=== PATIENT | male | born 1950 | race Caucasian/White ===

== ENCOUNTER 2017-09-15 13:48 | Inpatient (IN) | payer OTHER ==
[~2017-09-15] VITALS: Ht 172.7 cm; Wt 81.3 kg
[~2017-09-15 13:48] MED LIST: BENZ-89 PO; LORA-741 PO; RISP3TAB11 PO; TEMA30CA4 PO
[2017-09-15] MEDS ORDERED: SODIUM CHLORIDE 0.9% 1000ML 1,000 ML IV ONE (13:54)
[2017-09-15] MEDS ORDERED: ALBUT/IPRATROP 3MG/0.5MG NEB 3 ML VIAL INH STA (13:59)
[2017-09-15] MEDS ORDERED: ACETAMINOPHEN 325 MG TAB PO ONE (14:00)
--- NOTE | 2017-09-15 14:06 | EMERGENCY ROOM VISIT NOTE ---
History Report prepared by Reji: Tyler Gaytan Under the Supervision of: Dr. Librado Reeder D.O. First contact with patient: 13:50 Stated Complaint: SOB/ILLNESS/FEVER History of Present Illness The patient is a 67 year old male who presents to the Emergency Room with complaints of a persistent illness for the past 20 weeks. The patient states that he has a fever, weakness, productive cough, dizziness, and he is losing his balance. He states that he has not taken any Motrin or Tylenol, though he states that he is taking all of his medications. He notes that he is not hearing any voices, and he does not have any thoughts of hurting himself. Per the EMS, the patient had his pneumonia vaccination this year. The patient currently is a smoker, and he does not use any inhalers. History is limited to altered mental status. Source of History: patient History Limited By: AMS Onset: 20 weeks ago Position: other (global) Quality: other (illness) Timing: other (persistent) Associated Symptoms: + fevers, + cough, + weakness Note: Associated symptoms: Dizziness Review of Systems History was limited secondary to altered mental status Past Medical & Surgical Medical Problems: (1) Chronic paranoid schizophrenia Family History No significant family history Social History Smoking Status: Current Every Day Smoker Alcohol Use: none Drug Use: none Marital Status: other Housing Status: other Occupation Status: other Current/Historical Medications Scheduled Risperidone (Risperdal), 4 MG PO BID Temazepam (Restoril), 30 MG PO HS Scheduled PRN Lorazepam (Lorazepam), 1 MG PO BID PRN for Anxiety Allergies Coded Allergies: [place] (Unverified Allergy, Unknown, UNKNOWN, 09/15/17) Physical Exam Vital Signs Date Time Temp Pulse Resp B/P (MAP) Pulse Ox O2 Delivery O2 Flow Rate FiO2 09/15/17 17:31 99 22 133/88 96 Nasal Cannula 4.0 09/15/17 16:17 37.1 108 18 134/76 93 Nasal Cannula 4.0 09/15/17 15:08 38.6 109 24 164/98 99 Nasal Cannula 4.0 09/15/17 14:17 95 Nasal Cannula 4.0 09/15/17 14:09 90 Room Air 09/15/17 14:09 38.1 131 24 137/70 90 Room Air 1/19/18 14:09 90 Room Air 09/15/17 14:06 123 Physical Exam GENERAL: Patient is awake, altered, slow to answer questions, intermittently follows commands. EYES: The conjunctivae are clear. The pupils are round and reactive. EARS, NOSE, MOUTH AND THROAT: The nose is without any evidence of any deformity. Mucous membranes are moist tongue is midline NECK: The neck is nontender and supple. RESPIRATORY: Breath sounds diminished at the right base. Wheezing noted at the right base. CARDIOVASCULAR: Tachycardic but regular. No definite murmur noted to auscultation. GASTROINTESTINAL: The abdomen is soft. Bowel sounds are present in all quadrants. Abdomen is nontender MUSCULOSKELETAL/EXTREMITIES: There is no evidence of gross deformity full range of motion is noted in the hips and shoulders SKIN: There is no obvious evidence of any rash. There are no petechiae, pallor or cyanosis noted. NEUROLOGIC: Patient is oriented to person, place, and situation. Strength was symmetric. Medical Decision & Procedures ER Provider Diagnostic Interpretation: Radiology results as stated below per my review and radiologist interpretation: CHEST ONE VIEW PORTABLE CLINICAL HISTORY: Sepsis dyspnea COMPARISON STUDY: 08/11/2016 FINDINGS: Lungs are grossly clear. Slight chronic interstitial prominence. No evidence for cardiac enlargement. Diaphragms are smooth. IMPRESSION: Chronic change. No acute process. The above report was generated using voice recognition software. It may contain grammatical, syntax or spelling errors. Electronically signed by: Jimmy Eagle M.D. 09/15/2017 2:18 PM Dictated Date/Time: 09/15/2017 2:[address] ANGIOGRAM OF THE CHEST CLINICAL HISTORY: Dyspnea. COMPARISON STUDY: Chest CT dated 09/17/2015. Chest x-ray dated 09/15/2017. TECHNIQUE: Following the IV administration of 89 cc of Optiray 320, CT angiogram of the chest was performed from the upper abdomen to the thoracic inlet utilizing the pulmonary embolus protocol. Images are reviewed in the axial, sagittal, and coronal planes. 3-D MIPS images are created and assessed. IV contrast was administered without complication. The examination is significantly degraded by motion artifact. CT DOSE: 680.97 mGy.cm FINDINGS: Thyroid: Imaged portions of the thyroid gland are normal in size and attenuation. Thoracic aorta: There is mild atherosclerotic calcification of the thoracic aorta, which is normal in caliber and demonstrates standard 3-vessel arch anatomy. No dissection is seen. Pulmonary vasculature: The pulmonary trunk is normal in caliber. There are no filling defects identified in main, lobar, or proximal segmental pulmonary branches to suggest pulmonary embolus. Evaluation of the peripheral branches is degraded by motion artifact. Heart: The heart is enlarged and without pericardial effusion. There are coronary artery calcifications. Lungs and pleural spaces: Evaluation of the lung parenchyma is degraded by motion artifact. There are advanced emphysematous changes. Trace pleural effusions are identified. There is no airspace consolidation typical for pneumonia. Mild peribronchial thickening is likely related to reactive airway disease. The trachea and central airways are clear. Mediastinum: There is no mediastinal lymphadenopathy. Nataly: Clear. Axillae: There is no axillary lymphadenopathy. Upper abdomen: There is a moderate hiatal hernia. There is atherosclerotic calcification of the visualized abdominal aorta. A calcified granuloma is seen in the spleen. There is a punctate nonobstructing left renal calculus. Diverticula are noted in the partially imaged left colon. Skeletal structures: The skeletal structures are osteopenic. No lytic or blastic bony lesions are seen. There is nonunion of a chronic distracted left posterior ninth rib fracture. IMPRESSION: 1. Motion compromised examination. 2. There is no evidence of pulmonary embolus in the main, lobar, or proximal segmental pulmonary arteries. 3. Advanced emphysema. 4. Trace pleural effusions are identified. No airspace consolidation is seen typical for pneumonia. Mild diffuse peribronchial thickening suggests reactive airway disease. Clinical correlation will be required. 5. Additional findings as above. Electronically signed by: Buck Guadarrama M.D. 09/15/2017 4:09 PM Dictated Date/Time: 09/15/2017 4:03 PM Laboratory Results Test 09/15/17 14:28 09/15/17 15:15 09/15/17 17:35 Erythrocyte Sedimentation Rate 3 mm/hr (0-14) Prothrombin Time 11.0 SECONDS (9.0-12.0) Prothromb Time International Ratio 1.0 (0.9-1.1) Activated Partial Thromboplast Time 33.5 SECONDS (21.0-31.0) Partial Thromboplastin Ratio 1.3 Venous Blood pH 7.37 (7.36-7.41) Venous Blood Partial Pressure CO2 46 mmHg (38.0-50.0) Venous Blood Partial Pressure O2 42 mmHg Venous Blood HCO3 26 mmol/L Venous Blood Oxygen Saturation 74.1 % Venous Blood Base Excess 0.2 mEq/L Phosphorus Level 2.9 mg/dl (2.5-4.9) Total Bilirubin 0.5 mg/dl (0.2-1) Aspartate Amino Transf (AST/SGOT) 29 U/L (15-37) Alanine Aminotransferase (ALT/SGPT) 25 U/L (12-78) Alkaline Phosphatase 33 U/L (45-117) Total Creatine Kinase 520 U/L (39-308) Creatine Kinase MB 1.6 ng/ml (0.5-3.6) Creatine Kinase MB Ratio 0.3 (0-3.0) C-Reactive Protein 5.30 mg/dl (0-0.29) Pro-B-Type Natriuretic Peptide 312 pg/ml (0-900) Total Protein 6.8 gm/dl (6.4-8.2) Albumin 3.7 gm/dl (3.4-5.0) Globulin 3.1 gm/dl (2.5-4.0) Albumin/Globulin Ratio 1.2 (0.9-2) Lipase 176 U/L (73-393) Influenza Type A Antigen POS for Influ A (NEG) Influenza Type B Antigen Neg for Influ B (NEG) Urine Color YELLOW Urine Appearance CLEAR (CLEAR) Urine pH 5.5 (4.5-7.5) Urine Specific [place] 1.041 (1.000-1.030) Urine Protein TRACE (NEG) Urine Glucose (UA) NEG (NEG) Urine Ketones TRACE (NEG) Urine Occult Blood NEG (NEG) Urine Nitrite NEG (NEG) Urine Bilirubin NEG (NEG) Urine Urobilinogen NEG (NEG) Urine Leukocyte Esterase NEG (NEG) Urine WBC (Auto) 1-5 /hpf (0-5) Urine RBC (Auto) 5-10 /hpf (0-4) Urine Hyaline Casts (Auto) 1-5 /lpf (0-5) Urine Epithelial Cells (Auto) 5-10 /lpf (0-5) Urine Bacteria (Auto) NEG (NEG) Date/Time Source Procedure Growth Status 09/15/17 00:00 Nasal MRSA DNA Surveillance Screen - Final Specimen Negative for MRSA by DNA Probe Complete Laboratory results per my review. Medications Administered Medications (Trade) Dose Ordered Sig/[place] Route Start Time Stop Time Status Last Admin Dose Admin Sodium Chloride 1,000 ml @ 999 mls/hr Q1H1M ONCE IV 09/15/17 13:54 09/15/17 14:54 DC 09/15/17 15:07 999 MLS/HR Acetaminophen (Tylenol Tab) 650 mg ONE ONCE PO 09/15/17 14:00 09/15/17 14:01 DC 09/15/17 15:07 650 MG Albuterol/ Ipratropium (Duoneb) 3 ml NOW STAT INH 09/15/17 13:59 09/15/17 14:00 DC 09/15/17 15:07 3 ML Magnesium Sulfate (Magnesium Sulfate) 1 gm NOW STAT IV 09/15/17 15:17 09/15/17 15:18 DC 09/15/17 16:16 1 GM Oseltamivir Phosphate (Tamiflu Cap) 75 mg NOW STAT PO 09/15/17 16:09 09/15/17 16:10 DC 09/15/17 16:16 75 MG ECG Indication: other (illness and hypoxia) Rate (beats per minute): 130 Rhythm: other (Multifocal atrial tachycardia) Findings: PAC, other (Low voltage noted throughout. No significant ST segment abnormalities) Comparison ECG Date: 08/11/16 Change: Changes are new. EKG has been interpreted by me. ED Course 1350: The patient was evaluated in room A3. A complete history and physical examination were performed. 1354: NSS 1,000 ml @ 999 mls/hr IV 1359: DuoNeb 3ml INH 1400: Tylenol 650mg PO 1517: Magnesium Sulfate 1gm IV 1609: Tamiflu Cap 75mg PO 1610: Upon reevaluation, the patient is resting. I discussed results and treatment plan with him. The patient will be evaluated for further management and care. 1614: I discussed the patient's case with Saundra Billy PA-C. The patient will be evaluated for further management. Medical Decision Differential diagnosis: Etiologies such as infections, reactive airway disease, pneumonia, pneumothorax , COPD, CHF, cardiac ischemia, pulmonary embolism, musculoskeletal, gastrointestinal, as well as others were entertained. Nursing notes reviewed. Additional history was obtained from the prehospital personnel. The patient is a 67-year-old male who presented to the emergency department for an acute febrile illness. The patient had respiratory symptoms such as cough. His CBC did not reveal significant elevation in his white blood cell count with the patient had tachycardia and fever. His EKG showed some abnormalities consistent with multifocal atrial tachycardia. His troponin was mildly elevated. His flu swab was positive. The patient was treated with IV fluids as well as Tamiflu. I discussed the patient's laboratory and radiographic studies with him. I also discussed his case with the on-call [facility] hospitalist group. They've agreed to evaluate the patient in the emergency department for further management and disposition. He was treated with bronchodilator therapy as well as a DuoNeb. On subsequent reevaluation he was significantly improved. Medication Reconcilliation Current Medication List: was personally reviewed by me Blood Pressure Screening Patient's blood pressure: Elevated blood pressure Monitored by the hospitalist. Consults Time Called: 1610 Consulting Physician: Saundra Billy PA-C Returned Call: 1614 I discussed the patient's case with Saundra Billy PA-C. The patient will be evaluated for further management. Impression Primary Impression: Influenza Additional Impressions: Fever Hypoxia Elevated troponin Scribe Attestation The scribe's documentation has been prepared under my direction and personally reviewed by me in its entirety. I confirm that the note above accurately reflects all work, treatment, procedures, and medical decision making performed by me. Departure Information Dispostion Being Evaluated By Hospitalist Referrals No Doctor, Assigned (PCP) Problem Qualifiers Additional Impressions: Fever Fever type: unspecified Qualified Codes: R50.9 - Fever, unspecified
--- NOTE | 2017-09-15 14:19 | DIAGNOSTIC IMAGING REPORT ---
CHEST ONE VIEW PORTABLE CLINICAL HISTORY: Sepsis dyspnea COMPARISON STUDY: 08/11/2016 FINDINGS: Lungs are grossly clear. Slight chronic interstitial prominence. No evidence for cardiac enlargement. Diaphragms are smooth. IMPRESSION: Chronic change. No acute process. The above report was generated using voice recognition software. It may contain grammatical, syntax or spelling errors. Electronically signed by: Jimmy Eagle M.D. 09/15/2017 2:18 PM Dictated Date/Time: 09/15/2017 2:17 PM
[2017-09-15 14:57] LABS: BASO % 0.7 %; BASO ABS # 0.05 K/uL (0-0.2); HEMATOCRIT 44.5 % (42-52); HEMOGLOBIN 15.2 g/dL (14.0-18.0); IG# 0.02 K/uL (0.00-0.02); LYMPH % 6.9 %; LYMPH ABS # 0.48 K/uL (1.2-3.4); MEAN CELL VOLUME 90.4 fL (80-100); MEAN CORPUSCULAR HEMOGLOBIN 30.9 pg (25-34); MEAN CORPUSCULAR HGB CONC 34.2 g/dl (32-36); MEAN PLATELET VOLUME 10.1 fL (7.4-10.4); MONO ABS # 1.11 K/uL (0.11-0.59); NEUT % 76.1 %; NEUT ABS # 5.26 K/uL (1.4-6.5); PLATELET COUNT 186 K/uL (130-400); RED CELL DISTRIBUTION WIDTH CV 14.3 % (11.5-14.5); RED CELL DISTRIBUTION WIDTH SD 47.9 fL (36.4-46.3); WHITE BLOOD COUNT 6.92 K/uL (4.8-10.8)
[2017-09-15] MEDS ORDERED: RST/30 PO (14:57)
[2017-09-15] MEDS ORDERED: ATV1 PO (14:57)
[2017-09-15] MEDS ORDERED: RISP4TAB2 PO (14:57)
[2017-09-15] MEDS ORDERED: RSP3 PO (14:57)
[2017-09-15 15:04] LABS: PTT PATIENT 33.5 SECONDS (21.0-31.0)
[2017-09-15 15:16] LABS: ALBUMIN 3.7 gm/dl (3.4-5.0); CALCIUM 8.7 mg/dl (8.5-10.1); CREATININE 1.4 mg/dl (0.60-1.40); POTASSIUM 4.2 mmol/L (3.5-5.1)
[2017-09-15] MEDS ORDERED: MAGNESIUM SULFATE 1GM / D5W 1 GM BAG IV STA (15:17)
[2017-09-15 15:21] LABS: CKMB 1.6 ng/ml (0.5-3.6); PHOSPHORUS 2.9 mg/dl (2.5-4.9); TOTAL PROTEIN 6.8 gm/dl (6.4-8.2)
[2017-09-15] MEDS ORDERED: OPTIRAY 320 IV PRN (15:30)
[2017-09-15 15:58] LABS: INFLUENZA B ANTIGEN Neg for Influ B (NEG)
[2017-09-15] MEDS ORDERED: OSELTAMIVIR PHOSPHATE 75 MG CAP PO STA (16:09)
--- NOTE | 2017-09-15 16:10 | DIAGNOSTIC IMAGING REPORT ---
CT ANGIOGRAM OF THE CHEST CLINICAL HISTORY: Dyspnea. COMPARISON STUDY: Chest CT dated 09/17/2015. Chest x-ray dated 09/15/2017. TECHNIQUE: Following the IV administration of 89 cc of Optiray 320, CT angiogram of the chest was performed from the upper abdomen to the thoracic inlet utilizing the pulmonary embolus protocol. Images are reviewed in the axial, sagittal, and coronal planes. 3-D MIPS images are created and assessed. IV contrast was administered without complication. The examination is significantly degraded by motion artifact. CT DOSE: 680.97 mGy.cm FINDINGS: Thyroid: Imaged portions of the thyroid gland are normal in size and attenuation. Thoracic aorta: There is mild atherosclerotic calcification of the thoracic aorta, which is normal in caliber and demonstrates standard 3-vessel arch anatomy. No dissection is seen. Pulmonary vasculature: The pulmonary trunk is normal in caliber. There are no filling defects identified in main, lobar, or proximal segmental pulmonary branches to suggest pulmonary embolus. Evaluation of the peripheral branches is degraded by motion artifact. Heart: The heart is enlarged and without pericardial effusion. There are coronary artery calcifications. Lungs and pleural spaces: Evaluation of the lung parenchyma is degraded by motion artifact. There are advanced emphysematous changes. Trace pleural effusions are identified. There is no airspace consolidation typical for pneumonia. Mild peribronchial thickening is likely related to reactive airway disease. The trachea and central airways are clear. Mediastinum: There is no mediastinal lymphadenopathy. Nataly: Clear. Axillae: There is no axillary lymphadenopathy. Upper abdomen: There is a moderate hiatal hernia. There is atherosclerotic calcification of the visualized abdominal aorta. A calcified granuloma is seen in the spleen. There is a punctate nonobstructing left renal calculus. Diverticula are noted in the partially imaged left colon. Skeletal structures: The skeletal structures are osteopenic. No lytic or blastic bony lesions are seen. There is nonunion of a chronic distracted left posterior ninth rib fracture. IMPRESSION: 1. Motion compromised examination. 2. There is no evidence of pulmonary embolus in the main, lobar, or proximal segmental pulmonary arteries. 3. Advanced emphysema. 4. Trace pleural effusions are identified. No airspace consolidation is seen typical for pneumonia. Mild diffuse peribronchial thickening suggests reactive airway disease. Clinical correlation will be required. 5. Additional findings as above. Electronically signed by: Buck Guadarrama M.D. 09/15/2017 4:09 PM Dictated Date/Time: 09/15/2017 4:03 PM
--- NOTE | 2017-09-15 16:36 | History and Physical ---
History & Physical Date & Time of Service: Sep 15, 2017 at 16:35 Chief Complaint: Sob/Illness/Fever Primary Care Physician: No Doctor, Assigned History of Present Illness Source: patient Patient is a 67 yr male with Paranoid Schizophrenia, Dementia, Leukemia per records, Current Tobacco use presents with history of fever, weakness, non productive cough, dizziness and has been having balance issues since last 2-3 weeks. Patient is a poor historian and history id limited secondary to Schizophrenia, dementia and most of the history is obtained on reviewing the records. Patient is reports he is having balance issues since this morning and doesn't feel well. He admits to smoking on a daily basis. He is positive for Influenza and CT chest is suggestive of advanced emphysema, No PE, trace pleural effusion and reactive airway disease. Patient denies any chest pain, SOB , palpitations, fall, head trauma, change in vision, nausea, vomiting, abdominal pain, diarrhea, dysuria. He also denies any suicidal/Homicidal thoughts. Past Medical/Surgical History Medical Problems: (1) Chronic paranoid schizophrenia Status: Chronic Family History No significant family history Could not be obtained. Social History Smoking Status: Current Every Day Smoker Alcohol Use: none Drug Use: none Marital Status: other Housing status: other Occupational Status: other Immunizations History of Influenza Vaccine: Yes Influenza Vaccine Date: Jun 01, 2012 History of Tetanus Vaccine?: unknown History of Pneumococcal: No History of Hepatitis B Vaccine: Unknown Multi-Drug Resistant Organisms History of MDRO: No Allergies Coded Allergies: [place] (Unverified Allergy, Unknown, UNKNOWN, 09/15/17) Home Medications Scheduled Lorazepam (Lorazepam), 1 MG PO TID Risperidone (Risperdal), 4 MG PO BID Risperidone (Risperidone), 3 MG PO QAM Temazepam (Restoril), 30 MG PO HS Review of Systems Complete ROS could not be obtained secondary to patient status Physical Exam Vital Signs Date Time Temp Pulse Resp B/P (MAP) Pulse Ox O2 Delivery O2 Flow Rate FiO2 09/15/17 16:17 37.1 108 18 134/76 93 Nasal Cannula 4.0 09/15/17 15:08 38.6 109 24 164/98 99 Nasal Cannula 4.0 09/15/17 14:17 95 Nasal Cannula 4.0 09/15/17 14:09 90 Room Air 09/15/17 14:09 38.1 131 24 137/70 90 Room Air 09/15/17 14:09 90 Room Air 09/15/17 14:06 123 General Appearance: WD/WN, no apparent distress Head: normocephalic, atraumatic Eyes: normal inspection, PERRL, EOMI ENT: normal ENT inspection, hearing grossly normal Neck: supple, trachea midline Respiratory/Chest: chest non-tender, no respiratory distress, no accessory muscle use, + decreased breath sounds, + wheezing (Scattered) Cardiovascular: regular rate, rhythm, no edema, no murmur, + tachycardia Abdomen/GI: normal bowel sounds, non tender, soft Back: normal inspection Extremities/Musculoskelatal: normal inspection, no pedal edema Neurologic/Psych: 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 II-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 nml as tested, no motor/sensory deficits, alert, normal mood/affect, oriented x 3 Skin: normal color, warm/dry Diagnostics Laboratory Results Results Past 24 Hours Test 09/15/17 14:28 09/15/17 15:15 Range/Units White Blood Count 6.92 4.8-10.8 K/uL Red Blood Count 4.92 4.7-6.1 M/uL Hemoglobin 15.2 14.0-18.0 g/dL Hematocrit 44.5 42-52 % Mean Corpuscular Volume 90.4 80-100 fL Mean Corpuscular Hemoglobin 30.9 25-34 pg Mean Corpuscular Hemoglobin Concent 34.2 32-36 g/dl Platelet Count 186 130-400 K/uL Mean Platelet Volume 10.1 7.4-10.4 fL Neutrophils (%) (Auto) 76.1 % Lymphocytes (%) (Auto) 6.9 % Monocytes (%) (Auto) 16.0 % Eosinophils (%) (Auto) 0.0 % Basophils (%) (Auto) 0.7 % Neutrophils # (Auto) 5.26 1.4-6.5 K/uL Lymphocytes # (Auto) 0.48 1.2-3.4 K/uL Monocytes # (Auto) 1.11 0.11-0.59 K/uL Eosinophils # (Auto) 0.00 0-0.5 K/uL Basophils # (Auto) 0.05 0-0.2 K/uL RDW Standard Deviation 47.9 36.4-46.3 fL RDW Coefficient of Variation 14.3 11.5-14.5 % Immature Granulocyte % (Auto) 0.3 % Immature Granulocyte # (Auto) 0.02 0.00-0.02 K/uL Erythrocyte Sedimentation Rate 3 0-14 mm/hr Prothrombin Time 11.0 9.0-12.0 SECONDS Prothromb Time International Ratio 1.0 0.9-1.1 Activated Partial Thromboplast Time 33.5 21.0-31.0 SECONDS Partial Thromboplastin Ratio 1.3 Venous Blood pH 7.37 7.36-7.41 Venous Blood Partial Pressure CO2 46 38.0-50.0 mmHg Venous Blood Partial Pressure O2 42 mmHg Venous Blood HCO3 26 mmol/L Venous Blood Oxygen Saturation 74.1 % Venous Blood Base Excess 0.2 mEq/L Sodium Level 131 136-145 mmol/L Potassium Level 4.2 3.5-5.1 mmol/L Chloride Level 98 98-107 mmol/L Carbon Dioxide Level 27 21-32 mmol/L Anion Gap 6.0 3-11 mmol/L Blood Urea Nitrogen 21 7-18 mg/dl Creatinine 1.40 0.60-1.40 mg/dl Est Creatinine Clear Calc Drug Dose 55.3 ml/min Estimated GFR () 60.3 Estimated GFR (Non- 52.0 BUN/Creatinine Ratio 15.3 10-20 Random Glucose 85 70-99 mg/dl Calcium Level 8.7 8.5-10.1 mg/dl Phosphorus Level 2.9 2.5-4.9 mg/dl Magnesium Level 1.7 1.8-2.4 mg/dl Total Bilirubin 0.5 0.2-1 mg/dl Aspartate Amino Transf (AST/SGOT) 29 15-37 U/L Alanine Aminotransferase (ALT/SGPT) 25 12-78 U/L Alkaline Phosphatase 33 45-117 U/L Total Creatine Kinase 520 39-308 U/L Creatine Kinase MB 1.6 0.5-3.6 ng/ml Creatine Kinase MB Ratio 0.3 0-3.0 Troponin I 0.064 0-0.045 ng/ml C-Reactive Protein 5.30 0-0.29 mg/dl Pro-B-Type Natriuretic Peptide 312 0-900 pg/ml Total Protein 6.8 6.4-8.2 gm/dl Albumin 3.7 3.4-5.0 gm/dl Globulin 3.1 2.5-4.0 gm/dl Albumin/Globulin Ratio 1.2 0.9-2 Lipase 176 73-393 U/L Influenza Type A Antigen POS for Influ A NEG Influenza Type B Antigen Neg for Influ B NEG Microbiology Results 09/15/17 Blood Culture, Received Pending 09/15/17 Blood Culture, Received Pending Diagnostic Radiology CTA: 1. Motion compromised examination. 2. There is no evidence of pulmonary embolus in the main, lobar, or proximal segmental pulmonary arteries. 3. Advanced emphysema. 4. Trace pleural effusions are identified. No airspace consolidation is seen typical for pneumonia. Mild diffuse peribronchial thickening suggests reactive airway disease. Clinical correlation will be required. 5. Additional findings as above. EKG EKG: Sinus tachycardia with Premature atrial complexes Impression Assessment and Plan Influenza Meets SIRS Criteria Started on Tamiflu Oxygen PRN Empirically start on IV Abx CTA:suggestive of advanced emphysema, No PE, trace pleural effusion and reactive airway disease Check Lactate, Procalcitonin Gentle IV fluids Blood Cultures Obtained UA: pending Nebs Hyponatremia/Hypomagnesemia: Likely secondary to dehydration Replace electrolytes IV fluids Monitor Mild Troponin Elevation: Likely secondary to Tachycardia Denies chest Pain EKG: Sinus Tachycardia with PACs Trend Troponin ECHO to check for wall motion abnormality Advanced COPD: Ongoing Tobacco Use: Refuses Nicotine patch Nebs Paranoid Schizophrenia: Dementia: Continue home meds Psychiatry consulted Leukemia per records: Patient unaware of status. Currently not on meds per records DVT Px: SQ Lovenox Code Status: Full Code Disposition: creative services director consulted
[2017-09-15] MEDS ORDERED: ACETAMINOPHEN 325 MG TAB PO PRN (18:00)
[2017-09-15] MEDS ORDERED: ONDANSETRON INJ 2 MG/ML 2 ML VIAL IV PRN (18:00)
[2017-09-15] MEDS ORDERED: AZITHROMYCIN 250 MG TAB PO ONE (18:15)
[2017-09-15 19:43] VITALS: BP 115/76; PULSE 94; TEMP 37.1; O2SAT 95
[2017-09-15 19:45] VITALS: BP 115/76; PULSE 94; TEMP 37.1; O2SAT 95; Ht 172.7 cm; Wt 81.3 kg
[2017-09-15] MEDS ORDERED: TEMAZEPAM 15 MG CAP PO SCH (21:00)
[2017-09-15] MEDS ORDERED: LORAZEPAM 1 MG TAB PO SCH (21:00)
[2017-09-15] MEDS: SODIUM CHLORIDE 0.9% 1000ML 1,000 ML IV SCH (21:04)
[2017-09-15] MEDS: CEFTRIAXONE SOD INJ 1 GM in DEXTROSE 5% ADD-VANTAGE 50ML 50 ML IV SCH (21:06)
[2017-09-15] MEDS: ENOXAPARIN 40 MG/0.4 ML SYR SC SCH (21:07)
[2017-09-15] MEDS: OSELTAMIVIR PHOSPHATE 75 MG CAP PO SCH (21:47)
[2017-09-15] MEDS: ALBUT/IPRATROP 3MG/0.5MG NEB 3 ML VIAL INH SCH (22:13)
[2017-09-15 22:16] VITALS: PULSE 103; O2SAT 92
[2017-09-16] VITALS (11 sets, daily range): BP systolic 106–142; BP diastolic 69–89; PULSE 81–99; TEMP 36.5–37.4; O2SAT 90–97
[2017-09-16 02:38] LABS: HEMATOCRIT 41.9 % (42-52); HEMOGLOBIN 14.3 g/dL (14.0-18.0); IG# 0.01 K/uL (0.00-0.02); LYMPH % 6.5 %; LYMPH ABS # 0.42 K/uL (1.2-3.4); MEAN CELL VOLUME 91.5 fL (80-100); MEAN CORPUSCULAR HEMOGLOBIN 31.2 pg (25-34); MEAN CORPUSCULAR HGB CONC 34.1 g/dl (32-36); MEAN PLATELET VOLUME 9.8 fL (7.4-10.4); MONO % 11.1 %; MONO ABS # 0.71 K/uL (0.11-0.59); NEUT % 82.2 %; NEUT ABS # 5.28 K/uL (1.4-6.5); PLATELET COUNT 174 K/uL (130-400); RED CELL DISTRIBUTION WIDTH CV 14.4 % (11.5-14.5); RED CELL DISTRIBUTION WIDTH SD 48.8 fL (36.4-46.3); WHITE BLOOD COUNT 6.42 K/uL (4.8-10.8)
[2017-09-16 02:55] LABS: CALCIUM 7.7 mg/dl (8.5-10.1); CREATININE 1.2 mg/dl (0.60-1.40); POTASSIUM 4.6 mmol/L (3.5-5.1)
[2017-09-16] MEDS: ALBUT/IPRATROP 3MG/0.5MG NEB 3 ML VIAL INH SCH ×4 (07:21→19:17)
[2017-09-16] MEDS: AZITHROMYCIN 250 MG TAB PO SCH (08:14)
[2017-09-16] MEDS: OSELTAMIVIR PHOSPHATE 75 MG CAP PO SCH ×2 (08:14→19:57)
[2017-09-16] MEDS: LORAZEPAM 0.5 MG TAB PO SCH ×2 (08:14→13:45)
[2017-09-16] MEDS: RISPERIDONE 2 MG TAB PO SCH ×2 (08:15→13:45)
[2017-09-16] MEDS ORDERED: RISPERIDONE 3 MG TAB PO SCH (09:00)
--- NOTE | 2017-09-16 09:19 | Progress Note ---
Internal Med Progress Note Date of Service: Sep 16, 2017. Provider Documentation: SUBJECTIVE: Seen and examined at bedside Feels tired Reports cough Less SOB Denies chest pain Denies nausea, dizziness, abd pain No suicidal thoughts or hallucinations Saturating 96% on room air OBJECTIVE: Vital Signs-as noted below General Appearance: WD/WN, no apparent distress Head: normocephalic, atraumatic Eyes: normal inspection, PERRL, EOMI ENT: normal ENT inspection, hearing grossly normal Neck: supple, trachea midline Respiratory/Chest: Decreased breath sounds, scattered wheezing Cardiovascular: S1, S2, No murmur Abdomen/GI: normal bowel sounds, non tender, soft Back: normal inspection Extremities/Musculoskelatal: normal inspection, no pedal edema Neurologic/Psych: AAOX3, grossly no focal deficits Skin: normal color, warm/dry Lab data as noted below. ASSESSMENT & PLAN: Influenza Meets SIRS Criteria Continue Tamiflu day # 2 Oxygen PRN Continue empiric Abx for now CTA:suggestive of advanced emphysema, No PE, trace pleural effusion and reactive airway disease Lactate, Procalcitonin levels normal Continue IV fluids Blood Cultures: pending Continue Nebs NSVT: Check ECHO Monitor electrolytes Stress test as outpatient consider metoprolol if recurrent Hyponatremia/Hypomagnesemia: Likely secondary to dehydration Replace electrolytes PRN Continue IV fluids Monitor Mild Troponin Elevation: Likely secondary to Tachycardia Denies chest Pain EKG: Sinus Tachycardia with PACs Troponin trending down ECHO pending Advanced COPD: Ongoing Tobacco Use: Refuses Nicotine patch Continue Nebs Continue Prednisone 20mg daily Paranoid Schizophrenia: Dementia: Continue home meds Psychiatry consulted Leukemia per records: Patient unaware of status. Currently not on meds per records DVT Px: SQ Lovenox Code Status: Full Code Disposition: business services coordinator consulted Vital Signs: Date Time Temp Pulse Resp B/P (MAP) Pulse Ox O2 Delivery O2 Flow Rate FiO2 09/16/17 11:09 86 18 95 Room Air 09/16/17 08:00 Room Air 09/16/17 07:15 81 18 96 Room Air 09/16/17 06:57 36.8 87 20 122/80 (94) 91 Room Air 09/16/17 04:00 Nasal Cannula 4.0 09/16/17 03:22 37.4 85 18 106/69 (81) 97 09/16/17 00:29 Nasal Cannula 4.0 09/16/17 00:16 37.0 90 16 113/72 (86) 92 09/15/17 22:16 103 20 92 Nasal Cannula 3.0 09/15/17 19:45 37.1 94 22 115/76 95 Nasal Cannula 2.0 09/15/17 19:43 37.1 94 22 115/76 (89) 95 Nasal Cannula 2.0 09/15/17 19:21 98 20 152/92 95 Nasal Cannula 4.0 09/15/17 18:30 95 20 113/65 97 Nasal Cannula 4.0 09/15/17 18:20 97 09/15/17 17:31 99 22 133/88 96 Nasal Cannula 4.0 09/15/17 16:17 37.1 108 18 134/76 93 Nasal Cannula 4.0 09/15/17 15:08 38.6 109 24 164/98 99 Nasal Cannula 4.0 09/15/17 14:17 95 Nasal Cannula 4.0 09/15/17 14:09 90 Room Air 09/15/17 14:09 38.1 131 24 137/70 90 Room Air 09/15/17 14:09 90 Room Air 09/15/17 14:06 123 Lab Results: Results Past 24 Hours Test 09/15/17 14:28 09/15/17 15:15 09/15/17 17:35 09/15/17 20:30 Range/Units White Blood Count 6.92 4.8-10.8 K/uL Red Blood Count 4.92 4.7-6.1 M/uL Hemoglobin 15.2 14.0-18.0 g/dL Hematocrit 44.5 42-52 % Mean Corpuscular Volume 90.4 80-100 fL Mean Corpuscular Hemoglobin 30.9 25-34 pg Mean Corpuscular Hemoglobin Concent 34.2 32-36 g/dl Platelet Count 186 130-400 K/uL Mean Platelet Volume 10.1 7.4-10.4 fL Neutrophils (%) (Auto) 76.1 % Lymphocytes (%) (Auto) 6.9 % Monocytes (%) (Auto) 16.0 % Eosinophils (%) (Auto) 0.0 % Basophils (%) (Auto) 0.7 % Neutrophils # (Auto) 5.26 1.4-6.5 K/uL Lymphocytes # (Auto) 0.48 1.2-3.4 K/uL Monocytes # (Auto) 1.11 0.11-0.59 K/uL Eosinophils # (Auto) 0.00 0-0.5 K/uL Basophils # (Auto) 0.05 0-0.2 K/uL RDW Standard Deviation 47.9 36.4-46.3 fL RDW Coefficient of Variation 14.3 11.5-14.5 % Immature Granulocyte % (Auto) 0.3 % Immature Granulocyte # (Auto) 0.02 0.00-0.02 K/uL Erythrocyte Sedimentation Rate 3 0-14 mm/hr Prothrombin Time 11.0 9.0-12.0 SECONDS Prothromb Time International Ratio 1.0 0.9-1.1 Activated Partial Thromboplast Time 33.5 21.0-31.0 SECONDS Partial Thromboplastin Ratio 1.3 Venous Blood pH 7.37 7.36-7.41 Venous Blood Partial Pressure CO2 46 38.0-50.0 mmHg Venous Blood Partial Pressure O2 42 mmHg Venous Blood HCO3 26 mmol/L Venous Blood Oxygen Saturation 74.1 % Venous Blood Base Excess 0.2 mEq/L Sodium Level 131 136-145 mmol/L Potassium Level 4.2 3.5-5.1 mmol/L Chloride Level 98 98-107 mmol/L Carbon Dioxide Level 27 21-32 mmol/L Anion Gap 6.0 3-11 mmol/L Blood Urea Nitrogen 21 7-18 mg/dl Creatinine 1.40 0.60-1.40 mg/dl Est Creatinine Clear Calc Drug Dose 55.3 ml/min Estimated GFR () 60.3 Estimated GFR (Non- 52.0 BUN/Creatinine Ratio 15.3 10-20 Random Glucose 85 70-99 mg/dl Calcium Level 8.7 8.5-10.1 mg/dl Phosphorus Level 2.9 2.5-4.9 mg/dl Magnesium Level 1.7 1.8-2.4 mg/dl Total Bilirubin 0.5 0.2-1 mg/dl Aspartate Amino Transf (AST/SGOT) 29 15-37 U/L Alanine Aminotransferase (ALT/SGPT) 25 12-78 U/L Alkaline Phosphatase 33 45-117 U/L Total Creatine Kinase 520 39-308 U/L Creatine Kinase MB 1.6 0.5-3.6 ng/ml Creatine Kinase MB Ratio 0.3 0-3.0 Troponin I 0.064 0.067 0-0.045 ng/ml C-Reactive Protein 5.30 0-0.29 mg/dl Pro-B-Type Natriuretic Peptide 312 0-900 pg/ml Total Protein 6.8 6.4-8.2 gm/dl Albumin 3.7 3.4-5.0 gm/dl Globulin 3.1 2.5-4.0 gm/dl Albumin/Globulin Ratio 1.2 0.9-2 Lipase 176 73-393 U/L Influenza Type A Antigen POS for Influ A NEG Influenza Type B Antigen Neg for Influ B NEG Urine Color YELLOW Urine Appearance CLEAR CLEAR Urine pH 5.5 4.5-7.5 Urine Specific [place] 1.041 1.000-1.030 Urine Protein TRACE NEG Urine Glucose (UA) NEG NEG Urine Ketones TRACE NEG Urine Occult Blood NEG NEG Urine Nitrite NEG NEG Urine Bilirubin NEG NEG Urine Urobilinogen NEG NEG Urine Leukocyte Esterase NEG NEG Urine WBC (Auto) 1-5 0-5 /hpf Urine RBC (Auto) 5-10 0-4 /hpf Urine Hyaline Casts (Auto) 1-5 0-5 /lpf Urine Epithelial Cells (Auto) 5-10 0-5 /lpf Urine Bacteria (Auto) NEG NEG Lactic Acid Level 0.8 0.4-2.0 mmol/L Procalcitonin 0.05 0-0.5 ng/ml Hepatitis C Antibody Screen NEG NEG Test 09/16/17 02:28 Range/Units White Blood Count 6.42 4.8-10.8 K/uL Red Blood Count 4.58 4.7-6.1 M/uL Hemoglobin 14.3 14.0-18.0 g/dL Hematocrit 41.9 42-52 % Mean Corpuscular Volume 91.5 80-100 fL Mean Corpuscular Hemoglobin 31.2 25-34 pg Mean Corpuscular Hemoglobin Concent 34.1 32-36 g/dl Platelet Count 174 130-400 K/uL Mean Platelet Volume 9.8 7.4-10.4 fL Neutrophils (%) (Auto) 82.2 % Lymphocytes (%) (Auto) 6.5 % Monocytes (%) (Auto) 11.1 % Eosinophils (%) (Auto) 0.0 % Basophils (%) (Auto) 0.0 % Neutrophils # (Auto) 5.28 1.4-6.5 K/uL Lymphocytes # (Auto) 0.42 1.2-3.4 K/uL Monocytes # (Auto) 0.71 0.11-0.59 K/uL Eosinophils # (Auto) 0.00 0-0.5 K/uL Basophils # (Auto) 0.00 0-0.2 K/uL RDW Standard Deviation 48.8 36.4-46.3 fL RDW Coefficient of Variation 14.4 11.5-14.5 % Immature Granulocyte % (Auto) 0.2 % Immature Granulocyte # (Auto) 0.01 0.00-0.02 K/uL Sodium Level 132 136-145 mmol/L Potassium Level 4.6 3.5-5.1 mmol/L Chloride Level 101 98-107 mmol/L Carbon Dioxide Level 28 21-32 mmol/L Anion Gap 3.0 3-11 mmol/L Blood Urea Nitrogen 22 7-18 mg/dl Creatinine 1.20 0.60-1.40 mg/dl Est Creatinine Clear Calc Drug Dose 64.5 ml/min Estimated GFR () 72.6 Estimated GFR (Non- 62.6 BUN/Creatinine Ratio 18.2 10-20 Random Glucose 97 70-99 mg/dl Calcium Level 7.7 8.5-10.1 mg/dl Magnesium Level 2.0 1.8-2.4 mg/dl Troponin I 0.057 0-0.045 ng/ml Microbiology Results 09/15/17 Blood Culture, Received Pending 09/15/17 Blood Culture, Received Pending
[2017-09-16] MEDS: FAMOTIDINE 20 MG TAB PO SCH ×2 (09:52→19:57)
[2017-09-16] MEDS: SODIUM CHLORIDE 0.9% 1000ML 1,000 ML IV SCH ×2 (11:22→19:55)
--- NOTE | 2017-09-16 12:55 | Psychiatric Consultation ---
Consultation Date of Consultation Sep 16, 2017. Identifying Data Patient is a 67yo male admitted to the medical service with consultation placed to verify psychotropic medications and dosing is appropriate for this patient while medically hospitalized. Chief Complaint "I feel okay". History of Present Illness [facility] liaison nurse contacted [facility] and reviewed outpatient medication refills, and doses and completed medication reconciliation, then reviewed by this provider. Per pharmacist patient is not always consistent with his refills. Met with patient at the bedside. He denied acute concerns stating he feels "okay" noting at baseline the last several months he can feel tired at times and "a little down" but denies feeling overtly depressed. He denies overt hallucinations and does not admit to any current delusions. He states when exposed to loud places or noises he can feel overwhelmed "sometimes I misperceive what I am hearing." He denies safety concerns or thoughts to harm others. He also verifies his medication doses. He states he has been on injection of risperdal before "I did not like it" He denies EPS, dystonia, tremor or problems with medication other than that it may contribute to his tiredness. He looks forward to getting an apartment Monday as he was helped by Joaquina at [facility]. He notes he has a card at home that identifies his next visit with Dr Campbell. Meds: Risperdal 4mg po qAM and 4mag a 1300, ativan 1mg po bid prn anxiety, and temazepam 30mg/hs prn insomnia. Past Psychiatric History Current OP Treatment: psychiatrist (Dr Campbell) Access to a Gun: No Suicide Attempts: No Allergies Allergies: Coded Allergies: Wilsey (Unverified Allergy, Unknown, UNKNOWN, 09/15/17) Home Medications Scheduled Risperidone (Risperdal), 4 MG PO BID Temazepam (Restoril), 30 MG PO HS Scheduled PRN Lorazepam (Lorazepam), 1 MG PO BID PRN for Anxiety Family History No significant family history Smoking Use Smoking Status: Current Every Day Smoker Review of Systems Denies concerns other than stated in HPI Examination Vital Signs Vital Signs Past 12 Hours Date Time Temp Pulse Resp B/P (MAP) Pulse Ox O2 Delivery O2 Flow Rate FiO2 09/16/17 12:14 36.8 86 18 128/69 (88) 95 09/16/17 12:00 Room Air 09/16/17 11:09 86 18 95 Room Air 09/16/17 08:00 Room Air 09/16/17 07:15 81 18 96 Room Air 09/16/17 06:57 36.8 87 20 122/80 (94) 91 Room Air 09/16/17 04:00 Nasal Cannula 4.0 09/16/17 03:22 37.4 85 18 106/69 (81) 97 Laboratory Results Last 24 Hours Test 09/15/17 14:28 09/15/17 15:15 09/15/17 17:35 09/15/17 20:30 White Blood Count 6.92 K/uL Red Blood Count 4.92 M/uL Hemoglobin 15.2 g/dL Hematocrit 44.5 % Mean Corpuscular Volume 90.4 fL Mean Corpuscular Hemoglobin 30.9 pg Mean Corpuscular Hemoglobin Concent 34.2 g/dl Platelet Count 186 K/uL Mean Platelet Volume 10.1 fL Neutrophils (%) (Auto) 76.1 % Lymphocytes (%) (Auto) 6.9 % Monocytes (%) (Auto) 16.0 % Eosinophils (%) (Auto) 0.0 % Basophils (%) (Auto) 0.7 % Neutrophils # (Auto) 5.26 K/uL Lymphocytes # (Auto) 0.48 K/uL Monocytes # (Auto) 1.11 K/uL Eosinophils # (Auto) 0.00 K/uL Basophils # (Auto) 0.05 K/uL RDW Standard Deviation 47.9 fL RDW Coefficient of Variation 14.3 % Immature Granulocyte % (Auto) 0.3 % Immature Granulocyte # (Auto) 0.02 K/uL Erythrocyte Sedimentation Rate 3 mm/hr Prothrombin Time 11.0 SECONDS Prothromb Time International Ratio 1.0 Activated Partial Thromboplast Time 33.5 SECONDS Partial Thromboplastin Ratio 1.3 Venous Blood pH 7.37 Venous Blood Partial Pressure CO2 46 mmHg Venous Blood Partial Pressure O2 42 mmHg Venous Blood HCO3 26 mmol/L Venous Blood Oxygen Saturation 74.1 % Venous Blood Base Excess 0.2 mEq/L Sodium Level 131 mmol/L Potassium Level 4.2 mmol/L Chloride Level 98 mmol/L Carbon Dioxide Level 27 mmol/L Anion Gap 6.0 mmol/L Blood Urea Nitrogen 21 mg/dl Creatinine 1.40 mg/dl Est Creatinine Clear Calc Drug Dose 55.3 ml/min Estimated GFR () 60.3 Estimated GFR (Non- 52.0 BUN/Creatinine Ratio 15.3 Random Glucose 85 mg/dl Calcium Level 8.7 mg/dl Phosphorus Level 2.9 mg/dl Magnesium Level 1.7 mg/dl Total Bilirubin 0.5 mg/dl Aspartate Amino Transf (AST/SGOT) 29 U/L Alanine Aminotransferase (ALT/SGPT) 25 U/L Alkaline Phosphatase 33 U/L Total Creatine Kinase 520 U/L Creatine Kinase MB 1.6 ng/ml Creatine Kinase MB Ratio 0.3 Troponin I 0.064 ng/ml 0.067 ng/ml C-Reactive Protein 5.30 mg/dl Pro-B-Type Natriuretic Peptide 312 pg/ml Total Protein 6.8 gm/dl Albumin 3.7 gm/dl Globulin 3.1 gm/dl Albumin/Globulin Ratio 1.2 Lipase 176 U/L Influenza Type A Antigen POS for Influ A Influenza Type B Antigen Neg for Influ B Urine Color YELLOW Urine Appearance CLEAR Urine pH 5.5 Urine Specific [place] 1.041 Urine Protein TRACE Urine Glucose (UA) NEG Urine Ketones TRACE Urine Occult Blood NEG Urine Nitrite NEG Urine Bilirubin NEG Urine Urobilinogen NEG Urine Leukocyte Esterase NEG Urine WBC (Auto) 1-5 /hpf Urine RBC (Auto) 5-10 /hpf Urine Hyaline Casts (Auto) 1-5 /lpf Urine Epithelial Cells (Auto) 5-10 /lpf Urine Bacteria (Auto) NEG Lactic Acid Level 0.8 mmol/L Procalcitonin 0.05 ng/ml Hepatitis C Antibody Screen NEG Test 09/16/17 02:28 White Blood Count 6.42 K/uL Red Blood Count 4.58 M/uL Hemoglobin 14.3 g/dL Hematocrit 41.9 % Mean Corpuscular Volume 91.5 fL Mean Corpuscular Hemoglobin 31.2 pg Mean Corpuscular Hemoglobin Concent 34.1 g/dl Platelet Count 174 K/uL Mean Platelet Volume 9.8 fL Neutrophils (%) (Auto) 82.2 % Lymphocytes (%) (Auto) 6.5 % Monocytes (%) (Auto) 11.1 % Eosinophils (%) (Auto) 0.0 % Basophils (%) (Auto) 0.0 % Neutrophils # (Auto) 5.28 K/uL Lymphocytes # (Auto) 0.42 K/uL Monocytes # (Auto) 0.71 K/uL Eosinophils # (Auto) 0.00 K/uL Basophils # (Auto) 0.00 K/uL RDW Standard Deviation 48.8 fL RDW Coefficient of Variation 14.4 % Immature Granulocyte % (Auto) 0.2 % Immature Granulocyte # (Auto) 0.01 K/uL Sodium Level 132 mmol/L Potassium Level 4.6 mmol/L Chloride Level 101 mmol/L Carbon Dioxide Level 28 mmol/L Anion Gap 3.0 mmol/L Blood Urea Nitrogen 22 mg/dl Creatinine 1.20 mg/dl Est Creatinine Clear Calc Drug Dose 64.5 ml/min Estimated GFR () 72.6 Estimated GFR (Non- 62.6 BUN/Creatinine Ratio 18.2 Random Glucose 97 mg/dl Calcium Level 7.7 mg/dl Magnesium Level 2.0 mg/dl Troponin I 0.057 ng/ml Mental Examination During interview pt is: alert and oriented Appearance: disheveled Eye contact is: good Motor behavior is: no abnormal motor movements (gait not appreciated as he remained in hospital bed) Speech: normal in rate, rhythm & volume Affect: mood congruent, blunted Mood is: other ("okay") Thought process: goal directed, linear, logical, clear, coherent Thought content: reality based without delusions Suicidal thought are: denied Homicidal thoughts are: denied Hallucinations: denies auditory, denies visual Cognition: memory grossly intact Intelligence estimated to be: average Insight: good Judgement: good Impression / Recommendations Impression Dx: Schizophrenia, chronic Plan: Continue outpatient medications as noted above. At this time outpatient care is most appropriate setting for psychiatric care once medically discharged. Risk Factors Assessment Male: Yes : Yes /single/: Yes Higher / Fall in social status: No Access to guns: No Health problems: Yes Mental Health Diagnoses: Yes Substance use disorders: No Previous attempt: No Previous psychiatric stay: Yes Hopelessness: No Smoker: Yes Recommendations (1) Chronic paranoid schizophrenia Continue outpatinet medications Outpatient psychiatric care is most appropriate setting for care at this time once medical stable. Code 86141 (spent >30min reviewing record, interviewing patient, and documentation.)
--- NOTE | 2017-09-16 13:25 | ECHOCARDIOGRAM REPORT ---
*NOTICE TO RECEIVING [employer]Y This information is strictly Confidential and protected under [place] law. [place] law prohibits you from making any further disclosure of this information unless further disclosure is expressly permitted by the written consent of the person to whom it pertains or is authorized by law. A general authorization for the release of medical or other information is not sufficient for this purpose. Hospital accepts no responsibility if the information is made available to any other person, INCLUDING THE PATIENT. Interpretation Summary * Name: ZAK EDMONDSON Study Date: 09/16/2017 10:40 AM BP: 106/69 mmHg * Patient Location: C.2T\S\E215\S\1 HR: 85 * : 1950 (M/d/yyyy) Gender: Male Height: 68 in * Age: 67 yrs Ethnicity: [place] Weight: 189 lb * Ordering Physician: Manish Quiros * Referring Physician: Self, Referred * Performed By: Roro Wilson RDCS * * Reason For Study: Elevated troponin * BSA: 2.0 m2 * -- Conclusions -- * Normal LV chamber size and wall thickness. * Normal LV systolic function, EF 55-60%. * No segmental left ventricular wall motion abnormalities are noted. * Grade I diastolic dysfunction. * Aortic valve sclerosis mild, without significant aortic valvular stenosis. * No significant valvular pathology. Procedure Details * A complete two-dimensional transthoracic echocardiogram was performed (2D, M-mode, Doppler and color flow Doppler). Left Ventricle * The left ventricle is normal in size. * There is normal left ventricular wall thickness. * Ejection Fraction = 55-60%. * Left ventricular systolic function is normal. * No segmental left ventricular wall motion abnormalities are noted. * The left ventricular wall motion is normal. Right Ventricle * The right ventricular cavity size is normal (basal dimension <4.2 cm in right ventricular apical 4-chamber view). * A moderator band is seen in the right ventricle. * The right ventricular systolic function is normal as assessed by tricuspid annular plane systolic excursion (TAPSE) (normal >1.5 cm). Atria * The left atrial size is normal. * Right atrial size is normal. * No ASD detected; PFO is not assessed. Mitral Valve * The mitral valve is normal in structure and function. Tricuspid Valve * The tricuspid valve is normal in structure and function. Aortic Valve * The aortic valve is trileaflet. * Aortic valve sclerosis mild, without significant aortic valvular stenosis. * There is no significant aortic regurgitation. Pulmonic Valve * The pulmonary valve is not well seen, but the Doppler examination is normal without significant regurgitation or stenosis. Great Vessels * The aortic root and proximal ascending aorta are normal sized. Pericardium/Pleural * There is no pericardial effusion. Left Ventricular Diastolic Function * Grade I diastolic dysfunction, (abnormal relaxation pattern). MMode 2D Measurements and Calculations IVSd 0.95 cm LVIDd 4.8 cm LVIDs 3.7 cm LVPWd 1.1 cm IVS/LVPW 0.86 FS 23.5 % EDV(Teich) 106.4 ml ESV(Teich) 56.5 ml EF(Teich) 46.9 % EDV(cubed) 109.1 ml ESV(cubed) 48.9 ml EF(cubed) 55.2 % LV mass(C)d 175.4 grams LV mass(C)dI 87.9 grams/m\S\2 SV(Teich) 49.9 ml SI(Teich) 25.0 ml/m\S\2 SV(cubed) 60.2 ml SI(cubed) 30.2 ml/m\S\2 Ao root diam 2.8 cm Ao root area 6.3 cm\S\2 ACS 1.7 cm LA dimension 3.5 cm asc Aorta Diam 2.3 cm LA/Ao 1.2 LVOT diam 2.0 cm LVOT area 3.1 cm\S\2 LVAd ap4 26.5 cm\S\2 LVLd ap4 7.4 cm EDV(MOD-sp4) 79.6 ml EDV(sp4-el) 80.1 ml LVAs ap4 17.6 cm\S\2 LVLs ap4 6.3 cm ESV(MOD-sp4) 42.2 ml ESV(sp4-el) 41.4 ml EF(MOD-sp4) 46.9 % EF(sp4-el) 48.4 % LVAd ap2 23.2 cm\S\2 LVLd ap2 6.2 cm EDV(MOD-sp2) 72.8 ml EDV(sp2-el) 74.3 ml LVAs ap2 16.3 cm\S\2 LVLs ap2 5.5 cm ESV(MOD-sp2) 41.0 ml ESV(sp2-el) 40.8 ml EF(MOD-sp2) 43.7 % EF(sp2-el) 45.1 % LVLd %diff -20.47 % EDV(MOD-bp) 84.9 ml LVLs %diff -14.70 % ESV(MOD-bp) 44.8 ml EF(MOD-bp) 47.2 % SV(MOD-sp4) 37.3 ml SI(MOD-sp4) 18.7 ml/m\S\2 SV(MOD-sp2) 31.8 ml SI(MOD-sp2) 16.0 ml/m\S\2 SV(MOD-bp) 40.1 ml SI(MOD-bp) 20.1 ml/m\S\2 SV(sp4-el) 38.8 ml SI(sp4-el) 19.4 ml/m\S\2 SV(sp2-el) 33.5 ml SI(sp2-el) 16.8 ml/m\S\2 Doppler Measurements and Calculations MV E max sarah 69.4 cm/sec MV A max sarah 67.9 cm/sec MV E/A 1.0 MV dec time 0.16 sec Ao V2 max 119.4 cm/sec Ao max PG 5.7 mmHg Ao max PG (full) 3.5 mmHg ANDREA(V,A) 1.9 cm\S\2 ANDREA(V,D) 1.9 cm\S\2 LV V1 max PG 2.2 mmHg LV V1 max 74.7 cm/sec PA V2 max 99.1 cm/sec PA max PG 3.9 mmHg PA acc slope 393.1 cm/sec\S\2 PA acc time 0.14 sec TR max sarah 226.7 cm/sec PA pr(Accel) 14.0 mmHg
[2017-09-16] MEDS: CEFTRIAXONE SOD INJ 1 GM in DEXTROSE 5% ADD-VANTAGE 50ML 50 ML IV SCH (19:56)
[2017-09-16] MEDS: ENOXAPARIN 40 MG/0.4 ML SYR SC SCH (19:58)
[2017-09-16] MEDS: TEMAZEPAM 15 MG CAP PO PRN (23:37)
[2017-09-17] VITALS (7 sets, daily range): BP systolic 141–157; BP diastolic 87–95; PULSE 71–96; TEMP 36.2–37.5; O2SAT 93–97
[2017-09-17] MEDS: SODIUM CHLORIDE 0.9% 1000ML 1,000 ML IV SCH (04:34)
[2017-09-17 06:59] LABS: BASO % 0.2 %; BASO ABS # 0.01 K/uL (0-0.2); EOS % 0.6 %; EOS ABS # 0.03 K/uL (0-0.5); HEMATOCRIT 40.6 % (42-52); HEMOGLOBIN 13.9 g/dL (14.0-18.0); LYMPH % 27.3 %; LYMPH ABS # 1.45 K/uL (1.2-3.4); MEAN CELL VOLUME 91.4 fL (80-100); MEAN CORPUSCULAR HEMOGLOBIN 31.3 pg (25-34); MEAN CORPUSCULAR HGB CONC 34.2 g/dl (32-36); MEAN PLATELET VOLUME 10.3 fL (7.4-10.4); MONO % 12.8 %; MONO ABS # 0.68 K/uL (0.11-0.59); NEUT % 59.1 %; NEUT ABS # 3.15 K/uL (1.4-6.5); PLATELET COUNT 163 K/uL (130-400); RED CELL DISTRIBUTION WIDTH CV 14.3 % (11.5-14.5); RED CELL DISTRIBUTION WIDTH SD 48.6 fL (36.4-46.3); WHITE BLOOD COUNT 5.32 K/uL (4.8-10.8)
[2017-09-17 07:30] LABS: CALCIUM 7.6 mg/dl (8.5-10.1); CREATININE 1.04 mg/dl (0.60-1.40); POTASSIUM 3.9 mmol/L (3.5-5.1)
[2017-09-17] MEDS: ALBUT/IPRATROP 3MG/0.5MG NEB 3 ML VIAL INH SCH ×4 (07:32→19:03)
[2017-09-17] MEDS: RISPERIDONE 2 MG TAB PO SCH ×2 (08:05→13:31)
[2017-09-17] MEDS: FAMOTIDINE 20 MG TAB PO SCH ×2 (08:05→19:34)
[2017-09-17] MEDS: OSELTAMIVIR PHOSPHATE 75 MG CAP PO SCH ×2 (08:05→20:50)
[2017-09-17] MEDS: AZITHROMYCIN 250 MG TAB PO SCH (08:06)
[2017-09-17] MEDS: LORAZEPAM 0.5 MG TAB PO PRN ×2 (09:16→13:31)
--- NOTE | 2017-09-17 10:42 | Progress Note ---
Internal Med Progress Note Date of Service: Sep 17, 2017. Provider Documentation: SUBJECTIVE: Seen and examined at bedside Doing well this morning Less cough and SOB Denies chest pain, nausea, dizziness, abd pain No suicidal thoughts or hallucinations Saturating well on room air Eager to get discharged OBJECTIVE: Vital Signs-as noted below General Appearance: WD/WN, no apparent distress Head: normocephalic, atraumatic Eyes: normal inspection, PERRL, EOMI ENT: normal ENT inspection, hearing grossly normal Neck: supple, trachea midline Respiratory/Chest: Decreased breath sounds, scattered wheezing Cardiovascular: S1, S2, No murmur Abdomen/GI: normal bowel sounds, non tender, soft Back: normal inspection Extremities/Musculoskelatal: normal inspection, no pedal edema Neurologic/Psych: AAOX3, grossly no focal deficits Skin: normal color, warm/dry Lab data as noted below. ASSESSMENT & PLAN: Influenza Meets SIRS Criteria Continue Tamiflu day # 3 Oxygen PRN Continue empiric Abx for possible bronchitis CTA:suggestive of advanced emphysema, No PE, trace pleural effusion and reactive airway disease Lactate, Procalcitonin levels normal DC IV fluids Blood Cultures: No growth to date Continue Nebs NSVT: ECHO:No segmental left ventricular wall motion abnormalities Monitor electrolytes Patient refuses to have Stress test or any other cardiac work up Also refuses to be started on any cardiac medications Hyponatremia/Hypomagnesemia: Likely secondary to dehydration Resolved Replace electrolytes PRN DC IV fluids Monitor Mild Troponin Elevation: Likely secondary to Tachycardia Denies chest Pain EKG: Sinus Tachycardia with PACs Troponin trending down ECHO:No segmental left ventricular wall motion abnormalities Advanced COPD: Ongoing Tobacco Use: Refuses Nicotine patch Continue Nebs Continue Prednisone 20mg daily States was on inhalers at home before which did not help Would like to follow up with PCP for further management Paranoid Schizophrenia: Dementia: Continue home meds Appreciate Psychiatry Input Leukemia per records: Patient unaware of status. Currently not on meds per records DVT Px: SQ Lovenox Code Status: Full Code Disposition: real estate services coordinator consulted PROCEDURES: ECHO: Normal LV chamber size and wall thickness. * Normal LV systolic function, EF 55-60%. * No segmental left ventricular wall motion abnormalities are noted. * Grade I diastolic dysfunction. * Aortic valve sclerosis mild, without significant aortic valvular stenosis. * No significant valvular pathology. Vital Signs: Date Time Temp Pulse Resp B/P (MAP) Pulse Ox O2 Delivery O2 Flow Rate FiO2 09/17/17 08:00 Room Air 09/17/17 07:51 37.0 96 20 141/87 (105) 94 Room Air 09/17/17 07:32 73 18 97 Room Air 09/17/17 04:00 Room Air 09/17/17 03:31 37.0 87 18 143/87 (105) 93 09/17/17 00:00 Room Air 09/16/17 23:46 36.9 83 16 142/89 (106) 95 09/16/17 20:21 36.7 98 18 131/74 (93) 92 Room Air 09/16/17 20:00 Room Air 09/16/17 19:17 99 18 95 Room Air 09/16/17 16:27 36.5 98 18 117/69 (85) 90 Room Air 09/16/17 16:00 Room Air 09/16/17 15:33 81 18 93 Room Air 09/16/17 12:14 36.8 86 18 128/69 (88) 95 09/16/17 12:00 Room Air 09/16/17 11:09 86 18 95 Room Air Lab Results: Results Past 24 Hours Test 09/17/17 06:47 Range/Units White Blood Count 5.32 4.8-10.8 K/uL Red Blood Count 4.44 4.7-6.1 M/uL Hemoglobin 13.9 14.0-18.0 g/dL Hematocrit 40.6 42-52 % Mean Corpuscular Volume 91.4 80-100 fL Mean Corpuscular Hemoglobin 31.3 25-34 pg Mean Corpuscular Hemoglobin Concent 34.2 32-36 g/dl Platelet Count 163 130-400 K/uL Mean Platelet Volume 10.3 7.4-10.4 fL Neutrophils (%) (Auto) 59.1 % Lymphocytes (%) (Auto) 27.3 % Monocytes (%) (Auto) 12.8 % Eosinophils (%) (Auto) 0.6 % Basophils (%) (Auto) 0.2 % Neutrophils # (Auto) 3.15 1.4-6.5 K/uL Lymphocytes # (Auto) 1.45 1.2-3.4 K/uL Monocytes # (Auto) 0.68 0.11-0.59 K/uL Eosinophils # (Auto) 0.03 0-0.5 K/uL Basophils # (Auto) 0.01 0-0.2 K/uL RDW Standard Deviation 48.6 36.4-46.3 fL RDW Coefficient of Variation 14.3 11.5-14.5 % Immature Granulocyte % (Auto) 0.0 % Immature Granulocyte # (Auto) 0.00 0.00-0.02 K/uL Sodium Level 138 136-145 mmol/L Potassium Level 3.9 3.5-5.1 mmol/L Chloride Level 105 98-107 mmol/L Carbon Dioxide Level 25 21-32 mmol/L Anion Gap 8.0 3-11 mmol/L Blood Urea Nitrogen 17 7-18 mg/dl Creatinine 1.04 0.60-1.40 mg/dl Est Creatinine Clear Calc Drug Dose 73.3 ml/min Estimated GFR () 86.3 Estimated GFR (Non- 74.5 BUN/Creatinine Ratio 16.2 10-20 Random Glucose 136 70-99 mg/dl Calcium Level 7.6 8.5-10.1 mg/dl Magnesium Level 2.0 1.8-2.4 mg/dl
[2017-09-17] MEDS: CEFTRIAXONE SOD INJ 1 GM in DEXTROSE 5% ADD-VANTAGE 50ML 50 ML IV SCH (20:00)
[2017-09-17] MEDS: ENOXAPARIN 40 MG/0.4 ML SYR SC SCH (20:30)
[2017-09-17] MEDS: TEMAZEPAM 15 MG CAP PO PRN (20:55)
[2017-09-18] VITALS (10 sets, daily range): BP systolic 128–159; BP diastolic 76–95; PULSE 54–89; TEMP 36.5–37.1; O2SAT 91–96
[2017-09-18] MEDS: ALBUT/IPRATROP 3MG/0.5MG NEB 3 ML VIAL INH SCH ×3 (07:01→16:00)
[2017-09-18 07:38] LABS: CREATININE 0.93 mg/dl (0.60-1.40); POTASSIUM 4.2 mmol/L (3.5-5.1)
[2017-09-18] MEDS: FAMOTIDINE 20 MG TAB PO SCH ×2 (08:02→20:42)
[2017-09-18] MEDS: OSELTAMIVIR PHOSPHATE 75 MG CAP PO SCH ×2 (08:02→20:42)
[2017-09-18] MEDS: AZITHROMYCIN 250 MG TAB PO SCH (08:03)
[2017-09-18] MEDS: RISPERIDONE 2 MG TAB PO SCH ×2 (08:03→13:16)
--- NOTE | 2017-09-18 08:39 | Clinical Documentation Query ---
CLINICAL DOCUMENTATION QUERY 67 year old male who presents to the Emergency Room with complaints of SOB and fever. In your clinical opinion is this patient being managed for: ( ) COPD exacerbation with acute bronchitis with influenza ( ) Not Agree ( X ) Other explanation of clinical findings (Please Explain): Acute Influenza, Chronic COPD, Possible bronchitis ( ) Unable to determine (Please Define) ( ) Need to Discuss The medical record reflects the following clinical findings, treatment, and risk factors. Clinical Indicators: Fever 38.6, tachycardia 131, SOB 24, + decreased breath sounds, + wheezing Treatment: Azithromycin, Prednisone, Tamiflu, Duonebs, and O2 Risk Factors: Age, COPD, bronchitis, and influenza Please clarify and document your clinical opinion in the progress notes and discharge summary. Terms such as "probable", "suspected", "likely", "questionable", "possible", or "still to be ruled out" are acceptable. IF IN AGREEMENT, YOU MUST DOCUMENT ABOVE DIAGNOSTIC STATEMENT IN DAILY PROGRESS NOTES AND DISCHARGE SUMMARY. This document is not part of the patient's record. Thank You, Karlo Ceballos, RN [phone]
--- NOTE | 2017-09-18 09:35 | Progress Note ---
Internal Med Progress Note Date of Service: Sep 18, 2017. Provider Documentation: SUBJECTIVE: Seen and examined at bedside Feels well, eager to get discharged Minimal cough Denies chest pain, SOB, nausea, dizziness, abd pain No suicidal thoughts or hallucinations Saturating well on room air OBJECTIVE: Vital Signs-as noted below General Appearance: WD/WN, no apparent distress Head: normocephalic, atraumatic Eyes: normal inspection, PERRL, EOMI ENT: normal ENT inspection, hearing grossly normal Neck: supple, trachea midline Respiratory/Chest: Decreased breath sounds, CTA Cardiovascular: S1, S2, No murmur Abdomen/GI: normal bowel sounds, non tender, soft Back: normal inspection Extremities/Musculoskelatal: normal inspection, no pedal edema Neurologic/Psych: AAOX3, grossly no focal deficits Skin: normal color, warm/dry Lab data as noted below. ASSESSMENT & PLAN: Influenza Meets SIRS Criteria Continue Tamiflu day # 4 Oxygen PRN Continue empiric Abx for possible bronchitis CTA:suggestive of advanced emphysema, No PE, trace pleural effusion and reactive airway disease Lactate, Procalcitonin levels normal DC IV fluids Blood Cultures: No growth to date Continue Nebs NSVT: ECHO:No segmental left ventricular wall motion abnormalities, No significant valvular pathology Monitor electrolytes Patient refuses to have Stress test or any other cardiac work up Also refuses to be started on any cardiac medications Hyponatremia/Hypomagnesemia: Likely secondary to dehydration Resolved Replace electrolytes PRN DC IV fluids Monitor Mild Troponin Elevation: Likely secondary to Tachycardia Denies chest Pain EKG: Sinus Tachycardia with PACs Troponin trending down ECHO:No segmental left ventricular wall motion abnormalities Advanced COPD: Ongoing Tobacco Use: Refuses Nicotine patch Continue Nebs Continue Prednisone 20mg daily States was on inhalers at home before which did not help Would like to follow up with PCP for further management Paranoid Schizophrenia: Dementia: Continue home meds Appreciate Psychiatry Input Leukemia per records: Patient unaware of status. Currently not on meds per records DVT Px: SQ Lovenox Code Status: Full Code Disposition: nursing surgical services director consulted Plan to discharge home today but could not be discharged as patient is homeless and placement could not be arranged till tomorrow Follow up with on 09/20/17 at 12:45pm Complete the anabiotic course as prescribed Consider to get stress test as outpatient as recommended Seek immediate medical attention if your symptoms reoccur or worsen PROCEDURES: ECHO: Normal LV chamber size and wall thickness. * Normal LV systolic function, EF 55-60%. * No segmental left ventricular wall motion abnormalities are noted. * Grade I diastolic dysfunction. * Aortic valve sclerosis mild, without significant aortic valvular stenosis. * No significant valvular pathology. Vital Signs: Date Time Temp Pulse Resp B/P (MAP) Pulse Ox O2 Delivery O2 Flow Rate FiO2 09/18/17 09:53 36.5 69 20 95 Room Air Nasal Cannula 09/18/17 08:00 Room Air 09/18/17 07:05 36.5 69 20 147/95 (112) 95 Room Air 09/18/17 07:02 64 16 96 Room Air 09/18/17 04:00 Room Air 09/18/17 03:41 37.1 72 16 128/81 (97) 95 09/18/17 00:13 36.7 72 18 136/77 (96) 95 09/18/17 00:00 Room Air 09/17/17 20:16 36.2 71 18 157/94 (115) 96 Room Air 09/17/17 20:00 Room Air 09/17/17 16:16 36.3 87 18 151/90 (110) 93 Room Air 09/17/17 16:00 Room Air 09/17/17 14:45 95 18 96 Room Air 09/17/17 12:00 Room Air 09/17/17 11:28 37.5 94 20 153/95 (114) 95 Room Air Lab Results: Results Past 24 Hours Test 09/18/17 06:31 Range/Units Sodium Level 135 136-145 mmol/L Potassium Level 4.2 3.5-5.1 mmol/L Chloride Level 104 98-107 mmol/L Carbon Dioxide Level 25 21-32 mmol/L Anion Gap 6.0 3-11 mmol/L Blood Urea Nitrogen 14 7-18 mg/dl Creatinine 0.93 0.60-1.40 mg/dl Est Creatinine Clear Calc Drug Dose 75.6 ml/min Estimated GFR () 98.8 Estimated GFR (Non- 85.2 BUN/Creatinine Ratio 15.6 10-20 Random Glucose 81 70-99 mg/dl Calcium Level 8.0 8.5-10.1 mg/dl Magnesium Level 1.8 1.8-2.4 mg/dl
[2017-09-18] MEDS ORDERED: VNTHFA/IN INH (09:47)
[2017-09-18] MEDS ORDERED: TMF75 PO (09:47)
[2017-09-18] MEDS ORDERED: ADVIN25050 INH (09:47)
[2017-09-18] MEDS ORDERED: AZIT-57 PO (09:47)
[2017-09-18] MEDS ORDERED: FAMO1TAB47 PO (09:47)
--- NOTE | 2017-09-18 09:48 | Discharge Instructions ---
Discharge Instructions Date of Service Sep 18, 2017. Admission Reason for Admission: Influenza Discharge Discharge Diagnosis / Problem: Influenza Discharge Goals Goal(s): Decrease discomfort, Improve function Activity Recommendations Activity Limitations: resume your previous activity Exercise/Sports Limitations: as tolerated . Instructions / Follow-Up Instructions / Follow-Up Follow up with on 09/20/17 at 12:45pm Complete the antibiotic course as prescribed Consider to get stress test as outpatient as recommended Seek immediate medical attention if your symptoms reoccur or worsen Current Hospital Diet Patient's current hospital diet: AHA Diet (Heart Healthy) Discharge Diet Recommended Diet: AHA Diet (Heart Healthy) Pending Studies Studies pending at discharge: no Medical Emergencies . Who to Call and When: Medical Emergencies: If at any time you feel your situation is an emergency, please call 911 immediately. . Non-Emergent Contact Non-Emergency issues call your: Primary Care Provider Call Non-Emergent contact if: you have a fever, your pain is not controlled, your pain is worsening, your pain is unusual for you, your pain is concerning you, you have any medication questions Seek immediate medical attention if your symptoms reoccur or worsen . . "Provider Documentation" section prepared by Manish Quiros. . VTE Core Measure Inpt VTE Proph given/why not?: Enoxaparin (Lovenox)SQ
--- NOTE | 2017-09-18 09:49 | Discharge Summary ---
Discharge Summary Date of Service Sep 18, 2017. Discharge Summary Admission Date: Sep 15, 2017 at 18:00 Discharge Date: Sep 18, 2017 Discharge Disposition: Home Admission Information Physical Exam (per Admitting): General Appearance: WD/WN, no apparent distress Head: normocephalic, atraumatic Eyes: normal inspection, PERRL, EOMI ENT: normal ENT inspection, hearing grossly normal Neck: supple, trachea midline Respiratory/Chest: chest non-tender, no respiratory distress, no accessory muscle use, + decreased breath sounds, + wheezing (Scattered) Cardiovascular: regular rate, rhythm, no edema, no murmur, + tachycardia Abdomen/GI: normal bowel sounds, non tender, soft Back: normal inspection Extremities/Musculoskelatal: normal inspection, no pedal edema Neurologic/Psych: artificial glass eye maker II-XII nml as tested, no motor/sensory deficits, alert , normal mood/affect, oriented x 3 Skin: normal color, warm/dry Hospital Course
[2017-09-18] MEDS ORDERED: ALUMINUM/MAGNESIUM/SIMETH (MAALOX MAX) 30 ML UDC PO ONE (10:00)
[2017-09-18] MEDS ORDERED: ALUMINUM/MAGNESIUM/SIMETH (MAALOX MAX) 30 ML UDC ONE (13:09)
[2017-09-18] MEDS: FLUTICASONE/SALMETEROL 250/50 (ADVAIR) 14 PUFF/1 INHALER INH SCH (20:00)
[2017-09-18] MEDS ORDERED: ALBUT/IPRATROP 3MG/0.5MG NEB 3 ML VIAL INH PRN (20:00)
[2017-09-18] MEDS: CEFTRIAXONE SOD INJ 1 GM in DEXTROSE 5% ADD-VANTAGE 50ML 50 ML IV SCH (20:00)
[2017-09-18] MEDS: ENOXAPARIN 40 MG/0.4 ML SYR SC SCH (20:41)
[2017-09-18] MEDS: TEMAZEPAM 15 MG CAP PO PRN (21:20)
[2017-09-19 07:34] VITALS: BP 151/93; PULSE 71; TEMP 36.7; O2SAT 91
[2017-09-19] MEDS: FAMOTIDINE 20 MG TAB PO SCH (08:42)
[2017-09-19] MEDS: AZITHROMYCIN 250 MG TAB PO SCH (08:42)
[2017-09-19] MEDS: FLUTICASONE/SALMETEROL 250/50 (ADVAIR) 14 PUFF/1 INHALER INH SCH (08:47)
[2017-09-19] MEDS ORDERED: TMF75 PO (09:36)
--- NOTE | 2017-09-19 09:36 | Progress Note ---
Internal Med Progress Note Date of Service: Sep 19, 2017. Provider Documentation: SUBJECTIVE: Seen and examined at bedside Doing well this morning Denies chest pain, cough, SOB, nausea, dizziness, abd pain No suicidal thoughts or hallucinations Saturating well on room air Eager to get discharged OBJECTIVE: Vital Signs-as noted below General Appearance: WD/WN, no apparent distress Head: normocephalic, atraumatic Eyes: normal inspection, PERRL, EOMI ENT: normal ENT inspection, hearing grossly normal Neck: supple, trachea midline Respiratory/Chest: Decreased breath sounds, CTA Cardiovascular: S1, S2, No murmur Abdomen/GI: normal bowel sounds, non tender, soft Back: normal inspection Extremities/Musculoskelatal: normal inspection, no pedal edema Neurologic/Psych: AAOX3, grossly no focal deficits Skin: normal color, warm/dry Lab data as noted below. ASSESSMENT & PLAN: Influenza Meets SIRS Criteria Continue Tamiflu day # 5 Oxygen PRN Continue empiric Abx for possible bronchitis CTA:suggestive of advanced emphysema, No PE, trace pleural effusion and reactive airway disease Lactate, Procalcitonin levels normal IV fluids discontinued Blood Cultures: No growth to date Continue Nebs NSVT: ECHO:No segmental left ventricular wall motion abnormalities, No significant valvular pathology Monitor electrolytes Patient refuses to have Stress test or any other cardiac work up Also refuses to be started on any cardiac medications Hyponatremia/Hypomagnesemia: Likely secondary to dehydration Resolved Replace electrolytes PRN DC IV fluids Monitor Mild Troponin Elevation: Likely secondary to Tachycardia Denies chest Pain EKG: Sinus Tachycardia with PACs Troponin trending down ECHO:No segmental left ventricular wall motion abnormalities Advanced COPD: Ongoing Tobacco Use: Refuses Nicotine patch Continue Nebs Continue Prednisone 20mg daily States was on inhalers at home before which did not help Would like to follow up with PCP for further management Paranoid Schizophrenia: Dementia: Continue home meds Appreciate Psychiatry Input Leukemia per records: Patient unaware of status. Currently not on meds per records DVT Px: SQ Lovenox Code Status: Full Code Disposition: equipment services associate consulted Plan to discharge home today Follow up with on 09/20/17 at 12:45pm Complete the anabiotic course as prescribed Consider to get stress test as outpatient as recommended Seek immediate medical attention if your symptoms reoccur or worsen PROCEDURES: ECHO: Normal LV chamber size and wall thickness. * Normal LV systolic function, EF 55-60%. * No segmental left ventricular wall motion abnormalities are noted. * Grade I diastolic dysfunction. * Aortic valve sclerosis mild, without significant aortic valvular stenosis. * No significant valvular pathology. Vital Signs: Date Time Temp Pulse Resp B/P (MAP) Pulse Ox O2 Delivery O2 Flow Rate FiO2 09/19/17 07:34 36.7 71 16 151/93 (112) 91 Room Air 09/19/17 00:00 Room Air 09/18/17 23:36 36.8 54 18 132/79 (96) 94 Room Air 09/18/17 16:00 36.5 89 18 155/84 (107) 95 Room Air 09/18/17 16:00 Room Air 09/18/17 13:32 36.6 82 16 155/89 (111) 96 Room Air 09/18/17 11:48 37.1 72 18 95 09/18/17 11:35 Room Air 09/18/17 11:02 36.8 66 18 159/76 (103) 93 09/18/17 09:53 36.5 69 20 95 Room Air Nasal Cannula
[2017-09-19] MEDS: OSELTAMIVIR PHOSPHATE 75 MG CAP PO SCH (09:38)
[2017-09-19] MEDS: RISPERIDONE 2 MG TAB PO SCH (09:39)
--- NOTE | 2017-09-19 09:39 | Discharge Summary ---
Discharge Summary Date of Service Sep 19, 2017. Discharge Summary Admission Date: Sep 15, 2017 at 18:00 Discharge Date: Sep 19, 2017 Discharge Disposition: Home Principal Diagnosis: Influenza, NSVT Secondary Diagnoses/Problems: COPD, Paranoid Schizophrenia Procedures: CTA: 1. Motion compromised examination. 2. There is no evidence of pulmonary embolus in the main, lobar, or proximal segmental pulmonary arteries. 3. Advanced emphysema. 4. Trace pleural effusions are identified. No airspace consolidation is seen typical for pneumonia. Mild diffuse peribronchial thickening suggests reactive airway disease. Clinical correlation will be required. 5. Additional findings as above. CXR: Chronic change. No acute process. Consultations: None Pending Studies/Follow-Up: Follow up with on 09/20/17 at 12:45pm Complete the antibiotic course as prescribed Consider to get stress test as outpatient as recommended Seek immediate medical attention if your symptoms reoccur or worsen Medication Reconciliation New Medications: Albuterol Hfa (Ventolin Hfa) 200 Puffs/43205 Mcg Aers 2 PUFFS INH Q6H PRN for shortness of breath/wheezing, #1 INHALER 2 Refills Azithromycin (Azithromycin) 250 Mg Tab 250 MG PO QAM for 4 Days, #4 TAB Famotidine (Famotidine) 20 Mg Tab 20 MG PO BID for 15 Days, #30 TAB Fluticasone Prop/Salmeterol (Advair Diskus 250-50 Mcg/Dose) 14 Puff/1 Inhaler Aerp 1 PUFF INH BID for 30 Days, #1 INHALER 1 Refill Oseltamivir Phosphate (Tamiflu) 75 Mg Cap 75 MG PO BID for 1 Day, #2 CAP Continued Medications: Lorazepam (Lorazepam) 1 Mg Tab 1 MG PO BID PRN for Anxiety Risperidone (Risperdal) 4 Mg Tab 4 MG PO BID AM AND 1 PM Temazepam (Restoril) 30 Mg Cap 30 MG PO HS Admission Information HPI (per Admitting provider): Patient is a 67 yr male with Paranoid Schizophrenia, Dementia, Leukemia per records, Current Tobacco use presents with history of fever, weakness, non productive cough, dizziness and has been having balance issues since last 2-3 weeks. Patient is a poor historian and history id limited secondary to Schizophrenia, dementia and most of the history is obtained on reviewing the records. Patient is reports he is having balance issues since this morning and doesn't feel well. He admits to smoking on a daily basis. He is positive for Influenza and CT chest is suggestive of advanced emphysema, No PE, trace pleural effusion and reactive airway disease. Patient denies any chest pain, SOB , palpitations, fall, head trauma, change in vision, nausea, vomiting, abdominal pain, diarrhea, dysuria. He also denies any suicidal/Homicidal thoughts. Physical Exam (per Admitting): General Appearance: WD/WN, no apparent distress Head: normocephalic, atraumatic Eyes: normal inspection, PERRL, EOMI ENT: normal ENT inspection, hearing grossly normal Neck: supple, trachea midline Respiratory/Chest: chest non-tender, no respiratory distress, no accessory muscle use, + decreased breath sounds, + wheezing (Scattered) Cardiovascular: regular rate, rhythm, no edema, no murmur, + tachycardia Abdomen/GI: normal bowel sounds, non tender, soft Back: normal inspection Extremities/Musculoskelatal: normal inspection, no pedal edema Neurologic/Psych: mat man II-XII nml as tested, no motor/sensory deficits, alert , normal mood/affect, oriented x 3 Skin: normal color, warm/dry Hospital Course Influenza Meets SIRS Criteria Continue Tamiflu day # 5 Oxygen PRN Continue empiric Abx for possible bronchitis CTA:suggestive of advanced emphysema, No PE, trace pleural effusion and reactive airway disease Lactate, Procalcitonin levels normal IV fluids discontinued Blood Cultures: No growth to date Continue Nebs NSVT: ECHO:No segmental left ventricular wall motion abnormalities, No significant valvular pathology Monitor electrolytes Patient refuses to have Stress test or any other cardiac work up Also refuses to be started on any cardiac medications Hyponatremia/Hypomagnesemia: Likely secondary to dehydration Resolved Replace electrolytes PRN DC IV fluids Monitor Mild Troponin Elevation: Likely secondary to Tachycardia Denies chest Pain EKG: Sinus Tachycardia with PACs Troponin trending down ECHO:No segmental left ventricular wall motion abnormalities Advanced COPD: Ongoing Tobacco Use: Refuses Nicotine patch Continue Nebs Continue Prednisone 20mg daily States was on inhalers at home before which did not help Would like to follow up with PCP for further management Paranoid Schizophrenia: Dementia: Continue home meds Appreciate Psychiatry Input Leukemia per records: Patient unaware of status. Currently not on meds per records DVT Px: SQ Lovenox Code Status: Full Code Disposition: security services manager consulted Plan to discharge home today Follow up with on 09/20/17 at 12:45pm Complete the anabiotic course as prescribed Consider to get stress test as outpatient as recommended Seek immediate medical attention if your symptoms reoccur or worsen PROCEDURES: ECHO: Normal LV chamber size and wall thickness. * Normal LV systolic function, EF 55-60%. * No segmental left ventricular wall motion abnormalities are noted. * Grade I diastolic dysfunction. * Aortic valve sclerosis mild, without significant aortic valvular stenosis. * No significant valvular pathology. Total time spent on discharge = 32 minutes This includes examination of the patient, discharge planning, medication reconciliation, and communication with other providers. Discharge Instructions Discharge Instructions Date of Service Sep 18, 2017. Admission Reason for Admission: Influenza Discharge Discharge Diagnosis / Problem: Influenza Discharge Goals Goal(s): Decrease discomfort, Improve function Activity Recommendations Activity Limitations: resume your previous activity Exercise/Sports Limitations: as tolerated . Instructions / Follow-Up Instructions / Follow-Up Follow up with on 09/20/17 at 12:45pm Complete the antibiotic course as prescribed Consider to get stress test as outpatient as recommended Seek immediate medical attention if your symptoms reoccur or worsen Current Hospital Diet Patient's current hospital diet: AHA Diet (Heart Healthy) Discharge Diet Recommended Diet: AHA Diet (Heart Healthy) Pending Studies Studies pending at discharge: no Medical Emergencies . Who to Call and When: Medical Emergencies: If at any time you feel your situation is an emergency, please call 911 immediately. . Non-Emergent Contact Non-Emergency issues call your: Primary Care Provider Call Non-Emergent contact if: you have a fever, your pain is not controlled, your pain is worsening, your pain is unusual for you, your pain is concerning you, you have any medication questions Seek immediate medical attention if your symptoms reoccur or worsen . . "Provider Documentation" section prepared by Manish Quiros. . VTE Core Measure Inpt VTE Proph given/why not?: Enoxaparin (Lovenox)SQ <Electronically signed by Manish Quiros MD> Signed: 09/18/17 0948 Signed: The status of this report is Signed * If report status is Draft, the document has not been finalized by the responsible provider.
== END 2017-09-19 10:43 | disposition home or self-care (01) | DRG 153 ==
LOC: EDBD 13:48 → C.EDA 13:49 → C.2T 18:00 → ENRESERV 19:07 → C.4E 09-18 13:38
PROVIDERS: ADMIT Internal Medicine; ATTEND Internal Medicine
DX: J11.1 Influenza due to unidentified influenza virus with other respiratory manifestations (principal); J44.0 Chronic obstructive pulmonary disease with (acute) lower respiratory infection; I47.1 Supraventricular tachycardia; E87.1 Hypo-osmolality and hyponatremia; F20.0 Paranoid schizophrenia; E83.42 Hypomagnesemia; E86.0 Dehydration; R74.8 Abnormal levels of other serum enzymes; F03.90 Unspecified dementia, unspecified severity, without behavioral disturbance, psychotic disturbance, mood disturbance, and anxiety; F17.200 Nicotine dependence, unspecified, uncomplicated; Z53.29 Procedure and treatment not carried out because of patient's decision for other reasons; Z79.899 Other long term (current) drug therapy

== ENCOUNTER 2019-09-25 10:37 | Inpatient (IN) ==
[2019-09-25 11:38] LABS: Basophils # (auto) 0.04 K/uL (0-0.2); Basophils % (auto) 0.4 %; Eosinophils # (auto) 0.08 K/uL (0-0.5); Eosinophils % (auto) 0.7 %; Hematocrit (blood only) 46.1 % (42-52); Hemoglobin 15.5 g/dL (14.0-18.0); Immature Granulocytes # (auto) 0.05 K/uL (0.00-0.02); Immature Granulocytes % (auto) 0.5 %; Lymphocytes % (auto) 14.8 %; Mean Corpuscular Hemoglobin 30.3 pg (25-34); Mean Corpuscular Hgb Conc 33.6 g/dL (32-36); Mean Corpuscular Volume 90.2 fL (80-100); Mean Platelet Volume 10.4 fL (7.4-10.4); Monocytes # (auto) 0.76 K/uL (0.11-0.59); Neutrophils # (auto) 8.31 K/uL (1.4-6.5); Neutrophils % (auto) 76.6 %; Platelet Count 280 K/uL (130-400); RDW Coefficient of Variation 14.8 % (11.5-14.5); RDW Standard Deviation 48.9 fL (36.4-46.3); Red Blood Count 5.11 M/uL (4.7-6.1); White Blood Count 10.84 K/uL (4.8-10.8)
[2019-09-25 11:57] LABS: Albumin Level 4.1 gm/dl (3.4-5.0); BUN Creatinine Ratio 25.5 (10-20); Calcium 9.5 mg/dl (8.5-10.1); Creatinine Clr Calc Pharmacy 62.6 ml/min; Est GFR (Non-African American) 66.4
[2019-09-25 11:59] LABS: Acetaminophen < 2 ug/ml (10-30); Salicylate 1.7 mg/dl (2.8-20)
[2019-09-25 12:07] LABS: Albumin Globulin Ratio 1.3 (0.9-2); Bilirubin,Total 0.4 mg/dl (0.2-1); Globulin 3.1 gm/dl (2.5-4.0); Thyroid Stimulating Hormone 1.89 uIu/ml (0.300-4.500); Total Protein 7.2 gm/dl (6.4-8.2)
--- NOTE | 2019-09-25 15:37 | Emergency Department Note ---
Entered by Melinda Finch acting as a scribe for History of Present Illness General Chief complaint: Mental Health Evaluation Stated complaint: 302 Time Seen by Provider: 09/25/19 10:44 Source: patient and other (psych case checker) History of Present Illness Onset (ago): day(s) (today) Location: head Pain Consistency: + other (episode) Quality: + other (mental health) Associated symptoms: + other (urinating self, delirium); no cough and no loss of appetite The patient is a 69 year old male who presents to the Emergency Room for a mental health evaluation. Per psych case management, the patients psychiatrist called his case checker at [facility] to check on him as they didnt believe he was taking his medications, but they are unsure for how long. She states that when officer arrived to check on the patient, the patient was telling officers that the government was after him since none of his cards are w orking, but it was observed in his home that they are all broken. She states that he appeared to be urinating himself and was agitated. She reports that he kept telling officers do not dare do it to me again and he was referring to being 302 as was recently. The patient states that he stopped taking his medications as he thinks that they are dangerous chemicals that are making him sick and they make him pass out. He states that he feels like he is in some sort of delirium. He states that he feels like he is walking through a town in a [employer] movie and all the operations are going on, but he stands out in society with the way he moves. He states that the town is paranoid by him and he is paranoid how they will react. The patient denies a cough and loss of appetite. Home Medications Home Medications Medication Instructions Recorded Confirmed Type lorazepam 1 mg PO BID 09/17/18 07/04/19 History risperidone [Risperdal] 4 mg PO DAILY 09/17/18 07/04/19 History sertraline [Zoloft] 100 mg PO DAILY 09/18/18 07/04/19 History trazodone 1 tab PO HS 10/11/18 07/04/19 History Risperdal 2 mg PO DAILY 07/04/19 07/04/19 History Allergies Allergy/AdvReac Type Severity Reaction Status Date / Time No Known Allergies Allergy Unverified 07/04/19 13:45 Past Med/Surg History Social History Preferred Language: Irish Communication Ability: Effective Trimmer Helper Required: No Beliefs That Will Affect Care: None Current Living Situation: Alone Feels Safe at Home: Yes Smoking Status: Current every day smoker Tobacco Type: cigarettes ; Cigarettes Per Day: 2ppd ; Second Hand Exposure: No ; Hx Alcohol Use: No Hx Substance Use: No Review of Systems See HPI for pertinent positives & negatives. and A total of 10 systems reviewed and were otherwise negative Physical Exam Vital Signs Vital Signs - 24 hr 09/25/19 10:38 09/25/19 10:44 Temperature 37.0 C Temperature Source Oral Pulse Rate 48 L Pulse Rate [Finger] 76 Respiratory Rate 20 18 Respiratory Effort / Characteristics Non-Labored Spontaneous Non-Labored Respiratory Depth Normal Normal Blood Pressure 177/101 H Blood Pressure [Right Arm] 143/82 H Blood Pressure Mean 126 Blood Pressure Mean [Right Arm] 102 Pulse Oximetry 100 96 Oxygen Delivery Method Room Air Room Air Sepsis Recent Fever Within 48 Hours No Sepsis New/Unexplained Change in Mental Status No Sepsis Action Taken by Nursing No Action Required GENERAL: Awake, alert, with crossed arms on bed HENT: Normocephalic, atraumatic. EYES: Normal conjunctiva. Sclera non-icteric. RESPIRATORY: Normal respiratory effort. CARDIAC: Normal rate. Extremities warm and well perfused. MUSCULOSKELETAL: Atraumatic. Chest examination reveals no tenderness. NEURO: No slurred speech, ambulatory, no gross motor deficit noted. SKIN: Warm and dry. No jaundice noted. PSYCH: Tangential. Heightened affect. Denies SI. Making paranoid statements. Course Course 1109: The patient was evaluated in room A7. A complete history and physical exam was performed. 1800: The patient was signed out to Dr. Reeder at change of shift. Medical Decision Making Differential Diagnosis Differential diagnoses considered include mood disorder, infection, hypoglycemia, electrolyte abnormalities, cardiac sources, intracerebral event, toxicologic, neurologic, as well as others. Medical Records Attestation: I reviewed the patient's medical records. Home Medications Current Medication List: was personally reviewed by me Laboratory Data Attestation: I reviewed the patient's lab results. Result diagrams: 09/25/19 11:24 09/25/19 11:23 Lab Results 09/25/19 09/25/1920 Range/Units 11:23 11:23 11:24 WBC 10.84 H (4.8-10.8) K/uL RBC 5.11 (4.7-6.1) M/uL Hgb 15.5 (14.0-18.0) g/dL Hct 46.1 (42-52) % MCV 90.2 (80-100) fL MCH 30.3 (25-34) pg MCHC 33.6 (32-36) g/dL RDW Std Deviation 48.9 H (36.4-46.3) fL RDW Coeff of Demond 14.8 H (11.5-14.5) % Plt Count 280 (130-400) K/uL MPV 10.4 (7.4-10.4) fL Immature Gran % (Auto) 0.5 % Neut % (Auto) 76.6 % Lymph % (Auto) 14.8 % [place] % (Auto) 7.0 % Eos % (Auto) 0.7 % Baso % (Auto) 0.4 % Immature Gran # (Auto) 0.05 H (0.00-0.02) K/uL Neut # (Auto) 8.31 H (1.4-6.5) K/uL Lymph # (Auto) 1.60 (1.2-3.4) K/uL [place] # (Auto) 0.76 H (0.11-0.59) K/uL Eos # (Auto) 0.08 (0-0.5) K/uL Baso # (Auto) 0.04 (0-0.2) K/uL Sodium 141 (136-145) mmol/L Potassium 5.0 (3.5-5.1) mmol/L Chloride 110 H (98-107) mmol/L Carbon Dioxide 26 (21-32) mmol/L Anion Gap 5.0 (3-11) BUN 29 H (7-18) mg/dl Creatinine 1.13 (0.6-1.4) mg/dl Est Cr Clr Drug Dosing 62.6 ml/min Est GFR ( Amer) 77.0 Est GFR (Non-Af Amer) 66.4 BUN/Creatinine Ratio 25.5 H (10-20) Glucose 93 (70-99) mg/dl Calcium 9.5 (8.5-10.1) mg/dl Total Bilirubin 0.4 (0.2-1) mg/dl AST 15 (15-37) U/L ALT 18 (12-78) U/L Alkaline Phosphatase 42 L (45-117) U/L Total Protein 7.2 (6.4-8.2) gm/dl Albumin 4.1 (3.4-5.0) gm/dl Globulin 3.1 (2.5-4.0) gm/dl Albumin/Globulin Ratio 1.3 (0.9-2) TSH 1.890 (0.300-4.500) uIu/ml Urine Color Urine Appearance (Clear) Urine pH (4.5-7.5) Ur Specific Kirby (1.000-1.030) Urine Protein (Negative) Urine Glucose (UA) (Negative) Urine Ketones (Negative) Urine Blood (Negative) Urine Nitrite (Negative) Urine Bilirubin (Negative) Urine Urobilinogen (Negative) Ur Leukocyte Esterase (Negative) Salicylates 1.7 L (2.8-20) mg/dl Urine Opiates Screen (Neg) Ur Methadone, Qual (Neg) Acetaminophen < 2 L (10-30) ug/ml Urine Barbiturates (Neg) Ur Phencyclidine (PCP) (Neg) U Amphetamin/Meth Scrn (Neg) MDMA (Ecstasy) Screen (Neg) U Benzodiazepines Scrn (Neg) Ur Cocaine Metabolite (Neg) U Marijuana (THC) Screen (Neg) Ethyl Alcohol mg/dL (0-3) mg/dl 09/25/19 09/25/19 09/25/19 Range/Units 11:24 16:50 16:50 WBC (4.8-10.8) K/uL RBC (4.7-6.1) M/uL Hgb (14.0-18.0) g/dL Hct (42-52) % MCV (80-100) fL MCH (25-34) pg MCHC (32-36) g/dL RDW Std Deviation (36.4-46.3) fL RDW Coeff of Demond (11.5-14.5) % Plt Count (130-400) K/uL MPV (7.4-10.4) fL Immature Gran % (Auto) % Neut % (Auto) % Lymph % (Auto) % [place] % (Auto) % Eos % (Auto) % Baso % (Auto) % Immature Gran # (Auto) (0.00-0.02) K/uL Neut # (Auto) (1.4-6.5) K/uL Lymph # (Auto) (1.2-3.4) K/uL [place] # (Auto) (0.11-0.59) K/uL Eos # (Auto) (0-0.5) K/uL Baso # (Auto) (0-0.2) K/uL Sodium (136-145) mmol/L Potassium (3.5-5.1) mmol/L Chloride (98-107) mmol/L Carbon Dioxide (21-32) mmol/L Anion Gap (3-11) BUN (7-18) mg/dl Creatinine (0.6-1.4) mg/dl Est Cr Clr Drug Dosing ml/min Est GFR ( Amer) Est GFR (Non-Af Amer) BUN/Creatinine Ratio (10-20) Glucose (70-99) mg/dl Calcium (8.5-10.1) mg/dl Total Bilirubin (0.2-1) mg/dl AST (15-37) U/L ALT (12-78) U/L Alkaline Phosphatase (45-117) U/L Total Protein (6.4-8.2) gm/dl Albumin (3.4-5.0) gm/dl Globulin (2.5-4.0) gm/dl Albumin/Globulin Ratio (0.9-2) TSH (0.300-4.500) uIu/ml Urine Color Yellow Urine Appearance Clear (Clear) Urine pH 7.0 (4.5-7.5) Ur Specific Kirby 1.025 (1.000-1.030) Urine Protein Negative (Negative) Urine Glucose (UA) Negative (Negative) Urine Ketones Trace H (Negative) Urine Blood Negative (Negative) Urine Nitrite Negative (Negative) Urine Bilirubin Negative (Negative) Urine Urobilinogen Negative (Negative) Ur Leukocyte Esterase Negative (Negative) Salicylates (2.8-20) mg/dl Urine Opiates Screen Neg (Neg) Ur Methadone, Qual Neg (Neg) Acetaminophen (10-30) ug/ml Urine Barbiturates Neg (Neg) Ur Phencyclidine (PCP) Neg (Neg) U Amphetamin/Meth Scrn Neg (Neg) MDMA (Ecstasy) Screen Neg (Neg) U Benzodiazepines Scrn Neg (Neg) Ur Cocaine Metabolite Neg (Neg) U Marijuana (THC) Screen Neg (Neg) Ethyl Alcohol mg/dL < 3.0 (0-3) mg/dl Blood Pressure Blood Pressure Findings: Elevated blood pressure Blood Pressure Disposition: Referred to patients primary care provider [facility] Narrative Patient is a 69-year-old gentleman with a past medical history of hypertension, COPD, and schizophrenia presenting with police today on a 302. Patient himself states he does not know why he is here. Per the 302 report patient was found to be in a deplorable state at his apartment with paranoid thoughts. Patient continues to voice paranoid thoughts to me here. States he is not taking his medications I think they are trying to harm him. Medical clearance was completed. The patient is not in a position to care for himself given his [place] psychosis. Believe inpatient treatment is required. Discussed with case checker. Patient initially agreeable for 201 voluntary, but has 302 grounds if changes mind. Seen in conjunction with the psychiatric case checker. Signed to my colleague pending bed placement disopsition and completion of 201 vs 302. Impression & Plan Psychosis, Paranoia, Noncompliance with medications Discharge Plan Visit Data Chief Complaint: Mental Health Evaluation Stated Complaint: 302 ED Provider: Librado Reeder Discharge Problem: Psychosis, Paranoia, Noncompliance with medications Patient Disposition: Still a Patient Forms Stand Alone Forms: [facility], Suicide Prevention Resources Prescriptions Prescriptions: No Action risperidone [Risperdal] 4 mg Tablet 4 mg PO DAILY RF: 0 lorazepam 1 mg Tablet 1 mg PO BID RF: 0 trazodone 1 tab PO HS RF: 0 sertraline [Zoloft] 100 mg tablet 100 mg PO DAILY RF: 0 Risperdal 2 mg PO DAILY RF: 0 Referrals Referrals: Trip Segundo MD [Primary Care Provider] - Discharge Problem: Psychosis Qualifiers: Psychosis type: unspecified psychosis type Qualified Code(s): F29 - Unspecified psychosis not due to a substance or known physiological condition The ramu's documentation has been prepared under my direction and personally reviewed by me in its entirety. I confirm that the note above accurately reflects all work, treatment, procedures, and medical decision making performed by me.
[2019-09-25 17:07] LABS: Appearance Urine Clear (Clear); Bilirubin Urine Negative (Negative); Blood Urine Negative (Negative); Color Urine Yellow; Glucose Urine UA Negative (Negative); Ketones Urine Trace (Negative); Leukocyte Esterase Urine Negative (Negative); Nitrite Urine Negative (Negative); Protein Urine Negative (Negative); Specific Gravity Urine 1.025 (1.000-1.030); Urobilinogen Urine Negative (Negative)
[2019-09-25 17:27] LABS: Amphetamines+Metham, Urine Neg (Neg); Barbiturates, Urine Neg (Neg); Benzodiazepine, Urine Neg (Neg); Cocaine, Urine Neg (Neg); MDMA (Ecstacy), Urine Neg (Neg); Methadone, Urine Neg (Neg); Opiate, Urine Neg (Neg); Phencyclidine, Urine Neg (Neg)
[2019-09-25] MEDS ORDERED: haloperidoL 1 MG TAB PO ONE (19:58)
[2019-09-25] MEDS ORDERED: LORazepam 1 MG TAB PO STA (19:58)
--- NOTE | 2019-09-25 20:02 | Emergency Department Note ---
ED Visit Note I received this patient at change of shift signout from Dr. Ugalde. Please see his note for initial history and physical exam. The patient was medically cleared prior to me assuming his care however the patient was still debating if he would be a voluntary or involuntary admission. I did review the patient's 302 petition. The patient's medical clearance was also reviewed. Apparently the patient does have a long history of medication noncompliance as well as psychosis and paranoia. He presented to the emergency department today with po lice. The patient has very severe symptoms at this time. He is very paranoid. He has not been taking his medications because he feels somebody is trying to poison him. When I asked the patient if he would be compliant with his medications he still is refusing to take the medications the way they are prescribed. I do not feel the patient has very good insight into his overall mental health at this time. He does not wish to be a 201 admission. For this reason I do feel the patient would be a better candidate for 302 admission for involuntary treatment. The 302 petition was filled out by myself. The patient is being evaluated by the delegate from [facility] [address] for possible inpatient management at our facility. . : Psychosis Qualifiers: Psychosis type: unspecified psychosis type Qualified Code(s): F29 - Unspecified psychosis not due to a substance or known physiological condition
[2019-09-25] MEDS ORDERED: LORazepam 1 MG TAB PO PRN (21:22)
[2019-09-25] MEDS ORDERED: MAGNESIUM HYDROXIDE SUSP 30 ML UDC PO PRN (21:22)
[2019-09-25] MEDS ORDERED: ACETAMINOPHEN 325 MG TAB PO PRN (21:22)
[2019-09-25] MEDS ORDERED: BISMUTH SUBSALICYLATE PER ML OMNICELL CHARGE PO PRN (21:22)
[2019-09-25] MEDS ORDERED: ALUMINUM/MAGNESIUM SUSP 30 ML UDC PO PRN (21:22)
[2019-09-25] MEDS ORDERED: SODIUM CHLORIDE 0.65% NA SOLN 45 ML (OCEAN) PRN (21:22)
[2019-09-25] MEDS ORDERED: haloperidoL 5 MG TAB PO SCH (21:30)
[2019-09-25] MEDS ORDERED: haloperidoL 5 MG TAB PO PRN (22:02)
[2019-09-26] MEDS: lamoTRIgine 25 MG TAB PO SCH (09:44)
[2019-09-26] MEDS: NICOTINE 14 MG/24 HR PATCH TD SCH (09:45)
--- NOTE | 2019-09-26 09:59 | History & Physical ---
Date of Service September 26, 2019 Impression / Recommendations (1) Chronic paranoid schizophrenia: 09/26 -longstanding schizophrenia with limited medication adherence. -Was apparently hospitalized at [facility] 2 months ago and was discharged on haloperidol and lamotrigine. He was noncompliant with the haloperidol, but is willing to continue lamotrigine so we will continue 50 mg daily. -He is also willing to continue temazepam 15 mg at bedtime, so will continue that as well. -He is refusing quetiapine (had been prescribed last week by his outpatient psychiatrist after he agreed to take it, but now states he never took it). He had previously been on risperidone, so will order 1 mg twice daily in the hopes that he will consider retrying it. He is unwilling to engage in a discussion of different antipsychotic medications, stating that he does not have schizophrenia and does not need an antipsychotic. Ideally, he would be on a long-acting injectable antipsychotic, given his history of chronic nonadherence, but he is unwilling for that as well. If he is willing to take the risperidone, we will need to check fasting lipid profile and glucose. -Patient is on a 302 involuntary commitment. We will continue to gather information toward the need for ongoing commitment. Based on what we currently know, I do not believe he meets criteria for 303 involuntary commitment. Although he is clearly psychotic and irritable, has poor self-care/hygiene, and his apartment is dirty and unkempt, I do not see evidence that his decompensated mental illness places him at imminent risk of , disability, or serious injury within 30 days. He states he has an apartment which he plans to return, and access card with which he buys food, and is willing to take some medications and follow-up with his outpatient psychiatrist. We will need to get information from his housing transitions manager rn case, who may have additional pertinent information regarding his housing. -Care coordinated with outpatient psychiatrist, Dr. Campbell, today. (2) Noncompliance with medications: 09/26 -continue to encourage him to consider long-acting injectable antipsychotic, which would be beneficial given his chronic nonadherence with antipsychotic medication. (3) Hypertension: 09/26 -history of hypertension, not currently prescribed medication. Blood pressure borderline elevated 153/80. Refer to PCP, Dr. Segundo, for outpatient follow-up. Risk Factors Assessment Male: Yes : Yes Do You Have Access To A Gun?: No Health Problems: No Mental Health Diagnoses: Yes Substance Use Disorders: No Previous Attempt: No Family History of Suicide: No Previous Psychiatric Hospitalization: Yes Hopelessness: No Smoker: Yes Protective Factors Assessment Spiritism Beliefs: No : No Responsible for Young Children: No Employed: No Stable Relationships: No Supportive Family: No Psychiatric History Identifying Data ZAK EDMONDSON is a 69-year-old M who currently lives in [place] alone, has a history of schizophrenia and noncompliance with medication, and was admitted o n 09/25/19 21:22 on a 302 involuntary commitment for psychosis and medication nonadherence. Chief Complaint " I feel good, all I need is my medicine". History of Present Illness The patient is well-known to me from previous hospitalizations; he was last on our unit for 37 days , was on a 304 involuntary commitment, and was discharged on Risperdal Consta. He was homeless at the time, but was working with [employer] to find permanent housing. He was seen on the psychiatric consult service in 08/2017 when he was hospitalized medically for influenza we were asked to give recommendations regarding his psychotropic medications. He was taking risperidone and temazepam, and recommendations were to continue these and resume outpatient treatment with his psychiatrist, Dr. Campbell at the [facility]. He presented to the ER yesterday, 09/25/2019, on a 302 warrant. Petition completed by his Housing Transitions manager rn case and states she "walked into Diego's apartment on 09/24/2019 to visit. Diego's apartment was in disarray, there was trash all over the floor, liquid on his tile in his kitchen. Diego's special education resource teacher was there and him was arguing with the special education resource teacher and I about his apartment. Diego began to argue about having cleaning supplies, which he showed me bottles and the bottles were empty. To him argued they weren't empty. Diego began to become aggressive. Diego advised me he was fine then advised me his bank card from [employer] was not working and that the government "stole his money." I observed that Diego had a wet antonio on the back of his jeans, the antonio was pretty big and appeared to be pee. Diego's doctor also called me on 09/23/2019 to notify me that Diego was not taking his meds. Diego becomes aggressive when he isn't taking his meds so it appeared he hadn't taken them. Due to Diego's aggression the special education resource teacher and I had to leave Diego's apartment. Diego has a history of mental health and is diagnosed with schizophrenia." In the ER, the patient reported he was not taking his medication because someone is poisoning them. He said the government was stealing his money and watching him, and people in the hospital are trying to get him because they think he is a spy. He refused to provide a urine sample, and refused to consider voluntary treatment, stating he did not need to be in the hospital. He later said that he needed to get things in his life together, including medical benefits and finances, and was willing to sign in voluntarily. When the liaison nurse met with him, he was uncooperative, would not answer questions, and declined voluntary treatment, so was ultimately admitted on a 302 involuntary commitment. He refused to take Haldol and Ativan in the ER when they were offered. He did except Lorazepam when he arrived on the unit, and was up several times overnight, coming out for snacks and drinks. This morning, he was seen in his room, where he is seated on his bed awake. He says he is here because "I was gatito loud, the way I talked was gatito, showed I was feeling unusual, she thought maybe indicated I needed help. She knew I wasn't taking my medicine." He says that he ran out of his medications and that is why he was not taking them, but when reviewed his external med history and advised that he just filled all of his psychotropic prescriptions 10 days ago, he says he "gave some of them away to a girl who was dying from some strange disease." He says he is only willing to take temazepam and lamotrigine, which he calls "Lamotrine," and becomes irritated when attempting to clarify what medication he is talking about, stating "when the O in trone is fully broken, it says I." He repeatedly states he does not want to take an antipsychotic medication, as he does not need it, and does not believe schizophrenia is a real thing. He is adamantly opposed to the idea of a long-acting injectable antipsychotic. He says "I'm not paranoid, I'm tensed up, my thinking is too fast, I can't keep on a situation for too long a time without it dropping off." He has difficulty yoli ntifying which medications he has been prescribed recently, stating "it keeps changing, can't get me the right ones." He says he was told to "take the Haldol for a few days, then drop it," and does not want to continue taking it. He says he never took Seroquel (although filled the prescription 09/17/2019), stating "why would I take that? It knocks you out too hard." He says he would be interested in some Ritalin if I would give him that, but otherwise does not want any new medications. He denies hallucinations, suicidal thoughts, and homicidal thoughts. He denies concerns for his safety and any concerns about his apartment, stating he will return there at discharge. He states that he is able to get food with his access card, but that another one of his credit cards has not been working, so he has not been able to buy cleaning supplies, which is why his apartment is dirty. He says he does not have a therapist or a mental health manager rn case, and does not feel he needs these services. Spoke with Dr. Campbell who had not seen the patient from 2018 - 09/16/2019. He missed multiple appointments, and had been admitted to [facility]. In the past, he has only been willing to take moderate doses of risperidone, as well as lorazepam and temazepam, but when he was discharged from [facility] he was on haloperidol and lamotrigine. When she saw him on 09/16/2019, he had not been on an antipsychotic for at least a month, and was irritable, psychotic, paranoid, was concerned that the person who comes in to clean his apartment was bugging his apartment and didn't trust him, reported conspiracy theories involving mandaen, ideas of reference stating the way the light reflected off objects had special reference. He was very loose in his associations. He denies SI and HI, and was unwilling for voluntary hospitalization, but did not meet criteria for involuntary treatment. Past Psychiatric History Previous Psych History: Long history of schizophrenia. He has been homeless at times in the past, previously lived at the [facility], and also at [facility] personal [facility] in [place]. Current Psychiatric Diagnosis: Paranoid Schizophrenia Outpatient Services: Psychiatrist: Dr. Campbell at the [facility] No therapist or mental health manager rn case. Case management through housing transitions: Tae Hooks Previous Psych Admissions: Per Dr. Campbell, he was hospitalized at [facility] in 06/2019. Also had past hospitalizations there, dates unknown. [facility], 06/2012, 07/2000, 04/2000, 04/1999, 02/1998 [facility] -8 months in 1999 Do You Have Access To A Gun?: No History of Previous Suicide Attempt: No (Patient denies) Past Medication Trials: Risperidal Consta 25mm - when here in [id number] Risperidone Olanzapine Clozapine -seizures per old records [place] -stat as an allergy and old records with unknown reaction Chlorpromazine -listed as an allergy in old records with unknown reaction Haldol -started at [facility] 06/2019 Lamotrigine -started at [facility] 06/2019 Lorazepam Temazepam Allergies Allergy/AdvReac Type Severity Reaction Status Date / Time No Known Allergies Allergy Unverified 07/04/19 13:45 Home Medications Home Medications Medication Instructions Recorded Confirmed Type haloperidol 5 mg PO BID 09/25/19 09/25/19 History lamotrigine 50 mg PO DAILY 09/25/19 09/25/19 History quetiapine 200 mg PO HS 09/25/19 09/25/19 History temazepam 15 mg PO 09/25/19 09/25/19 History Family History Family History of: None Alcohol History Hx of Alcohol Use Over the Past 12 Months: No AUDIT Total Score: 0 Smoking Use Have You Smoked or Used Tobacco Products in the Last 30 Days: Yes tobacco type: cigarettes Smoking Status: Current every day smoker Smoking packs per day: 0.75 Substance History Hx of Prescription Med Misuse Over the Past 12 Months: No Hx of Over the Counter Med Misuse Over the Past 12 Months: No Hx of Inhalent Misuse Over the Past 12 Months: No Hx of Organic Substance Use Over the Past 12 Months: No Hx of Illegal Substances/Street Drug Use Over Past 12 Months: No Problems as a Result of Past Substance Use: None Identified Remote history of alcohol abuse. Use of LSD and marijuana in high school per records. Personal History Living Arrangements: Apartment Living Arrangements Comments: Apartment in [place] through housing transitions. Lives alone. Has in-home assistance from housing transitions Childhood: Per previous records, the patient grew up locally. He was raised by both parents. 5 siblings with whom he has no contact. Highest Grade Completed: High School Graduate Employment Status: Disabled Marital Status: Single Number Of Children: 0 Beliefs That Will Affect Care: None Current Legal Problems: No (Patient denies) Hx Traumatic Life Events: No Patient History Social History Preferred Language: Turkmen Communication Ability: Effective Lamination Spinner Required: No Beliefs That Will Affect Care: None Current Living Situation: Alone Feels Safe at Home: Yes Smoking Status: Current every day smoker Tobacco Type: cigarettes ; Cigarettes Per Day: 2ppd ; Second Hand Exposure: No ; Hx Alcohol Use: No Hx Substance Use: No Review of Systems Review of Systems: All systems reviewed & are unremarkable except as noted in HPI & below Physical Exam Psychiatric: Orientation: alert and cooperative (Partially, at times gets irritated and does not want to answer questions, but redirectable) Appears stated age. Unkempt and disheveled, close visibly soiled, missing teeth, limited hygiene and grooming. Seated on his bed in no acute distress. Eye Contact: + fair eye contact Makes intermittent eye contact. Motor Behavior: steady gait and station Repeatedly flexes and extends fingers bilaterally Speech: normal rate/rhythm/volume of speech (Irritated tone at times) Affect: + irritable affect "I'm okay." Thought Process: + tangential thought process and + looseness of associations Able to answer questions appropriately, but requires redirection at times due to loose associations. At times difficult to understand his train of thought Thought Content: + paranoid, + delusions and + ideas of reference Suicidal Thoughts: denies suicidal thoughts Homicidal Thoughts: denies homicidal thoughts Hallucinations: no auditory hallucinations and no visual hallucinations Cognition: recent memory grossly intact and language grossly intact; + attention not intact Insight: + poor insight Judgement: + poor judgement Vital Signs (Past 24 Hours): Last Vital Signs Temp 36.5 C 09/26/19 06:00 Pulse 103 H 09/26/19 06:00 Resp 18 09/26/19 06:00 BP 153/80 H 09/26/19 06:00 Pulse Ox 97 09/25/19 22:08 Results & Data Laboratory Results Laboratory Results - last 24 hr 09/25/19 09/25/19 09/25/19 11:23 11:23 11:24 WBC 10.84 H RBC 5.11 Hgb 15.5 Hct 46.1 MCV 90.2 MCH 30.3 MCHC 33.6 RDW Std Deviation 48.9 H RDW Coeff of Demond 14.8 H Plt Count 280 MPV 10.4 Immature Gran % (Auto) 0.5 Neut % (Auto) 76.6 Lymph % (Auto) 14.8 [place] % (Auto) 7.0 Eos % (Auto) 0.7 Baso % (Auto) 0.4 Immature Gran # (Auto) 0.05 H Neut # (Auto) 8.31 H Lymph # (Auto) 1.60 [place] # (Auto) 0.76 H Eos # (Auto) 0.08 Baso # (Auto) 0.04 Sodium 141 Potassium 5.0 Chloride 110 H Carbon Dioxide 26 Anion Gap 5.0 BUN 29 H Creatinine 1.13 Est Cr Clr Drug Dosing 62.6 Est GFR ( Amer) 77.0 Est GFR (Non-Af Amer) 66.4 BUN/Creatinine Ratio 25.5 H Glucose 93 Calcium 9.5 Total Bilirubin 0.4 AST 15 ALT 18 Alkaline Phosphatase 42 L Total Protein 7.2 Albumin 4.1 Globulin 3.1 Albumin/Globulin Ratio 1.3 TSH 1.890 Urine Color Urine Appearance Urine pH Ur Specific [place] Urine Protein Urine Glucose (UA) Urine Ketones Urine Blood Urine Nitrite Urine Bilirubin Urine Urobilinogen Ur Leukocyte Esterase Salicylates 1.7 L Urine Opiates Screen Ur Methadone, Qual Acetaminophen < 2 L Urine Barbiturates Ur Phencyclidine (PCP) U Amphetamin/Meth Scrn MDMA (Ecstasy) Screen U Benzodiazepines Scrn Ur Cocaine Metabolite U Marijuana (THC) Screen Ethyl Alcohol mg/dL 09/25/19 09/25/19 09/25/19 11:24 16:50 16:50 WBC RBC Hgb Hct MCV MCH MCHC RDW Std Deviation RDW Coeff of Demond Plt Count MPV Immature Gran % (Auto) Neut % (Auto) Lymph % (Auto) [place] % (Auto) Eos % (Auto) Baso % (Auto) Immature Gran # (Auto) Neut # (Auto) Lymph # (Auto) [place] # (Auto) Eos # (Auto) Baso # (Auto) Sodium Potassium Chloride Carbon Dioxide Anion Gap BUN Creatinine Est Cr Clr Drug Dosing Est GFR ( Amer) Est GFR (Non-Af Amer) BUN/Creatinine Ratio Glucose Calcium Total Bilirubin AST ALT Alkaline Phosphatase Total Protein Albumin Globulin Albumin/Globulin Ratio TSH Urine Color Yellow Urine Appearance Clear Urine pH 7.0 Ur Specific [place] 1.025 Urine Protein Negative Urine Glucose (UA) Negative Urine Ketones Trace H Urine Blood Negative Urine Nitrite Negative Urine Bilirubin Negative Urine Urobilinogen Negative Ur Leukocyte Esterase Negative Salicylates Urine Opiates Screen Neg Ur Methadone, Qual Neg Acetaminophen Urine Barbiturates Neg Ur Phencyclidine (PCP) Neg U Amphetamin/Meth Scrn Neg MDMA (Ecstasy) Screen Neg U Benzodiazepines Scrn Neg Ur Cocaine Metabolite Neg U Marijuana (THC) Screen Neg Ethyl Alcohol mg/dL < 3.0 Current Inpatient Medications Current Inpatient Medications: Current Inpatient Medications Acetaminophen (Tylenol) 650 mg PO Q4H PRN PRN Reason: Headache or Minor Fever Stop: 10/25/19 21:21 Al Hydrox/Mg Hydrox/Simethicone (Maalox) 30 ml PO Q4H PRN PRN Reason: GI Upset Stop: 10/25/19 21:21 Bismuth Subsalicylate (Kaopectate) 15 ml PO PRN PRN PRN Reason: Loose Stool Stop: 10/25/19 21:21 Haloperidol (Haldol) 10 mg PO Q4H PRN PRN Reason: psychosis Stop: 10/25/19 22:01 Haloperidol (Haldol) 5 mg PO BID NARAYAN Stop: 10/25/19 21:29 Hydroxyzine HCl (Vistaril) 50 mg PO HSZ PRN PRN Reason: Insomnia Stop: 10/25/19 21:21 Hydroxyzine HCl (Vistaril) 25 mg PO Q4H PRN PRN Reason: Anxiety Stop: 10/25/19 21:21 Lamotrigine (Lamictal) 50 mg PO DAILY NARAYAN Stop: 10/26/19 08:59 Lorazepam (Ativan) 1 mg PO Q4H PRN PRN Reason: psychosis Stop: 10/25/19 21:21 Last Admin: 09/26/19 01:18 Dose: 1 mg Documented by: Magnesium Hydroxide (Milk Of Magnesia) 30 ml PO DAILY PRN PRN Reason: Constipation Stop: 10/25/19 21:21 Miscellaneous (Remove Nicoderm Patch) 1 ea N/A DAILY@[id number] [facility] Stop: 10/27/19 08:58 Nicotine (Nicoderm Cq) 14 mg TD QAM [facility] Stop: 10/26/19 08:59 Quetiapine Fumarate (Seroquel) 200 mg PO HS [facility] Stop: 10/26/19 20:59 Sodium Chloride (Echo Nasal) 1 - 2 sprays NA PRN PRN PRN Reason: Nasal Dryness/Congestion Stop: 10/25/19 21:21 Temazepam (Restoril) 15 mg PO HS [facility] Stop: 10/26/19 20:59
[2019-09-26] MEDS: risperiDONE 1 MG TABLET PO SCH ×2 (12:35→20:57)
[2019-09-26] MEDS ORDERED: QUETIAPINE FUMARATE 200 MG TAB PO SCH (21:00)
[2019-09-26] MEDS ORDERED: TEMAZEPAM 15 MG CAPSULE PO SCH (21:00)
[2019-09-27] MEDS: lamoTRIgine 25 MG TAB PO SCH (07:50)
[2019-09-27] MEDS: NICOTINE 14 MG/24 HR PATCH TD SCH (07:53)
[2019-09-27] MEDS: risperiDONE 1 MG TABLET PO SCH ×2 (07:53→22:11)
--- NOTE | 2019-09-27 10:28 | Psychiatric Progress Note ---
Date of Service September 27, 2019 Impression / Recommendations Impression This patient carries a diagnosis of chronic schizophrenia. He voices a poorly systematized paranoid delusions, appears to be experiencing auditory hallucinations (although he denies this), and has very limited insight into his illness, although he does acknowledge that he does need psychiatric treatment. The record indicates that, in the past, when the patient has been off psychiatric medications he can become physically aggressive, and the patient does acknowledge that, in fact, prior to admission he had stopped taking his medications. However, thus far we have seen no evidence of dyscontroled behavior by the patient. He is taking his prescribed medications, with exception of risperidone. He explains his refusal of risperidone by saying, "That's for crazy people. I am not crazy. All I need is [lamotrigine, and various benzodiazepines]." Attempts today to convince the patient of his need for an antipsychotic medication, "as a good nerve medication" were consistently met with refusals by the patient. He seems to have recognized the names of every antipsychotic medication mentioned, including first and second generation antipsychotic medications, and he explained the refusal both by saying that he does not like this "side effects" (although he has trouble identifying the side effects) and because he says that he knows these are medications used for "crazy people," and that he is not crazy. We do not feel that we can safely discharge the patient at this point given his past history of explosive behavior when off medications. However, he is at least taking a mood stabilizer and cooperating with taking a hypnotic medication for insomnia. The patient reports that he slept poorly, even after dose of temazepam 15 mg, and the nursing record for the night of 09/26-09/27 indicates that he had sleep onset delays, as well as frequent intermittent insomnia with an estimated number of hours of sleep as being only 2 hours. He does say that he thought that temazepam helped "a little," and he said that he would like to try it again "tonight." (1) Chronic paranoid schizophrenia: 09/26 -longstanding schizophrenia with limited medication adherence. -Was apparently hospitalized at [facility] [place] 2 months ago and was discharged on haloperidol and lamotrigine. He was noncompliant with the haloperidol, but is willing to continue lamotrigine so we will continue 50 mg daily. -He is also willing to continue temazepam 15 mg at bedtime, so will continue that as well. -He is refusing quetiapine (had been prescribed last week by his outpatient psychiatrist after he agreed to take it, but now states he never took it). He had previously been on risperidone, so will order 1 mg twice daily in the hopes that he will consider retrying it. He is unwilling to engage in a discussion of different antipsychotic medications, stating that he does not have schizophrenia and does not need an antipsychotic. Ideally, he would be on a long-acting injectable antipsychotic, given his history of chronic nonadherence, but he is unwilling for that as well. If he is willing to take the risperidone, we will need to check fasting lipid profile and glucose. -Patient is on a 302 involuntary commitment. We will continue to gather information toward the need for ongoing commitment. Based on what we currently know, I do not believe he meets criteria for 303 involuntary commitment. Although he is clearly psychotic and irritable, has poor self-care/hygiene, and his apartment is dirty and unkempt, I do not see evidence that his decompensated mental illness places him at imminent risk of , disability, or serious injury within 30 days. He states he has an apartment which he plans to return, and access card with which he buys food, and is willing to take some medications and follow-up with his outpatient psychiatrist. We will need to get information from his housing transitions onsite case manager, who may have additional pertinent information regarding his housing. -Care coordinated with outpatient psychiatrist, Dr. Campbell, today. 09/27 -The patient continues to demonstrate psychotic symptoms, of a paranoid nature. However, at least one instance he was able to "rethink" a paranoid delusional belief when it was questioned by the examiner, and he changed his stated belief to a non-paranoid explanation for a related event. -He steadfastly refuses to consider any antipsychotic medication, and appears to be confabulating vague side effects every time any such medication (first or second generation antipsychotic) is mentioned to him. He explains this refusal in terms of saying that he knows that the medications are for "crazy people" and he asserts that he has no need for such medications because he is "not crazy." -The patient's associations loosen with the lack of external structure, but he can be reorganized with external structure. At times, his speech becomes somewhat rapid, and there may be an affective component to the patient's presentation. He also tells us that he feels that lamotrigine is "the only [psychiatric] medication that he is ever taken" (apart from various benzodiazepines) that has worked." He admits that he also has stopped taking lamotrigine prior to admission, but says that he does not have a good explanation for that other than he "sometimes" just stops medications. -A concern reported at the time of the patient's admission to the hospital was that the patient was neglecting self-care, and the patient acknowledges that he had allowed his apartment, and himself, to become "kind of messy." He ex ternalizes responsibility for this circumstance in terms of an inability to purchase cleaning supplies due to financial limitations, and a similar inability to regularly wash or purchase clothes. When asked why a lack of cleaning supplies would prevent him from picking up clutter in his apartment, or for wiping up spills with a cloth, he shrugged and said, "I guess it would not." However, in the unit, the patient has been generally attending to his own physical needs. He is also been eating well. -The patient also has a reported history of explosive or aggressive behaviors when not taking psychiatric medications. However, the patient has not demonstrated any such behaviors on the unit since admission, is generally pleasant and cooperative, and, in fact, is agreeing to take selective m edications, namely temazepam and risperidone. -We do not find that medications over objection would be clinically appropriate at this time, given the patient's insistence that he will refuse all antipsychotic medications in the community, even if they are given to him here in the hospital. He has had multiple trials of antipsychotic medications in the past, and has a long history of nonadherence. (2) Noncompliance with medications: 09/26 -continue to encourage him to consider long-acting injectable antipsychotic, which would be beneficial given his chronic nonadherence with antipsychotic medication. 09/27 -The patient confirms that he has a long history of nonadherence with psychiatric medications. He refuses oral antipsychotic medications at this time, and we are continuing to convince the patient that these medications are are necessary to "treat [his] nerves," and to "keep [him] out of the hospital." So far, these efforts have been unsuccessful. We do not feel that medication over objection would be appropriate at this time. The patient is also refusing Depo injectable forms of the medications in question. (3) Hypertension: 09/26 -history of hypertension, not currently prescribed medication. Blood pressure borderline elevated 153/80. Refer to PCP, Dr. Segundo, for outpatient follow-up. Risk Factors Assessment Male: Yes : Yes Do You Have Access To A Gun?: No Health Problems: No Mental Health Diagnoses: Yes Substance Use Disorders: No Previous Attempt: No Family History of Suicide: No Previous Psychiatric Hospitalization: Yes Hopelessness: No Smoker: Yes Protective Factors Assessment Moravian Beliefs: No : No Responsible for Young Children: No Employed: No Stable Relationships: No Supportive Family: No Interval History Chief Complaint " I am doing okay. My case checker said my place was a mess, and she was right." Review of Systems Sleep Information Total Hours of Sleep: 2 Meal Information Percent Meal Consumed - Breakfast: 100 Percent Meal Consumed - Lunch: 100 Percent Meal Consumed - Dinner: 100 Subjective Subjective Patient was seen & assessed and interval progress reviewed with treatment team. I met individually with the patient in order to assess his current mental status, evaluate his response to treatment, coordinate any recommended changes in the patient's treatment regimen with the patient, and address issues, concerns and questions that may arise. The patient began by telling me that, from his perspective, the admission was precipitated by the fact that he has residential sales associate, a woman who checks on him regularly, came to his apartment and found that, in the patient's were, "the place was a mess." He acknowledges that this was true, but says that he has been unable to afford cleaning supplies, including laundry detergent, and he does not have sufficient resources to buy new clothes or to regularly wash them. The patient also acknow ledges that he had stopped taking his medications, and explains this by saying, simply "I do that sometimes. I do not like to take medicine. I do not want to take risperidone, but lamotrigine really helps." Much of today's encounter was focused on efforts to explain to the patient why he would need to take an antipsychotic medication such as risperidone. The patient says that he does not like risperidone because it makes him too sleepy, and then later said that he was having some difficulty sleeping. However, when I suggested that we change the dose schedule of risperidone so that it is taken at bedtime, rather than during the day, the patient said that he would declined to take risperidone. We went through different antipsychotic medications, and the patient responded only by saying, "I think all I really need is lamotrigine, Valium, or lorazepam." Without the provision of external structure, the patient's associations loosened. He briefly entertained the idea that various retail establishments in his area may be conspiring to "fix it" so his government entitlement debit card keeps getting rejected. However, when I ask him if it made sense to him that "every machine at every store is doing it," he stopped, appear to be thinking, and said, "I guess you are right. May be there is just a glitch in the edo's computer or something." Staff report that the patient behavior has been generally appropriate here. He has been eating, tending to his personal needs, and has not made any threatening statements. He has cooperated to the extent that he has signed releases of information, and has been taking prescribed medications, with the exception of risperidone. The patient's main complaint today is persistent poor sleep. Physical Exam Psychiatric Orientation: alert and oriented x 3 Apperance: appropriately dressed and + disheveled Eye Contact: + fair eye contact Motor Behavior: steady gait and station Speech: normal rate/rhythm/volume of speech Affect: + blunted affect "My mood is good. That lamotrigine is good medicine. Is the first that ever helped." Thought Process: + looseness of associations Thought Content: + delusions Suicidal Thoughts: denies suicidal thoughts Homicidal Thoughts: denies homicidal thoughts The patient denies auditory hallucinations, but appears to be responding to internal stimuli. When confronted with this, the patient said, "sometimes I talk to myself. That does not make me crazy." Assessment of the patient's cognitive abilities is somewhat difficult because the patient tends to minimize symptoms and may confabulate reasons to not take certain medications he identifies as being "for people who are crazy, and I am not crazy." Estimated Intelligence: average estimated intelligence Insight: + poor insight Judgement: + limited judgement Vital Signs (Past 24 Hours) Last Vital Signs Temp 36.6 C 09/27/19 06:00 Pulse 69 09/27/19 06:00 Resp 18 09/27/19 06:00 BP 147/90 H 09/27/19 06:00 Pulse Ox 97 09/25/19 22:08 Results & Data Current Inpatient Medications Current Inpatient Medications: Current Inpatient Medications Acetaminophen (Tylenol) 650 mg PO Q4H PRN PRN Reason: Headache or Minor Fever Stop: 10/25/19 21:21 Al Hydrox/Mg Hydrox/Simethicone (Maalox) 30 ml PO Q4H PRN PRN Reason: GI Upset Stop: 10/25/19 21:21 Last Admin: 09/26/19 21:47 Dose: 30 ml Documented by: Bismuth Subsalicylate (Kaopectate) 15 ml PO PRN PRN PRN Reason: Loose Stool Stop: 10/25/19 21:21 Haloperidol (Haldol) 10 mg PO Q4H PRN PRN Reason: psychosis Stop: 10/25/19 22:01 Hydroxyzine HCl (Vistaril) 50 mg PO HSZ PRN PRN Reason: Insomnia Stop: 10/25/19 21:21 Last Admin: 09/26/19 22:18 Dose: 50 mg Documented by: Hydroxyzine HCl (Vistaril) 25 mg PO Q4H PRN PRN Reason: Anxiety Stop: 10/25/19 21:21 Lamotrigine (Lamictal) 50 mg PO DAILY [facility] Stop: 10/26/19 08:59 Last Admin: 09/27/19 07:50 Dose: 50 mg Documented by: Lorazepam (Ativan) 1 mg PO Q4H PRN PRN Reason: psychosis Stop: 10/25/19 21:21 Last Admin: 09/26/19 01:18 Dose: 1 mg Documented by: Magnesium Hydroxide (Milk Of Magnesia) 30 ml PO DAILY PRN PRN Reason: Constipation Stop: 10/25/19 21:21 Miscellaneous (Remove Nicoderm Patch) 1 ea N/A DAILY@[id number] [facility] Stop: 10/27/19 08:58 Last Admin: 09/27/19 07:53 Dose: Not Given Documented by: Nicotine (Nicoderm Cq) 14 mg TD QAM [facility] Stop: 10/26/19 08:59 Last Admin: 09/27/19 07:53 Dose: Not Given Documented by: Risperidone (Risperdal) 1 mg PO BID [facility] Stop: 10/26/19 10:59 Last Admin: 09/27/19 07:53 Dose: Not Given Documented by: Sodium Chloride ([place] Nasal) 1 - 2 sprays NA PRN PRN PRN Reason: Nasal Dryness/Congestion Stop: 10/25/19 21:21 Temazepam (Restoril) 15 mg PO HS [facility] Stop: 10/26/19 20:59 Last Admin: 09/26/19 20:56 Dose: 15 mg Documented by: Mental Health & Subst Abuse Tx Therapist Name of Therapist: None, not willing Car Coupler Name of Car Coupler: Housing Transitions, [facility] Post Discharge Appointments Primary Care Physician Name Of Family Doctor: Saundra Justin
[2019-09-27] MEDS: TEMAZEPAM 7.5 MG CAPSULE PO PRN (22:12)
[2019-09-28] MEDS: lamoTRIgine 25 MG TAB PO SCH (08:24)
[2019-09-28] MEDS: risperiDONE 1 MG TABLET PO SCH ×2 (08:26→21:02)
[2019-09-28] MEDS: NICOTINE 14 MG/24 HR PATCH TD SCH (08:26)
--- NOTE | 2019-09-28 10:50 | Psychiatric Progress Note ---
Date of Service September 28, 2019 Impression / Recommendations Impression This patient carries a diagnosis of chronic schizophrenia. He voices a poorly systematized paranoid delusions, appears to be experiencing auditory hallucinations (although he denies this), and has very limited insight into his illness, although he does acknowledge that he does need psychiatric treatment. The record indicates that, in the past, when the patient has been off psychiatric medications he can become physically aggressive, and the patient does acknowledge that, in fact, prior to admission he had stopped taking his medications. However, thus far he's maintained behavioral control and taking prescribed medications, with exception of risperidone. (1) Chronic paranoid schizophrenia: 09/26 -longstanding schizophrenia with limited medication adherence. -Was apparently hospitalized at [facility] 2 months ago and was discharged on haloperidol and lamotrigine. He was noncompliant with the haloperidol, but is willing to continue lamotrigine so we will continue 50 mg daily. -He is also willing to continue temazepam 15 mg at bedtime, so will continue that as well. -He is refusing quetiapine (had been prescribed last week by his outpatient psychiatrist after he agreed to take it, but now states he never took it). He had previously been on risperidone, so will order 1 mg twice daily in the hopes that he will consider retrying it. He is unwilling to engage in a discussion of different antipsychotic medications, stating that he does not have schizophrenia and does not need an antipsychotic. Ideally, he would be on a long-acting injectable antipsychotic, given his history of chronic nonadherence, but he is unwilling for that as well. If he is willing to take the risperidone, we will need to check fasting lipid profile and glucose. -Patient is on a 302 involuntary commitment. We will continue to gather information toward the need for ongoing commitment. Based on what we currently know, I do not believe he meets criteria for 303 involuntary commitment. Although he is clearly psychotic and irritable, has poor self-care/hygiene, and his apartment is dirty and unkempt, I do not see evidence that his decompensated mental illness places him at imminent risk of , disability, or serious injury within 30 days. He states he has an apartment which he plans to return, and access card with which he buys food, and is willing to take some medications and follow-up with his outpatient psychiatrist. We will need to get information from his housing transitions case investigator, who may have additional pertinent information regarding his housing. -Care coordinated with outpatient psychiatrist, Dr. Campbell, today. 09/27 -The patient continues to demonstrate psychotic symptoms, of a paranoid nature. However, at least one instance he was able to "rethink" a paranoid delusional belief when it was questioned by the examiner, and he changed his stated belief to a non-paranoid explanation for a related event. -He steadfastly refuses to consider any antipsychotic medication, and appears to be confabulating vague side effects every time any such medication (first or second generation antipsychotic) is mentioned to him. He explains this refusal in terms of saying that he knows that the medications are for "crazy people" and he asserts that he has no need for such medications because he is "not crazy." -The patient's associations loosen with the lack of external structure, but he can be reorganized with external structure. At times, his speech becomes somewhat rapid, and there may be an affective component to the patient's p resentation. He also tells us that he feels that lamotrigine is "the only [psychiatric] medication that he is ever taken" (apart from various benzodiazepines) that has worked." He admits that he also has stopped taking lamotrigine prior to admission, but says that he does not have a good explanation for that other than he "sometimes" just stops medications. -A concern reported at the time of the patient's admission to the hospital was that the patient was neglecting self-care, and the patient acknowledges that he had allowed his apartment, and himself, to become "kind of messy." He externalizes responsibility for this circumstance in terms of an inability to purchase cleaning supplies due to financial limitations, and a similar inability to regularly wash or purchase clothes. When asked why a lack of cleaning supplies would prevent him from picking up clutter in his apartment, or for wiping up spills with a cloth, he shrugged and said, "I guess it would not." However, in the unit, the patient has been generally attending to his own physical needs. He is also been eating well. -The patient also has a reported history of explosive or aggressive behaviors when not taking psychiatric medications. However, the patient has not demonstrated any such behaviors on the unit since admission, is generally pleasant and cooperative, and, in fact, is agreeing to take selective medica tions, namely temazepam and risperidone. -We do not find that medications over objection would be clinically appropriate at this time, given the patient's insistence that he will refuse all antipsychotic medications in the community, even if they are given to him here in the hospital. He has had multiple trials of antipsychotic medications in the past, and has a long history of nonadherence. (2) Noncompliance with medications: 09/26 -continue to encourage him to consider long-acting injectable antipsychotic, which would be beneficial given his chronic nonadherence with antipsychotic medication. 09/27 -The patient confirms that he has a long history of nonadherence with psychiatric medications. He refuses oral antipsychotic medications at this t liudmila, and we are continuing to convince the patient that these medications are are necessary to "treat [his] nerves," and to "keep [him] out of the hospital." So far, these efforts have been unsuccessful. We do not feel that medication over objection would be appropriate at this time. The patient is also refusing Depo injectable forms of the medications in question. (3) Hypertension: 09/26 -history of hypertension, not currently prescribed medication. Blood pressure borderline elevated 153/80. Refer to PCP, Dr. Segundo, for outpatient follow-up. Risk Factors Assessment Male: Yes : Yes Do You Have Access To A Gun?: No Health Problems: No Mental Health Diagnoses: Yes Substance Use Disorders: No Previous Attempt: No Family History of Suicide: No Previous Psychiatric Hospitalization: Yes Hopelessness: No Smoker: Yes Protective Factors Assessment Sikhism Beliefs: No : No Responsible for Young Children: No Employed: No Stable Relationships: No Supportive Family: No Interval History Chief Complaint "I'm not able to talk with you right now, I have the montague". Review of Systems Sleep Information Total Hours of Sleep: 4.75 Meal Information Percent Meal Consumed - Breakfast: 100 Percent Meal Consumed - Lunch: 100 Percent Meal Consumed - Dinner: 100 Subjective Subjective Patient was seen & assessed and interval progress reviewed with nursing. continues to refuse antipsychotic, slept double what he did the night before. Laughs to himself inappropriately as if responding to internal stimuli but not agitated. 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 Cognition: language grossly intact; + attention not intact Insight: + poor insight Judgement: + poor judgement Vital Signs (Past 24 Hours) Last Vital Signs Temp 36.8 C 09/28/19 06:00 Pulse 67 09/28/19 06:00 Resp 18 09/28/19 06:00 BP 142/84 H 09/28/19 06:48 Pulse Ox 97 09/25/19 22:08 Results & Data Current Inpatient Medications Current Inpatient Medications: Current Inpatient Medications Acetaminophen (Tylenol) 650 mg PO Q4H PRN PRN Reason: Headache or Minor Fever Stop: 10/25/19 21:21 Al Hydrox/Mg Hydrox/Simethicone (Maalox) 30 ml PO Q4H PRN PRN Reason: GI Upset Stop: 10/25/19 21:21 Last Admin: 09/26/19 21:47 Dose: 30 ml Documented by: Bismuth Subsalicylate (Kaopectate) 15 ml PO PRN PRN PRN Reason: Loose Stool Stop: 10/25/19 21:21 Haloperidol (Haldol) 10 mg PO Q4H PRN PRN Reason: psychosis Stop: 10/25/19 22:01 Hydroxyzine HCl (Vistaril) 50 mg PO HSZ PRN PRN Reason: Insomnia Stop: 10/25/19 21:21 Last Admin: 09/26/19 22:18 Dose: 50 mg Documented by: Hydroxyzine HCl (Vistaril) 25 mg PO Q4H PRN PRN Reason: Anxiety Stop: 10/25/19 21:21 Lamotrigine (Lamictal) 50 mg PO DAILY NARAYAN Stop: 10/26/19 08:59 Last Admin: 09/28/19 08:24 Dose: 50 mg Documented by: Lorazepam (Ativan) 1 mg PO Q4H PRN PRN Reason: psychosis Stop: 10/25/19 21:21 Last Admin: 09/26/19 01:18 Dose: 1 mg Documented by: Magnesium Hydroxide (Milk Of Magnesia) 30 ml PO DAILY PRN PRN Reason: Constipation Stop: 10/25/19 21:21 Miscellaneous (Remove Nicoderm Patch) 1 ea N/A DAILY@0859 [facility] Stop: 10/27/19 08:58 Last Admin: 09/28/19 08:26 Dose: Not Given Documented by: Nicotine (Nicoderm Cq) 14 mg TD QAM [facility] Stop: 10/26/19 08:59 Last Admin: 09/28/19 08:26 Dose: Not Given Documented by: Risperidone (Risperdal) 1 mg PO BID [facility] Stop: 10/26/19 10:59 Last Admin: 09/28/19 08:26 Dose: Not Given Documented by: Sodium Chloride ([place] Nasal) 1 - 2 sprays NA PRN PRN PRN Reason: Nasal Dryness/Congestion Stop: 10/25/19 21:21 Temazepam (Restoril) 22.5 mg PO HSZ PRN PRN Reason: Insomnia Stop: 10/27/19 17:03 Last Admin: 09/27/19 22:12 Dose: 22.5 mg Documented by: Mental Health & Subst Abuse Tx Therapist Name of Therapist: None, not willing Loan Processing Supervisor Name of Loan Processing Supervisor: Housing Transitions, Briella Walk Post Discharge Appointments Primary Care Physician Name Of Family Doctor: Saundra Justin
[2019-09-29] MEDS: TEMAZEPAM 7.5 MG CAPSULE PO PRN ×2 (00:55→21:51)
[2019-09-29] MEDS: lamoTRIgine 25 MG TAB PO SCH (08:57)
[2019-09-29] MEDS: risperiDONE 1 MG TABLET PO SCH ×2 (08:58→21:53)
[2019-09-29] MEDS: NICOTINE 14 MG/24 HR PATCH TD SCH (08:58)
--- NOTE | 2019-09-29 10:42 | Psychiatric Progress Note ---
Date of Service September 29, 2019 Impression / Recommendations Impression This patient carries a diagnosis of chronic schizophrenia. He voices a poorly systematized paranoid delusions, appears to be experiencing auditory hallucinations (although he denies this), and has very limited insight into his illness, although he does acknowledge that he does need psychiatric treatment. The record indicates that, in the past, when the patient has been off psychiatric medications he can become physically aggressive, and the patient does acknowledge that, in fact, prior to admission he had stopped taking his medications. However, thus far he's maintained behavioral control and taking prescribed medications, with exception of risperidone. (1) Chronic paranoid schizophrenia: 09/26 -longstanding schizophrenia with limited medication adherence. -Was apparently hospitalized at [place] 2 months ago and was discharged on haloperidol and lamotrigine. He was noncompliant with the haloperidol, but is willing to continue lamotrigine so we will continue 50 mg daily. -He is also willing to continue temazepam 15 mg at bedtime, so will continue that as well. -He is refusing quetiapine (had been prescribed last week by his outpatient psychiatrist after he agreed to take it, but now states he never took it). He had previously been on risperidone, so will order 1 mg twice daily in the hopes that he will consider retrying it. He is unwilling to engage in a discussion of different antipsychotic medications, stating that he does not have schizophrenia and does not need an antipsychotic. Ideally, he would be on a long-acting injectable antipsychotic, given his history of chronic nonadherence, but he is unwilling for that as well. If he is willing to take the risperidone, we will need to check fasting lipid profile and glucose. -Patient is on a 302 involuntary commitment. We will continue to gather information toward the need for ongoing commitment. Based on what we currently know, I do not believe he meets criteria for 303 involuntary commitment. Although he is clearly psychotic and irritable, has poor self-care/hygiene, and his apartment is dirty and unkempt, I do not see evidence that his decompensated mental illness places him at imminent risk of , disability, or serious injury within 30 days. He states he has an apartment which he plans to return, and access card with which he buys food, and is willing to take some medications and follow-up with his outpatient psychiatrist. We will need to get information from his housing transitions senior case manager, who may have additional pertinent information regarding his housing. -Care coordinated with outpatient psychiatrist, Dr. Campbell, today. 09/27 -The patient continues to demonstrate psychotic symptoms, of a paranoid nature. However, at least one instance he was able to "rethink" a paranoid delusional belief when it was questioned by the examiner, and he changed his stated belief to a non-paranoid explanation for a related event. -He steadfastly refuses to consider any antipsychotic medication, and appears to be confabulating vague side effects every time any such medication (first or second generation antipsychotic) is mentioned to him. He explains this refusal in terms of saying that he knows that the medications are for "crazy people" and he asserts that he has no need for such medications because he is "not crazy." -The patient's associations loosen with the lack of external structure, but he can be reorganized with external structure. At times, his speech becomes somewhat rapid, and there may be an affective component to the patient's p resentation. He also tells us that he feels that lamotrigine is "the only [psychiatric] medication that he is ever taken" (apart from various benzodiazepines) that has worked." He admits that he also has stopped taking lamotrigine prior to admission, but says that he does not have a good explanation for that other than he "sometimes" just stops medications. -A concern reported at the time of the patient's admission to the hospital was that the patient was neglecting self-care, and the patient acknowledges that he had allowed his apartment, and himself, to become "kind of messy." He externalizes responsibility for this circumstance in terms of an inability to purchase cleaning supplies due to financial limitations, and a similar inability to regularly wash or purchase clothes. When asked why a lack of cleaning supplies would prevent him from picking up clutter in his apartment, or for wiping up spills with a cloth, he shrugged and said, "I guess it would not." However, in the unit, the patient has been generally attending to his own physical needs. He is also been eating well. -The patient also has a reported history of explosive or aggressive behaviors when not taking psychiatric medications. However, the patient has not demonstrated any such behaviors on the unit since admission, is generally pleasant and cooperative, and, in fact, is agreeing to take selective medica tions, namely temazepam and risperidone. -We do not find that medications over objection would be clinically appropriate at this time, given the patient's insistence that he will refuse all antipsychotic medications in the community, even if they are given to him here in the hospital. He has had multiple trials of antipsychotic medications in the past, and has a long history of nonadherence. (2) Noncompliance with medications: 09/26 -continue to encourage him to consider long-acting injectable antipsychotic, which would be beneficial given his chronic nonadherence with antipsychotic medication. 09/27 -The patient confirms that he has a long history of nonadherence with psychiatric medications. He refuses oral antipsychotic medications at this t liudmila, and we are continuing to convince the patient that these medications are are necessary to "treat [his] nerves," and to "keep [him] out of the hospital." So far, these efforts have been unsuccessful. We do not feel that medication over objection would be appropriate at this time. The patient is also refusing Depo injectable forms of the medications in question. (3) Hypertension: 09/26 -history of hypertension, not currently prescribed medication. Blood pressure borderline elevated 153/80. Refer to PCP, Dr. Segundo, for outpatient follow-up. Risk Factors Assessment Male: Yes : Yes Do You Have Access To A Gun?: No Health Problems: No Mental Health Diagnoses: Yes Substance Use Disorders: No Previous Attempt: No Family History of Suicide: No Previous Psychiatric Hospitalization: Yes Hopelessness: No Smoker: Yes Protective Factors Assessment Orthodoxy Beliefs: No : No Responsible for Young Children: No Employed: No Stable Relationships: No Supportive Family: No Interval History Chief Complaint "you are not my doctor, we're done". Review of Systems Sleep Information Total Hours of Sleep: 3 Meal Information Percent Meal Consumed - Breakfast: 100 Percent Meal Consumed - Lunch: 100 Percent Meal Consumed - Dinner: 100 Subjective Subjective Patient was seen & assessed and interval progress reviewed with nursing. Staff continue to report that he is cooperative and without anger outbursts/aggression. He is taking lamictal and took scheduled hs meds (including Risperdal) last night though he remains clear that he doesn't want this medication this am. 302 to tomorrow. Physical Exam Psychiatric uncooperative with assessment, appears to be responding to internal stimuli as talking to self while eating breakfast. Gait steady. Perseverates on what he determines is task at hand. Denies "everything". Vital Signs (Past 24 Hours) Last Vital Signs Temp 36.3 C L 09/29/19 06:46 Pulse 69 09/29/19 06:46 Resp 20 09/29/19 06:46 BP 138/86 09/29/19 06:46 Pulse Ox 97 09/25/19 22:08 Results & Data Current Inpatient Medications Current Inpatient Medications: Current Inpatient Medications Acetaminophen (Tylenol) 650 mg PO Q4H PRN PRN Reason: Headache or Minor Fever Stop: 10/25/19 21:21 Al Hydrox/Mg Hydrox/Simethicone (Maalox) 30 ml PO Q4H PRN PRN Reason: GI Upset Stop: 10/25/19 21:21 Last Admin: 09/26/19 21:47 Dose: 30 ml Documented by: Bismuth Subsalicylate (Kaopectate) 15 ml PO PRN PRN PRN Reason: Loose Stool Stop: 10/25/19 21:21 Haloperidol (Haldol) 10 mg PO Q4H PRN PRN Reason: psychosis Stop: 10/25/19 22:01 Hydroxyzine HCl (Vistaril) 50 mg PO HSZ PRN PRN Reason: Insomnia Stop: 10/25/19 21:21 Last Admin: 09/26/19 22:18 Dose: 50 mg Documented by: Hydroxyzine HCl (Vistaril) 25 mg PO Q4H PRN PRN Reason: Anxiety Stop: 10/25/19 21:21 Lamotrigine (Lamictal) 50 mg PO DAILY NARAYAN Stop: 10/26/19 08:59 Last Admin: 09/29/19 08:57 Dose: 50 mg Documented by: Lorazepam (Ativan) 1 mg PO Q4H PRN PRN Reason: psychosis Stop: 10/25/19 21:21 Last Admin: 09/26/19 01:18 Dose: 1 mg Documented by: Magnesium Hydroxide (Milk Of Magnesia) 30 ml PO DAILY PRN PRN Reason: Constipation Stop: 10/25/19 21:21 Miscellaneous (Remove Nicoderm Patch) 1 ea N/A DAILY@0859 [facility] Stop: 10/27/19 08:58 Last Admin: 09/29/19 08:58 Dose: Not Given Documented by: Nicotine (Nicoderm Cq) 14 mg TD QAM [facility] Stop: 10/26/19 08:59 Last Admin: 09/29/19 08:58 Dose: Not Given Documented by: Risperidone (Risperdal) 1 mg PO BID [facility] Stop: 10/26/19 10:59 Last Admin: 09/29/19 08:58 Dose: Not Given Documented by: Sodium Chloride ([place] Nasal) 1 - 2 sprays NA PRN PRN PRN Reason: Nasal Dryness/Congestion Stop: 10/25/19 21:21 Temazepam (Restoril) 22.5 mg PO HSZ PRN PRN Reason: Insomnia Stop: 10/27/19 17:03 Last Admin: 09/29/19 00:55 Dose: 22.5 mg Documented by: Mental Health & Subst Abuse Tx Therapist Name of Therapist: None, not willing Animal Keeper Name of Animal Keeper: Housing Transitions, Briella Walk Post Discharge Appointments Primary Care Physician Name Of Family Doctor: Saundra Justin
[2019-09-30] MEDS: NICOTINE 14 MG/24 HR PATCH TD SCH (07:41)
[2019-09-30] MEDS: lamoTRIgine 25 MG TAB PO SCH (07:41)
[2019-09-30] MEDS: risperiDONE 1 MG TABLET PO SCH (07:42)
--- NOTE | 2019-09-30 09:31 | Discharge Summary ---
Date of Service September 30, 2019 History of Present Illness The patient is well-known to me (Dr. Perez) from previous hospitalizations; he was last on our unit for 37 days , was on a 304 involuntary commitment, and was discharged on Risperdal Consta. He was homeless at the time, but was working with [facility] to find permanent housing. He was seen on the psychiatric consult service in 08/2017 when he was hospitalized medically for influenza we were asked to give recommendations regarding his psychotropic medications. He was taking risperidone and temazepam, and recommendations were to continue these and resume outpatient treatment with his psychiatrist, Dr. Campbell at the [facility]. He presented to the ER yesterday, 09/25/2019, on a 302 warrant. Petition completed by his Housing Transitions lining caser and states she "walked into Diego's apartment on 09/24/2019 to visit. Diego's apartment was in disarray, there was trash all over the floor, liquid on his tile in his kitchen. Diego's bowling alley attendant was there and him was arguing with the bowling alley attendant and I about his apartment. Diego began to argue about having cleaning supplies, which he showed me bottles and the bottles were empty. To him argued they weren't empty. Diego began to become aggressive. Diego advised me he was fine then advised me his bank card from [employer] was not working and that the government "stole his money." I observed that Diego had a wet antonio on the back of his jeans, the antonio was pretty big and appeared to be pee. Diego's doctor also called me on 09/23/2019 to notify me that Diego was not taking his meds. Diego becomes aggressive when he isn't taking his meds so it appeared he hadn't taken them. Due to Diego's aggression the bowling alley attendant and I had to leave Diego's apartment. Diego has a history of mental health and is diagnosed with schizophrenia." In the ER, the patient reported he was not taking his medication because someone is poisoning them. He said the government was stealing his money and watching him, and people in the hospital are trying to get him because they think he is a spy. He refused to provide a urine sample, and refused to consider voluntary treatment, stating he did not need to be in the hospital. He later said that he needed to get things in his life together, including medical benefits and finances, and was willing to sign in voluntarily. When the liaison nurse met with him, he was uncooperative, would not answer questions, and declined voluntary treatment, so was ultimately admitted on a 302 involuntary commitment. He refused to take Haldol and Ativan in the ER when they were offered. He did except Lorazepam when he arrived on the unit, and was up several times overnight, coming out for snacks and drinks. This morning, he was seen in his room, where he is seated on his bed awake. He says he is here because "I was gatito loud, the way I talked was gatito, showed I was feeling unusual, she thought maybe indicated I needed help. She knew I wasn't taking my medicine." He says that he ran out of his medications and that is why he was not taking them, but when reviewed his external med history and advised that he just filled all of his psychotropic prescriptions 10 days ago, he says he "gave some of them away to a girl who was dying from some strange disease." He says he is only willing to take temazepam and lamotrigine, which he calls "Lamotrine," and becomes irritated when attempting to clarify what medi cation he is talking about, stating "when the O in trone is fully broken, it says I." He repeatedly states he does not want to take an antipsychotic medication, as he does not need it, and does not believe schizophrenia is a real thing. He is adamantly opposed to the idea of a long-acting injectable antipsychotic. He says "I'm not paranoid, I'm tensed up, my thinking is too fast, I can't keep on a situation for too long a time without it dropping off." He has difficulty identifying which medications he has been prescribed recently, stating "it keeps changing, can't get me the right ones." He says he was told to "take the Haldol for a few days, then drop it," and does not want to continue taking it. He says he never took Seroquel (although filled the prescription 09/17/2019), stating "why would I take that? It knocks you out too hard." He says he would be interested in some Ritalin if I would give him that, but otherwise does not want any new medications. He denies hallucinations, suicidal thoughts, and homicidal thoughts. He denies concerns for his safety and any concerns about his apartment, stating he will return there at discharge. He states that he is able to get food with his access card, but that another one of his credit cards has not been working, so he has not been able to buy cleaning supplies, which is why his apartment is dirty. He says he does not have a therapist or a mental health lining caser, and does not feel he needs these services. Spoke with Dr. Campbell who had not seen the patient from 2018 - 09/16/2019. He missed multiple appointments, and had been admitted to [facility]. In the past, he has only been willing to take moderate doses of risperidone, as well as lorazepam and temazepam, but when he was discharged from [facility] he was on haloperidol and lamotrigine. When she saw him on 09/16/2019, he had not been on an antipsychotic for at least a month, and was irritable, psychotic, paranoid, was concerned that the person who comes in to clean his apartment was bugging his apartment and didn't trust him, reported conspiracy theories involving protestant, ideas of reference stating the way the light reflected off objects had special reference. He was very loose in his associations. He denies SI and HI, and was unwilling for voluntary hospitalization, but did not meet criteria for involuntary treatment. Physical Exam Mental Examination see H&P and DOD assessment. Vital Signs (Past 24 Hours) Last Vital Signs Temp 36.6 C 09/30/19 06:46 Pulse 83 09/30/19 06:47 Resp 18 09/30/19 06:46 BP 138/95 09/30/19 06:47 Pulse Ox 97 09/25/19 22:08 Principal Diagnosis schizophrenia Psychiatric Data see daily care summary. Patient's safety was maintained on locked inpatient unit. He was independent with ADLS and continued to refuse antipsychotic medication. Drs. Perez and Alexandrea evaluated patient early in his stay and discussed options with his outpatient care provider Dr. Campbell with group decision making that he did not meet criteria for extended involuntary commitment nor for meds over objection. He was monitored through the weekend and continued his temazepam and lamictal. He was not particularly cooperative with meeting 1 on 1 with sap functional analyst psychiatrist but was without agitation or aggression. Case was re- reviewed with Dr. ePrez this am and in agreement that he no longer meets criteria for involuntary commitment. His med regimen and concern for hygiene outside of the hospital are less than ideal but he is not an immediate danger to himself or others in community and in that sense is stable for return to outpatient level of care. Day of Discharge Assessment alert, talks to himself during meal but in no distress, excited for discharge. Thoughts are concrete but able to express his needs. Affect remains blunted but he denies depression, SI/HI/bennett. No delusions are expressed. Insight and judgement are seemingly his baseline. Transition of Care Transition Of Care Record: was reviewed with the patient (though limited interest in contents of the records) Advance Directives Advance Directives Information Provided: Yes Advance Directives: No Mental Health Advance Directive: No Advance Directives on File: No Living Will: No Power of Beverage Specialist: No Advance Directives Reason:: Declines as Mental Health Visit. Risk Factors Assessment Male: Yes : Yes Do You Have Access To A Gun?: No Health Problems: No Mental Health Diagnoses: Yes Substance Use Disorders: No Previous Attempt: No Family History of Suicide: No Previous Psychiatric Hospitalization: Yes Hopelessness: No Smoker: Yes Protective Factors Assessment Latter Day Beliefs: No : No Responsible for Young Children: No Employed: No Stable Relationships: No Supportive Family: No Tobacco Cessation at Discharge Tobacco Cessation Medication Prescribed at Discharge: Not Applicable/Non-Smoker Total Time Total Time Spent: Greater Than 30 Minutes Total Time Includes: Examination of the patient, Discharge Planning, Medication Reconciliation and As well as (consultation with Dr. Perez.) Discharge Data Lab Results 09/25/19 09/25/19 09/25/19 11:23 11:23 11:24 WBC 10.84 H RBC 5.11 Hgb 15.5 Hct 46.1 MCV 90.2 MCH 30.3 MCHC 33.6 RDW Std Deviation 48.9 H RDW Coeff of Demond 14.8 H Plt Count 280 MPV 10.4 Immature Gran % (Auto) 0.5 Neut % (Auto) 76.6 Lymph % (Auto) 14.8 Power % (Auto) 7.0 Eos % (Auto) 0.7 Baso % (Auto) 0.4 Immature Gran # (Auto) 0.05 H Neut # (Auto) 8.31 H Lymph # (Auto) 1.60 Power # (Auto) 0.76 H Eos # (Auto) 0.08 Baso # (Auto) 0.04 Sodium 141 Potassium 5.0 Chloride 110 H Carbon Dioxide 26 Anion Gap 5.0 BUN 29 H Creatinine 1.13 Est Cr Clr Drug Dosing 62.6 Est GFR ( Amer) 77.0 Est GFR (Non-Af Amer) 66.4 BUN/Creatinine Ratio 25.5 H Glucose 93 Calcium 9.5 Total Bilirubin 0.4 AST 15 ALT 18 Alkaline Phosphatase 42 L Total Protein 7.2 Albumin 4.1 Globulin 3.1 Albumin/Globulin Ratio 1.3 TSH 1.890 Urine Color Urine Appearance Urine pH Ur Specific Dana Urine Protein Urine Glucose (UA) Urine Ketones Urine Blood Urine Nitrite Urine Bilirubin Urine Urobilinogen Ur Leukocyte Esterase Salicylates 1.7 L Urine Opiates Screen Ur Methadone, Qual Acetaminophen < 2 L Urine Barbiturates Ur Phencyclidine (PCP) U Amphetamin/Meth Scrn MDMA (Ecstasy) Screen U Benzodiazepines Scrn Ur Cocaine Metabolite U Marijuana (THC) Screen Ethyl Alcohol mg/dL 09/25/19 09/25/19 09/25/19 11:24 16:50 16:50 WBC RBC Hgb Hct MCV MCH MCHC RDW Std Deviation RDW Coeff of Demond Plt Count MPV Immature Gran % (Auto) Neut % (Auto) Lymph % (Auto) Power % (Auto) Eos % (Auto) Baso % (Auto) Immature Gran # (Auto) Neut # (Auto) Lymph # (Auto) Power # (Auto) Eos # (Auto) Baso # (Auto) Sodium Potassium Chloride Carbon Dioxide Anion Gap BUN Creatinine Est Cr Clr Drug Dosing Est GFR ( Amer) Est GFR (Non-Af Amer) BUN/Creatinine Ratio Glucose Calcium Total Bilirubin AST ALT Alkaline Phosphatase Total Protein Albumin Globulin Albumin/Globulin Ratio TSH Urine Color Yellow Urine Appearance Clear Urine pH 7.0 Ur Specific Dana 1.025 Urine Protein Negative Urine Glucose (UA) Negative Urine Ketones Trace H Urine Blood Negative Urine Nitrite Negative Urine Bilirubin Negative Urine Urobilinogen Negative Ur Leukocyte Esterase Negative Salicylates Urine Opiates Screen Neg Ur Methadone, Qual Neg Acetaminophen Urine Barbiturates Neg Ur Phencyclidine (PCP) Neg U Amphetamin/Meth Scrn Neg MDMA (Ecstasy) Screen Neg U Benzodiazepines Scrn Neg Ur Cocaine Metabolite Neg U Marijuana (THC) Screen Neg Ethyl Alcohol mg/dL < 3.0 Hospital Course (1) Chronic paranoid schizophrenia: 09/26 -longstanding schizophrenia with limited medication adherence. -Was apparently hospitalized at [facility] 2 months ago and was discharged on haloperidol and lamotrigine. He was noncompliant with the haloperidol, but is willing to continue lamotrigine so we will continue 50 mg daily. -He is also willing to continue temazepam 15 mg at bedtime, so will continue that as well. -He is refusing quetiapine (had been prescribed last week by his outpatient psychiatrist after he agreed to take it, but now states he never took it). He had previously been on risperidone, so will order 1 mg twice daily in the hopes that he will consider retrying it. He is unwilling to engage in a discussion of different antipsychotic medications, stating that he does not have schizophrenia and does not need an antipsychotic. Ideally, he would be on a long-acting injectable antipsychotic, given his history of chronic nonadherence, but he is unwilling for that as well. If he is willing to take the risperidone, we will need to check fasting lipid profile and glucose. -Patient is on a 302 involuntary commitment. We will continue to gather information toward the need for ongoing commitment. Based on what we currently know, I do not believe he meets criteria for 303 involuntary commitment. Although he is clearly psychotic and irritable, has poor self-care/hygiene, and his apartment is dirty and unkempt, I do not see evidence that his decompensated mental illness places him at imminent risk of , disability, or serious injury within 30 days. He states he has an apartment which he plans to return, and access card with which he buys food, and is willing to take some medications and follow-up with his outpatient psychiatrist. We will need to get information from his housing transitions lining caser, who may have additional pertinent inf ormation regarding his housing. -Care coordinated with outpatient psychiatrist, Dr. Campbell, today. 09/27 -The patient continues to demonstrate psychotic symptoms, of a paranoid nature. However, at least one instance he was able to "rethink" a paranoid delusional belief when it was questioned by the examiner, and he changed his stated belief to a non-paranoid explanation for a related event. -He steadfastly refuses to consider any antipsychotic medication, and appears to be confabulating vague side effects every time any such medication (first or second generation antipsychotic) is mentioned to him. He explains this refusal in terms of saying that he knows that the medications are for "crazy people" and he asserts that he has no need for such medications because he is "not crazy." -The patient's associations loosen with the lack of external structure, but he can be reorganized with external structure. At times, his speech becomes somewhat rapid, and there may be an affective component to the patient's presentation. He also tells us that he feels that lamotrigine is "the only [psychiatric] medication that he is ever taken" (apart from various benzodiazepines) that has worked." He admits that he also has stopped taking lamotrigine prior to admission, but says that he does not have a good explanation for that other than he "sometimes" just stops medications. -A concern reported at the time of the patient's admission to the hospital was that the patient was neglecting self-care, and the patient acknowledges that he had allowed his apartment, and himself, to become "kind of messy." He externalizes responsibility for this circumstance in terms of an inability to purchase cleaning supplies due to financial limitations, and a similar inability to regularly wash or purchase clothes. When asked why a lack of cleaning supplies would prevent him from picking up clutter in his apartment, or for wiping up spills with a cloth, he shrugged and said, "I guess it would not." However, in the unit, the patient has been generally attending to his own physical needs. He is also been eating well. -The patient also has a reported history of explosive or aggressive behaviors when not taking psychiatric medications. However, the patient has not demonstrated any such behaviors on the unit since admission, is generally pleasant and cooperative, and, in fact, is agreeing to take selective medications, namely temazepam and risperidone. -We do not find that medications over objection would be clinically appropriate at this time, given the patient's insistence that he will refuse all antipsychotic medications in the community, even if they are given to him here in the hospital. He has had multiple trials of antipsychotic medications in the past, and has a long history of nonadherence. (2) Noncompliance with medications: 09/26 -continue to encourage him to consider long-acting injectable antipsychotic, which would be beneficial given his chronic nonadherence with antipsychotic medication. 09/27 -The patient confirms that he has a long history of nonadherence with psychiatric medications. He refuses oral antipsychotic medications at this time, and we are continuing to convince the patient that these medications are are necessary to "treat [his] nerves," and to "keep [him] out of the hospital." So far, these efforts have been unsuccessful. We do not feel that medication over objection would be appropriate at this time. The patient is also refusing Depo injectable forms of the medications in question. (3) Hypertension: 09/26 -history of hypertension, not currently prescribed medication. Blood pressure borderline elevated 153/80. Refer to PCP, Dr. Segundo, for outpatient follow-up. Mental Health & Subst Abuse Tx Psychiatrist Name of Psychiatrist: Dr. Campbell, [facility] Psychiatrist's Date of Appointment with Psychiatrist: 10/21/19 Time of Appointment with Psychiatrist: 9:30 Psychiatric Appointment Comment: They will call you if an earlier appt becomes available Therapist Name of Therapist: None, not willing Rubber Goods Finisher Name of Rubber Goods Finisher: Housing Transitions, Briella Walk Post Discharge Appointments Primary Care Physician Name Of Family Doctor: Dr. Segundo [facility] Smoking Cessation Counseling Tobacco Cessation Medication Prescribed at Discharge: Not Applicable/Non-Smoker Contact Information Discharge Phone Number: none Discharge Address[address] [address] [place], [place] [address]b[place], [facility], [place] [address] Discharge Plan Discharge Items Patient Disposition: Home - Self-Care Reason For Visit: PSYCHOSIS Discharge Diagnosis: schizophrenia Activity: Resume your previous activity Non-emergency contact: Primary Care Provider and Psychiatrist Call non-emergency contact if: you have any medication questions Follow-up/Referrals: Trip Segundo MD [Primary Care Provider] - Diet: Regular Addtl Attending Provider Instructions: SPECIAL CARE INSTRUCTIONS: 1. Follow through with your scheduled aftercare appointments. If unable to keep an appointment, please call to reschedule. 2. Take your medication only as prescribed. Medication should not be changed or stopped without the approval of your doctor. In the event of worsening symptoms or concerns about side effects, contact your doctor immediately. 3. Utilize new healthy coping skills, anger management skills, and stress management skills learned during your hospitalization. Journal feelings and process them with a support person. Identify stressors or situations that may result in relapse, deterioration or inappropriate behaviors and develop a plan to deal with those issues. 4. If your coping skills are ineffective and you are in crisis, contact your outpatient providers for direction. If unable to reach your providers, please call the CAN HELP LINE AT or go to the closest Emergency Room. 5. Avoid alcohol and un-prescribed drugs. 6. You have been provided with the Mental Health Advance Directives Pamphlet for your review. AFTERCARE APPOINTMENTS: * Please call your insurance company prior to your scheduled appointment to confirm your aftercare providers are covered. Take your insurance information to your appointments. WHO TO CALL AND WHEN: Medical Emergencies: For questions or emergencies related to your hospital stay, please contact the Inpatient Behavioral Health Unit at [phone]. A door worker is on-call 20/03 for the Behavioral Health Unit for emergencies At any time you feel your situation is an emergency, you may also call 911 immediately. Your Doctors Instructions noted above were prepared by provider Milana Altamirano MD. Pending Studies at Discharge: No Stand-Alone Forms: My [facility], Smoking Cessation, Suicide Prevention Resources Medications and DC Order Prescriptions: Continued lamotrigine 25 mg tablet 50 mg PO DAILY RF: 0 temazepam 15 mg capsule 15 mg PO HS RF: 0 Discontinued haloperidol 5 mg tablet 5 mg PO BID RF: 0 quetiapine 200 mg tablet 200 mg PO HS RF: 0 Discharge Orders: Discharge Order (Routine); Ordered 09/30/19 Ordered By: Milana Altamirano Admission Data Admit Date/Time: 09/25/19 21:22 Attending Provider: Aliyah Perez Admit Provider: Aliyah Perez Primary Care Provider: Trip Segundo Coding Level of Care Code 62688 D/C day mgmt > 30 min Diagnoses Chronic paranoid schizophrenia F20.0 Noncompliance with medications Z91.14 Hypertension I10
== END 2019-09-30 11:27 | disposition home or self-care (01) | DRG 885 ==
LOC: ED 10:37 → 3S 21:22

== ENCOUNTER 2019-10-15 14:43 | Inpatient (IN) ==
[2019-10-15] MEDS ORDERED: HALOPERIDOL LACTATE 5 MG/ML 1 ML VIAL IM STA (15:24)
[2019-10-15] MEDS ORDERED: HALOPERIDOL LACTATE 5 MG/ML 1 ML VIAL ONE (15:24)
[2019-10-15] MEDS ORDERED: LORazepam 2 MG/ML VIAL (IM USE) IM STA (15:24)
[2019-10-15] MEDS ORDERED: DiphenhydrAMINE HCL 50 MG/ML VIAL IM STA (15:24)
[2019-10-15] MEDS ORDERED: DiphenhydrAMINE HCL 50 MG/ML VIAL ONE (15:25)
[2019-10-15] MEDS ORDERED: LORazepam 2 MG/ML VIAL (IM USE) ONE (15:25)
[2019-10-15 15:37] LABS: Basophils # (auto) 0.04 K/uL (0-0.2); Basophils % (auto) 0.4 %; Eosinophils # (auto) 0.14 K/uL (0-0.5); Eosinophils % (auto) 1.2 %; Hematocrit (blood only) 44.9 % (42-52); Hemoglobin 15.1 g/dL (14.0-18.0); Immature Granulocytes # (auto) 0.03 K/uL (0.00-0.02); Immature Granulocytes % (auto) 0.3 %; Lymphocytes # (auto) 2.42 K/uL (1.2-3.4); Lymphocytes % (auto) 21.6 %; Mean Corpuscular Hemoglobin 30.4 pg (25-34); Mean Corpuscular Hgb Conc 33.6 g/dL (32-36); Mean Corpuscular Volume 90.5 fL (80-100); Mean Platelet Volume 10.1 fL (7.4-10.4); Monocytes # (auto) 1.14 K/uL (0.11-0.59); Monocytes % (auto) 10.2 %; Neutrophils # (auto) 7.44 K/uL (1.4-6.5); Neutrophils % (auto) 66.3 %; Platelet Count 316 K/uL (130-400); RDW Coefficient of Variation 14.5 % (11.5-14.5); Red Blood Count 4.96 M/uL (4.7-6.1); White Blood Count 11.21 K/uL (4.8-10.8)
[2019-10-15 15:56] LABS: Albumin Level 3.9 gm/dl (3.4-5.0); BUN Creatinine Ratio 15.3 (10-20); Creatinine Clr Calc Pharmacy 48.4 ml/min; Est GFR (African American) 56.5; Est GFR (Non-African American) 48.7; Potassium 4.1 mmol/L (3.5-5.1)
[2019-10-15 16:06] LABS: Albumin Globulin Ratio 1.1 (0.9-2); Bilirubin,Total 0.6 mg/dl (0.2-1); Globulin 3.4 gm/dl (2.5-4.0); Thyroid Stimulating Hormone 2.57 uIu/ml (0.300-4.500); Total Protein 7.3 gm/dl (6.4-8.2)
[2019-10-15 16:11] LABS: Acetaminophen < 2 ug/ml (10-30); Salicylate < 1.7 mg/dl (2.8-20)
--- NOTE | 2019-10-15 18:38 | Emergency Department Note ---
Entered by Cassidy Wei acting as a scribe for History of Present Illness General Chief complaint: Mental Health Evaluation Time Seen by Provider: 10/15/19 15:00 Source: patient Limitations: altered mental status History of Present Illness Provider complaint: Medication Noncompliance Onset (ago): day(s) 1 Location: head Associated symptoms: + denies other symptoms (AVH) The patient is a 69 year old male who presents to the Emergency Room with complaints of medication noncompliance starting yesterday. The patient was sent over by his housing facility because he has not been taking care of himself and has become increasingly aggressive. According to the patient's housing facility the patient accused the staff of having his access card and he became aggressive. It was later discovered that the patient returned to his apartment and destroyed it. There is broken glass scattered on the apartment, food thrown around the floor, and the patient left his sink overflowing. The patient's neighbors note that he has been talking to himself more frequently at odd hours of the night. When discussing with the patient he states that he was brought to the ED for no reason and claims to be taking his medication and that he does not trust the medication at our ED. When asked what year it was the patient respond ed 1970 and denies that he is hearing voices. Home Medications Home Medications Medication Instructions Recorded Confirmed Type benztropine 0.5 mg PO DAILY 10/15/19 10/15/19 History haloperidol 5 mg PO DAILY 10/15/19 10/15/19 History lamotrigine 25 mg PO DAILY 10/15/19 10/15/19 History quetiapine 200 mg PO DAILY 10/15/19 10/15/19 History temazepam 15 mg PO DAILY 10/15/19 10/15/19 History Allergies Allergy/AdvReac Type Severity Reaction Status Date / Time No Known Allergies Allergy Verified 10/15/19 15:03 Past Med/Surg History Medical History Bronchitis (Acute) Chronic obstructive pulmonary disease Chronic paranoid schizophrenia (Chronic Unknown) Dementia BOSCH (dyspnea on exertion) History of leukemia Hypertension Non-compliant patient NSVT (nonsustained ventricular tachycardia) IN SETTING OF INFLUENZA AUG 2017 - 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 and A total of 10 systems reviewed and were otherwise negative Physical Exam Vital Signs Vital Signs - 24 hr 10/15/19 15:00 10/15/19 16:50 10/15/19 18:50 Temperature 37 C Temperature Source Oral Pulse Rate 114 H Pulse Rate [Finger] 102 H 109 H Respiratory Rate 18 18 18 Respiratory Effort / Characteristics Non-Labored Respiratory Depth Normal Blood Pressure 158/102 H Blood Pressure [Right Arm] 176/112 H 185/108 H Blood Pressure Mean 120 Blood Pressure Mean [Right Arm] 133 133 Pulse Oximetry 94 94 96 Oxygen Delivery Method Room Air Room Air Room Air Sepsis Recent Fever Within 48 Hours No Sepsis Action Taken by Nursing No Action Required HENT: Exam performed. - Head: Normocephalic and atraumatic. - Right Ear: External ear normal. No mastoid tenderness. - Left Ear: External ear normal. No mastoid tenderness. - Mouth/Throat: The oropharynx is clear and moist. No trismus in the jaw. No dental abscesses or uvula swelling. No oropharyngeal exudate or tonsillar abscesses. EYES: Conjunctivae and EOM are normal. Pupils are equal, round, and reactive to light. Right eye exhibits no discharge. Left eye exhibits no discharge. No scleral icterus. NECK: Normal range of motion. Neck supple. No JVD present. No spinous process tenderness present. No carotid bruit present. No rigidity. No tracheal deviation and normal range of motion present. No Brudzinski's sign and no Kernig's sign noted. CV: Normal rate, regular rhythm, normal heart sounds and intact distal pulses. There is no peripheral edema. Palpable radial pulses bue. PULM/CHEST: Effort normal and breath sounds normal. No respiratory distress. No stridor. He has no wheezes. He has no rales. - Chest Wall: He exhibits no tenderness. ABD: The abdomen is soft. Bowel sounds are normal. He has no distension. No mass is present. There is no tenderness. There is no rebound, no guarding, no Vivar's sign and no tenderness at McBurney's point. Rovsig negative. MUSC/SKEL: Normal range of motion. There is no peripheral edema, tenderness or deformity. LYMPH: No cervical adenopathy. NEURO: Motor and sensation grossly intact. SKIN: Skin is warm and dry. He is not diaphoretic. PSYCH: Bizarre affect. Tangential thoughts. Auditory hallucinations. Course Course 150: Past medical records reviewed. The patient was evaluated in room A05. A complete history and physical exam was performed. 2022: Patient was medically cleared and 302 signed. Patient repeatedly became agitated while he was in the emergency department and had to be placed in restraints twice however the patient was able to be verbally de-escalated after being placed in restraints. Patient will be signed out to Dr. Garcia. Medical Decision Making Medical Records Attestation: I reviewed the patient's medical records. Home Medications Current Medication List: was personally reviewed by me Laboratory Data Attestation: I reviewed the patient's lab results. Result diagrams: 10/15/19 15:28 10/15/19 15:27 Lab Results 10/15/19 10/15/19 10/15/19 Range/Units 15:27 15:27 15:27 WBC (4.8-10.8) K/uL RBC (4.7-6.1) M/uL Hgb (14.0-18.0) g/dL Hct (42-52) % MCV (80-100) fL MCH (25-34) pg MCHC (32-36) g/dL RDW Std Deviation (36.4-46.3) fL RDW Coeff of Demond (11.5-14.5) % Plt Count (130-400) K/uL MPV (7.4-10.4) fL Immature Gran % (Auto) % Neut % (Auto) % Lymph % (Auto) % Boyd % (Auto) % Eos % (Auto) % Baso % (Auto) % Immature Gran # (Auto) (0.00-0.02) K/uL Neut # (Auto) (1.4-6.5) K/uL Lymph # (Auto) (1.2-3.4) K/uL Boyd # (Auto) (0.11-0.59) K/uL Eos # (Auto) (0-0.5) K/uL Baso # (Auto) (0-0.2) K/uL Sodium 140 (136-145) mmol/L Potassium 4.1 (3.5-5.1) mmol/L Chloride 108 H (98-107) mmol/L Carbon Dioxide 23 (21-32) mmol/L Anion Gap 9.0 (3-11) BUN 22 H (7-18) mg/dl Creatinine 1.46 H (0.6-1.4) mg/dl Est Cr Clr Drug Dosing 48.4 ml/min Est GFR ( Amer) 56.5 Est GFR (Non-Af Amer) 48.7 BUN/Creatinine Ratio 15.3 (10-20) Glucose 104 H (70-99) mg/dl Calcium 9.0 (8.5-10.1) mg/dl Total Bilirubin 0.6 (0.2-1) mg/dl AST 19 (15-37) U/L ALT 29 (12-78) U/L Alkaline Phosphatase 50 (45-117) U/L Total Protein 7.3 (6.4-8.2) gm/dl Albumin 3.9 (3.4-5.0) gm/dl Globulin 3.4 (2.5-4.0) gm/dl Albumin/Globulin Ratio 1.1 (0.9-2) TSH 2.570 (0.300-4.500) uIu/ml Urine Color Urine Appearance (Clear) Urine pH (4.5-7.5) Ur Specific [place] (1.000-1.030) Urine Protein (Negative) Urine Glucose (UA) (Negative) Urine Ketones (Negative) Urine Blood (Negative) Urine Nitrite (Negative) Urine Bilirubin (Negative) Urine Urobilinogen (Negative) Ur Leukocyte Esterase (Negative) Salicylates < 1.7 L (2.8-20) mg/dl Urine Opiates Screen (Neg) Ur Methadone, Qual (Neg) Acetaminophen < 2 L (10-30) ug/ml Urine Barbiturates (Neg) Ur Phencyclidine (PCP) (Neg) U Amphetamin/Meth Scrn (Neg) MDMA (Ecstasy) Screen (Neg) U Benzodiazepines Scrn (Neg) Ur Cocaine Metabolite (Neg) U Marijuana (THC) Screen (Neg) Ethyl Alcohol mg/dL < 3.0 (0-3) mg/dl 10/15/19 10/15/19 10/15/19 Range/Units 15:28 18:45 18:45 WBC 11.21 H (4.8-10.8) K/uL RBC 4.96 (4.7-6.1) M/uL Hgb 15.1 (14.0-18.0) g/dL Hct 44.9 (42-52) % MCV 90.5 (80-100) fL MCH 30.4 (25-34) pg MCHC 33.6 (32-36) g/dL RDW Std Deviation 48.0 H (36.4-46.3) fL RDW Coeff of Demond 14.5 (11.5-14.5) % Plt Count 316 (130-400) K/uL MPV 10.1 (7.4-10.4) fL Immature Gran % (Auto) 0.3 % Neut % (Auto) 66.3 % Lymph % (Auto) 21.6 % Boyd % (Auto) 10.2 % Eos % (Auto) 1.2 % Baso % (Auto) 0.4 % Immature Gran # (Auto) 0.03 H (0.00-0.02) K/uL Neut # (Auto) 7.44 H (1.4-6.5) K/uL Lymph # (Auto) 2.42 (1.2-3.4) K/uL Boyd # (Auto) 1.14 H (0.11-0.59) K/uL Eos # (Auto) 0.14 (0-0.5) K/uL Baso # (Auto) 0.04 (0-0.2) K/uL Sodium (136-145) mmol/L Potassium (3.5-5.1) mmol/L Chloride (98-107) mmol/L Carbon Dioxide (21-32) mmol/L Anion Gap (3-11) BUN (7-18) mg/dl Creatinine (0.6-1.4) mg/dl Est Cr Clr Drug Dosing ml/min Est GFR ( Amer) Est GFR (Non-Af Amer) BUN/Creatinine Ratio (10-20) Glucose (70-99) mg/dl Calcium (8.5-10.1) mg/dl Total Bilirubin (0.2-1) mg/dl AST (15-37) U/L ALT (12-78) U/L Alkaline Phosphatase (45-117) U/L Total Protein (6.4-8.2) gm/dl Albumin (3.4-5.0) gm/dl Globulin (2.5-4.0) gm/dl Albumin/Globulin Ratio (0.9-2) TSH (0.300-4.500) uIu/ml Urine Color Yellow Urine Appearance Clear (Clear) Urine pH 7.0 (4.5-7.5) Ur Specific [place] 1.018 (1.000-1.030) Urine Protein Negative (Negative) Urine Glucose (UA) Negative (Negative) Urine Ketones Negative (Negative) Urine Blood Negative (Negative) Urine Nitrite Negative (Negative) Urine Bilirubin Negative (Negative) Urine Urobilinogen Negative (Negative) Ur Leukocyte Esterase Negative (Negative) Salicylates (2.8-20) mg/dl Urine Opiates Screen Neg (Neg) Ur Methadone, Qual Neg (Neg) Acetaminophen (10-30) ug/ml Urine Barbiturates Neg (Neg) Ur Phencyclidine (PCP) Neg (Neg) U Amphetamin/Meth Scrn Neg (Neg) MDMA (Ecstasy) Screen Neg (Neg) U Benzodiazepines Scrn Neg (Neg) Ur Cocaine Metabolite Neg (Neg) U Marijuana (THC) Screen Neg (Neg) Ethyl Alcohol mg/dL (0-3) mg/dl Blood Pressure Blood Pressure Findings: Elevated blood pressure Blood Pressure Disposition: further management by hospitalist YULISSA Narrative 1506: Past medical records reviewed. The patient was evaluated in room A05. A complete history and physical exam was performed. 2022: Patient was medically cleared and 302 signed. Patient repeatedly became agitated while he was in the emergency department and had to be placed in restraints twice however the patient was able to be verbally de-escalated after being placed in restraints. Patient will be signed out to Dr. Garcia. Impression & Plan Paranoid schizophrenia Discharge Plan Visit Data Chief Complaint: Mental Health Evaluation ED Provider: Shaun Perez Discharge Problem: Paranoid schizophrenia Forms Stand Alone Forms: My [facility], Suicide Prevention Resources Prescriptions Prescriptions: No Action benztropine 0.5 mg tablet 0.5 mg PO DAILY RF: 0 haloperidol 5 mg tablet 5 mg PO DAILY RF: 0 lamotrigine 25 mg tablet 25 mg PO DAILY RF: 0 quetiapine 200 mg tablet 200 mg PO DAILY RF: 0 temazepam 15 mg capsule 15 mg PO DAILY RF: 0 The scribe's documentation has been prepared under my direction and personally reviewed by me in its entirety. I confirm that the note above accurately reflects all work, treatment, procedures, and medical decision making performed by me.
[2019-10-15 19:27] LABS: Appearance Urine Clear (Clear); Bilirubin Urine Negative (Negative); Blood Urine Negative (Negative); Color Urine Yellow; Glucose Urine UA Negative (Negative); Ketones Urine Negative (Negative); Leukocyte Esterase Urine Negative (Negative); Nitrite Urine Negative (Negative); Protein Urine Negative (Negative); Specific Gravity Urine 1.018 (1.000-1.030); Urobilinogen Urine Negative (Negative)
[2019-10-15 20:06] LABS: Amphetamines+Metham, Urine Neg (Neg); Barbiturates, Urine Neg (Neg); Benzodiazepine, Urine Neg (Neg); Cocaine, Urine Neg (Neg); MDMA (Ecstacy), Urine Neg (Neg); Methadone, Urine Neg (Neg); Opiate, Urine Neg (Neg); Phencyclidine, Urine Neg (Neg)
[2019-10-15] MEDS ORDERED: LORazepam 1 MG TAB SL STA (22:43)
--- NOTE | 2019-10-15 22:43 | Emergency Department Note ---
ED Visit Note Pt signed out to me at change of shift. Pt awaiting final psych disposition. 0115: Patient has remained stable and plan is for admission upstairs to 3 [address]. Psychiatrist on-call was initially concerned about patient's blood pressure, however this improved with additional Ativan. They did request patient be given his usual doses of Haldol and Cogentin prior to transport upstairs. .
[2019-10-16] MEDS ORDERED: haloperidoL 5 MG TAB PO STA (01:51)
[2019-10-16] MEDS ORDERED: BENZTROPINE MESYLATE 1 MG TAB PO STA (01:51)
[2019-10-16] MEDS ORDERED: MAGNESIUM HYDROXIDE SUSP 30 ML UDC PO PRN (03:01)
[2019-10-16] MEDS ORDERED: SODIUM CHLORIDE 0.65% NA SOLN 45 ML (OCEAN) PRN (03:01)
[2019-10-16] MEDS ORDERED: BISMUTH SUBSALICYLATE PER ML OMNICELL CHARGE PO PRN (03:01)
[2019-10-16] MEDS ORDERED: ACETAMINOPHEN 325 MG TAB PO PRN (03:01)
[2019-10-16] MEDS ORDERED: haloperidoL 5 MG TAB PO PRN (03:06)
[2019-10-16] MEDS ORDERED: LORazepam 2 MG/ML VIAL (IM USE) IM PRN (08:27)
[2019-10-16] MEDS ORDERED: HALOPERIDOL LACTATE 5 MG/ML 1 ML VIAL IM PRN (08:35)
--- NOTE | 2019-10-16 08:38 | History & Physical ---
Date of Service October 16, 2019 Impression / Recommendations (1) Schizophrenia: 10/16 -longstanding primary thought disorder and noncompliance with antipsychotic medication and outpatient treatment, who was just discharged from our unit 09/30/2019, and has been noncompliant with medication. He is admitted with worsening psychosis, disorganized behavior, not caring for himself, trashing his apartment, and agitated and aggressive behavior. He refuses to see a therapist or blended casework supervisor, has very limited supports/services, and is in danger of losing his housing due to the severity of his psychotic symptoms, noncompliance with treatment, inability to maintain personal hygiene/health and destruction of his apartment, and aggressive behavior. -File for 303 involuntary commitment hearing to be held tomorrow. We will recommend medications over objection, as his symptoms are extremely unlikely to remit without antipsychotic medication, and as he has been refusing it for the past several months, his symptoms have intensified and his condition has deteriorated, with poor self-care, laboratory evidence of dehydration, and per the 302 petition, he has destroyed his apartment and has been behaving in an aggressive manner in multiple settings in the community. -Continue private room due to severity of psychosis and aggression/agitation. -Order haloperidol 5 mg twice daily (as symptoms improved on this medication when hospitalized at the [facility] several months ago), and 10 mg IM as needed for psychosis and agitation, as well as lorazepam p.o./IM and benztropine. -FLP and FG ordered for tomorrow for monitoring on an antipsychotic. -He reports medication noncompliance, so I will not resume lamotrigine at this time due to the increased risk of SJS with noncompliance. -Coordinate care with his outpatient psychiatrist, Dr. Campbell, and housing transitions casework supervisor. He would benefit from an involuntary outpatient commitment and blended case management services. -Patient is excused from groups due to safety concerns. (2) Noncompliance with treatment: 10/16 -proceed with involuntary commitment, will recommend medications over objection and long-acting injectable antipsychotic, with an involuntary outpatient commitment at the time of discharge. (3) Dehydration: 10/16 -BUN 22 and creatinine 1.46 on presentation yesterday; encourage fluids, recheck BMP tomorrow. (4) Nicotine addiction: Offer patch and gum as needed for cravings. Risk Factors Assessment Male: Yes : Yes Do You Have Access To A Gun?: No Mental Health Diagnoses: Yes Previous Attempt: No Previous Psychiatric Hospitalization: Yes Smoker: Yes Protective Factors Assessment Pentecostal Beliefs: No : No Responsible for Young Children: No Employed: No Stable Relationships: No Supportive Family: No Good Rapport with Provider: No Psychiatric History Identifying Data ZAK EDMONDSNO is a 69-year-old M who currently lives in [place] alone, has a history of schizophrenia and treatment nonadherence, and was admitted on 10/16/19 02:26 on a 302 involuntary commitment for psychosis, medication nonco mpliance, and aggressive behavior. Chief Complaint " Can you write down this number? That is my mother, call it now!" History of Present Illness The patient is known to me from multiple previous hospitalizations, most recently hospitalized from 09/25/2019 - 09/30/2019 on a 302 involuntary commitment for psychosis and treatment noncompliance. He is also been hospitalized at [facility] sometime in the past several months, was discharged on haloperidol and lamotrigine, but was noncompliant with antipsychotic. When his outpatient psychiatrist saw him 09/16/2019, he had not been on an antipsychotic for at least a month, and was irritable, psychotic, paranoid, disorganized, with delusions of persecution. During his hospitalization here, he adamantly refused to take antipsychotic medication, but stated willingness to continue lamotrigine as he felt it had been helpful. He does not meet criteria for a 303 involuntary commitment for medications over objection, so was discharged at the end of his 302 commitment on lamotrigine and temazepam at his home doses. He had outpatient appointment scheduled with his psychiatrist, Dr. Campbell, but refused referral for case management and therapy. He does have a casework supervisor, Keshawn Felder, through [employer] who supplies his apartment. She positioned a 302 for this hospitalization, which states "Diego is diagnosed with schizophrenia and is prescribed medicine for it. Diego has not been taking his medicine. Diego becomes aggressive and delusional when he is off his medicine. Diego came to [facility] looking for his Access card, claiming it was here. Diego's card has been in his possession. Diego became very aggressive and was asked to leave. Diego then went to his apartment and destroyed his apartment. Diego broke glass, threw food all over his floors, and overflowed his bathroom sink. Diego then left his apartment and left the door wide open. Diego has been talking to himself more frequently and Diego's neighbors and for me that he yells at himself at 4 AM almost every morning. He went to [facility] downtown today (10/15/2019) and caused a scene (being loud) and had to leave [facility]. Diego's appearance is decreased and appears to not be bathing or caring for himself." He was brought into the ER yesterday (10/15/2019) by police on a warrant.he stated the year was 1970, and that he did not trust medication. He repeatedly became agitated and aggressive, threatened hospital staff, and had to be placed in restraints on 2 separate occasions. He was initially tachycardic and hypertensive, with blood pressure as high as 185/108, but vital signs have since normalized. He was uncooperative with labs, refused to provide a urine sample and instead submitted a sample of toilet water, which resulted in a prolonged ER stay as he was unable to be medically cleared. He ultimately did cooperate, and admission labs were notable for WBCs 11.21, chloride 108, BUN 22, creatinine 1.46. TSH, UDS, and UA were normal. He received lorazepam 1 mg, haloperidol 5 mg, and benztropine 0.5 mg in the ER, and was admitted on an involuntary commitment. Since admission to the unit overnight, he has been agitated and uncooperative, demanding, redirected due to aggressive behavior with staff. He was placed in a medically necessary private room due to psychosis and aggressive behavior. He has refused to participate in admission assessments or to sign any releases, and has refused as needed medications. Past Psychiatric History Previous Psych History: Long history of schizophrenia and noncompliance with treatment. He has been homeless in the past, at one point lived at the [facility], and also at [facility]'s personal snf in [place]. Current Psychiatric Diagnosis: schizophrenia Outpatient Services: Psychiatrist Dr. Campbell at the [facility] psychological clinic. No therapist or blended casework supervisor. physician relations manager, Tae Hooks, through [employer]. Previous Psych Admissions: [facility] 09/25/2019 -09/30/2019, for 37 days 07/2014 - 08/2014, 06/2012, 07/2000, 04/2000, 04/1999, 02/1998 [facility] in 06/2019, as well as additional hospitalizations there, dates unknown. 07/2016 -[facility] -8 months in 1999 Do You Have Access To A Gun?: No History of Previous Suicide Attempt: No (Per past records) Past Medication Trials: Risperidal Consta 25mg - when here in [id number] Risperidone Olanzapine Clozapine -seizures per old records [place] -listed as an allergy in old records with unknown reaction Chlorpromazine -listed as an allergy in old records with unknown reaction Haldol -started at [facility] 06/2019 Lamotrigine -started at [facility] 06/2019 Lorazepam Temazepam Allergies Allergy/AdvReac Type Severity Reaction Status Date / Time No Known Allergies Allergy Verified 10/15/19 15:03 Home Medications Home Medications Medication Instructions Recorded Confirmed Type lamotrigine 25 mg PO DAILY 10/15/19 10/15/19 History temazepam 15 mg PO DAILY 10/15/19 10/15/19 History Family History Family History of: Doesn't Know Alcohol History Hx of Alcohol Use Over the Past 12 Months: No Smoking Use Have You Smoked or Used Tobacco Products in the Last 30 Days: Yes tobacco type: cigarettes Smoking Status: Current every day smoker Smoking packs per day: 1 Substance History Hx of Prescription Med Misuse Over the Past 12 Months: No Hx of Over the Counter Med Misuse Over the Past 12 Months: No Hx of Inhalent Misuse Over the Past 12 Months: No Hx of Organic Substance Use Over the Past 12 Months: No Hx of Illegal Substances/Street Drug Use Over Past 12 Months: No Problems as a Result of Past Substance Use: None Identified Problems as a Result of Past Substance Use Comments: patient unable to answer questions appropriately. UDS negative Remote history of substance abuse (alcohol, LSD and marijuana) Personal History Living Arrangements: Apartment Living Arrangements Comments: Lives alone in [place]; apartment is through [employer], who also provides in-home assistance. Childhood: Per previous records, the patient grew up locally. He was raised by both parents. 5 siblings with whom he has no contact. Highest Grade Completed: High School Graduate Employment Status: Disabled Marital Status: Single Number Of Children: 0 Beliefs That Will Affect Care: None Current Legal Problems: No (None known) Hx Traumatic Life Events: No Patient History Medical History Bronchitis (Acute) Chronic obstructive pulmonary disease Dehydration Dementia BOSCH (dyspnea on exertion) History of leukemia Hypertension Nicotine addiction Non-compliant patient Noncompliance with treatment NSVT (nonsustained ventricular tachycardia) IN SETTING OF INFLUENZA AUG 2017 - DECLINED TO SEE MANAGER SOCIAL WORK PER MEDICAL RECORD Schizophrenia Schizophrenia Smoker Surgical History History of tooth extraction Hx of right cataract extraction Family History Other Family history non-contributory Social History Preferred Language: Romanian Communication Ability: Effective Spearer Required: No Beliefs That Will Affect Care: None Current Living Situation: Alone Feels Safe at Home: Yes Smoking Status: Current every day smoker Tobacco Type: cigarettes ; Cigarettes Per Day: 2ppd ; Second Hand Exposure: No ; Hx Alcohol Use: No Hx Substance Use: No Review of Systems Review of Systems: Unobtainable due to mental health condition (Agitated and psychotic) Physical Exam Psychiatric: Orientation: alert; + uncooperative Behavior is poorly cooperative, demanding, asks questions and then interrupts before they can be answered. Male appearing his stated age, poor hygiene and grooming. Seated crosslegged on his bed eating breakfast. Initially does not respond to attempts to engage him, then jerks his head up and yells "what?!" Eye Contact: + poor eye contact Brief, darting eye contact Motor Behavior: + psychomotor agitation (Fidgeting and shifting frequently on the bed, at times jumps up suddenly, invades personal space) Loud, angry tone, frequently interrupts. Affect: + angry affect and + constricted affect Affect is restricted to agitated and angry. Mood: + angry mood Thought Process: + tangential thought process, + looseness of associations and + incoherent thought process Thought Content: + preoccupation (Demanding to leave), + paranoid, + delusions and + persecution Threats to harm others, demands to be released Homicidal Thoughts: + reports homicidal thoughts Threatens to harm police and hospital staff if he is not discharged, and if his grandmother is not contacted immediately as he is demanding Refuses to answer Cognition: + recent memory not intact, + remote memory not intact and + attention not intact Insight: + severely impaired insight Judgement: + severely impaired judgement Vital Signs (Past 24 Hours): Last Vital Signs Temp 37 C 10/16/19 03:10 Pulse 85 10/16/19 03:10 Resp 20 10/16/19 03:10 BP 140/85 10/16/19 03:10 Pulse Ox 95 10/16/19 02:18 Exam Statement: A physical exam was performed in the ER prior to admission to the unit by Dr. Shaun Perez. I accept that physical as correct/medical clearance for the inpatient physical exam. Results & Data ([facility]) Laboratory Results Laboratory Results - last 24 hr 10/15/19 10/15/19 10/15/19 15:27 15:27 15:27 WBC RBC Hgb Hct MCV MCH MCHC RDW Std Deviation RDW Coeff of Demond Plt Count MPV Immature Gran % (Auto) Neut % (Auto) Lymph % (Auto) Lamar % (Auto) Eos % (Auto) Baso % (Auto) Immature Gran # (Auto) Neut # (Auto) Lymph # (Auto) Lamar # (Auto) Eos # (Auto) Baso # (Auto) Sodium 140 Potassium 4.1 Chloride 108 H Carbon Dioxide 23 Anion Gap 9.0 BUN 22 H Creatinine 1.46 H Est Cr Clr Drug Dosing 48.4 Est GFR ( Amer) 56.5 Est GFR (Non-Af Amer) 48.7 BUN/Creatinine Ratio 15.3 Glucose 104 H Calcium 9.0 Total Bilirubin 0.6 AST 19 ALT 29 Alkaline Phosphatase 50 Total Protein 7.3 Albumin 3.9 Globulin 3.4 Albumin/Globulin Ratio 1.1 TSH 2.570 Urine Color Urine Appearance Urine pH Ur Specific Oneco Urine Protein Urine Glucose (UA) Urine Ketones Urine Blood Urine Nitrite Urine Bilirubin Urine Urobilinogen Ur Leukocyte Esterase Salicylates < 1.7 L Urine Opiates Screen Ur Methadone, Qual Acetaminophen < 2 L Urine Barbiturates Ur Phencyclidine (PCP) U Amphetamin/Meth Scrn MDMA (Ecstasy) Screen U Benzodiazepines Scrn Ur Cocaine Metabolite U Marijuana (THC) Screen Ethyl Alcohol mg/dL < 3.0 10/15/19 10/15/19 10/15/19 15:28 18:45 18:45 WBC 11.21 H RBC 4.96 Hgb 15.1 Hct 44.9 MCV 90.5 MCH 30.4 MCHC 33.6 RDW Std Deviation 48.0 H RDW Coeff of Demond 14.5 Plt Count 316 MPV 10.1 Immature Gran % (Auto) 0.3 Neut % (Auto) 66.3 Lymph % (Auto) 21.6 Lamar % (Auto) 10.2 Eos % (Auto) 1.2 Baso % (Auto) 0.4 Immature Gran # (Auto) 0.03 H Neut # (Auto) 7.44 H Lymph # (Auto) 2.42 Lamar # (Auto) 1.14 H Eos # (Auto) 0.14 Baso # (Auto) 0.04 Sodium Potassium Chloride Carbon Dioxide Anion Gap BUN Creatinine Est Cr Clr Drug Dosing Est GFR ( Amer) Est GFR (Non-Af Amer) BUN/Creatinine Ratio Glucose Calcium Total Bilirubin AST ALT Alkaline Phosphatase Total Protein Albumin Globulin Albumin/Globulin Ratio TSH Urine Color Yellow Urine Appearance Clear Urine pH 7.0 Ur Specific Oneco 1.018 Urine Protein Negative Urine Glucose (UA) Negative Urine Ketones Negative Urine Blood Negative Urine Nitrite Negative Urine Bilirubin Negative Urine Urobilinogen Negative Ur Leukocyte Esterase Negative Salicylates Urine Opiates Screen Neg Ur Methadone, Qual Neg Acetaminophen Urine Barbiturates Neg Ur Phencyclidine (PCP) Neg U Amphetamin/Meth Scrn Neg MDMA (Ecstasy) Screen Neg U Benzodiazepines Scrn Neg Ur Cocaine Metabolite Neg U Marijuana (THC) Screen Neg Ethyl Alcohol mg/dL Current Inpatient Medications Current Inpatient Medications: Current Inpatient Medications Acetaminophen (Tylenol) 650 mg PO Q4H PRN PRN Reason: Headache or Minor Fever Stop: 11/15/19 03:00 Al Hydrox/Mg Hydrox/Simethicone (Maalox) 30 ml PO Q4H PRN PRN Reason: GI Upset Stop: 11/15/19 03:00 Benztropine Mesylate (Cogentin) 1 mg PO Q6 PRN PRN Reason: EPS Stop: 11/15/19 03:07 Bismuth Subsalicylate (Kaopectate) 15 ml PO PRN PRN PRN Reason: Loose Stool Stop: 11/15/19 03:00 Haloperidol (Haldol) 10 mg PO Q4H PRN PRN Reason: psychosis Stop: 11/15/19 03:05 Haloperidol Lactate (Haldol) 10 mg IM Q4H PRN PRN Reason: psychosis Stop: 11/15/19 08:34 Hydroxyzine HCl (Vistaril) 50 mg PO HSZ PRN PRN Reason: Insomnia Stop: 11/15/19 03:00 Hydroxyzine HCl (Vistaril) 25 mg PO Q4H PRN PRN Reason: Anxiety Stop: 11/15/19 03:00 Lorazepam (Ativan) 2 mg PO Q6 PRN PRN Reason: psychosis/ agitation Stop: 11/15/19 03:01 Lorazepam (Ativan) 1 mg IM Q4H PRN PRN Reason: psychosis Stop: 11/15/19 08:26 Magnesium Hydroxide (Milk Of Magnesia) 30 ml PO DAILY PRN PRN Reason: Constipation Stop: 11/15/19 03:00 Sodium Chloride ([place] Nasal) 1 - 2 sprays NA PRN PRN PRN Reason: Nasal Dryness/Congestion Stop: 11/15/19 03:00
[2019-10-16] MEDS ORDERED: BENZTROPINE MESYLATE 1 MG/ML 2 ML AMP IM PRN (09:00)
[2019-10-16] MEDS: LORazepam 1 MG TAB PO PRN (19:33)
[2019-10-16] MEDS: BENZTROPINE MESYLATE 1 MG TAB PO PRN (19:34)
[2019-10-16] MEDS: HALOPERIDOL 10 MG TABLET PO PRN (19:35)
[2019-10-16] MEDS: haloperidoL 5 MG TAB PO SCH (22:23)
[2019-10-17] MEDS: LORazepam 1 MG TAB PO PRN ×3 (04:14→19:41)
[2019-10-17] MEDS: BENZTROPINE MESYLATE 1 MG TAB PO PRN ×3 (04:14→20:54)
[2019-10-17] MEDS: HALOPERIDOL 10 MG TABLET PO PRN ×2 (04:14→14:23)
[2019-10-17 08:41] LABS: BUN Creatinine Ratio 24.7 (10-20); Calcium 8.9 mg/dl (8.5-10.1); Creatinine Clr Calc Pharmacy 64.9 ml/min; Est GFR (African American) 80.4; Est GFR (Non-African American) 69.4; Potassium 4.4 mmol/L (3.5-5.1)
--- NOTE | 2019-10-17 09:16 | Psychiatric Progress Note ---
Date of Service October 17, 2019 Impression / Recommendations (1) Schizophrenia: 10/16 -longstanding primary thought disorder and noncompliance with antipsychotic medication and outpatient treatment, who was just discharged from our unit 09/30/2019, and has been noncompliant with medication. He is admitted with worsening psychosis, disorganized behavior, not caring for himself, trashing his apartment, and agitated and aggressive behavior. He refuses to see a therapist or blended case managers, has very limited supports/services, and is in danger of losing his housing due to the severity of his psychotic symptoms, noncompliance with treatment, inability to maintain personal hygiene/health and destruction of his apartment, and aggressive behavior. -File for 303 involuntary commitment hearing to be held tomorrow. We will recommend medications over objection, as his symptoms are extremely unlikely to remit without antipsychotic medication, and as he has been refusing it for the past several months, his symptoms have intensified and his condition has deteriorated, with poor self-care, laboratory evidence of dehydration, and per the 302 petition, he has destroyed his apartment and has been behaving in an aggressive manner in multiple settings in the community. -Continue private room due to severity of psychosis and aggression/agitation. -Order haloperidol 5 mg twice daily (as symptoms improved on this medication when hospitalized at the [facility] several months ago), and 10 mg IM as needed for psychosis and agitation, as well as lorazepam p.o./IM and benztropine. -FLP and FG ordered for tomorrow for monitoring on an antipsychotic. -He reports medication noncompliance, so I will not resume lamotrigine at this time due to the increased risk of SJS with noncompliance. -Coordinate care with his outpatient psychiatrist, Dr. Campbell, and housing transitions case managers. He would benefit from an involuntary outpatient commitment and blended case management services. -Patient is excused from groups due to safety concerns. 10/17 -303 hearing held and granted. Will file for a 304 so that he can be on an IOC at discharge. -Patient has been taking haloperidol and Lorazepam, so will continue oral medications. As above, I recommend medications over objection if needed, and he can be seen by a second psychiatrist tomorrow. The plan is to transition him to a long-acting injectable, either Haldol decanoate if he remains on haloperidol, or possibly risperidone constant or Invega Sustenna. -FLP all values within normal limits, fasting glucose 98. -Encourage attention to hygiene, clean clothes, bathing. -Continue medically necessary private room. -Care coordinated with Dr. Campbell who agrees with an HULL. (2) Noncompliance with treatment: 10/16 -proceed with involuntary commitment, will recommend medications over objection and long-acting injectable antipsychotic, with an involuntary outpatient commitment at the time of discharge. (3) Dehydration: 10/16 -BUN 22 and creatinine 1.46 on presentation yesterday; encourage fluids, recheck BMP tomorrow. 10/17 -appears to be drinking while here, and creatinine today has normalized at 1.09. BUN 27. (4) Nicotine addiction: Offer patch and gum as needed for cravings. Risk Factors Assessment Male: Yes : Yes Do You Have Access To A Gun?: No Mental Health Diagnoses: Yes Previous Attempt: No Previous Psychiatric Hospitalization: Yes Smoker: Yes Protective Factors Assessment Protestant Beliefs: No : No Responsible for Young Children: No Employed: No Stable Relationships: No Supportive Family: No Good Rapport with Provider: No Interval History Identifying Information ZAK EDMONDSON is a 69-year-old M who currently lives in [place] alone, has a history of schizophrenia and treatment nonadherence, and was admitted on 10/16/19 02:26 on a 302 involuntary commitment for psychosis, medication noncompliance, and aggressive behavior. He is on a 303 involuntary commitment as of 10/17/2019. Chief Complaint " I was a little confused". Review of Systems Notes Patient denies GI symptoms, rash/skin problems, pain, dental problems, vision problems, cardiovascular symptoms, respiratory symptoms, neurological symptoms, and psychiatric symptoms negative except as stated above Sleep Information Total Hours of Sleep: 6.5 Sleep Comments: pt NPO during the night. pt needed redirection to not eat and go to sleep. pt appeared to sleep 4 hrs during evening shift. pt on q-15 minute checks Meal Information Percent Meal Consumed - Breakfast: 100 Percent Meal Consumed - Lunch: 100 Percent Meal Consumed - Dinner: 100 Subjective Subjective Patient was seen & assessed and interval progress reviewed with nursing and social work. Staff report he continues to display restlessness, responding to internal stimuli, and agitation. He was banging his hand in the hallway door at 1 point and needed to be redirected, and was repeatedly pressing his call lorenzana. He was up multiple times overnight, slamming his door. In the past 24 hours, he received haloperidol 10 mg x 2 doses, lorazepam total of 5 mg in divided doses, and benztropine 1 mg x 3 doses. He did not attend his 303 hearing this morning, and it was granted. His room was noted to be in very poor shape, with feces on the floor, and staff intervened to clean his room. He was cooperative with blood draw this morning. On my assessment, he reports confusion, does not recall how he came to be in the hospital, and cannot remember if he took his medication this morning, asking multiple times if he already got it. He reports poor sleep overnight, was up multiple times, and felt restless and agitated. He told staff earlier that he did not want to take Haldol anymore, but is now asking for it. He remains focused on wanting to call his mother, but states he has not been able to make the phone call himself and needs help. He says "it has to be from wire to wire, not sure if they can handle that." He was assisted to use the unit phone, but even with ongoing instruction, was unable to operate it his first several attempts. Physical Exam Psychiatric Orientation: alert and cooperative; + not oriented x 3 Patient is dressed in visibly soiled clothes, wearing 2 different socks, ext remely malodorous. Unkempt, hair appears unwashed, poor hygiene. Eye Contact: + fair eye contact Motor Behavior: steady gait and station and + psychomotor retardation (Restless) Normal volume and tone, somewhat choppy speech Affect: + anxious affect and + blunted affect "Pretty good." Thought Process: + looseness of associations But more organized than yesterday, able to answer questions appropriately at times Thought Content: + paranoid, + delusions and + persecution Suicidal Thoughts: denies suicidal thoughts Homicidal Thoughts: denies homicidal thoughts Hallucinations: no auditory hallucinations Although patient denies hallucinations, he appears to be responding to internal stimuli Cognition: language grossly intact; + recent memory not intact and + attention not intact Insight: + impaired insight Judgement: + impaired judgement Vital Signs (Past 24 Hours) Last Vital Signs Temp 36.2 C L 10/17/19 06:44 Pulse 82 10/17/19 06:45 Resp 18 10/17/19 06:44 BP 128/81 10/17/19 06:45 Pulse Ox 95 10/16/19 02:18 Results & Data ([facility]) Laboratory Results Laboratory Results - last 24 hr 10/17/19 07:37 Sodium 138 Potassium 4.4 Chloride 108 H Carbon Dioxide 24 Anion Gap 6.0 BUN 27 H Creatinine 1.09 Est Cr Clr Drug Dosing 64.9 Est GFR ( Amer) 80.4 Est GFR (Non-Af Amer) 69.4 BUN/Creatinine Ratio 24.7 H Glucose 98 Calcium 8.9 Triglycerides 108 Cholesterol 147 LDL Cholesterol, Calc 96 VLDL Cholesterol, Calc 22 HDL Cholesterol 29 Cholesterol/HDL Ratio 5 Current Inpatient Medications Current Inpatient Medications: Current Inpatient Medications Acetaminophen (Tylenol) 650 mg PO Q4H PRN PRN Reason: Headache or Minor Fever Stop: 11/15/19 03:00 Last Admin: 10/16/19 11:38 Dose: 650 mg Documented by: Al Hydrox/Mg Hydrox/Simethicone (Maalox) 30 ml PO Q4H PRN PRN Reason: GI Upset Stop: 11/15/19 03:00 Benztropine Mesylate (Cogentin) 1 mg PO Q6 PRN PRN Reason: EPS Stop: 11/15/19 03:07 Last Admin: 10/17/19 04:14 Dose: 1 mg Documented by: Benztropine Mesylate (Cogentin) 1 mg IM Q4H PRN PRN Reason: with haldol for EPS Stop: 11/15/19 08:59 Last Admin: 10/16/19 13:26 Dose: 1 mg Documented by: Bismuth Subsalicylate (Kaopectate) 15 ml PO PRN PRN PRN Reason: Loose Stool Stop: 11/15/19 03:00 Haloperidol (Haldol) 10 mg PO Q4H PRN PRN Reason: psychosis Stop: 11/15/19 03:05 Last Admin: 10/17/19 04:14 Dose: 10 mg Documented by: Haloperidol (Haldol) 5 mg PO BID NARAYAN Stop: 11/15/19 20:59 Last Admin: 10/16/19 22:23 Dose: Not Given Documented by: Haloperidol Lactate (Haldol) 10 mg IM Q4H PRN PRN Reason: psychosis Stop: 11/15/19 08:34 Last Admin: 10/16/19 13:24 Dose: 10 mg Documented by: Hydroxyzine HCl (Vistaril) 50 mg PO HSZ PRN PRN Reason: Insomnia Stop: 11/15/19 03:00 Hydroxyzine HCl (Vistaril) 25 mg PO Q4H PRN PRN Reason: Anxiety Stop: 11/15/19 03:00 Lorazepam (Ativan) 2 mg PO Q6 PRN PRN Reason: psychosis/ agitation Stop: 11/15/19 03:01 Last Admin: 10/17/19 04:14 Dose: 2 mg Documented by: Lorazepam (Ativan) 1 mg IM Q4H PRN PRN Reason: psychosis Stop: 11/15/19 08:26 Last Admin: 10/16/19 13:25 Dose: 1 mg Documented by: Magnesium Hydroxide (Milk Of Magnesia) 30 ml PO DAILY PRN PRN Reason: Constipation Stop: 11/15/19 03:00 Sodium Chloride ([place] Nasal) 1 - 2 sprays NA PRN PRN PRN Reason: Nasal Dryness/Congestion Stop: 11/15/19 03:00 Mental Health & Subst Abuse Tx Derrick Worker Name of Derrick Worker: Aisha Hooks, Housing Transitions, has not agreed to [facility] services Post Discharge Appointments Primary Care Physician Name Of Family Doctor: Dr. Segundo
[2019-10-17] MEDS: haloperidoL 5 MG TAB PO SCH ×2 (10:00→19:41)
[2019-10-17] MEDS ORDERED: NICOTINE POLACRILEX 2 MG GUM MT PRN (15:30)
[2019-10-18] MEDS: haloperidoL 5 MG TAB PO SCH ×2 (10:42→21:20)
--- NOTE | 2019-10-18 13:00 | Psychiatric Progress Note ---
Date of Service October 18, 2019 Impression / Recommendations (1) Schizophrenia: 10/16 -longstanding primary thought disorder and noncompliance with antipsychotic medication and outpatient treatment, who was just discharged from our unit 09/30/2019, and has been noncompliant with medication. He is admitted with worsening psychosis, disorganized behavior, not caring for himself, trashing his apartment, and agitated and aggressive behavior. He refuses to see a therapist or blended director case, has very limited supports/services, and is in danger of losing his housing due to the severity of his psychotic symptoms, noncompliance with treatment, inability to maintain personal hygiene/health and destruction of his apartment, and aggressive behavior. -File for 303 involuntary commitment hearing to be held tomorrow. We will recommend medications over objection, as his symptoms are extremely unlikely to remit without antipsychotic medication, and as he has been refusing it for the past several months, his symptoms have intensified and his condition has deteriorated, with poor self-care, laboratory evidence of dehydration, and per the 302 petition, he has destroyed his apartment and has been behaving in an aggressive manner in multiple settings in the community. -Continue private room due to severity of psychosis and aggression/agitation. -Order haloperidol 5 mg twice daily (as symptoms improved on this medication when hospitalized at the [facility] several months ago), and 10 mg IM as needed for psychosis and agitation, as well as lorazepam p.o./IM and benztropine. -FLP and FG ordered for tomorrow for monitoring on an antipsychotic. -He reports medication noncompliance, so I will not resume lamotrigine at this time due to the increased risk of SJS with noncompliance. -Coordinate care with his outpatient psychiatrist, Dr. Campbell, and housing transitions director case. He would benefit from an involuntary outpatient commitment and blended case management services. -Patient is excused from groups due to safety concerns. 10/17 -303 hearing held and granted. Will file for a 304 so that he can be on an IOC at discharge. -Patient has been taking haloperidol and Lorazepam, so will continue oral medications. As above, I recommend medications over objection if needed, and he can be seen by a second psychiatrist tomorrow. The plan is to transition him to a long-acting injectable, either Haldol decanoate if he remains on haloperidol, or possibly risperidone constant or Invega Sustenna. -FLP all values within normal limits, fasting glucose 98. -Encourage attention to hygiene, clean clothes, bathing. -Continue medically necessary private room. -Care coordinated with Dr. Campbell who agrees with an HULL. 10/18/19 -The patient remains floridly psychotic, demonstrates delusional denial, and has references to unspecified "dangerous" in his environment. He is grossly neglecting self-care, and, for example, recently left his room and entered the milieu while he was dressed only in his undershorts. Examination of the undershorts revealed that he had defecated in them and they were badly stained. He also has been inadvertently smearing feces on the unit. He is regularly observed responding to internal stimuli, and carries on conversations with unseen persons on a regular basis. At the same time, he has a favorable history of responding to antipsychotic medications, but has not been consistently agreeing to take them. Prior to admission, he reportedly had stopped all of his psychiatric medications. The patient's psychiatric condition is unlikely to improve without the addition of antipsychotic medications, and I agree with Dr. Perez's finding the medication over objections in this case is medically necessary and appropriate. -I will order haloperidol 5 mg p.o. now, and will also enter an order for Haldol 5 mg IM, over the patient's objection if required, for refusal of p.o. medications. -I have also talked to the patient about the option of Haldol decanoate, and the patient says that he will consider this. The plan will be to offer him the opportunity to take this, but it will not be given to him against his will. (2) Noncompliance with treatment: 10/16 -proceed with involuntary commitment, will recommend medications over objection and long-acting injectable antipsychotic, with an involuntary outpatient commitment at the time of discharge. 10/18 -Medications over objection authorize (see above). We will begin haloperidol 5 mg IM for refusal of p.o. Haldol. -The patient is not sleeping. He responded favorably to a brief trial of temazepam during his last visit and this will be reinstituted. -The goal is eventually to convince the patient of the necessity of taking a Depo form of his medications, such as Haldol decanoate. (3) Dehydration: 10/16 -BUN 22 and creatinine 1.46 on presentation yesterday; encourage fluids, recheck BMP tomorrow. 10/17 -appears to be drinking while here, and creatinine today has normalized at 1.09. BUN 27. (4) Nicotine addiction: Offer patch and gum as needed for cravings. Risk Factors Assessment Male: Yes : Yes Do You Have Access To A Gun?: No Mental Health Diagnoses: Yes Previous Attempt: No Previous Psychiatric Hospitalization: Yes Smoker: Yes Protective Factors Assessment Restoration Beliefs: No : No Responsible for Young Children: No Employed: No Stable Relationships: No Supportive Family: No Good Rapport with Provider: No Interval History Identifying Information ZAK EDMONDSON is a 69-year-old M who currently lives in [place] alone, has a history of schizophrenia and treatment nonadherence, and was admitted on 10/16/19 02:26 on a 302 involuntary commitment for psychosis, medication noncompliance, and aggressive behavior. He is on a 303 involuntary commitment as of 10/17/2019. Chief Complaint " I just need to go home.". Review of Systems Sleep Information Total Hours of Sleep: 1.5 Sleep Comments: Patient restless, often back and forth between dayroom and bedroom. Patient requested food once, recieved crackers and peanut butter. Also requested and recieved coffee @ ~ 0500. Patient often making nonsensical statement throughout night. Asking for "his guthrie to his rooom" and awaiting a visit from an individual from the [facility] regarding a card. Meal Information Percent Meal Consumed - Breakfast: 100 Percent Meal Consumed - Lunch: 100 Percent Meal Consumed - Dinner: 100 Subjective Subjective Patient was seen & assessed and interval progress reviewed with treatment team. I met with the patient individually in order to assess his current mental status, evaluate his response to treatment, coordinate any necessary changes in his treatment regimen with the patient, and address issues questions and concerns that may arise. I approached the patient this morning and there was a strong odor of feces. When it was suggested that he take a shower, the patient declined. Recent behaviors have included him coming out of his room and just his feces soiled underwear, and he has (inadvertently) smeared feces in several locations on the unit. The patient also be observed actively responding to internal stimuli, as evidenced by his talking as if to unseen persons and responding in an animated fashion as if he has heard a reply. At the same time, the patient keeps saying "all I need is "la-mental" (referencing a medication) and he becomes somewhat annoyed when he is reminded that the medication that he had been taking is called "Lamictal." He had taken his haloperidol yesterday, but today refused his dose and said "I do not need it." The patient insists that there is nothing wrong with him, although he does recognize that he is being treated for a mental illness. His assertion is that he is fully adherent with his medications and that his apartment may be "a little messy" but that "it is not [his] fault." In fact, the patient had done significant amounts of damage to the interior of his apartment prior to admission, and had not been adherent with his medications. Physical Exam Psychiatric Orientation: oriented to person, oriented to place and cooperative; + not oriented to time Apperance: + disheveled The patient appears to have defecated in his pants and has a strong odor of feces. (He finally agreed to shower and was interviewed subsequent to that.) Eye Contact: + poor eye contact Motor Behavior: steady gait and station Patient speech tends to at times approach muttering, but he is able to speak more clearly when asked to enunciate. Affect: + irritable affect "My mood is okay." Thought Process: + looseness of associations Thought Content: + delusions Suicidal Thoughts: + reports suicidal thoughts Homicidal Thoughts: + reports homicidal thoughts Hallucinations: + auditory hallucinations Patient denies that he is hearing voices, but is clearly responding to internal stimuli. (See above) Memory testing is not possible. He does not indicate that he is oriented to year and is not truly oriented to situation although he does know that he is at [facility]. Estimated Intelligence: average estimated intelligence Insight: + severely impaired insight Judgement: + severely impaired judgement Vital Signs (Past 24 Hours) Last Vital Signs Temp 36.3 C L 10/18/19 06:00 Pulse 87 10/18/19 06:09 Resp 18 10/18/19 06:00 BP 134/83 10/18/19 06:09 Pulse Ox 95 10/16/19 02:18 Results & Data ([facility]) Current Inpatient Medications Current Inpatient Medications: Current Inpatient Medications Acetaminophen (Tylenol) 650 mg PO Q4H PRN PRN Reason: Headache or Minor Fever Stop: 11/15/19 03:00 Last Admin: 10/16/19 11:38 Dose: 650 mg Documented by: Al Hydrox/Mg Hydrox/Simethicone (Maalox) 30 ml PO Q4H PRN PRN Reason: GI Upset Stop: 11/15/19 03:00 Benztropine Mesylate (Cogentin) 1 mg PO Q6 PRN PRN Reason: EPS Stop: 11/15/19 03:07 Last Admin: 10/17/19 20:54 Dose: 1 mg Documented by: Benztropine Mesylate (Cogentin) 1 mg IM Q4H PRN PRN Reason: with haldol for EPS Stop: 11/15/19 08:59 Last Admin: 10/16/19 13:26 Dose: 1 mg Documented by: Bismuth Subsalicylate (Kaopectate) 15 ml PO PRN PRN PRN Reason: Loose Stool Stop: 11/15/19 03:00 Haloperidol (Haldol) 10 mg PO Q4H PRN PRN Reason: psychosis Stop: 11/15/19 03:05 Last Admin: 10/17/19 14:23 Dose: 10 mg Documented by: Haloperidol (Haldol) 5 mg PO BID NARAYAN Stop: 11/15/19 20:59 Last Admin: 10/18/19 10:42 Dose: Not Given Documented by: Haloperidol Lactate (Haldol) 10 mg IM Q4H PRN PRN Reason: psychosis Stop: 11/15/19 08:34 Last Admin: 10/16/19 13:24 Dose: 10 mg Documented by: Hydroxyzine HCl (Vistaril) 50 mg PO HSZ PRN PRN Reason: Insomnia Stop: 11/15/19 03:00 Hydroxyzine HCl (Vistaril) 25 mg PO Q4H PRN PRN Reason: Anxiety Stop: 11/15/19 03:00 Lorazepam (Ativan) 2 mg PO Q6 PRN PRN Reason: psychosis/ agitation Stop: 11/15/19 03:01 Last Admin: 10/17/19 19:41 Dose: 2 mg Documented by: Lorazepam (Ativan) 1 mg IM Q4H PRN PRN Reason: psychosis Stop: 11/15/19 08:26 Last Admin: 10/16/19 13:25 Dose: 1 mg Documented by: Magnesium Hydroxide (Milk Of Magnesia) 30 ml PO DAILY PRN PRN Reason: Constipation Stop: 11/15/19 03:00 Nicotine Polacrilex (Nicorette 2mg) 1 piece MT PRN PRN PRN Reason: nicotine craving Stop: 11/16/19 15:29 Last Admin: 10/17/19 15:44 Dose: 1 piece Documented by: Sodium Chloride ([place] Nasal) 1 - 2 sprays NA PRN PRN PRN Reason: Nasal Dryness/Congestion Stop: 11/15/19 03:00 Mental Health & Subst Abuse Tx Psychiatrist Name of Psychiatrist: [facility] - Dr. Campbell Psychiatrist's Psychiatric Appointment Comment: [address], [address], [place] [address] Pcas Name of Pcas: Antony Zavaleta Phone Number for Pcas: Case Management Appointment Comment: [address], [place] [address] Post Discharge Appointments Primary Care Physician Name Of Family Doctor: Saundra Segundo Primary Care Contact Information Discharge Discharge Address: [address] [place] [address], [facility], [place] [address]
[2019-10-18] MEDS ORDERED: HALOPERIDOL DECANOATE INJ 50 MG/ML VIAL IM ONE (13:16)
[2019-10-18] MEDS ORDERED: haloperidoL 5 MG TAB PO STA (13:22)
[2019-10-18] MEDS ORDERED: lamoTRIgine 25 MG TAB PO SCH (13:45)
--- NOTE | 2019-10-18 14:05 | Communication Note ---
Date of Service: October 18, 2019 Patient provided with informed consent and after some consideration he agreed to Haldol Dec 50 mg IM with a plan to repeat on 10/21/19. Haldol Dec 50 mg given IM in patient's right deltoid (patient's inistance, rather than gluteal injection) this afternoon.
[2019-10-18] MEDS ORDERED: HALOPERIDOL LACTATE 5 MG/ML 1 ML VIAL IM PRN (21:00)
[2019-10-18] MEDS: TEMAZEPAM 15 MG CAPSULE PO PRN (21:19)
[2019-10-18] MEDS: LORazepam 1 MG TAB PO PRN (21:20)
[2019-10-19] MEDS: haloperidoL 5 MG TAB PO SCH ×2 (08:19→21:07)
--- NOTE | 2019-10-19 08:26 | Psychiatric Progress Note ---
Date of Service October 19, 2019 Impression / Recommendations (1) Schizophrenia: 10/16 -longstanding primary thought disorder and noncompliance with antipsychotic medication and outpatient treatment, who was just discharged from our unit 09/30/2019, and has been noncompliant with medication. He is admitted with worsening psychosis, disorganized behavior, not caring for himself, trashing his apartment, and agitated and aggressive behavior. He refuses to see a therapist or blended case specialist, has very limited supports/services, and is in danger of losing his housing due to the severity of his psychotic symptoms, noncompliance with treatment, inability to maintain personal hygiene/health and destruction of his apartment, and aggressive behavior. -File for 303 involuntary commitment hearing to be held tomorrow. We will recommend medications over objection, as his symptoms are extremely unlikely to remit without antipsychotic medication, and as he has been refusing it for the past several months, his symptoms have intensified and his condition has deteriorated, with poor self-care, laboratory evidence of dehydration, and per the 302 petition, he has destroyed his apartment and has been behaving in an aggressive manner in multiple settings in the community. -Continue private room due to severity of psychosis and aggression/agitation. -Order haloperidol 5 mg twice daily (as symptoms improved on this medication when hospitalized at the [facility] several months ago), and 10 mg IM as needed for psychosis and agitation, as well as lorazepam p.o./IM and benztropine. -FLP and FG ordered for tomorrow for monitoring on an antipsychotic. -He reports medication noncompliance, so I will not resume lamotrigine at this time due to the increased risk of SJS with noncompliance. -Coordinate care with his outpatient psychiatrist, Dr. Campbell, and housing transitions case specialist. He would benefit from an involuntary outpatient commitment and blended case management services. -Patient is excused from groups due to safety concerns. 10/17 -303 hearing held and granted. Will file for a 304 so that he can be on an IOC at discharge. -Patient has been taking haloperidol and Lorazepam, so will continue oral medications. As above, I recommend medications over objection if needed, and he can be seen by a second psychiatrist tomorrow. The plan is to transition him to a long-acting injectable, either Haldol decanoate if he remains on haloperidol, or possibly risperidone constant or Invega Sustenna. -FLP all values within normal limits, fasting glucose 98. -Encourage attention to hygiene, clean clothes, bathing. -Continue medically necessary private room. -Care coordinated with Dr. Campbell who agrees with an HULL. 10/18/19 -The patient remains floridly psychotic, demonstrates delusional denial, and has references to unspecified "dangerous" in his environment. He is grossly neglecting self-care, and, for example, recently left his room and entered the milieu while he was dressed only in his undershorts. Examination of the undershorts revealed that he had defecated in them and they were badly stained. He also has been inadvertently smearing feces on the unit. He is regularly observed responding to internal stimuli, and carries on conversations with unseen persons on a regular basis. At the same time, he has a favorable history of responding to antipsychotic medications, but has not been consistently agreeing to take them. Prior to admission, he reportedly had stopped all of his psychiatric medications. The patient's psychiatric condition is unlikely to improve without the addition of antipsychotic medications, and I agree with Dr. Perez's finding the medication over objections in this case is medically necessary and appropriate. -I will order haloperidol 5 mg p.o. now, and will also enter an order for Haldol 5 mg IM, over the patient's objection if required, for refusal of p.o. medications. -I have also talked to the patient about the option of Haldol decanoate, and the patient says that he will consider this. The plan will be to offer him the opportunity to take this, but it will not be given to him against his will. 10/19 -Patient received haloperidol decanoate 50 mg IM yesterday, and has a second 50 mg injection scheduled for 10/21/2019. -Continue private room and excuse from groups until better control of symptoms and behaviors. (2) Noncompliance with treatment: 10/16 -proceed with involuntary commitment, will recommend medications over objection and long-acting injectable antipsychotic, with an involuntary outpatient commitment at the time of discharge. 10/18 -Medications over objection authorize (see above). We will begin haloperidol 5 mg IM for refusal of p.o. Haldol. -The patient is not sleeping. He responded favorably to a brief trial of temazepam during his last visit and this will be reinstituted. -The goal is eventually to convince the patient of the necessity of taking a Depo form of his medications, such as Haldol decanoate. (3) Dehydration: 10/16 -BUN 22 and creatinine 1.46 on presentation yesterday; encourage fluids, recheck BMP tomorrow. 10/17 -appears to be drinking while here, and creatinine today has normalized at 1.09. BUN 27. (4) Nicotine addiction: Offer patch and gum as needed for cravings. Risk Factors Assessment Male: Yes : Yes Do You Have Access To A Gun?: No Mental Health Diagnoses: Yes Previous Attempt: No Previous Psychiatric Hospitalization: Yes Smoker: Yes Protective Factors Assessment Worship Beliefs: No : No Responsible for Young Children: No Employed: No Stable Relationships: No Supportive Family: No Good Rapport with Provider: No Interval History Identifying Information ZAK EDMONDSON is a 69-year-old M who currently lives in [place] alone, has a history of schizophrenia and treatment nonadherence, and was admitted on 10/16/19 02:26 on a 302 involuntary commitment for psychosis, medication noncompliance, and aggressive behavior. He is on a 303 involuntary commitment as of 10/17/2019. Chief Complaint " Very good, thank you". Review of Systems Sleep Information Total Hours of Sleep: 6.5 Sleep Comments: Patient restless, often back and forth between dayroom and bedroom. Patient requested food once, recieved crackers and peanut butter. Also requested and recieved coffee @ ~ 0500. Patient often making nonsensical statement throughout night. Asking for "his guthrie to his rooom" and awaiting a visit from an individual from the HUB @ [facility] regarding a card. Meal Information Percent Meal Consumed - Breakfast: 100 Percent Meal Consumed - Lunch: 100 Percent Meal Consumed - Dinner: 100 Subjective Subjective Patient was seen & assessed and interval progress reviewed with nursing and social work. Staff report he remains psychotic but has been in better behavioral control, less agitated, and has had more appropriate interactions with staff. He has had some hygiene issues with fecal incontinence but showered with staff encouragement. He is tolerating limit setting, and agreed to a received his first Haldol decanoate injection yesterday. On my assessment, he was seen in his room, where he is seated on the bed looking out the window. He states that he is "just trying to relax and get myself together. Can't get out of here." He talks about being prescribed "lamatrine" (lamotrigine?) By a doctor at the [facility], and becomes increasingly disorganized, stating "they canceled Haldol altogether, 2 tabs once in the morning, 1 tablet for, and waiting for that to come through, the 2 tabs on the table." He then dismissed m e, and was heard muttering as I "thanks a lot, that's sickening." Physical Exam Psychiatric Orientation: alert and cooperative (Partially, but easily agitated) Unkempt and disheveled, closer to big and pants are falling off Eye Contact: + poor eye contact Motor Behavior: no abnormal motor movements Clipped, irritated tone Affect: + irritable affect and + angry affect Increasingly irritable as the interview progressed Mood: + irritable mood Thought Process: + looseness of associations Difficult to follow thought process, some perseveration on medications Thought Content: + preoccupation, + paranoid, + neologisms and + persecution Suicidal Thoughts: denies suicidal thoughts Homicidal Thoughts: denies homicidal thoughts Hallucinations: + auditory hallucinations Cognition: language grossly intact; + recent memory not intact, + remote memory not intact and + attention not intact Insight: + poor insight Judgement: + poor judgement Vital Signs (Past 24 Hours) Last Vital Signs Temp 36.4 C L 10/19/19 06:00 Pulse 86 10/19/19 06:35 Resp 17 10/19/19 06:00 BP 136/81 10/19/19 06:35 Pulse Ox 95 10/16/19 02:18 Results & Data ([facility]) Current Inpatient Medications Current Inpatient Medications: Current Inpatient Medications Acetaminophen (Tylenol) 650 mg PO Q4H PRN PRN Reason: Headache or Minor Fever Stop: 11/15/19 03:00 Last Admin: 10/16/19 11:38 Dose: 650 mg Documented by: Al Hydrox/Mg Hydrox/Simethicone (Maalox) 30 ml PO Q4H PRN PRN Reason: GI Upset Stop: 11/15/19 03:00 Benztropine Mesylate (Cogentin) 1 mg PO Q6 PRN PRN Reason: EPS Stop: 11/15/19 03:07 Last Admin: 10/17/19 20:54 Dose: 1 mg Documented by: Benztropine Mesylate (Cogentin) 1 mg IM Q4H PRN PRN Reason: with haldol for EPS Stop: 11/15/19 08:59 Last Admin: 10/16/19 13:26 Dose: 1 mg Documented by: Bismuth Subsalicylate (Kaopectate) 15 ml PO PRN PRN PRN Reason: Loose Stool Stop: 11/15/19 03:00 Haloperidol (Haldol) 10 mg PO Q4H PRN PRN Reason: psychosis Stop: 11/15/19 03:05 Last Admin: 10/17/19 14:23 Dose: 10 mg Documented by: Haloperidol (Haldol) 5 mg PO BID NARAYAN Stop: 11/17/19 20:59 Last Admin: 10/19/19 08:19 Dose: 5 mg Documented by: Haloperidol Decanoate (Haldol Decanoate) 50 mg IM ONE ONE Stop: 10/21/19 10:58 Haloperidol Lactate (Haldol) 10 mg IM Q4H PRN PRN Reason: psychosis Stop: 11/15/19 08:34 Last Admin: 10/16/19 13:24 Dose: 10 mg Documented by: Haloperidol Lactate (Haldol) 5 mg IM BID PRN PRN Reason: Give for refusal of PO Haloper Stop: 11/17/19 20:59 Hydroxyzine HCl (Vistaril) 50 mg PO HSZ PRN PRN Reason: Insomnia Stop: 11/15/19 03:00 Hydroxyzine HCl (Vistaril) 25 mg PO Q4H PRN PRN Reason: Anxiety Stop: 11/15/19 03:00 Lorazepam (Ativan) 2 mg PO Q6 PRN PRN Reason: psychosis/ agitation Stop: 11/15/19 03:01 Last Admin: 10/18/19 21:20 Dose: 2 mg Documented by: Lorazepam (Ativan) 1 mg IM Q4H PRN PRN Reason: psychosis Stop: 11/15/19 08:26 Last Admin: 10/16/19 13:25 Dose: 1 mg Documented by: Magnesium Hydroxide (Milk Of Magnesia) 30 ml PO DAILY PRN PRN Reason: Constipation Stop: 11/15/19 03:00 Nicotine Polacrilex (Nicorette 2mg) 1 piece MT PRN PRN PRN Reason: nicotine craving Stop: 11/16/19 15:29 Last Admin: 10/17/19 15:44 Dose: 1 piece Documented by: Sodium Chloride ([place] Nasal) 1 - 2 sprays NA PRN PRN PRN Reason: Nasal Dryness/Congestion Stop: 11/15/19 03:00 Temazepam (Restoril) 15 mg PO HSZ PRN PRN Reason: Insomnia Stop: 11/17/19 13:21 Last Admin: 10/18/19 21:19 Dose: 15 mg Documented by: Mental Health & Subst Abuse Tx Psychiatrist Name of Psychiatrist: [facility] - Dr. Campbell Psychiatrist's Psychiatric Appointment Comment: [address], [place] [address] Cafe Worker Name of Cafe Worker: Antony Zavaleta Phone Number for Cafe Worker: Case Management Appointment Comment: [address], [place] [address] Post Discharge Appointments Primary Care Physician Name Of Family Doctor: Saundra Segundo Primary Care Contact Information Discharge Discharge Address: [address] [place] [address], [facility], [place] [address]
[2019-10-19] MEDS: TEMAZEPAM 15 MG CAPSULE PO PRN (23:26)
[2019-10-20] MEDS: haloperidoL 5 MG TAB PO SCH ×2 (08:09→19:48)
--- NOTE | 2019-10-20 08:39 | Psychiatric Progress Note ---
Date of Service October 20, 2019 Impression / Recommendations (1) Schizophrenia: 10/16 -longstanding primary thought disorder and noncompliance with antipsychotic medication and outpatient treatment, who was just discharged from our unit 09/30/2019, and has been noncompliant with medication. He is admitted with worsening psychosis, disorganized behavior, not caring for himself, trashing his apartment, and agitated and aggressive behavior. He refuses to see a therapist or blended porter sample case, has very limited supports/services, and is in danger of losing his housing due to the severity of his psychotic symptoms, noncompliance with treatment, inability to maintain personal hygiene/health and destruction of his apartment, and aggressive behavior. -File for 303 involuntary commitment hearing to be held tomorrow. We will recommend medications over objection, as his symptoms are extremely unlikely to remit without antipsychotic medication, and as he has been refusing it for the past several months, his symptoms have intensified and his condition has deteriorated, with poor self-care, laboratory evidence of dehydration, and per the 302 petition, he has destroyed his apartment and has been behaving in an aggressive manner in multiple settings in the community. -Continue private room due to severity of psychosis and aggression/agitation. -Order haloperidol 5 mg twice daily (as symptoms improved on this medication when hospitalized at the [facility] several months ago), and 10 mg IM as needed for psychosis and agitation, as well as lorazepam p.o./IM and benztropine. -FLP and FG ordered for tomorrow for monitoring on an antipsychotic. -He reports medication noncompliance, so I will not resume lamotrigine at this time due to the increased risk of SJS with noncompliance. -Coordinate care with his outpatient psychiatrist, Dr. Campbell, and housing transitions porter sample case. He would benefit from an involuntary outpatient commitment and blended case management services. -Patient is excused from groups due to safety concerns. 10/17 -303 hearing held and granted. Will file for a 304 so that he can be on an IOC at discharge. -Patient has been taking haloperidol and Lorazepam, so will continue oral medications. As above, I recommend medications over objection if needed, and he can be seen by a second psychiatrist tomorrow. The plan is to transition him to a long-acting injectable, either Haldol decanoate if he remains on haloperidol, or possibly risperidone constant or Invega Sustenna. -FLP all values within normal limits, fasting glucose 98. -Encourage attention to hygiene, clean clothes, bathing. -Continue medically necessary private room. -Care coordinated with Dr. Campbell who agrees with an HULL. 10/18/19 -The patient remains floridly psychotic, demonstrates delusional denial, and has references to unspecified "dangerous" in his environment. He is grossly neglecting self-care, and, for example, recently left his room and entered the milieu while he was dressed only in his undershorts. Examination of the undershorts revealed that he had defecated in them and they were badly stained. He also has been inadvertently smearing feces on the unit. He is regularly observed responding to internal stimuli, and carries on conversations with unseen persons on a regular basis. At the same time, he has a favorable history of responding to antipsychotic medications, but has not been consistently agreeing to take them. Prior to admission, he reportedly had stopped all of his psychiatric medications. The patient's psychiatric condition is unlikely to improve without the addition of antipsychotic medications, and I agree with Dr. Perez's finding the medication over objections in this case is medically necessary and appropriate. -I will order haloperidol 5 mg p.o. now, and will also enter an order for Haldol 5 mg IM, over the patient's objection if required, for refusal of p.o. medications. -I have also talked to the patient about the option of Haldol decanoate, and the patient says that he will consider this. The plan will be to offer him the opportunity to take this, but it will not be given to him against his will. 10/19 -Patient received haloperidol decanoate 50 mg IM yesterday, and has a second 50 mg injection scheduled for 10/21/2019. -Continue private room and excuse from groups until better control of symptoms and behaviors. 10/20 -continue current treatment plan. (2) Noncompliance with treatment: 10/16 -proceed with involuntary commitment, will recommend medications over objection and long-acting injectable antipsychotic, with an involuntary outpatient commitment at the time of discharge. 10/18 -Medications over objection authorize (see above). We will begin haloperidol 5 mg IM for refusal of p.o. Haldol. -The patient is not sleeping. He responded favorably to a brief trial of temaze teresa during his last visit and this will be reinstituted. -The goal is eventually to convince the patient of the necessity of taking a Depo form of his medications, such as Haldol decanoate. 10/20 -received first Haldol Decanoate 50 mg IM injection 10/18/2019, and second injection scheduled for tomorrow. Will schedule a 304 tomorrow so that he will be discharged on a 304 IOC. (3) Dehydration: 10/16 -BUN 22 and creatinine 1.46 on presentation yesterday; encourage fluids, recheck BMP tomorrow. 10/17 -appears to be drinking while here, and creatinine today has normalized at 1.09. BUN 27. (4) Nicotine addiction: Offer patch and gum as needed for cravings. Risk Factors Assessment Male: Yes : Yes Do You Have Access To A Gun?: No Mental Health Diagnoses: Yes Previous Attempt: No Previous Psychiatric Hospitalization: Yes Smoker: Yes Protective Factors Assessment Voodoo Beliefs: No : No Responsible for Young Children: No Employed: No Stable Relationships: No Supportive Family: No Good Rapport with Provider: No Interval History Identifying Information ZAK EDMONDSON is a 69-year-old M who currently lives in [place] alone, has a history of schizophrenia and treatment nonadherence, and was admitted on 10/16/19 02:26 on a 302 involuntary commitment for psychosis, medication noncompliance, and aggressive behavior. He is on a 303 involuntary commitment as of 10/17/2019. Chief Complaint " Last night was 1 night I got good sleep, write that down, that medication". Review of Systems Sleep Information Total Hours of Sleep: 5.5 Sleep Comments: Patient restless, often back and forth between dayroom and bedroom. Patient requested food once, recieved crackers and peanut butter. Also requested and recieved coffee @ ~ 0500. Patient often making nonsensical statement throughout night. Asking for "his guthrie to his rooom" and awaiting a visit from an individual from the HUB @ [facility] regarding a card. Meal Information Percent Meal Consumed - Breakfast: 100 Percent Meal Consumed - Lunch: 100 Percent Meal Consumed - Dinner: 100 Subjective Subjective Patient was seen & assessed and interval progress reviewed with nursing and social work. Staff report he continues to talk to himself, is incoherent at times, and reported difficulty following his own thought process. He asked for his medications this morning, and although he continues to spill things frequently, he did clean up after himself. He is showering daily, and yesterday left the shower on when he left the bathroom. On my assessment, he was seen in his room, where he is lying on his bed resting. He states that he slept well last night, but usually struggles with sleep, and wants me to write down the name of the medication he got last night (has received temazepam 15 mg the last 2 nights). He states that he "always feels tired, can't handle too much of a workload, always exhausted, can't get a job, wouldn't be able to do it." He is unable to describe his typical day at home, or what he spends his time doing. He dismissed me abruptly, stating he is supposed to see his housing transitions porter sample case tomorrow, and then go home. Physical Exam Psychiatric Orientation: alert and cooperative (Partially, answer some questions, but abrupt ly terminated the interview and asked me to leave.) Apperance: appropriately dressed and appeared stated age Fair grooming and hygiene, appears unkempt, mildly malodorous, but improved from earlier in hospitalization. Eye Contact: + poor eye contact Makes brief eye contact, but keeps eyes closed through much of the interview. Motor Behavior: no abnormal motor movements Irritated tone, brief answers. Affect: + irritable affect "Exhausted." Thought Process: + tangential thought process; + thought process not clear or coherent Thought Content: + paranoid Suicidal Thoughts: denies suicidal thoughts Homicidal Thoughts: denies homicidal thoughts Patient would not answer regarding hallucinations, responding with unrelated information. Cognition: + recent memory not intact and + attention not intact Insight: + limited insight Judgement: + limited judgement Vital Signs (Past 24 Hours) Last Vital Signs Temp 36.6 C 10/20/19 06:00 Pulse 72 10/20/19 06:00 Resp 18 10/20/19 06:00 BP 122/77 10/20/19 06:00 Pulse Ox 95 10/16/19 02:18 Results & Data ([facility]) Current Inpatient Medications Current Inpatient Medications: Current Inpatient Medications Acetaminophen (Tylenol) 650 mg PO Q4H PRN PRN Reason: Headache or Minor Fever Stop: 11/15/19 03:00 Last Admin: 10/16/19 11:38 Dose: 650 mg Documented by: Al Hydrox/Mg Hydrox/Simethicone (Maalox) 30 ml PO Q4H PRN PRN Reason: GI Upset Stop: 11/15/19 03:00 Benztropine Mesylate (Cogentin) 1 mg PO Q6 PRN PRN Reason: EPS Stop: 11/15/19 03:07 Last Admin: 10/17/19 20:54 Dose: 1 mg Documented by: Benztropine Mesylate (Cogentin) 1 mg IM Q4H PRN PRN Reason: with haldol for EPS Stop: 11/15/19 08:59 Last Admin: 10/16/19 13:26 Dose: 1 mg Documented by: Bismuth Subsalicylate (Kaopectate) 15 ml PO PRN PRN PRN Reason: Loose Stool Stop: 11/15/19 03:00 Haloperidol (Haldol) 10 mg PO Q4H PRN PRN Reason: psychosis Stop: 11/15/19 03:05 Last Admin: 10/17/19 14:23 Dose: 10 mg Documented by: Haloperidol (Haldol) 5 mg PO BID NARAYAN Stop: 11/17/19 20:59 Last Admin: 10/20/19 08:09 Dose: 5 mg Documented by: Haloperidol Decanoate (Haldol Decanoate) 50 mg IM ONE ONE Stop: 10/21/19 10:58 Haloperidol Lactate (Haldol) 10 mg IM Q4H PRN PRN Reason: psychosis Stop: 11/15/19 08:34 Last Admin: 10/16/19 13:24 Dose: 10 mg Documented by: Haloperidol Lactate (Haldol) 5 mg IM BID PRN PRN Reason: Give for refusal of PO Haloper Stop: 11/17/19 20:59 Hydroxyzine HCl (Vistaril) 50 mg PO HSZ PRN PRN Reason: Insomnia Stop: 11/15/19 03:00 Hydroxyzine HCl (Vistaril) 25 mg PO Q4H PRN PRN Reason: Anxiety Stop: 11/15/19 03:00 Lorazepam (Ativan) 2 mg PO Q6 PRN PRN Reason: psychosis/ agitation Stop: 11/15/19 03:01 Last Admin: 10/18/19 21:20 Dose: 2 mg Documented by: Lorazepam (Ativan) 1 mg IM Q4H PRN PRN Reason: psychosis Stop: 11/15/19 08:26 Last Admin: 10/16/19 13:25 Dose: 1 mg Documented by: Magnesium Hydroxide (Milk Of Magnesia) 30 ml PO DAILY PRN PRN Reason: Constipation Stop: 11/15/19 03:00 Nicotine Polacrilex (Nicorette 2mg) 1 piece MT PRN PRN PRN Reason: nicotine craving Stop: 11/16/19 15:29 Last Admin: 10/17/19 15:44 Dose: 1 piece Documented by: Sodium Chloride ([place] Nasal) 1 - 2 sprays NA PRN PRN PRN Reason: Nasal Dryness/Congestion Stop: 11/15/19 03:00 Temazepam (Restoril) 15 mg PO HSZ PRN PRN Reason: Insomnia Stop: 11/17/19 13:21 Last Admin: 10/19/19 23:26 Dose: 15 mg Documented by: Mental Health & Subst Abuse Tx Psychiatrist Name of Psychiatrist: [facility] - Dr. Campbell Psychiatrist's Psychiatric Appointment Comment: [address], [address], [place] [address] Student Services Representative Name of Student Services Representative: Antony Zavaleta Phone Number for Student Services Representative: Case Management Appointment Comment: [address], [place] [address] Post Discharge Appointments Primary Care Physician Name Of Family Doctor: Saundra Segundo Primary Care Contact Information Discharge Discharge Address: [address] [place] [address], [place] [address]
[2019-10-20] MEDS: LORazepam 1 MG TAB PO PRN (19:48)
[2019-10-20] MEDS: ALUMINUM/MAGNESIUM SUSP 30 ML UDC PO PRN (21:12)
[2019-10-20] MEDS: TEMAZEPAM 15 MG CAPSULE PO PRN (21:12)
[2019-10-21] MEDS: haloperidoL 5 MG TAB PO SCH (07:27)
[2019-10-21] MEDS: LORazepam 1 MG TAB PO PRN ×2 (07:32→17:24)
[2019-10-21] MEDS: ALUMINUM/MAGNESIUM SUSP 30 ML UDC PO PRN (07:52)
--- NOTE | 2019-10-21 10:15 | Psychiatric Progress Note ---
Date of Service October 21, 2019 Impression / Recommendations (1) Schizophrenia: 10/16 -longstanding primary thought disorder and noncompliance with antipsychotic medication and outpatient treatment, who was just discharged from our unit 09/30/2019, and has been noncompliant with medication. He is admitted with worsening psychosis, disorganized behavior, not caring for himself, trashing his apartment, and agitated and aggressive behavior. He refuses to see a therapist or blended leather case finisher, has very limited supports/services, and is in danger of losing his housing due to the severity of his psychotic symptoms, noncompliance with treatment, inability to maintain personal hygiene/health and destruction of his apartment, and aggressive behavior. -File for 303 involuntary commitment hearing to be held tomorrow. We will recommend medications over objection, as his symptoms are extremely unlikely to remit without antipsychotic medication, and as he has been refusing it for the past several months, his symptoms have intensified and his condition has deteriorated, with poor self-care, laboratory evidence of dehydration, and per the 302 petition, he has destroyed his apartment and has been behaving in an aggressive manner in multiple settings in the community. -Continue private room due to severity of psychosis and aggression/agitation. -Order haloperidol 5 mg twice daily (as symptoms improved on this medication when hospitalized at the [facility] several months ago), and 10 mg IM as needed for psychosis and agitation, as well as lorazepam p.o./IM and benztropine. -FLP and FG ordered for tomorrow for monitoring on an antipsychotic. -He reports medication noncompliance, so I will not resume lamotrigine at this time due to the increased risk of SJS with noncompliance. -Coordinate care with his outpatient psychiatrist, Dr. Campbell, and housing transitions leather case finisher. He would benefit from an involuntary outpatient commitment and blended case management services. -Patient is excused from groups due to safety concerns. 10/17 -303 hearing held and granted. Will file for a 304 so that he can be on an IOC at discharge. -Patient has been taking haloperidol and Lorazepam, so will continue oral medications. As above, I recommend medications over objection if needed, and he can be seen by a second psychiatrist tomorrow. The plan is to transition him to a long-acting injectable, either Haldol decanoate if he remains on haloperidol, or possibly risperidone constant or Invega Sustenna. -FLP all values within normal limits, fasting glucose 98. -Encourage attention to hygiene, clean clothes, bathing. -Continue medically necessary private room. -Care coordinated with Dr. Campbell who agrees with an HULL. 10/18/19 -The patient remains floridly psychotic, demonstrates delusional denial, and has references to unspecified "dangerous" in his environment. He is grossly neglecting self-care, and, for example, recently left his room and entered the milieu while he was dressed only in his undershorts. Examination of the undershorts revealed that he had defecated in them and they were badly stained. He also has been inadvertently smearing feces on the unit. He is regularly observed responding to internal stimuli, and carries on conversations with unseen persons on a regular basis. At the same time, he has a favorable history of responding to antipsychotic medications, but has not been consistently agreeing to take them. Prior to admission, he reportedly had stopped all of his psychiatric medications. The patient's psychiatric condition is unlikely to improve without the addition of antipsychotic medications, and I agree with Dr. Perez's finding the medication over objections in this case is medically necessary and appropriate. -I will order haloperidol 5 mg p.o. now, and will also enter an order for Haldol 5 mg IM, over the patient's objection if required, for refusal of p.o. medications. -I have also talked to the patient about the option of Haldol decanoate, and the patient says that he will consider this. The plan will be to offer him the opportunity to take this, but it will not be given to him against his will. 10/19 -Patient received haloperidol decanoate 50 mg IM yesterday, and has a second 50 mg injection scheduled for 10/21/2019. -Continue private room and excuse from groups until better control of symptoms and behaviors. 10/20 -continue current treatment plan. 10/21 -received second haloperidol decanoate injection of 50 mg IM today, and discontinue p.o. haloperidol. He will be due for his maintenance injection of haloperidol decanoate 100 mg in 4 weeks, on 11/18/2019. -File for 304 involuntary outpatient commitment with hearing to be scheduled at the end of the week. -Refer to the [facility] for blended case management. Case discussed with [facility] last week, we have requested that his leather case finisher meet with him here in the hospital to start developing rapport and engage him in treatment. (2) Noncompliance with treatment: 10/16 -proceed with involuntary commitment, will recommend medications over objection and long-acting injectable antipsychotic, with an involuntary outpatient commitment at the time of discharge. 10/18 -Medications over objection authorize (see above). We will begin haloperidol 5 mg IM for refusal of p.o. Haldol. -The patient is not sleeping. He responded favorably to a brief trial of temazepam during his last visit and this will be reinstituted. -The goal is eventually to convince the patient of the necessity of taking a Depo form of his medications, such as Haldol decanoate. 10/20 -received first Haldol Decanoate 50 mg IM injection 10/18/2019, and second injection scheduled for tomorrow. Will schedule a 304 tomorrow so that he will be discharged on a 304 IOC. (3) Dehydration: 10/16 -BUN 22 and creatinine 1.46 on presentation yesterday; encourage fluids, recheck BMP tomorrow. 10/17 -appears to be drinking while here, and creatinine today has normalized at 1.09. BUN 27. (4) Nicotine addiction: Offer patch and gum as needed for cravings. Risk Factors Assessment Male: Yes : Yes Do You Have Access To A Gun?: No Mental Health Diagnoses: Yes Previous Attempt: No Previous Psychiatric Hospitalization: Yes Smoker: Yes Protective Factors Assessment Amish Beliefs: No : No Responsible for Young Children: No Employed: No Stable Relationships: No Supportive Family: No Good Rapport with Provider: No Interval History Identifying Information ZAK EDMONDSON is a 69-year-old M who currently lives in [place] alone, has a history of schizophrenia and treatment nonadherence, and was admitted on 10/16/19 02:26 on a 302 involuntary commitment for psychosis, medication noncompliance, and aggressive behavior. He is on a 303 involuntary commitment as of 10/17/2019. Chief Complaint "I'm fine, just trying to rest up". Review of Systems Sleep Information Total Hours of Sleep: 6.75 Sleep Comments: Patient restless, often back and forth between dayroom and bedroom. Patient requested food once, recieved crackers and peanut butter. Also requested and recieved coffee @ ~ 0500. Patient often making nonsensical statement throughout night. Asking for "his guthrie to his rooom" and awaiting a visit from an individual from the [facility] regarding a card. Meal Information Percent Meal Consumed - Breakfast: 100 Percent Meal Consumed - Lunch: 100 Percent Meal Consumed - Dinner: 75 Subjective Subjective Patient was seen & assessed and interval progress reviewed with treatment team. Staff report he remains excused from groups due to his inability to tolerate interpersonal interaction and ongoing irritability and agitation. He became angry and swore at staff when told he could not have a 3rd cup of coffee, per unit rules regarding limiting caffeine. He took down and threw away his laminated room and name signage, and when asked why he did this, said he did not want anyone to know his room number. He has been requesting and receiving temazepam at bedtime for sleep. This morning, he was resistant to taking his scheduled haloperidol, but did so with encouragement, and also requested and received Ativan as needed. He showered independently, but has shown resistance to performing ADLs, and often require staff assistance to clean his room and encouragement to address his personal hygiene. He continues to be observed responding to hallucinations, talking and laughing at unseen others, and is disorganized in his speech, jumping from topic to topic and at times incoherent. On my assessment, he was seen in his room, where he was lying on the bed awake. He states that he is "fine, tired, but pretty good." He says he needs to "rest up before I go out, day and night in that town, tired, your muscles get weak." He denies hallucinations, and denies thoughts of harming himself or others. Discussed the plan to get his second Haldol Decanoate injection today, and can then stop taking oral Haldol. He asked about resuming "lamotrine," and discuss ed that he was not restarted on lamotrigine on admission due to his persistent nonadherence with oral medications and the risks associated with taking this particular medication erratically, including Vora-Govind syndrome and seizures. He continues to state that this medication was helpful for him and that he felt calmer on it and would like to resume it. Agreed to resume it if he is committed to taking it daily as prescribed, and discussed the need to start over with the standard titration schedule, initially taking 25 mg daily for 2 weeks. He expressed understanding. He wanted to know if he took the oral lamotrigine if this meant he would not need to get the Haldol injection, and was advised that he would still need the injection, as they are 2 different types of medications and target different symptoms. Also discussed the plan for 304 involuntary outpatient commitment, hopefully to be scheduled at the end of this week, with discharge after the hearing to return to outpatient services. Specifically discussed recommendations for outpatient treatment including medication, psychiatry, therapy, and case management. Physical Exam Psychiatric Orientation: alert and cooperative (Partially) Although patient does showered, he is disheveled and unkempt. Hygiene is fair, not malodorous, but hair is disheveled with limited grooming. Dressed in multiple layers of baggy, ill fitting clothes. Eye Contact: + poor eye contact Motor Behavior: steady gait and station and no abnormal motor movements Nonspontaneous, rambling quality Affect: + blunted affect and + irritable affect "Tired, but pretty good." Thought Process: + tangential thought process and + incoherent thought process Able to be briefly goal-directed at times. Thought Content: + paranoid (Threw away the sign with his room number and name, stating he did not want anyone to know his room number.) Suicidal Thoughts: denies suicidal thoughts Homicidal Thoughts: denies homicidal thoughts Hallucinations: no auditory hallucinations (Patient denies auditory hallucinations, but at times appears to be responding to unseen others) Cognition: attention grossly intact and language grossly intact Insight: + poor insight Judgement: + poor judgement Vital Signs (Past 24 Hours) Last Vital Signs Temp 36.6 C 10/20/19 06:00 Pulse 72 10/20/19 06:00 Resp 18 10/20/19 06:00 BP 122/77 10/20/19 06:00 Pulse Ox 95 10/16/19 02:18 Results & Data ([facility]) Current Inpatient Medications Current Inpatient Medications: Current Inpatient Medications Acetaminophen (Tylenol) 650 mg PO Q4H PRN PRN Reason: Headache or Minor Fever Stop: 11/15/19 03:00 Last Admin: 10/16/19 11:38 Dose: 650 mg Documented by: Al Hydrox/Mg Hydrox/Simethicone (Maalox) 30 ml PO Q4H PRN PRN Reason: GI Upset Stop: 11/15/19 03:00 Last Admin: 10/21/19 07:52 Dose: 30 ml Documented by: Benztropine Mesylate (Cogentin) 1 mg PO Q6 PRN PRN Reason: EPS Stop: 11/15/19 03:07 Last Admin: 10/17/19 20:54 Dose: 1 mg Documented by: Benztropine Mesylate (Cogentin) 1 mg IM Q4H PRN PRN Reason: with haldol for EPS Stop: 11/15/19 08:59 Last Admin: 10/16/19 13:26 Dose: 1 mg Documented by: Bismuth Subsalicylate (Kaopectate) 15 ml PO PRN PRN PRN Reason: Loose Stool Stop: 11/15/19 03:00 Haloperidol (Haldol) 10 mg PO Q4H PRN PRN Reason: psychosis Stop: 11/15/19 03:05 Last Admin: 10/17/19 14:23 Dose: 10 mg Documented by: Haloperidol (Haldol) 5 mg PO BID NARAYAN Stop: 11/17/19 20:59 Last Admin: 10/21/19 07:27 Dose: 5 mg Documented by: Haloperidol Decanoate (Haldol Decanoate) 50 mg IM ONE ONE Stop: 10/21/19 10:58 Last Admin: 10/21/19 09:56 Dose: 50 mg Documented by: Haloperidol Lactate (Haldol) 10 mg IM Q4H PRN PRN Reason: psychosis Stop: 11/15/19 08:34 Last Admin: 10/16/19 13:24 Dose: 10 mg Documented by: Haloperidol Lactate (Haldol) 5 mg IM BID PRN PRN Reason: Give for refusal of PO Haloper Stop: 11/17/19 20:59 Hydroxyzine HCl (Vistaril) 50 mg PO HSZ PRN PRN Reason: Insomnia Stop: 11/15/19 03:00 Hydroxyzine HCl (Vistaril) 25 mg PO Q4H PRN PRN Reason: Anxiety Stop: 11/15/19 03:00 Lorazepam (Ativan) 2 mg PO Q6 PRN PRN Reason: psychosis/ agitation Stop: 11/15/19 03:01 Last Admin: 10/21/19 07:32 Dose: 2 mg Documented by: Lorazepam (Ativan) 1 mg IM Q4H PRN PRN Reason: psychosis Stop: 11/15/19 08:26 Last Admin: 10/16/19 13:25 Dose: 1 mg Documented by: Magnesium Hydroxide (Milk Of Magnesia) 30 ml PO DAILY PRN PRN Reason: Constipation Stop: 11/15/19 03:00 Nicotine Polacrilex (Nicorette 2mg) 1 piece MT PRN PRN PRN Reason: nicotine craving Stop: 11/16/19 15:29 Last Admin: 10/17/19 15:44 Dose: 1 piece Documented by: Sodium Chloride (Motley Nasal) 1 - 2 sprays NA PRN PRN PRN Reason: Nasal Dryness/Congestion Stop: 11/15/19 03:00 Temazepam (Restoril) 15 mg PO HSZ PRN PRN Reason: Insomnia Stop: 11/17/19 13:21 Last Admin: 10/20/19 21:12 Dose: 15 mg Documented by: Mental Health & Subst Abuse Tx Psychiatrist Name of Psychiatrist: [facility] - Dr. Campbell Psychiatrist's Psychiatric Appointment Comment: [address], [place] [address] Clamp Forklift Operator Name of Clamp Forklift Operator: Antony Zavaleta Phone Number for Clamp Forklift Operator: Case Management Appointment Comment: [address], [place] [address] Post Discharge Appointments Primary Care Physician Name Of Family Doctor: Saundra Segundo Primary Care Contact Information Discharge Discharge Address: [address] [place] [address], [facility], [place] [address]
[2019-10-21] MEDS ORDERED: HALOPERIDOL DECANOATE INJ 50 MG/ML VIAL IM ONE (10:57)
[2019-10-21] MEDS: lamoTRIgine 25 MG TAB PO SCH (11:23)
[2019-10-21] MEDS: TEMAZEPAM 15 MG CAPSULE PO PRN (21:35)
[2019-10-22] MEDS: ALUMINUM/MAGNESIUM SUSP 30 ML UDC PO PRN ×2 (00:04→11:50)
[2019-10-22] MEDS: lamoTRIgine 25 MG TAB PO SCH (07:25)
--- NOTE | 2019-10-22 10:50 | Psychiatric Progress Note ---
Date of Service October 22, 2019 Impression / Recommendations (1) Schizophrenia: 10/16 -longstanding primary thought disorder and noncompliance with antipsychotic medication and outpatient treatment, who was just discharged from our unit 09/30/2019, and has been noncompliant with medication. He is admitted with worsening psychosis, disorganized behavior, not caring for himself, trashing his apartment, and agitated and aggressive behavior. He refuses to see a therapist or blended assistant case manager, has very limited supports/services, and is in danger of losing his housing due to the severity of his psychotic symptoms, noncompliance with treatment, inability to maintain personal hygiene/health and destruction of his apartment, and aggressive behavior. -File for 303 involuntary commitment hearing to be held tomorrow. We will recommend medications over objection, as his symptoms are extremely unlikely to remit without antipsychotic medication, and as he has been refusing it for the past several months, his symptoms have intensified and his condition has deteriorated, with poor self-care, laboratory evidence of dehydration, and per the 302 petition, he has destroyed his apartment and has been behaving in an aggressive manner in multiple settings in the community. -Continue private room due to severity of psychosis and aggression/agitation. -Order haloperidol 5 mg twice daily (as symptoms improved on this medication when hospitalized at the [facility] several months ago), and 10 mg IM as needed for psychosis and agitation, as well as lorazepam p.o./IM and benztropine. -FLP and FG ordered for tomorrow for monitoring on an antipsychotic. -He reports medication noncompliance, so I will not resume lamotrigine at this time due to the increased risk of SJS with noncompliance. -Coordinate care with his outpatient psychiatrist, Dr. Campbell, and housing transitions assistant case manager. He would benefit from an involuntary outpatient commitment and blended case management services. -Patient is excused from groups due to safety concerns. 10/17 -303 hearing held and granted. Will file for a 304 so that he can be on an IOC at discharge. -Patient has been taking haloperidol and Lorazepam, so will continue oral medications. As above, I recommend medications over objection if needed, and he can be seen by a second psychiatrist tomorrow. The plan is to transition him to a long-acting injectable, either Haldol decanoate if he remains on haloperidol, or possibly risperidone constant or Invega Sustenna. -FLP all values within normal limits, fasting glucose 98. -Encourage attention to hygiene, clean clothes, bathing. -Continue medically necessary private room. -Care coordinated with Dr. Campbell who agrees with an HULL. 10/18/19 -The patient remains floridly psychotic, demonstrates delusional denial, and has references to unspecified "dangerous" in his environment. He is grossly neglecting self-care, and, for example, recently left his room and entered the milieu while he was dressed only in his undershorts. Examination of the undershorts revealed that he had defecated in them and they were badly stained. He also has been inadvertently smearing feces on the unit. He is regularly observed responding to internal stimuli, and carries on conversations with unseen persons on a regular basis. At the same time, he has a favorable history of responding to antipsychotic medications, but has not been consistently agreeing to take them. Prior to admission, he reportedly had stopped all of his psychiatric medications. The patient's psychiatric condition is unlikely to improve without the addition of antipsychotic medications, and I agree with Dr. Perez's finding the medication over objections in this case is medically necessary and appropriate. -I will order haloperidol 5 mg p.o. now, and will also enter an order for Haldol 5 mg IM, over the patient's objection if required, for refusal of p.o. medications. -I have also talked to the patient about the option of Haldol decanoate, and the patient says that he will consider this. The plan will be to offer him the opportunity to take this, but it will not be given to him against his will. 10/19 -Patient received haloperidol decanoate 50 mg IM yesterday, and has a second 50 mg injection scheduled for 10/21/2019. -Continue private room and excuse from groups until better control of symptoms and behaviors. 10/20 -continue current treatment plan. 10/21 -received second haloperidol decanoate injection of 50 mg IM today, and discontinue p.o. haloperidol. He will be due for his maintenance injection of haloperidol decanoate 100 mg in 4 weeks, on 11/18/2019. -File for 304 involuntary outpatient commitment with hearing to be scheduled at the end of the week. -Refer to the [facility] for blended case management. Case discussed with [facility] last week, we have requested that his assistant case manager meet with him here in the hospital to start developing rapport and engage him in treatment. 10/22 - Continue treatment plan as outlined above - 304 IOC hearing scheduled for 10/25 at 09:30 - Pt to meet with freight representative from [employer] this afternoon - Pt has been referred for case management through the [facility], reportedly to begin intake paperwork with patient tomorrow morning (2) Noncompliance with treatment: 10/16 -proceed with involuntary commitment, will recommend medications over objection and long-acting injectable antipsychotic, with an involuntary outpatient commitment at the time of discharge. 10/18 -Medications over objection authorize (see above). We will begin haloperidol 5 mg IM for refusal of p.o. Haldol. -The patient is not sleeping. He responded favorably to a brief trial of temazepam during his last visit and this will be reinstituted. -The goal is eventually to convince the patient of the necessity of taking a Depo form of his medications, such as Haldol decanoate. 10/20 -received first Haldol Decanoate 50 mg IM injection 10/18/2019, and second injection scheduled for tomorrow. Will schedule a 304 tomorrow so that he will be discharged on a 304 IOC. 10/22 - Received second Haldol Decanoate injection of 50mg IM on 10/21/2019 - recommending maintenance dose of haloperidol decanoate 100 mg in 4 weeks, on 11/18/2019. (3) Dehydration: 10/16 -BUN 22 and creatinine 1.46 on presentation yesterday; encourage fluids, recheck BMP tomorrow. 10/17 -appears to be drinking while here, and creatinine today has normalized at 1.09. BUN 27. (4) Nicotine addiction: Offer patch and gum as needed for cravings. Risk Factors Assessment Male: Yes : Yes Do You Have Access To A Gun?: No Mental Health Diagnoses: Yes Previous Attempt: No Previous Psychiatric Hospitalization: Yes Smoker: Yes Protective Factors Assessment Alevism Beliefs: No : No Responsible for Young Children: No Employed: No Stable Relationships: No Supportive Family: No Good Rapport with Provider: No Interval History Identifying Information ZAK EDMONDSON is a 69-year-old M who currently lives in [place] alone, has a history of schizophrenia and treatment nonadherence, and was admitted on 10/16/19 02:26 on a 302 involuntary commitment for psychosis, medication noncompliance, and aggressive behavior. He is on a 303 involuntary commitment as of 10/17/2019. Chief Complaint "See, I'm all packed up here. I have my clothes in this bag, and the hospital's clothes I put over here." Review of Systems Notes Constitutional: denied Cardiovascular: denied Respiratory: denied Gastrointestinal: complains of symptoms associated with acid reflux Neurological: denied Psychiatric: denies symptoms other than stated above Total of at least 10 systems reviewed, pertinent positives as above and in HPI. Sleep Information Total Hours of Sleep: 5.5 Sleep Comments: Patient restless, often back and forth between dayroom and bedroom. Patient requested food once, recieved crackers and peanut butter. Also requested and recieved coffee @ ~ 0500. Patient often making nonsensical statement throughout night. Asking for "his guthrie to his rooom" and awaiting a visit from an individual from the [facility] @ [facility] regarding a card. Meal Information Percent Meal Consumed - Breakfast: 100 Percent Meal Consumed - Lunch: 100 Percent Meal Consumed - Dinner: 100 Subjective Subjective Patient was seen & assessed and interval progress reviewed with nursing and social work. Staff report the patient has been attending intermittent group programming. He reportedly tolerated his second injection of haloperidol decanoate yesterday. A meeting with a freight representative from [employer] is anticipated for this afternoon. Patient has a hearing for his 304 involuntary outpatient commitment scheduled for 10/25/2019, with discharge following hearing. Patient was seen today to assess progress since admission. He appears distracted during our interview, showing this provider that he has begun to pack up his room. Patient states that his photo stylist was present on the unit this morning and that after he meets with his [employer] freight representative today, he can go home. Patient was reminded of the outpatient commitment process, and informed that his discharge is anticipated to not be for a few more days. He was reminded that a hearing is scheduled for 10/25/2019 and that he would be discharged after. Patient begins to argue with this provider, stating he has already had a hearing and that he can go home once he meets with the freight representative from [employer]. Patient does not tolerate attempts from this provider to provide him with accurate information, and patient becomes visibly more irritable. Patient continues to tell this provider that he has already had a hearing and that he is able to leave today. This provider remin ded him 1 last time his hearing is scheduled for Monday, patient responded by stating "I have been through the mental health system, why is everything so much more complicated now?" Patient abruptly ended conversation, stating he no longer desired to talk with this provider. Patient did later come up to this provider, requesting medication for heartburn. Requests were communicated to medication nurse. Physical Exam Psychiatric Orientation: alert and + guarded (uncooperative) Apperance: + disheveled (appearing unkempt); + inappropriately dressed (wearing colored jeans over top of scrub pants, sweater excessively stained) Eye Contact: + fair eye contact (limited moments of direct eye contact) Motor Behavior: steady gait and station and + psychomotor agitation (pacing, appearing mildly restless and distracted) Speech: normal rate/rhythm/volume of speech Affect: + blunted affect and + angry affect (reporting frustration that his hearing is not scheduled until Monday) Mood: + angry mood Thought Process: + tangential thought process and + incoherent thought process Thought Content: + preoccupation (with reported discharge plans, he believes he could return home today) Suicidal Thoughts: denies suicidal thoughts Cognition: attention grossly intact and language grossly intact Insight: + poor insight Judgement: + poor judgement Vital Signs (Past 24 Hours) Last Vital Signs Temp 36.6 C 10/20/19 06:00 Pulse 89 10/22/19 06:54 Resp 16 10/22/19 06:53 BP 113/77 10/22/19 06:54 Pulse Ox 95 10/16/19 02:18 Results & Data ([facility]) Current Inpatient Medications Current Inpatient Medications: Current Inpatient Medications Acetaminophen (Tylenol) 650 mg PO Q4H PRN PRN Reason: Headache or Minor Fever Stop: 11/15/19 03:00 Last Admin: 10/16/19 11:38 Dose: 650 mg Documented by: Al Hydrox/Mg Hydrox/Simethicone (Maalox) 30 ml PO Q4H PRN PRN Reason: GI Upset Stop: 11/15/19 03:00 Last Admin: 10/22/19 00:04 Dose: 30 ml Documented by: Benztropine Mesylate (Cogentin) 1 mg PO Q6 PRN PRN Reason: EPS Stop: 11/15/19 03:07 Last Admin: 10/17/19 20:54 Dose: 1 mg Documented by: Benztropine Mesylate (Cogentin) 1 mg IM Q4H PRN PRN Reason: with haldol for EPS Stop: 11/15/19 08:59 Last Admin: 10/16/19 13:26 Dose: 1 mg Documented by: Bismuth Subsalicylate (Kaopectate) 15 ml PO PRN PRN PRN Reason: Loose Stool Stop: 11/15/19 03:00 Haloperidol (Haldol) 10 mg PO Q4H PRN PRN Reason: psychosis Stop: 11/15/19 03:05 Last Admin: 10/17/19 14:23 Dose: 10 mg Documented by: Haloperidol Lactate (Haldol) 10 mg IM Q4H PRN PRN Reason: psychosis Stop: 11/15/19 08:34 Last Admin: 10/16/19 13:24 Dose: 10 mg Documented by: Hydroxyzine HCl (Vistaril) 50 mg PO HSZ PRN PRN Reason: Insomnia Stop: 11/15/19 03:00 Hydroxyzine HCl (Vistaril) 25 mg PO Q4H PRN PRN Reason: Anxiety Stop: 11/15/19 03:00 Lamotrigine (Lamictal) 25 mg PO QAM NARAYAN Stop: 11/20/19 10:14 Last Admin: 10/22/19 07:25 Dose: 25 mg Documented by: Lorazepam (Ativan) 2 mg PO Q6 PRN PRN Reason: psychosis/ agitation Stop: 11/15/19 03:01 Last Admin: 10/21/19 17:24 Dose: 2 mg Documented by: Lorazepam (Ativan) 1 mg IM Q4H PRN PRN Reason: psychosis Stop: 11/15/19 08:26 Last Admin: 10/16/19 13:25 Dose: 1 mg Documented by: Magnesium Hydroxide (Milk Of Magnesia) 30 ml PO DAILY PRN PRN Reason: Constipation Stop: 11/15/19 03:00 Nicotine Polacrilex (Nicorette 2mg) 1 piece MT PRN PRN PRN Reason: nicotine craving Stop: 11/16/19 15:29 Last Admin: 10/17/19 15:44 Dose: 1 piece Documented by: Sodium Chloride ([place] Nasal) 1 - 2 sprays NA PRN PRN PRN Reason: Nasal Dryness/Congestion Stop: 11/15/19 03:00 Temazepam (Restoril) 15 mg PO HSZ PRN PRN Reason: Insomnia Stop: 11/17/19 13:21 Last Admin: 10/21/19 21:35 Dose: 15 mg Documented by: Mental Health & Subst Abuse Tx Psychiatrist Name of Psychiatrist: [facility] - Dr. Campbell Psychiatrist's Date of Appointment with Psychiatrist: 11/11/19 Time of Appointment with Psychiatrist: 11:00 a.m. Psychiatric Appointment Comment: [address], [place] [address] Pole Incisor Operator Name of Pole Incisor Operator: Antony Zavaleta Phone Number for Pole Incisor Operator: Case Management Appointment Comment: [address], [place] [address] Post Discharge Appointments Primary Care Physician Name Of Family Doctor: Saundra Segundo Primary Care Provider Appointment Comment: Gregorio Goode Other #1: Name of Aftercare Appointment: DOLORES Diop Phone Number of Aftercare Appointment: [phone] Aftercare Appointment Comment: Call if needed #2: Name of Aftercare Appointment: [facility] Phone Number of Aftercare Appointment: [phone] Aftercare Appointment Comment: [address], [address], [place] Contact Information Discharge Discharge Address: [address], [address], [place] [address]
[2019-10-22] MEDS: LORazepam 1 MG TAB PO PRN ×2 (12:59→18:05)
[2019-10-22] MEDS: TEMAZEPAM 15 MG CAPSULE PO PRN (22:26)
[2019-10-23] MEDS: lamoTRIgine 25 MG TAB PO SCH (07:32)
--- NOTE | 2019-10-23 12:13 | Psychiatric Progress Note ---
Date of Service October 23, 2019 Impression / Recommendations (1) Schizophrenia: 10/16 -longstanding primary thought disorder and noncompliance with antipsychotic medication and outpatient treatment, who was just discharged from our unit 09/30/2019, and has been noncompliant with medication. He is admitted with worsening psychosis, disorganized behavior, not caring for himself, trashing his apartment, and agitated and aggressive behavior. He refuses to see a therapist or blended case therapist, has very limited supports/services, and is in danger of losing his housing due to the severity of his psychotic symptoms, noncompliance with treatment, inability to maintain personal hygiene/health and destruction of his apartment, and aggressive behavior. -File for 303 involuntary commitment hearing to be held tomorrow. We will recommend medications over objection, as his symptoms are extremely unlikely to remit without antipsychotic medication, and as he has been refusing it for the past several months, his symptoms have intensified and his condition has deteriorated, with poor self-care, laboratory evidence of dehydration, and per the 302 petition, he has destroyed his apartment and has been behaving in an aggressive manner in multiple settings in the community. -Continue private room due to severity of psychosis and aggression/agitation. -Order haloperidol 5 mg twice daily (as symptoms improved on this medication when hospitalized at [facility] several months ago), and 10 mg IM as needed for psychosis and agitation, as well as lorazepam p.o./IM and benztropine. -FLP and FG ordered for tomorrow for monitoring on an antipsychotic. -He reports medication noncompliance, so I will not resume lamotrigine at this time due to the increased risk of SJS with noncompliance. -Coordinate care with his outpatient psychiatrist, Dr. Campbell, and housing transitions case therapist. He would benefit from an involuntary outpatient commitment and blended case management services. -Patient is excused from groups due to safety concerns. 10/17 -303 hearing held and granted. Will file for a 304 so that he can be on an IOC at discharge. -Patient has been taking haloperidol and Lorazepam, so will continue oral medications. As above, I recommend medications over objection if needed, and he can be seen by a second psychiatrist tomorrow. The plan is to transition him to a long-acting injectable, either Haldol decanoate if he remains on haloperidol, or possibly risperidone constant or Invega Sustenna. -FLP all values within normal limits, fasting glucose 98. -Encourage attention to hygiene, clean clothes, bathing. -Continue medically necessary private room. -Care coordinated with Dr. Campbell who agrees with an HULL. 10/18/19 -The patient remains floridly psychotic, demonstrates delusional denial, and has references to unspecified "dangerous" in his environment. He is grossly neglecting self-care, and, for example, recently left his room and entered the milieu while he was dressed only in his undershorts. Examination of the undershorts revealed that he had defecated in them and they were badly stained. He also has been inadvertently smearing feces on the unit. He is regularly observed responding to internal stimuli, and carries on conversations with unseen persons on a regular basis. At the same time, he has a favorable history of responding to antipsychotic medications, but has not been consistently agreeing to take them. Prior to admission, he reportedly had stopped all of his psychiatric medications. The patient's psychiatric condition is unlikely to improve without the addition of antipsychotic medications, and I agree with Dr. Perez's finding the medication over objections in this case is medically necessary and appropriate. -I will order haloperidol 5 mg p.o. now, and will also enter an order for Haldol 5 mg IM, over the patient's objection if required, for refusal of p.o. medications. -I have also talked to the patient about the option of Haldol decanoate, and the patient says that he will consider this. The plan will be to offer him the opportunity to take this, but it will not be given to him against his will. 10/19 -Patient received haloperidol decanoate 50 mg IM yesterday, and has a second 50 mg injection scheduled for 10/21/2019. -Continue private room and excuse from groups until better control of symptoms and behaviors. 10/20 -continue current treatment plan. 10/21 -received second haloperidol decanoate injection of 50 mg IM today, and discontinue p.o. haloperidol. He will be due for his maintenance injection of haloperidol decanoate 100 mg in 4 weeks, on 11/18/2019. -File for 304 involuntary outpatient commitment with hearing to be scheduled at the end of the week. -Refer to the [facility] for blended case management. Case discussed with [facility] last week, we have requested that his case therapist meet with him here in the hospital to start developing rapport and engage him in treatment. 10/22 - Continue treatment plan as outlined above - 304 IOC hearing scheduled for 10/25 at 09:30 - Pt to meet with claims service representative from [employer] this afternoon - Pt has been referred for case management through the [facility], reportedly to begin intake paperwork with patient tomorrow morning 10/23 -continue to encourage patient to engage in treatment, he is typically able to tolerate only a few minutes of interaction. [facility] intake was started today, but he was unable to complete it. Continue lamotrigine which may be helpful for irritability. -Care coordinated with his outpatient psychiatrist, Dr. Campbell (follow-up with her 11/11/2019). We are attempting to contact [facility] to schedule his injections there; next Haldol Decanoate due 11/18/2019. (2) Noncompliance with treatment: 10/16 -proceed with involuntary commitment, will recommend medications over objection and long-acting injectable antipsychotic, with an involuntary outpatient commitment at the time of discharge. 10/18 -Medications over objection authorize (see above). We will begin haloperidol 5 mg IM for refusal of p.o. Haldol. -The patient is not sleeping. He responded favorably to a brief trial of temazepam during his last visit and this will be reinstituted. -The goal is eventually to convince the patient of the necessity of taking a Depo form of his medications, such as Haldol decanoate. 10/20 -received first Haldol Decanoate 50 mg IM injection 10/18/2019, and second injection scheduled for tomorrow. Will schedule a 304 tomorrow so that he will be discharged on a 304 IOC. 10/22 - Received second Haldol Decanoate injection of 50mg IM on 10/21/2019 - recommending maintenance dose of haloperidol decanoate 100 mg in 4 weeks, on 11/18/2019. (3) Dehydration: 10/16 -BUN 22 and creatinine 1.46 on presentation yesterday; encourage fluids, recheck BMP tomorrow. 10/17 -appears to be drinking while here, and creatinine today has normalized at 1.09. BUN 27. (4) Nicotine addiction: Offer patch and gum as needed for cravings. Risk Factors Assessment Male: Yes : Yes Do You Have Access To A Gun?: No Mental Health Diagnoses: Yes Previous Attempt: No Previous Psychiatric Hospitalization: Yes Smoker: Yes Protective Factors Assessment Amish Beliefs: No : No Responsible for Young Children: No Employed: No Stable Relationships: No Supportive Family: No Good Rapport with Provider: No Interval History Identifying Information ZAK EDMONDSON is a 69-year-old M who currently lives in [place] alone, has a history of schizophrenia and treatment nonadherence, and was admitted on 10/16/19 02:26 on a 302 involuntary commitment for psychosis, medication noncompliance, and aggressive behavior. He is on a 303 involuntary commitment as of 10/17/2019. Chief Complaint "Uh my doctor said I can go on Monday, he's going to send my prescriptions over". Review of Systems Sleep Information Total Hours of Sleep: 6 Sleep Comments: Patient restless, often back and forth between dayroom and bedroom. Patient requested food once, recieved crackers and peanut butter. Also requested and recieved coffee @ ~ 0500. Patient often making nonsensical statement throughout night. Asking for "his guthrie to his rooom" and awaiting a visit from an individual from the [facility] regarding a card. Meal Information Percent Meal Consumed - Breakfast: 100 Percent Meal Consumed - Lunch: 100 Percent Meal Consumed - Dinner: 100 Nutrition Comment: per meal record Subjective Subjective Patient was seen & assessed and interval progress reviewed with treatment team. Staff report he met with his [facility] resistor tester yesterday, and it went well; after talking with her he was agreeable to a referral for case management. He was able to attend to participate in some groups, and although he has periods of irritability, overall has been in good behavioral control. He is easily irritated by limitations, such as the maximum number of coffees he is able to have per shift. He often walks away abruptly when others are talking to him, and is not receptive to suggestions. He has been requesting and receiving multiple as needed medications for "nerves," and has received 1-2 doses of lorazepam 2 mg daily over the past 3 days, and temazepam nightly. The [facility] supervisor screen printing came to do his intake for case management today, and he was only able to tolerate part of the assessment before he became irritated and left. He then returned 20 minutes later and said he would complete the assessment, but again only tolerated completing 1 more form before he again left. On my assessment today, he was seen several different times, as he would often walk away after 1- 2 questions or even mid question. He was observed loudly barging into the nurses station at one point, asking for another cup of coffee, and when told he was at his limit for this shift, accepted that and walked away. He states he is pleased with the discharge plan, stating he knows the individual has been assigned as his blended case therapist, has worked with her before and feels comfortable with her. He denies side effects to the lamotrigine. He remains quite irritable, getting up and walking away in the middle of the assessment, and when attempted to walk with him, turned abruptly and walked in a different direction saying "goodbye, thank you." Spoke with his outpatient psychiatrist Dr. Campbell, and reviewed treatment course thus far and plans for [address] [place] [address]. Discussed psychotherapy, given his long standing refusal and possibility of utilizing the involuntary commitment to make it a requirement. She wondered about him seeing someone at [facility], if he is going to be going there or injections. They could also consider making the intake process shorter at [facility], as it is likely he wouldn't be able to tolerate it, but they currently have a many month wait. Physical Exam Psychiatric Orientation: alert and cooperative (Partially) Patient is able to tolerate a couple of questions before he becomes irritated and walks away Wearing baggy, visibly soiled clothes. Has to hold pants up when he is walking. Eye Contact: + poor eye contact Motor Behavior: steady gait and station and no abnormal motor movements Clipped speech, tone increasingly irritated as interview progresses. Stable but irritable "Good, my doctor is going to discharge me on Monday." Thought Process: goal directed thought process Thought Content: reality based without delusions Cognition: recent memory grossly intact and attention grossly intact Does not appear to recall that I am his doctor, and have seen him numerous times this hospitalization; continuously refers to his doctor as "him." Insight: + impaired insight Judgement: + impaired judgement Vital Signs (Past 24 Hours) Last Vital Signs Temp 36.4 C L 10/23/19 06:49 Pulse 84 10/23/19 06:50 Resp 18 10/23/19 06:49 BP 127/86 10/23/19 06:50 Pulse Ox 95 10/16/19 02:18 Results & Data ([facility]) Current Inpatient Medications Current Inpatient Medications: Current Inpatient Medications Acetaminophen (Tylenol) 650 mg PO Q4H PRN PRN Reason: Headache or Minor Fever Stop: 11/15/19 03:00 Last Admin: 10/16/19 11:38 Dose: 650 mg Documented by: Al Hydrox/Mg Hydrox/Simethicone (Maalox) 30 ml PO Q4H PRN PRN Reason: GI Upset Stop: 11/15/19 03:00 Last Admin: 10/22/19 11:50 Dose: 30 ml Documented by: Benztropine Mesylate (Cogentin) 1 mg PO Q6 PRN PRN Reason: EPS Stop: 11/15/19 03:07 Last Admin: 10/17/19 20:54 Dose: 1 mg Documented by: Benztropine Mesylate (Cogentin) 1 mg IM Q4H PRN PRN Reason: with haldol for EPS Stop: 11/15/19 08:59 Last Admin: 10/16/19 13:26 Dose: 1 mg Documented by: Bismuth Subsalicylate (Kaopectate) 15 ml PO PRN PRN PRN Reason: Loose Stool Stop: 11/15/19 03:00 Haloperidol (Haldol) 10 mg PO Q4H PRN PRN Reason: psychosis Stop: 11/15/19 03:05 Last Admin: 10/17/19 14:23 Dose: 10 mg Documented by: Haloperidol Lactate (Haldol) 10 mg IM Q4H PRN PRN Reason: psychosis Stop: 11/15/19 08:34 Last Admin: 10/16/19 13:24 Dose: 10 mg Documented by: Hydroxyzine HCl (Vistaril) 50 mg PO HSZ PRN PRN Reason: Insomnia Stop: 11/15/19 03:00 Hydroxyzine HCl (Vistaril) 25 mg PO Q4H PRN PRN Reason: Anxiety Stop: 11/15/19 03:00 Lamotrigine (Lamictal) 25 mg PO QAM ON LICENSE OF [facility] Stop: 11/20/19 10:14 Last Admin: 10/23/19 07:32 Dose: 25 mg Documented by: Lorazepam (Ativan) 1 mg IM Q4H PRN PRN Reason: psychosis Stop: 11/15/19 08:26 Last Admin: 10/16/19 13:25 Dose: 1 mg Documented by: Lorazepam (Ativan) 1 mg PO Q8H PRN PRN Reason: psychosis/ agitation Stop: 11/15/19 03:01 Magnesium Hydroxide (Milk Of Magnesia) 30 ml PO DAILY PRN PRN Reason: Constipation Stop: 11/15/19 03:00 Nicotine Polacrilex (Nicorette 2mg) 1 piece MT PRN PRN PRN Reason: nicotine craving Stop: 11/16/19 15:29 Last Admin: 10/17/19 15:44 Dose: 1 piece Documented by: Sodium Chloride ([place] Nasal) 1 - 2 sprays NA PRN PRN PRN Reason: Nasal Dryness/Congestion Stop: 11/15/19 03:00 Temazepam (Restoril) 15 mg PO HSZ PRN PRN Reason: Insomnia Stop: 11/17/19 13:21 Last Admin: 10/22/19 22:26 Dose: 15 mg Documented by: Mental Health & Subst Abuse Tx Psychiatrist Name of Psychiatrist: [facility] - Dr. Campbell Psychiatrist's Date of Appointment with Psychiatrist: 11/11/19 Time of Appointment with Psychiatrist: 11:00 a.m. Psychiatric Appointment Comment: [address], [address], [place] [address] Decatizer Name of Decatizer: Antony Zavaleta Phone Number for Decatizer: Time of Appointment with Decatizer: Utilize as needed Case Management Appointment Comment: [address], [place] [address] Post Discharge Appointments Primary Care Physician Name Of Family Doctor: Saundra Segundo Primary Care Provider Appointment Comment: Gregorio Goode Contact Information Discharge Discharge Address: [address] [place] [address], [facility], [place] [address]
[2019-10-23] MEDS: LORazepam 1 MG TAB PO PRN (14:41)
[2019-10-23] MEDS: TEMAZEPAM 15 MG CAPSULE PO PRN (21:26)
[2019-10-24] MEDS: LORazepam 1 MG TAB PO PRN (01:39)
[2019-10-24] MEDS: lamoTRIgine 25 MG TAB PO SCH (08:21)
--- NOTE | 2019-10-24 11:01 | Psychiatric Progress Note ---
Date of Service October 24, 2019 Impression / Recommendations (1) Schizophrenia: 10/16 -longstanding primary thought disorder and noncompliance with antipsychotic medication and outpatient treatment, who was just discharged from our unit 09/30/2019, and has been noncompliant with medication. He is admitted with worsening psychosis, disorganized behavior, not caring for himself, trashing his apartment, and agitated and aggressive behavior. He refuses to see a therapist or blended case management coordinator, has very limited supports/services, and is in danger of losing his housing due to the severity of his psychotic symptoms, noncompliance with treatment, inability to maintain personal hygiene/health and destruction of his apartment, and aggressive behavior. -File for 303 involuntary commitment hearing to be held tomorrow. We will recommend medications over objection, as his symptoms are extremely unlikely to remit without antipsychotic medication, and as he has been refusing it for the past several months, his symptoms have intensified and his condition has deteriorated, with poor self-care, laboratory evidence of dehydration, and per the 302 petition, he has destroyed his apartment and has been behaving in an aggressive manner in multiple settings in the community. -Continue private room due to severity of psychosis and aggression/agitation. -Order haloperidol 5 mg twice daily (as symptoms improved on this medication when hospitalized at the [facility] several months ago), and 10 mg IM as needed for psychosis and agitation, as well as lorazepam p.o./IM and benztropine. -FLP and FG ordered for tomorrow for monitoring on an antipsychotic. -He reports medication noncompliance, so I will not resume lamotrigine at this time due to the increased risk of SJS with noncompliance. -Coordinate care with his outpatient psychiatrist, Dr. Campbell, and housing transitions case management coordinator. He would benefit from an involuntary outpatient commitment and blended case management services. -Patient is excused from groups due to safety concerns. 10/17 -303 hearing held and granted. Will file for a 304 so that he can be on an IOC at discharge. -Patient has been taking haloperidol and Lorazepam, so will continue oral medications. As above, I recommend medications over objection if needed, and he can be seen by a second psychiatrist tomorrow. The plan is to transition him to a long-acting injectable, either Haldol decanoate if he remains on haloperidol, or possibly risperidone constant or Invega Sustenna. -FLP all values within normal limits, fasting glucose 98. -Encourage attention to hygiene, clean clothes, bathing. -Continue medically necessary private room. -Care coordinated with Dr. Campbell who agrees with an HULL. 10/18/19 -The patient remains floridly psychotic, demonstrates delusional denial, and has references to unspecified "dangerous" in his environment. He is grossly neglecting self-care, and, for example, recently left his room and entered the milieu while he was dressed only in his undershorts. Examination of the undershorts revealed that he had defecated in them and they were badly stained. He also has been inadvertently smearing feces on the unit. He is regularly observed responding to internal stimuli, and carries on conversations with unseen persons on a regular basis. At the same time, he has a favorable history of responding to antipsychotic medications, but has not been consistently agreeing to take them. Prior to admission, he reportedly had stopped all of his psychiatric medications. The patient's psychiatric condition is unlikely to improve without the addition of antipsychotic medications, and I agree with Dr. Perez's finding the medication over objections in this case is medically necessary and appropriate. -I will order haloperidol 5 mg p.o. now, and will also enter an order for Haldol 5 mg IM, over the patient's objection if required, for refusal of p.o. medications. -I have also talked to the patient about the option of Haldol decanoate, and the patient says that he will consider this. The plan will be to offer him the opportunity to take this, but it will not be given to him against his will. 10/19 -Patient received haloperidol decanoate 50 mg IM yesterday, and has a second 50 mg injection scheduled for 10/21/2019. -Continue private room and excuse from groups until better control of symptoms and behaviors. 10/20 -continue current treatment plan. 10/21 -received second haloperidol decanoate injection of 50 mg IM today, and discontinue p.o. haloperidol. He will be due for his maintenance injection of haloperidol decanoate 100 mg in 4 weeks, on 11/18/2019. -File for 304 involuntary outpatient commitment with hearing to be scheduled at the end of the week. -Refer to the [facility] for blended case management. Case discussed with [facility] last week, we have requested that his case management coordinator meet with him here in the hospital to start developing rapport and engage him in treatment. 10/22 - Continue treatment plan as outlined above - 304 IOC hearing scheduled for 10/25 at 09:30 - Pt to meet with provider service representative from [facility] this afternoon - Pt has been referred for case management through the [facility], reportedly to begin intake paperwork with patient tomorrow morning 10/23 -continue to encourage patient to engage in treatment, he is typically able to tolerate only a few minutes of interaction. [facility] intake was started today, but he was unable to complete it. Continue lamotrigine which may be helpful for irritability. -Care coordinated with his outpatient psychiatrist, Dr. Campbell (follow-up with her 11/11/2019). We are attempting to contact [facility] to schedule his injections there; next Haldol Decanoate due 11/18/2019. 10/24 - Discussed some intermittent decompensation in psychotic symptoms since switching to Haldol decanoate, consideration at this time is to continue oral supplementation until his next maintenance injection (suggesting at least 150mg IM), or to provide an additional 50mg IM injection of Haldol decanoate to target these behaviors. - While patient may be experiencing a brief regression of his condition, he does have increased outpatient support and will be discharged on a 304 involuntary outpatient commitment to assist with safety and compliance. - Today's concern is that patient is unwilling to entertain conversations about resuming oral haloperidol and is, at least at this time, stating he is not planning to continue antipsychotics in HULL form - will continue to offer educa tion and encourage compliance to reduce risk of decompensation and quite possibly loss of housing. Despite these reports, his behavior is reportedly improved from yesterday - At this point, it is felt the risks of committing patient for further ongoing involuntary inpatient commitment (with patient's limited responsiveness to treatment) are felt to outweigh any perceived benefit patient may receive from the short-duration hospitalization. He is not, at this time, demonstrating behavior that would suggest acute safety risk. - Pt will of course be reassessed tomorrow morning prior to his 304 IOC hearing to determine if discharge home is appropriate at that time (2) Noncompliance with treatment: 10/16 -proceed with involuntary commitment, will recommend medications over objection and long-acting injectable antipsychotic, with an involuntary outpatient commitment at the time of discharge. 10/18 -Medications over objection authorize (see above). We will begin haloperidol 5 mg IM for refusal of p.o. Haldol. -The patient is not sleeping. He responded favorably to a brief trial of temazepam during his last visit and this will be reinstituted. -The goal is eventually to convince the patient of the necessity of taking a Depo form of his medications, such as Haldol decanoate. 10/20 -received first Haldol Decanoate 50 mg IM injection 10/18/2019, and second injection scheduled for tomorrow. Will schedule a 304 tomorrow so that he will be discharged on a 304 IOC. 10/22 - Received second Haldol Decanoate injection of 50mg IM on 10/21/2019 - recommending maintenance dose of haloperidol decanoate 100 mg in 4 weeks, on 11/18/2019. 10/24 - Development in willingness to comply with outpatient medication recommendations as listed above - Continue with plan that patient be discharged on a 304 IOC to promote outpatient support and compliance - Pt has ongoing support from [facility] provider service representative, has agreed to a case management coordinator who has already met with the patient during this hospitalization - patient is verbalizing that he is agreeable with continuing to work with these individuals (3) Dehydration: 10/16 -BUN 22 and creatinine 1.46 on presentation yesterday; encourage fluids, recheck BMP tomorrow. 10/17 -appears to be drinking while here, and creatinine today has normalized at 1.09. BUN 27. (4) Nicotine addiction: Offer patch and gum as needed for cravings. Risk Factors Assessment Male: Yes : Yes Do You Have Access To A Gun?: No Mental Health Diagnoses: Yes Previous Attempt: No Previous Psychiatric Hospitalization: Yes Smoker: Yes Protective Factors Assessment Baptism Beliefs: No : No Responsible for Young Children: No Employed: No Stable Relationships: No Supportive Family: No Good Rapport with Provider: No Interval History Identifying Information ZAK EDMONDSON is a 69-year-old M who currently lives in [place] alone, has a history of schizophrenia and treatment nonadherence, and was admitted on 10/16/19 02:26 on a 302 involuntary commitment for psychosis, medication noncompliance, and aggressive behavior. He is on a 303 involuntary commitment as of 10/17/2019. Chief Complaint "I'm very good. Splendid, in fact." Review of Systems Notes Pt unable to participate in a conversation of ideal duration - unable to c omplete full ROS. Pt did not verbalize any physical complaints. Sleep Information Total Hours of Sleep: 4.25 Sleep Comments: patient requested and received two cups of coffeee this shift, and a prn jefferson anxiet. Meal Information Percent Meal Consumed - Breakfast: 100 Percent Meal Consumed - Lunch: 100 Percent Meal Consumed - Dinner: 100 Nutrition Comment: per meal record Subjective Subjective Patient was seen & assessed and interval progress reviewed with nursing and social work. Staff report concern regarding intermittent decompensation of patient's condition. While he is able to tolerate brief conversations with staff, his cooperation with discharge planning is intermittent. It is reported he was observed last evening to be having conversations with trash cans. He behavior has been appropriate with peers per report. Conversation was had during morning report that patient may require a higher dose of haloperidol decanoate to adequately target his symptoms. Pt was seen today to assess progress since admission. Pt states he is feeling "very good. Splendid, in fact." He states he has only been attending select groups - reporting a preference for community meeting as "I don't need the other things, how to cope with my stress. I'm not really stressed about anything, I manage it just fine." Pt was able to participate in conversation regarding his coping strategies. He indicates that he utilizes structure and routine to reduce anxiety and that conversing with friends, watching television, and "going up to the office and requesting my prn medications" is often helpful for him. He denies other concerns. Attempt was made to suggest higher dosage of haloperidol decanoate, which patient was unwilling to tolerate. He maintains that he is only to be taking lamotrigine each morning and "Restoril at night, and maybe an Ativan here and there. But that's it." Pt is unwilling to resume oral haloperidol, but is also now suggesting that he may not continue haloperidol decanoate injections after discharge. This provider began to discuss concern that decompensation in his mental health may have significant consequences. Pt responds by saying "if this is all you wanted to talk about, I'm leaving. My medications are fine." He then abruptly leaves the office. Physical Exam Psychiatric Orientation: alert and + guarded (initially pleasant, but uncooperative with discussion about medications) Apperance: + disheveled; + inappropriately dressed (multiple layers of clothing, heavily stained) Pt showers routinely, however, continues to present as unkempt and disheveled. Eye Contact: good eye contact Motor Behavior: steady gait and station and no abnormal motor movements Speech: normal rate/rhythm/volume of speech (irritable tone) Affect: + flat affect and + irritable affect (when discussing medications) Mood: no depressed mood ("I'm fine. Splendid, in fact") and no anxious mood Thought Process: goal directed thought process and + concrete thought process Thought Content: reality based without delusions (thought remains unable to reflect on the severity of his condition) Suicidal Thoughts: denies suicidal thoughts Homicidal Thoughts: denies homicidal thoughts Hallucinations: no auditory hallucinations and no visual hallucinations Reporting "I'm not paranoid, I'm not having hallucinations. I'm fine." Cognition: language grossly intact; + attention not intact Insight: + impaired insight (chronically poor) Judgement: + impaired judgement (chronically poor) Vital Signs (Past 24 Hours) Last Vital Signs Temp 36.4 C L 10/24/19 06:58 Pulse 89 10/24/19 06:59 Resp 18 10/24/19 06:58 BP 121/78 10/24/19 06:59 Pulse Ox 95 10/16/19 02:18 Results & Data ([facility]) Current Inpatient Medications Current Inpatient Medications: Current Inpatient Medications Acetaminophen (Tylenol) 650 mg PO Q4H PRN PRN Reason: Headache or Minor Fever Stop: 11/15/19 03:00 Last Admin: 10/16/19 11:38 Dose: 650 mg Documented by: Al Hydrox/Mg Hydrox/Simethicone (Maalox) 30 ml PO Q4H PRN PRN Reason: GI Upset Stop: 11/15/19 03:00 Last Admin: 10/22/19 11:50 Dose: 30 ml Documented by: Benztropine Mesylate (Cogentin) 1 mg PO Q6 PRN PRN Reason: EPS Stop: 11/15/19 03:07 Last Admin: 10/17/19 20:54 Dose: 1 mg Documented by: Benztropine Mesylate (Cogentin) 1 mg IM Q4H PRN PRN Reason: with haldol for EPS Stop: 11/15/19 08:59 Last Admin: 10/16/19 13:26 Dose: 1 mg Documented by: Bismuth Subsalicylate (Kaopectate) 15 ml PO PRN PRN PRN Reason: Loose Stool Stop: 11/15/19 03:00 Haloperidol (Haldol) 10 mg PO Q4H PRN PRN Reason: psychosis Stop: 11/15/19 03:05 Last Admin: 10/17/19 14:23 Dose: 10 mg Documented by: Haloperidol Lactate (Haldol) 10 mg IM Q4H PRN PRN Reason: psychosis Stop: 11/15/19 08:34 Last Admin: 10/16/19 13:24 Dose: 10 mg Documented by: Hydroxyzine HCl (Vistaril) 50 mg PO HSZ PRN PRN Reason: Insomnia Stop: 11/15/19 03:00 Hydroxyzine HCl (Vistaril) 25 mg PO Q4H PRN PRN Reason: Anxiety Stop: 11/15/19 03:00 Lamotrigine (Lamictal) 25 mg PO QAM NARAYAN Stop: 11/20/19 10:14 Last Admin: 10/24/19 08:21 Dose: 25 mg Documented by: Lorazepam (Ativan) 1 mg IM Q4H PRN PRN Reason: psychosis Stop: 11/15/19 08:26 Last Admin: 10/16/19 13:25 Dose: 1 mg Documented by: Lorazepam (Ativan) 1 mg PO Q8H PRN PRN Reason: psychosis/ agitation Stop: 11/15/19 03:01 Last Admin: 10/24/19 01:39 Dose: 1 mg Documented by: Magnesium Hydroxide (Milk Of Magnesia) 30 ml PO DAILY PRN PRN Reason: Constipation Stop: 11/15/19 03:00 Nicotine Polacrilex (Nicorette 2mg) 1 piece MT PRN PRN PRN Reason: nicotine craving Stop: 11/16/19 15:29 Last Admin: 10/17/19 15:44 Dose: 1 piece Documented by: Sodium Chloride (Colbert Nasal) 1 - 2 sprays NA PRN PRN PRN Reason: Nasal Dryness/Congestion Stop: 11/15/19 03:00 Temazepam (Restoril) 15 mg PO HSZ PRN PRN Reason: Insomnia Stop: 11/17/19 13:21 Last Admin: 10/23/19 21:26 Dose: 15 mg Documented by: Mental Health & Subst Abuse Tx Psychiatrist Name of Psychiatrist: [facility] - Dr. Campbell Psychiatrist's Date of Appointment with Psychiatrist: 11/11/19 Time of Appointment with Psychiatrist: 11:00 a.m. Psychiatric Appointment Comment: [address], [place] [address] Medical Coding Technician Name of Medical Coding Technician: Antony Zavaleta Phone Number for Medical Coding Technician: Time of Appointment with Medical Coding Technician: Utilize as needed Case Management Appointment Comment: [address], [place] [address] Post Discharge Appointments Primary Care Physician Name Of Family Doctor: Saundra Segundo Primary Care Provider Appointment Comment: Gregorio Goode Other #1: Name of Aftercare Appointment: [facility] Phone Number of Aftercare Appointment: [phone] Aftercare Appointment Comment: Call if needed #2: Name of Aftercare Appointment: [facility] - Radha Phone Number of Aftercare Appointment: [phone] Time of Aftercare Appointment: Will follow up with you. Aftercare Appointment Comment: [address], [address], [place] Contact Information Discharge Discharge Address: [address], [address], [place] [address]
[2019-10-24] MEDS: TEMAZEPAM 15 MG CAPSULE PO PRN (21:00)
[2019-10-24] MEDS: ALUMINUM/MAGNESIUM SUSP 30 ML UDC PO PRN (21:18)
[2019-10-25] MEDS: ALUMINUM/MAGNESIUM SUSP 30 ML UDC PO PRN ×2 (03:37→09:59)
[2019-10-25] MEDS: lamoTRIgine 25 MG TAB PO SCH (07:39)
--- NOTE | 2019-10-25 13:05 | Discharge Summary ---
Date of Service October 25, 2019 History of Present Illness The patient is known to me from multiple previous hospitalizations, most recently hospitalized from 09/25/2019 - 09/30/2019 on a 302 involuntary commitment for psychosis and treatment noncompliance. He is also been hospitalized at [facility] sometime in the past several months, was discharged on haloperidol and lamotrigine, but was noncompliant with antipsychotic. When his outpatient psychiatrist saw him 09/16/2019, he had not been on an antipsychotic for at least a month, and was irritable, psychotic, paranoid, disorganized, with delusions of persecution. During his hospitalization here, he adamantly refused to take antipsychotic medication, but stated willingness to continue lamotrigine as he felt it had been helpful. He does not meet criteria for a 303 involuntary commitment for medications over objection, so was discharged at the end of his 302 commitment on lamotrigine and temazepam at his home doses. He had outpatient appointment scheduled with his psychiatrist, Dr. Campbell, but refused referral for case management and therapy. He does have a case finishing machine adjuster, Keshawn Felder, through [employer] who supplies his apartment. She positioned a 302 for this hospitalization, which states "Diego is diagnosed with schizophrenia and is prescribed medicine for it. Diego has not been taking his medicine. Diego becomes aggressive and delusional when he is off his medicine. Diego came to [facility] ([facility]) looking for his Access card, claiming it was here. Diego's card has been in his possession. Diego became very aggressive and was asked to leave. Diego then went to his apartment and destroyed his apartment. Diego broke glass, threw food all over his floors, and overflowed his bathroom sink. Dieog then left his apartment and left the door wide open. Diego has been talking to himself more frequently and Diego's neighbors and for me that he yells at himself at 4 AM almost every morning. He went to [employer] [place] today (10/15/2019) and caused a scene (being loud) and had to leave [employer]. Diego's appearance is decreased and appears to not be bathing or caring for himself." He was brought into the ER yesterday (10/15/2019) by police on a warrant.he stated the year was 1970, and that he did not trust medication. He repeatedly became agitated and aggressive, threatened hospital staff, and had to be placed in restraints on 2 separate occasions. He was initially tachycardic and hypertensive, with blood pressure as high as 185/108, but vital signs have since normalized. He was uncooperative with labs, refused to provide a urine sample and instead submitted a sample of toilet water, which resulted in a prolonged ER stay as he was unable to be medically cleared. He ultimately did cooperate, and admission labs were notable for WBCs 11.21, chloride 108, BUN 22, creatinine 1.46. TSH, UDS, and UA were normal. He received lorazepam 1 mg, haloperidol 5 mg, and benztropine 0.5 mg in the ER, and was admitted on an involuntary commitment. Since admission to the unit overnight, he has been agitated and un cooperative, demanding, redirected due to aggressive behavior with staff. He was placed in a medically necessary private room due to psychosis and aggressive behavior. He has refused to participate in admission assessments or to sign any releases, and has refused as needed medications. Physical Exam Psychiatric Orientation: alert, oriented x 3 and cooperative Apperance: appropriately dressed and appropriately groomed Eye Contact: + fair eye contact Motor Behavior: steady gait and station Speech: normal rate/rhythm/volume of speech Affect: + constricted affect "My mood is fine." Thought Process: goal directed thought process and + concrete thought process Thought Content: reality based without delusions Suicidal Thoughts: denies suicidal thoughts Homicidal Thoughts: denies homicidal thoughts Hallucinations: no auditory hallucinations Cognition: recent memory grossly intact, remote memory grossly intact and language grossly intact Estimated Intelligence: average estimated intelligence Insight: + fair insight Judgement: + fair judgement Vital Signs (Past 24 Hours) Last Vital Signs Temp 36.5 C 10/25/19 10:30 Pulse 85 10/25/19 10:30 Resp 18 10/25/19 10:30 BP 108/78 10/25/19 10:30 Pulse Ox 95 10/25/19 10:30 Principal Diagnosis Schizophrenia Psychiatric Data During the course of hospitalization the patient was offered various modalities of psychiatric treatment and education. These included individual, group, activity, and psychiatric chemotherapy. Initially, the patient was quite disorganized, as well as uncooperative with treatment. There were several instances in which the patient left his private room and entered the public areas either undressed or covered in feces. In one instance, the patient had obviously soiled his undershorts, and entered the day room where he sat on the furniture and expressed feces onto the furniture. He was often reluctant to bathe or changes close. He also refused to take psychiatric medications. To evaluation for medications over objection were achieved, and medication over objection was ordered. The patient did receive haloperidol as well as lorazepam and diphenhydramine because of psychiatric agitation and florid psychosis. Eventually he agreed to take oral haloperidol 5 mg twice a day, but his adherence was only intermittent. Nevertheless, on those instances in which the patient did take haloperidol (either orally or intramuscularly) staff noticed improvement in his behavior and his ability to successfully test reality. On 10/18/2019 the patient agreed to an intramuscular injection of Haldol decanoate 50 mg, and he subsequently agreed to a second dose of haloperidol decanoate 50 mg intramuscularly on 10/21/2019. Subsequent to that, the patient became markedly more cooperative and organized. He attended to his activities of daily living, and apart from periodic assertions by the patient that he would refuse to cooperate with further treatment, he was easily redirected and by the day of discharge his thought content was devoid of psychotic features, and he did not appear to be experiencing any perceptual disturbances. A 304 hearing was held on 10/25/2019 and the petition was granted by the business practices officer. The treatment team was in agreement that the patient's condition has improved to the degree that he can now safely continue treatment on an outpatient basis, [facility]. We are recommending that his next dose of Haldol Decanoate, which should be due on 11/18/2019 should be increased to a dose of 100 mg intramuscularly, or a dose of 150 mg intramuscularly, can depending upon the patient's continued progress. At the patient's request, he was also started back on lamotrigine 25 mg twice a day. He reports that in the past this medication is better very helpful to him. He was advised that the medication will need to be titrated slowly. He was made aware of the material risks including, but not limited to, risk of Vora-Govind syndrome and he indicated understanding. He also responded favorably to the temazepam 15 mg at bedtime. In the past, he had required 22.5 mg of temazepam to sleep, but during the current stay he slept quite well with the 15 mg dose. Day of Discharge Assessment On the day of discharge, the patient was cooperative with the discharge assessment. He also cooperated with his 304 hearing and in the hearing confirmed that he intended to take his psychiatric medications as prescribed following release from the hospital. The patient's appearance was much better, and he had appropriately bathed and groomed himself. His speech was delivered at a normal rate and rhythm, and he spoke spontaneously. His thought processes were somewhat concrete, but were generally goal oriented. His thought content was devoid of any psychotic features. He reports that he is not experiencing any perceptual disturbances, and he does not appear to be responding to internal stimuli at this point. The patient does not have good insight into his illness, but is aware of his need for mental health treatment and agrees to adhere with his recommended outpatient treatments, including working with a psychiatrist and a case finishing machine adjuster, as well as taking his psychiatric medications. The patient's judgment is at least fair. He reports that he is having no thoughts of harming himself, and he also confirms that he is having no thoughts of causing physical harm to the person or property of others. Transition of Care Transition Of Care Record: was reviewed with the patient Advance Directives Advance Directives Information Provided: Yes Advance Directives: No Mental Health Advance Directive: No Advance Directives on File: No Living Will: No Power of Sample Preparation Supervisor: No Advance Directives Reason:: Declines as Mental Health Visit. Risk Factors Assessment Male: Yes : Yes Do You Have Access To A Gun?: No Mental Health Diagnoses: Yes Previous Attempt: No Previous Psychiatric Hospitalization: Yes Smoker: Yes Protective Factors Assessment Baptism Beliefs: No : No Responsible for Young Children: No Employed: No Stable Relationships: No Supportive Family: No Good Rapport with Provider: No Tobacco Cessation at Discharge Tobacco Cessation Medication Prescribed at Discharge: Not Applicable/Non-Smoker Antipsychotic Medications The patient stopped using nicotine replacement medications during the stay and at discharge indicated that he did not have any further tobacco cravings and intends not to smoke. Was recommended that he talk to his outpatient treatment providers should he find that maintaining nicotine abstinence is more difficult than he had anticipated. Total Time Total Time Spent: Greater Than 30 Minutes Total Time Includes: Examination of the patient, Discharge Planning, Medication Reconciliation and Communication with other providers Discharge Data Lab Results 10/15/19 10/15/19 10/15/19 15:27 15:27 15:27 WBC RBC Hgb Hct MCV MCH MCHC RDW Std Deviation RDW Coeff of Demond Plt Count MPV Immature Gran % (Auto) Neut % (Auto) Lymph % (Auto) Dewitt % (Auto) Eos % (Auto) Baso % (Auto) Immature Gran # (Auto) Neut # (Auto) Lymph # (Auto) Dewitt # (Auto) Eos # (Auto) Baso # (Auto) Sodium 140 Potassium 4.1 Chloride 108 H Carbon Dioxide 23 Anion Gap 9.0 BUN 22 H Creatinine 1.46 H Est Cr Clr Drug Dosing 48.4 Est GFR ( Amer) 56.5 Est GFR (Non-Af Amer) 48.7 BUN/Creatinine Ratio 15.3 Glucose 104 H Calcium 9.0 Total Bilirubin 0.6 AST 19 ALT 29 Alkaline Phosphatase 50 Total Protein 7.3 Albumin 3.9 Globulin 3.4 Albumin/Globulin Ratio 1.1 Triglycerides Cholesterol LDL Cholesterol, Calc VLDL Cholesterol, Calc HDL Cholesterol Cholesterol/HDL Ratio TSH 2.570 Urine Color Urine Appearance Urine pH Ur Specific Shannon Urine Protein Urine Glucose (UA) Urine Ketones Urine Blood Urine Nitrite Urine Bilirubin Urine Urobilinogen Ur Leukocyte Esterase Salicylates < 1.7 L Urine Opiates Screen Ur Methadone, Qual Acetaminophen < 2 L Urine Barbiturates Ur Phencyclidine (PCP) U Amphetamin/Meth Scrn MDMA (Ecstasy) Screen U Benzodiazepines Scrn Ur Cocaine Metabolite U Marijuana (THC) Screen Ethyl Alcohol mg/dL < 3.0 10/15/19 10/15/19 10/15/19 15:28 18:45 18:45 WBC 11.21 H RBC 4.96 Hgb 15.1 Hct 44.9 MCV 90.5 MCH 30.4 MCHC 33.6 RDW Std Deviation 48.0 H RDW Coeff of Demond 14.5 Plt Count 316 MPV 10.1 Immature Gran % (Auto) 0.3 Neut % (Auto) 66.3 Lymph % (Auto) 21.6 Dewitt % (Auto) 10.2 Eos % (Auto) 1.2 Baso % (Auto) 0.4 Immature Gran # (Auto) 0.03 H Neut # (Auto) 7.44 H Lymph # (Auto) 2.42 Dewitt # (Auto) 1.14 H Eos # (Auto) 0.14 Baso # (Auto) 0.04 Sodium Potassium Chloride Carbon Dioxide Anion Gap BUN Creatinine Est Cr Clr Drug Dosing Est GFR ( Amer) Est GFR (Non-Af Amer) BUN/Creatinine Ratio Glucose Calcium Total Bilirubin AST ALT Alkaline Phosphatase Total Protein Albumin Globulin Albumin/Globulin Ratio Triglycerides Cholesterol LDL Cholesterol, Calc VLDL Cholesterol, Calc HDL Cholesterol Cholesterol/HDL Ratio TSH Urine Color Yellow Urine Appearance Clear Urine pH 7.0 Ur Specific Shannon 1.018 Urine Protein Negative Urine Glucose (UA) Negative Urine Ketones Negative Urine Blood Negative Urine Nitrite Negative Urine Bilirubin Negative Urine Urobilinogen Negative Ur Leukocyte Esterase Negative Salicylates Urine Opiates Screen Neg Ur Methadone, Qual Neg Acetaminophen Urine Barbiturates Neg Ur Phencyclidine (PCP) Neg U Amphetamin/Meth Scrn Neg MDMA (Ecstasy) Screen Neg U Benzodiazepines Scrn Neg Ur Cocaine Metabolite Neg U Marijuana (THC) Screen Neg Ethyl Alcohol mg/dL 10/17/19 07:37 WBC RBC Hgb Hct MCV MCH MCHC RDW Std Deviation RDW Coeff of Demond Plt Count MPV Immature Gran % (Auto) Neut % (Auto) Lymph % (Auto) Dewitt % (Auto) Eos % (Auto) Baso % (Auto) Immature Gran # (Auto) Neut # (Auto) Lymph # (Auto) Dewitt # (Auto) Eos # (Auto) Baso # (Auto) Sodium 138 Potassium 4.4 Chloride 108 H Carbon Dioxide 24 Anion Gap 6.0 BUN 27 H Creatinine 1.09 Est Cr Clr Drug Dosing 64.9 Est GFR ( Amer) 80.4 Est GFR (Non-Af Amer) 69.4 BUN/Creatinine Ratio 24.7 H Glucose 98 Calcium 8.9 Total Bilirubin AST ALT Alkaline Phosphatase Total Protein Albumin Globulin Albumin/Globulin Ratio Triglycerides 108 Cholesterol 147 LDL Cholesterol, Calc 96 VLDL Cholesterol, Calc 22 HDL Cholesterol 29 Cholesterol/HDL Ratio 5 TSH Urine Color Urine Appearance Urine pH Ur Specific Shannon Urine Protein Urine Glucose (UA) Urine Ketones Urine Blood Urine Nitrite Urine Bilirubin Urine Urobilinogen Ur Leukocyte Esterase Salicylates Urine Opiates Screen Ur Methadone, Qual Acetaminophen Urine Barbiturates Ur Phencyclidine (PCP) U Amphetamin/Meth Scrn MDMA (Ecstasy) Screen U Benzodiazepines Scrn Ur Cocaine Metabolite U Marijuana (THC) Screen Ethyl Alcohol mg/dL Hospital Course (1) Schizophrenia: 10/16 -longstanding primary thought disorder and noncompliance with antipsychotic medication and outpatient treatment, who was just discharged from our unit 09/30/2019, and has been noncompliant with medication. He is admitted with worsening psychosis, disorganized behavior, not caring for himself, trashing his apartment, and agitated and aggressive behavior. He refuses to see a therapist or blended case finishing machine adjuster, has very limited supports/services, and is in danger of losing his housing due to the severity of his psychotic symptoms, noncompliance with treatment, inability to maintain personal hygiene/health and destruction of his apartment, and aggressive behavior. -File for 303 involuntary commitment hearing to be held tomorrow. We will recommend medications over objection, as his symptoms are extremely unlikely to remit without antipsychotic medication, and as he has been refusing it for the past several months, his symptoms have intensified and his condition has deteriorated, with poor self-care, laboratory evidence of dehydration, and per the 302 petition, he has destroyed his apartment and has been behaving in an aggressive manner in multiple settings in the community. -Continue private room due to severity of psychosis and aggression/agitation. -Order haloperidol 5 mg twice daily (as symptoms improved on this medication when hospitalized at the [facility] several months ago), and 10 mg IM as needed for psychosis and agitation, as well as lorazepam p.o./IM and benztropine. -FLP and FG ordered for tomorrow for monitoring on an antipsychotic. -He reports medication noncompliance, so I will not resume lamotrigine at this time due to the increased risk of SJS with noncompliance. -Coordinate care with his outpatient psychiatrist, Dr. Campbell, and housing transitions case finishing machine adjuster. He would benefit from an involuntary outpatient commitment and blended case management services. -Patient is excused from groups due to safety concerns. 10/17 -303 hearing held and granted. Will file for a 304 so that he can be on an IOC at discharge. -Patient has been taking haloperidol and Lorazepam, so will continue oral medications. As above, I recommend medications over objection if needed, and he can be seen by a second psychiatrist tomorrow. The plan is to transition him to a long-acting injectable, either Haldol decanoate if he remains on haloperidol, or possibly risperidone constant or Invega Sustenna. -FLP all values within normal limits, fasting glucose 98. -Encourage attention to hygiene, clean clothes, bathing. -Continue medically necessary private room. -Care coordinated with Dr. Campbell who agrees with an HULL. 10/18/19 -The patient remains floridly psychotic, demonstrates delusional denial, and has references to unspecified "dangerous" in his environment. He is grossly neglecting self-care, and, for example, recently left his room and entered the milieu while he was dressed only in his undershorts. Examination of the undershorts revealed that he had defecated in them and they were badly stained. He also has been inadvertently smearing feces on the unit. He is regularly observed responding to internal stimuli, and carries on conversations with unseen persons on a regular basis. At the same time, he has a favorable history of responding to antipsychotic medications, but has not been consistently agreeing to take them. Prior to admission, he reportedly had stopped all of his psychiatric medications. The patient's psychiatric condition is unlikely to improve without the addition of antipsychotic medications, and I agree with Dr. Perez's finding the medication over objections in this case is medically necessary and appropriate. -I will order haloperidol 5 mg p.o. now, and will also enter an order for Haldol 5 mg IM, over the patient's objection if required, for refusal of p.o. medicat ions. -I have also talked to the patient about the option of Haldol decanoate, and the patient says that he will consider this. The plan will be to offer him the opportunity to take this, but it will not be given to him against his will. 10/19 -Patient received haloperidol decanoate 50 mg IM yesterday, and has a second 50 mg injection scheduled for 10/21/2019. -Continue private room and excuse from groups until better control of symptoms and behaviors. 10/20 -continue current treatment plan. 10/21 -received second haloperidol decanoate injection of 50 mg IM today, and discontinue p.o. haloperidol. He will be due for his maintenance injection of haloperidol decanoate 100 mg in 4 weeks, on 11/18/2019. -File for 304 involuntary outpatient commitment with hearing to be scheduled at the end of the week. -Refer to the [facility] for blended case management. Case discussed with [facility] last week, we have requested that his case finishing machine adjuster meet with him here in the hospital to start developing rapport and engage him in treatment. 10/22 - Continue treatment plan as outlined above - 304 IOC hearing scheduled for 10/25 at 09:30 - Pt to meet with outbound telemarketing representative from [employer] this afternoon - Pt has been referred for case management through the [facility], reportedly to begin intake paperwork with patient tomorrow morning 10/23 -continue to encourage patient to engage in treatment, he is typically able to tolerate only a few minutes of interaction. [facility] intake was started today, but he was unable to complete it. Continue lamotrigine which may be helpful for irritability. -Care coordinated with his outpatient psychiatrist, Dr. Campbell (follow-up with her 11/11/2019). We are attempting to contact [facility] to schedule his injections there; next Haldol Decanoate due 11/18/2019. 10/24 - Discussed some intermittent decompensation in psychotic symptoms since switching to Haldol decanoate, consideration at this time is to continue oral supplementation until his next maintenance injection (suggesting at least 150mg IM), or to provide an additional 50mg IM injection of Haldol decanoate to target these behaviors. - While patient may be experiencing a brief regression of his condition, he does have increased outpatient support and will be discharged on a 304 involuntary outpatient commitment to assist with safety and compliance. - Today's concern is that patient is unwilling to entertain conversations about resuming oral haloperidol and is, at least at this time, stating he is not planning to continue antipsychotics in HULL form - will continue to offer education and encourage compliance to reduce risk of decompensation and quite possibly loss of housing. Despite these reports, his behavior is reportedly improved from yesterday - At this point, it is felt the risks of committing patient for further ongoing involuntary inpatient commitment (with patient's limited responsiveness to treatment) are felt to outweigh any perceived benefit patient may receive from the short-duration hospitalization. He is not, at this time, demonstrating behavior that would suggest acute safety risk. - Pt will of course be reassessed tomorrow morning prior to his 304 IOC hearing to determine if discharge home is appropriate at that time 10/25 -After experiencing what appeared to be a brief regression in his condition yesterday, today the patient's thought content is devoid of any psychotic f eatures, and he does not appear to be experiencing any perceptual disturbances. -The patient was able to be convinced that it will be necessary for him to continue to receive Haldol Decanoate injections every 4 weeks on an outpatient basis, as recommended by his outpatient psychiatrist and treatment team. He does allow that he recognizes that his condition has improved since receiving the Haldol decanoate dose, and as that he had been "hoping" that he was not going to need to get more "shots," but does agree that he will be adherent. -He has been restarted on lamotrigine 25 mg daily at the beginning of this week, and he will be eligible to have his dose of lamotrigine increased, as indicated, to 50 mg on or about 11/02/2019. The patient has been advised that he will probably need to have his lamotrigine further titrated. -The patient is sleeping well with temazepam 15 mg at bedtime. Multiple different psychiatric medications antibiotics have not been effective, and despite the risks of temazepam which have been clearly explained to the patient, the treatment team agrees that in his case the risk of temazepam is outweighed by the demonstrated benefit; namely that he is able to experience restorative sleep. (2) Noncompliance with treatment: 10/16 -proceed with involuntary commitment, will recommend medications over objection and long-acting injectable antipsychotic, with an involuntary outpatient commitment at the time of discharge. 10/18 -Medications over objection authorize (see above). We will begin haloperidol 5 mg IM for refusal of p.o. Haldol. -The patient is not sleeping. He responded favorably to a brief trial of temazepam during his last visit and this will be reinstituted. -The goal is eventually to convince the patient of the necessity of taking a Depo form of his medications, such as Haldol decanoate. 10/20 -received first Haldol Decanoate 50 mg IM injection 10/18/2019, and second injection scheduled for tomorrow. Will schedule a 304 tomorrow so that he will be discharged on a 304 IOC. 10/22 - Received second Haldol Decanoate injection of 50mg IM on 10/21/2019 - recommending maintenance dose of haloperidol decanoate 100 mg in 4 weeks, on 11/18/2019. 10/24 - Development in willingness to comply with outpatient medication recommendations as listed above - Continue with plan that patient be discharged on a 304 IOC to promote outpatient support and compliance - Pt has ongoing support from [employer] outbound telemarketing representative, has agreed to a case finishing machine adjuster who has already met with the patient during this hospitalization - patient is verbalizing that he is agreeable with continuing to work with these individuals 10/25 -Today, the patient admitted that he is "not sure" that he will need further psychiatric medications because he thought that perhaps the 2 injections of haloperidol decanoate that he received would be sufficient. However, when it was explained to him that he will continue to need "booster injections" about every 4 weeks, he indicated understanding and said that he would agree to adhere with this recommendation. (3) Dehydration: 10/16 -BUN 22 and creatinine 1.46 on presentation yesterday; encourage fluids, recheck BMP tomorrow. 10/17 -appears to be drinking while here, and creatinine today has normalized at 1.09. BUN 27. (4) Nicotine addiction: Offer patch and gum as needed for cravings. 10/25 -Patient stopped requiring nicotine replacement fairly early in the hospital stay, and at discharge he says that he is not experiencing any nicotine cravings, and adds "I cannot afford to smoke anyway," and says that he would prefer not to use further nicotine replacement. The treatment team is in agreement with the patient's request, given that he has been nicotine free for some time now. Mental Health & Subst Abuse Tx Psychiatrist Name of Psychiatrist: [facility] - Dr. Campbell Psychiatrist's Date of Appointment with Psychiatrist: 11/11/19 Time of Appointment with Psychiatrist: 11:00 a.m. Psychiatric Appointment Comment: [address], [address], [place] [address] Psychiatrist Release of Information: Obtained, Reviewed and Signed Farm Operator Name of Farm Operator: Antony Zavaleta Phone Number for Farm Operator: Time of Appointment with Farm Operator: Utilize as needed Case Management Appointment Comment: [address], [place] [address] Farm Operator Release of Information: Obtained, Reviewed and Signed Post Discharge Appointments Primary Care Physician Name Of Family Doctor: Saundra Segundo Primary [facility] Time of Appointment with PCP: Please follow up as needed Provider Appointment Comment: [address] [facility] Release of Information: Obtained, Reviewed and Signed Smoking Cessation Counseling Tobacco Cessation Medication Prescribed at Discharge: Not Applicable/Non-Smoker Contact Information Discharge Discharge Address: [address] [place] [address], [place] [address] Discharge Plan Discharge Items Patient Disposition: Home - Home Health Services Reason For Visit: PARANOID SCHIZOPHRENIA Discharge Diagnosis: Schizophrenia Activity: Resume your previous activity Non-emergency contact: Primary Care Provider and Psychiatrist Call non-emergency contact if: you have any medication questions and your symptoms worsen Follow-up/Referrals: Trip Segundo MD [Primary Care Provider] - Diet: Regular Addtl Attending Provider Instructions: SPECIAL CARE INSTRUCTIONS: 1. Follow through with your scheduled aftercare appointments. If unable to keep an appointment, please call to reschedule. 2. Take your medication only as prescribed. Medication should not be changed or stopped without the approval of your doctor. In the event of worsening symptoms or concerns about side effects, contact your doctor immediately. 3. Utilize new healthy coping skills, anger management skills, and stress management skills learned during your hospitalization. Journal feelings and process them with a support person. Identify stressors or situations that may result in relapse, deterioration or inappropriate behaviors and develop a plan to deal with those issues. 4. If your coping skills are ineffective and you are in crisis, contact your outpatient providers for direction. If unable to reach your providers, please call the CAN HELP LINE AT or go to the closest Emergency Room. 5. Avoid alcohol and un-prescribed drugs. 6. You have been provided with the Mental Health Advance Directives Pamphlet for your review. AFTERCARE APPOINTMENTS: * Please call your insurance company prior to your scheduled appointment to confirm your aftercare providers are covered. Take your insurance information to your appointments. WHO TO CALL AND WHEN: Medical Emergencies: For questions or emergencies related to your hospital stay, please contact the Inpatient Behavioral Health Unit at [phone]. A advanced practice psychiatric nurse is on-call 20/03 for the Behavioral Health Unit for emergencies At any time you feel your situation is an emergency, you may also call 911 immediately. Your Doctors Instructions noted above were prepared by provider Kyle Lechuga MD. Addtl Resolution Rep Provider Instructions: Your next dose of Haldol Decanoate injection 100 - 150 mg is due on 11/18/19. (Most recent previous dose was on 10/21/19.) Pending Studies at Discharge: No Stand-Alone Forms: [facility], Smoking Cessation, Suicide Prevention Resources Medications and DC Order Prescriptions: New haloperidol decanoate [Haldol Decanoate] 100 mg/mL solution See Rx Instructions .ROUTE .COMPLEX Qty: 5 RF: 0 lamotrigine [Lamictal] 25 mg Tablet 25 mg PO QAM Qty: 30 RF: 0 temazepam 15 mg Capsule 15 mg PO HSZ PRN (Reason: Sleep) Qty: 30 RF: 0 lorazepam 1 mg Tablet 1 mg PO Q8H Qty: 20 RF: 2 Discontinued lamotrigine 25 mg tablet 25 mg PO DAILY RF: 0 temazepam 15 mg capsule 15 mg PO DAILY RF: 0 Discharge Orders: Discharge Order (Routine); Ordered 10/25/19 Ordered By: Kyle Lechuga Admission Data Admit Date/Time: 10/16/19 02:26 Attending Provider: Aliyah Perez Admit Provider: Babar Bernardo Primary Care Provider: Trip Segundo Other Interventions: Discharge Summary Assessment (RN) Last Done: 10/25/19 10:30 PSY Interdisciplinary Discharge Planning Last Done: 10/25/19 10:32 DC Date/Time DO NOT enter until pt leaves facility: 10/25/19 10:45 C[place] [address] D/C day mgmt > 30 min Patient Type Established History Expanded Problem Focused Exam Expanded Problem Focused Medical Decision Making Moderate Complexity Diagnoses Schizophrenia F20.9 Noncompliance with treatment Z91.19 Dehydration E86.0 Nicotine addiction F17.200 Time Spent (min) 60
== END 2019-10-25 10:45 | disposition home health service (06) | DRG 885 ==
LOC: ED 14:43 → 3S 10-16 02:26

== ENCOUNTER 2021-08-31 06:13 | Inpatient (IN) ==
--- NOTE | 2021-08-31 06:33 | Emergency Department Note ---
Impression & Plan Nonadherence to medication, Hx of schizophrenia, Mood disorder ED Provider Note NAME: TRIP EDMONDSON AGE: 71 SEX: M : 1950 ARRIVES VIA: [employer] INFORMANT: patient, ED PROVIDER(S): Sebastian Craig MD Chief Complaint: Possible mental wellness issue HPI: Patient reportedly had been at a [employer] earlier this morning where he had pulled down his pants to expose himself to the woman at the [employer] per police report. They did bring him here as they were concerned as he was mumbling and does have a known history of mental wellness issues and schizophrenia. The patient denies any current pains. Patient denies any SI, HI but difficult to express whether not he has AVH. Patient states that he lives in a home in [place] and lives by himself. Patient states that he has been taking temazepam as well as Ritalin. Patient does admit to alcohol tobacco use and states that he is vaccinated for COVID-19. The patient denies any drug use. Patient states he feels safe at home. ROS: See HPI for pertinent positives and negatives. A total of 10 systems were reviewed and otherwise negative. Past medical history: See below Surgical history: See below Social history: See below Physical Exam: GENERAL: NAD, non-toxic. EYE EXAM: Normal conjunctiva. PERRL, no anisocoria and EOM's grossly intact w/o pain. OROPHARYNX: Moist mucus membranes. Poor dentition. NECK: Supple, no nuchal rigidity, no adenopathy, non-tender. No signs of meningismus. LUNGS: Clear to auscultation. Normal chest wall mechanics. HEART: NSR, no MRG. ABDOMEN: Abdomen soft, non-tender, normo-active bowel sounds, no masses, no rebound or guarding. BACK: No CVA TTP. SKIN: No rashes and no bruising. UPPER EXTREMITIES: Upper extremities are grossly normal. LOWER EXTREMITIES: Grossly normal, no edema. NEURO EXAM: A&O x3, cranial nerves II-XII grossly intact, normal speech, moves all 4 extremities on command w/o issue. Differential diagnoses: Mood disorder, infection, hypoglycemia, electrolyte abnormalities, cardiac sources, intracerebral event, toxicologic, trauma, neurologic, as well as other pathologies. Course: Patient was seen and evaluated the bedside. Full history physical exam was performed. Imaging: See below MDM: Patient was seen due to concern for mental wellness. Patient stated that he was taking medications but telephonic case manager was able to note that the patient may have not filled some of his medications. Patient did have blood work completed and was deemed medically cleared. CT head is negative. Nursing did report the patient had a wet sounding cough so two-view chest x-ray was ordered. Patient is a smoker. CT head negative. Chest x-ray shows no new changes. Patient did have higher blood pressure and thus clonidine Ativan were ordered. Patient was signed out to the evening physician Dr. Sullivan pending evaluation and disposition. Past Med/Surg History Medical History Bronchitis Chronic obstructive pulmonary disease Dehydration Dementia BOSCH (dyspnea on exertion) History of leukemia Hypertension Nicotine addiction Non-compliant patient Noncompliance with treatment NSVT (nonsustained ventricular tachycardia) IN SETTING OF INFLUENZA AUG 2017 - DECLINED TO SEE MANAGER FLIGHT PER MEDICAL RECORD Schizophrenia Schizophrenia Smoker Surgical History History of tooth extraction Hx of right cataract extraction Family History Other Family history non-contributory Social History Smoking Status: Current every day smoker Tobacco Type: Cigarettes Cigarettes Per Day: 2ppd; Second Hand Exposure: No; Hx Alcohol Use: No Hx Substance Use: No Preferred Language: Yi Communication Ability: Effective Files Supervisor Required: No Beliefs That Will Affect Care: None Current Living Situation: Alone Feels Safe at Home: Declines to Answer Assistive Devices: None Immunizations: Reportedly vaccinated for COVID-19 Allergies Allergies Allergy/AdvReac Type Severity Reaction Status Date / Time No Known Allergies Allergy Verified 10/15/19 15:03 Home Meds Previous Rx's Medication Instructions Recorded haloperidol decanoate 100 mg/mL See Rx Instructions .ROUTE 10/25/19 intramuscular solution (Haldol .COMPLEX #5 ml Decanoate) temazepam 15 mg capsule 15 mg PO HSZ PRN #30 cap 10/25/19 Results & Data (ED) Vital Signs Vital Signs - 24 hr 08/31/21 06:22 08/31/21 06:29 08/31/21 08:25 Temperature 36.2 C L 36.2 C L Temperature Source Oral Oral Pulse Rate 107 H Pulse Rate [Finger] 107 H 89 Pulse Rhythm [Finger] Regular Pulse Strength [Finger] Normal Respiratory Rate 20 20 20 Respiratory Effort / Characteristics Non-Labored Spontaneous Respiratory Depth Normal Respiratory Pattern Regular Blood Pressure 204/155 H Blood Pressure [Left Arm] Blood Pressure [Right Arm] 204/155 H 173/98 H Blood Pressure Mean 171 Blood Pressure Mean [Left Arm] Blood Pressure Mean [Right Arm] 171 123 Blood Pressure Position [Right Arm] Lying Pulse Oximetry 97 97 94 Oxygen Delivery Method Room Air Room Air Room Air Sepsis Recent Fever Within 48 Hours No Sepsis New/Unexplained Change in Mental Status N/A Sepsis Action Taken by Nursing No Action Required 08/31/21 11:35 08/31/21 13:00 08/31/21 14:37 Temperature 36.9 C 36.8 C Temperature Source Oral Oral Pulse Rate Pulse Rate [Finger] 95 H 99 H Pulse Rhythm [Finger] Pulse Strength [Finger] Respiratory Rate 20 18 Respiratory Effort / Characteristics Non-Labored Respiratory Depth Normal Respiratory Pattern Blood Pressure Blood Pressure [Left Arm] 185/115 H 177/128 H 177/108 H Blood Pressure [Right Arm] 180/124 H Blood Pressure Mean Blood Pressure Mean [Left Arm] 138 144 131 Blood Pressure Mean [Right Arm] 142 Blood Pressure Position [Right Arm] Pulse Oximetry 97 97 Oxygen Delivery Method Room Air Room Air Sepsis Recent Fever Within 48 Hours Sepsis New/Unexplained Change in Mental Status Sepsis Action Taken by Care Home Medications Current Medication List: was personally reviewed by me Laboratory Data Attestation: I reviewed the patient's lab results. Result diagrams: 08/31/21 06:53 08/31/21 06:53 Lab Results 08/31/21 08/31/21 08/31/21 Range/Units 06:53 06:53 06:53 WBC 8.46 (4.8-10.8) K/uL RBC 4.81 (4.7-6.1) M/uL Hgb 14.3 (14.0-18.0) g/dL Hct 43.4 (42-52) % MCV 90.2 (80-100) fL MCH 29.7 (25-34) pg MCHC 32.9 (32-36) g/dL RDW Std Deviation 49.4 H (36.4-46.3) fL RDW Coeff of Demond 14.9 H (11.5-14.5) % Plt Count 301 (130-400) K/uL MPV 9.8 (7.4-10.4) fL Immature Gran % (Auto) 0.1 % Neut % (Auto) 77.5 % Lymph % (Auto) 11.8 % [place] % (Auto) 8.9 % Eos % (Auto) 1.1 % Baso % (Auto) 0.6 % Neut # (Auto) 6.56 H (1.4-6.5) K/uL Lymph # (Auto) 1.00 L (1.2-3.4) K/uL [place] # (Auto) 0.75 H (0.11-0.59) K/uL Eos # (Auto) 0.09 (0-0.5) K/uL Baso # (Auto) 0.05 (0-0.2) K/uL Immature Gran # (Auto) 0.01 (0.00-0.02) K/uL Sodium 138 (136-145) mmol/L Potassium 3.4 L (3.5-5.1) mmol/L Chloride 105 (98-107) mmol/L Carbon Dioxide 28 (21-32) mmol/L Anion Gap 5.0 (3-11) BUN 9 (7-18) mg/dl Creatinine 0.96 (0.6-1.4) mg/dl Est Cr Clr Drug Dosing Not Reportable Est GFR ( Amer) 92.4 ml/min Est GFR (Non-Af Amer) 79.8 ml/min BUN/Creatinine Ratio 9.6 L (10-20) Glucose 114 H (70-99) mg/dl Calcium 9.0 (8.5-10.1) mg/dl Total Bilirubin 0.7 (0.2-1) mg/dl AST 15 (15-37) U/L ALT 16 (12-78) Alkaline Phosphatase 43 L (45-117) U/L Total Protein 7.1 (6.4-8.2) gm/dl Albumin 3.6 (3.4-5.0) gm/dl Globulin 3.5 (2.5-4.0) gm/dl Albumin/Globulin Ratio 1.0 (0.9-2) TSH 2.330 (0.300-4.500) uIu/ml Urine Color Urine Appearance (Clear) Urine pH (4.5-7.5) Ur Specific [place] (1.000-1.030) Urine Protein (Negative) Urine Glucose (UA) (Negative) Urine Ketones (Negative) Urine Blood (Negative) Urine Nitrite (Negative) Urine Bilirubin (Negative) Urine Urobilinogen (Negative) Ur Leukocyte Esterase (Negative) Salicylates < 1.7 L (2.8-20) mg/dl Urine Opiates Screen (Neg) Ur Methadone, Qual (Neg) Acetaminophen < 2 L (10-30) ug/ml Urine Barbiturates (Neg) Ur Phencyclidine (PCP) (Neg) U Amphetamin/Meth Scrn (Neg) MDMA (Ecstasy) Screen (Neg) U Benzodiazepines Scrn (Neg) Ur Cocaine Metabolite (Neg) U Marijuana (THC) Screen (Neg) Ethyl Alcohol mg/dL (0-3) mg/dl SARS-CoV-2, RNA, NAAT (NEGATIVE) 08/31/21 08/31/21 08/31/21 Range/Units 06:53 06:53 07:10 WBC (4.8-10.8) K/uL RBC (4.7-6.1) M/uL Hgb (14.0-18.0) g/dL Hct (42-52) % MCV (80-100) fL MCH (25-34) pg MCHC (32-36) g/dL RDW Std Deviation (36.4-46.3) fL RDW Coeff of Demond (11.5-14.5) % Plt Count (130-400) K/uL MPV (7.4-10.4) fL Immature Gran % (Auto) % Neut % (Auto) % Lymph % (Auto) % [place] % (Auto) % Eos % (Auto) % Baso % (Auto) % Neut # (Auto) (1.4-6.5) K/uL Lymph # (Auto) (1.2-3.4) K/uL [place] # (Auto) (0.11-0.59) K/uL Eos # (Auto) (0-0.5) K/uL Baso # (Auto) (0-0.2) K/uL Immature Gran # (Auto) (0.00-0.02) K/uL Sodium (136-145) mmol/L Potassium (3.5-5.1) mmol/L Chloride (98-107) mmol/L Carbon Dioxide (21-32) mmol/L Anion Gap (3-11) BUN (7-18) mg/dl Creatinine (0.6-1.4) mg/dl Est Cr Clr Drug Dosing Est GFR ( Amer) ml/min Est GFR (Non-Af Amer) ml/min BUN/Creatinine Ratio (10-20) Glucose (70-99) mg/dl Calcium (8.5-10.1) mg/dl Total Bilirubin (0.2-1) mg/dl AST (15-37) U/L ALT (12-78) Alkaline Phosphatase (45-117) U/L Total Protein (6.4-8.2) gm/dl Albumin (3.4-5.0) gm/dl Globulin (2.5-4.0) gm/dl Albumin/Globulin Ratio (0.9-2) TSH (0.300-4.500) uIu/ml Urine Color Yellow Urine Appearance Clear (Clear) Urine pH >= 9.0 H (4.5-7.5) Ur Specific [place] 1.013 (1.000-1.030) Urine Protein Negative (Negative) Urine Glucose (UA) Negative (Negative) Urine Ketones Trace H (Negative) Urine Blood Negative (Negative) Urine Nitrite Negative (Negative) Urine Bilirubin Negative (Negative) Urine Urobilinogen Negative (Negative) Ur Leukocyte Esterase Negative (Negative) Salicylates (2.8-20) mg/dl Urine Opiates Screen (Neg) Ur Methadone, Qual (Neg) Acetaminophen (10-30) ug/ml Urine Barbiturates (Neg) Ur Phencyclidine (PCP) (Neg) U Amphetamin/Meth Scrn (Neg) MDMA (Ecstasy) Screen (Neg) U Benzodiazepines Scrn (Neg) Ur Cocaine Metabolite (Neg) U Marijuana (THC) Screen (Neg) Ethyl Alcohol mg/dL < 3.0 (0-3) mg/dl SARS-CoV-2, RNA, NAAT NEGATIVE (NEGATIVE) 08/31/21 Range/Units 07:10 WBC (4.8-10.8) K/uL RBC (4.7-6.1) M/uL Hgb (14.0-18.0) g/dL Hct (42-52) % MCV (80-100) fL MCH (25-34) pg MCHC (32-36) g/dL RDW Std Deviation (36.4-46.3) fL RDW Coeff of Demond (11.5-14.5) % Plt Count (130-400) K/uL MPV (7.4-10.4) fL Immature Gran % (Auto) % Neut % (Auto) % Lymph % (Auto) % [place] % (Auto) % Eos % (Auto) % Baso % (Auto) % Neut # (Auto) (1.4-6.5) K/uL Lymph # (Auto) (1.2-3.4) K/uL [place] # (Auto) (0.11-0.59) K/uL Eos # (Auto) (0-0.5) K/uL Baso # (Auto) (0-0.2) K/uL Immature Gran # (Auto) (0.00-0.02) K/uL Sodium (136-145) mmol/L Potassium (3.5-5.1) mmol/L Chloride (98-107) mmol/L Carbon Dioxide (21-32) mmol/L Anion Gap (3-11) BUN (7-18) mg/dl Creatinine (0.6-1.4) mg/dl Est Cr Clr Drug Dosing Est GFR ( Amer) ml/min Est GFR (Non-Af Amer) ml/min BUN/Creatinine Ratio (10-20) Glucose (70-99) mg/dl Calcium (8.5-10.1) mg/dl Total Bilirubin (0.2-1) mg/dl AST (15-37) U/L ALT (12-78) Alkaline Phosphatase (45-117) U/L Total Protein (6.4-8.2) gm/dl Albumin (3.4-5.0) gm/dl Globulin (2.5-4.0) gm/dl Albumin/Globulin Ratio (0.9-2) TSH (0.300-4.500) uIu/ml Urine Color Urine Appearance (Clear) Urine pH (4.5-7.5) Ur Specific [place] (1.000-1.030) Urine Protein (Negative) Urine Glucose (UA) (Negative) Urine Ketones (Negative) Urine Blood (Negative) Urine Nitrite (Negative) Urine Bilirubin (Negative) Urine Urobilinogen (Negative) Ur Leukocyte Esterase (Negative) Salicylates (2.8-20) mg/dl Urine Opiates Screen Neg (Neg) Ur Methadone, Qual Neg (Neg) Acetaminophen (10-30) ug/ml Urine Barbiturates Neg (Neg) Ur Phencyclidine (PCP) Neg (Neg) U Amphetamin/Meth Scrn Neg (Neg) MDMA (Ecstasy) Screen Neg (Neg) U Benzodiazepines Scrn Neg (Neg) Ur Cocaine Metabolite Neg (Neg) U Marijuana (THC) Screen Neg (Neg) Ethyl Alcohol mg/dL (0-3) mg/dl SARS-CoV-2, RNA, NAAT (NEGATIVE) Administered Medications Discontinued Medications Clonidine HCl (Clonidine Hcl 0.1 Mg Tab) 0.1 mg PO NOW ONE Stop: 08/31/21 13:16 Last Admin: 08/31/21 13:41 Dose: 0.1 mg Documented by: [id number] Haloperidol (Haloperidol 5 Mg Tab) 5 mg PO NOW STA Stop: 08/31/21 13:50 Last Admin: 08/31/21 14:30 Dose: 5 mg Documented by: [id number] Lorazepam (Lorazepam 1 Mg Tab) 1 mg PO NOW STA Stop: 08/31/21 13:16 Last Admin: 08/31/21 13:41 Dose: 1 mg Documented by: [id number] Imaging Data Radiologist's Impression: Head CT 08/31/21 06:46 CT SCAN OF THE BRAIN WITHOUT IV CONTRAST CLINICAL HISTORY: Change in mental status. Psychiatric clearance. COMPARISON STUDY: CT of the brain dated 05/18/2020. TECHNIQUE: Unenhanced axial CT scan of the brain is performed from the vertex to the skull base. A dose lowering technique was utilized adhering to the principles of ALARA. CT DOSE: 1228.53 mGy.cm FINDINGS: Brain parenchyma: There are age-related involutional changes noting mild subcortical and periventricular microangiopathic change. There is no hemorrhage, mass effect, or evidence of acute territorial ischemia by CT criteria. A chronic lacunar infarct is noted in the left internal capsule. Isabel-white matter differentiation is preserved. No extra-axial fluid collection is seen. Ventricles, sulci, cisterns: Prominent secondary to involutional change. Intracranial vasculature: There is atherosclerotic calcification of the cavernous carotid arteries. Calvarium: Unremarkable. Sinuses and mastoids: The visualized paranasal sinuses are clear. There are small mastoid effusions. Orbits: The bony orbits are grossly intact. There are bilateral ocular lens implants. IMPRESSION: There is no hemorrhage, mass effect, or evidence of acute territorial ischemia by CT criteria. ACT 112: Negative or not required by law. Electronically signed by: Buck Guadarrama M.D. 08/31/2021 7:11 AM Chest X-Ray 08/31/21 08:20 XR chest 2V PA/lateral HISTORY: cough COMPARISON: Chest 09/15/2017. FINDINGS: The heart remains normal in size. No pleural effusions. No pneumothorax. Mild diffuse chronic interstitial thickening most process of the lung bases. This is similar to the prior study. Otherwise, no new focal lung consolidations to suggest pneumonia. No evidence for pulmonary edema. Degenerative changes noted within the thoracic spine. IMPRESSION: No change in the chronic interstitial thickening. No new focal lung consolidations to suggest pneumonia. ACT 112: Negative or not required by law. Electronically signed by: Sean Adame M.D. 08/31/2021 8:53 AM Discharge Plan Visit Data Chief Complaint: Mental Health Evaluation Stated Complaint: mental health eval ED Provider: Sebastian Craig Discharge Problem: Nonadherence to medication, Hx of schizophrenia, Mood disorder Forms Stand Alone Forms: [facility], Suicide Prevention Resources Prescriptions Prescriptions: No Action haloperidol decanoate [Haldol Decanoate] 100 mg/mL solution See Rx Instructions .ROUTE .COMPLEX Qty: 5 RF: 0 temazepam 15 mg Capsule 15 mg PO HSZ PRN (Reason: Sleep) Qty: 30 RF: 0 Referrals Referrals: Trip Segundo MD [Primary Care Provider] -
[2021-08-31 07:12] LABS: Basophils # (auto) 0.05 K/uL (0-0.2); Basophils % (auto) 0.6 %; Eosinophils # (auto) 0.09 K/uL (0-0.5); Eosinophils % (auto) 1.1 %; Hematocrit (blood only) 43.4 % (42-52); Hemoglobin 14.3 g/dL (14.0-18.0); Immature Granulocytes # (auto) 0.01 K/uL (0.00-0.02); Immature Granulocytes % (auto) 0.1 %; Lymphocytes % (auto) 11.8 %; Mean Corpuscular Hemoglobin 29.7 pg (25-34); Mean Corpuscular Hgb Conc 32.9 g/dL (32-36); Mean Corpuscular Volume 90.2 fL (80-100); Mean Platelet Volume 9.8 fL (7.4-10.4); Monocytes # (auto) 0.75 K/uL (0.11-0.59); Monocytes % (auto) 8.9 %; Neutrophils # (auto) 6.56 K/uL (1.4-6.5); Neutrophils % (auto) 77.5 %; Platelet Count 301 K/uL (130-400); RDW Coefficient of Variation 14.9 % (11.5-14.5); RDW Standard Deviation 49.4 fL (36.4-46.3); Red Blood Count 4.81 M/uL (4.7-6.1); White Blood Count 8.46 K/uL (4.8-10.8)
--- NOTE | 2021-08-31 07:12 | CT Scan Report ---
CT SCAN OF THE BRAIN WITHOUT IV CONTRAST CLINICAL HISTORY: Change in mental status. Psychiatric clearance. COMPARISON STUDY: CT of the brain dated 05/18/2020. TECHNIQUE: Unenhanced axial CT scan of the brain is performed from the vertex to the skull base. A do se lowering technique was utilized adhering to the principles of ALARA. CT DOSE: 1228.53 mGy.cm FINDINGS: Brain parenchyma: There are age-related involutional changes noting mild subcortical and periventric ular microangiopathic change. There is no hemorrhage, mass effect, or evidence of acute territorial i schemia by CT criteria. A chronic lacunar infarct is noted in the left internal capsule. Isabel-white m atter differentiation is preserved. No extra-axial fluid collection is seen. Ventricles, sulci, cisterns: Prominent secondary to involutional change. Intracranial vasculature: There is atherosclerotic calcification of the cavernous carotid arteries. Calvarium: Unremarkable. Sinuses and mastoids: The visualized paranasal sinuses are clear. There are small mastoid effusions. Orbits: The bony orbits are grossly intact. There are bilateral ocular lens implants. IMPRESSION: There is no hemorrhage, mass effect, or evidence of acute territorial ischemia by CT crit sarah. ACT 112: Negative or not required by law. Electronically signed by: Buck Guadarrama M.D. 08/31/2021 7:11 AM
[2021-08-31 07:31] LABS: Appearance Urine Clear (Clear); Bilirubin Urine Negative (Negative); Blood Urine Negative (Negative); Color Urine Yellow; Glucose Urine UA Negative (Negative); Ketones Urine Trace (Negative); Leukocyte Esterase Urine Negative (Negative); Nitrite Urine Negative (Negative); Protein Urine Negative (Negative); Specific Gravity Urine 1.013 (1.000-1.030); Urobilinogen Urine Negative (Negative); pH Urine >= 9.0 (4.5-7.5)
[2021-08-31 07:34] LABS: Alanine Aminotransferase 16 (12-78); Albumin Level 3.6 gm/dl (3.4-5.0); Aspartate Aminotransferase 15 U/L (15-37); BUN Creatinine Ratio 9.6 (10-20); Blood Urea Nitrogen 9 mg/dl (7-18); Carbon Dioxide 28 mmol/L (21-32); Chloride 105 mmol/L (98-107); Est GFR (African American) 92.4 ml/min; Est GFR (Non-African American) 79.8 ml/min; Glucose 114 mg/dl (70-99); Potassium 3.4 mmol/L (3.5-5.1); Sodium 138 mmol/L (136-145)
[2021-08-31 07:43] LABS: Alkaline Phosphatase 43 U/L (45-117); Bilirubin,Total 0.7 mg/dl (0.2-1); Globulin 3.5 gm/dl (2.5-4.0); Total Protein 7.1 gm/dl (6.4-8.2)
[2021-08-31 07:44] LABS: Acetaminophen < 2 ug/ml (10-30); Salicylate < 1.7 mg/dl (2.8-20)
[2021-08-31 08:01] LABS: Amphetamines+Metham, Urine Neg (Neg); Barbiturates, Urine Neg (Neg); Benzodiazepine, Urine Neg (Neg); Cocaine, Urine Neg (Neg); MDMA (Ecstacy), Urine Neg (Neg); Methadone, Urine Neg (Neg); Opiate, Urine Neg (Neg); Phencyclidine, Urine Neg (Neg)
--- NOTE | 2021-08-31 08:54 | XRay Report ---
XR chest 2V PA/lateral HISTORY: cough COMPARISON: Chest 09/15/2017. FINDINGS: The heart remains normal in size. No pleural effusions. No pneumothorax. Mild diffuse chron ic interstitial thickening most process of the lung bases. This is similar to the prior study. Otherw ise, no new focal lung consolidations to suggest pneumonia. No evidence for pulmonary edema. Degenera tive changes noted within the thoracic spine. IMPRESSION: No change in the chronic interstitial thickening. No new focal lung consolidations to suggest pneumon ia. ACT 112: Negative or not required by law. Electronically signed by: Sean Adame M.D. 08/31/2021 8:53 AM
[2021-08-31] MEDS ORDERED: cloNIDine HCL 0.1 MG TAB PO ONE (13:15)
[2021-08-31] MEDS ORDERED: LORazepam 1 MG TAB PO STA (13:15)
[2021-08-31] MEDS ORDERED: haloperidoL 5 MG TAB PO STA (13:49)
[2021-08-31 16:03] VITALS: O2SAT 96
[2021-08-31] MEDS ORDERED: NICOTINE POLACRILEX 2 MG GUM MT PRN (17:42)
[2021-08-31] MEDS ORDERED: ACETAMINOPHEN 325 MG TAB PO PRN (17:42)
[2021-08-31] MEDS ORDERED: BISMUTH SUBSALICYLATE LIQD 236 ML PO PRN (17:42)
[2021-08-31] MEDS ORDERED: hydrOXYzine HCl 25 MG TAB PO PRN ×2 (17:42)
[2021-08-31] MEDS ORDERED: SODIUM CHLORIDE 0.65% NA SOLN 45 ML (OCEAN) PRN (17:42)
[2021-08-31] MEDS ORDERED: MAGNESIUM HYDROXIDE SUSP 30 ML UDC PO PRN (17:42)
[2021-08-31] MEDS ORDERED: BENZTROPINE MESYLATE 0.5 MG TAB PO PRN (17:45)
--- NOTE | 2021-08-31 18:12 | Emergency Department Note ---
ED Visit Note The patient was accepted at [address] .
[2021-08-31] MEDS ORDERED: cloNIDine HCL 0.1 MG TAB PO PRN (18:38)
[2021-09-01] MEDS ORDERED: PNEUMOCOCCAL Polysaccharide Vaccine 25mcg/0.5mL vial/Syr IM ONE (01:30)
[2021-09-01] MEDS: LORazepam 1 MG TAB PO PRN ×2 (07:27→17:09)
[2021-09-01] MEDS: haloperidoL 5 MG TAB PO PRN ×2 (07:27→17:09)
[2021-09-01 08:23] LABS: Glucose Fasting 105 mg/dl (70-99)
[2021-09-01 08:29] LABS: Chol HDL Ratio 5; Cholesterol 159 mg/dl (0-200); HDL Cholesterol 34 mg/dl; LDL Cholesterol Calculated 101 mg/dl; Triglycerides 118 mg/dl (0-150); VLDL Cholesterol 24 mg/dl
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
[2021-09-01] MEDS: haloperidoL 5 MG TAB PO SCH ×3 (13:10→20:53)
[2021-09-02] MEDS: haloperidoL 5 MG TAB PO SCH ×2 (08:21→20:59)
[2021-09-02] MEDS: LORazepam 1 MG TAB PO PRN (08:22)
[2021-09-02] MEDS ORDERED: HALOPERIDOL DECANOATE INJ 50 MG/ML VIAL IM ONE (10:58)
--- NOTE | 2021-09-02 12:58 | Psychiatric Progress Note ---
Date of Service September 02, 2021 Impression / Recommendations Impression Mr. Parrish is a 71 yo male with a long hx of psychotic illness, has been maintained in community with supports for past 2 years (unless admitted elsewhere) on haldol decanoate, appears to have decompensated following missed shots but are confirming last dose. 09/02/20: improved, tolerating Haldol. (1) Schizophrenia: 09/02/21: Haldol 100 mg dec today as patient is agreeable (longstanding dose 100-150 mg), continue Haldol PO but decrease to BID. Likely to continue until discharge. 09/01/21: The patient was admitted to the [facility] ([facility]) on q15 min checks (behavioral with suicide precautions) for safety. The patient will participate in group, recreational, and milieu therapies and will be offered additional individual and family sessions as clinically appropriate. He has already received doses of prn Haldol and Ativan with benefit. Will order 10 mg Haldol standing BID starting this afternoon with anticipated haldol dec when confirm last dose. He is agreeable to the Haldol and would like to be discharged as soon as possible. Fasting labs reviewed. (2) Noncompliance with treatment: Inventory Assets Strengths: community supports, voluntary this stay Needs: transitional housing, haldol dec Risk Factors Assessment Male: Yes : Yes Do You Have Access To A Gun?: No Mental Health Diagnoses: Yes Substance Use Disorders: No Previous Attempt: Yes Previous Psychiatric Hospitalization: Yes Protective Factors Assessment Employed: No Interval History Identifying Information ZAK PARRISH is a 71-year-old M who currently lives in transitional housing, has a history of noncompliance with meds for schizophrenia, and was admitted on 08/31/21 17:43 on a 201 voluntary commitment for disorganized behavior. Chief Complaint "I'm not dealing with you". Review of Systems Sleep Information Total Hours of Sleep: 5.5 Sleep Comments: pt given vistaril per rn. pt on q-15 minute checks Meal Information Percent Meal Consumed - Breakfast: 100 Percent Meal Consumed - Lunch: 100 Percent Meal Consumed - Dinner: 100 Subjective Subjective Patient was seen & assessed and interval progress reviewed with nursing and social work. Remains paranoid and not believing I am a doctor. Compliant with meds with prompts. Otherwise talks to self clearly but organized when asks for items from staff like coffee. No sexualized behaviors. Physical Exam Psychiatric Orientation: alert; + not oriented x 3 Apperance: + disheveled Eye Contact: + poor eye contact Motor Behavior: no abnormal motor movements Speech: + abnormal rate/rhythm/volume of speech Affect: + blunted affect Mood: + irritable mood Thought Process: + tangential thought process and + concrete thought process Thought Content: + delusions Suicidal Thoughts: denies suicidal thoughts Homicidal Thoughts: denies homicidal thoughts Hallucinations: + auditory hallucinations (and talks to self); no visual hallucinations Cognition: language grossly intact; + attention not intact Estimated Intelligence: consistent with education level Insight: + poor insight Judgement: + poor judgement Vital Signs (Past 24 Hours) Last Vital Signs Temp 36.6 C 09/01/21 06:44 Pulse 108 H 09/01/21 06:44 Resp 18 09/01/21 06:44 BP 126/96 09/01/21 06:44 Pulse Ox 96 08/31/21 16:00 Results & Data ([facility]) Current Inpatient Medications Current Inpatient Medications: Current Inpatient Medications Acetaminophen (Acetaminophen 325 Mg Tab) 650 mg PO Q4H PRN PRN Reason: Headache or Minor Fever Stop: 09/30/21 17:41 Al Hydrox/Mg Hydrox/Simethicone (Aluminum/Magnesium Susp 30 Ml Udc) 30 ml PO Q4H PRN PRN Reason: GI Upset Stop: 09/30/21 17:41 Benztropine Mesylate (Benztropine Mesylate 0.5 Mg Tab) 0.5 mg PO Q4 PRN PRN Reason: dystonia/thick tongue Stop: 09/30/21 17:44 Bismuth Subsalicylate (Bismuth Subsalicylate Liqd 236 Ml) 15 ml PO PRN PRN PRN Reason: Loose Stool Stop: 09/30/21 17:41 Clonidine HCl (Clonidine Hcl 0.1 Mg Tab) 0.1 mg PO Q8 PRN PRN Reason: Hypertension Stop: 09/30/21 18:37 Haloperidol (Haloperidol 5 Mg Tab) 5 mg PO Q4 PRN PRN Reason: anxiety/agitation Stop: 09/30/21 17:44 Last Admin: 09/01/21 17:09 Dose: 5 mg Documented by: Haloperidol (Haloperidol 5 Mg Tab) 5 mg PO BID NARAYAN Stop: 10/02/21 20:59 Hydroxyzine HCl (Hydroxyzine Hcl 25 Mg Tab) 50 mg PO HSZ PRN PRN Reason: Insomnia Stop: 09/30/21 17:41 Last Admin: 09/01/21 21:19 Dose: 50 mg Documented by: Hydroxyzine HCl (Hydroxyzine Hcl 25 Mg Tab) 25 mg PO Q4H PRN PRN Reason: Anxiety Stop: 09/30/21 17:41 Lorazepam (Lorazepam 1 Mg Tab) 1 mg PO Q6 PRN PRN Reason: Anxiety/Agitation Stop: 09/30/21 17:44 Last Admin: 09/02/21 08:22 Dose: 1 mg Documented by: Magnesium Hydroxide (Magnesium Hydroxide Susp 30 Ml Udc) 30 ml PO DAILY PRN PRN Reason: Constipation Stop: 09/30/21 17:41 Nicotine Polacrilex (Nicotine Polacrilex 2 Mg Gum) 2 piece MT PRN PRN PRN Reason: Nicotine Withdrawal Stop: 09/30/21 17:41 Sodium Chloride (Sodium Chloride 0.65% Na Soln 45 Ml ([place])) 1 - 2 sprays NA PRN PRN PRN Reason: Nasal Dryness/Congestion Stop: 09/30/21 17:41 Temazepam (Temazepam 15 Mg Capsule) 15 mg PO HSZ PRN PRN Reason: Sleep Stop: 09/30/21 17:44 Mental Health & Subst Abuse Tx Psychiatrist Name of Psychiatrist: [facility]- Dr. Cooney Psychiatrist's Psychiatric Appointment Comment: [address] [place] [address], [place] Therapist Name of Therapist: None Director Shopper Marketing Name of Director Shopper Marketing: [employer] Phone Number for Director Shopper Marketing: [phone] Post Discharge Appointments Primary Care Physician Name Of Family Doctor: Dr. Segundo Primary Care Provider Appointment Comment: [address], [place] [address]
[2021-09-02] MEDS ORDERED: COUGH DROP (SUGAR FREE) LOZ 24 LOZ/1 BOX BUCCAL PRN (17:33)
[2021-09-02] MEDS: TEMAZEPAM 15 MG CAPSULE PO PRN (20:59)
[2021-09-02] MEDS: ALUMINUM/MAGNESIUM SUSP 30 ML UDC PO PRN (21:01)
[2021-09-03] MEDS: ALUMINUM/MAGNESIUM SUSP 30 ML UDC PO PRN ×3 (05:46→21:04)
[2021-09-03] MEDS: haloperidoL 5 MG TAB PO SCH ×2 (08:53→20:01)
--- NOTE | 2021-09-03 10:16 | Psychiatric Progress Note ---
Date of Service September 03, 2021 Impression / Recommendations Impression Mr. Parrish is a 71 yo male with a long hx of psychotic illness, has been maintained in community with supports for past 2 years (unless admitted elsewhere) on haldol decanoate, appears to have decompensated following missed shots but are confirming last dose. 09/03/20: improving, signed 72 hour notice (1) Schizophrenia: 09/03/21: patient is requesting discharge and although we anticipated another week, he appears to be pretty close to baseline from previous interactions. His bennett are chronic and do not appear to be interfering with his ADLs on the unit and he does have CM with [employer] and will have an additional visit from the Office of Aging as they were unhappy with the cleanliness of his housing unit. They do not have availability of hotel for p atient until tomorrow. We did confirm that his case with closed with [facility] and psych clinic but he is agreeable to follow up with [facility] which will occur prior to his next decanoate injection being due. Certainly he has a history of noncompliance with outpatient treatment, but we do not plan to pursue a 304 outpatient commitment as he was admitted on a voluntary, has responded quickly to medications, and doesn't meet necessary commitment criteria which include or serious disability without the care provided. 09/02/21: Haldol 100 mg dec today as patient is agreeable (longstanding dose 100-150 mg), continue Haldol PO but decrease to BID. Likely to continue until discharge. 09/01/21: The patient was admitted to the [facility] ([facility]) on q15 min checks (behavioral with suicide precautions) for safety. The patient will participate in group, recreational, and milieu therapies and will be offered additional individual and family sessions as clinically appropriate. He has already received doses of prn Haldol and Ativan with benefit. Will order 10 mg Haldol standing BID starting this afternoon with anticipated haldol dec when confirm last dose. He is agreeable to the Haldol and would like to be discharged as soon as possible. Fasting labs reviewed. (2) Noncompliance with treatment: Inventory Assets Strengths: community supports, voluntary this stay Needs: transitional housing, haldol dec Risk Factors Assessment Male: Yes : Yes Do You Have Access To A Gun?: No Mental Health Diagnoses: Yes Substance Use Disorders: No Previous Attempt: Yes Previous Psychiatric Hospitalization: Yes Protective Factors Assessment Employed: No Interval History Identifying Information ZAK PARRISH is a 71-year-old M who currently lives in transitional housing, has a history of noncompliance with meds for schizophrenia, and was admitted on 08/31/21 17:43 on a 201 voluntary commitment for disorganized behavior. Chief Complaint "When can I leave here? I've done what you asked. I can drink coffee at home". Review of Systems Sleep Information Total Hours of Sleep: 9.25 Sleep Comments: Patient maintained on 15 minute checks. Meal Information Percent Meal Consumed - Breakfast: 100 Percent Meal Consumed - Lunch: 100 Percent Meal Consumed - Dinner: 100 Subjective Subjective Patient was seen & assessed and interval progress reviewed with treatment team. Diego is eating, drinking, toileting and showering appropriately. He does have difficulty keeping his pants up as scrubs are ill fitting but there are no sexually inappropriate behaviors. He clearly talks to himself and can be irritable as is focussed on being here voluntarily and doesn't understand why he can't leave immediately. Physical Exam Psychiatric Orientation: alert; + not oriented x 3 Eye Contact: + poor eye contact Speech: + abnormal rate/rhythm/volume of speech Affect: + blunted affect Mood: + irritable mood Thought Process: + concrete thought process Thought Content: + delusions Suicidal Thoughts: denies suicidal thoughts Homicidal Thoughts: denies homicidal thoughts Hallucinations: + auditory hallucinations (and talks to self); no visual hallucinations Cognition: language grossly intact Estimated Intelligence: consistent with education level Insight: + poor insight Judgement: + poor judgement Vital Signs (Past 24 Hours) Last Vital Signs Temp 36.3 C L 09/03/21 06:38 Pulse 110 H 09/03/21 06:38 Resp 18 09/03/21 06:38 BP 121/86 09/03/21 06:38 Pulse Ox 96 08/31/21 16:00 Results & Data ([facility]) Current Inpatient Medications Current Inpatient Medications: Current Inpatient Medications Acetaminophen (Acetaminophen 325 Mg Tab) 650 mg PO Q4H PRN PRN Reason: Headache or Minor Fever Stop: 09/30/21 17:41 Al Hydrox/Mg Hydrox/Simethicone (Aluminum/Magnesium Susp 30 Ml Udc) 30 ml PO Q4H PRN PRN Reason: GI Upset Stop: 09/30/21 17:41 Last Admin: 09/03/21 05:46 Dose: 30 ml Documented by: Benztropine Mesylate (Benztropine Mesylate 0.5 Mg Tab) 0.5 mg PO Q4 PRN PRN Reason: dystonia/thick tongue Stop: 09/30/21 17:44 Bismuth Subsalicylate (Bismuth Subsalicylate Liqd 236 Ml) 15 ml PO PRN PRN PRN Reason: Loose Stool Stop: 09/30/21 17:41 Clonidine HCl (Clonidine Hcl 0.1 Mg Tab) 0.1 mg PO Q8 PRN PRN Reason: Hypertension Stop: 09/30/21 18:37 Haloperidol (Haloperidol 5 Mg Tab) 5 mg PO Q4 PRN PRN Reason: anxiety/agitation Stop: 09/30/21 17:44 Last Admin: 09/01/21 17:09 Dose: 5 mg Documented by: Haloperidol (Haloperidol 5 Mg Tab) 5 mg PO BID NARAYAN Stop: 10/02/21 20:59 Last Admin: 09/03/21 08:53 Dose: 5 mg Documented by: Hydroxyzine HCl (Hydroxyzine Hcl 25 Mg Tab) 50 mg PO HSZ PRN PRN Reason: Insomnia Stop: 09/30/21 17:41 Last Admin: 09/01/21 21:19 Dose: 50 mg Documented by: Hydroxyzine HCl (Hydroxyzine Hcl 25 Mg Tab) 25 mg PO Q4H PRN PRN Reason: Anxiety Stop: 09/30/21 17:41 Lorazepam (Lorazepam 1 Mg Tab) 1 mg PO Q6 PRN PRN Reason: Anxiety/Agitation Stop: 09/30/21 17:44 Last Admin: 09/02/21 08:22 Dose: 1 mg Documented by: Magnesium Hydroxide (Magnesium Hydroxide Susp 30 Ml Udc) 30 ml PO DAILY PRN PRN Reason: Constipation Stop: 09/30/21 17:41 Menthol (Cough Drop (Sugar Free) Mark 24 Mark/1 Box) 1 mark BUCCAL Q2H PRN PRN Reason: Sore Throat Stop: 10/02/21 17:32 Nicotine Polacrilex (Nicotine Polacrilex 2 Mg Gum) 2 piece MT PRN PRN PRN Reason: Nicotine Withdrawal Stop: 09/30/21 17:41 Sodium Chloride (Sodium Chloride 0.65% Na Soln 45 Ml ([place])) 1 - 2 sprays NA PRN PRN PRN Reason: Nasal Dryness/Congestion Stop: 09/30/21 17:41 Temazepam (Temazepam 15 Mg Capsule) 15 mg PO HSZ PRN PRN Reason: Sleep Stop: 09/30/21 17:44 Last Admin: 09/02/21 20:59 Dose: 15 mg Documented by: Mental Health & Subst Abuse Tx Psychiatrist Name of Psychiatrist: Wellington Escobedo PA-C Psychiatrist's Date of Appointment with Psychiatrist: 09/29/21 Time of Appointment with Psychiatrist: 1:15 p.m. Psychiatric Appointment Comment: [address] [facility] Therapist Name of Therapist: . Machine Castings Plasterer Name of Machine Castings Plasterer: Antony Liao Phone Number for Machine Castings Plasterer: [phone] Case Management Appointment Comment: Follow up to obtain a timeline for when you can move back to your apt Post Discharge Appointments Primary Care Physician Name Of Family Doctor: Dr. Segundo Primary Care Provider Appointment Comment: [address], [place] [address] Contact Information Discharge Discharge Address: [facility] [address] [facility], [facility], [place], [place]
[2021-09-03] MEDS: TEMAZEPAM 15 MG CAPSULE PO PRN (21:03)
[2021-09-04] MEDS: ALUMINUM/MAGNESIUM SUSP 30 ML UDC PO PRN ×2 (03:56→08:28)
[2021-09-04 06:50] VITALS: BP 128/90; TEMP 97.3
[2021-09-04] MEDS: haloperidoL 5 MG TAB PO SCH (08:10)
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
[2021-09-04 10:10] VITALS: PULSE 88
== END 2021-09-04 12:00 | disposition home or self-care (01) | DRG 885 ==
LOC: ED 06:13 → SUATTDRO 17:43 → 3S 17:43

== ENCOUNTER 2022-10-22 20:18 | Inpatient (IN) ==
--- NOTE | 2022-10-22 20:25 | Emergency Department Note ---
Impression & Plan Hyponatremia, COPD (chronic obstructive pulmonary disease), Schizophrenia ED Provider Note NAME: ZAK EDMONDSON AGE: 72 SEX: M : 1950 ARRIVES VIA: Ambulance INFORMANT: Patient, ED PROVIDER(S): Sebastian Craig MD CHIEF COMPLAINT: Closed head injury, alcohol use, medication noncompliance, 302 MEDICAL DECISION MAKING: Patient presented due to concern for alcohol use medication noncompliance with a known history of schizophrenia 302 petition has been filed. Patient cannot be medically cleared immediately as the patient is clinically intoxicated and does admit to drinking. Patient did have blood work completed and IV was established patient was ordered IV fluids and IV Zofran. CT of the head and cervical spine do not show acute fracture or ICH. No dislocation. Patient's blood work showed mild leukocytosis normal H&H and platelet count. Kidney function was unremarkable but does have hyponatremia which is new compared to prior. TSH 3.8. Salicylate Tylenol negative. Alcohol 183. As the patient was unable to be medically cleared at this time the patient was admitted to the medicine service. I did speak the on-call hospitalist Dr. Gabriel and the patient was admitted. Prior /Outside records reviewed: I did review the patient's most recent psychiatric discharge summary from Dr. Serna completed in August 2021. Patient does have a history of schizophrenia patient does have a known history of noncompliance with treatment. Patient has followed with Mary Escobedo at [facility] in the past. Patient does have a case manager specialist Yariel. Differential diagnosis: ICH, fracture, mood disorder, infection, hypoglycemia, electrolyte abnormalities, cardiac sources, intracerebral event, toxicologic, trauma, neurologic, as well as other pathologies. Diagnostics, as interpreted by me: ECG: Normal sinus rhythm, rate of 65 normal intervals normal axis no ST elevations, nonspecific T wave abnormality in lateral leads. Cardiac monitoring: An order was placed for continuous cardiac monitoring. The monitor shows a rate of 95 with sinus rhythm. Patient was placed on pulse oximetry Medical decision rules: None Imaging studies: See below HPI: Patient presents via police as [place] and reportedly had a witnessed a fall where he did strike the b ack of his head. Patient does admit to drinking alcohol and does smoke cigars but denies any drug use. The patient reportedly has been noncompliant with his medications and has a known history of schizophrenia and was at [facility] but did leave to become homeless. When asked about this he states that he was trying to obtain the appropriate approval patient denies any SI HI or AVH. Patient does complain of some upset stomach and nausea. The patient did have vomiting prior to being seen here in the department. PAST MEDICAL HISTORY: See Below PAST SURGICAL HISTORY: See Below SOCIAL HISTORY: See Below HOME MEDICATIONS: See Below ALLERGIES: See Below VITALS: See Below PHYSICAL EXAMINATION: GENERAL: Clinically intoxicated. No apparent distress. Disheveled. EYE EXAM: Normal conjunctiva. PERRL, no anisocoria and EOM's grossly intact w/o pain. NECK: Supple, no nuchal rigidity, no adenopathy, non-tender. No signs of meningismus. FROM of the neck with good chin to chest and neck extension. No stridor. LUNGS: Clear to auscultation. Normal chest wall mechanics. HEART: NSR, no MRG. ABDOMEN: Abdomen soft, non-tender, normo-active bowel sounds, no masses, no rebound or guarding. BACK: No CVA TTP. SKIN: No rashes and no bruising. UPPER EXTREMITIES: Upper extremities are grossly normal. LOWER EXTREMITIES: Grossly normal, no edema. NEURO EXAM: A&O x3, cranial nerves II-XII grossly intact, normal speech, moves all 4 extremities. Past Med/Surg History Medical History Bronchitis Chronic obstructive pulmonary disease Dehydration Dementia BOSCH (dyspnea on exertion) History of leukemia Hypertension Nicotine addiction Non-compliant patient Nonadherence to medication NSVT (nonsustained ventricular tachycardia) IN SETTING OF INFLUENZA AUG 2017 - DECLINED TO SEE PROCESS DEVELOPMENT CHEMIST PER MEDICAL RECORD Schizophrenia Schizophrenia Smoker Surgical History History of tooth extraction Hx of right cataract extraction Family History Other Family history non-contributory Social History Smoking Status: Current every day smoker Tobacco Type: Cigarettes Cigarettes Per Day: 2ppd; Second Hand Exposure: No; Do You Dip or Chew Tobacco: No; Hx Alcohol Use: Yes Alcohol type: beer Hx Substance Use: No Preferred Language: Martiniquais Communication Ability: Impaired Cmo & President Required: No Beliefs That Will Affect Care: None Current Living Situation: Alone Current Living Situation Comment: was at [facility], signed self out Other Information That Helps Us Care for You: No Feels Safe at Home: Declines to Answer Safety Concerns: Feels Safe At This Time Assistive Devices: None Allergies Allergies Allergy/AdvReac Type Severity Reaction Status Date / Time lithium Allergy Unknown Verified 10/23/22 00:01 Home Meds Home Medications Medication Instructions Recorded Confirmed acetaminophen 500 mg tablet 1,000 mg PO Q6H PRN Pain 10/23/22 10/23/22 (Tylenol Extra Strength) amlodipine 10 mg tablet 10 mg PO DAILY 10/23/22 10/23/22 benztropine 0.5 mg tablet 0.5 mg PO DIRECTED 10/23/22 10/23/22 cholecalciferol (vitamin D3) 125 125 mcg PO DAILY 10/23/22 10/23/22 mcg (5,000 unit) tablet (Vitamin D3) diphenhydramine HCl 25 mg tablet 25 mg PO BID PRN Insomnia 10/23/22 10/23/22 (Benadryl Allergy) fluoxetine 10 mg capsule 10 mg PO DAILY 10/23/22 10/23/22 fluoxetine 20 mg capsule 20 mg PO DAILY 10/23/22 10/23/22 haloperidol 5 mg tablet 5 mg PO BID 10/23/22 10/23/22 haloperidol decanoate 100 mg/mL 100 mg IM .[id number] 10/23/22 10/23/22 intramuscular solution hydroxyzine HCl 10 mg tablet 10 mg PO TID agitation 10/23/22 10/23/22 propranolol 20 mg tablet 20 mg PO BID 10/23/22 10/23/22 Results & Data (ED) Vital Signs Vital Signs - 24 hr 10/22/22 20:25 10/22/22 21:31 10/22/22 22:00 Temperature 36.7 C Temperature Source Oral Pulse Rate 99 H 75 72 Respiratory Rate 22 22 20 Respiratory Effort / Characteristics Non-Labored Spontaneous Respiratory Depth Normal Blood Pressure 235/151 H 191/108 H 169/103 H Blood Pressure Mean 179 135 125 Pulse Oximetry 93 97 96 Oxygen Delivery Method Room Air Sepsis Recent Fever Within 48 Hours No Sepsis New/Unexplained Change in Mental Status N/A Sepsis Action Taken by Nursing No Action Required 10/22/22 21:10 10/22/22 22:34 10/22/22 23:01 Temperature Temperature Source Pulse Rate 72 72 67 Respiratory Rate 20 20 Respiratory Effort / Characteristics Respiratory Depth Blood Pressure 211/107 H 145/91 H Blood Pressure Mean 141 109 Pulse Oximetry 95 96 Oxygen Delivery Method Sepsis Recent Fever Within 48 Hours Sepsis New/Unexplained Change in Mental Status Sepsis Action Taken by Group Home Medications Current Medication List: was personally reviewed by me Laboratory Data Attestation: I reviewed the patient's lab results. 10/23/22 05:13 10/23/22 05:13 Lab Results 10/22/22 10/22/22 10/22/22 Range/Units 20:42 20:42 20:42 WBC 13.26 H (4.8-10.8) K/ul RBC 5.27 (4.70-6.10) M/uL Hgb 15.7 (14.0-18.0) g/dl Hct 44.4 (42.0-52.0) % MCV 84.3 (80.0-100.0) fL MCH 29.8 (25.0-34.0) pg MCHC 35.4 (32.0-36.0) g/dL RDW Std Deviation 42.6 (36.4-46.3) fL RDW Coeff of Demond 13.7 (11.5-14.5) % Plt Count 298 (130-400) K/uL MPV 9.6 (9.4-12.4) fL Immature Gran % (Auto) 0.6 % Neut % (Auto) 82.2 % Lymph % (Auto) 9.2 % [place] % (Auto) 6.7 % Eos % (Auto) 0.5 % Baso % (Auto) 0.8 % Neut # (Auto) 10.91 H (1.40-6.50) K/uL Lymph # (Auto) 1.22 (1.2-3.4) K/uL [place] # (Auto) 0.89 H (0.11-0.59) K/uL Eos # (Auto) 0.06 (0-0.50) K/uL Baso # (Auto) 0.10 (0-0.2) K/uL Immature Gran # (Auto) 0.08 (0.01-0.20) K/uL Sodium 124 L (136-145) mmol/L Potassium 3.9 (3.5-5.1) mmol/L Chloride 92 L (98-107) mmol/L Carbon Dioxide 22 (21-32) mmol/L Anion Gap 10 (3-11) BUN 16 (6-23) mg/dl Creatinine 1.02 (0.6-1.4) mg/dl Est Cr Clr Drug Dosing 66.4 ml/min Est GFR ( Amer) 85.3 ml/min Est GFR (Non-Af Amer) 73.6 ml/min BUN/Creatinine Ratio 15.7 (10-20) Glucose 89 (70-99(Fasting)) mg/dl Osmolality (280-300) mOsm/kg Calcium 8.7 (8.5-10.1) mg/dl Magnesium 1.7 (1.7-2.4) mg/dl Total Bilirubin 0.6 (0.2-1.0) mg/dl AST 21 (13-39) U/L ALT 10 (7-52) U/L Alkaline Phosphatase 38 (34-104) U/L Total Protein 7.2 (6.0-8.3) gm/dl Albumin 4.9 (3.4-5.0) gm/dl Globulin 2.3 L (2.5-4.0) gm/dl Albumin/Globulin Ratio 2.1 H (0.9-2) Lipase 36 (11-82) U/L TSH 3.858 (0.300-4.500) uIu/ml Urine Color Urine Appearance (Clear) Urine pH (4.5-7.5) Ur Specific [place] (1.000-1.030) Urine Protein (Negative) Urine Glucose (UA) (Negative) Urine Ketones (Negative) Urine Blood (Negative) Urine Nitrite (Negative) Urine Bilirubin (Negative) Urine Urobilinogen (Negative) Ur Leukocyte Esterase (Negative) Urine WBC (Auto) (0-5) /hpf Urine RBC (Auto) (0-4) /hpf U Hyaline Cast (Auto) (0-5) /lpf U Epithel Cells (Auto) (0-5) /lpf Urine Bacteria (Auto) (Negative) Salicylates (3.0-30) mg/dl Urine Opiates Screen (Neg) Ur Methadone, Qual (Neg) Acetaminophen (10-30) ug/ml Urine Barbiturates (Neg) Ur Phencyclidine (PCP) (Neg) U Amphetamin/Meth Scrn (Neg) MDMA (Ecstasy) Screen (Neg) U Benzodiazepines Scrn (Neg) Ur Cocaine Metabolite (Neg) U Marijuana (THC) Screen (Neg) Ethyl Alcohol mg/dL (<10.0) mg/dl SARS-CoV-2, RNA, NAAT (NEGATIVE) 10/22/22 10/22/22 10/22/22 Range/Units 20:42 20:42 20:42 WBC (4.8-10.8) K/ul RBC (4.70-6.10) M/uL Hgb (14.0-18.0) g/dl Hct (42.0-52.0) % MCV (80.0-100.0) fL MCH (25.0-34.0) pg MCHC (32.0-36.0) g/dL RDW Std Deviation (36.4-46.3) fL RDW Coeff of Demond (11.5-14.5) % Plt Count (130-400) K/uL MPV (9.4-12.4) fL Immature Gran % (Auto) % Neut % (Auto) % Lymph % (Auto) % [place] % (Auto) % Eos % (Auto) % Baso % (Auto) % Neut # (Auto) (1.40-6.50) K/uL Lymph # (Auto) (1.2-3.4) K/uL [place] # (Auto) (0.11-0.59) K/uL Eos # (Auto) (0-0.50) K/uL Baso # (Auto) (0-0.2) K/uL Immature Gran # (Auto) (0.01-0.20) K/uL Sodium (136-145) mmol/L Potassium (3.5-5.1) mmol/L Chloride (98-107) mmol/L Carbon Dioxide (21-32) mmol/L Anion Gap (3-11) BUN (6-23) mg/dl Creatinine (0.6-1.4) mg/dl Est Cr Clr Drug Dosing ml/min Est GFR ( Amer) ml/min Est GFR (Non-Af Amer) ml/min BUN/Creatinine Ratio (10-20) Glucose (70-99(Fasting)) mg/dl Osmolality 305 H (280-300) mOsm/kg Calcium (8.5-10.1) mg/dl Magnesium (1.7-2.4) mg/dl Total Bilirubin (0.2-1.0) mg/dl AST (13-39) U/L ALT (7-52) U/L Alkaline Phosphatase (34-104) U/L Total Protein (6.0-8.3) gm/dl Albumin (3.4-5.0) gm/dl Globulin (2.5-4.0) gm/dl Albumin/Globulin Ratio (0.9-2) Lipase (11-82) U/L TSH (0.300-4.500) uIu/ml Urine Color Urine Appearance (Clear) Urine pH (4.5-7.5) Ur Specific [place] (1.000-1.030) Urine Protein (Negative) Urine Glucose (UA) (Negative) Urine Ketones (Negative) Urine Blood (Negative) Urine Nitrite (Negative) Urine Bilirubin (Negative) Urine Urobilinogen (Negative) Ur Leukocyte Esterase (Negative) Urine WBC (Auto) (0-5) /hpf Urine RBC (Auto) (0-4) /hpf U Hyaline Cast (Auto) (0-5) /lpf U Epithel Cells (Auto) (0-5) /lpf Urine Bacteria (Auto) (Negative) Salicylates < 3.0 L (3.0-30) mg/dl Urine Opiates Screen (Neg) Ur Methadone, Qual (Neg) Acetaminophen < 3 L (10-30) ug/ml Urine Barbiturates (Neg) Ur Phencyclidine (PCP) (Neg) U Amphetamin/Meth Scrn (Neg) MDMA (Ecstasy) Screen (Neg) U Benzodiazepines Scrn (Neg) Ur Cocaine Metabolite (Neg) U Marijuana (THC) Screen (Neg) Ethyl Alcohol mg/dL 183.5 H (<10.0) mg/dl SARS-CoV-2, RNA, NAAT (NEGATIVE) 10/22/22 10/22/22 10/22/22 Range/Units 20:48 21:20 21:20 WBC (4.8-10.8) K/ul RBC (4.70-6.10) M/uL Hgb (14.0-18.0) g/dl Hct (42.0-52.0) % MCV (80.0-100.0) fL MCH (25.0-34.0) pg MCHC (32.0-36.0) g/dL RDW Std Deviation (36.4-46.3) fL RDW Coeff of Demond (11.5-14.5) % Plt Count (130-400) K/uL MPV (9.4-12.4) fL Immature Gran % (Auto) % Neut % (Auto) % Lymph % (Auto) % [place] % (Auto) % Eos % (Auto) % Baso % (Auto) % Neut # (Auto) (1.40-6.50) K/uL Lymph # (Auto) (1.2-3.4) K/uL [place] # (Auto) (0.11-0.59) K/uL Eos # (Auto) (0-0.50) K/uL Baso # (Auto) (0-0.2) K/uL Immature Gran # (Auto) (0.01-0.20) K/uL Sodium (136-145) mmol/L Potassium (3.5-5.1) mmol/L Chloride (98-107) mmol/L Carbon Dioxide (21-32) mmol/L Anion Gap (3-11) BUN (6-23) mg/dl Creatinine (0.6-1.4) mg/dl Est Cr Clr Drug Dosing ml/min Est GFR ( Amer) ml/min Est GFR (Non-Af Amer) ml/min BUN/Creatinine Ratio (10-20) Glucose (70-99(Fasting)) mg/dl Osmolality (280-300) mOsm/kg Calcium (8.5-10.1) mg/dl Magnesium (1.7-2.4) mg/dl Total Bilirubin (0.2-1.0) mg/dl AST (13-39) U/L ALT (7-52) U/L Alkaline Phosphatase (34-104) U/L Total Protein (6.0-8.3) gm/dl Albumin (3.4-5.0) gm/dl Globulin (2.5-4.0) gm/dl Albumin/Globulin Ratio (0.9-2) Lipase (11-82) U/L TSH (0.300-4.500) uIu/ml Urine Color Yellow Urine Appearance Clear (Clear) Urine pH 6.5 (4.5-7.5) Ur Specific [place] 1.008 (1.000-1.030) Urine Protein Negative (Negative) Urine Glucose (UA) Negative (Negative) Urine Ketones Negative (Negative) Urine Blood 1+ H (Negative) Urine Nitrite Negative (Negative) Urine Bilirubin Negative (Negative) Urine Urobilinogen Negative (Negative) Ur Leukocyte Esterase Negative (Negative) Urine WBC (Auto) 1-5 (0-5) /hpf Urine RBC (Auto) 0-4 (0-4) /hpf U Hyaline Cast (Auto) 0 (0-5) /lpf U Epithel Cells (Auto) 0-5 (0-5) /lpf Urine Bacteria (Auto) Negative (Negative) Salicylates (3.0-30) mg/dl Urine Opiates Screen Neg (Neg) Ur Methadone, Qual Neg (Neg) Acetaminophen (10-30) ug/ml Urine Barbiturates Neg (Neg) Ur Phencyclidine (PCP) Neg (Neg) U Amphetamin/Meth Scrn Neg (Neg) MDMA (Ecstasy) Screen Neg (Neg) U Benzodiazepines Scrn Neg (Neg) Ur Cocaine Metabolite Neg (Neg) U Marijuana (THC) Screen Neg (Neg) Ethyl Alcohol mg/dL (<10.0) mg/dl SARS-CoV-2, RNA, NAAT NEGATIVE (NEGATIVE) Administered Medications Calcium Carbonate (Calcium Carbonate 500 Mg Chewable Tab) 500 mg PO Q6H PRN PRN Reason: Heartburn Stop: 11/22/22 01:10 Last Admin: 10/23/22 01:27 Dose: 500 mg Documented By: BRANDON Enoxaparin Sodium (Enoxaparin Inj 40 Mg/0.4 Ml Syr) 40 mg SQ QAM NARAYAN Stop: 11/22/22 08:59 Last Admin: 10/23/22 09:43 Dose: Not Given Documented By: ZORAN Promethazine HCl 6.25 mg/ (Sodium Chloride) 50.25 mls @ 201 mls/hr IV Q6H PRN PRN Reason: Nausea And Vomiting Stop: 11/22/22 01:04 Last Infusion: 10/23/22 01:38 Dose: 0 mls/hr Documented By: Admin: 10/23/22 01:23 Dose: 201 mls/hr Documented By: BRANDON Propranolol HCl (Propranolol Hcl 20 Mg Tab) 20 mg PO BID NARAYAN Stop: 11/22/22 08:59 Last Admin: 10/23/22 10:16 Dose: Not Given Documented By: ZORAN Discontinued Medications Clonidine HCl (Clonidine Hcl 0.1 Mg Tab) 0.1 mg PO NOW ONE Stop: 10/22/22 22:33 Last Admin: 10/22/22 22:46 Dose: 0.1 mg Documented By: VISHAL Sodium Chloride (Nss 1000ml) 1,000 mls @ 999 mls/hr IV .[id number] NARAYAN Stop: 10/22/22 21:45 Last Infusion: 10/22/22 21:51 Dose: 0 mls/hr Documented By: Admin: 10/22/22 20:47 Dose: 999 mls/hr Documented By: VISHAL Thiamine HCl 100 mg/ Syringe 10 mls @ 2 mls/min IV NOW ONE Stop: 10/22/22 22:49 Last Admin: 10/22/22 23:22 Dose: 2 mls/min Documented By: REY Famotidine 20 mg/ Syringe 5 mls @ 2.5 mls/min IV NOW ONE Stop: 10/23/22 04:16 Last Admin: 10/23/22 04:16 Dose: 2.5 mls/min Documented By: BRANDON Sodium Chloride (Nss 1000ml) 1,000 mls @ 60 mls/hr IV .[id number] ONE Stop: 10/23/22 22:36 Last Infusion: 10/23/22 09:40 Dose: 0 mls/hr Documented By: Admin: 10/23/22 06:17 Dose: 60 mls/hr Documented By: BRANDON Ioversol (Optiray 350 100ml) 90 ml IV ONCE ONE Stop: 10/23/22 15:50 Last Admin: 10/23/22 15:50 Dose: 90 ml Documented By: SALEEM Ondansetron HCl (Ondansetron Inj 2 Mg/Ml 2 Ml Vial) 4 mg IV NOW STA Stop: 10/22/22 20:39 Last Admin: 10/22/22 20:46 Dose: 4 mg Documented By: VISHAL Oxycodone HCl (Oxycodone Hcl Ir 5 Mg Tab (Immediate Release)) 5 mg PO NOW STA Stop: 10/23/22 04:30 Last Admin: 10/23/22 04:55 Dose: 5 mg Documented By: CR Imaging Data Radiologist's Impression: Head CT 10/22/22 20:[address] DOSE: HISTORY: fall, ?CHI, ETOH TECHNIQUE: Multiaxial CT images of the head were performed without the use of intravenous contrast. Automated exposure control was utilized for this study. A dose lowering technique was utilized adhering to the principles of ALARA. Comparison: Head CT 08/31/2021. Findings: The paranasal sinuses and mastoid air cells are clear. The calvarium and skull base are intact. The ventricles and sulci are within normal limits. There is no mass, hematoma, midline shift, or acute infarct. Mild left posterior scalp swelling. 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 Impression: 1. No acute infarct or intracranial hemorrhage. 2. Left posterior scalp swelling. ACT 112: Negative or not required by law. Electronically signed by: Sean Adame M.D. 10/23/2022 7:[address] 10/22/22 20:[address] DOSE: 1355.52 mGy.cm HISTORY: fall TECHNIQUE: Multiaxial CT images of the cervical spine were performed and reformatted in the sagittal and coronal plane without the use of contrast. A dose lowering technique was utilized adhering to the principles of ALARA. COMPARISON: None. FINDINGS: No fractures. No subluxation. Prevertebral soft tissues and the C1-C2 interval are intact. No pneumothorax. [id number] degenerative changes within the cervical spine most pronounced at the C6-C7 level. Emphysema. IMPRESSION: No fractures within the cervical spine. ACT 112: Negative or not required by law. Electronically signed by: Sean Adame M.D. 10/23/2022 9:13 AM Chest X-Ray 10/22/22 22:41 XR chest 1V portable CLINICAL HISTORY: hyponatremia COMPARISON STUDY: Chest CT September 15, 2017. Chest radiograph August 31, 2021. FINDINGS: Emphysema is present. There is mild blunting of the left costophrenic angle. No definite pleural effusion is present. There is no pneumothorax. Pulmonary vascularity is within normal limits. IMPRESSION: 1. Slight blunting of the left costophrenic angle. This could be due to atelectasis or a trace left pleural effusion. Mild airspace opacity could appear similar. Radiographic follow up is recommended. 2. Emphysema. ACT 112: Negative or not required by law. Electronically signed by: Haja Bundy M.D. 10/23/2022 8:44 AM Discharge Plan Visit Data Chief Complaint: Mental Health Evaluation Stated Complaint: ALCOHOL/302/FALL ED Provider: Sebastian Craig Discharge Problem: Hyponatremia, COPD (chronic obstructive pulmonary disease), Schizophrenia Patient Disposition: Admitted As Inpatient Discharge Instructions Interventions: ED Discharge Assessment Last Done: 10/23/22 00:38
[2022-10-22] MEDS ORDERED: ONDANSETRON INJ 2 MG/ML 2 ML VIAL IV STA (20:38)
[2022-10-22] MEDS ORDERED: SODIUM CHLORIDE 0.9% 1000ML 1,000 ML IV SCH (20:45)
[2022-10-22 21:19] LABS: Albumin Globulin Ratio 2.1 (0.9-2); Albumin Level 4.9 gm/dl (3.4-5.0); BUN Creatinine Ratio 15.7 (10-20); Bilirubin,Total 0.6 mg/dl (0.2-1.0); Calcium 8.7 mg/dl (8.5-10.1); Creatinine Clr Calc Pharmacy 66.4 ml/min; Est GFR (African American) 85.3 ml/min; Est GFR (Non-African American) 73.6 ml/min; Globulin 2.3 gm/dl (2.5-4.0); Potassium 3.9 mmol/L (3.5-5.1); Total Protein 7.2 gm/dl (6.0-8.3)
[2022-10-22 21:25] LABS: Acetaminophen < 3 ug/ml (10-30); Salicylate < 3.0 mg/dl (3.0-30)
[2022-10-22 21:54] LABS: Basophils % (auto) 0.8 %; Eosinophils # (auto) 0.06 K/uL (0-0.50); Eosinophils % (auto) 0.5 %; Hematocrit (blood only) 44.4 % (42.0-52.0); Hemoglobin 15.7 g/dl (14.0-18.0); Immature Granulocytes # (auto) 0.08 K/uL (0.01-0.20); Immature Granulocytes % (auto) 0.6 %; Lymphocytes # (auto) 1.22 K/uL (1.2-3.4); Lymphocytes % (auto) 9.2 %; Mean Corpuscular Hemoglobin 29.8 pg (25.0-34.0); Mean Corpuscular Hgb Conc 35.4 g/dL (32.0-36.0); Mean Corpuscular Volume 84.3 fL (80.0-100.0); Mean Platelet Volume 9.6 fL (9.4-12.4); Monocytes # (auto) 0.89 K/uL (0.11-0.59); Monocytes % (auto) 6.7 %; Neutrophils # (auto) 10.91 K/uL (1.40-6.50); Neutrophils % (auto) 82.2 %; Platelet Count 298 K/uL (130-400); RDW Coefficient of Variation 13.7 % (11.5-14.5); RDW Standard Deviation 42.6 fL (36.4-46.3); Red Blood Count 5.27 M/uL (4.70-6.10); White Blood Count 13.26 K/ul (4.8-10.8)
[2022-10-22 22:04] LABS: Appearance Urine Clear (Clear); Bacteria Urine Automated Negative (Negative); Bilirubin Urine Negative (Negative); Blood Urine 1+ (Negative); Cast Urine Automated 0 /lpf (0-5); Color Urine Yellow; Epithelial Cell Urine Auto 0-5 /lpf (0-5); Glucose Urine UA Negative (Negative); Ketones Urine Negative (Negative); Leukocyte Esterase Urine Negative (Negative); Nitrite Urine Negative (Negative); Protein Urine Negative (Negative); RBC Urine Automated 0-4 /hpf (0-4); Specific Gravity Urine 1.008 (1.000-1.030); Urobilinogen Urine Negative (Negative); pH Urine 6.5 (4.5-7.5)
[2022-10-22] MEDS ORDERED: cloNIDine HCL 0.1 MG TAB PO ONE (22:32)
[2022-10-22] MEDS ORDERED: THIAMINE HCL 100 MG in SYRINGE 9 ML IV ONE (22:45)
--- NOTE | 2022-10-22 22:51 | History & Physical Report ---
Date of Service October 22, 2022 Assessment & Plan (1) Hyponatremia: Plan: Likely from decreased p.o. intake Schizophrenia/mood disorder, medication noncompliance Fall possible syncopal event Rule out orthostasis, cardiac dysfunction hypertension, elevated secondary to home blood pressure medication noncompliance hx NSVT COPD, pulmonary status at baseline prediabetes, hemoglobin A1c of 5.8 from 2021 ongoing tobacco abuse Medical telemetry Careful correction of sodium Recheck serum sodium after fluid bolus administered at the ER. Hyponatremia work-up Orthostatic vitals, baseline EKG, TTE for possible syncope work-up Patient agreeable to resuming home BP meds starting with home beta-darvin. Patient adamantly refuses to take his usual psychiatric meds for now. Psych consult re: schizophrenia Nicotine patch as needed DVT prophylaxis. Lovenox subcu Full code Text document was generated using MyClean recognition software. It may contain grammatical or spelling errors. Kindly contact undersigned for clarification of any documentation item in question. History of Present Illness Chief Complaint: Fall Primary Care Provider: Trip Segundo MD History obtained from patient and records. Medical history significant for hypertension, NSVT, COPD, prediabetes, childhood leukemia status post treatment, schizophrenia, mood disorder, ongoing tobacco abuse. Recent confinement last month under Psychiatry service for psychosis. Patient discharged back to [facility] residence where patient had been staying since last year. 2 weeks ago, patient noted to be restless, delusional, and disruptive at [facility]. Patient hearing voices again. Patient refused to take home BP and psych medications. This afternoon he left [facility] for good on a taxi to go downtown. Patient does not want to return to [facility] due to feeling 'constricted'. Patient denies suicidality. Patient fell outside [facility] parking garage this afternoon. Had trouble walking after he got drunk as per patient. No prior history of alcohol abuse as per records. Patient not sure if he passed out. Denies headache, chest pain, SOB. No seizures, tongue biting, incontinence symptoms. Admits to some heartburn symptoms. Patient brought to the ER for evaluation. Medical History as above Surgical History : Dental surgery Family History : Hypertension Personal/Social history : 2 packs daily, occasional EtOH intake, disabled Allergies Allergy/AdvReac Type Severity Reaction Status Date / Time lithium Allergy Unknown Verified 10/23/22 00:01 Home Medications Medication Instructions Recorded Confirmed Type acetaminophen 500 mg tablet 1,000 mg PO Q6H PRN Pain 10/23/22 10/23/22 History (Tylenol Extra Strength) amlodipine 10 mg tablet 10 mg PO DAILY 10/23/22 10/23/22 History benztropine 0.5 mg tablet 0.5 mg PO DIRECTED 10/23/22 10/23/22 History cholecalciferol (vitamin D3) 125 125 mcg PO DAILY 10/23/22 10/23/22 History mcg (5,000 unit) tablet (Vitamin D3) diphenhydramine HCl 25 mg tablet 25 mg PO BID PRN Itching 10/23/22 10/23/22 History (Benadryl Allergy) fluoxetine 10 mg capsule 10 mg PO DAILY 10/23/22 10/23/22 History fluoxetine 20 mg capsule 20 mg PO DAILY 10/23/22 10/23/22 History haloperidol 5 mg tablet 5 mg PO DIRECTED 10/23/22 10/23/22 History haloperidol decanoate 100 mg/mL 0 mg IM .[id number] 10/23/22 10/23/22 History intramuscular solution hydroxyzine HCl 10 mg tablet 10 mg PO DIRECTED 10/23/22 10/23/22 History propranolol 20 mg tablet 20 mg PO BID 10/23/22 10/23/22 History Past Med/Surg History Medical History Bronchitis Chronic obstructive pulmonary disease Dehydration Dementia BOSCH (dyspnea on exertion) History of leukemia Hypertension Nicotine addiction Non-compliant patient Nonadherence to medication NSVT (nonsustained ventricular tachycardia) IN SETTING OF INFLUENZA AUG 2017 - DECLINED TO SEE RECORDS CUSTODIAN PER MEDICAL RECORD Schizophrenia Schizophrenia Smoker Surgical History History of tooth extraction Hx of right cataract extraction Family History Other Family history non-contributory Social History Smoking Status: Current every day smoker Tobacco Type: Cigarettes Cigarettes Per Day: 2ppd; Second Hand Exposure: No; Do You Dip or Chew Tobacco: No; Hx Alcohol Use: Yes Alcohol type: beer Hx Substance Use: No Preferred Language: Occitan Communication Ability: Effective 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 Beliefs That Will Affect Care: None Current Living Situation: Alone Current Living Situation Comment: was at [facility], signed self out Other Information That Helps Us Care for You: No Feels Safe at Home: Declines to Answer Safety Concerns: Feels Safe At This Time Assistive Devices: None Review of Systems Review of Systems: As per HPI, all other systems reviewed and negative Physical Exam Physical Exam: GENERAL: Comfortable, no respiratory distress SKIN: Normal color, warm HEENT: Partial alopecia, [place]wood palpebral conjunctivae, no ptosis, dry buccal mucosa NECK : Supple, no tenderness CHEST : CTA, no tenderness HEART : RRR, no obvious murmurs ABDOMEN: Some distention, nontender EXTREMITIES : No LE swelling/tenderness, no other conspicuous deformities noted NEUROLOGIC : Coherent, no facial asymmetry, gait and stance not assessed Results & Data Results & Data ([facility]) Vital Signs (Past 12 Hours) Vital Signs Temp Pulse Resp BP Pulse Ox O2 Del Method 10/22/22 22:00 72 20 169/103 H 96 10/22/22 21:31 75 22 191/108 H 97 10/22/22 20:25 36.7 C 99 H 22 235/151 H 93 Room Air Laboratory Results Laboratory Results WBC 13.26 K/ul (4.8-10.8) H 10/22/22 20:42 RBC 5.27 M/uL (4.70-6.10) 10/22/22 20:42 Hgb 15.7 g/dl (14.0-18.0) 10/22/22 20:42 Hct 44.4 % (42.0-52.0) 10/22/22 20:42 MCV 84.3 fL (80.0-100.0) 10/22/22 20:42 MCH 29.8 pg (25.0-34.0) 10/22/22 20:42 MCHC 35.4 g/dL (32.0-36.0) 10/22/22 20:42 RDW Std Deviation 42.6 fL (36.4-46.3) 10/22/22 20:42 RDW Coeff of Demond 13.7 % (11.5-14.5) 10/22/22 20:42 Plt Count 298 K/uL (130-400) 10/22/22 20:42 MPV 9.6 fL (9.4-12.4) 10/22/22 20:42 Immature Gran % (Auto) 0.6 % 10/22/22 20:42 Neut % (Auto) 82.2 % 10/22/22 20:42 Lymph % (Auto) 9.2 % 10/22/22 20:42 Meade % (Auto) 6.7 % 10/22/22 20:42 Eos % (Auto) 0.5 % 10/22/22 20:42 Baso % (Auto) 0.8 % 10/22/22 20:42 Neut # (Auto) 10.91 K/uL (1.40-6.50) H 10/22/22 20:42 Lymph # (Auto) 1.22 K/uL (1.2-3.4) 10/22/22 20:42 Meade # (Auto) 0.89 K/uL (0.11-0.59) H 10/22/22 20:42 Eos # (Auto) 0.06 K/uL (0-0.50) 10/22/22 20:42 Baso # (Auto) 0.10 K/uL (0-0.2) 10/22/22 20:42 Immature Gran # (Auto) 0.08 K/uL (0.01-0.20) 10/22/22 20:42 Sodium 124 mmol/L (136-145) L 10/22/22 20:42 Potassium 3.9 mmol/L (3.5-5.1) 10/22/22 20:42 Chloride 92 mmol/L (98-107) L 10/22/22 20:42 Carbon Dioxide 22 mmol/L (21-32) 10/22/22 20:42 Anion Gap 10 (3-11) 10/22/22 20:42 BUN 16 mg/dl (6-23) 10/22/22 20:42 Creatinine 1.02 mg/dl (0.6-1.4) 10/22/22 20:42 Est Cr Clr Drug Dosing 66.4 ml/min 10/22/22 20:42 Est GFR ( Amer) 85.3 ml/min 10/22/22 20:42 Est GFR (Non-Af Amer) 73.6 ml/min 10/22/22 20:42 BUN/Creatinine Ratio 15.7 (10-20) 10/22/22 20:42 Glucose 89 mg/dl (70-99(Fasting)) 10/22/22 20:42 Calcium 8.7 mg/dl (8.5-10.1) 10/22/22 20:42 Total Bilirubin 0.6 mg/dl (0.2-1.0) 10/22/22 20:42 AST 21 U/L (13-39) 10/22/22 20:42 ALT 10 U/L (7-52) 10/22/22 20:42 Alkaline Phosphatase 38 U/L (34-104) 10/22/22 20:42 Total Protein 7.2 gm/dl (6.0-8.3) 10/22/22 20:42 Albumin 4.9 gm/dl (3.4-5.0) 10/22/22 20:42 Globulin 2.3 gm/dl (2.5-4.0) L 10/22/22 20:42 Albumin/Globulin Ratio 2.1 (0.9-2) H 10/22/22 20:42 TSH 3.858 uIu/ml (0.300-4.500) 10/22/22 20:42 Urine Color Yellow 10/22/22 21:20 Urine Appearance Clear (Clear) 10/22/22 21:20 Urine pH 6.5 (4.5-7.5) 10/22/22 21:20 Ur Specific Beverly 1.008 (1.000-1.030) 10/22/22 21:20 Urine Protein Negative (Negative) 10/22/22 21:20 Urine Glucose (UA) Negative (Negative) 10/22/22 21:20 Urine Ketones Negative (Negative) 10/22/22 21:20 Urine Blood 1+ (Negative) H 10/22/22 21:20 Urine Nitrite Negative (Negative) 10/22/22 21:20 Urine Bilirubin Negative (Negative) 10/22/22 21:20 Urine Urobilinogen Negative (Negative) 10/22/22 21:20 Ur Leukocyte Esterase Negative (Negative) 10/22/22 21:20 Urine WBC (Auto) 1-5 /hpf (0-5) 10/22/22 21:20 Urine RBC (Auto) 0-4 /hpf (0-4) 10/22/22 21:20 U Hyaline Cast (Auto) 0 /lpf (0-5) 10/22/22 21:20 U Epithel Cells (Auto) 0-5 /lpf (0-5) 10/22/22 21:20 Urine Bacteria (Auto) Negative (Negative) 10/22/22 21:20 Salicylates < 3.0 mg/dl (3.0-30) L 10/22/22 20:42 Acetaminophen < 3 ug/ml (10-30) L 10/22/22 20:42 Ethyl Alcohol mg/dL 183.5 mg/dl (<10.0) H 10/22/22 20:42 SARS-CoV-2, RNA, NAAT NEGATIVE (NEGATIVE) 10/22/22 20:[address] head initial read: No acute intracranial hemorrhage. No midline shift or mass effect. The territorial brewer-white matter differentiation is maintained throughout. Age-related cerebral volume loss. Periventricular and subcortical white matter hypoattenuation, consistent with chronic microangiopathy. CT cervical spine initial read: No acute fracture or subluxation of the cervical spine. Chest x-ray as per my interpretation cardiomegaly, chronic interstitial thickening
[2022-10-22 23:05] LABS: Amphetamines+Metham, Urine Neg (Neg); Barbiturates, Urine Neg (Neg); Benzodiazepine, Urine Neg (Neg); Cocaine, Urine Neg (Neg); MDMA (Ecstacy), Urine Neg (Neg); Methadone, Urine Neg (Neg); Opiate, Urine Neg (Neg); Phencyclidine, Urine Neg (Neg)
[2022-10-22 23:20] LABS: Magnesium 1.7 mg/dl (1.7-2.4)
[2022-10-23] MEDS ORDERED: PROMETHAZINE HCL 6.25 MG in SODIUM CHLORIDE 0.9% 50 ML IV PRN (01:05)
[2022-10-23] MEDS ORDERED: oxyCODONE HCL IR 5 MG TAB (IMMEDIATE RELEASE) PO PRN (01:05)
[2022-10-23] MEDS ORDERED: ACETAMINOPHEN 325 MG TAB PO PRN (01:05)
[2022-10-23] MEDS ORDERED: CALCIUM CARBONATE 500 MG CHEWABLE TAB PO PRN (01:11)
[2022-10-23] MEDS ORDERED: FAMOTIDINE 20 MG in SYRINGE 3 ML IV ONE (04:15)
[2022-10-23] MEDS ORDERED: oxyCODONE HCL IR 5 MG TAB (IMMEDIATE RELEASE) PO STA (04:29)
[2022-10-23 05:40] LABS: Basophils # (auto) 0.04 K/uL (0-0.2); Basophils % (auto) 0.3 %; Eosinophils # (auto) 0.04 K/uL (0-0.50); Eosinophils % (auto) 0.3 %; Hematocrit (blood only) 43.2 % (42.0-52.0); Hemoglobin 15.2 g/dl (14.0-18.0); Immature Granulocytes # (auto) 0.06 K/uL (0.01-0.20); Immature Granulocytes % (auto) 0.5 %; Lymphocytes # (auto) 0.94 K/uL (1.2-3.4); Mean Corpuscular Hemoglobin 29.6 pg (25.0-34.0); Mean Corpuscular Hgb Conc 35.2 g/dL (32.0-36.0); Mean Platelet Volume 9.5 fL (9.4-12.4); Monocytes # (auto) 0.62 K/uL (0.11-0.59); Monocytes % (auto) 5.3 %; Neutrophils # (auto) 9.99 K/uL (1.40-6.50); Neutrophils % (auto) 85.6 %; Platelet Count 292 K/uL (130-400); RDW Coefficient of Variation 13.4 % (11.5-14.5); Red Blood Count 5.14 M/uL (4.70-6.10); White Blood Count 11.69 K/ul (4.8-10.8)
[2022-10-23 05:55] LABS: Calcium 8.5 mg/dl (8.5-10.1); Potassium 4.1 mmol/L (3.5-5.1)
[2022-10-23] MEDS ORDERED: SODIUM CHLORIDE 0.9% 1000ML 1,000 ML IV ONE (05:57)
[2022-10-23 06:00] LABS: BUN Creatinine Ratio 14.1 (10-20); Creatinine Clr Calc Pharmacy 68.4 ml/min; Est GFR (African American) 88.4 ml/min; Est GFR (Non-African American) 76.3 ml/min
--- NOTE | 2022-10-23 07:50 | CT Scan Report ---
HEAD CT NONCONTRAST CT DOSE: HISTORY: fall, ?CHI, ETOH TECHNIQUE: Multiaxial CT images of the head were performed without the use of intravenous contrast. A utomated exposure control was utilized for this study. A dose lowering technique was utilized adheri ng to the principles of ALARA. Comparison: Head CT 08/31/2021. Findings: The paranasal sinuses and mastoid air cells are clear. The calvarium and skull base are int act. The ventricles and sulci are within normal limits. There is no mass, hematoma, midline shift, or acute infarct. Mild left posterior scalp swelling. 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 Impression: 1. No acute infarct or intracranial hemorrhage. 2. Left posterior scalp swelling. ACT 112: Negative or not required by law. Electronically signed by: Sean Adame M.D. 10/23/2022 7:47 AM
--- NOTE | 2022-10-23 08:46 | XRay Report ---
XR chest 1V portable CLINICAL HISTORY: hyponatremia COMPARISON STUDY: Chest CT September 15, 2017. Chest radiograph August 31, 2021. FINDINGS: Emphysema is present. There is mild blunting of the left costophrenic angle. No definite pl eural effusion is present. There is no pneumothorax. Pulmonary vascularity is within normal limits. IMPRESSION: 1. Slight blunting of the left costophrenic angle. This could be due to atelectasis or a trace left p leural effusion. Mild airspace opacity could appear similar. Radiographic follow up is recommended. 2. Emphysema. ACT 112: Negative or not required by law. Electronically signed by: Haja Bundy M.D. 10/23/2022 8:44 AM
--- NOTE | 2022-10-23 09:15 | CT Scan Report ---
CERVICAL SPINE CT CT DOSE: 1355.52 mGy.cm HISTORY: fall TECHNIQUE: Multiaxial CT images of the cervical spine were performed and reformatted in the sagittal and coronal plane without the use of contrast. A dose lowering technique was utilized adhering to th e principles of ALARA. COMPARISON: None. FINDINGS: No fractures. No subluxation. Prevertebral soft tissues and the C1-C2 interval are intact. No pneumothorax. [id number] degenerative changes within the cervical spine most pronounced at t he C6-C7 level. Emphysema. IMPRESSION: No fractures within the cervical spine. ACT 112: Negative or not required by law. Electronically signed by: Sean Adame M.D. 10/23/2022 9:13 AM
--- NOTE | 2022-10-23 09:36 | Nephrology Consultation ---
Date of Consultation October 23, 2022 Assessment & Plan (1) Hyponatremia: Patient admitted with a 4 in setting of alcohol use. He was found to have sodium of 124 and this morning up to 126. His measured serum osmolality was 305 mOsm. Calculated osmolality of 380. Patient also had Ethyl alcohol level of 183.5 mg/dL on admission. Patient low sodium level is due to the high level of Ethyl alcohol in the serum. His osmolality is normal. Sodium expected to improve with clearance of the alcohol. No need for IV fluids unless patient is hypotensive. Okay to monitor sodium daily. History of Present Illness Reason for Consultation: Hyponatremia Requesting Physician: Olman Head MD Attending Physician: Olman Head MD History of Present Illness This is 72-year-old male with history of hypertension, COPD, schizophrenia, tobacco abuse and normal renal function at baseline who was admitted with altered mental status and fall. He is being seen for hyponatremia. Patient was recently hospitalized at psychiatric facility and discharged to [facility]. Patient reported left [facility] and went downtown to drink. He tells me he drank about 8 beers. He does not drink regularly. On admission patient was found to have a sodium of 124 and this morning is up to 126. He is Ethyl alcohol level was 183.5 mg/dL. Serum osmolality was measured at 305 mOsm. He feels better this morning. Denies any vomiting or diarrhea. He had 1 episode of vomiting last night. No shortness of breath. Patient is eating and drinking well. He is receiving IV normal saline infusion at 60 ml per hour Allergies Allergy/AdvReac Type Severity Reaction Status Date / Time lithium Allergy Unknown Verified 10/23/22 00:01 Home Medications Medication Instructions Recorded Confirmed Type acetaminophen 500 mg tablet 1,000 mg PO Q6H PRN Pain 10/23/22 10/23/22 History (Tylenol Extra Strength) amlodipine 10 mg tablet 10 mg PO DAILY 10/23/22 10/23/22 History benztropine 0.5 mg tablet 0.5 mg PO DIRECTED 10/23/22 10/23/22 History cholecalciferol (vitamin D3) 125 125 mcg PO DAILY 10/23/22 10/23/22 History mcg (5,000 unit) tablet (Vitamin D3) diphenhydramine HCl 25 mg tablet 25 mg PO BID PRN Itching 10/23/22 10/23/22 History (Benadryl Allergy) fluoxetine 10 mg capsule 10 mg PO DAILY 10/23/22 10/23/22 History fluoxetine 20 mg capsule 20 mg PO DAILY 10/23/22 10/23/22 History haloperidol 5 mg tablet 5 mg PO DIRECTED 10/23/22 10/23/22 History haloperidol decanoate 100 mg/mL 0 mg IM .[id number] 10/23/22 10/23/22 History intramuscular solution hydroxyzine HCl 10 mg tablet 10 mg PO DIRECTED 10/23/22 10/23/22 History propranolol 20 mg tablet 20 mg PO BID 10/23/22 10/23/22 History Patient History Medical History Bronchitis Chronic obstructive pulmonary disease Dehydration Dementia BOSCH (dyspnea on exertion) History of leukemia Hypertension Nicotine addiction Non-compliant patient Nonadherence to medication NSVT (nonsustained ventricular tachycardia) IN SETTING OF INFLUENZA AUG 2017 - DECLINED TO SEE WILDLIFE CONSERVATIONIST PER MEDICAL RECORD Schizophrenia Schizophrenia Smoker Surgical History History of tooth extraction Hx of right cataract extraction Family History Other Family history non-contributory Social History Smoking Status: Current every day smoker Tobacco Type: Cigarettes Cigarettes Per Day: 2ppd; Second Hand Exposure: No; Do You Dip or Chew Tobacco: No; Hx Alcohol Use: Yes Alcohol type: beer Hx Substance Use: No Preferred Language: Bulgarian Communication Ability: Effective 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 Beliefs That Will Affect Care: None Current Living Situation: Alone Current Living Situation Comment: was at [facility], signed self out Other Information That Helps Us Care for You: No Feels Safe at Home: Declines to Answer Safety Concerns: Feels Safe At This Time Assistive Devices: None Review of Systems Review of Systems: All other systems were reviewed and negative except as noted in HPI Physical Exam Physical Exam: General exam: Appears comfortable, no acute distress HEENT: Pupils are equal and reactive to light Neck: No JVD, neck is supple trachea is midline Respiratory system: Clear breath sounds bilaterally. Gastrointestinal: Abdomen is soft, non distended, non tender, bowel sounds are present CVS: Regular rate and rhythm. No murmurs, rubs or gallops Musculoskeletal: No joint or muscle tenderness Extremities: Non tender, no edema, peripheral pulses are present Neuro: Oriented, no tremors, no focal neurological deficits Skin: No rashes Results & Data ([facility]) Vital Signs (Past 12 Hours) Vital Signs Temp Pulse Pulse Resp BP BP Pulse Ox 10/23/22 07:08 36.6 C 63 18 151/90 H 94 10/23/22 04:12 36.5 C 63 18 139/77 92 10/23/22 02:50 36.5 C 74 18 157/97 H 97 10/23/22 01:00 10/23/22 01:00 66 10/23/22 01:05 10/23/22 01:05 36.5 C 74 20 157/97 H 97 10/23/22 00:30 64 20 158/94 H 95 10/23/22 00:00 74 22 135/97 95 10/23/22 00:00 135/97 10/22/22 23:30 71 22 155/81 H 95 10/22/22 23:01 67 20 145/91 H 96 10/22/22 22:34 72 20 211/107 H 95 10/22/22 22:00 72 20 169/103 H 96 10/22/22 21:31 75 22 191/108 H 97 Pulse Ox O2 Del Method O2 Del Method 10/23/22 07:08 Room Air 10/23/22 04:12 Room Air 10/23/22 02:50 Room Air 10/23/22 01:00 Room Air 10/23/22 01:00 10/23/22 01:05 97 Room Air 10/23/22 01:05 Room Air 10/23/22 00:30 10/23/22 00:00 10/23/22 00:00 10/22/22 23:30 10/22/22 23:01 10/22/22 22:34 10/22/22 22:00 10/22/22 21:31 Laboratory Results 10/23/22 05:13 10/22/22 10/22/22 10/23/22 20:42 20:42 05:13 WBC 13.26 H 11.69 H RBC 5.27 5.14 MCV 84.3 84.0 MCH 29.8 29.6 MCHC 35.4 35.2 RDW Std Deviation 42.6 41.0 RDW Coeff of Demond 13.7 13.4 Plt Count 298 292 MPV 9.6 9.5 Albumin 4.9
[2022-10-23] MEDS: ENOXAPARIN INJ 40 MG/0.4 ML SYR SQ SCH (09:43)
[2022-10-23] MEDS: PROPRANOLOL HCL 20 MG TAB PO SCH ×3 (10:16→19:59)
--- NOTE | 2022-10-23 10:54 | Electrocardiogram Report ---
Test Reason : Blood Pressure : / mmHG Vent. Rate : 065 BPM Atrial Rate : 065 BPM P-R Int : 136 ms QRS Dur : 086 ms QT Int : 406 ms P-R-T Axes : 059 -05 091 degrees QTc Int : 422 ms Normal sinus rhythm Nonspecific ST and T wave abnormality Abnormal ECG When compared with ECG of 19-MAY-2020 01:10, Nonspecific T wave abnormality now evident in Lateral leads Confirmed by Monster Samspon ([id number]) on 10/23/2022 10:54:27 AM Referred By: REFERRED SELF Confirmed By:Monster Sampson
[2022-10-23] MEDS ORDERED: OLANZapine 10 MG/2.1 ML SDV IM PRN (11:18)
--- NOTE | 2022-10-23 14:04 | Psychiatric Consultation ---
Date of Consultation October 23, 2022 Impression / Recommendations Impression 72 y/o man with a clearly-documented history of schizophrenia who has been refusing medication and making other choices demonstrative of extremely poor judgment, such as wishing to be homeless. He has a history of stroke and "demenia" appears as a problem in his chart. He had very disruptive, disorganized and risky behavior at his supported living home, but here has been fairly pleasant, appropriate, and cooperative with things other than medication. He is being held under a Part 302 petition for emergency involuntary psychiatric admission. While this allows us to prevent him from leaving, it does not permit us to medicate him involuntarily. We could certainly use medication involuntarily if he were to exhibit acutely dangerous behavior, but not in order to address the consequences of his poor decisions. I'm unable to determine if he has a significant degree of dementia. I'm not able to elicit any clear psychosis - while his dogged insistence he has no medical problems and needs no medication could be delusional, it could also reflect impaired memory or oppositionality. (1) Schizophrenia: Schizophrenia type: unspecified Qualified Code(s): F20.9 - Schizophrenia, unspecified Plan We need to determine if he has a DPOAH (with which his case folder can likely help). I'd like to arrange for a MOCA. It's possible he may need a guardian. We will keep working to try to engage pt in treatment. Psych History Identifying Data Trip Parrish is a 72-year-old M with a history of schizophrenia, admit on 10/22/2022 for hyponatremia. Consult is by the hospitalist service for "schizo phrenia, med non compliance". Chief Complaint "I'm perfectly fine". History of Present Illness ED Psychiatric Cse Waredresser note: "Trip arrived today via EMS on a 302 warrant after being found in the bathroom of a parking garage in [facility]. Accompanied Dr. Craig for initial meeting with patient in room B5 in the emergency department. Trip appears intoxicated, he admits to drinking alcohol today. He denies SI and HI. Medical clearance is pending, case management to continue to follow. 302 warrant was completed by staff at [facility] and reads as follows: "Diego is a resident of a mental health program, [facility]. Since October 11 he has refused to take all his medications and does have a history of being non-med compliant. Some of his diagnosis include; Bipolar Disorder with psychotic features, schizophrenia, paranoid schizophrenia, depression, COPD and hypertension. He was on 2 medications for HTN with a history of strokes. When he initially stopped taking his medications, we discussed the risk of heart attack and stroke with Diego. He laughed and said he wasnt worried about it. He has refused all day programming and doctors appointments for physical and mental health management. Over the past couple of weeks Diego has been restless, pacing around the house and very delusional at all hours. He is talking, laughing, cursing and yelling at his delusions. The other residents in his home have been woken up at all hours of the night due to his yelling, laughing and kicking objects around the house. He will repeatedly slam his bedroom door and the outside sliding glass door. The outside sliding glass door has been left hanging wide open on multiple occasions throughout the night within the past two weeks. He will repeatedly kick material objects inside and outside the home; siding, trash cans, chairs, lamps, dressers etc. Monica, [facility] staff, and case management have all tried to speak to Diego about his actions and his plan but he continues to listen to his voices and decompensate. He thinks th at he can get a place to rent [facility] for $200.00 a week or that he will go to [facility] as they have worked with him in the past. He was reminded within the past week, while speaking with [facility] that he would not be eligible to return to [facility] because he burned too many bridges. He stops taking his medications, becomes mentally unstable, poor decision making, and becomes destructive to the property and wont take care of himself. He has been refusing showers, to change or wash clothes. He doesnt think its necessary. He will urinate on himself and on the floor and without staff intervention will continue to wear those clothes, walking through the urine instead of cleaning it up. He has a difficult time taking care of himself on a good day when taking medications. He cannot take care of himself without them. Today he told staff that he was going to [place] to be homeless and then left via [employer] around 2:00pm."" On my exam, pt is very pleasant and superficially cooperative. He lies in bed in hospital-supplied scrubs moving constantly. His legs in particular move in patterns typical of tardive dyskinesia. Pt tells me his full name, says we're in [facility] in [facility], and gives the correct day, date, month, and year. He can't, though, say in what part of the hospital he is or tell me why he's hospitalized. When I ask if he has any medical issues he says "paranoid schizophrenia" but denies any other problems at all, specifically including hypertension and COPD. He is actually correct in telling me his BP "has been running, like, 150-something over 90-something" but thinks "that's an OK blood pressure". He denies he's had a stroke. He denies that there are any medications he's prescribed for any reason. He can repeat 3 objects on the first trial and recalls all 3 after intervening distracting questions. Chart review discloses that at some point "dementia" was added to his problem list, but I've been unable to determine when or on what basis. He receives monthly depot IM haloperidol decanoate injections of 100 mg, most recently on 06 October 2022. Past Psychiatric History Previous Psych Admissions: multiple Allergies Allergy/AdvReac Type Severity Reaction Status Date / Time lithium Allergy Unknown Verified 10/23/22 00:01 Home Medications Medication Instructions Recorded Confirmed Type acetaminophen 500 mg tablet 1,000 mg PO Q6H PRN Pain 10/23/22 10/23/22 History (Tylenol Extra Strength) amlodipine 10 mg tablet 10 mg PO DAILY 10/23/22 10/23/22 History benztropine 0.5 mg tablet 0.5 mg PO DIRECTED 10/23/22 10/23/22 History cholecalciferol (vitamin D3) 125 125 mcg PO DAILY 10/23/22 10/23/22 History mcg (5,000 unit) tablet (Vitamin D3) diphenhydramine HCl 25 mg tablet 25 mg PO BID PRN Insomnia 10/23/22 10/23/22 History (Benadryl Allergy) fluoxetine 10 mg capsule 10 mg PO DAILY 10/23/22 10/23/22 History fluoxetine 20 mg capsule 20 mg PO DAILY 10/23/22 10/23/22 History haloperidol 5 mg tablet 5 mg PO BID 10/23/22 10/23/22 History haloperidol decanoate 100 mg/mL 100 mg IM [id number] 10/23/22 10/23/22 History intramuscular solution hydroxyzine HCl 10 mg tablet 10 mg PO TID agitation 10/23/22 10/23/22 History propranolol 20 mg tablet 20 mg PO BID 10/23/22 10/23/22 History Patient History Medical History Bronchitis Chronic obstructive pulmonary disease Dehydration Dementia BOSCH (dyspnea on exertion) History of leukemia Hypertension Nicotine addiction Non-compliant patient Nonadherence to medication NSVT (nonsustained ventricular tachycardia) IN SETTING OF INFLUENZA AUG 2017 - DECLINED TO SEE HYDROGENATION OPERATOR PER MEDICAL RECORD Schizophrenia Schizophrenia Smoker Surgical History History of tooth extraction Hx of right cataract extraction Family History Other Family history non-contributory Social History Smoking Status: Current every day smoker Tobacco Type: Cigarettes Cigarettes Per Day: 2ppd; Second Hand Exposure: No; Do You Dip or Chew Tobacco: No; Hx Alcohol Use: Yes Alcohol type: beer Hx Substance Use: No Preferred Language: Amharic Communication Ability: Impaired Record Retrieval Specialist Required: No Beliefs That Will Affect Care: None Current Living Situation: Alone Current Living Situation Comment: was at [facility], signed self out Other Information That Helps Us Care for You: No Feels Safe at Home: Declines to Answer Safety Concerns: Feels Safe At This Time Assistive Devices: None Physical Exam Psychiatric: Orientation: alert, oriented to person, oriented to place and oriented to time Apperance: + disheveled Eye Contact: + fair eye contact Motor Behavior: + EPS normal latency, rate, duration, but very quiet Affect: + flat affect Mood: + dysphoric mood Thought Process: + concrete thought process Thought Content: + cognitive distortions Suicidal Thoughts: denies suicidal thoughts Homicidal Thoughts: denies homicidal thoughts denies hallucinations and I see no evidence of his responding to internal stimuli Cognition: recent memory grossly intact, attention grossly intact and language grossly intact; + remote memory not intact Estimated Intelligence: average estimated intelligence Insight: + severely impaired insight Judgment: + severely impaired judgement Vital Signs (Past 24 Hours): Last Vital Signs Temp 37.0 C 10/23/22 11:03 Pulse 73 10/23/22 11:03 Resp 18 10/23/22 11:03 BP 140/73 10/23/22 11:03 Pulse Ox 90 10/23/22 11:03 O2 Del Method Room Air 10/23/22 11:03 Exam Statement: A physical exam was performed by the hospitalist service at admission. I accept that physical as correct and adequate for the purposes of the inpatient physical exam. Results & Data (PSY) Medications Administered Calcium Carbonate (Calcium Carbonate 500 Mg Chewable Tab) 500 mg PO Q6H PRN PRN Reason: Heartburn Stop: 11/22/22 01:10 Last Admin: 10/23/22 01:27 Dose: 500 mg Documented By: BRANDON Enoxaparin Sodium (Enoxaparin Inj 40 Mg/0.4 Ml Syr) 40 mg SQ QAM [facility] Stop: 11/22/22 08:59 Last Admin: 10/23/22 09:43 Dose: Not Given Documented By: ZORAN Promethazine HCl 6.25 mg/ (Sodium Chloride) 50.25 mls @ 201 mls/hr IV Q6H PRN PRN Reason: Nausea And Vomiting Stop: 11/22/22 01:04 Last Infusion: 10/23/22 01:38 Dose: 0 mls/hr Documented By: Admin: 10/23/22 01:23 Dose: 201 mls/hr Documented By: BRANDON Propranolol HCl (Propranolol Hcl 20 Mg Tab) 20 mg PO BID [facility] Stop: 11/22/22 08:59 Last Admin: 10/23/22 10:16 Dose: Not Given Documented By: ZORAN Coding Level of Care Code INP/OBS CONSULT LVL 4, 60 MIN Diagnoses Schizophrenia F20.9 Schizophrenia type: unspecified Time Spent (min) 75
--- NOTE | 2022-10-23 14:07 | Hospitalist Progress Note ---
Date of Service October 23, 2022 Assessment & Plan (1) Hyponatremia: Plan: Status post fall, alcohol intoxication History of psychosis, schizophrenia CT head: OIld small infarct within the left basal ganglia and left parietal periventricular white matter. 1. No acute infarct or intracranial hemorrhage. 2. Left posterior scalp swelling. Cervical spine CT:IMPRESSION: No fractures within the cervical spine. Chest x-ray: 1. Slight blunting of the left costophrenic angle. This could be due to atelectasis or a trace left pleural effusion. Mild airspace opacity could appear similar. Radiographic follow up is recommended. 2. Emphysema. --Currently oriented x3, calm and cooperative --Monitor orthostatic vital signs Echocardiogram: Showing grade 1 diastolic dysfunction, no valvular defects noted -- Psychiatry service consulted Case management consulted PT and OT evaluation -- Continue to monitor closely Hyponatremia --Likely secondary to alcohol use, poor oral intake --Serum osmolarity 305 --Nephrology service consulted hypertension, elevated secondary to home blood pressure medication noncompliance --Continue propranolol hx NSVT History of CVA CT head: OIld small infarct within the left basal ganglia and left parietal periventricular white matter. -- will need aspirin, Lipitor CT angiogram of head and neck, or neck arterial Doppler study COPD, pulmonary status at baseline --Repeat chest x-ray tomorrow prediabetes, hemoglobin A1c of 5.8 from 2021 ongoing tobacco abuse Nicotine patch as needed DVT prophylaxis. Lovenox subcu Full code Disposition Pending Admission and Anticipated Discharge Date Admission Date: October 22, 2022 Subjective Follow-up for status post fall, alcohol intoxication, hyponatremia, history of psychosis/schizophrenia, etc. Seen with one-to-one observation INVENTORY CONTROLLER at the bedside Patient sleeping but easily awakened Calm, cooperative, oriented x3 Remembers being at a bathroom in a carport at [facility] and picked up by the police States he left [facility] yesterday, and went to [employer] [place] with a taxi to look for an apartment where he could stay States he does not want to take his psychiatric medications as this is just " setting me off" No headache, dizziness, blurring of vision, nausea vomiting, chest pain, cough, shortness of breath, abdominal pain, problems with urination or bowel movement Denies hallucinations, depression, anxiety, suicidal ideations No other symptoms Review of Systems Review of Systems: all noted and negative except for above Physical Exam Physical Exam: General- oriented x 3, not in distress, speaks in sentences with no effort or accessory muscle use Patient unkempt Head-positive hematoma on the left parietal area Eyes- anicteric Neck- no JVD Lungs- clear breath sounds bilaterally, no rales/wheezes Heart- normal rate, regular rhythm; no murmurs Abdomen- normal bowel sounds, nondistended, soft, nontender Extremities- no pretibial edema, no calf tenderness Neuro- alert, oriented x 3; no gross focal neurologic deficits Skin- warm & dry Results & Data Results & Data ([facility]) Vital Signs (Past 12 Hours) Vital Signs Temp Pulse Pulse Resp BP Pulse Ox O2 Del Method 10/23/22 08:00 63 10/23/22 08:00 Room Air 10/23/22 11:03 37.0 C 73 18 140/73 90 Room Air 10/23/22 07:08 36.6 C 63 18 151/90 H 94 Room Air 10/23/22 04:12 36.5 C 63 18 139/77 92 Room Air 10/23/22 02:50 36.5 C 74 18 157/97 H 97 Room Air all noted and reviewed including below
[2022-10-23] MEDS ORDERED: OPTIRAY 350 100ml IV ONE (15:49)
--- NOTE | 2022-10-23 16:41 | CT Scan Report ---
ABDOMEN AND PELVIS CT WITH IV CONTRAST CT DOSE: 389.40 mGy.cm HISTORY: Generalized abdominal pain. TECHNIQUE: Multiaxial CT images of the abdomen and pelvis were performed following the use of intrave nous contrast. A dose lowering technique was utilized adhering to the principles of ALARA. COMPARISON STUDY: None. FINDINGS: Emphysema is noted at the lung bases. No pneumoperitoneum. No pneumatosis. Bilateral L5 spo ndylolysis. Old, healed left-sided rib fractures are noted. No suspicious lytic or blastic osseous le sions. There is moderate circumferential thickening of the distal esophagus with mild adjacent edema/ fat stranding. This is consistent with a nonspecific esophagitis. The liver, gallbladder, adrenal gla nds, and pancreas are unremarkable. There are few punctate calcified granulomas within the spleen. Th e kidneys enhance normally. There is mild bilateral perinephric edema. The main portal vein is patent . Mild calcified plaque within the normal caliber abdominal aorta. No retroperitoneal lymphadenopathy . No pelvic free fluid or pelvic lymphadenopathy. Normal bladder. There is a hyperdense/enhancing nod ule within the right side of the prostate gland measuring 3 cm. This is best seen on image 376. Exten sive colonic diverticulosis. No evidence for acute diverticulitis. No bowel wall thickening or obstru ction. Normal appendix. IMPRESSION: 1. No bowel wall thickening or obstruction. 2. Normal appendix. 3. Extensive colonic diverticulosis. No evidence for acute diverticulitis. 4. A 3 cm hyperdense/enhancing nodule within the right side of the prostate gland. This could represe nt a BPH nodule or a malignancy. Follow-up nonemergent urology consultation recommended. 5. Moderate circumferential thickening of the distal esophagus with adjacent fat stranding/edema. Thi s favors an esophagitis. Consider follow-up endoscopy for further evaluation. 6. Mild bilateral perinephric edema. This may be chronic. Follow-up urinalysis recommended to exclude an infectious process. ACT 112: Negative or not required by law. Electronically signed by: Sean Adame M.D. 10/23/2022 4:39 PM
--- NOTE | 2022-10-23 19:11 | Communication Note ---
Date of Service: October 23, 2022 Overnight, patient with heartburn complaints not fully responsive to IV Pepcid. Made aware of CT abdomen pelvis results from a.m. 1. No bowel wall thickening or obstruction. 2. Normal appendix. 3. Extensive colonic diverticulosis. No evidence for acute diverticulitis. 4. A 3 cm hyperdense/enhancing nodule within the right side of the prostate gland. This could represent a BPH nodule or a malignancy. Follow-up nonemergent urology consultation recommended. 5. Moderate circumferential thickening of the distal esophagus with adjacent fat stranding/edema. This favors an esophagitis. Consider follow-up endoscopy for further evaluation. 6. Mild bilateral perinephric edema. This may be chronic. Follow-up urinalysis recommended to exclude an infectious process. AP Esophagitis, GERD BPH nodule PPI GI consult if without improvement Outpatient urology consult Re: Enhancing BPH nodule
[2022-10-23] MEDS: PANTOprazole 40 MG TAB PO SCH (19:54)
[2022-10-23] MEDS: MELATONIN 3 MG TAB PO PRN (21:03)
[2022-10-24 06:30] LABS: Calcium 8.5 mg/dl (8.5-10.1); Potassium 4.9 mmol/L (3.5-5.1)
[2022-10-24 06:36] LABS: BUN Creatinine Ratio 16.5 (10-20); Creatinine Clr Calc Pharmacy 62.2 ml/min; Est GFR (African American) 78.7 ml/min; Est GFR (Non-African American) 67.9 ml/min
[2022-10-24] MEDS: ENOXAPARIN INJ 40 MG/0.4 ML SYR SQ SCH ×2 (08:45→08:50)
[2022-10-24] MEDS: PROPRANOLOL HCL 20 MG TAB PO SCH ×2 (08:45→19:54)
[2022-10-24] MEDS ORDERED: SODIUM CHLORIDE 0.9% 1000ML 1,000 ML IV SCH (09:00)
[2022-10-24] MEDS: amLODIPine BESYLATE 5 MG TAB PO SCH (09:34)
--- NOTE | 2022-10-24 11:21 | Psychiatric Consultation ---
Date of Consultation October 24, 2022 Impression / Recommendations Impression 10/24/2022: 72 y/o man with schizophrenia and treatment refusal who has now accepted non- psychiatric oral medications and agreed to receive haloperidol decanoate. He's making poor decisions, but I find no clear psychotic basis for that as opposed to plain obstinacy. It's recommended not to administer doses of haloperidol decanoate greater than 100 mg at once, and if higher doses are needed to administer the balance 3-7 days later. He received 100 mg on 10/06/2022 so can be given 100 mg now. Using the typical conversion rate of 10-20 times the oral daily dose (in his case ordered as 5 mg BID), he would ideally recieve a 2nd 100 mg injection 3 days from now. At this time I do not believe he requires emergency involuntary psychiatric admisssion and would not likely benefit from forced admission. Once he's medically able to transition to outpatient treatment, please let us know right away because we have a brief 2-hour window in which to act on his part 302 warrant. 10/23/2022: 72 y/o man with a clearly-documented history of schizophrenia who has been refusing medication and making other choices demonstrative of extremely poor judgment, such as wishing to be homeless. He has a history of stroke and "dementia" appears as a problem in his chart. He had very disruptive, disorganized and risky behavior at his supported living home, but here has been fairly pleasant, appropriate, and cooperative with things other than medication. He is being held under a Part 302 petition for emergency involuntary psychiatric admission. While this allows us to prevent him from leaving, it does not permit us to medicate him involuntarily. We could certainly use medication involuntarily if he were to exhibit acutely dangerous behavior, but not in order to address the consequences of his poor decisions. I'm unable to determine if he has a significant degree of dementia. I'm not able to elicit any clear psychosis - while his dogged insistence he has no medical problems and needs no medication could be delusional, it could also reflect impaired memory or oppositionality. (1) Schizophrenia: Schizophrenia type: unspecified Qualified Code(s): F20.9 - Schizophrenia, unspecified Plan haloperidol 100 mg IM (via Z-track injection) now and again in 3 days. Psych History Identifying Data Trip Parrish is a 72-year-old M with a history of schizophrenia, admit on 10/22/2022 for hyponatremia. Consult is by the hospitalist service for "schizophrenia, med non compliance". Chief Complaint "I'm really fine". History of Present Illness Pt seen for psychiatric consultation follow-up (previous note excerpted below). He has now accepted propranolol and amlodipine, but not fluoxetine or halop eridol. He continues to say that he should be allowed to leave to pursue his own plans and course even though that involves what says will mean "being voluntarily homeless for a while". He is now willing to receive a haloperidol decanoate injection before he leaves, though he emphasizes that he won't take any oral psychiatric medication. I'm still unable to elicit any delusions - while I think he's clearly quite wrong about such things as how easily he'll find housing, that's not really delusional. I'm also not able to elicit any hallucinations. (From 10/23/2022 consultation note) ED Psychiatric Cse Food Broker note: "Trip arrived today via EMS on a 302 warrant after being found in the bathroom of a parking garage in [facility]. Accompanied Dr. Craig for initial meeting with patient in room B5 in the emergency department. Trip appears intoxicated, he admits to drinking alcohol today. He denies SI and HI. Medical clearance is pending, case management to continue to olga chang. 302 warrant was completed by staff at [facility] and reads as follows: "Diego is a resident of a mental health program, [facility]. Since October 11 he has refused to take all his medications and does have a history of being non-med compliant. Some of his diagnosis include; Bipolar Disorder with psychotic features, schizophrenia, paranoid schizophrenia, depression, COPD and hypertension. He was on 2 medications for HTN with a history of strokes. When he initially stopped taking his medications, we discussed the risk of heart attack and stroke with Diego. He laughed and said he wasnt worried about it. He has refused all day programming and doctors appointments for physical and mental health management. Over the past couple of weeks Diego has been restless, pacing around the house and very delusional at all hours. He is talking, laughing, cursing and yelling at his delusions. The other residents in his home have been woken up at all hours of the night due to his yelling, laughing and kicking objects around the house. He will repeatedly slam his bedroom door and the outside sliding glass door. The outside sliding glass door has been left hanging wide open on multiple occasions throughout the night within the past two weeks. He will repeatedly kick material objects inside and outside the home; siding, trash cans, chairs, lamps, dressers etc. Monica, [facility] staff, and case management have all tried to speak to Diego about his actions and his plan but he continues to listen to his voices and decompensate. He thinks jenny t he can get a place to rent [facility] for $200.00 a week or that he will go to [facility] as they have worked with him in the past. He was reminded within the past week, while speaking with [facility] CMs that he would not be eligible to return to [facility] because he burned too many bridges. He stops taking his medications, becomes mentally unstable, poor decision making, and becomes destructive to the property and wont take care of himself. He has been refusing showers, to change or wash clothes. He doesnt think its necessary. He will urinate on himself and on the floor and without staff intervention will continue to wear those clothes, walking through the urine instead of cleaning it up. He has a difficult time taking care of himself on a good day when taking medications. He cannot take care of himself without them. Today he told staff that he was going to [place] to be homeless and then left via [employer] around 2:00pm."" On my exam, pt is very pleasant and superficially cooperative. He lies in bed in hospital-supplied scrubs moving constantly. His legs in particular move in patterns typical of tardive dyskinesia. Pt tells me his full name, says we're in [facility] in [facility], and gives the correct day, date, month, and year. He can't, though, say in what part of the hospital he is or tell me why he's hospitalized. When I ask if he has any medical issues he says "paranoid schizophrenia" but denies any other problems at all, specifically including hypertension and COPD. He is actually correct in telling me his BP "has been running, like, 150-something over 90-something" but thinks "that's an OK blood pressure". He denies he's had a stroke. He denies that there are any medications he's prescribed for any reason. He can repeat 3 objects on the first trial and recalls all 3 after intervening distracting questions. Chart review discloses that at some point "dementia" was added to his problem l ist, but I've been unable to determine when or on what basis. He receives monthly depot IM haloperidol decanoate injections of 100 mg, most recently on 06 October 2022. Allergies Allergy/AdvReac Type Severity Reaction Status Date / Time lithium Allergy Unknown Verified 10/23/22 00:01 Home Medications Medication Instructions Recorded Confirmed Type acetaminophen 500 mg tablet 1,000 mg PO Q6H PRN Pain 10/23/22 10/23/22 History (Tylenol Extra Strength) amlodipine 10 mg tablet 10 mg PO DAILY 10/23/22 10/23/22 History benztropine 0.5 mg tablet 0.5 mg PO DIRECTED 10/23/22 10/23/22 History cholecalciferol (vitamin D3) 125 125 mcg PO DAILY 10/23/22 10/23/22 History mcg (5,000 unit) tablet (Vitamin D3) diphenhydramine HCl 25 mg tablet 25 mg PO BID PRN Insomnia 10/23/22 10/23/22 History (Benadryl Allergy) fluoxetine 10 mg capsule 10 mg PO DAILY 10/23/22 10/23/22 History fluoxetine 20 mg capsule 20 mg PO DAILY 10/23/22 10/23/22 History haloperidol 5 mg tablet 5 mg PO BID 10/23/22 10/23/22 History haloperidol decanoate 100 mg/mL 100 mg IM .[id number] 10/23/22 10/23/22 History intramuscular solution hydroxyzine HCl 10 mg tablet 10 mg PO TID agitation 10/23/22 10/23/22 History propranolol 20 mg tablet 20 mg PO BID 10/23/22 10/23/22 History Patient History Medical History Bronchitis Chronic obstructive pulmonary disease Dehydration Dementia BOSCH (dyspnea on exertion) History of leukemia Hypertension Nicotine addiction Non-compliant patient Nonadherence to medication NSVT (nonsustained ventricular tachycardia) IN SETTING OF INFLUENZA AUG 2017 - DECLINED TO SEE PRINTER APPRENTICE PER MEDICAL RECORD Schizophrenia Schizophrenia Smoker Surgical History History of tooth extraction Hx of right cataract extraction Family History Other Family history non-contributory Social History Smoking Status: Current every day smoker Tobacco Type: Cigarettes Cigarettes Per Day: 2ppd; Second Hand Exposure: No; Do You Dip or Chew Tobacco: No; Hx Alcohol Use: Yes Alcohol type: beer Hx Substance Use: No Preferred Language: Cameroonian Communication Ability: Impaired Survey Research Analyst Required: No Beliefs That Will Affect Care: None Current Living Situation: Alone Current Living Situation Comment: was at [facility], signed self out Other Information That Helps Us Care for You: No Feels Safe at Home: Declines to Answer Safety Concerns: Feels Safe At This Time Assistive Devices: None Physical Exam Psychiatric: Orientation: alert, oriented to person, oriented to place and oriented to time Apperance: + disheveled Eye Contact: + fair eye contact Motor Behavior: + EPS Affect: + flat affect Mood: + dysphoric mood Thought Process: + concrete thought process Thought Content: + cognitive distortions Suicidal Thoughts: denies suicidal thoughts Homicidal Thoughts: denies homicidal thoughts Cognition: recent memory grossly intact, attention grossly intact and language grossly intact; + remote memory not intact Estimated Intelligence: average estimated intelligence Insight: + severely impaired insight Judgment: + severely impaired judgement Vital Signs (Past 24 Hours): Last Vital Signs Temp 36.5 C 10/24/22 11:05 Pulse 60 10/24/22 11:05 Resp 22 10/24/22 11:05 BP 170/103 H 10/24/22 11:05 Pulse Ox 95 10/24/22 11:05 O2 Del Method Room Air 10/24/22 11:05 Results & Data (PSY) Medications Administered Amlodipine Besylate (Amlodipine Besylate 5 Mg Tab) 10 mg PO QAM NARAYAN Stop: 11/23/22 09:29 Last Admin: 10/24/22 09:34 Dose: 10 mg Documented By: MG Calcium Carbonate (Calcium Carbonate 500 Mg Chewable Tab) 500 mg PO Q6H PRN PRN Reason: Heartburn Stop: 11/22/22 01:10 Last Admin: 10/23/22 01:27 Dose: 500 mg Documented By: BRANDON Enoxaparin Sodium (Enoxaparin Inj 40 Mg/0.4 Ml Syr) 40 mg SQ QAM NARAYAN Stop: 11/22/22 08:59 Last Admin: 10/24/22 08:50 Dose: Not Given Documented By: Admin: 10/23/22 09:43 Dose: Not Given Documented By: ZORAN Promethazine HCl 6.25 mg/ (Sodium Chloride) 50.25 mls @ 201 mls/hr IV Q6H PRN PRN Reason: Nausea And Vomiting Stop: 11/22/22 01:04 Last Infusion: 10/23/22 01:38 Dose: 0 mls/hr Documented By: Admin: 10/23/22 01:23 Dose: 201 mls/hr Documented By: BRANDON Melatonin (Melatonin 3 Mg Tab) 3 mg PO HS PRN PRN Reason: Sleep Stop: 11/22/22 20:39 Last Admin: 10/23/22 21:03 Dose: 3 mg Documented By: FELICIA Pantoprazole Sodium (Pantoprazole 40 Mg Tab) 40 mg PO HS NARAYAN Stop: 11/22/22 19:14 Last Admin: 10/23/22 19:54 Dose: 40 mg Documented By: FELICIA Propranolol HCl (Propranolol Hcl 20 Mg Tab) 20 mg PO BID NARAYAN Stop: 11/22/22 08:59 Last Admin: 10/24/22 08:45 Dose: 20 mg Documented By: Admin: 10/23/22 19:59 Dose: 20 mg Documented By: Admin: 10/23/22 10:16 Dose: Not Given Documented By: ZORAN Coding Level of Care Code 06427 [facility] Intl Hosp Care Lvl 2 Diagnoses Schizophrenia F20.9 Schizophrenia type: unspecified Time Spent (min) 56
--- NOTE | 2022-10-24 11:25 | Nephrology Progress Note ---
Date of Service October 24, 2022 Assessment & Plan (1) Hyponatremia: Plan: Patient admitted with serum sodium 124 in setting of alcohol use on October 22 midday. His measured serum osmolality was 305 mOsm. Calculated osmolality of 380. Patient also had Ethyl alcohol level of 183.5 mg/dL on admission. Admission impression was that the patient's low sodium level due to the high level of Ethyl alcohol in the serum> however hyponatremia has persisted now for 48 hours. His osmolality is normal. Sodium expected to improve with clearance of the alcohol but has not. No need for IV fluids unless patient is hypotensive. -recheck bmp, serum osms, EtOH level, urine osms, rd urine sodium midday ordered Note he is not currently on a fluid restriction and will reevaluate for need based on above data Admission and Anticipated Discharge Date Admission Date: October 22, 2022 Subjective No acute interval clinical events. Remains with a sitter patient denies shortness of breath orthopnea nausea vomiting. Sitter reports he had dry heaves this morning but he states this is related to drinking his coffee too fast Review of Systems Review of Systems: All systems reviewed & are unremarkable except as noted in Subjective Physical Exam Constitutional: well developed, well nourished and cooperative; no acute distress Eyes: EOM intact bilaterally ENMT: Ears: no external ear abnormality Nose: no external nose abnormality Mouth: + dry oral mucous membranes Neck: no nuchal rigidity Respiratory: normal respiratory effort Auscultation: + diminished lung sounds and + crackles (Bibasilar) Cardiovascular: RRR, no murmur, no edema Gastrointestinal (Abdomen): Inspection/Auscultation: normal bowel sounds Percussion/Palpation: abdomen soft; abdomen nontender Musculoskeletal: Extremities: strength 5/5 throughout Skin: no rashes, warm and dry Neurologic: brandon, fluent speech, no tremor Results & Data ([facility]) Vital Signs (Past 12 Hours) Vital Signs Temp Pulse Pulse Resp BP BP Pulse Ox 10/24/22 11:05 36.5 C 60 22 170/103 H 95 10/24/22 09:54 10/24/22 07:55 36.5 C 64 22 191/92 H 97 10/24/22 06:01 63 10/24/22 06:23 36.5 C 58 L 20 165/94 H 93 10/24/22 01:05 Pulse Ox O2 Del Method O2 Del Method 10/24/22 11:05 Room Air 10/24/22 09:54 Room Air 10/24/22 07:55 Room Air 10/24/22 06:01 10/24/22 06:23 Room Air 10/24/22 01:05 95 Room Air Laboratory Results 10/23/22 05:13 10/24/22 05:34
[2022-10-24] MEDS ORDERED: HALOPERIDOL DECANOATE INJ 50 MG/ML VIAL IM ONE (12:00)
[2022-10-24 12:40] LABS: Calcium 9.4 mg/dl (8.5-10.1); Est GFR (African American) 69.4 ml/min; Est GFR (Non-African American) 59.9 ml/min; Potassium 4.3 mmol/L (3.5-5.1)
--- NOTE | 2022-10-24 16:36 | Hospitalist Progress Note ---
Date of Service October 24, 2022 Assessment & Plan (1) Hyponatremia: Plan: Status post fall, alcohol intoxication History of psychosis, schizophrenia CT head: OIld small infarct within the left basal ganglia and left parietal periventricular white matter. 1. No acute infarct or intracranial hemorrhage. 2. Left posterior scalp swelling. Cervical spine CT:IMPRESSION: No fractures within the cervical spine. Chest x-ray: 1. Slight blunting of the left costophrenic angle. This could be due to atelectasis or a trace left pleural effusion. Mild airspace opacity could appear similar. Radiographic follow up is recommended. 2. Emphysema. --Currently oriented x3, calm and cooperative --Monitor orthostatic vital signs Echocardiogram: Showing grade 1 diastolic dysfunction, no valvular defects noted -- Psychiatry service consulted Case management consulted PT and OT evaluation -- Continue to monitor closely 10/24 Patient calm and cooperative today Oriented No headache, neck pain, or any pain Psychiatry service on board Haldol IM 1 dose given today, then repeat after 72 hours PT and OT evaluation Hyponatremia --Likely secondary to alcohol use, poor oral intake --Serum osmolarity 305 --Nephrology service consulted 10/24 Sodium this morning 124, now 128 Continue to monitor hypertension, elevated secondary to home blood pressure medication noncompliance --Continue propranolol Usual amlodipine 10 mg p.o. daily started As needed hydralazine ordered May need lisinopril or HCTZ hx NSVT History of CVA CT head: Old small infarct within the left basal ganglia and left parietal periventricular white matter. -- will need aspirin, Lipitor CT angiogram of head and neck, or neck arterial Doppler study COPD, pulmonary status at baseline --Repeat chest x-ray today prediabetes, hemoglobin A1c of 5.8 from 2021 ongoing tobacco abuse Nicotine patch as needed DVT prophylaxis. Lovenox subcu Full code Disposition Pending Admission and Anticipated Discharge Date Admission Date: October 22, 2022 Subjective ff up for fall, hyponatremia, etc seen resting in bed, comfortable 1:1 observation in process Resting in bed, sleeping but easily awakened States he feels fine overall Was having abdominal pain overnight, denies abdominal pain today No nausea, tolerating food well Denies headache, dizziness, blurring of vision, chest pain, shortness of breath States mood is okay today Denies depression, anxiety, suicidal ideation No other symptoms Review of Systems Review of Systems: all noted and negative except for above Physical Exam Physical Exam: General- oriented x 2, not in distress, speaks in sentences with no effort or accessory muscle use Eyes- anicteric Neck- no JVD Lungs- clear breath sounds bilaterally, no rales/wheezes Heart- normal rate, regular rhythm; no murmurs Abdomen- normal bowel sounds, nondistended, soft, nontender Extremities- no pretibial edema, no calf tenderness Neuro- alert, oriented x 2; no gross focal neurologic deficits Skin- warm & dry Psych- appropriate affect, denies suicidal ideation Results & Data Results & Data ([facility]) Vital Signs (Past 12 Hours) Vital Signs Temp Pulse Pulse Pulse Resp BP BP 10/24/22 14:14 66 10/24/22 15:07 37 C 66 18 160/85 H 10/24/22 11:05 36.5 C 60 22 170/103 H 10/24/22 09:54 10/24/22 07:55 36.5 C 64 22 191/92 H 10/24/22 06:01 63 10/24/22 06:23 36.5 C 58 L 20 165/94 H Pulse Ox O2 Del Method 10/24/22 14:14 10/24/22 15:07 97 Room Air 10/24/22 11:05 95 Room Air 10/24/22 09:54 Room Air 10/24/22 07:55 97 Room Air 10/24/22 06:01 10/24/22 06:23 93 Room Air all noted and reviewed including below
[2022-10-24] MEDS ORDERED: hydrALAZINE HCL 20 MG/ML VIAL IV PRN (16:40)
--- NOTE | 2022-10-24 19:05 | XRay Report ---
XR chest 1V portable HISTORY: 72 years-old Male ff up, r/o pneumonia acute shortness of breath COMPARISON: 10/22/2022 TECHNIQUE: AP view the chest FINDINGS: Cardiomediastinal and hilar silhouettes are within normal limits. Emphysema with chronic interstitial coarsening. No pneumothorax, pleural effusion, airspace consolidation or overt pulmonary edema. Bone s appear grossly intact. IMPRESSION: Emphysema without acute process. ACT 112: Negative or not required by law. The above report was generated using voice recognition software. It may contain grammatical, syntax o r spelling errors. Electronically signed by: Victorino Urban M.D. 10/24/2022 7:04 PM
[2022-10-24] MEDS: MELATONIN 3 MG TAB PO PRN (19:54)
[2022-10-24] MEDS: PANTOprazole 40 MG TAB PO SCH (19:55)
[2022-10-25 07:15] LABS: BUN Creatinine Ratio 18.9 (10-20); Calcium 8.9 mg/dl (8.5-10.1); Creatinine Clr Calc Pharmacy 63.9 ml/min; Est GFR (African American) 81.4 ml/min; Est GFR (Non-African American) 70.3 ml/min; Potassium 3.8 mmol/L (3.5-5.1)
[2022-10-25] MEDS: PROPRANOLOL HCL 20 MG TAB PO SCH ×2 (08:20→19:31)
[2022-10-25] MEDS: amLODIPine BESYLATE 5 MG TAB PO SCH (08:21)
[2022-10-25] MEDS: ENOXAPARIN INJ 40 MG/0.4 ML SYR SQ SCH (08:22)
--- NOTE | 2022-10-25 09:07 | Nephrology Progress Note ---
Date of Service October 25, 2022 Assessment & Plan (1) Hyponatremia: Plan: Patient admitted with serum sodium 124 in setting of alcohol use on October 22 midday. His measured serum osmolality was 305 mOsm. Calculated osmolality of 380. Patient also had Ethyl alcohol level of 183.5 mg/dL on admission. Admission impression was that the patient's low sodium level due to the high level of Ethyl alcohol in the serum> however hyponatremia has persisted now for > 48 hours. sodium did not improve as expected with clearance of the alcohol but has not. No need for IV fluids unless patient is hypotensive. sNa 126 today >> goal is 132 tomorrow -started lasix 40 mg IVbid17 and K 20 mEq daily -started 1.5L FR -started Mccarty as well 15 gm bid -protein shakes do NOT count toward FR and should be encouraged -recheck bmp 1500 ordered Admission and Anticipated Discharge Date Admission Date: October 22, 2022 Subjective remains w/ sitter; denies sob or thirst/poor po; tells me repeatedly he wants to be d/c today Review of Systems Review of Systems: All systems reviewed & are unremarkable except as noted in Subjective Physical Exam Constitutional: well developed, well nourished and cooperative; no acute distress Eyes: EOM intact bilaterally ENMT: Ears: no external ear abnormality Nose: no external nose abnormality Mouth: + dry oral mucous membranes Neck: no nuchal rigidity Respiratory: normal respiratory effort Auscultation: + diminished lung soun ds and + crackles (Bibasilar) Cardiovascular: RRR, no murmur, no edema Gastrointestinal (Abdomen): Inspection/Auscultation: normal bowel sounds Percussion/Palpation: abdomen soft; abdomen nontender Musculoskeletal: Extremities: strength 5/5 throughout Skin: no rashes, warm and dry Neurologic: brandon, fluent speech once he overcomes slight psychomotor delay, no tremor Psychiatric: Orientation: oriented x 3 Affect: + flat affect and + irritable affect Results & Data ([facility]) Vital Signs (Past 12 Hours) Vital Signs Temp Pulse Pulse Resp BP BP Pulse Ox 10/25/22 07:31 36.4 C L 63 150/85 H 96 10/25/22 07:22 55 L 10/25/22 00:58 10/24/22 22:02 56 L 10/24/22 21:56 36.6 C 57 L 18 146/85 H 94 Pulse Ox O2 Del Method O2 Del Method 10/25/22 07:31 Room Air 10/25/22 07:22 10/25/22 00:58 96 Room Air 10/24/22 22:02 10/24/22 21:56 Room Air Laboratory Results 10/23/22 05:13 10/25/22 06:06
[2022-10-25] MEDS ORDERED: LORazepam 2 MG/1 ML VIAL IV STA (09:41)
[2022-10-25] MEDS: FUROSEMIDE 40 MG/4 ML VIAL IV SCH ×2 (11:58→17:52)
[2022-10-25] MEDS ORDERED: LORazepam 2 MG/1 ML VIAL IV PRN (13:16)
[2022-10-25] MEDS: UREA (UREA-NA) 15 GM PACK PO SCH ×2 (13:53→19:32)
--- NOTE | 2022-10-25 15:47 | Communication Note ---
Date of Service: October 25, 2022 Interim History: Although pt has steadfastly refused to take any oral psychiatric medication, yesterday he offered to accept a haloperidol decanoate injection if it would help convince me to let him leave. He did in fact accept the injection. Around 1030 this morning pt tried to get dressed to leave, pulled off cardiac monitoring leads, and became somewhat loud and agitated. He was given PRN lorazepam and by the time I arrived was no longer agitated but merely somewhat cranky. He continues to assert that he doesn't need to take any medication but has eventually accepted amlodipine and propranolol fairly consistently. It is perhaps noteworthy that the weather right now is unpleasant with freezing drizzle but pt insists that's not a problem. He recalls me and previous discussions with me accurately and is oriented to all spheres. Impression: I remain unable to elicit any outright delusions or evidence of hallucinations. Staff who know pt from previous contacts report that he often mutters to himself, which he is not doing currently. He has referred to himself in the third person, which is certainly odd but not necessarily indicative of a psychotic process. I continue to believe that he is using very poor judgment by refusing many of his medications and rejecting available housing, but I can't really attribute that to his mental illness. Recommendation: I continue to hope that we may be able to administer a second 100 mg haloperidol decanoate injection 72 hours after the one yesterday, which should roughly make up for the 5 mg BID oral haloperidol he will surely not take. Once the hospitalist service determines that he's medically stable, will will rapidly need to assess whether to uphold the 302 petition or not. Until then, there is a 302 petitioning statement on the chart. The patient should remain on safety precautions with 1-on-1 pending medical clearance. The patient is not psychiatrically cleared to leave the hospital without additional safety or aftercare planning; this patient should not be allowed to leave AMA without notification to our service as a 302 warrant may be appropriate.
--- NOTE | 2022-10-25 16:24 | Hospitalist Progress Note ---
Date of Service October 25, 2022 Assessment & Plan (1) Hyponatremia: Plan: Status post fall, alcohol intoxication History of psychosis, schizophrenia --Patient not adherent to medications and left [facility] AGAINST MEDICAL ADVICE [place], status post fall Brought in by the police CT head: Old small infarct within the left basal ganglia and left parietal periventricular white matter. 1. No acute infarct or intracranial hemorrhage. 2. Left posterior scalp swelling Cervical spine CT:IMPRESSION: No fractures within the cervical spine. Chest x-ray: 1. Slight blunting of the left costophrenic angle. This could be due to atelectasis or a trace left pleural effusion. Mild airspace opacity could appear similar. Radiographic follow up is recommended. 2. Emphysema. Echocardiogram: Showing grade 1 diastolic dysfunction, no valvular defects noted -- Psychiatry service consulted: still declining to take his usual Fluoxetine Haldol IM 1 dose 10/24, then repeat after 72 hours maintain 302 Case management consulted PT and OT evaluation 10/25 Patient calm and cooperative but wanting to leave AMA oriented x 3 explained he still has hyponatremia and elevated BP Discussed with psychiatrist Dr. Vora, recommend to maintain the O2 petition as patient still not medically cleared PRN Ativan ordered Hyponatremia --Likely secondary to alcohol use, poor oral intake --Serum osmolarity 305 --Nephrology service consulted 10/25 Sodium still low at 126 Maintenance Mechanic Supervisor on board Recommend Lasix 20 mg IV twice daily Urea twice daily Continue to monitor closely Hypertension -- Not adherent to medications --Continued on usual propranolol and amlodipine Patient taking above medications while admitted BP still not at goal Add lisinopril 5 mg daily As needed hydralazine ordered History of NSVT -- Continue propranolol History of CVA CT head: Old small infarct within the left basal ganglia and left parietal periventricular white matter. -- not on aspirin, Lipitor --> will start will also need CT angiogram of head and neck, or neck arterial Doppler study COPD -- Not in exacerbation -- CXR: Emphysema without acute process. Prediabetes -- hemoglobin A1c of 5.8 from 2021 Ongoing tobacco abuse DVT prophylaxis. Lovenox subcu Full code Disposition Pending Will need psych reevaluation on the day of discharge to determine whether 302 petition can be lifted Patient will need to be discharged in a supervised setting Admission and Anticipated Discharge Date Admission Date: October 22, 2022 Subjective ff up for s/p fall, alcohol intoxication, hyponatremia, history of schizophrenia, etc notified by RN that patient wants to leave today seen resting in bed, not in distress states he wants to leave today when inquired why - states he does not like being examined frequently and would not further elucidate no other symptoms denies headache, dizziness, blurred vision, chest pain, abdominal pain or any other symptoms oriented x 3 can state his current medical problems, consequences of leaving Review of Systems Review of Systems: all noted and negative except for above Physical Exam Physical Exam: General- oriented x 3, not in distress, speaks in sentences with no effort or accessory muscle use Eyes- anicteric Neck- no JVD Lungs- clear breath sounds bilaterally, no crackles Heart- normal rate, regular rhythm; no murmurs Abdomen- normal bowel sounds, nondistended, soft, no tenderness Extremities- no pretibial edema, no calf tenderness Neuro- alert, oriented x 3; no gross focal neurologic deficits Skin- warm & dry Results & Data Results & Data ([facility]) Vital Signs (Past 12 Hours) Vital Signs Temp Pulse Pulse BP Pulse Ox O2 Del Method 10/25/22 11:27 36.4 C L 60 158/84 H 96 Room Air 10/25/22 07:31 36.4 C L 63 150/85 H 96 Room Air 10/25/22 07:22 55 L all noted and reviewed including below
[2022-10-25 16:28] LABS: BUN Creatinine Ratio 34.4 (10-20); Calcium 9.5 mg/dl (8.5-10.1); Creatinine Clr Calc Pharmacy 51.7 ml/min; Est GFR (Non-African American) 54.4 ml/min; Potassium 4.2 mmol/L (3.5-5.1)
[2022-10-25] MEDS ORDERED: lisinopril 5 MG TAB PO SCH (17:00)
[2022-10-25] MEDS: LORazepam 0.5 MG TAB PO PRN ×2 (17:48→19:31)
[2022-10-25] MEDS: MELATONIN 3 MG TAB PO PRN (19:31)
[2022-10-25] MEDS: PANTOprazole 40 MG TAB PO SCH (19:32)
[2022-10-25] MEDS: POTASSIUM CHLORIDE CRTAB 20 MEQ TABCR PO SCH (19:32)
[2022-10-25] MEDS ORDERED: ALBUT/IPRATROP 3MG/0.5MG NEB 3 ML VIAL NEB STA (19:52)
--- NOTE | 2022-10-25 20:14 | XRay Report ---
XR chest 1V portable CLINICAL HISTORY: coarse breath sounds COMPARISON STUDY: Chest CT September 15, 2017. Chest radiograph October 24, 2022. FINDINGS: There is emphysema. No pneumothorax or pleural effusion is noted. Cardiomediastinal silhoue tte is normal. No consolidation is identified. There is no evidence for pulmonary edema. IMPRESSION: No acute cardiopulmonary findings. Emphysema. ACT 112: Negative or not required by law. Electronically signed by: Haja Bundy M.D. 10/25/2022 8:13 PM
[2022-10-26 06:57] LABS: BUN Creatinine Ratio 38.6 (10-20); Calcium 9.6 mg/dl (8.5-10.1); Chol HDL Ratio 4.5 (0-5); Creatinine Clr Calc Pharmacy 53.3 ml/min; Est GFR (African American) 65.4 ml/min; Est GFR (Non-African American) 56.5 ml/min; Potassium 4.2 mmol/L (3.5-5.1)
--- NOTE | 2022-10-26 08:01 | Nephrology Progress Note ---
Date of Service October 26, 2022 Assessment & Plan (1) Hyponatremia: Plan: Patient admitted with serum sodium 124 in setting of alcohol use on October 22 midday. His measured serum osmolality was 305 mOsm. Calculated osmolality of 380. Patient also had Ethyl alcohol level of 183.5 mg/dL on admission. Admission impression was that the patient's low sodium level due to the high level of Ethyl alcohol in the serum> however hyponatremia has persisted now for > 48 hours after EtOH cleared. sodium did not improve as expected with clearance of the alcohol. euvolemic hyponatremia > suspect med/nutrition/structural lung disease driven. sNa 126 again today >> goal is 132 tomorrow -continue lasix but changed to po for greater likelihood of his taking it and K 20 mEq daily -continue 1.5L FR -increased Mccarty to 30 gm bid -protein shakes do NOT count toward FR and should be encouraged -stopped lisinopril Admission and Anticipated Discharge Date Admission Date: October 22, 2022 Subjective pt agitated yesterday and attempted to leave, refusing many meds; currently psych recommends he not be allowed to leave pending medical stabili zation/formulation of after care plan; refused lasix PM yesterday; I/O incomplete; refused IV and po lasix this am though more motivated to take when I tell him fixing low Na is what gets him medical clearance to go; thirsty; not understanding that coffee counts toward FR; does tell me he's noted more balance challenges past few weeks Review of Systems Review of Systems: All systems reviewed & are unremarkable except as noted in Subjective Physical Exam Constitutional: well developed, well nourished and cooperative; no acute distress Eyes: EOM intact bilaterally ENMT: Ears: no external ear abnormality Nose: no external nose abnormality Mouth: + dry oral mucous membranes Neck: no nuchal rigidity Respiratory: normal respiratory effort Auscultation: + diminished lung sounds Cardiovascular: RRR, no murmur, no edema Gastrointestinal (Abdomen): Inspection/Auscultation: normal bowel sounds Percussion/Palpation: abdomen soft; abdomen nontender Musculoskeletal: Extremities: strength 5/5 throughout Skin: no rashes, warm and dry Neurologic: restless/can't stay still for long christine limbs Psychiatric: Orientation: oriented x 3 Affect: + flat affect and + irritable affect Results & Data ([facility]) Vital Signs (Past 12 Hours) Vital Signs Temp Pulse Resp BP Pulse Ox Pulse Ox O2 Del Method 10/26/22 07:07 36.4 C L 55 L 16 125/73 90 Room Air 10/26/22 04:15 36.6 C 60 18 148/73 H 95 Room Air 10/26/22 00:59 95 10/25/22 23:13 Room Air 10/25/22 22:21 36.5 C 62 18 142/78 H 93 Room Air 10/25/22 20:12 93 H 18 96 Room Air O2 Del Method 10/26/22 07:07 10/26/22 04:15 10/26/22 00:59 Room Air 10/25/22 23:13 10/25/22 22:21 10/25/22 20:12 Laboratory Results 10/23/22 05:13 10/26/22 05:59 Diagnostic Findings cxr emphysema
[2022-10-26] MEDS: ATORVASTATIN 20 MG TAB PO SCH (08:42)
[2022-10-26] MEDS: amLODIPine BESYLATE 5 MG TAB PO SCH (08:42)
[2022-10-26] MEDS: PROPRANOLOL HCL 20 MG TAB PO SCH ×2 (08:42→20:25)
[2022-10-26] MEDS: POTASSIUM CHLORIDE CRTAB 20 MEQ TABCR PO SCH ×2 (08:42→20:25)
[2022-10-26] MEDS: FUROSEMIDE 40 MG/4 ML VIAL IV SCH (08:45)
[2022-10-26] MEDS: ASPIRIN 81 MG ECTAB PO SCH (08:45)
[2022-10-26] MEDS: ENOXAPARIN INJ 40 MG/0.4 ML SYR SQ SCH (08:45)
[2022-10-26] MEDS: UREA (UREA-NA) 15 GM PACK PO SCH ×2 (10:37→20:25)
[2022-10-26] MEDS: FUROSEMIDE 80 MG TAB PO SCH ×2 (10:41→17:38)
--- NOTE | 2022-10-26 17:09 | Hospitalist Progress Note ---
Date of Service October 26, 2022 Assessment & Plan (1) Hyponatremia: Plan: Status post fall, alcohol intoxication History of psychosis, schizophrenia --Patient not adherent to medications and left [facility] facility AGAINST MEDICAL ADVICE [place], status post fall Brought in by the police CT head: Old small infarct within the left basal ganglia and left parietal periventricular white matter. 1. No acute infarct or intracranial hemorrhage. 2. Left posterior scalp swelling Cervical spine CT:IMPRESSION: No fractures within the cervical spine. Chest x-ray: 1. Slight blunting of the left costophrenic angle. This could be due to atelectasis or a trace left pleural effusion. Mild airspace opacity could appear similar. Radiographic follow up is recommended. 2. Emphysema. Echocardiogram: Showing grade 1 diastolic dysfunction, no valvular defects noted -- Psychiatry service consulted: still declining to take his usual Fluoxetine Haldol IM 1 dose 10/24, then repeat after 72 hours 302 petition had been filed by [facility] on admission. Needs final assessment by psychiatry once patient is medically stable (once sodium has normalized) Hyponatremia --Likely secondary to alcohol use, poor oral intake. 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 -- not on aspirin, Lipitor previously --> started here COPD -- Not in exacerbation -- CXR: Emphysema without acute process. Prediabetes -- hemoglobin A1c of 5.8 from 2021 Ongoing tobacco abuse DVT prophylaxis. Lovenox subcu ordered although patient has been declining Full code Disposition--Patient is from [facility] but he doesn't want to return. Once medically stable, will need final psychiatry assessment to determine if 302 should be upheld. He has a [address] and is NOT allowed to leave AMA at this time. Admission and Anticipated Discharge Date Admission Date: October 22, 2022 Subjective Patient refused his lasix this morning, thought it was a psych medication--when it was explained to him the purpose of the lasix, he was agreeable to taking it Feels safe Per nurse, he has been calm so far today Denies visual or auditory hallucinations Physical Exam Physical Exam: No acute distress, non toxic Respiratory: Breathing comfortably on room air, no wheezing/rhonchi/rales Cardiovascular: regular rate and rhythm, no murmurs/rubs/gallops Gastrointestinal (Abdomen): soft, non tender, non distended Musculoskeletal: no edema Neurologic: awake, alert, spontaneously moving extremities Psychiatric: calm, answering simple questions appropriately Results & Data Results & Data ([facility]) Vital Signs (Past 12 Hours) Vital Signs Temp Pulse Resp BP Pulse Ox O2 Del Method 10/26/22 16:07 36.5 C 60 16 128/80 96 Room Air 10/26/22 11:21 36.8 C 53 L 16 110/67 93 Room Air 10/26/22 07:07 36.4 C L 55 L 16 125/73 90 Room Air
--- NOTE | 2022-10-26 18:04 | Communication Note ---
Date of Service: October 26, 2022 Interval History: Pt has remained [id number] cooperative. He's been observed muttering to himself (which is reported to be longstanding behavior) but I do not observe that on my exam. He has changed his plan and now intends to return to the long term he'd earlier been rejecting, saying "it's safer" than living on the streets. On approach, pt greets me by name and observes the usual social niceties ("how are you?", etc.) He fusses a bit about the fluid restrictions he's subject to but expresses understanding of the reason. He happily notes that his "blood pressure is better". Discussed plan of second haloperidol decanoate injection tomorrow (since max single dose is 100 mg and shortest interval is 3 days). Impression: 72 y/o man with schizophrenia who, according to staff members who've known him for years, is currently doing better than usual. He does not meet criteria for emergency involuntary psychiatric admission. Recommendations: * haloperidol decanoate 100 mg IM via Z-track injection tomorrow (at your previous request, I've ordered that) * The patients 302 warrant has been dispositioned as on exam, the patient is n ot in need of emergency treatment because he is not presenting dangerous symptoms of a mental disorder. They are no longer requiring 1-on-1 for psychiatric hold; the attending hospitalist was notified to make a determination of ongoing need for an aide for safety. If the patient attempts to leave AMA, they have the capacity to leave.
[2022-10-26] MEDS: PANTOprazole 40 MG TAB PO SCH (20:25)
[2022-10-26] MEDS: LORazepam 0.5 MG TAB PO PRN (20:27)
[2022-10-26] MEDS: MELATONIN 3 MG TAB PO PRN (20:27)
[2022-10-27] MEDS ORDERED: HALOPERIDOL DECANOATE INJ 50 MG/ML VIAL IM ONE (06:00)
[2022-10-27 07:35] LABS: BUN Creatinine Ratio 39.4 (10-20); Calcium 9.7 mg/dl (8.5-10.1); Creatinine Clr Calc Pharmacy 43.7 ml/min; Est GFR (African American) 51.4 ml/min; Est GFR (Non-African American) 44.4 ml/min; Potassium 4.2 mmol/L (3.5-5.1)
[2022-10-27] MEDS: PROPRANOLOL HCL 20 MG TAB PO SCH ×2 (08:53→21:35)
[2022-10-27] MEDS: POTASSIUM CHLORIDE CRTAB 20 MEQ TABCR PO SCH (08:53)
[2022-10-27] MEDS: ATORVASTATIN 20 MG TAB PO SCH (08:53)
[2022-10-27] MEDS: ASPIRIN 81 MG ECTAB PO SCH (08:53)
[2022-10-27] MEDS: amLODIPine BESYLATE 5 MG TAB PO SCH (08:53)
[2022-10-27] MEDS: ENOXAPARIN INJ 40 MG/0.4 ML SYR SQ SCH (08:54)
[2022-10-27] MEDS: FUROSEMIDE 40 MG TAB PO SCH ×2 (08:54→17:48)
[2022-10-27] MEDS: UREA (UREA-NA) 15 GM PACK PO SCH ×2 (08:54→21:35)
--- NOTE | 2022-10-27 09:15 | Nephrology Progress Note ---
Date of Service October 27, 2022 Assessment & Plan (1) Hyponatremia: Plan: Patient admitted with serum sodium 124 in setting of alcohol use on October 22 midday. His measured serum osmolality was 305 mOsm. Calculated osmolality of 380. Patient also had Ethyl alcohol level of 183.5 mg/dL on admission. Admission impression was that the patient's low sodium level due to the high level of Ethyl alcohol in the serum> however hyponatremia has persisted now for > 48 hours after EtOH cleared. sodium did not improve as expected with clearance of the alcohol. euvolemic hyponatremia > suspect med/nutrition/structural lung disease driven. Creatinine worsening with addition of Lasix from baseline of 1.1->>1.6 this morning sNa 127 today >> goal is 133 tomorrow though we are moving quite slowly -continue lasix but changed to lower p.o. dose as below po -Hypertension has been well controlled past 24 hours and will add salt tablets today -continue 1.5L FR; importance of FR reinforced -Continue increased Mccarty to 30 gm bid -protein shakes do NOT count toward FR and should be encouraged (2) Acute renal failure: Plan: Baseline creatinine 1.1. Now 1.6 on October 27 in the wake of adding Lasix to control hyponatremia Lowered Lasix dosing to 40 mg twice daily orally second dose with supper Daily basic metabolic panel Certain degree of renal dysfunction acceptable if this is what is needed to control sodium levels; we can follow as an outpatient Lowered potassium supplementation with lower Lasix dosing Continue to hold lisinopril -no indication yet for UA or/and renal imaging but low threshold to consider Admission and Anticipated Discharge Date Admission Date: October 22, 2022 Subjective no interval events; refused one of 2 lasix doses yesterday po. feels balance a bit better. no dyspnea. Review of Systems Review of Systems: All systems reviewed & are unremarkable except as noted in Subjective Physical Exam Constitutional: well developed, well nourished and cooperative; no acute distress Eyes: EOM intact bilaterally ENMT: Ears: no external ear abnormality Nose: no external nose abnormality Mouth: + dry oral mucous membranes Neck: no nuchal rigidity Respiratory: normal respiratory effort Auscultation: + diminished lung sounds Cardiovascular: RRR, no murmur, no edema Gastrointestinal (Abdomen): Inspection/Auscultation: normal bowel sounds Percussion/Palpation: abdomen soft; abdomen nontender Musculoskeletal: Extremities: strength 5/5 throughout Skin: no rashes, warm and dry Neurologic: odd movement/mannerisms Psychiatric: Orientation: oriented x 3 Affect: + flat affect and + irritable affect Results & Data ([place]) Vital Signs (Past 12 Hours) Vital Signs Temp Pulse Resp BP Pulse Ox O2 Del Method 10/27/22 03:07 36.4 C L 57 L 18 106/67 92 Room Air 10/26/22 22:51 36.6 C 58 L 18 118/70 95 Room Air Laboratory Results 10/23/22 05:13 10/27/22 06:21
[2022-10-27] MEDS: SODIUM CHLORIDE 1 GM TABLET PO SCH ×3 (10:49→21:35)
--- NOTE | 2022-10-27 18:13 | Hospitalist Progress Note ---
Date of Service October 27, 2022 Assessment & Plan (1) Hyponatremia: Plan: Status post fall, alcohol intoxication History of psychosis, schizophrenia --Patient not adherent to medications and left [facility] facility Found [place], status post fall Brought in by the police CT head: Old small infarct within the left basal ganglia and left parietal periventricular white matter. 1. No acute infarct or intracranial hemorrhage. 2. Left posterior scalp swelling Cervical spine CT:IMPRESSION: No fractures within the cervical spine. Chest x-ray: 1. Slight blunting of the left costophrenic angle. This could be due to atelectasis or a trace left pleural effusion. Mild airspace opacity could appear similar. Radiographic follow up is recommended. 2. Emphysema. Echocardiogram: Showing grade 1 diastolic dysfunction, no valvular defects noted -- Psychiatry service consulted: still declining to take his usual Fluoxetine Haldol IM 1 dose 10/24, then repeat after 72 hours 302 petition had been filed by [facility] on admission. Patient does not need IP psychiatry, 302 is not upheld Hyponatremia --Likely secondary to alcohol use, poor oral intake. 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 -- not on aspirin, Lipitor previously --> started here COPD -- Not in exacerbation -- CXR: Emphysema without acute process. Prediabetes -- hemoglobin A1c of 5.8 from 2021 Ongoing tobacco abuse DVT prophylaxis. Lovenox subcu ordered although patient has been declining Full code Disposition--Patient is from [facility], return when Na has normalized. Hopefully tomorrow Admission and Anticipated Discharge Date Admission Date: October 22, 2022 Subjective No events overnight Patient feels well. He feels safe. He is agreeable to return to [facility] Physical Exam Physical Exam: Laying in bed, no acute distress, non toxic Respiratory: Breathing comfortably on room air, no wheezing/rhonchi/rales Cardiovascular: Regular rate and rhythm, no murmurs/rubs/gallops Gastrointestinal (Abdomen): soft, non tender Musculoskeletal: No edema Neurologic: awake, alert, spontaneously moving extremities Psychiatric: Calm, speech linear, non pressured Results & Data Results & Data ([facility]) Vital Signs (Past 12 Hours) Vital Signs Temp Pulse Resp BP Pulse Ox O2 Del Method 10/27/22 15:28 36.8 C 63 18 101/64 92 Room Air
[2022-10-27] MEDS: PANTOprazole 40 MG TAB PO SCH (21:35)
[2022-10-27] MEDS: LORazepam 0.5 MG TAB PO PRN (21:46)
[2022-10-27] MEDS: MELATONIN 3 MG TAB PO PRN (21:46)
[2022-10-28 07:39] LABS: BUN Creatinine Ratio 52.9 (10-20); Calcium 10.3 mg/dl (8.5-10.1); Creatinine Clr Calc Pharmacy 32.6 ml/min; Est GFR (Non-African American) 31.1 ml/min; Potassium 4.2 mmol/L (3.5-5.1)
[2022-10-28] MEDS: UREA (UREA-NA) 15 GM PACK PO SCH ×2 (08:30→20:32)
[2022-10-28] MEDS: PROPRANOLOL HCL 20 MG TAB PO SCH (08:31)
[2022-10-28] MEDS: ENOXAPARIN INJ 40 MG/0.4 ML SYR SQ SCH (08:31)
[2022-10-28] MEDS: POTASSIUM CHLORIDE CRTAB 20 MEQ TABCR PO SCH (08:31)
[2022-10-28] MEDS: ASPIRIN 81 MG ECTAB PO SCH (08:32)
[2022-10-28] MEDS: SODIUM CHLORIDE 1 GM TABLET PO SCH ×3 (08:32→20:32)
[2022-10-28] MEDS: ATORVASTATIN 20 MG TAB PO SCH (08:32)
[2022-10-28] MEDS: amLODIPine BESYLATE 5 MG TAB PO SCH (08:33)
[2022-10-28] MEDS ORDERED: LACTATED RINGER'S 1,000 ML IV SCH (11:15)
--- NOTE | 2022-10-28 11:19 | Nephrology Progress Note ---
Date of Service October 28, 2022 Assessment & Plan (1) Hyponatremia: Plan: Patient admitted with serum sodium 124 in setting of alcohol use on October 22 midday. His measured serum osmolality was 305 mOsm. Calculated osmolality of 380. Patient also had Ethyl alcohol level of 183.5 mg/dL on admission. Admission impression was that the patient's low sodium level due to the high level of Ethyl alcohol in the serum> however hyponatremia has persisted now for > 48 hours after EtOH cleared. sodium did not improve as expected with clearance of the alcohol. euvolemic hyponatremia > suspect med/nutrition/structural lung disease driven. Creatinine worsening with addition of Lasix from baseline of 1.1->>1.6 this morning sNa 130 today. -We will give Plasma-Lyte at 80 mL/h for 1 L due to worsening JEREMY -Hypertension has been well controlled past 24 hours and will add salt tablets today -continue 1.5L FR; importance of FR reinforced -Reduce Mccarty to 15 gm bid -protein shakes do NOT count toward FR and should be encouraged (2) Acute renal failure: Plan: Baseline creatinine 1.1. Now 2 on October 27 in the wake of adding Lasix to control hyponatremia Patient is off Lasix now. -We will give Plasma-Lyte as above -no indication yet for UA or/and renal imaging but low threshold to consider Admission and Anticipated Discharge Date Admission Date: October 22, 2022 Subjective Seen for hyponatremia and acute kidney injury. He is complaining of thirst. No shortness of breath. Review of Systems Review of Systems: All other systems were reviewed and negative except as noted in HPI Physical Exam Physical Exam: General exam: Appears comfortable, no acute distress HEENT: Pupils are equal and reactive to light Neck: No JVD, neck is supple trachea is midline Respiratory system: Clear breath sounds bilaterally. Gastrointestinal: Abdomen is soft, non distended, non tender, bowel sounds are present CVS: Regular rate and rhythm. No murmurs, rubs or gallops Musculoskeletal: No joint or muscle tenderness Extremities: Non tender, no edema, peripheral pulses are present Neuro: Oriented, no tremors, no focal neurological deficits Skin: No rashes Results & Data ([facility]) Vital Signs (Past 12 Hours) Vital Signs Temp Pulse Resp BP Pulse Ox O2 Del Method 10/28/22 07:20 36.5 C 62 18 93/61 L 92 Room Air 10/28/22 04:46 Room Air 10/28/22 04:35 36.3 C L 60 18 116/77 93 Room Air Laboratory Results 10/28/22 06:17
--- NOTE | 2022-10-28 19:48 | Hospitalist Progress Note ---
Date of Service October 28, 2022 Assessment & Plan (1) Hyponatremia: Plan: Status post fall, alcohol intoxication History of psychosis, schizophrenia --Patient not adherent to medications and left [facility] facility Found [place], status post fall Brought in by the police CT head: Old small infarct within the left basal ganglia and left parietal periventricular white matter. 1. No acute infarct or intracranial hemorrhage. 2. Left posterior scalp swelling Cervical spine CT:IMPRESSION: No fractures within the cervical spine. Chest x-ray: 1. Slight blunting of the left costophrenic angle. This could be due to atelectasis or a trace left pleural effusion. Mild airspace opacity could appear similar. Radiographic follow up is recommended. 2. Emphysema. Echocardiogram: Showing grade 1 diastolic dysfunction, no valvular defects noted -- Psychiatry service consulted: still declining to take his usual Fluoxetine Haldol IM 1 dose 10/24, then repeat after 72 hours 302 petition had been filed by [facility] on admission. Patient does not need IP psychiatry, 302 is not upheld Hyponatremia --Likely secondary to alcohol use, poor oral intake. 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 Now discontinued. LR ordered but patient refused Hypertension -- Not adherent to medications --BP better controlled History of NSVT -- Continue propranolol History of CVA CT head: Old small infarct within the left basal ganglia and left parietal periventricular white matter. -- not on aspirin, Lipitor previously --> started here COPD -- Not in exacerbation -- CXR: Emphysema without acute process. Prediabetes -- hemoglobin A1c of 5.8 from 2021 Ongoing tobacco abuse DVT prophylaxis. Lovenox subcu ordered although patient has been declining Full code Disposition--Patient is from [facility], return when medically stable Admission and Anticipated Discharge Date Admission Date: October 22, 2022 Subjective Refused IV fluids. Requesting coffee No other complaints currently Tolerating diet, denies constipation Physical Exam Physical Exam: Laying in bed, appears disheveled, no acute distress Respiratory: breathing comfortably on room air, no wheezing/rhonchi Cardiovascular: regular rate and rhythm, no murmurs/rubs/gallops Gastrointestinal (Abdomen): soft, non tender Musculoskeletal: No edema Neurologic: awake, alert Psychiatric: calm Results & Data Results & Data ([facility]) Vital Signs (Past 12 Hours) Vital Signs Temp Pulse Resp BP Pulse Ox O2 Del Method 10/28/22 15:27 36.7 C 69 16 102/65 93 Room Air 10/28/22 12:00 36.7 C 81 16 141/91 H 94 Room Air
[2022-10-28] MEDS: PANTOprazole 40 MG TAB PO SCH (20:32)
[2022-10-28] MEDS: LORazepam 0.5 MG TAB PO PRN (20:40)
[2022-10-28] MEDS: MELATONIN 3 MG TAB PO PRN (20:40)
[2022-10-29] MEDS: POTASSIUM CHLORIDE CRTAB 20 MEQ TABCR PO SCH (07:53)
[2022-10-29] MEDS: ATORVASTATIN 20 MG TAB PO SCH (07:53)
[2022-10-29] MEDS: ASPIRIN 81 MG ECTAB PO SCH (07:54)
[2022-10-29] MEDS: SODIUM CHLORIDE 1 GM TABLET PO SCH ×3 (07:54→20:05)
[2022-10-29] MEDS: ENOXAPARIN INJ 40 MG/0.4 ML SYR SQ SCH (07:55)
[2022-10-29] MEDS: UREA (UREA-NA) 15 GM PACK PO SCH ×2 (07:55→20:05)
[2022-10-29 09:01] LABS: Calcium 10.2 mg/dl (8.5-10.1); Potassium 4.6 mmol/L (3.5-5.1)
[2022-10-29 09:06] LABS: BUN Creatinine Ratio 54.6 (10-20); Creatinine Clr Calc Pharmacy 38.9 ml/min; Est GFR (African American) 44.7 ml/min; Est GFR (Non-African American) 38.6 ml/min
--- NOTE | 2022-10-29 10:54 | Nephrology Progress Note ---
Date of Service October 29, 2022 Assessment & Plan (1) Hyponatremia: Plan: Patient admitted with serum sodium 124 in setting of alcohol use on October 22 midday. His measured serum osmolality was 305 mOsm. Calculated osmolality of 380. Patient also had Ethyl alcohol level of 183.5 mg/dL on admission. Admission impression was that the patient's low sodium level due to the high level of Ethyl alcohol in the serum> however hyponatremia has persisted now for > 48 hours after EtOH cleared. sodium did not improve as expected with clearance of the alcohol. euvolemic hyponatremia > suspect med/nutrition/structural lung disease driven. Creatinine worsening with addition of Lasix from baseline of 1.1->>1.6 this morning sNa 133 today. -will continue salt tablets today -continue 1.5L FR; importance of FR reinforced -Reduced Mccarty 15 gm bid -protein shakes do NOT count toward FR and should be encouraged (2) Acute renal failure: Plan: Baseline creatinine 1.1. Now 1.7 downtrending from 2 yesterday Patient is off Lasix now. -We will continue to monitor with daily BMP. Patient refused IV fluids. Admission and Anticipated Discharge Date Admission Date: October 22, 2022 Subjective Seen for hyponatremia and JEREMY. No new complaints. Patient refused IV fluids yesterday. Sodium improving to 133 this morning Review of Systems Review of Systems: All other systems were reviewed and negative except as noted in HPI Physical Exam Physical Exam: General exam: Appears comfortable, no acute distress HEENT: Pupils are equal and reactive to light Neck: No JVD, neck is supple trachea is midline Respiratory system: Clear breath sounds bilaterally. Gastrointestinal: Abdomen is soft, non distended, non tender, bowel sounds are present CVS: Regular rate and rhythm. No murmurs, rubs or gallops Musculoskeletal: No joint or muscle tenderness Extremities: Non tender, no edema, peripheral pulses are present Neuro: Oriented, no tremors, no focal neurological deficits Skin: No rashes Results & Data ([facility]) Vital Signs (Past 12 Hours) Vital Signs Temp Pulse Resp BP BP Pulse Ox Pulse Ox 10/29/22 08:08 36.4 C L 66 18 109/73 92 10/29/22 01:00 93 10/29/22 02:23 36.3 C L 67 16 114/71 93 10/29/22 00:20 03/03/23 23:36 36.4 C L 71 20 99/64 L 92 O2 Del Method O2 Del Method 10/29/22 08:08 Room Air 10/29/22 01:00 Room Air 10/29/22 02:23 Room Air 10/29/22 00:20 Room Air 10/28/22 23:36 Room Air Laboratory Results 10/29/22 05:54
--- NOTE | 2022-10-29 18:20 | Hospitalist Progress Note ---
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 1. No acute infarct or intracranial hemorrhage. 2. Left posterior scalp swelling Cervical spine CT:IMPRESSION: No fractures within the cervical spine. Chest x-ray: 1. Slight blunting of the left costophrenic angle. This could be due to atelectasis or a trace left pleural effusion. Mild airspace opacity could appear similar. Radiographic follow up is recommended. 2. Emphysema. Echocardiogram: Showing grade 1 diastolic dysfunction, no valvular defects noted -- Psychiatry service consulted: still declining to take his usual Fluoxetine Haldol IM 1 dose 10/24, then repeat after 72 hours 302 petition had been filed by [facility] on admission. Patient does not need IP psychiatry, 302 is not upheld Hyponatremia --Likely secondary to alcohol use, poor oral intake. 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 Currently on sodium chloride and urea tablets. Na improved to 133 JEREMY -due to lasix. Now discontinued. LR ordered but patient refused. Cr improved Hypertension -- Not adherent to medications --BP better controlled History of NSVT -- Continue propranolol History of CVA CT head: Old small infarct within the left basal ganglia and left parietal periventricular white matter. -- not on aspirin, Lipitor previously --> started here COPD -- Not in exacerbation -- CXR: Emphysema without acute process. Prediabetes -- hemoglobin A1c of 5.8 from 2021 Ongoing tobacco abuse DVT prophylaxis. Lovenox subcu ordered although patient has been declining Full code Disposition--Patient is from [facility], return when medically stable, hopefully Monday Admission and Anticipated Discharge Date Admission Date: October 22, 2022 Subjective Refused IV fluids yesterday. No complaints currently. Again asking for coffee Physical Exam Physical Exam: Appears disheveled, no acute distress, calm Respiratory: Breathing comfortable on room air, no wheezing/rhonchi Cardiovascular: Regular rate and rhythm, no murmurs/rubs Gastrointestinal (Abdomen): Soft , non tender, non distended Musculoskeletal: No edema Neurologic: awake, alert, spontaneously moving extremities Psychiatric: calm Results & Data Results & Data ([facility]) Vital Signs (Past 12 Hours) Vital Signs Temp Pulse Resp BP Pulse Ox O2 Del Method 10/29/22 15:51 36.3 C L 70 18 118/76 98 Room Air 10/29/22 11:26 36.5 C 80 18 103/68 94 Room Air 10/29/22 08:08 36.4 C L 66 18 109/73 92 Room Air
[2022-10-29] MEDS: PANTOprazole 40 MG TAB PO SCH (20:05)
[2022-10-29] MEDS: LORazepam 0.5 MG TAB PO PRN (23:24)
[2022-10-29] MEDS: MELATONIN 3 MG TAB PO PRN (23:24)
[2022-10-30] MEDS: ASPIRIN 81 MG ECTAB PO SCH (07:32)
[2022-10-30] MEDS: SODIUM CHLORIDE 1 GM TABLET PO SCH ×3 (07:32→19:44)
[2022-10-30] MEDS: UREA (UREA-NA) 15 GM PACK PO SCH ×2 (07:33→19:44)
[2022-10-30] MEDS: ENOXAPARIN INJ 40 MG/0.4 ML SYR SQ SCH (07:33)
[2022-10-30] MEDS: ATORVASTATIN 20 MG TAB PO SCH (07:33)
[2022-10-30 14:24] LABS: BUN Creatinine Ratio 43.8 (10-20); Calcium 9.5 mg/dl (8.5-10.1); Creatinine Clr Calc Pharmacy 47.1 ml/min; Est GFR (African American) 56.2 ml/min; Est GFR (Non-African American) 48.5 ml/min; Potassium 4.6 mmol/L (3.5-5.1)
[2022-10-30] MEDS ORDERED: ALUMINUM/MAGNESIUM SUSP 30 ML UDC PO PRN (15:00)
--- NOTE | 2022-10-30 15:51 | Hospitalist Progress Note ---
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 1. No acute infarct or intracranial hemorrhage. 2. Left posterior scalp swelling Cervical spine CT:IMPRESSION: No fractures within the cervical spine. Chest x-ray: 1. Slight blunting of the left costophrenic angle. This could be due to atelectasis or a trace left pleural effusion. Mild airspace opacity could appear similar. Radiographic follow up is recommended. 2. Emphysema. Echocardiogram: Showing grade 1 diastolic dysfunction, no valvular defects noted -- Psychiatry service consulted: still declining to take his usual Fluoxetine Haldol IM 1 dose 10/24, then repeat after 72 hours 302 petition had been filed by [facility] on admission. Patient does not need IP psychiatry, 302 is not upheld Hyponatremia --Likely secondary to alcohol use, poor oral intake. 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 Currently on sodium chloride and urea tablets. Na improved further to 135 JEREMY -due to lasix. Now discontinued. LR ordered but patient refused. Cr improved further to 1.4 Patient is eating and drinking Hypertension -- Not adherent to medications --BP somewhat labile History of NSVT -- Continue propranolol (this was held previously like for low BP, BP currently elevated, will resume) History of CVA CT head: Old small infarct within the left basal ganglia and left parietal periventricular white matter. -- not on aspirin, Lipitor previously --> started here COPD -- Not in exacerbation -- CXR: Emphysema without acute process. Prediabetes -- hemoglobin A1c of 5.8 from 2021 Ongoing tobacco abuse DVT prophylaxis. Lovenox subcu ordered although patient has been declining Full code Disposition--Patient is from [facility], he is agreeable to returning. Plan to discharge tomorrow Admission and Anticipated Discharge Date Admission Date: October 22, 2022 Subjective Initially refused morning labs then agreed No issues overnight Took his medications. Does not want to be restarted on fluoxetine because it makes him feel woozy (he is agreeable to continuing his monthly haldol injections) Physical Exam Physical Exam: Laying in bed, appears disheveled, no acute distress Respiratory: breathing comfortably on room air, no wheezing/rhonchi/rales Cardiovascular: regular rate and rhythm, no murmurs/rubs Gastrointestinal (Abdomen): soft, non tender Musculoskeletal: No edema, no cyanosis Neurologic: sleeping, easily arousable, spontaneously moving extremities Psychiatric: calm, answers questions appropriately Results & Data Results & Data ([facility]) Vital Signs (Past 12 Hours) Vital Signs Temp Pulse Resp BP Pulse Ox O2 Del Method 10/30/22 15:28 37.1 C 82 18 173/90 H 95 Room Air 10/30/22 11:30 36.3 C L 96 H 18 122/81 96 Room Air 10/30/22 07:38 36.9 C 67 16 103/66 91 Room Air
[2022-10-30] MEDS: PROPRANOLOL HCL 20 MG TAB PO SCH (20:08)
[2022-10-30] MEDS: MELATONIN 3 MG TAB PO PRN (20:58)
[2022-10-30] MEDS: LORazepam 0.5 MG TAB PO PRN (20:58)
[2022-10-31] MEDS ORDERED: PANTOprazole 40 MG TAB PO SCH (06:30)
[2022-10-31 07:32] LABS: BUN Creatinine Ratio 39.4 (10-20); Calcium 9.3 mg/dl (8.5-10.1); Creatinine Clr Calc Pharmacy 51.3 ml/min; Est GFR (African American) 62.5 ml/min; Est GFR (Non-African American) 53.9 ml/min; Potassium 4.5 mmol/L (3.5-5.1)
[2022-10-31] MEDS: ASPIRIN 81 MG ECTAB PO SCH (08:10)
[2022-10-31] MEDS: ATORVASTATIN 20 MG TAB PO SCH (08:10)
[2022-10-31] MEDS: PROPRANOLOL HCL 20 MG TAB PO SCH (08:10)
[2022-10-31] MEDS: ENOXAPARIN INJ 40 MG/0.4 ML SYR SQ SCH (08:10)
[2022-10-31] MEDS: UREA (UREA-NA) 15 GM PACK PO SCH (08:11)
[2022-10-31] MEDS: SODIUM CHLORIDE 1 GM TABLET PO SCH (08:11)
--- NOTE | 2022-10-31 11:04 | Nephrology Progress Note ---
Date of Service October 31, 2022 Assessment & Plan (1) Hyponatremia: Plan: Patient admitted with serum sodium 124 in setting of alcohol use on October 22 midday. His measured serum osmolality was 305 mOsm. Calculated osmolality of 380. Patient also had Ethyl alcohol level of 183.5 mg/dL on admission. Admission impression was that the patient's low sodium level due to the high level of Ethyl alcohol in the serum> however hyponatremia has persisted now for > 48 hours after EtOH cleared. sodium did not improve as expected with clearance of the alcohol. euvolemic hyponatremia > suspect med/nutrition/structural lung disease driven. Creatinine worsened with addition of Lasix from baseline of 1.1->>1.3 this morning sNa 135 today. From renal standpoint patient can be discharged on salt tablets and fluid restriction. -will continue salt tablets today -continue 1.5L FR; importance of FR reinforced -protein shakes do NOT count toward FR and should be encouraged (2) Acute renal failure: Plan: Baseline creatinine 1.1. Now 1.3 which is close to baseline Admission and Anticipated Discharge Date Admission Date: October 22, 2022 Subjective Seen for JEREMY and hyponatremia. He feels better today. Sodium remains stable. No shortness of breath. Patient is committed to quit drinking alcohol Review of Systems Review of Systems: All other systems were reviewed and negative except as noted in HPI Physical Exam Physical Exam: General exam: Appears comfortable, no acute distress HEENT: Pupils are equal and reactive to light Neck: No JVD, neck is supple trachea is midline Respiratory system: Clear breath sounds bilaterally. Gastrointestinal: Abdomen is soft, non distended, non tender, bowel sounds are present CVS: Regular rate and rhythm. No murmurs, rubs or gallops Musculoskeletal: No joint or muscle tenderness Extremities: Non tender, no edema, peripheral pulses are present Neuro: Oriented, no tremors, no focal neurological deficits Skin: No rashes Results & Data ([facility]) Vital Signs (Past 12 Hours) Vital Signs Temp Pulse Resp BP Pulse Ox O2 Del Method O2 Del Method 10/31/22 08:27 36.4 C L 59 L 18 124/78 95 Room Air 10/31/22 01:00 Room Air 10/30/22 23:09 36.8 C 59 L 16 132/79 93 Room Air Laboratory Results 10/31/22 05:44
--- NOTE | 2022-10-31 13:35 | Discharge Summary ---
Date of Service October 31, 2022 Admission HPI Per Admitting Provider History obtained from patient and records. Medical history significant for hypertension, NSVT, COPD, prediabetes, childhood leukemia status post treatment, schizophrenia, mood disorder, ongoing tobacco abuse. Recent confinement last month under Psychiatry service for psychosis. Patient discharged back to [facility] residence where patient had been staying since last year. 2 weeks ago, patient noted to be restless, delusional, and disruptive at [facility]. Patient hearing voices again. Patient refused to take home BP and psych medications. This afternoon he left [facility] for good on a taxi to go downtown. Patient does not want to return to [facility] due to feeling 'constricted'. Patient denies suicidality. Patient fell outside [employer] parking garage this afternoon. Had trouble walking after he got drunk as per patient. No prior history of alcohol abuse as per records. Patient not sure if he passed out. Denies headache, chest pain, SOB. No seizures, tongue biting, incontinence symptoms. Admits to some heartburn symptoms. Patient brought to the ER for evaluation. Medical History as above Surgical History : Dental surgery Family History : Hypertension Personal/Social history : 2 packs daily, occasional EtOH intake, disabled Principal Diagnosis Acute alcohol intoxication Hyponatremia-- multifactorial: SiADH and beer potomania JEREMY Schizophrenia Medication non compliance Discharge Exam No acute distress, pleasant and cooperative Respiratory Breathing comfortably on room air, no wheezing/rhonchi Cardiovascular Regular rate and rhythm, no murmurs/rubs Gastrointestinal (Abdomen) soft, non tender Neurologic awake, alert, spontaneously moving extremities Psychiatric Flat affect but maintains eye contact, answers questions appropriately Discharge Data Allergies Allergy/AdvReac Type Severity Reaction Status Date / Time lithium Allergy Unknown Verified 10/23/22 00:01 Consultations 10/22/22 22:31 ED Decision to Admit Stat 10/22/22 23:26 Consult Psychiatry Routine 10/23/22 08:18 Consult Nephrology Routine Ordered Studies 10/22/22 20:38 CT head/brain wo con Urgent 10/22/22 20:40 CT cervical spine wo con Urgent 10/23/22 04:04 CT abd pelvis IV con only Urgent Hospital Course (1) Hyponatremia: Plan Mr Trip Parrish is a 72 year old man with history schizophrenia (on Haldol 100mg IM Q 4 weeks, Haldol 5mg BID, and fluoxetine) who lives at [facility] was brought in by police for intoxication. About 2 weeks prior to hospitalization, he had stopped taking his medications and later took a taxi to [place] [employer] to go drinking. Upon arrival here, he was acutely intoxicated with an alcohol level of 183. In addition, his Na was 124. Because he left [facility] and was not on his medications, the facility filed a 302 petition and Mr Parrish was placed on a temporary psychiatric hold. For several days while here, he was attempting to leave but was allowed to leave [place]. He refused to be restarted on fluoxetine but was agreeable to take haldol which he received here. Once he was no longer intoxicated and his mood stabilized he was felt to not need IP psychiatry and the 302 was not upheld but he remained in the hospital due to medical reasons. For the management of his hyponatremia, he was placed on a fluid restriction, lasix and urea but his Na was slow to improve. He was eventually also started on NaCl tablets as well. With this, his Na slowly improved and at the time of discharge had normalized to 135. With fluid restriction and administration of lasix, he developed JEREMY with a peak Cr of 2 (baseline around 1-1.2) and lasix was discontinued and he was placed briefly on LR (briefly because he later refused it). With discontinuation of lasix, his renal function improved to 1.3 at time of discharge which is close to his baseline. At time of discharge, he was in stable condition and was not in a state of psychosis. He agreed to return to [facility] and has a follow up appointment with his outpatient psychiatrist for his monthly haldol injection. His medication changes at discharge are: -fluoxetine discontinued (patient refuses to be put back on) -ativan 0.5mg daily PRN for anxiety -amlodipine discontinued (BP has been normotensive) -started on aspirin 81mg and atorvastatin 20mg daily (for old stroke incidentally found on CT head) -started on protonix 40mg daily for acid reflux symptoms -started on NaCl 1gm TID for hyponatremia He needs a repeat BMP in 1week. Of note, while he was here, his sister (she is listed as his emergency contact) expressed concern about his intermittent poor decisions. It was explained to her that she may work with his outpatient psychiatrist, hospital social worker and [facility] to pursue guardianship if she so chooses. Total Time Total Time Spent Total Time Spent (In Minutes): 45 Discharge Plan Discharge Items Patient Disposition: [facility] Reason For Visit: HYPONATREMIA Discharge Diagnosis: Hyponatremia JEREMY Medical non compliance Condition on Discharge: Good Activity: Resume your previous activity Non-emergency contact: Primary Care Provider and Psychiatrist Call non-emergency contact if: you have any medication questions Follow-up/Referrals: Trip Segundo MD [Primary Care Provider] - (Date & Time 11/02/2022 10:00 AM Provider Darian Lynne PA-C Department General Internal Medicine [facility] ) Kyle Nielsen PA-C [Outside Practitioners] - 11/03/22 1:20 pm Diet: Regular Fluids: 1500ml (6 cups) Diet Comment: 1500 mL fluid restriction Addtl Attending Provider Instructions: For his schizophrenia: Follow up with psychiatry appointment for Haldol Injection (100mg IM every 4 weeks) Patient refused to be continued on Fluoxetine so this was discontinued. Patient may also continue his Haldol 5mg oral twice a day He also was started on ativan 0.5mg daily as needed for anxiety For his low sodium: He was started on Sodium chloride tablets 1 gram oral three times a day He was put on a 1.5L fluid restriction daily He needs a repeat BMP in 1 week Pending Studies at Discharge: No Stand-Alone Forms: [employer], Smoking Cessation Skilled Items Patient informed of condition?: Yes DNR: No Discharge Level of Care: Other Communicable Disease: No Discharge Prognosis: Stable Lines: None Urinary Catheter: No Medications and DC Order Prescriptions: New aspirin 81 mg Tablet,Delayed Release (Dr/Ec) 81 mg PO QAM Qty: 60 0RF atorvastatin 20 mg Tablet 20 mg PO QAM 60 Days Qty: 60 0RF lorazepam 0.5 mg Tablet 0.5 mg PO DAILY PRN (Reason: anxiety) 30 Days Qty: 30 0RF pantoprazole 40 mg Tablet,Delayed Release (Dr/Ec) 40 mg PO DAILYBB 14 Days Qty: 14 0RF sodium chloride 1,000 mg Tablet,Soluble 1,000 mg PO TID 30 Days Qty: 90 0RF Continued benztropine 0.5 mg tablet 0.5 mg PO DIRECTED haloperidol 5 mg tablet 5 mg PO BID haloperidol decanoate 100 mg/mL Solution 100 mg IM .[id number] acetaminophen [Tylenol Extra Strength] 500 mg Tablet 1,000 mg PO Q6H PRN (Reason: Pain) diphenhydramine HCl [Benadryl Allergy] 25 mg Tablet 25 mg PO BID PRN (Reason: Insomnia) propranolol 20 mg tablet 20 mg PO BID hydroxyzine HCl 10 mg tablet 10 mg PO TID cholecalciferol (vitamin D3) [Vitamin D3] 125 mcg (5,000 unit) Tablet 125 mcg PO DAILY Discontinued amlodipine 10 mg tablet 10 mg PO DAILY fluoxetine 10 mg capsule 10 mg PO DAILY Rx Instructions: Take with a 20 mg tab = 30 mg fluoxetine 20 mg capsule 20 mg PO DAILY Rx Instructions: Take with 10 mg tab Discharge Orders: Discharge Order (Routine); Ordered 10/31/22 Ordered By: Morena Almonte Admission Data Admit Date/Time: 10/22/22 23:24 Attending Provider: Morena Almonte Admit Provider: Harvey Gabriel Primary Care Provider: Trip Segundo Other Providers: Adele France ; Milana Altamirano ; Jimmy Vora ; Harvey Gabriel ; Ernestine Chan ; Olman Head Other Interventions: Discharge Summary Assessment (RN) Last Done: 10/31/22 11:46
== END 2022-10-31 12:35 | disposition home or self-care (01) | DRG 641 ==
LOC: ED 20:18 → 2E 23:24 → SUATTDRO 23:24 → 2E 10-23 00:38 → 2W 10-23 18:11

== ENCOUNTER 2023-12-10 16:26 | Inpatient (IN) ==
--- OUTSIDE RECORDS SUMMARY | 2023-12-10 16:32 | External Medical Summary | Summary of Care ---
Author Name Unknown Organization [facility] Address [address] [place] [address] Phone [phone] Care Team Providers Care Call Out Operator Name Role Phone Trip Segundo MD Primary Care Provider + Reason for Visit * Reason Comments Physical-Exam Cough Has had a cough for awhile, says it's from smoking too many cigarettes. Also having mucus production that he cannot always get up. Encounter Details Date Type Department Care Team (Latest Contact Info) Description 11/21/2023 1:00 PM EDT Office Visit General Internal Medicine [facility] [address] [facility] [place] [address] Yulissa Castro MD [address] [place] [address] Essential hypertension with goal blood pressure less than 130/80*; Benign hypertension with CKD (chronic kidney disease) stage III (HCC); Tobacco use disorder; Panlobular emphysema (HCC); Prediabetes; History of leukemia; History of CVA (cerebrovascular accident); Weight gain; Chronic paranoid schizophrenia (HCC); Encounter for long-term (current) use of medications; Gastroesophageal reflux disease without esophagitis; Screening for AAA (aortic abdominal aneurysm); Screen for colon cancer; Excessive cerumen in both ear canals Allergies Active Allergy Reactions Criticality Noted Date Comments Benztropine 11/02/2022 Severe confusion [place]mut Carbonate 10/04/2000 documented as of this encounter (statuses as of 11/21/2023) Medications Medication Sig Dispensed Refills Start Date End Date Status hydrOXYzine HCl 10 MG Oral Tablet (Atarax) 0 11/11/2021 Active Haloperidol Decanoate 100 MG/ML Intramuscular Solution Inject into a large muscle every 4 weeks . 0 Active diphenhydrAMINE HCl 50 MG Oral TabletIndications: Chronic paranoid schizophrenia (HCC) Take 1 Tablet by mouth 2 times a day as needed for Itching. 180 Tablet 3 11/02/2022 Active Acetaminophen 500 MG Oral Tablet (Tylenol) Take 2 Tablets by mouth every 8 hours as needed for Fever >38C(100.5F) or Pain, Mild. 100 Tablet 0 11/02/2022 Active Haloperidol 5 MG Oral Tablet (Haldol) Take 1 Tablet by mouth in the morning and 1 Tablet before bedtime. 0 11/02/2022 Active LORazepam 0.5 MG Oral Tablet (Ativan) Take 1 Tablet by mouth as needed. 0 Active Sodium Chloride 1 GM Oral TabletIndications: Hyponatremia Take 1 Tablet by mouth in the morning and 1 Tablet at noon and 1 Tablet in the evening. 90 Tablet 3 12/01/2022 Active Methylphenidate HCl 10 MG Oral Tablet (Ritalin) Take 1 Tablet by mouth in the morning and 1 Tablet before bedtime. 0 Active Propranolol HCl 20 MG Oral Tablet (Inderal)Indicatio ns:NSVT (nonsustained ventricular tachycardia) (HCC) Take 1 tablet by mouth twice a day. 180 Tablet 1 06/23/2023 Active Vitamin D3 125 MCG (5000 UT) Oral CapsuleIndications :Vitamin D deficiency TAKE 1 CAPSULE BY MOUTH ONCE DAILY FOR SUPPLEMENT 28 Capsule 4 07/31/2023 Active Aspirin Low Dose 81 MG Oral Tablet Chewable (aspirin) TAKE 1 TABLET BY MOUTH DAILY * HEART HEALTH* 28 Tablet 4 09/22/2023 Active Pantoprazole Sodium 40 MG Oral Tablet Delayed Release (Protonix)Indicati ons:Heartburn TAKE ONE TABLET BY MOUTH ONCE DAILY 30 MINUTES BEFORE THE FIRST MEALS FOR GERD 28 Tablet 5 10/14/2023 Active Atorvastatin Calcium 20 MG Oral Tablet (Lipitor) TAKE ONE TABLET BY MOUTH AT BEDTIME FOR CHOLESTEROL 28 Tablet 5 11/13/2023 Active FLUoxetine HCl 40 MG Oral Capsule (PROzac)Indication s:Chronic paranoid schizophrenia (HCC) Take 1 Capsule by mouth in the morning. Per psychiatry. 0 11/21/2023 Active Debrox 6.5 % Otic Solution (Carbamide Peroxide)Indicatio ns:Excessive cerumen in both ear canals Instill 5 to 10 drops twice daily for 4 days. To both ear canals; insert cotton plug. Remove plug after 15 to 30 minutes. 15 mL 1 11/21/2023 Active FLUoxetine HCl 20 MG Oral Capsule (PROzac) Take 1 Capsule by mouth in the morning. 0 Discontinue d(Medicatio n/Dose Changed) documented as of this encounter (statuses as of 11/21/2023) Active Problems Problem Noted Date Diagnosed Date Benign hypertension with CKD (chronic kidney disease) stage III 05/19/2023 History of CVA (cerebrovascular accident) 2022 Adverse effect of losartan 04/05/2022 Prediabetes 01/13/2022 Essential hypertension with goal blood pressure less than 130/80 11/28/2021 Chronic insomnia 11/16/2021 History of leukemia 12/25/2017 Overview: As a child NSVT (nonsustained ventricular tachycardia) 08/29 Panlobular emphysema 09/20/2017 Overweight (BMI 25.0-29.9) 05/23/2013 Overview: bmi= 26.63 05/23/13 Chronic paranoid schizophrenia 05/23/2013 Joint symptoms of hand 05/23/2013 Tobacco use disorder 05/23/2013 documented as of this encounter (statuses as of 11/21/2023) Resolved Problems Problem Noted Date Diagnosed Date Resolved Date Leukemia 09/22/2015 12/25/2017 Overview: As a child Special screening for malign ant neoplasm of prostate 05/23/2013 09/22/2015 Illness 03/28/2013 09/22/2015 Overview: at [facility] Dementia 09/24/2021 documented as of this encounter (statuses as of 11/21/2023) Immunizations Name Administration Dates Next Due Pneumococcal Polysaccharide PPV23 (Pneumovax) TD - Tetanus/Diptheria (ADULT) 08/24/2001 TDAP (age 11 and older)(Adacel) 10/01/2008 documented as of this encounter Social History Tobacco Use Types Packs/Day Years Used Date Smoking Tobacco: Every Day Cigarettes 2 51 Smokeless Tobacco: Never Comments:began at age 14 Alcohol Use Standard Drinks/Week Comments No 0 (1 standard drink = 0.6 oz pur e alcohol) PHQ-2 Answer Date Recorded PHQ Adult Total Score 0 04/04/2022 Sex and Gender Information Value Date Recorded Sex Assigned at Not on file Gender Identity Not on file Sexual Orientation Not on file Job Start Date Occupation Industry Not on file Not on file Not on file documented as of this encounter Last Filed Vital Signs Vital Sign Reading Time Taken Comments Blood Pressure 134/86 11/21/2023 12:58 PM EDT Pulse 62 11/21/2023 12:58 PM EDT Temperature 36.4 C (97.5 F) 11/21/2023 12:58 PM E DT Respiratory Rate - - Oxygen Saturation 99% 11/21/2023 12:58 PM EDT Inhaled Oxygen Concentration - - Weight 87.6 kg (193 lb 3.2 oz) 11/21/2023 12:58 PM EDT Height 170.2 cm (5' 7") 11/21/2023 12:58 PM EDT Body Mass Index 30.26 11/21/2023 12:58 PM EDT documented in this encounter Progress Notes * Yulissa Castro MD - 11/21/2023 1:11 PM EDT SUBJECTIVE: Trip Parrish is a 73 year old male. Chief Complaint Patient presents with Physical-Exam Cough Has had a cough for awhile, says it's from smoking too many cigarettes. Also having mucus production that he cannot always get up. HPI: Patient of Dr. Segundo presents today for appointment to have MARCOS 51 completed,was previously followed by Darian Ling. Wt Readings from Last 6 Encounters: 11/21/23 87.6 kg (193 lb 3.2 oz) 05/19/23 84.4 kg (186 lb 1.6 oz) 11/16/22 81.4 kg (179 lb 8 oz) 11/02/22 73 kg (160 lb 14.4 oz) 06/15/22 76.8 kg (169 lb 4.8 oz) 05/17/22 73.9 kg (163 lb) BP Readings from Last 6 Encounters: 11/21/23 134/86 05/19/23 128/86 11/16/22 132/82 11/02/22 118/60 06/15/22 118/70 05/17/22 136/86 Medical problems-hypertension, dyslipidemia, history of CVA, prediabetes, emphysema, continued tobacco use disorder since age 14 1 ppd, now 2 ppd x 1-2 yrs, and no inclination to quit, GERD, paranoidschizophrenia followed by psychiatrist. Meds managed here-aspirin 81 mg, atorvastatin 20 mg, propranolol 20 mg twice a day, sodium chloridetablet three times daily, Protonix 40 mg daily, vitamin-D 5000 units daily, History of chronic cough and shortness of breath, in the past has declined treatments per previous notes. 11/2015-chest e-pxo-[id number] of COPD Has audible rattle in the upper chest area with breathing, has cough, productive of occasional sputum, refuses to start inhalers or have any kind of workup done for COPD- including chest x-ray and discussed low-dose CT for lung cancer screening. No previous colonoscopy on file. - Discussed colon screening modalities, refuses. -Discussed abdominal aortic aneurysm screening, refuses Last labs reviewed as noted below Appetite is good.Weight as above No headache,URI symptoms, vision changes No neck pain/swelling, chest pain, palpitations, leg edema No nausea,vomiting,heartburn, constipation or diarrhea, blood in the stool or black stool, abdominal pain. No blood in the urine, no urinary problems. No night sweats, no unusual bleeding/bruising, and no swollen nodes. No excessive thirst Or urination . No rash, new/changing skin lesions. No joint pain or swelling. F/b psychiatry Does not have living will, advanced directive information provided Refuses all vaccines due Immunization History Administered Date(s) Administered Pneumococcal Polysaccharide PPV23 (Pneumovax) 01/13/2016 TD - Tetanus/Diptheria (ADULT) 08/24/2001 TDAP (age 11 and older)(Adacel) 10/01/2008 Hemoglobin AIC Results: Lab Results Component Value Date/Time HEMOGLOBIN A1C - [facility] 5.6 12/06/2022 09:44 AM HEMOGLOBIN A1C - [facility] 5.8 (H) 04/22/2022 09:44 AM HEMOGLOBIN A1C - [facility] 5.7 (H) 03/17/2022 08:55 AM CBC Results: Results for orders placed or performed in visit on 12/06/22 CBC Result Value Ref Range WBC 8.56 4.00 - 10.80 K/uL RBC 5.49 4.50 - 5.25 M/uL HGB 16.2 14.0 - 16.8 g/dL HCT 49.0 (H) 40.0 - 48.4 % MCV 89.3 82.0 - 99.5 fL MCH 29.5 27.0 - 34.0 pg MCHC 33.1 32.0 - 36.0 g/dL RDW 14.1 11.5 - 15.5 % PLT 277 140 - 400 K/uL MPV 10.0 6.6 - 11.1 fL nRBCs 0 <=0 /100 WBCs Component Latest Ref Rng 12/06/2022 01/11/2023 06/01/2023 BUN 6 - 20 mg/dL 17 17 17 Creatinine 0.6 - 1.2 mg/dL 1.4 (H) 1.4 (H) 1.2 Estimated Glomerular Filtration Rate >=60 mL/min 56 (L) 56 (L) 65 Sodium 135 - 146 mmol/L 133 (L) 137 137 Potassium 3.5 - 5.1 mmol/L 5.3 (H) 4.8 4.6 Chloride 98 - 107 mmol/L 98 101 100 CO2 22 - 32 mmol/L 28 26 24 Anion Gap 7 - 15 mmol/L 7 10 13 Glucose 70 - 120 mg/dL 90 103 90 Albumin 3.8 - 5.0 g/dL 4.7 AST 10 - 50 U/L 17 Alkaline Phosphatase 35 - 130 U/L 47 Bilirubin, Total <=1.2 mg/dL 0.7 Calcium 8.4 - 10.2 mg/dL 9.7 9.2 9.1 Protein 6.0 - 8.3 g/dL 6.5 ALT 10 - 50 U/L 13 Triglycerides <=174 mg/dL 116 Cholesterol <200 mg/dL 135 HDL Cholesterol >39 mg/dL 30 (L) Non-HDL Cholesterol <=159 mg/dL 105 LDL Cholesterol <=129 mg/dL 82 Hemoglobin A1C 4.0 - 5.6 % 5.6 Estimated Average Glucose <126 mg/dL 114 TSH 0.27 - 4.20 uIU/mL 1.97 T4, Free 0.9 - 1.7 ng/dL 1.2 Patient Active Problem List Diagnosis Code Overweight (BMI 25.0-29.9) E66.3 Chronic paranoid schizophrenia ([facility]) F20.0 Joint symptoms of hand R29.91 Tobacco use disorder F17.200 NSVT (nonsustained ventricular tachycardia) ([facility]) I47.29 Panlobular emphysema ([facility]) J43.1 History of leukemia Z85.6 Chronic insomnia F51.04 Essential hypertension with goal blood pressure less than 130/80 I10 Prediabetes R73.03 Adverse effect of losartan T46.5X5A History of CVA (cerebrovascular accident) Z86.73 Benign hypertension with CKD (chronic kidney disease) stage III ([facility]) I12.9, N18.30 Current Outpatient Medications Medication Sig Dispense Refill hydrOXYzine HCl 10 MG Oral Tablet (Atarax) Haloperidol Decanoate 100 MG/ML Intramuscular Solution Inject into a large muscle every 4 weeks . diphenhydrAMINE HCl 50 MG Oral Tablet Take 1 Tablet by mouth 2 times a day as needed for Itching. 180 Tablet 3 Acetaminophen 500 MG Oral Tablet (Tylenol) Take 2 Tablets by mouth every 8 hours as needed for Fever >38C(100.5F) or Pain, Mild. 100 Tablet 0 Haloperidol 5 MG Oral Tablet (Haldol) Take 1 Tablet by mouth in the morning and 1 Tablet before bedtime. LORazepam 0.5 MG Oral Tablet (Ativan) Take 1 Tablet by mouth as needed. FLUoxetine HCl 20 MG Oral Capsule (PROzac) Take 1 Capsule by mouth in the morning. Sodium Chloride 1 GM Oral Tablet Take 1 Tablet by mouth in the morning and 1 Tablet at noon and 1 Tablet in the evening. 90 Tablet 3 Methylphenidate HCl 10 MG Oral Tablet (Ritalin) Take 1 Tablet by mouth in the morning and 1 Tablet before bedtime. Propranolol HCl 20 MG Oral Tablet (Inderal) Take 1 tablet by mouth twice a day. 180 Tablet 1 Vitamin D3 125 MCG (5000 UT) Oral Capsule TAKE 1 CAPSULE BY MOUTH ONCE DAILY FOR SUPPLEMENT 28 Capsule 4 Aspirin Low Dose 81 MG Oral Tablet Chewable (aspirin) TAKE 1 TABLET BY MOUTH DAILY * HEART HEALTH* 28 Tablet 4 Pantoprazole Sodium 40 MG Oral Tablet Delayed Release (Protonix) TAKE ONE TABLET BY MOUTH ONCE DAILY 30 MINUTES BEFORE THE FIRST MEALS FOR GERD 28 Tablet 5 Atorvastatin Calcium 20 MG Oral Tablet (Lipitor) TAKE ONE TABLET BY MOUTH AT BEDTIME FOR CHOLESTEROL 28 Tablet 5 No current facility-administered medications for this visit. Review of patient's allergies indicates: Allergen Reactions Benztropine Severe confusion Shawmut Carbonate OBJECTIVE: BP 134/86 | Pulse 62 | Temp 36.4 C (97.5 F) (Tympanic) | Ht 1.702 m (5' 7") | Wt 87.6 kg (193 lb 3.2 oz) | SpO2 99% | BMI 30.26 kg/m | BSA 2.04 m PHYSICAL EXAM: General: alert, healthy, audible secretions in throat well nourished and well developed Head: Normocephalic, atraumatic Eye Exam: PERRLA, EOMI, Conjunctiva are pink and non-injected, sclera clear Ears: External ears normal, Canal clear, TM obscured by cerumen deep in canal Nose: no mucosal erythema, no mucosal edema, no purulent discharge Oropharynx: no exudate and no erythema Neck: supple, no bruits, no JVD, thyroid normal size, non-tender, without nodularity Lymph: No palpable lymphadenopathy. Heart: Regular rhythm and rate, no murmurs and no gallops Lungs: lungs clear to auscultation, ex diffuse exp wheeze lower LF Abdomen: Soft, non-tender, normal bowel sounds, no masses or organomegaly, no bruits Extremities: no edema, no clubbing, no cyanosis. Neuro Exam: alert & oriented x 3 with fluent speech, no focal motor/sensory deficits, gait normal Skin: skin color, texture, turgor are normal, no rashes ASSESSMENT/PLAN: Essential hypertension with goal blood pressure less than 130/80 (Primary) Benign hypertension with CKD (chronic kidney disease) stage III (HCC) Tobacco use disorder Panlobular emphysema (HCC) Prediabetes History of leukemia History of CVA (cerebrovascular accident) Weight gain Chronic paranoid schizophrenia (HCC) Encounter for long-term (current) use of medications - VITAMIN B12; Future; Expected date: 11/21/2023 - MAGNESIUM; Future; Expected date: 11/21/2023 Gastroesophageal reflux disease without esophagitis - VITAMIN B12; Future; Expected date: 11/21/2023 - MAGNESIUM; Future; Expected date: 11/21/2023 Screening for AAA (aortic abdominal aneurysm) Screen for colon cancer Refuses Excessive cerumen in both ear canals - Debrox 6.5 % Otic Solution (Carbamide Peroxide); Instill 5 to 10 drops twice daily for 4 days. Toboth ear canals; insert cotton plug. Remove plug after [address] current meds Form completed. Lab orders are on file for CBC, CMP lipids , A1c, vitamin-D Follow Up: Return in about 6 months (around 05/23/2024), or if symptoms worsen or fail to improve, for Labs Today. | For: Labs Today | Check-out note: ALL labs on file today 6 mth fu pcp (This note was completed using the dictation program Fluency Direct. As such, there may be misspellings, word substitutions, or other variations that should not change the essence of the clinical content of this encounter note. If there is need for further clarification, please direct questions to the provider listed above.) Patient and / caregiver verbalize understanding of above instructions and agrees with plan of care. Yulissa Castro MD 11/21/2023 documented in this encounter Nursing Notes * Marisol Acosta LPN - 11/21/2023 12:56 PM EDT Chief Complaint Patient presents with Physical-Exam Cough Has had a cough for awhile, says it's from smoking too many cigarettes. Also having mucus production that he cannot always get up. documented in this encounter Plan of Treatment Upcoming Encounters Date Type Department Care Team (Late st Contact Info) Description 06/11/2024 2:00 PM EDT [facility] [place] [address] [place] [address] Trip Segundo MD [address] [facility] [place] [id number] Pending Results Name Type Priority Associated Diagnoses Date /Time VITAMIN B12 Lab Routine Encounter for long-term (current) use of medications Gastroesophageal reflux disease without esophagitis 11/21/2023 1:45 PM EDT Scheduled Orders Name Type Priority Associated Diagnoses Orde r Schedule VITAMIN B12 Lab Routine Encounter for long-term (current) use of medications Gastroesophageal reflux disease without esophagitis Expected: 11/21/2023 (Approximate), Expires: 11/20/2024 Health Maintenance Due Date Last Done Comments DISCUSS TOBACCO CESSATION (REFER TO SMARTSET #4120) 1950 COVID-19 Vaccine (#1) 1956 CKD PHOS USE SMARTSET 74469 1969 Zoster Vaccines (1 of 2) 1970 Cologuard 1996 Colonoscopy 1996 Colorectal Cancer Screening 1996 Fecal Occult Blood Test 1996 Sigmoidoscopy 1996 LUNG CANCER SCREENING - USE SMARTSET 36613 2001 AAA Screening 2016 Pneumococcal Vaccine: 65+ Years (2 of 2 - PCV) 01/12/2017 01/13/2016 DTaP,Tdap,and Td Vaccines (2 - Td or Tdap) 10/01/2018 10/01/2008, 08/24/2001 Depression Screening 04/04/2023 04/04/2022 Influenza Vaccine (FLU shot) (#1) 2023 GFR 12/01/2023 06/01/2023, 12/26, 12/06/2022, Additional history exists CKD HGB USE SMARTSET 10455 12/07/202312/06, 12/06/2022, 05/17/2022, Additional history exists HbA1c 12/07/2023 12/06/2022, 03/29, 03/17/2022, Additional history exists Albumin/Creatinine Ratio 06/01/2024 06/01/2023, 12/26 O2 ASSESSMENT COMPLETED IN PAST YEAR FOR COPD 11/20/2024 11/21/2023 Lipid Panel 12/07/2027 12/06/2022, 02/26, 11/16/2021, Additional history exists Alpha-1 Antitrypsin Completed 11/16/2021 GARDASIL-HPV IMMUNIZATION SERIES Aged Out No longer eligible based on patient's age to complete this topic Hepatitis B Aged Out No longer eligi ble based on patient's age to complete this topic MENINGOCOCCAL (MENACTRA/MENVEO) Aged Out No longer eligible based on patient's age to complete this topic documented as of this encounter Medical Devices Not on filedocumented as of this encounter Results * MAGNESIUM (11/21/2023 1:45 PM EDT) Magnesium 2.1 1.5 - 2.6 mg/dL 11/21/2023 2:40 PM EDT [facility] 56-02 Blood Venous blood specimen / Unknown Venipuncture / Unknown 11/21/2023 1:45 PM EDT 11/21/2023 1:50 PM EDT Yulissa Castro MD LAB BLOOD ORDERABLES [facility] 56- [address] [facility] [place] [id number] documented in this encounter Visit Diagnoses Diagnosis Essential hypertension with goal blood pressure less than 130/80- Primary Benign hypertension with CKD (chronic kidney disease) stage III (HCC) Benign hypertensive kidney disease with chronic kidney disease stage I through stage IV, or unspecified Tobacco use disorder Panlobular emphysema (HCC) Other emphysema Prediabetes Other abnormal glucose History of leukemia Personal history of unspecified leukemia History of CVA (cerebrovascular accident) Transient ischemic attack (TIA), and cerebral infarction without residual deficits Weight gain Abnormal weight gain Chronic paranoid schizophrenia (HCC) Paranoid schizophrenia, chronic condition Encounter for long-term (current) use of medications Encounter for long-term (current) use of other medications Gastroesophageal reflux disease without esophagitis Esophageal reflux Screening for AAA (aortic abdominal aneurysm) Screening for other and unspecified cardiovascular conditions Screen for colon cancer Special screening for malignant neoplasms, colon Excessive cerumen in both ear canals documented in this encounter Care Teams Call Out Operator Relationship Specialty Start Date End Date Trip Segundo MD [address] [facility] [place] [id number] PCP - General Internal Medicine 12/22/17 documented as of this encounter
--- OUTSIDE RECORDS SUMMARY | 2023-12-10 16:32 | External Medical Summary | Summary of Care ---
Author Name Unknown Organization [facility] Address [address] [place] [address] Phone [phone] Care Team Providers Care Plum Packer Name Role Phone Trip Lemus MD Primary Care Provider + Reason for Visit * Reason Comments eRx-Medication Refill Encounter Details Date Type Department Care Team (Late st Contact Info) Description 11/11/2023 Refill General Internal Medicine [facility] [address] [place] [address] Trip Lemus MD [address] [place] [address] Allergies Active Allergy Reactions Criticality Noted Date Comments Benztropine 11/02/2022 Severe confusion [place] Carbonate 10/04/2000 documented as of this encounter (statuses as of 11/13/2023) Medications Medication Sig Dispensed Refills Start Date End Date Status hydrOXYzine HCl 10 MG Oral Tablet (Atarax) 0 2 Active Haloperidol Decanoate 100 MG/ML Intramuscular Solution Inject into a large muscle every 4 weeks . 0 Active diphenhydrAMINE HCl 50 MG Oral TabletIndications: Chronic paranoid schizophrenia (HCC) Take 1 Tablet by mouth 2 times a day as needed for Itching. 180 Tablet 3 3 Active Acetaminophen 500 MG Oral Tablet (Tylenol) Take 2 Tablets by mouth every 8 hours as needed for Fever >38C(100.5F) or Pain, Mild. 100 Tablet 0 3 Active Haloperidol 5 MG Oral Tablet (Haldol) Take 1 Tablet by mouth in the morning and 1 Tablet before bedtime. 0 3 Active LORazepam 0.5 MG Oral Tablet (Ativan) Take 1 Tablet by mouth as needed. 0 Active FLUoxetine HCl 20 MG Oral Capsule (PROzac) Take 1 Capsule by mouth in the morning. 0 Active Sodium Chloride 1 GM Oral TabletIndications: Hyponatremia Take 1 Tablet by mouth in the morning and 1 Tablet at noon and 1 Tablet in the evening. 90 Tablet 3 3 Active Methylphenidate HCl 10 MG Oral Tablet (Ritalin) Take 1 Tablet by mouth in the morning and 1 Tablet before bedtime. 0 Active Propranolol HCl 20 MG Oral Tablet (Inderal)Indicatio ns:NSVT (nonsustained ventricular tachycardia) (HCC) Take 1 tablet by mouth twice a day. 180 Tablet 1 3 Active Vitamin D3 125 MCG (5000 UT) Oral CapsuleIndications :Vitamin D deficiency TAKE 1 CAPSULE BY MOUTH ONCE DAILY FOR SUPPLEMENT 28 Capsule 4 3 Active Aspirin Low Dose 81 MG Oral Tablet Chewable (aspirin) TAKE 1 TABLET BY MOUTH DAILY * HEART HEALTH* 28 Tablet 4 4 Active Pantoprazole Sodium 40 MG Oral Tablet Delayed Release (Protonix)Indicati ons:Heartburn TAKE ONE TABLET BY MOUTH ONCE DAILY 30 MINUTES BEFORE THE FIRST MEALS FOR GERD 28 Tablet 5 4 Active Atorvastatin Calcium 20 MG Oral Tablet (Lipitor) TAKE ONE TABLET BY MOUTH AT BEDTIME FOR CHOLESTEROL 28 Tablet 5 4 Active Atorvastatin Calcium 20 MG Oral Tablet (Lipitor) TAKE ONE TABLET BY MOUTH AT BEDTIME FOR CHOLESTEROL 28 Tablet 11 3 11/13/19 24 Discontinued documented as of this encounter (statuses as of 11/13/2023) Active Problems Problem Noted Date Diagnosed Date [...] as of this encounter (statuses as of 11/13/2023) Resolved Problems Problem Noted Date Diagnosed Date Resolved Date Leukemia 09/22/2015 12/25/2017 Overview: As a child Special screening for malign ant neoplasm of prostate 05/23/2013 09/22/2015 Illness 03/28/2013 09/22/2015 Overview: at [facility] Dementia 09/24/2021 documented as of this encounter (statuses as of 11/13/2023) Immunizations Name Administration Dates Next Due Pneumococcal [...] on file documented as of this encounter Miscellaneous Notes * Telephone Encounter - Cathie Andrea, [facility] - 11/13/2023 12:57 PM EDTSigned Prescriptions: Disp Refills Atorvastatin Calcium 20 MG Oral Tablet (Li*28 Tab*5 Sig: TAKE ONE TABLET BY MOUTH AT BEDTIME FOR CHOLESTEROLAuthorizing Provider: TRIP LEMUS User: CATHIE ANDREA documented in this encounter Plan of Treatment Upcoming Encounters Date Type Department Care Team (Late st Contact Info) Description 11/21/2023 1:00 PM EDT Office Visit General Internal Medicine [facility] [place] [address] [place] [address] Yulissa Castro MD 200 [facility] [place], [place] [address] Health Maintenance Due Date Last Done Comments DISCUSS TOBACCO CESSATION (REFER TO SMARTSET #5665) 1950 COVID-19 Vaccine (#1) 1956 CKD PHOS USE SMARTSET 23378 1969 Zoster Vaccines (1 of 2) 1970 Cologuard 1996 Colonoscopy 1996 Colorectal Cancer Screening 1996 Fecal Occult Blood Test 1996 Sigmoidoscopy 1996 LUNG CANCER SCREENING - USE SMARTSET 97965 2001 AAA Screening 2016 Pneumococcal Vaccine: 65+ Years (2 of 2 - PCV) 01/12/2017 01/13/2016 DTaP,Tdap,and Td Vaccines (2 - Td or Tdap) 10/01/2018 10/01/2008, 08/24/2001 Depression Screening 04/04/2023 04/04/2022 Influenza Vaccine (FLU shot) (#1) 2023 GFR 12/01/2023 06/01/2023, 12/26, 12/06/2022, Additional history exists CKD HGB USE SMARTSET 86523 12/07/202312/06, 12/06/2022, 05/17/2022, Additional history exists HbA1c 12/07/2023 12/06/2022, 03/29, 03/17/2022, Additional history exists O2 ASSESSMENT COMPLETED IN PAST YEAR FOR COPD 05/19/2024 05/19/2023 Albumin/Creatinine Ratio 06/01/2024 06/01/2023, 12/26 Lipid Panel 12/07/2027 12/06/2022, 02/26, 11/16/2021, Additional [...] Not on filedocumented as of this encounter Care Teams Plum Packer Relationship Specialty Start Date End Date Trip Lemus MD [address] [facility] [place] [address] PCP - General Internal Medicine 12/22/17 documented as of this encounter
--- OUTSIDE RECORDS SUMMARY | 2023-12-10 16:32 | External Medical Summary | Summary of Care ---
Author Name Unknown Organization [facility] Address [address] [place] [address] Phone [phone] Care Team Providers Care Inspector Rag Sorting Name Role Phone Trip Lemus MD Primary Care Provider + Reason for Visit * Reason Comments eRx-Medication Refill Encounter Details Date Type Department Care Team (Late st Contact Info) Description 10/13/2023 Refill General Internal Medicine [facility] 200 [facility] [place] [address] Darian Lynne PA-C [address] [place] [address] [place] [address] Heartburn Allergies Active Allergy Reactions Criticality Noted Date Comments Benztropine 11/02/2022 Severe confusion [place] Carbonate 10/04/2000 documented as of this encounter (statuses as of 10/14/2023) Medications Medication Sig Dispensed Refills Start Date [...] and 1 Tablet before bedtime. 0 Active Atorvastatin Calcium 20 MG Oral Tablet (Lipitor) TAKE ONE TABLET BY MOUTH AT BEDTIME FOR CHOLESTEROL 28 Tablet 11 3 Active Propranolol HCl 20 MG Oral Tablet [...] FOR GERD 28 Tablet 5 4 Active Pantoprazole Sodium 40 MG Oral Tablet Delayed Release (Protonix)Indicati ons:Heartburn TAKE ONE TABLET BY MOUTH ONCE DAILY 30 MINUTES BEFORE THE FIRST MEALS FOR GERD 28 Tablet 5 3 10/14/19 24 Discontinued documented as of this encounter (statuses as of 10/14/2023) Active Problems Problem Noted Date Diagnosed Date [...] as of this encounter (statuses as of 10/14/2023) Resolved Problems Problem Noted Date Diagnosed Date Resolved Date Leukemia 09/22/2015 12/25/2017 Overview: As a child Special screening for malign ant neoplasm of prostate 05/23/2013 09/22/2015 Illness 03/28/2013 09/22/2015 Overview: at [facility] Dementia 09/24/2021 documented as of this encounter (statuses as of 10/14/2023) Immunizations Name Administration Dates Next Due Pneumococcal [...] Miscellaneous Notes * [facility] 9:13 AM ESTSigned Prescriptions: Disp Refills Pantoprazole Sodium 40 MG Oral Tablet Pamela*28 Tab*5 Sig: TAKE ONE TABLET BY MOUTH ONCE DAILY 30 MINUTES BEFORE THE FIRST MEALS FOR GERDAuthorizing Provider: TRIP LEMUS User: CATHIE ANDREA documented in this encounter Plan of Treatment Upcoming Encounters Date Type Department Care Team (Late st Contact Info) Description 11/21/2023 1:00 PM EDT Office Visit General Internal Medicine [facility] [place] [address] [place], [place] [address] Yulissa Castro MD 200 [facility] [place] [address] Health Maintenance Due Date Last Done Comments DISCUSS TOBACCO CESSATION (REFER TO SMARTSET #7050) 1950 COVID-19 Vaccine (#1) 1956 CKD PHOS USE SMARTSET 10103 1969 Zoster Vaccines (1 of 2) 1970 Cologuard 1996 Colonoscopy 1996 Colorectal Cancer Screening 1996 Fecal Occult Blood Test 1996 Sigmoidoscopy 1996 LUNG CANCER SCREENING - USE SMARTSET 58465 2001 AAA Screening 2016 Pneumococcal Vaccine: 65+ Years (2 - PCV) 01/12/2017 01/13/2016 DTaP,Tdap,and Td Vaccines (2 - Td or Tdap) 10/01/2018 10/01/2008, 08/24/2001 Depression Screening 04/04/2023 04/04/2022 Influenza Vaccine (FLU shot) (#1) 2023 GFR 12/01/2023 06/01/2023, 12/26, 12/06/2022, Additional history exists CKD HGB USE SMARTSET 77980 12/07/202312/06, 12/06/2022, 05/17/2022, Additional history exists HbA1c [...] Not on filedocumented as of this encounter Visit Diagnoses Diagnosis Heartburn documented in this encounter Care Teams Inspector Rag Sorting Relationship Specialty Start Date End Date Trip Lemus MD [address] [place] [address] PCP - General Internal Medicine 12/22/17 documented as of this encounter
--- OUTSIDE RECORDS SUMMARY | 2023-12-10 16:32 | External Medical Summary | Summary of Care ---
Author Name Unknown Organization [facility] Address [address] [place] [address] Phone [phone] Care Team Providers Care Trimmer Operator Three Knife Name Role Phone Trip Segundo MD Primary Care Provider + Reason for Visit * Reason Comments Physical-Exam Cough Has had a cough for awhile, says it's from smoking too many cigarettes. Also having mucus production that he cannot always get up. Encounter Details Date Type Department Care Team (Latest Contact Info) Description 11/21/2023 1:00 PM EDT Office Visit General Internal Medicine [facility] 200 [facility] [place] [address] Yulissa Castro MD [address] [place] [address] Essential hypertension with goal blood pressure less [...] Noted Date Comments Benztropine 11/02/2022 Severe confusion [place] Carbonate 10/04/2000 documented as of this encounter [...] 05/23/2013 09/22/2015 Illness 03/28/2013 09/22/2015 Overview: at [facility] Dementia 09/24/2021 documented as of this encounter [...] has declined treatments per previous notes. 11/2015-chest p-dpl-qfkikcxo of COPD Has audible rattle in the [...] Overweight (BMI 25.0-29.9) E66.3 Chronic paranoid schizophrenia ([facility]) F20.0 Joint symptoms of hand R29.91 Tobacco use disorder F17.200 NSVT (nonsustained ventricular tachycardia) ([facility]) I47.29 Panlobular emphysema ([facility]) J43.1 History of leukemia Z85.6 Chronic insomnia F51.04 Essential hypertension with goal blood pressure less than 130/80 I10 Prediabetes R73.03 Adverse effect of losartan T46.5X5A History of CVA (cerebrovascular accident) Z86.73 Benign hypertension with CKD (chronic kidney disease) stage III ([facility]) I12.9, N18.30 Current Outpatient Medications Medication Sig [...] allergies indicates: Allergen Reactions Benztropine Severe confusion [place] Carbonate OBJECTIVE: BP 134/86 | Pulse 62 [...] PM EDT Office Visit [facility] [place] [address] [place] [address] Trip Segundo MD 200 [facility] [place] [address] Pending Results Name Type Priority Associated Diagnoses [...] Comments DISCUSS TOBACCO CESSATION (REFER TO SMARTSET #1000) 1950 COVID-19 Vaccine (#1) 1956 CKD PHOS USE SMARTSET 66074 1969 Zoster Vaccines (1 of 2) 1970 Cologuard 1996 Colonoscopy 1996 Colorectal Cancer Screening 1996 Fecal Occult Blood Test 1996 Sigmoidoscopy 1996 LUNG CANCER SCREENING - USE SMARTSET 17251 2001 AAA Screening 2016 Pneumococcal Vaccine: 65+ Years (2 of 2 - PCV) 01/12/2017 01/13/2016 DTaP,Tdap,and Td Vaccines (2 - Td or Tdap) 10/01/2018 10/01/2008, 08/24/2001 Depression Screening 04/04/2023 04/04/2022 Influenza Vaccine (FLU shot) (#1) 2023 GFR 12/01/2023 06/01/2023, 12/26, 12/06/2022, Additional history exists CKD HGB USE SMARTSET 02833 12/07/202312/06, 12/06/2022, 05/17/2022, Additional history exists HbA1c [...] - 2.6 mg/dL 11/21/2023 2:40 PM EDT [facility] 56-02 Blood Venous blood specimen / Unknown Venipuncture / Unknown 11/21/2023 1:45 PM EDT 11/21/2023 1:50 PM EDT Yulissa Castro MD LAB BLOOD ORDERABLES [facility] 56- [address] [facility] [place] [address] documented in this encounter Visit Diagnoses Diagnosis [...] canals documented in this encounter Care Teams Trimmer Operator Three Knife Relationship Specialty Start Date End Date Trip Segundo MD [address] [facility] [place] [address] PCP - General Internal Medicine 12/22/17 documented as of this encounter
--- OUTSIDE RECORDS SUMMARY | 2023-12-10 16:32 | External Medical Summary | Summary of Care ---
Author Name Unknown Organization [facility] Address [address] [place] [address] Phone [phone] Care Team Providers Care Communication Arts Lecturer Name Role Phone Trip Segundo MD Primary Care Provider + Reason for Visit * Reason Comments Outpatient Testing Encounter Details Date Type Department Care Team (Late st Contact Info) Description 11/21/2023 2:00 PM EDT Laboratory Laboratory [facility] [address] [place] [address] [place] [address] [place] [address] Encounter for long-term (current) use of medications; Gastroesophageal reflux disease without esophagitis Allergies Active Allergy Reactions Criticality Noted Date Comments Benztropine 11/02/2022 Severe confusion [place] Carbonate 10/04/2000 documented as of this encounter (statuses as of 11/21/2023) Medications Medication Sig Dispensed Refills Start Date End Date Status hydrOXYzine HCl 10 MG Oral Tablet (Atarax) 0 11/11/2021 Active Haloperidol Decanoate 100 MG/ML Intramuscular Solution Inject into a large muscle every 4 weeks . 0 Active diphenhydrAMINE HCl 50 MG Oral TabletIndications:Ch ronic paranoid schizophrenia (HCC) Take 1 Tablet by [...] 0 Active Sodium Chloride 1 GM Oral TabletIndications:Hy ponatremia Take 1 Tablet by mouth in the morning and 1 Tablet at noon and 1 Tablet in the evening. 90 Tablet 3 12/01/2022 Active Methylphenidate HCl 10 MG Oral Tablet (Ritalin) Take 1 Tablet by mouth in the morning and 1 Tablet before bedtime. 0 Active Propranolol HCl 20 MG Oral Tablet (Inderal)Indications :NSVT (nonsustained ventricular tachycardia) (HCC) Take 1 tablet by mouth twice a day. 180 Tablet 1 06/23/2023 Active Vitamin D3 125 MCG (5000 UT) Oral CapsuleIndications:V itamin D deficiency TAKE 1 CAPSULE BY MOUTH ONCE DAILY FOR SUPPLEMENT 28 Capsule 4 07/31/2023 Active Aspirin Low Dose 81 MG Oral Tablet Chewable (aspirin) TAKE 1 TABLET BY MOUTH DAILY * HEART HEALTH* 28 Tablet 4 09/22/2023 Active Pantoprazole Sodium 40 MG Oral Tablet Delayed Release (Protonix)Indication s:Heartburn TAKE ONE TABLET BY MOUTH ONCE DAILY 30 MINUTES BEFORE THE FIRST MEALS FOR GERD 28 Tablet 5 10/14/2023 Active Atorvastatin Calcium 20 MG Oral Tablet (Lipitor) TAKE ONE TABLET BY MOUTH AT BEDTIME FOR CHOLESTEROL 28 Tablet 5 11/13/2023 Active FLUoxetine HCl 40 MG Oral Capsule (PROzac)Indications: Chronic paranoid schizophrenia (HCC) Take 1 Capsule by mouth in the morning. Per psychiatry. 0 11/21/2023 Active Debrox 6.5 % Otic Solution (Carbamide Peroxide)Indications :Excessive cerumen in both ear canals Instill 5 to 10 drops twice daily for 4 days. To both ear canals; insert cotton plug. Remove plug after 15 to 30 minutes. 15 mL 1 11/21/2023 Active documented as of this encounter (statuses as [...] 05/23/2013 09/22/2015 Illness 03/28/2013 09/22/2015 Overview: at [facility] Dementia 09/24/2021 documented as of this [...] on file documented as of this encounter Plan of Treatment Upcoming Encounters Date Type Department Care Team (Late st Contact Info) Description 06/11/2024 2:00 PM EDT Office Visit General Internal Medicine [facility] [place] [address] [place] [address] Trip Segundo MD [address] [place] [address] Pending Results Name Type Priority Associated Diagnoses Date /Time VITAMIN B12 Lab Routine Encounter for long-term (current) use of medications Gastroesophageal reflux disease without esophagitis 11/21/2023 1:45 PM EDT [facility] Lab Routine Encounter for long-term (current) use of medications Gastroesophageal reflux disease without esophagitis 11/21/2023 1:45 PM EDT Health Maintenance Due Date Last Done Comments DISCUSS TOBACCO CESSATION (REFER TO SMARTSET #3291) 1950 COVID-19 Vaccine (#1) 1956 CKD PHOS USE SMARTSET 71784 1969 Zoster Vaccines (1 of 2) 1970 Cologuard 1996 Colonoscopy 1996 Colorectal Cancer Screening 1996 Fecal Occult Blood Test 1996 Sigmoidoscopy 1996 LUNG CANCER SCREENING - USE SMARTSET 54206 2001 AAA Screening 2016 Pneumococcal Vaccine: 65+ Years (2 of 2 - PCV) 01/12/2017 01/13/2016 DTaP,Tdap,and Td Vaccines (2 - Td or Tdap) 10/01/2018 10/01/2008, 08/24/2001 Depression Screening 04/04/2023 04/04/2022 Influenza Vaccine (FLU shot) (#1) 2023 GFR 12/01/2023 06/01/2023, 12/26, 12/06/2022, Additional history exists CKD HGB USE SMARTSET 02467 12/07/202312/06, 12/06/2022, 05/17/2022, Additional history exists HbA1c [...] as of this encounter Visit Diagnoses Diagnosis Encounter for long-term (current) use of medications Encounter for long-term (current) use of other medications Gastroesophageal reflux disease without esophagitis Esophageal reflux documented in this encounter Care Teams Communication Arts Lecturer Relationship Specialty Start Date End Date Trip Segundo MD [address] [place] [address] PCP - General Internal Medicine 12/22/17 documented as of this encounter
--- OUTSIDE RECORDS SUMMARY | 2023-12-10 16:32 | External Medical Summary | Summary of Care ---
Author Name Unknown Organization [facility] Address [address] [place] [address] Phone [phone] Care Team Providers Care Donor Processor Name Role Phone Trip Segundo MD Primary Care Provider + Reason for Visit * Reason Onset Date Comments Information 10/03/2023 AAA screening Encounter Details Date Type Department Care Team (Late st Contact Info) Description 10/03/2023 Telephone General Internal Medicine [facility] [address] [place] [address] Trip Segundo MD [address] [place] [address] Information (AAA screening ) Allergies Active Allergy Reactions Criticality Noted Date Comments Benztropine 11/02/2022 Severe confusion [place] Carbonate 10/04/2000 documented as of this encounter (statuses as of 10/09/2023) Medications Medication Sig Dispensed Refills Start Date [...] the evening. 90 Tablet 3 12/01/2022 Active Pantoprazole Sodium 40 MG Oral Tablet Delayed Release (Protonix)Indication s:Heartburn TAKE ONE TABLET BY MOUTH ONCE DAILY 30 MINUTES BEFORE THE FIRST MEALS FOR GERD 28 Tablet 5 04/27/2023 Active Methylphenidate HCl 10 MG Oral Tablet (Ritalin) Take 1 Tablet by mouth in the morning and 1 Tablet before bedtime. 0 Active Atorvastatin Calcium 20 MG Oral Tablet (Lipitor) TAKE ONE TABLET BY MOUTH AT BEDTIME FOR CHOLESTEROL 28 Tablet 11 05/20/2023 Active Propranolol HCl 20 MG Oral Tablet [...] HEART HEALTH* 28 Tablet 4 09/22/2023 Active documented as of this encounter (statuses as of 10/09/2023) Active Problems Problem Noted Date Diagnosed Date [...] as of this encounter (statuses as of 10/09/2023) Resolved Problems Problem Noted Date Diagnosed Date Resolved Date Leukemia 09/22/2015 12/25/2017 Overview: As a child Special screening for malign ant neoplasm of prostate 05/23/2013 09/22/2015 Illness 03/28/2013 09/22/2015 Overview: at [facility] Dementia 09/24/2021 documented as of this encounter (statuses as of 10/09/2023) Immunizations Name Administration Dates Next Due Pneumococcal [...] encounter Miscellaneous Notes * Telephone Encounter - Josefa Hamilton LPN - 10/09/2023 2:05 PM EST Through advanced analysis/trending of this patient's history, they have been identified to have a positive AAA flag and are at a higher risk for Abdominal aortic aneurysm. This advanced analysis estimates the patient's risk for AAA. It only indicates that the patient's chances to have this condition are higher compared to most people. It does not indicate that the patient has this condition, but it is highly recommended the patient have a AAA screening for further evaluation. I have contacted the patient regarding scheduling a AAA screening. Outcomes: Patient declined sent to PCP from review FYI * Telephone Encounter - Josefa Hamilton LPN - 10/06/2023 3:00 PM EST Through advanced analysis/trending of this patient's history, they have been identified to have a positive AAA flag and are at a higher risk for Abdominal aortic aneurysm. This advanced analysis estimates the patient's risk for AAA. It only indicates that the patient's chances to have this condition are higher compared to most people. It does not indicate that the patient has this condition, but it is highly recommended the patient have a AAA screening for further evaluation. I have contacted the patient regarding scheduling a AAA screening. Outcomes: Left message * Telephone Encounter - Josefa Hamilton LPN - 10/04/2023 3:22 PM EST I am calling to discuss some recommended testing. Our records indicate that you are due for a screening ultrasound of your aorta (this test checks for an enlargement of your aorta at the level of your abdomen). Have you had discussions with your provider about this?we've recently started evaluating your electronic health record to provide better screening and care for people at risk for disease of the aorta (the main artery that carries blood from your heart to the rest of your body). Based on your laboratory results and other clinical conditions, you may be at high risk for an abdominal aortic aneurysm (AAA, an enlargement of your lower aorta). This evaluation doesn't mean you have an AAA. It just means you should get screened at your earliest convenience by having an ultrasound. The screening results will tell your doctor if there's anything they need to examine more closely. Through advanced analysis/trending of this patient's history, they have been identified to have a positive AAA flag and are at a higher risk for Abdominal aortic aneurysm. This advanced analysis estimates the patient's risk for AAA. It only indicates that the patient's chances to have this condition are higher compared to most people. It does not indicate that the patient has this condition, but it is highly recommended the patient have a AAA screening for further evaluation. I have contacted the patient regarding scheduling a AAA screening. Outcomes: Left message With staff of assisted living who will discuss with pt. * Telephone Encounter - Josefa Hamilton LPN - 10/03/2023 11:16 AM EST Through advanced analysis/trending of this patient's history, they have been identified to have a positive AAA flag and are at a higher risk for Abdominal aortic aneurysm. Pt will be contacted by a [facility] nurse to discuss AAA screening. documented in this encounter Plan of Treatment Upcoming Encounters Date Type Department Care Team (Late st Contact Info) Description 11/21/2023 1:00 PM EDT Office Visit General Internal Medicine [address] [place] [address] Yulissa Castro MD [address] [facility] [address] Health Maintenance Due Date Last Done Comments DISCUSS TOBACCO CESSATION (REFER TO SMARTSET #5350) 1950 COVID-19 Vaccine (#1) 1956 CKD PHOS USE SMARTSET 50944 1969 Zoster Vaccines (1 of 2) 1970 Cologuard 1996 Colonoscopy 1996 Colorectal Cancer Screening 1996 Fecal Occult Blood Test 1996 Sigmoidoscopy 1996 LUNG CANCER SCREENING - USE SMARTSET 83985 2001 AAA Screening 2016 Pneumococcal Vaccine: 65+ Years (2 - PCV) 01/12/2017 01/13/2016 DTaP,Tdap,and Td Vaccines (2 - Td or Tdap) 10/01/2018 10/01/2008, 08/24/2001 Depression Screening 04/04/2023 04/04/2022 Influenza Vaccine (FLU shot) (#1) 2023 GFR 12/01/2023 06/01/2023, 12/26, 12/06/2022, Additional history exists CKD HGB USE SMARTSET 00127 12/07/202312/06, 12/06/2022, 05/17/2022, Additional history exists HbA1c [...] filedocumented as of this encounter Care Teams Donor Processor Relationship Specialty Start Date End Date Trip Segundo MD [address] [place] [address] PCP - General Internal Medicine 12/22/17 documented as of this encounter
--- OUTSIDE RECORDS SUMMARY | 2023-12-10 16:32 | External Medical Summary | Summary of Care ---
Author Name Unknown Organization [facility] Address [address] [place] [address] Phone [phone] Care Team Providers Care Aircraft Riveter Name Role Phone Trip Lemus MD Primary Care Provider + Reason for Visit * Reason Comments eRx-Medication Refill Encounter Details Date Type Department Care Team (Late st Contact Info) Description 07/27/2023 Refill General Internal Medicine [facility] 200 [facility] [place] [address] Trip Lemus MD [address] [place] [address] Vitamin D deficiency Allergies Active Allergy Reactions Criticality Noted Date Comments Benztropine 11/02/2022 Severe confusion [place] Carbonate 10/04/2000 documented as of this encounter (statuses as of 07/31/2023) Medications Medication Sig Dispensed Refills Start Date [...] Tablet by mouth as needed. 0 Active Aspirin 81 MG Oral Tablet Chewable Take 1 Tablet by mouth in the morning. with food.. 100 Tablet 5 3 Active FLUoxetine HCl 20 MG Oral Capsule (PROzac) Take 1 Capsule by mouth in the morning. 0 Active Sodium Chloride 1 GM Oral TabletIndications: Hyponatremia Take 1 Tablet by mouth in the morning and 1 Tablet at noon and 1 Tablet in the evening. 90 Tablet 3 3 Active Pantoprazole Sodium 40 MG Oral Tablet Delayed Release (Protonix)Indicati ons:Heartburn TAKE ONE TABLET BY MOUTH ONCE DAILY 30 MINUTES BEFORE THE FIRST MEALS FOR GERD 28 Tablet 5 3 Active Methylphenidate HCl 10 MG Oral [...] FOR SUPPLEMENT 28 Capsule 4 3 Active Vitamin D3 Maximum Strength 125 MCG (5000 UT) Oral Capsule (Cholecalciferol)I ndications:Vitamin D deficiency Take by mouth 1 Capsule in the morning. 90 Capsule 1 2 07/31/20 23 Discontinued documented as of this encounter (statuses as of 07/31/2023) Active Problems Problem Noted Date Diagnosed Date [...] as of this encounter (statuses as of 07/31/2023) Resolved Problems Problem Noted Date Diagnosed Date Resolved Date Leukemia 09/22/2015 12/25/2017 Overview: As a child Special screening for malign ant neoplasm of prostate 05/23/2013 09/22/2015 Illness 03/28/2013 09/22/2015 Overview: at [facility] Dementia 09/24/2021 documented as of this encounter (statuses as of 07/31/2023) Immunizations Name Administration Dates Next Due Pneumococcal [...] encounter Miscellaneous Notes * Telephone Encounter - Trip Lemus MD - 07/31/2023 8:22 AM ESTSigned Prescriptions: Disp Refills Vitamin D3 125 MCG (5000 UT) Oral Capsule 28 Cap*4 Sig: TAKE 1 CAPSULE BY MOUTH ONCE DAILY FOR SUPPLEMENT Authorizing Provider: TRIP LEMUS * Telephone Encounter - Jami Hamilton LPN - 07/31/2023 7:14 AM ESTPending Prescriptions: Disp Refills Vitamin D3 125 MCG (5000 UT) Oral Capsule *28 Cap*4 Sig: TAKE 1 CAPSULE BY MOUTH ONCE DAILY FOR SUPPLEMENT * Telephone Encounter - Jami Hamilton LPN - 07/31/2023 7:13 AM EST Did you pend patient's preferred pharmacy and medication before forwarding?yes Pharmacy: [facility] [address] Pending Prescriptions: Disp Refills Vitamin D3 125 MCG (5000 UT) Oral Capsule*28 Cap*4 Sig: TAKE 1 CAPSULE BY MOUTH ONCE DAILY FOR SUPPLEMENT Last Visit: 05/19/2023 (in office), Visit date not found (telemedicine) Next Visit: 11/16/2023 If no future appointments scheduled, and last appointment is greater than a year ago, please schedule patient for a follow-up appointment Last date the medication was ordered: 02/24/22 Is this request for a controlled substance?No Urine Drug Screen:No results found for this or any previous visit. Patient Phone Numbers Labs: Lab Results Component Value Date/Time CREAT 1.2 06/01/2023 12:39 PM CREAT 1.2 06/27/2018 02:20 PM POTASSIUM 4.6 06/01/2023 12:39 PM POTASSIUM 4.2 06/27/2018 02:20 PM TSH 1.97 12/06/2022 09:44 AM TSH 2.88 12/25/2017 03:07 PM LDLCALC 82 12/06/2022 09:44 AM LDLCALC 108 06/27/2018 02:20 PM LDLDIRECT NOT APPLICABLE 06/27/2018 02:20 PM ALT 13 12/06/2022 09:44 AM ALT <5 (L) 06/27/2018 02:20 PM HGBA1C 5.6 12/06/2022 09:44 AM * Telephone Encounter - Miguel A Brizuela - 07/27/2023 7:08 PM ESTPending Prescriptions: Disp Refills Vitamin D3 125 MCG (5000 UT) Oral Capsule *28 Cap*4 Sig: TAKE 1CAPSULE BY MOUTH ONCE DAILY FOR SUPPLEMENT documented in this encounter Plan of Treatment Upcoming Encounters Date Type Department Care Team (Late st Contact Info) Description 11/16/2023 9:00 AM EDT Office Visit General Internal Medicine [facility] 200 [facility] [place] [address] Darian Lynne PA-C 200 [place] [address] Scheduled Orders Name Type Priority Associated Diagnoses Orde r Schedule 25-HYDROXY VITAMIN D Lab Routine Vitamin D deficiency Expected: 10/30/2023 (Approximate), Expires: 07/31/2024 Health Maintenance Due Date Last Done Comments DISCUSS TOBACCO CESSATION (REFER TO SMARTSET #7583) 1950 COVID-19 Vaccine (#1) 1956 Zoster Vaccines (1 of 2) 1970 Cologuard 1996 Colonoscopy 1996 Colorectal Cancer Screening 1996 Fecal Occult Blood Test 1996 Sigmoidoscopy 1996 LUNG CANCER SCREENING - USE SMARTSET 60205 2001 AAA Screening 2016 Pneumococcal Vaccine: 65+ Years (2 - PCV) 01/12/2017 01/13/2016 DTaP,Tdap,and Td Vaccines (2 - Td or Tdap) 10/01/2018 10/01/2008, 08/24/2001 Depression Screening 04/04/2023 04/04/2022 Influenza Vaccine (FLU shot) (#1) 2023 GFR 12/01/2023 06/01/2023, 12/26, 12/06/2022, Additional history exists HbA1c 12/07/2023 12/06/2022, 03/29, [...] as of this encounter Visit Diagnoses Diagnosis Vitamin D deficiency Unspecified vitamin D deficiency documented in this encounter Care Teams Aircraft Riveter Relationship Specialty Start Date End Date Trip Lemus MD [address] [place] [address] PCP - General Internal Medicine 12/22/17 documented as of this encounter
--- OUTSIDE RECORDS SUMMARY | 2023-12-10 16:32 | External Medical Summary | Summary of Care ---
Author Name Unknown Organization [facility] Address [address] [place] [address] Phone [phone] Care Team Providers Care Livestock Rancher Name Role Phone Trip Segundo MD Primary Care Provider + Reason for Visit * Reason Comments eRx-Medication Refill Encounter Details Date Type Department Care Team (Late st Contact Info) Description 09/21/2023 Refill General Internal Medicine [facility] 200 [facility] [place] [address] Darian Cornejo PA-C [address] [place] [address] [place] [address] Allergies Active Allergy Reactions Criticality Noted Date Comments Benztropine 11/02/2022 Severe confusion [place] Carbonate 10/04/2000 documented as of this encounter (statuses as of 09/22/2023) Medications Medication Sig Dispensed Refills Start Date [...] HEART HEALTH* 28 Tablet 4 4 Active Aspirin 81 MG Oral Tablet Chewable Take 1 Tablet by mouth in the morning. with food.. 100 Tablet 5 3 09/22/19 24 Discontinued documented as of this encounter (statuses as of 09/22/2023) Active Problems Problem Noted Date Diagnosed Date [...] as of this encounter (statuses as of 09/22/2023) Resolved Problems Problem Noted Date Diagnosed Date Resolved Date Leukemia 09/22/2015 12/25/2017 Overview: As a child Special screening for malign ant neoplasm of prostate 05/23/2013 09/22/2015 Illness 03/28/2013 09/22/2015 Overview: at [facility] Dementia 09/24/2021 documented as of this encounter (statuses as of 09/22/2023) Immunizations Name Administration Dates Next Due Pneumococcal [...] encounter Miscellaneous Notes * Telephone Encounter - Faye Wesley [facility] - 09/22/2023 6:42 AM ESTSigned Prescriptions: Disp Refills Aspirin Low Dose 81 MG Oral Tablet Chewabl*28 Tab*4 Sig: TAKE 1 TABLET BY MOUTH DAILY * HEART HEALTH*Authorizing Provider: DARIAN CORNEJO User: ABDIRAHMAN WESLEY documented in this encounter Plan of Treatment Upcoming Encounters Date Type Department Care Team (Late st Contact Info) Description 11/21/2023 1:00 PM EDT Office Visit General Internal Medicine [facility] [place] 200 [facility] [place] [address] Yulissa Castro MD 200 [facility] [place] [address] Health Maintenance Due Date Last Done Comments DISCUSS TOBACCO CESSATION (REFER TO SMARTSET #3299) 1950 COVID-19 Vaccine (#1) 1956 CKD PHOS USE SMARTSET 61064 1969 Zoster Vaccines (1 of 2) 1970 Cologuard 1996 Colonoscopy 1996 Colorectal Cancer Screening 1996 Fecal Occult Blood Test 1996 Sigmoidoscopy 1996 LUNG CANCER SCREENING - USE SMARTSET 51163 2001 AAA Screening 2016 Pneumococcal Vaccine: 65+ Years (2 - PCV) 01/12/2017 01/13/2016 DTaP,Tdap,and Td Vaccines (2 - Td or Tdap) 10/01/2018 10/01/2008, 08/24/2001 Depression Screening 04/04/2023 04/04/2022 Influenza Vaccine (FLU shot) (#1) 2023 GFR 12/01/2023 06/01/2023, 12/26, 12/06/2022, Additional history exists CKD HGB USE SMARTSET 94146 12/07/202312/06, 12/06/2022, 05/17/2022, Additional history exists HbA1c [...] filedocumented as of this encounter Care Teams Livestock Rancher Relationship Specialty Start Date End Date Trip Segundo MD [address] [place] [address] PCP - General Internal Medicine 12/22/17 documented as of this encounter
--- OUTSIDE RECORDS SUMMARY | 2023-12-10 16:32 | External Medical Summary | Summary of Care ---
Author Name Unknown Organization [facility] Address [address] [place] [address] Phone [phone] Care Team Providers Care Graduate Rn Name Role Phone Trip Segundo MD Primary Care Provider + Encounter Details Date Type Department Care Team (Late st Contact Info) Description 10/03/2023 External Data Patient Risk Medial Allergies Active Allergy Reactions Criticality Noted Date Comments Benztropine 11/02/2022 Severe confusion [place] Carbonate 10/04/2000 documented as of this encounter (statuses as of 10/03/2023) Medications Medication Sig Dispensed Refills Start Date [...] as of this encounter (statuses as of 10/03/2023) Active Problems Problem Noted Date Diagnosed Date [...] as of this encounter (statuses as of 10/03/2023) Resolved Problems Problem Noted Date Diagnosed Date Resolved Date Leukemia 09/22/2015 12/25/2017 Overview: As a child Special screening for malign ant neoplasm of prostate 05/23/2013 09/22/2015 Illness 03/28/2013 09/22/2015 Overview: at [facility] Dementia 09/24/2021 documented as of this encounter (statuses as of 10/03/2023) Immunizations Name Administration Dates Next Due Pneumococcal [...] PM EDT Office Visit General Internal Medicine [facility] 200 [facility] [place] [address] Yulissa Castro MD 200 [place] [address] Health Maintenance Due Date Last Done Comments DISCUSS TOBACCO CESSATION (REFER TO SMARTSET #1702) 1950 COVID-19 Vaccine (#1) 1955 CKD PHOS USE SMARTSET 22482 1969 Zoster Vaccines (1 of 2) 1970 Cologuard 1996 Colonoscopy 1996 Colorectal Cancer Screening 1996 Fecal Occult Blood Test 1996 Sigmoidoscopy 1996 LUNG CANCER SCREENING - USE SMARTSET 15111 2001 AAA Screening 2016 Pneumococcal Vaccine: 65+ Years (2 - PCV) 01/12/2017 01/13/2016 DTaP,Tdap,and Td Vaccines (2 - Td or Tdap) 10/01/2018 10/01/2008, 08/24/2001 Depression Screening 04/04/2023 04/04/2022 Influenza Vaccine (FLU shot) (#1) 2023 GFR 12/01/2023 06/01/2023, 12/26, 12/06/2022, Additional history exists CKD HGB USE SMARTSET 48360 12/07/202312/06, 12/06/2022, 05/17/2022, Additional history exists HbA1c [...] filedocumented as of this encounter Care Teams Graduate Rn Relationship Specialty Start Date End Date Trip Segundo MD [address] [place] [address] PCP - General Internal Medicine 12/22/17 documented as of this encounter
--- OUTSIDE RECORDS SUMMARY | 2023-12-10 16:32 | External Medical Summary ---
Author Name Unknown Address Unknown Organization K01:[facility] - [address] [place] [address] Laboratory Report Ordering Provider Test Date Status ARBEN SALOMON 11/21/2023 13:45:37 Final Observation Date Value Abnormality Reference (Units ) Status Vitamin B12 11/21/2023 13:45:37 [id number] (pg/mL) Final Performing Location [facility] - [address] [place] [address]
--- OUTSIDE RECORDS SUMMARY | 2023-12-10 16:32 | External Medical Summary | Summary of Care ---
Author Name Unknown Organization [facility] Address [address] [place] [address] Phone [phone] Care Team Providers Care Physical Testing Supervisor Name Role Phone Trip Segundo MD Primary Care Provider + Reason for Visit * Reason Onset Date Comments Health Maintenance 08/02/2023 Encounter Details Date Type Department Care Team (Late st Contact Info) Description 08/02/2023 Telephone General Internal Medicine [facility] [address] [place] [address] Trip Segundo MD [address] [place] [address] Health Maintenance Allergies Active Allergy Reactions Criticality Noted Date Comments Benztropine 11/02/2022 Severe confusion [place] Carbonate 10/04/2000 documented as of this encounter (statuses as of 08/02/2023) Medications Medication Sig Dispensed Refills Start Date [...] the morning. with food.. 100 Tablet 5 11/02/2022 Active FLUoxetine HCl 20 MG Oral Capsule [...] FOR SUPPLEMENT 28 Capsule 4 07/31/2023 Active documented as of this encounter (statuses as of 08/02/2023) Active Problems Problem Noted Date Diagnosed Date [...] as of this encounter (statuses as of 08/02/2023) Resolved Problems Problem Noted Date Diagnosed Date Resolved Date Leukemia 09/22/2015 12/25/2017 Overview: As a child Special screening for malign ant neoplasm of prostate 05/23/2013 09/22/2015 Illness 03/28/2013 09/22/2015 Overview: at [facility] Dementia 09/24/2021 documented as of this encounter (statuses as of 08/02/2023) Immunizations Name Administration Dates Next Due Pneumococcal [...] encounter Miscellaneous Notes * Telephone Encounter - Astrid Kline LPN - 08/02/2023 8:36 AM EST Care Gaps Comprehensive Care Outreach Last Office/Telemedicine Visit: 05/19/2023 (in office), Visit date not found (telemedicine) Next Office Visit: 11/16/2023 Hemoglobin AIC Results: Lab Results Component Value Date/Time HEMOGLOBIN A1C - [facility] 5.6 12/06/2022 09:44 AM HEMOGLOBIN A1C - [facility] 5.8 (H) 04/22/2022 09:44 AM HEMOGLOBIN A1C - [facility] 5.7 (H) 03/17/2022 08:55 AM Reviewed Health Maintenance below: Health Maintenance Topic Date Due DISCUSS TOBACCO CESSATION (REFER TO SMARTSET #3291) Never done COVID-19 Vaccine (1) Never done CKD PHOS USE SMARTSET 86745 Never done Zoster Vaccines (1 of 2) Never done Colorectal Cancer Screening Never done LUNG CANCER SCREENING - USE SMARTSET 65713 Never done AAA Screening Never done Pneumococcal Vaccine: 65+ Years (2 - PCV) 01/12/2017 DTaP,Tdap,and Td Vaccines (2 - Td or Tdap) 10/01/2018 Depression Screening 04/04/2023 Influenza Vaccine (FLU shot) (1) Never done GFR 12/01/2023 HbA1c 12/07/2023 CKD HGB USE SMARTSET 26733 12/07/2023 Labs spring already ordered Aaa was sent a certified letter and declined Care Gap Outreach Action Taken: Outreach not indicated documented in this encounter Plan of Treatment Upcoming Encounters Date Type Department Care Team (Late st Contact Info) Description 11/16/2023 9:00 AM EDT Office Visit General Internal Medicine [facility] [address] [place] [address] Darian Lynne PA-C 200 [place] [address] Health Maintenance Due Date Last Done Comments DISCUSS TOBACCO CESSATION (REFER TO SMARTSET #3291) 1950 COVID-19 Vaccine (#1) 1955 CKD PHOS USE SMARTSET 13840 1969 Zoster Vaccines (1 of 2) 1970 Cologuard 1996 Colonoscopy 1996 Colorectal Cancer Screening 1996 Fecal Occult Blood Test 1996 Sigmoidoscopy 1996 LUNG CANCER SCREENING - USE SMARTSET 82388 2001 AAA Screening 2016 Pneumococcal Vaccine: 65+ Years (2 - PCV) 01/12/2017 01/13/2016 DTaP,Tdap,and Td Vaccines (2 - Td or Tdap) 10/01/2018 10/01/2008, 08/24/2001 Depression Screening 04/04/2023 04/04/2022 Influenza Vaccine (FLU shot) (#1) 2023 GFR 12/01/2023 06/01/2023, 12/26, 12/06/2022, Additional history exists CKD HGB USE SMARTSET 12913 12/07/202312/06, 12/06/2022, 05/17/2022, Additional history exists HbA1c [...] filedocumented as of this encounter Care Teams Physical Testing Supervisor Relationship Specialty Start Date End Date Trip Segundo MD [address] [place] [address] PCP - General Internal Medicine 12/22/17 documented as of this encounter
--- OUTSIDE RECORDS SUMMARY | 2023-12-10 16:32 | External Medical Summary ---
Author Name Unknown Address Unknown Organization K09:[facility] [place] [address] Laboratory Report Ordering Provider Test Date Status ARBEN SALOMON 11/21/2023 13:45:37 Final Observation Date Value Abnormality Reference (Units ) Status Magnesium 11/21/2023 13:45:37 2.1 1.5-2.6 (m g/dL) Final Performing Location [facility] [place] [address]
--- OUTSIDE RECORDS SUMMARY | 2023-12-10 16:33 | External Medical Summary | Summary of Care ---
Author Name Unknown Organization [facility] Address [address] [place] [address] Phone [phone] Care Team Providers Care Logistics Associate Name Role Phone Trip Segundo MD Primary Care Provider + Reason for Visit * Reason Comments eRx-Medication Refill Encounter Details Date Type Department Care Team (Late st Contact Info) Description 06/22/2023 Refill General Internal Medicine [facility] [address] [place] [address] Trip Segundo MD [address] [place] [address] NSVT (nonsustained ventricular tachycardia) ([facility]) Allergies Active Allergy Reactions Criticality Noted Date Comments Benztropine 11/02/2022 Severe confusion Quilcene Carbonate 10/04/2000 documented as of this encounter (statuses as of 06/23/2023) Medications Medication Sig Dispensed Refills Start Date End Date Status hydrOXYzine HCl 10 MG Oral Tablet (Atarax) 0 11/11/2021 Active Haloperidol Decanoate 100 MG/ML Intramuscular Solution Inject into a large muscle every 4 weeks . 0 Active Vitamin D3 Maximum Strength 125 MCG (5000 UT) Oral Capsule (Cholecalciferol)I ndications:Vitamin D deficiency Take by mouth 1 Capsule in the morning. 90 Capsule 1 02/24/2022 Active diphenhydrAMINE HCl 50 MG Oral TabletIndications: [...] a day. 180 Tablet 1 06/23/2023 Active Propranolol HCl 20 MG Oral Tablet (Inderal)Indicatio ns:NSVT (nonsustained ventricular tachycardia) (HCC) Take 1 tablet by mouth twice a day. 180 Tablet 0 11/02/2022 3 Discontinue d(Refill) documented as of this encounter (statuses as of 06/23/2023) Active Problems Problem Noted Date Diagnosed Date [...] as of this encounter (statuses as of 06/23/2023) Resolved Problems Problem Noted Date Diagnosed Date Resolved Date Leukemia 09/22/2015 12/25/2017 Overview: As a child Special screening for malign ant neoplasm of prostate 05/23/2013 09/22/2015 Illness 03/28/2013 09/22/2015 Overview: at [facility] Dementia 09/24/2021 documented as of this encounter (statuses as of 06/23/2023) Immunizations Name Administration Dates Next Due Pneumococcal [...] drink = 0.6 oz pur e alcohol) Sex and Gender Information Value Date Recorded Sex Assigned at Not on file Gender Identity Not on file Sexual Orientation Not on file Job Start Date Occupation Industry Not on file Not on file Not on file documented as of this encounter Miscellaneous Notes * Telephone Encounter - Lucia Gorman [facility] - 06/23/2023 7:30 AM EDTSigned Prescriptions: Disp Refills Propranolol HCl 20 MG Oral Tablet (Inderal)180 Ta*1 Sig: Take 1 tablet by mouth twice a day.Authorizing Provider: DARIAN CORNEJO User: LUCIA GORMANRefused Prescriptions: Disp Refills Propranolol HCl 20 MG Oral Tablet (Inderal)56 Tab*10 Sig: TAKE 1 TABLET BY MOUTH TWICE DAILY FOR HIGH BLOOD PRESSURERefused By: LUCIA GORMAN for Refusal: Duplicate Request documented in this encounter Plan of Treatment Upcoming Encounters Date Type Department Care Team (Late st Contact Info) Description 11/16/2023 9:00 AM EDT Office Visit General Internal Medicine Mariya Hendricks [place] [address] [place], [place] [id number] Darian Cornejo PA-C [address] [place] [id number] Health Maintenance Due Date Last Done Comments DISCUSS TOBACCO CESSATION (REFER TO SMARTSET #9420) 1951 COVID-19 Vaccine (#1) 1956 Zoster Vaccines (1 of 2) 1970 Cologuard 1996 Colonoscopy 1996 Colorectal Cancer Screening 1996 Fecal Occult Blood Test 1996 Sigmoidoscopy 1996 LUNG CANCER SCREENING - USE SMARTSET 81442 2001 AAA Screening 2016 Pneumococcal Vaccine: 65+ [...] as of this encounter Visit Diagnoses Diagnosis NSVT (nonsustained ventricular tachycardia) (HCC) Paroxysmal ventricular tachycardia documented in this encounter Care Teams Logistics Associate Relationship Specialty Start Date End Date Trip Segundo MD [address] [place] [address] PCP - General Internal Medicine 12/22/17 documented as of this encounter
--- NOTE | 2023-12-10 16:46 | Emergency Department Note ---
Impression & Plan Shortness of breath, Acute hypoxemic respiratory failure, Non-ST elevation SD (NSTEMI), Elevated brain natriuretic peptide (BNP) level, Acute exacerbation of chronic obstructive pulmonary disease ED Provider Note HISTORY OF PRESENT ILLNESS: Patient is a 73-year-old male presenting with shortness of breath. Patient reports has had progressively worsening shortness of breath for the last 3 to 4 weeks. He states that in the last 7 days his shortness of breath has gotten significantly worse. He did a home COVID test today which was positive. He has had a nonproductive cough. Reports intermittent episodes of chest pain. Denies any recent antibiotic or steroid use. He does not wear any supplemental oxygen at baseline. Denies any fevers. He reports he has been very wheezy in the last 24 hours. He denies any nausea or vomiting. Denies any DVT or PE history. He is not on any anticoagulation. ROS: as above PHYSICAL EXAM: Constitutional: Patient appears in no acute distress. HENT: Head: Normocephalic and atraumatic. Eyes: EOMI, PERRL Mouth/Throat: Mucous membranes moist. Neck: Trachea midline. Neck supple. Cardiovascular: Tachycardic with regular rhythm. No murmurs, rubs or gallops. Intact distal pulses. Pulmonary/Chest: No respiratory distress. Breath sounds clear and equal bilaterally. Expiratory wheezes. Abdominal: Abdomen soft, no tenderness, rebound or guarding. Musculoskeletal: No edema, tenderness or deformity noted. Skin: Warm and dry. No rash, erythema, pallor or cyanosis Psychiatric: Appropriate mood and affect for situation. Neurological: Alert and keenly responsive. CN II-XII grossly intact, moving all extremities equally and fully. MDM: - Vitals signs showed hypertension and tachycardia. - History obtained via patient. History as above. - Chronic conditions affecting care: COPD; schizophrenia; HTN; leukemia - Differential diagnoses include, but are not limited to: Congestive heart failure; acute coronary syndrome; COPD/asthma exacerbation; pulmonary edema; pulmonary embolism; pneumonia; pneumothorax; viral syndrome - Order placed for continuous cardiac monitoring. At this time, monitor showed rate of 95 bpm with normal sinus rhythm, per my interpretation. - External medical records reviewed. Discharge summary dated 10/31/2022 was reviewed. Patient was admitted at that time for acute alcohol intoxication and hyponatremia. - EKG interpreted by myself showed normal sinus rhythm. Rate tachycardic at 111 bpm. QT 336. No acute ischemic changes. - Laboratory workup interpreted by myself showed leukocytosis (WBC 11.49) with left shift; hyponatremia (Na 130); elevated troponin (32.9); elevated BNP (202) - CXR negative for pneumonia, per my interpretation - COVID/flu/RSV negative - VBG shows slight alkalosis - Patient given 60 mg IV solumedrol and duoneb treatment in ER. - Patient's saturations dropped to upper 80s on room air and he was started on 2L NC. - CT PE negative for PE. - Discussion was had with welfare case worker about patient's case and need for admission - Hospitalist consulted for admission - Patient admitted to [facility] for further evaluation and management. ASSESSMENT AND PLAN: Diagnosis: shortness of breath; acute hypoxic respiratory failure; NSTEMI; elevated BNP; acute COPD exacerbation Plan: admit Past Med/Surg History Medical History (Updated 12/10/23 @ 19:30 by Lucia Hendricks MD) Acute renal failure Nonadherence to medication Nicotine addiction Schizophrenia Dehydration Smoker Dementia Non-compliant patient BOSCH (dyspnea on exertion) History of leukemia NSVT (nonsustained ventricular tachycardia) IN SETTING OF INFLUENZA AUG 2017 - DECLINED TO SEE DENTIST/OWNER PER MEDICAL RECORD Schizophrenia Hypertension Chronic obstructive pulmonary disease Bronchitis Surgical History Hx of right cataract extraction History of tooth extraction Family History Other Family history non-contributory Social History Smoking Status: Unknown if ever smoked Tobacco Type: Cigarettes Cigarettes Per Day: 2ppd; Second Hand Exposure: No; Do You Dip or Chew Tobacco: No; Hx Alcohol Use: Yes Alcohol type: beer Hx Substance Use: No Preferred Language: Algerian Communication Ability: Impaired Dogman/Woman Required: No Beliefs That Will Affect Care: None Current Living Situation: Alone Current Living Situation Comment: was at [facility], signed self out Feels Safe at Home: Yes Assistive Devices: None Allergies Allergies Allergy/AdvReac Type Severity Reaction Status Date / Time lithium Allergy Unknown Verified 10/23/22 00:01 Home Meds Home Medications Medication Instructions Recorded Confirmed acetaminophen 500 mg tablet 1,000 mg PO Q6H PRN Pain 10/23/22 10/23/22 (Tylenol Extra Strength) benztropine 0.5 mg tablet 0.5 mg PO DIRECTED 10/23/22 10/23/22 cholecalciferol (vitamin D3) 125 125 mcg PO DAILY 10/23/22 10/23/22 mcg (5,000 unit) tablet (Vitamin D3) diphenhydramine HCl 25 mg tablet 25 mg PO BID PRN Insomnia 10/23/22 10/23/22 (Benadryl Allergy) haloperidol 5 mg tablet 5 mg PO BID 10/23/22 10/23/22 haloperidol decanoate 100 mg/mL 100 mg IM .[id number] 10/23/22 10/23/22 intramuscular solution hydroxyzine HCl 10 mg tablet 10 mg PO TID agitation 10/23/22 10/23/22 propranolol 20 mg tablet 20 mg PO BID 10/23/22 10/23/22 Previous Rx's Medication Instructions Recorded aspirin 81 mg tablet,delayed 81 mg PO QAM #60 tabs 10/31/22 release Results & Data (ED) Vital Signs Vital Signs - 24 hr 12/10/23 16:41 12/10/23 16:58 12/10/23 16:58 Temperature 37.1 C Temperature Source Oral Pulse Rate 113 H 105 H Pulse Rate [Apical] Respiratory Rate 24 Respiratory Effort / Characteristics Short of Breath Short of Breath Respiratory Depth Normal Normal Respiratory Pattern Regular Blood Pressure 166/121 H Blood Pressure [Right Arm] Blood Pressure Mean 136 Blood Pressure Mean [Right Arm] Blood Pressure Position Sitting Pulse Oximetry 94 Oxygen Delivery Method Room Air Room Air Oxygen Flow Rate Sepsis Recent Fever Within 48 Hours No Sepsis New/Unexplained Change in Mental Status No Sepsis Action Taken by Nursing Physician Notified Oxygen Flow Rate - Titration Pulse Oximetry Post Tiitration 12/10/23 16:58 12/10/23 16:58 12/10/23 16:58 Temperature Temperature Source Pulse Rate 105 H 118 H Pulse Rate [Apical] Respiratory Rate 24 18 Respiratory Effort / Characteristics Respiratory Depth Respiratory Pattern Blood Pressure 166/121 H Blood Pressure [Right Arm] Blood Pressure Mean 136 Blood Pressure Mean [Right Arm] Blood Pressure Position Pulse Oximetry 94 94 94 Oxygen Delivery Method Room Air Room Air Room Air Oxygen Flow Rate Sepsis Recent Fever Within 48 Hours Sepsis New/Unexplained Change in Mental Status Sepsis Action Taken by Nursing Oxygen Flow Rate - Titration Pulse Oximetry Post Tiitration 12/10/23 17:03 12/10/23 17:10 12/10/23 17:20 Temperature Temperature Source Pulse Rate 112 H 105 H 110 H Pulse Rate [Apical] Respiratory Rate 15 23 16 Respiratory Effort / Characteristics Respiratory Depth Respiratory Pattern Blood Pressure 159/102 H Blood Pressure [Right Arm] Blood Pressure Mean 121 Blood Pressure Mean [Right Arm] Blood Pressure Position Pulse Oximetry 93 92 92 Oxygen Delivery Method Room Air Room Air Room Air Oxygen Flow Rate Sepsis Recent Fever Within 48 Hours Sepsis New/Unexplained Change in Mental Status Sepsis Action Taken by Nursing Oxygen Flow Rate - Titration Pulse Oximetry Post Tiitration 12/10/23 17:30 12/10/23 17:39 12/10/23 17:40 Temperature Temperature Source Pulse Rate 94 H 95 H Pulse Rate [Apical] Respiratory Rate 17 20 Respiratory Effort / Characteristics Respiratory Depth Respiratory Pattern Blood Pressure Blood Pressure [Right Arm] Blood Pressure Mean Blood Pressure Mean [Right Arm] Blood Pressure Position Pulse Oximetry 88 L 88 L 94 Oxygen Delivery Method Room Air Room Air Nasal Cannula Nasal Cannula Oxygen Flow Rate 0 2 Sepsis Recent Fever Within 48 Hours Sepsis New/Unexplained Change in Mental Status Sepsis Action Taken by Nursing Oxygen Flow Rate - Titration 2 Pulse Oximetry Post Tiitration 94 12/10/23 18:20 12/10/23 18:30 12/10/23 19:21 Temperature Temperature Source Pulse Rate 98 H 94 H Pulse Rate [Apical] 101 H Respiratory Rate 15 17 21 Respiratory Effort / Characteristics Respiratory Depth Respiratory Pattern Blood Pressure Blood Pressure [Right Arm] 163/122 H Blood Pressure Mean Blood Pressure Mean [Right Arm] 135 Blood Pressure Position Pulse Oximetry 92 94 92 Oxygen Delivery Method Nasal Cannula Nasal Cannula Nasal Cannula Oxygen Flow Rate 2 2 2 Sepsis Recent Fever Within 48 Hours Sepsis New/Unexplained Change in Mental Status Sepsis Action Taken by Nursing Oxygen Flow Rate - Titration Pulse Oximetry Post Tiitration Laboratory Data 12/10/23 16:40 12/10/23 16:40 Lab Results 12/10/23 12/10/23 12/10/23 Range/Units 16:40 19:17 Unknown WBC 11.49 H (4.8-10.8) K/ul RBC 5.16 (4.70-6.10) M/uL Hgb 14.5 (14.0-18.0) g/dl Hct 43.4 (42.0-52.0) % MCV 84.1 (80.0-100.0) fL MCH 28.1 (25.0-34.0) pg MCHC 33.4 (32.0-36.0) g/dL RDW Std Deviation 42.4 (36.4-46.3) fL RDW Coeff of Demond 13.8 (11.5-14.5) % Plt Count 234 (130-400) K/uL MPV 10.9 (9.4-12.4) fL Immature Gran % (Auto) 0.5 % Neut % (Auto) 82.4 % Lymph % (Auto) 4.2 % Howell % (Auto) 12.2 % Eos % (Auto) 0.2 % Baso % (Auto) 0.5 % Neut # (Auto) 9.47 H (1.40-6.50) K/uL Lymph # (Auto) 0.48 L (1.20-3.40) K/uL Howell # (Auto) 1.40 H (0.11-0.59) K/uL Eos # (Auto) 0.02 (0.00-0.50) K/uL Baso # (Auto) 0.06 (0.00-0.20) K/uL Immature Gran # (Auto) 0.06 (0.01-0.20) K/uL PT 11.4 (9.0-12.0) Seconds INR 1.0 (0.9-1.1) VBG pH 7.48 H (7.36-7.41) VBG pCO2 34 L (38-50) mmHg VBG pO2 63 mmHg VBG HCO3 25 mmol/L VBG O2 Saturation 92.6 % VBG Base Excess 2.2 mEq/L Sodium 130 L (136-145) mmol/L Potassium 4.0 (3.5-5.1) mmol/L Chloride 98 (98-107) mmol/L Carbon Dioxide 23 (21-32) mmol/L Anion Gap 9 (3-11) BUN 23 (6-23) mg/dl Creatinine 1.40 (0.6-1.4) mg/dl Est Cr Clr Drug Dosing 50.9 ml/min Est GFR ( Amer) 57.8 ml/min Est GFR (Non-Af Amer) 49.8 ml/min BUN/Creatinine Ratio 16.4 (10-20) Glucose 128 H (70-99(Fasting)) mg/dl Calcium 9.4 (8.6-10.3) mg/dl Magnesium 1.7 (1.7-2.4) mg/dl Total Bilirubin 1.1 H (0.2-1.0) mg/dl AST 22 (13-39) U/L ALT 11 (7-52) U/L Alkaline Phosphatase 56 (34-104) U/L Troponin I High Sens 32.9 H (0-20) pg/ml B-Natriuretic Peptide 202 H (0-100) pg/ml Total Protein 7.0 (6.0-8.3) gm/dl Albumin 4.4 (3.4-5.0) gm/dl Globulin 2.6 (2.5-4.0) gm/dl Albumin/Globulin Ratio 1.7 (0.9-2) Urine Color Yellow Urine Appearance Clear (Clear) Urine pH 6.5 (4.5-7.5) Ur Specific [place] 1.015 (1.000-1.030) Urine Protein Negative (Negative) Urine Glucose (UA) Negative (Negative) Urine Ketones Negative (Negative) Urine Blood Negative (Negative) Urine Nitrite Negative (Negative) Urine Bilirubin Negative (Negative) Urine Urobilinogen Negative (Negative) Ur Leukocyte Esterase Negative (Negative) SARS-CoV-2 (PCR) POSITIVE (Negative) Influenza Type A (PCR) Negative (Neg) Influenza Type B (PCR) Negative (Neg) RSV (RT-PCR) Negative (Neg) Administered Medications Discontinued Medications Albuterol (Albut/Ipratrop 3mg/0.5mg Neb 3 Ml Vial) 3 ml NEB NOW STA; Protocol Stop: 12/10/23 18:21 Last Admin: 12/10/23 18:32 Dose: 3 ml Documented By: CPB Sodium Chloride (Nss) 1,000 mls @ 999 mls/hr IV .Q1H1M ONE Stop: 12/10/23 18:36 Last Infusion: 12/10/23 18:56 Dose: Infused Documented By: Admin: 12/10/23 17:45 Dose: 999 mls/hr Documented By: CPB Ioversol (Optiray 320 125ml) 119 ml IV ONCE ONE Stop: 12/10/23 19:04 Last Admin: 12/10/23 19:03 Dose: 119 ml Documented By: TIOK Methylprednisolone (Methylprednisolone 125 Mg/2 Ml Vial) 60 mg IV NOW STA Stop: 12/10/23 16:47 Last Admin: 12/10/23 16:53 Dose: 60 mg Documented By: CPB Imaging Data Radiologist's Impression: Chest X-Ray 12/10/23 16:29 XR chest 1V portable HISTORY: 73 years-old Male Dyspnea acute shortness of breath COMPARISON: 10/25/2022 TECHNIQUE: AP view the chest FINDINGS: Cardiomediastinal and hilar silhouettes are unchanged. No pneumothorax, pleural effusion or overt pulmonary edema. Chronic interstitial coarsening of the lung bases. Bones appear grossly intact. IMPRESSION: No acute process. ACT 112: Negative or not required by law. The above report was generated using voice recognition software. It may contain grammatical, syntax or spelling errors. Electronically signed by: Victorino Urban M.D. 12/10/2023 4:58 PM Chest CTA 12/10/23 17:57 CT angio chest PE protocol CT DOSE: 760.94 mGy.cm HISTORY: 73 years-old Male with PE; SOB; hypoxia. Acute shortness of breath with hypoxia TECHNIQUE: Multiple CTA images of the chest were obtained after the intravenous administration of 119 ml Optiray. Coronal and sagittal MIPS were obtained from the axial data set and were submitted for review. All measurements were obtained according to NASCET criteria. A dose lowering technique was utilized adhering to the principles of ALARA. COMPARISON: Chest radiograph of same day, CTA chest 09/15/2017 FINDINGS: CTA: Heart is normal in size. No pericardial effusion. Moderate coronary artery calcifications. No thoracic aortic aneurysm or dissection. Unremarkable pulmonary artery. No pulmonary emboli identified. CT CHEST: Unremarkable thyroid. No lymphadenopathy. No pneumothorax, pleural effusion, airspace consolidation or pulmonary edema. Advanced pulmonary emphysema with bronchial wall thickening. Mild linear left upper lobe scarring. 9 mm right hilar lymph node, likely physiologic. Small hiatal hernia with distal esophageal wall thickening. Calcified granulomata of the spleen. Unremarkable soft tissues. Chronic left-sided rib fractures. No acute fracture. IMPRESSION: 1. No pulmonary emboli. 2. Emphysema with bronchitis. 3. No pleural effusion or airspace consolidation typical for pneumonia. 4. Small hiatal hernia. ACT 112: Negative or not required by law. The above report was generated using voice recognition software. It may contain grammatical, syntax or spelling errors. Electronically signed by: Victorino Urban M.D. 12/10/2023 7:25 PM Discharge Plan Visit Data Chief Complaint: Shortness of Breath/Dyspnea Stated Complaint: SOB, ED Provider: Lucia Hendrikcs Discharge Problem: Shortness of breath, Acute hypoxemic respiratory failure, Non-ST elevation SD (NSTEMI), Elevated brain natriuretic peptide (BNP) level, Acute exacerbation of chronic obstructive pulmonary disease Forms Stand Alone Forms: [facility] [place] [employer] Prescriptions Prescriptions: No Action benztropine 0.5 mg tablet 0.5 mg PO DIRECTED haloperidol 5 mg tablet 5 mg PO BID haloperidol decanoate 100 mg/mL Solution 100 mg IM .[id number] acetaminophen [Tylenol Extra Strength] 500 mg Tablet 1,000 mg PO Q6H PRN (Reason: Pain) diphenhydramine HCl [Benadryl Allergy] 25 mg Tablet 25 mg PO BID PRN (Reason: Insomnia) propranolol 20 mg tablet 20 mg PO BID hydroxyzine HCl 10 mg tablet 10 mg PO TID cholecalciferol (vitamin D3) [Vitamin D3] 125 mcg (5,000 unit) Tablet 125 mcg PO DAILY aspirin 81 mg Tablet,Delayed Release (Dr/Ec) 81 mg PO QAM Qty: 60 0RF Referrals Referrals: Trip Segundo MD [Outside Practitioners] -
[2023-12-10] MEDS: methylPREDNISolone 125 MG/2 ML VIAL IV STA (16:53)
--- NOTE | 2023-12-10 16:59 | XRay Report ---
XR chest 1V portable HISTORY: 73 years-old Male Dyspnea acute shortness of breath COMPARISON: 10/25/2022 TECHNIQUE: AP view the chest FINDINGS: Cardiomediastinal and hilar silhouettes are unchanged. No pneumothorax, pleural effusion or overt pul monary edema. Chronic interstitial coarsening of the lung bases. Bones appear grossly intact. IMPRESSION: No acute process. ACT 112: Negative or not required by law. The above report was generated using voice recognition software. It may contain grammatical, syntax o r spelling errors. Electronically signed by: Victorino Urban M.D. 12/10/2023 4:58 PM
[2023-12-10 17:05] LABS: Base Excess VBG 2.2 mEq/L; HCO3 VBG 25 mmol/L; Oxygen Saturation VBG 92.6 %; PCO2 VBG 34 mmHg (38-50); PO2 VBG 63 mmHg; pH VBG 7.48 (7.36-7.41)
[2023-12-10 17:12] LABS: Basophils # (auto) 0.06 K/uL (0.00-0.20); Basophils % (auto) 0.5 %; Eosinophils # (auto) 0.02 K/uL (0.00-0.50); Eosinophils % (auto) 0.2 %; Hematocrit (blood only) 43.4 % (42.0-52.0); Hemoglobin 14.5 g/dl (14.0-18.0); Immature Granulocytes # (auto) 0.06 K/uL (0.01-0.20); Immature Granulocytes % (auto) 0.5 %; Lymphocytes # (auto) 0.48 K/uL (1.20-3.40); Lymphocytes % (auto) 4.2 %; Mean Corpuscular Hemoglobin 28.1 pg (25.0-34.0); Mean Corpuscular Hgb Conc 33.4 g/dL (32.0-36.0); Mean Corpuscular Volume 84.1 fL (80.0-100.0); Mean Platelet Volume 10.9 fL (9.4-12.4); Monocytes % (auto) 12.2 %; Neutrophils # (auto) 9.47 K/uL (1.40-6.50); Neutrophils % (auto) 82.4 %; Platelet Count 234 K/uL (130-400); RDW Coefficient of Variation 13.8 % (11.5-14.5); RDW Standard Deviation 42.4 fL (36.4-46.3); Red Blood Count 5.16 M/uL (4.70-6.10); White Blood Count 11.49 K/ul (4.8-10.8)
[2023-12-10 17:24] LABS: Albumin Globulin Ratio 1.7 (0.9-2); Albumin Level 4.4 gm/dl (3.4-5.0); BUN Creatinine Ratio 16.4 (10-20); Bilirubin,Total 1.1 mg/dl (0.2-1.0); Calcium 9.4 mg/dl (8.6-10.3); Creatinine Clr Calc Pharmacy 50.9 ml/min; Est GFR (African American) 57.8 ml/min; Est GFR (Non-African American) 49.8 ml/min; Globulin 2.6 gm/dl (2.5-4.0); Magnesium 1.7 mg/dl (1.7-2.4)
[2023-12-10 17:31] LABS: Troponin I High Sensitivity 32.9 pg/ml (0-20)
[2023-12-10 17:34] LABS: Prothrombin Time 11.4 Seconds (9.0-12.0)
[2023-12-10] MEDS: SODIUM CHLORIDE 0.9% 1,000 ML IV ONE (17:45)
[2023-12-10 17:49] LABS: Influenza A virus by PCR Negative (Neg); Influenza B virus by PCR Negative (Neg); RSV by PCR Negative (Neg); SARS CoV2 RNA(COVID-19) Ceph POSITIVE (Negative)
[2023-12-10] MEDS: ALBUT/IPRATROP 3MG/0.5MG NEB 3 ML VIAL NEB STA (18:32)
[2023-12-10] MEDS: OPTIRAY 320 125ml IV ONE (19:03)
--- NOTE | 2023-12-10 19:27 | CT Scan Report ---
CT angio chest PE protocol CT DOSE: 760.94 mGy.cm HISTORY: 73 years-old Male with PE; SOB; hypoxia. Acute shortness of breath with hypoxia TECHNIQUE: Multiple CTA images of the chest were obtained after the intravenous administration of 119 ml Optiray. Coronal and sagittal MIPS were obtained from the axial data set and were submitted for review. All measurements were obtained according to NASCET criteria. A dose lowering technique was u tilized adhering to the principles of ALARA. COMPARISON: Chest radiograph of same day, CTA chest 09/15/2017 FINDINGS: CTA: Heart is normal in size. No pericardial effusion. Moderate coronary artery calcifications. No thoraci c aortic aneurysm or dissection. Unremarkable pulmonary artery. No pulmonary emboli identified. CT CHEST: Unremarkable thyroid. No lymphadenopathy. No pneumothorax, pleural effusion, airspace consolidation o r pulmonary edema. Advanced pulmonary emphysema with bronchial wall thickening. Mild linear left uppe r lobe scarring. 9 mm right hilar lymph node, likely physiologic. Small hiatal hernia with distal esophageal wall thickening. Calcified granulomata of the spleen. Unre markable soft tissues. Chronic left-sided rib fractures. No acute fracture. IMPRESSION: 1. No pulmonary emboli. 2. Emphysema with bronchitis. 3. No pleural effusion or airspace consolidation typical for pneumonia. 4. Small hiatal hernia. ACT 112: Negative or not required by law. The above report was generated using voice recognition software. It may contain grammatical, syntax o r spelling errors. Electronically signed by: Victorino Urban M.D. 12/10/2023 7:25 PM
[2023-12-10 19:29] LABS: Appearance Urine Clear (Clear); Bilirubin Urine Negative (Negative); Blood Urine Negative (Negative); Color Urine Yellow; Glucose Urine UA Negative (Negative); Ketones Urine Negative (Negative); Leukocyte Esterase Urine Negative (Negative); Nitrite Urine Negative (Negative); Protein Urine Negative (Negative); Specific Gravity Urine 1.015 (1.000-1.030); Urobilinogen Urine Negative (Negative); pH Urine 6.5 (4.5-7.5)
--- NOTE | 2023-12-10 22:17 | History & Physical Report ---
Date of Service December 10, 2023 Assessment & Plan (1) Acute exacerbation of chronic obstructive pulmonary disease: Plan: 73-year-old male with past med history significant for hypertension, nonsustained V. tach, COPD, prediabetes, childhood leukemia status posttr eatment, schizophrenia, mood disorder, ongoing tobacco abuse smoking 2 packs/day, history of psychosis comes because shortness of breath. Patient states he has cough and shortness of breath going on for last 4 weeks. Last couple days he is feeling feverish. And he was tested positive COVID today and came here. He was saturating 88% room air on 2 L he saturating okay. Denies any headache. Denies any body ache. Feeling weak. Appetite is okay. No difficulty swallowing. Currently no sore throat. Denies any chest pain. No nausea. No abdominal pain. Normal bowel and bladder movements. Somewhat slow to answer. COPD exacerbation Ongoing tobacco abuse COVID-positive IV steroid, nebs [id number] and as needed Continue oxygen supplementation Close monitor COVID Requiring oxygen Dont know exactly when symptoms started Empirically on remdesivir and Decadron and follow COVID labs COVID precautions Close monitor History of hypertension Propranolol Will monitor Schizophrenia Mood disorder Continue home medications Hyperlipidemia On statin History of nonsustained V. tach On propranolol Hyponatremia Sodium 130 Last admission he was requiring salt tablets Will follow the labs Tobacco abuse Needs counseling DVT prophylaxis Lovenox Disposition Telemetry Full code History of Present Illness Chief Complaint: Shortness of breath Primary Care Provider: [facility] 73-year-old male with past med history significant for hypertension, nonsustained V. tach, COPD, prediabetes, childhood leukemia status posttreatment, schizophrenia, mood disorder, ongoing tobacco abuse smoking 2 packs/day, history of psychosis comes because shortness of breath. Patient states he has cough and shortness of breath going on for last 4 weeks. Last couple days he is feeling feverish. And he was tested positive COVID today and came here. He was saturating 88% room air on 2 L he saturating okay. Denies any headache. Denies any body ache. Feeling weak. Appetite is okay. No difficulty swallowing. Currently no sore throat. Denies any chest pain. No nausea. No abdominal pain. Normal bowel and bladder movements. Somewhat slow to answer. Past medical history. As mentioned above Past surgical history. Dental surgery. Social history. Smokes 2 packs cigarettes daily for last 15 years. No alcohol use. Used LSD as teen. Family history. Hypertension Allergies Allergy/AdvReac Type Severity Reaction Status Date / Time lithium Allergy Unknown Verified 12/10/23 19:47 Home Medications Medication Instructions Recorded Confirmed Type acetaminophen 500 mg tablet 1,000 mg PO Q8 PRN Fever Or Pain 10/23/22 12/10/23 History (Tylenol Extra Strength) cholecalciferol (vitamin D3) 125 125 mcg PO DAILY 10/23/22 12/10/23 History mcg (5,000 unit) tablet (Vitamin D3) diphenhydramine HCl 25 mg tablet 25 mg PO BID PRN Insomnia 10/23/22 12/10/23 History (Benadryl Allergy) haloperidol 5 mg tablet 5 mg PO BID 10/23/22 12/10/23 History haloperidol decanoate 100 mg/mL 100 mg IM .[id number] 10/23/22 12/10/23 History intramuscular solution propranolol 20 mg tablet 20 mg PO BID 10/23/22 12/10/23 History aspirin 81 mg chewable tablet 81 mg PO DAILY 12/10/23 12/10/23 History (Children's Aspirin) atorvastatin 20 mg tablet 20 mg PO HS 12/10/23 12/10/23 History fluoxetine 40 mg capsule 40 mg PO DAILY 12/10/23 12/10/23 History hydroxyzine HCl 10 mg tablet 10 mg PO TID 12/10/23 12/10/23 History lorazepam 0.5 mg tablet 0.5 mg PO HS 12/10/23 12/10/23 History methylphenidate HCl 10 mg tablet 10 mg PO BID 12/10/23 12/10/23 History pantoprazole 40 mg tablet,delayed 40 mg PO DAILY 12/10/23 12/10/23 History release Past Med/Surg History Medical History (Updated 12/10/23 @ 19:30 by Lucia Hendricks MD) Acute renal failure Nonadherence to medication Nicotine addiction Schizophrenia Dehydration Smoker Dementia Non-compliant patient BOSCH (dyspnea on exertion) History of leukemia NSVT (nonsustained ventricular tachycardia) IN SETTING OF INFLUENZA AUG 2017 - 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 Schizophrenia Hypertension Chronic obstructive pulmonary disease Bronchitis Surgical History Hx of right cataract extraction History of tooth extraction Family History Other Family history non-contributory Social History Smoking Status: Current every day smoker Tobacco Type: Cigarettes Cigarettes Per Day: 2-3 ppd; Second Hand Exposure: No; Do You Dip or Chew Tobacco: No; Hx Alcohol Use: No Hx Substance Use: No Preferred Language: Irish Communication Ability: 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 Lungs- clear to auscultation mild b/l rhonchi Heart- regular rhythm; no murmur, no gallop. Abdomen- normal bowel sounds, soft, nontender, no distension. Extremities- no pretibial edema, no erythema seen. Neuro- alert, oriented slow to answer; PERRL, no facial palsy; no dysarthria; obeys simple commands Results & Data Results & Data Vital Signs (Past 12 Hours) Vital Signs Temp Pulse Pulse Resp BP BP Pulse Ox 12/10/23 22:00 90 19 181/99 H 95 12/10/23 21:05 90 20 164/107 H 93 12/10/23 20:37 90 12/10/23 19:21 101 H 21 163/122 H 92 12/10/23 18:30 94 H 17 94 12/10/23 18:20 98 H 15 92 12/10/23 17:40 95 H 20 94 12/10/23 17:39 88 L 12/10/23 17:30 94 H 17 88 L 12/10/23 17:20 110 H 16 92 12/10/23 17:10 105 H 23 92 12/10/23 17:03 112 H 15 159/102 H 93 12/10/23 16:58 118 H 18 166/121 H 94 12/10/23 16:58 105 H 24 94 12/10/23 16:58 94 12/10/23 16:58 12/10/23 16:58 37.1 C 105 H 24 166/121 H 94 12/10/23 16:41 113 H O2 Del Method O2 Flow Rate 12/10/23 22:00 Nasal Cannula 2 12/10/23 21:05 Nasal Cannula 2 12/10/23 20:37 12/10/23 19:21 Nasal Cannula 2 12/10/23 18:30 Nasal Cannula 2 12/10/23 18:20 Nasal Cannula 2 12/10/23 17:40 Nasal Cannula 2 12/10/23 17:39 Room Air, Nasal Cannula 0 12/10/23 17:30 Room Air 12/10/23 17:20 Room Air 12/10/23 17:10 Room Air 12/10/23 17:03 Room Air 12/10/23 16:58 Room Air 12/10/23 16:58 Room Air 12/10/23 16:58 Room Air 12/10/23 16:58 Room Air 12/10/23 16:58 Room Air 12/10/23 16:41 Diagnostic Findings Laboratory Results WBC 11.49 K/ul (4.8-10.8) H 12/10/23 16:40 RBC 5.16 M/uL (4.70-6.10) 12/10/23 16:40 Hgb 14.5 g/dl (14.0-18.0) 12/10/23 16:40 Hct 43.4 % (42.0-52.0) 12/10/23 16:40 MCV 84.1 fL (80.0-100.0) 12/10/23 16:40 MCH 28.1 pg (25.0-34.0) 12/10/23 16:40 MCHC 33.4 g/dL (32.0-36.0) 12/10/23 16:40 RDW Std Deviation 42.4 fL (36.4-46.3) 12/10/23 16:40 RDW Coeff of Demond 13.8 % (11.5-14.5) 12/10/23 16:40 Plt Count 234 K/uL (130-400) 12/10/23 16:40 MPV 10.9 fL (9.4-12.4) 12/10/23 16:40 Immature Gran % (Auto) 0.5 % 12/10/23 16:40 Neut % (Auto) 82.4 % 12/10/23 16:40 Lymph % (Auto) 4.2 % 12/10/23 16:40 [place] % (Auto) 12.2 % 12/10/23 16:40 Eos % (Auto) 0.2 % 12/10/23 16:40 Baso % (Auto) 0.5 % 12/10/23 16:40 Neut # (Auto) 9.47 K/uL (1.40-6.50) H 12/10/23 16:40 Lymph # (Auto) 0.48 K/uL (1.20-3.40) L 12/10/23 16:40 [place] # (Auto) 1.40 K/uL (0.11-0.59) H 12/10/23 16:40 Eos # (Auto) 0.02 K/uL (0.00-0.50) 12/10/23 16:40 Baso # (Auto) 0.06 K/uL (0.00-0.20) 12/10/23 16:40 Immature Gran # (Auto) 0.06 K/uL (0.01-0.20) 12/10/23 16:40 PT 11.4 Seconds (9.0-12.0) 12/10/23 16:40 INR 1.0 (0.9-1.1) 12/10/23 16:40 VBG pH 7.48 (7.36-7.41) H 12/10/23 16:40 VBG pCO2 34 mmHg (38-50) L 12/10/23 16:40 VBG pO2 63 mmHg 12/10/23 16:40 VBG HCO3 25 mmol/L 12/10/23 16:40 VBG O2 Saturation 92.6 % 12/10/23 16:40 VBG Base Excess 2.2 mEq/L 12/10/23 16:40 Sodium 130 mmol/L (136-145) L 12/10/23 16:40 Potassium 4.0 mmol/L (3.5-5.1) 12/10/23 16:40 Chloride 98 mmol/L (98-107) 12/10/23 16:40 Carbon Dioxide 23 mmol/L (21-32) 12/10/23 16:40 Anion Gap 9 (3-11) 12/10/23 16:40 BUN 23 mg/dl (6-23) 12/10/23 16:40 Creatinine 1.40 mg/dl (0.6-1.4) 12/10/23 16:40 Est Cr Clr Drug Dosing 50.9 ml/min 12/10/23 16:40 Est GFR ( Amer) 57.8 ml/min 12/10/23 16:40 Est GFR (Non-Af Amer) 49.8 ml/min 12/10/23 16:40 BUN/Creatinine Ratio 16.4 (10-20) 12/10/23 16:40 Glucose 128 mg/dl (70-99(Fasting)) H 12/10/23 16:40 Calcium 9.4 mg/dl (8.6-10.3) 12/10/23 16:40 Magnesium 1.7 mg/dl (1.7-2.4) 12/10/23 16:40 Total Bilirubin 1.1 mg/dl (0.2-1.0) H 12/10/23 16:40 AST 22 U/L (13-39) 12/10/23 16:40 ALT 11 U/L (7-52) 12/10/23 16:40 Alkaline Phosphatase 56 U/L (34-104) 12/10/23 16:40 Troponin I High Sens 31.7 pg/ml (0-20) H 12/10/23 20:15 B-Natriuretic Peptide 202 pg/ml (0-100) H 12/10/23 16:40 Total Protein 7.0 gm/dl (6.0-8.3) 12/10/23 16:40 Albumin 4.4 gm/dl (3.4-5.0) 12/10/23 16:40 Globulin 2.6 gm/dl (2.5-4.0) 12/10/23 16:40 Albumin/Globulin Ratio 1.7 (0.9-2) 12/10/23 16:40 Urine Color Yellow 12/10/23 19:17 Urine Appearance Clear (Clear) 12/10/23 19:17 Urine pH 6.5 (4.5-7.5) 12/10/23 19:17 Ur Specific [place] 1.015 (1.000-1.030) 12/10/23 19:17 Urine Protein Negative (Negative) 12/10/23 19:17 Urine Glucose (UA) Negative (Negative) 12/10/23 19:17 Urine Ketones Negative (Negative) 12/10/23 19:17 Urine Blood Negative (Negative) 12/10/23 19:17 Urine Nitrite Negative (Negative) 12/10/23 19:17 Urine Bilirubin Negative (Negative) 12/10/23 19:17 Urine Urobilinogen Negative (Negative) 12/10/23 19:17 Ur Leukocyte Esterase Negative (Negative) 12/10/23 19:17 SARS-CoV-2 (PCR) POSITIVE (Negative) 12/10/23 Unknown Influenza Type A (PCR) Negative (Neg) 12/10/23 Unknown Influenza Type B (PCR) Negative (Neg) 12/10/23 Unknown RSV (RT-PCR) Negative (Neg) 12/10/23 Unknown Impressions Chest X-Ray 12/10/23 16:29 XR chest 1V portable HISTORY: 73 years-old Male Dyspnea acute shortness of breath COMPARISON: 10/25/2022 TECHNIQUE: AP view the chest FINDINGS: Cardiomediastinal and hilar silhouettes are unchanged. No pneumothorax, pleural effusion or overt pulmonary edema. Chronic interstitial coarsening of the lung bases. Bones appear grossly intact. IMPRESSION: No acute process. ACT 112: Negative or not required by law. The above report was generated using voice recognition software. It may contain grammatical, syntax or spelling errors. Electronically signed by: Victorino Urban M.D. 12/10/2023 4:58 PM Chest CTA 12/10/23 17:57 CT angio chest PE protocol CT DOSE: 760.94 mGy.cm HISTORY: 73 years-old Male with PE; SOB; hypoxia. Acute shortness of breath with hypoxia TECHNIQUE: Multiple CTA images of the chest were obtained after the intravenous administration of 119 ml Optiray. Coronal and sagittal MIPS were obtained from the axial data set and were submitted for review. All measurements were obtained according to NASCET criteria. A dose lowering technique was utilized ad kori to the principles of ALARA. COMPARISON: Chest radiograph of same day, CTA chest 09/15/2017 FINDINGS: CTA: Heart is normal in size. No pericardial effusion. Moderate coronary artery calc ifications. No thoracic aortic aneurysm or dissection. Unremarkable pulmonary artery. No pulmonary emboli identified. CT CHEST: Unremarkable thyroid. No lymphadenopathy. No pneumothorax, pleural effusion, airspace consolidation or pulmonary edema. Advanced pulmonary emphysema with bronchial wall thickening. Mild linear left upper lobe scarring. 9 mm right hilar lymph node, likely physiologic. Small hiatal hernia with distal esophageal wall thickening. Calcified granulomata of the spleen. Unremarkable soft tissues. Chronic left-sided rib fractures. No acute fracture. IMPRESSION: 1. No pulmonary emboli. 2. Emphysema with bronchitis. 3. No pleural effusion or airspace consolidation typical for pneumonia. 4. Small hiatal hernia. ACT 112: Negative or not required by law. The above report was generated using voice recognition software. It may contain grammatical, syntax or spelling errors. Electronically signed by: Victorino Urban M.D. 12/10/2023 7:25 PM ECG Additional Comments: ECG. Sinus tachycardia with PACs rate of 111. Nonspecific T wave abnormalities. ST depressions in inferior leads. Code Status & VTE Plan VTE Prophylaxis Plan VTE Prophylaxis will be ordered: Yes
[2023-12-10] MEDS ORDERED: NITROGLYCERIN SL 0.4 MG/TAB TAB SL PRN (22:54)
[2023-12-10] MEDS ORDERED: ACETAMINOPHEN 325 MG TAB PO PRN (22:54)
[2023-12-10] MEDS ORDERED: ALBUT/IPRATROP 3MG/0.5MG NEB 3 ML VIAL NEB PRN (22:54)
[2023-12-10] MEDS ORDERED: ONDANSETRON INJ 2 MG/ML 2 ML VIAL IV PRN (22:54)
[2023-12-10] MEDS ORDERED: diphenhydrAMINE Capsule 25 MG CAP PO PRN (23:07)
[2023-12-10] MEDS: ENOXAPARIN INJ 40 MG/0.4 ML SYR SQ SCH (23:46)
[2023-12-10] MEDS: LORazepam 0.5 MG TAB PO SCH (23:46)
[2023-12-10] MEDS: REMDESIVIR 200 MG in SODIUM CHLORIDE 0.9% 210 ML IV STA (23:46)
[2023-12-10] MEDS: METHYLPHENIDATE HCL 10 MG TABLET PO SCH (23:46)
[2023-12-10] MEDS: hydrOXYzine HCl 10 MG TAB PO SCH (23:50)
[2023-12-10] MEDS: ATORVASTATIN 20 MG TAB PO SCH (23:50)
[2023-12-10] MEDS: haloperidoL 5 MG TAB PO SCH (23:50)
[2023-12-10] MEDS: PROPRANOLOL HCL 20 MG TAB PO SCH (23:51)
[2023-12-11] MEDS: CHOLECALCIFEROL 125 MCG (5,000 UNITS) TAB PO SCH (07:10)
[2023-12-11] MEDS: ASPIRIN 81 MG CHEW PO SCH (07:10)
[2023-12-11] MEDS: FLUoxetine HCL 20 MG CAP PO SCH (07:11)
[2023-12-11] MEDS: PANTOprazole 40 MG TAB PO SCH (07:11)
[2023-12-11] MEDS: dexAMETHasone 6 MG in SYRINGE 0 ML IV SCH (07:12)
[2023-12-11 07:49] LABS: Basophils # (auto) 0.01 K/uL (0.00-0.20); Basophils % (auto) 0.1 %; Hematocrit (blood only) 41.7 % (42.0-52.0); Immature Granulocytes # (auto) 0.03 K/uL (0.01-0.20); Immature Granulocytes % (auto) 0.4 %; Lymphocytes % (auto) 6.4 %; Mean Corpuscular Hemoglobin 28.3 pg (25.0-34.0); Mean Corpuscular Hgb Conc 33.6 g/dL (32.0-36.0); Mean Corpuscular Volume 84.2 fL (80.0-100.0); Mean Platelet Volume 11.2 fL (9.4-12.4); Monocytes # (auto) 0.58 K/uL (0.11-0.59); Monocytes % (auto) 7.4 %; Neutrophils # (auto) 6.68 K/uL (1.40-6.50); Neutrophils % (auto) 85.7 %; Platelet Count 223 K/uL (130-400); RDW Coefficient of Variation 14.1 % (11.5-14.5); RDW Standard Deviation 43.3 fL (36.4-46.3); Red Blood Count 4.95 M/uL (4.70-6.10)
[2023-12-11] MEDS: ALBUT/IPRATROP 3MG/0.5MG NEB 3 ML VIAL NEB SCH (07:49)
[2023-12-11] MEDS ORDERED: PNEUMOCOCCAL VACCINE (PCV20) 20-VAL CONJ-DIP CRM/PF 0.5 ML SYR IM ONE (08:00)
[2023-12-11 08:06] LABS: BUN Creatinine Ratio 17.8 (10-20); Calcium 9.1 mg/dl (8.6-10.3); Creatinine Clr Calc Pharmacy 53.6 ml/min; Est GFR (African American) 63.8 ml/min; Magnesium 1.9 mg/dl (1.7-2.4); Potassium 4.4 mmol/L (3.5-5.1)
[2023-12-11 08:15] LABS: Troponin I High Sensitivity 18.6 pg/ml (0-20)
--- NOTE | 2023-12-11 08:44 | Electrocardiogram Report ---
Test Reason : Blood Pressure : / mmHG Vent. Rate : 111 BPM Atrial Rate : 111 BPM P-R Int : 128 ms QRS Dur : 084 ms QT Int : 336 ms P-R-T Axes : 056 -12 019 degrees QTc Int : 456 ms Sinus tachycardia with Premature atrial complexes Nonspecific ST and T wave abnormality Abnormal ECG When compared with ECG of 23-OCT-2022 05:20, Premature atrial complexes are now Present Vent. rate has increased BY [address] now depressed in Inferior leads Nonspecific T wave abnormality now evident in Inferior leads Nonspecific T wave abnormality no longer evident in Lateral leads Confirmed by Alfie Vargas ([id number]) on 12/11/2023 8:44:13 AM Referred By: [facility] Confirmed By:Jose Vargas
[2023-12-11] MEDS: METHYLPHENIDATE HCL 10 MG TABLET PO SCH (13:52)
--- NOTE | 2023-12-11 13:53 | Hospitalist Progress Note ---
Date of Service December 11, 2023 Assessment & Plan (1) Acute exacerbation of chronic obstructive pulmonary disease: Plan: 73-year-old male with past med history significant for hypertension, nonsustained V. tach, COPD, prediabetes, childhood leukemia status posttr eatment, schizophrenia, mood disorder, ongoing tobacco abuse smoking 2 packs/day, history of psychosis comes because shortness of breath. Patient states he has cough and shortness of breath going on for last 4 weeks. Last couple days he is feeling feverish. And he was tested positive COVID today and came here. He was saturating 88% room air COPD exacerbation Ongoing tobacco abuse COVID-19 infection Acute respiratory failure with hypoxia CT PE did not show any PE but noted emphysema with bronchitis. No effusion or airspace consolidation. Currently on dexamethasone, remdesivir COVID precautions Continue nebs Weaned off oxygen this AM Monitor Counseled extensively regarding smoking cessation. Declined nicotine replacement therapy at this time Schizophrenia Mood disorder Continue home medications Timing of Haldol and Ritalin change per nurse's report of patient's facility schedule Hyperlipidemia On statin Hypertension History of nonsustained V. tach On propranolol Hyponatremia Sodium 130 on admission Appears chronic Na is 133 today DVT prophylaxis Lovenox Disposition Telemetry Full code I spent a total of 50 minutes coordinating, documenting and providing care for this patient excluding time spent in performance of separately billed services Admission and Anticipated Discharge Date Admission Date: December 10, 2023 Subjective Patient seen and examined Reports cough, shortness of breath. Stated he has shortness of breath for 4 weeks but had worsened in past few days with fever. Denies chest pain, nausea, vomiting, abdominal pain, diarrhea Reports some congestion. Reports sick contacts at where he lives. Reports smokes about 2 packs a day Physical Exam Constitutional: + well hydrated; no acute distress Eyes: PERRL, conjunctivae normal, anicteric sclerae ENMT: external ear and nose normal, oropharynx normal Respiratory: normal respiratory effort; no respiratory distress Rhonchi present bilaterally Cardiovascular: Rate/Rhythm: regular rate and regular rhythm Gastrointestinal (Abdomen): normal bowel sounds, soft, nontender, no hepatosplenomegaly Musculoskeletal: No pedal edema Neurologic: PERRL, EOMI, accommodation nl, no face palsy, no dysarthria Results & Data Results & Data Vital Signs (Past 12 Hours) Vital Signs Temp Pulse Resp BP Pulse Ox O2 Del Method O2 Flow Rate 12/11/23 11:12 85 16 93 Room Air 12/11/23 07:52 58 L 14 93 Room Air 12/11/23 07:25 36.4 C L 66 18 182/84 H 92 Nasal Cannula 2 12/11/23 04:25 36.9 C 82 20 132/56 L 98 Nasal Cannula 2 Laboratory Results Abnormal lab results 12/10/23 12/10/23 12/11/23 Range/Units 16:40 20:15 06:48 WBC 11.49 H (4.8-10.8) K/ul Hct 41.7 L (42.0-52.0) % Neut # (Auto) 9.47 H 6.68 H (1.40-6.50) K/uL Lymph # (Auto) 0.48 L 0.50 L (1.20-3.40) K/uL [place] # (Auto) 1.40 H (0.11-0.59) K/uL VBG pH 7.48 H (7.36-7.41) VBG pCO2 34 L (38-50) mmHg Sodium 130 L 133 L (136-145) mmol/L Glucose 128 H 130 H (70-99(Fasting)) mg/dl Total Bilirubin 1.1 H (0.2-1.0) mg/dl Troponin I High Sens 32.9 H 31.7 H (0-20) pg/ml B-Natriuretic Peptide 202 H (0-100) pg/ml 12/11/23 Range/Units 11:25 WBC (4.8-10.8) K/ul Hct (42.0-52.0) % Neut # (Auto) (1.40-6.50) K/uL Lymph # (Auto) (1.20-3.40) K/uL [place] # (Auto) (0.11-0.59) K/uL VBG pH (7.36-7.41) VBG pCO2 (38-50) mmHg Sodium (136-145) mmol/L Glucose (70-99(Fasting)) mg/dl Total Bilirubin (0.2-1.0) mg/dl Troponin I High Sens 21.1 H (0-20) pg/ml B-Natriuretic Peptide (0-100) pg/ml
[2023-12-11] MEDS: haloperidoL 5 MG TAB PO SCH (17:34)
[2023-12-11] MEDS: REMDESIVIR 100 MG in SODIUM CHLORIDE 0.9% 230 ML IV SCH (20:05)
[2023-12-12] MEDS: amLODIPine BESYLATE 5 MG TAB PO SCH (08:59)
[2023-12-12 09:54] LABS: Albumin Level 4.2 gm/dl (3.4-5.0); BUN Creatinine Ratio 22.8 (10-20); Bilirubin Direct 0.2 mg/dl (0-0.2); Bilirubin,Total 0.6 mg/dl (0.2-1.0); Est GFR (African American) 49.9 ml/min; Est GFR (Non-African American) 43.1 ml/min; Potassium 4.1 mmol/L (3.5-5.1); Total Protein 6.6 gm/dl (6.0-8.3)
[2023-12-12 11:04] LABS: Hematocrit (blood only) 44.8 % (42.0-52.0); Hemoglobin 14.7 g/dl (14.0-18.0); Mean Corpuscular Hemoglobin 28.3 pg (25.0-34.0); Mean Corpuscular Hgb Conc 32.8 g/dL (32.0-36.0); Mean Corpuscular Volume 86.2 fL (80.0-100.0); Mean Platelet Volume 10.7 fL (9.4-12.4); Platelet Count 247 K/uL (130-400); RDW Coefficient of Variation 14.2 % (11.5-14.5); RDW Standard Deviation 44.3 fL (36.4-46.3); White Blood Count 15.77 K/ul (4.8-10.8)
--- NOTE | 2023-12-12 11:04 | Hospitalist Progress Note ---
Date of Service December 12, 2023 Assessment & Plan (1) Acute exacerbation of chronic obstructive pulmonary disease: Plan: 73-year-old male with past med history significant for hypertension, nonsustained V. tach, COPD, prediabetes, childhood leukemia status posttr eatment, schizophrenia, mood disorder, ongoing tobacco abuse smoking 2 packs/day, history of psychosis comes because shortness of breath. Patient states he has cough and shortness of breath going on for last 4 weeks. Last couple days he is feeling feverish. And he was tested positive COVID today and came here. He was saturating 88% room air COPD exacerbation Ongoing tobacco abuse COVID-19 infection Acute respiratory failure with hypoxia CT PE did not show any PE but noted emphysema with bronchitis. No effusion or airspace consolidation. Currently on dexamethasone, remdesivir COVID precautions Continue nebs Was intermittently on oxygen yesterday Continue oxygen supplementation and wean as tolerated IS/Flutter Counseled extensively regarding smoking cessation. Declined nicotine repla cement therapy at this time Schizophrenia Mood disorder Continue home medications Timing of Haldol and Ritalin change per nurse's report of patient's facility schedule Hyperlipidemia On statin Hypertension History of nonsustained V. tach On propranolol BP poorly controlled Started on amlodipine 5mg Monitor Hyponatremia Sodium 130 on admission Appears chronic Na is 133 today DVT prophylaxis Lovenox Disposition Telemetry Full code I spent a total of 45 minutes coordinating, documenting and providing care for this patient excluding time spent in performance of separately billed services Admission and Anticipated Discharge Date Admission Date: December 10, 2023 Subjective Patient seen and examined Reports cough, shortness of breath. Denied chest pain Denied any other complaints RN reported patient was hypoxic overnight when they tried weaning off oxygen Physical Exam Constitutional: + well hydrated; no acute distress Eyes: PERRL, conjunctivae normal, anicteric sclerae ENMT: external ear and nose normal, oropharynx normal Respiratory: normal respiratory effort; no respiratory distress +rhonchi Cardiovascular: Rate/Rhythm: regular rate and regular rhythm Gastrointestinal (Abdomen): normal bowel sounds, soft, nontender, no hepatosplenomegaly Musculoskeletal: No pedal edema Neurologic: PERRL, EOMI, accommodation nl, no face palsy, no dysarthria Psychiatric: Alert and oriented to person and place Cooperative Results & Data Results & Data Vital Signs (Past 12 Hours) Vital Signs Temp Pulse Pulse Resp BP Pulse Ox O2 Del Method 12/12/23 09:09 Room Air, Nasal Cannula 12/12/23 08:43 56 L 12/12/23 07:35 36.4 C L 61 18 181/91 H 98 Nasal Cannula 12/12/23 07:24 84 14 94 Room Air, Nasal Cannula 12/12/23 02:03 36.3 C L 63 18 169/99 H 92 Room Air 12/11/23 23:38 36.2 C L 62 20 165/95 H 92 Nasal Cannula O2 Flow Rate 12/12/23 09:09 12/12/23 08:43 12/12/23 07:35 7 12/12/23 07:24 1 12/12/23 02:03 12/11/23 23:38 2
[2023-12-12] MEDS ORDERED: METHYLPHENIDATE HCL 10 MG TABLET PO SCH (14:00)
[2023-12-13 05:56] LABS: Hematocrit (blood only) 42.5 % (42.0-52.0); Hemoglobin 14.2 g/dl (14.0-18.0); Mean Corpuscular Hemoglobin 28.4 pg (25.0-34.0); Mean Corpuscular Hgb Conc 33.4 g/dL (32.0-36.0); Mean Platelet Volume 10.9 fL (9.4-12.4); Platelet Count 227 K/uL (130-400); RDW Coefficient of Variation 14.1 % (11.5-14.5); RDW Standard Deviation 43.3 fL (36.4-46.3); White Blood Count 11.93 K/ul (4.8-10.8)
[2023-12-13 06:08] LABS: BUN Creatinine Ratio 24.8 (10-20); Calcium 8.6 mg/dl (8.6-10.3); Creatinine Clr Calc Pharmacy 49.3 ml/min; Est GFR (African American) 57.3 ml/min; Est GFR (Non-African American) 49.4 ml/min; Potassium 4.1 mmol/L (3.5-5.1)
[2023-12-13] MEDS ORDERED: hydrALAZINE 10 MG TAB PO PRN (10:04)
--- NOTE | 2023-12-13 17:13 | Hospitalist Progress Note ---
Date of Service December 13, 2023 Assessment & Plan (1) Acute exacerbation of chronic obstructive pulmonary disease: Plan: 73-year-old male with past med history significant for hypertension, nonsustained V. tach, COPD, prediabetes, childhood leukemia status posttr eatment, schizophrenia, mood disorder, ongoing tobacco abuse smoking 2 packs/day, history of psychosis comes because shortness of breath. Patient states he has cough and shortness of breath going on for last 4 weeks. Last couple days he is feeling feverish. And he was tested positive COVID today and came here. He was saturating 88% room air Acute COPD exacerbation Ongoing tobacco abuse COVID-19 infection Acute respiratory failure with hypoxia --CTA:No pulmonary emboli. Emphysema with bronchitis. No pleural effusion or airspace consolidation typical for pneumonia. -- Procalcitonin pending Continue dexamethasone, remdesivir COVID precautions Continue nebs Weaned off of supplemental oxygen Continue pulmonary hygiene with flutter, incentive spirometry Counseled to quit smoking, patient currently not interested to quit smoking Monitor LFTs Schizophrenia Mood disorder Continue home medications Timing of Haldol and Ritalin change per nurse's report of patient's facility schedule Hyperlipidemia On statin Hypertension H/o NSVT Blood pressure elevated likely situational Continue home Propranolol Started on amlodipine Hydralazine as needed Monitor BP Hyponatremia Sodium 130 on admission Likely chronic Sodium 132 today CKD II-III Cr levels variable Monitor renal function DVT Px: Lovenox SQ Code Status Full code Admission and Anticipated Discharge Date Admission Date: December 10, 2023 Subjective Patient is seen and examined at bedside States having generalized weakness Admits to have cough Denies any chest pain, nausea, vomiting, abdominal pain, diarrhea Saturating well on room air No other complaints Review of Systems Review of Systems: All systems reviewed & are unremarkable except as noted in Subjective Physical Exam Physical Exam: Physical Exam: Vitals signs as noted above General Appearance:Moderately built and nourished, no apparent distress Head: normocephalic, Atraumatic Eyes: normal inspection, EOMI Neck: supple, Trachea midline Respiratory/Chest:Decreased breath sounds, scattered wheezing , No accessory muscle use Cardiovascular: S1, S2, No murmur Abdomen/GI:Soft, Non tender, Bowel sounds present Extremities/Musculoskeletal:normal inspection, no edema Neurologic/Psych:AAOX3, grossly no focal neurological deficits Skin: normal color, warm Results & Data Results & Data Vital Signs (Past 12 Hours) Vital Signs Temp Pulse Pulse Resp BP Pulse Ox O2 Del Method 12/13/23 15:36 66 12/13/23 14:54 36.3 C L 61 18 150/99 H 94 Room Air 12/13/23 11:22 36.3 C L 65 18 177/107 H 92 Room Air 12/13/23 09:00 58 L 12/13/23 09:00 Nasal Cannula 12/13/23 08:23 36.2 C L 59 L 18 193/89 H 92 Room Air O2 Flow Rate 12/13/23 15:36 12/13/23 14:54 12/13/23 11:22 12/13/23 09:00 12/13/23 09:00 1 12/13/23 08:23 Laboratory Results Short CBC 12/13/23 Range/Units 04:39 WBC 11.93 H (4.8-10.8) K/ul Hgb 14.2 (14.0-18.0) g/dl Hct 42.5 (42.0-52.0) % Plt Count 227 (130-400) K/uL BMP 12/13/23 04:39 Sodium 132 L Potassium 4.1 Chloride 100 Carbon Dioxide 24 BUN 35 H Creatinine 1.41 H Glucose 122 H Calcium 8.6 Liver Function 12/13/23 Range/Units 04:39 AST 20 (13-39) U/L ALT 12 (7-52) U/L
[2023-12-14 04:16] LABS: Hematocrit (blood only) 42.3 % (42.0-52.0); Mean Corpuscular Hemoglobin 27.9 pg (25.0-34.0); Mean Corpuscular Hgb Conc 33.1 g/dL (32.0-36.0); Mean Corpuscular Volume 84.4 fL (80.0-100.0); Mean Platelet Volume 10.7 fL (9.4-12.4); Platelet Count 236 K/uL (130-400); RDW Coefficient of Variation 13.9 % (11.5-14.5); RDW Standard Deviation 42.9 fL (36.4-46.3); Red Blood Count 5.01 M/uL (4.70-6.10); White Blood Count 11.22 K/ul (4.8-10.8)
[2023-12-14 04:28] LABS: BUN Creatinine Ratio 26.6 (10-20); Calcium 8.6 mg/dl (8.6-10.3); Creatinine Clr Calc Pharmacy 55.8 ml/min; Est GFR (African American) 66.9 ml/min; Est GFR (Non-African American) 57.7 ml/min
--- NOTE | 2023-12-14 14:10 | Hospitalist Progress Note ---
Date of Service December 14, 2023 Assessment & Plan (1) Acute exacerbation of chronic obstructive pulmonary disease: Plan: 73-year-old male with past med history significant for hypertension, nonsustained V. tach, COPD, prediabetes, childhood leukemia status posttr eatment, schizophrenia, mood disorder, ongoing tobacco abuse smoking 2 packs/day, history of psychosis comes because shortness of breath. Patient states he has cough and shortness of breath going on for last 4 weeks. Last couple days he is feeling feverish. And he was tested positive COVID today and came here. He was saturating 88% room air Acute COPD exacerbation Ongoing tobacco abuse COVID-19 infection Acute respiratory failure with hypoxia --CTA:No pulmonary emboli. Emphysema with bronchitis. No pleural effusion or airspace consolidation typical for pneumonia. -- Procalcitonin normal -- Patient has been noncompliant with inhaler use due to intolerance to taste. Will likely benefit from nebulizer use on discharge Continue dexamethasone, remdesivir Day #4 COVID precautions Continue nebs Weaned off of supplemental oxygen Continue pulmonary hygiene with flutter, incentive spirometry Counseled to quit smoking, patient currently not interested to quit smoking Monitor LFTs Plan to discharge on prednisone taper course Schizophrenia Mood disorder Continue home medications Timing of Haldol and Ritalin change per nurse's report of patient's facility schedule Hyperlipidemia On statin Hypertension H/o NSVT Blood pressure elevated likely situational Continue home Propranolol Started on amlodipine Hydralazine as needed Monitor BP Hyponatremia Sodium 130 on admission Likely chronic Monitor CKD II-III Cr levels variable Monitor renal function DVT Px: Lovenox SQ Code Status Full code Disposition SNF Admission and Anticipated Discharge Date Admission Date: December 10, 2023 Subjective Patient is seen and examined at bedside States feeling well today No significant cough No new complaints Denies any dyspnea, chest pain, nausea, vomiting, abdominal pain, diarrhea Saturating well on room air Plan to be discharged to personal care facility today Review of Systems Review of Systems: All systems reviewed & are unremarkable except as noted in Subjective Physical Exam Physical Exam: Physical Exam: Vitals signs as noted above General Appearance:Moderately built and nourished, no apparent distress Head: normocephalic, Atraumatic Eyes: normal inspection, EOMI Neck: supple, Trachea midline Respiratory/Chest:Decreased breath sounds, minimal wheezing , No accessory muscle use Cardiovascular: S1, S2, No murmur Abdomen/GI:Soft, Non tender, Bowel sounds present Extremities/Musculoskeletal:normal inspection, no edema Neurologic/Psych:AAOX3, grossly no focal neurological deficits Skin: normal color, warm Results & Data Results & Data Vital Signs (Past 12 Hours) Vital Signs Temp Pulse Pulse Resp BP BP Pulse Ox 12/14/23 11:38 36.5 C 5 L 18 131/76 90 12/14/23 08:55 57 L 12/14/23 08:00 36.6 C 65 18 165/84 H 94 12/14/23 03:53 36.3 C L 64 16 133/78 93 O2 Del Method 12/14/23 11:38 Room Air 12/14/23 08:55 12/14/23 08:00 Room Air 12/14/23 03:53 Room Air Laboratory Results Short CBC 12/14/23 Range/Units 03:28 WBC 11.22 H (4.8-10.8) K/ul Hgb 14.0 (14.0-18.0) g/dl Hct 42.3 (42.0-52.0) % Plt Count 236 (130-400) K/uL BMP 12/14/23 03:28 Sodium 130 L Potassium 4.0 Chloride 100 Carbon Dioxide 23 BUN 33 H Creatinine 1.24 Glucose 197 H Calcium 8.6 Liver Function 12/14/23 Range/Units 03:28 AST 16 (13-39) U/L ALT 12 (7-52) U/L
--- NOTE | 2023-12-14 14:22 | Discharge Summary ---
Date of Service December 14, 2023 Admission HPI Per Admitting Provider 73-year-old male with past med history significant for hypertension, nonsustained V. tach, COPD, prediabetes, childhood leukemia status posttreatment, schizophrenia, mood disorder, ongoing tobacco abuse smoking 2 packs/day, history of psychosis comes because shortness of breath. Patient states he has cough and shortness of breath going on for last 4 weeks. Last couple days he is feeling feverish. And he was tested positive COVID today and came here. He was saturating 88% room air on 2 L he saturating okay. Denies any headache. Denies any body ache. Feeling weak. Appetite is okay. No difficulty swallowing. Currently no sore throat. Denies any chest pain. No nausea. No abdominal pain. Normal bowel and bladder movements. Somewhat slow to answer. Past medical history. As mentioned above Past surgical history. Dental surgery. Social history. Smokes 2 packs cigarettes daily for last 15 years. No alcohol use. Used LSD as teen. Family history. Hypertension Admission Exam Per Admitting Provider General- Not in distress Head- atraumatic ENT- oropharynx clear Neck- supple, no JVD. Lungs- clear to auscultation mild b/l rhonchi Heart- regular rhythm; no murmur, no gallop. Abdomen- normal bowel sounds, soft, nontender, no distension. Extremities- no pretibial edema, no erythema seen. Neuro- alert, oriented slow to answer; PERRL, no facial palsy; no dysarthria; obeys simple commands Principal Diagnosis Acute exacerbation of chronic obstructive pulmonary disease COVID-19 infection Hypertension Discharge Data Allergies Allergy/AdvReac Type Severity Reaction Status Date / Time lithium Allergy Unknown Verified 12/10/23 19:47 Consultations 12/10/23 19:29 ED Decision to Admit Stat Procedures Performed Laboratory Results WBC 11.22 K/ul (4.8-10.8) H 12/14/23 03:28 RBC 5.01 M/uL (4.70-6.10) 12/14/23 03:28 Hgb 14.0 g/dl (14.0-18.0) 12/14/23 03:28 Hct 42.3 % (42.0-52.0) 12/14/23 03:28 MCV 84.4 fL (80.0-100.0) 12/14/23 03:28 MCH 27.9 pg (25.0-34.0) 12/14/23 03:28 MCHC 33.1 g/dL (32.0-36.0) 12/14/23 03:28 RDW Std Deviation 42.9 fL (36.4-46.3) 12/14/23 03:28 RDW Coeff of Demond 13.9 % (11.5-14.5) 12/14/23 03:28 Plt Count 236 K/uL (130-400) 12/14/23 03:28 MPV 10.7 fL (9.4-12.4) 12/14/23 03:28 Immature Gran % (Auto) 0.4 % 12/11/23 06:48 Neut % (Auto) 85.7 % 12/11/23 06:48 Lymph % (Auto) 6.4 % 12/11/23 06:48 Kimball % (Auto) 7.4 % 12/11/23 06:48 Eos % (Auto) 0.0 % 12/11/23 06:48 Baso % (Auto) 0.1 % 12/11/23 06:48 Neut # (Auto) 6.68 K/uL (1.40-6.50) H 12/11/23 06:48 Lymph # (Auto) 0.50 K/uL (1.20-3.40) L 12/11/23 06:48 Kimball # (Auto) 0.58 K/uL (0.11-0.59) 12/11/23 06:48 Eos # (Auto) 0.00 K/uL (0.00-0.50) 12/11/23 06:48 Baso # (Auto) 0.01 K/uL (0.00-0.20) 12/11/23 06:48 Immature Gran # (Auto) 0.03 K/uL (0.01-0.20) 12/11/23 06:48 PT 11.4 Seconds (9.0-12.0) 12/10/23 16:40 INR 1.0 (0.9-1.1) 12/10/23 16:40 VBG pH 7.48 (7.36-7.41) H 12/10/23 16:40 VBG pCO2 34 mmHg (38-50) L 12/10/23 16:40 VBG pO2 63 mmHg 12/10/23 16:40 VBG HCO3 25 mmol/L 12/10/23 16:40 VBG O2 Saturation 92.6 % 12/10/23 16:40 VBG Base Excess 2.2 mEq/L 12/10/23 16:40 Sodium 130 mmol/L (136-145) L 12/14/23 03:28 Potassium 4.0 mmol/L (3.5-5.1) 12/14/23 03:28 Chloride 100 mmol/L (98-107) 12/14/23 03:28 Carbon Dioxide 23 mmol/L (21-32) 12/14/23 03:28 Anion Gap 7 (3-11) 12/14/23 03:28 BUN 33 mg/dl (6-23) H 12/14/23 03:28 Creatinine 1.24 mg/dl (0.6-1.4) 12/14/23 03:28 Est Cr Clr Drug Dosing 55.8 ml/min 12/14/23 03:28 Est GFR ( Amer) 66.9 ml/min 12/14/23 03:28 Est GFR (Non-Af Amer) 57.7 ml/min 12/14/23 03:28 BUN/Creatinine Ratio 26.6 (10-20) H 12/14/23 03:28 Glucose 197 mg/dl (70-99(Fasting)) H 12/14/23 03:28 Calcium 8.6 mg/dl (8.6-10.3) 12/14/23 03:28 Magnesium 1.9 mg/dl (1.7-2.4) 12/11/23 06:48 Total Bilirubin 0.6 mg/dl (0.2-1.0) D 12/12/23 09:07 Direct Bilirubin 0.2 mg/dl (0-0.2) 12/12/23 09:07 AST 16 U/L (13-39) 12/14/23 03:28 ALT 12 U/L (7-52) 12/14/23 03:28 Alkaline Phosphatase 51 U/L (34-104) 12/12/23 09:07 Troponin I High Sens 18.5 pg/ml (0-20) 12/11/23 17:01 B-Natriuretic Peptide 202 pg/ml (0-100) H 12/10/23 16:40 Total Protein 6.6 gm/dl (6.0-8.3) 12/12/23 09:07 Albumin 4.2 gm/dl (3.4-5.0) 12/12/23 09:07 Globulin 2.6 gm/dl (2.5-4.0) 12/10/23 16:40 Albumin/Globulin Ratio 1.7 (0.9-2) 12/10/23 16:40 Procalcitonin < 0.02 ng/ml (0-0.5) 12/14/23 03:28 Urine Color Yellow 12/10/23 19:17 Urine Appearance Clear (Clear) 12/10/23 19:17 Urine pH 6.5 (4.5-7.5) 12/10/23 19:17 Ur Specific [place] 1.015 (1.000-1.030) 12/10/23 19:17 Urine Protein Negative (Negative) 12/10/23 19:17 Urine Glucose (UA) Negative (Negative) 12/10/23 19:17 Urine Ketones Negative (Negative) 12/10/23 19:17 Urine Blood Negative (Negative) 12/10/23 19:17 Urine Nitrite Negative (Negative) 12/10/23 19:17 Urine Bilirubin Negative (Negative) 12/10/23 19:17 Urine Urobilinogen Negative (Negative) 12/10/23 19:17 Ur Leukocyte Esterase Negative (Negative) 12/10/23 19:17 SARS-CoV-2 (PCR) POSITIVE (Negative) 12/10/23 Unknown Influenza Type A (PCR) Negative (Neg) 12/10/23 Unknown Influenza Type B (PCR) Negative (Neg) 12/10/23 Unknown RSV (RT-PCR) Negative (Neg) 12/10/23 Unknown Impressions Chest X-Ray 12/10/23 16:29 XR chest 1V portable HISTORY: 73 years-old Male Dyspnea acute shortness of breath COMPARISON: 10/25/2022 TECHNIQUE: AP view the chest FINDINGS: Cardiomediastinal and hilar silhouettes are unchanged. No pneumothorax, pleural effusion or overt pulmonary edema. Chronic interstitial coarsening of the lung bases. Bones appear grossly intact. IMPRESSION: No acute process. ACT 112: Negative or not required by law. The above report was generated using voice recognition software. It may contain grammatical, syntax or spelling errors. Electronically signed by: Victorino Urban M.D. 12/10/2023 4:58 PM Chest CTA 12/10/23 17:57 CT angio chest PE protocol CT DOSE: 760.94 mGy.cm HISTORY: 73 years-old Male with PE; SOB; hypoxia. Acute shortness of breath with hypoxia TECHNIQUE: Multiple CTA images of the chest were obtained after the intravenous administration of 119 ml Optiray. Coronal and sagittal MIPS were obtained from the axial data set and were submitted for review. All measurements were obtained according to NASCET criteria. A dose lowering technique was utilized adhering to the principles of ALARA. COMPARISON: Chest radiograph of same day, CTA chest 09/15/2017 FINDINGS: CTA: Heart is normal in size. No pericardial effusion. Moderate coronary artery calcifications. No thoracic aortic aneurysm or dissection. Unremarkable pulmona ry artery. No pulmonary emboli identified. CT CHEST: Unremarkable thyroid. No lymphadenopathy. No pneumothorax, pleural effusion, airspace consolidation or pulmonary edema. Advanced pulmonary emphysema with bronchial wall thickening. Mild linear left upper lobe scarring. 9 mm right hilar lymph node, likely physiologic. Small hiatal hernia with distal esophageal wall thickening. Calcified gra nulomata of the spleen. Unremarkable soft tissues. Chronic left-sided rib fractures. No acute fracture. IMPRESSION: 1. No pulmonary emboli. 2. Emphysema with bronchitis. 3. No pleural effusion or airspace consolidation typical for pneumonia. 4. Small hiatal hernia. ACT 112: Negative or not required by law. The above report was generated using voice recognition software. It may contain grammatical, syntax or spelling errors. Electronically signed by: Victorino Urban M.D. 12/10/2023 7:25 PM Ordered Studies 12/10/23 17:57 CT for pulmonary embolism PE [CT angio chest PE protocol] Stat Hospital Course (1) Acute exacerbation of chronic obstructive pulmonary disease: 73-year-old male with past med history significant for hypertension, nonsustained V. tach, COPD, prediabetes, childhood leukemia status posttreatment, schizophrenia, mood disorder, ongoing tobacco abuse smoking 2 packs/day, history of psychosis comes because shortness of breath. Patient states he has cough and shortness of breath going on for last 4 weeks. Last couple days he is feeling feverish. And he was tested positive COVID today and came here. He was saturating 88% room air Acute COPD exacerbation Ongoing tobacco abuse COVID-19 infection Acute respiratory failure with hypoxia --CTA:No pulmonary emboli. Emphysema with bronchitis. No pleural effusion or airspace consolidation typical for pneumonia. -- Procalcitonin normal -- Patient has been noncompliant with inhaler use due to intolerance to taste. Will likely benefit from nebulizer use on discharge Continue dexamethasone, remdesivir Day #4 COVID precautions Continue nebs Weaned off of supplemental oxygen Continue pulmonary hygiene with flutter, incentive spirometry Counseled to quit smoking, patient currently not interested to quit smoking Monitor LFTs Plan to discharge on prednisone taper course Schizophrenia Mood disorder Continue home medications Timing of Haldol and Ritalin change per nurse's report of patient's facility schedule Hyperlipidemia On statin Hypertension H/o NSVT Blood pressure elevated likely situational Continue home Propranolol Started on amlodipine Hydralazine as needed Monitor BP Hyponatremia Sodium 130 on admission Likely chronic Monitor CKD II-III Cr levels variable Monitor renal function DVT Px: Lovenox SQ Code Status Full code Disposition SNF Total Time Total Time Spent Total Time Spent (In Minutes): 65 minutes Discharge Plan Discharge Items Patient Disposition: Transfer [facility] Fac Reason For Visit: COPD EX, COVID Discharge Diagnosis: Acute exacerbation of chronic obstructive pulmonary disease COVID-19 infection Hypertension Activity: Per Instructions section Exercise/Sports: Wait until after follow-up appointment Non-emergency contact: Primary Care Provider Call non-emergency contact if: you have any medication questions, your symptoms worsen, your pain is concerning for you and you have a fever Follow-up/Referrals: Trip Segundo MD [Outside Practitioners] - (12/20/2023 11:20 AM Provider Trip Segundo MD Department General Internal Medicine [facility] ) [facility] [Primary Care Provider] - Diet: Heart Healthy Addtl Attending Provider Instructions: Follow-up with your primary care physician Dr. Segundo on 12/20/2023 11:20 AM -- Complete the prednisone tapering course as prescribed. Start taking prednisone 30 mg daily for 2 days, then take 20 mg daily for 2 day s, then take 10 mg daily for 2 days and stop. --Complete doxycycline 100 mg twice a day as prescribed. -- You are started on amlodipine 5 mg daily as your blood pressure was elevated. Monitor your blood pressure regularly can discuss with your physician for further adjustment of medications as needed. Seek immediate medical attention if your symptoms reoccur or worsen Please take all medications as instructed on discharge list below. Please call if you have any questions or problems. You can reach a [facility]und[facility] hospitalist on duty at [facility] 24 hours a day by calling [phone] Pending Studies at Discharge: No Stand-Alone Forms: My [facility] Skilled Items Patient informed of condition?: Yes DNR: No Discharge Level of Care: Skilled Communicable Disease: Yes Discharge Prognosis: Stable Lines: None Urinary Catheter: No Medications and DC Order Prescriptions: New amlodipine [Norvasc] 5 mg Tablet 5 mg PO QAM Qty: 30 0RF ipratropium-albuterol 0.5 mg-3 mg(2.5 mg base)/3 mL Solution For Nebulization 3 ml NEB Q4H PRN (Reason: shortness of breath or wheezing) Qty: 90 0RF prednisone 10 mg tablet 10 mg PO DIRECTED Qty: 12 0RF Rx Instructions: Start taking prednisone 30 mg daily for 2 days, then take 20 mg daily for 2 days, then take 10 mg daily for 2 days and stop doxycycline hyclate 100 mg tablet 100 mg PO BID Qty: 10 0RF Continued haloperidol 5 mg tablet 5 mg PO BID haloperidol decanoate 100 mg/mL Solution 100 mg IM .[id number] acetaminophen [Tylenol Extra Strength] 500 mg Tablet 1,000 mg PO Q8 PRN (Reason: Fever Or Pain) diphenhydramine HCl [Benadryl Allergy] 25 mg Tablet 25 mg PO BID PRN (Reason: Insomnia) propranolol 20 mg tablet 20 mg PO BID cholecalciferol (vitamin D3) [Vitamin D3] 125 mcg (5,000 unit) Tablet 125 mcg PO DAILY fluoxetine 40 mg capsule 40 mg PO DAILY methylphenidate HCl 10 mg tablet 10 mg PO BID pantoprazole 40 mg tablet,delayed release (DR/EC) 40 mg PO DAILY atorvastatin 20 mg tablet 20 mg PO HS aspirin [Children's Aspirin] 81 mg Tablet,Chewable 81 mg PO DAILY lorazepam 0.5 mg tablet 0.5 mg PO HS hydroxyzine HCl 10 mg tablet 10 mg PO TID Discharge Orders: Discharge Order (Routine); Ordered 12/14/23 Ordered By: Manish Quiros Admission Data Admit Date/Time: 12/10/23 20:25 Attending Provider: Manish Quiros Admit Provider: Saad Marr Primary Care Provider: [facility]Personal [facility] Other Providers: Saad Marr
== END 2023-12-14 15:31 | disposition home or self-care (01) | DRG 177 ==
LOC: ED 16:26 → 2W 20:25 → SUATTDRO 20:25 → 2W 22:37
DX: E87.1 Hypo-osmolality and hyponatremia; F17.210 Nicotine dependence, cigarettes, uncomplicated; I12.9 Hypertensive chronic kidney disease with stage 1 through stage 4 chronic kidney disease, or unspecified chronic kidney disease; R79.89 Other specified abnormal findings of blood chemistry; N18.30 Chronic kidney disease, stage 3 unspecified; J96.01 Acute respiratory failure with hypoxia; J43.9 Emphysema, unspecified; E78.5 Hyperlipidemia, unspecified; F20.9 Schizophrenia, unspecified; R73.03 Prediabetes; U07.1 COVID-19

== ENCOUNTER 2024-10-13 15:03 | Inpatient (IN) ==
--- OUTSIDE RECORDS SUMMARY | 2024-10-13 15:09 | External Medical Summary | Summary of Care ---
Author Name Unknown Organization [facility] Address [address] [place] [address] Phone [phone] Care Team Providers Care Agency Appointments Supervisor Name Role Phone Trip Segundo MD Primary Care Provider + Reason for Visit * Reason Onset Date Comments transfer of records 10/10/2024 Encounter Details Date Type Department Care Team (Late st Contact Info) Description 10/10/2024 Telephone General Internal Medicine [facility] [address] [place] [address] Trip Segundo MD [address] [place] [address] transfer of records Allergies Active Allergy Reactions Criticality Noted Date Comments Benztropine 11/02/2022 Severe confusion [place] Carbonate 10/04/2000 documented as of this encounter (statuses as of 10/10/2024) Medications hydrOXYzine HCl 10 MG Oral Tablet (Atarax) 2 Active Haloperidol Decanoate 100 MG/ML Intramuscular Solution Inject into a large muscle every 4 weeks . Active Haloperidol 5 MG Oral Tablet (Haldol) Take 1 Tablet by mouth in the morning and 1 Tablet before bedtime. 3 Active LORazepam 0.5 MG Oral Tablet (Ativan) Take 1 Tablet by mouth as needed. Active Sodium Chloride 1 GM Oral TabletIndications :Hyponatremia Take 1 Tablet by mouth in the morning and 1 Tablet at noon and 1 Tablet in the evening. 90 Tablet 3 3 Active Methylphenidate HCl 10 MG Oral Tablet (Ritalin) Take 1 Tablet by mouth in the morning and 1 Tablet before bedtime. Active FLUoxetine HCl 40 MG Oral Capsule (PROzac)Indicatio ns:Chronic paranoid schizophrenia (HCC) Take 1 Capsule by mouth in the morning. Per psychiatry. 4 Active Propranolol HCl 20 MG Oral Tablet (Inderal)Indicati ons:NSVT (nonsustained ventricular tachycardia) (HCC) TAKE 1 TABLET BY MOUTH TWICE DAILY FOR HIGH BLOOD PRESSURE 56 Tablet 10 4 Active Pantoprazole Sodium 40 MG Oral Tablet Delayed Release (Protonix)Indicat ions:Heartburn TAKE ONE TABLET BY MOUTH ONCE DAILY 30 MINUTES BEFORE THE FIRST MEALS FOR GERD 28 Tablet 10 4 Active Atorvastatin Calcium 20 MG Oral Tablet (Lipitor) TAKE ONE TABLET BY MOUTH AT BEDTIME FOR CHOLESTEROL 28 Tablet 5 4 Active D3-1000 25 MCG (1000 UT) Oral Capsule (Cholecalciferol) Indications:Vitam in D deficiency TAKE ONE CAPSULE BY MOUTH DAILY IN THE EVENING FOR SUPPLEMENT 28 Capsule 5 4 Active Temazepam 15 MG Oral Capsule ([place]) 4 Active amLODIPine Besylate 5 MG Oral Tablet (Norvasc) TAKE ONE TABLET BY MOUTH DAILY *HTN* 28 Tablet 10 4 Active Aspirin Low Dose 81 MG Oral Tablet Chewable (aspirin) TAKE 1 TABLET BY MOUTH DAILY * HEART HEALTH* 28 Tablet 4 4 Active Acetaminophen 500 MG Oral Tablet (Tylenol) Take 2 Tablets by mouth every 8 hours as needed for Fever >38C(100.5F) or Pain, Mild. 100 Tablet 5 Active Albuterol Sulfate 0.63 MG/3ML Inhalation Nebulization Solution (Accuneb) Inhale 1 Vial via nebulizer every 4 hours as needed for Wheezing. 90 mL 1 5 Active documented as of this encounter (statuses as of 10/10/2024) Active Problems Problem Noted Date Diagnosed Date History of CVA (cerebrovascular accident) 2022 Adverse effect of losartan 04/05/2022 Essential hypertension with goal blood pressure less than 130/80 11/28/2021 Chronic insomnia 11/16/2021 History of leukemia 12/25/2017 Overview (12/25/2017): As a child NSVT (nonsustained ventricular tachycardia) 08/29 Panlobular emphysema 09/20/2017 Overweight (BMI 25.0-29.9) 05/23/2013 Overview (05/23/2013): bmi= 26.63 05/23/13 Chronic paranoid schizophrenia 05/23/2013 Tobacco use disorder 05/23/2013 documented as of this encounter (statuses as of 10/10/2024) Resolved Problems Problem Noted Date Diagnosed Date Resolved Date Benign hypertension with CKD (chronic kidney disease) stage III 05/19/2023 12/20/2023 Prediabetes 01/13/2022 01/10/2024 Leukemia 09/22/2015 12/25/2017 Overview (09/22/2015): As a child Special screening for malign ant neoplasm of prostate 05/23/2013 09/22/2015 Joint symptoms of hand 05/23/201312/19 Illness 03/28/2013 09/22/2015 Overview (05/23/2013): at [facility] Dementia 09/24/2021 documented as of this encounter (statuses as of 10/10/2024) Immunizations Name Administration Dates Next Due Pneumococcal Polysaccharide PPV23 (Pneumovax) TD - Tetanus/Diptheria (ADULT) 08/24/2001 TDAP, Age 7 and older, IM (Adacel) 10/01/2008 documented as of this encounter Social History Tobacco Use Types Packs/Day Years Used Date Smoking Tobacco: Every Day Cigarettes 2 51 Smokeless Tobacco: Never Comments:began at age 14 Alcohol Use Standard Drinks/Week Comments No 0 (1 standard drink = 0.6 oz pur e alcohol) PHQ-2 Answer Date Recorded PHQ Adult Total Score 6 06/14/2024 Utilities Answer Date Recorded Do you have trouble paying y our heating, water, or electric bill? (Adult - for ages 18 years and over) Not on file 02/13/2024 Is your family able to pay t he heat, water, or electric bill? (Household - for ages 0-17 years) Not on file 02/13/2024 Does your family have access to good internet? (Household - for ages 0-17 years) Not on file 02/13/2024 Social Connections Answer Date Recorded How often do you feel lonely or isolated from those around you? (Adult - for ages 18 years and over) Not on file 02/13/2024 Sex and Gender Information Value Date Recorded Sex Assigned at Not on file Legal Sex Male 4:56 AM EST Gender Identity Not on file Sexual Orientation Not on file documented as of this encounter Miscellaneous Notes * Telephone Encounter - Laura Canales OSA - 10/10/2024 2:34 PM EST -Pt would like records sent to [facility]/ Intellectual Disabilities Drug and Alcohol for continued of care Thank you Forward to [facility] documented in this encounter Plan of Treatment Upcoming Encounters Date Type Department Care Team (Late st Contact Info) Description 11/28/2024 1:00 PM EDT Office Visit General Internal Medicine [facility] [address] [place] [address] Trip Segundo MD [address] [place] [address] 03/20/2025 9:20 AM EDT Office Visit General Internal Medicine [facility] [address] [place] [address] Trip Segundo MD [address] [facility] [address] [place] [id number] Health Maintenance Due Date Last Done Comments DISCUSS TOBACCO CESSATION (REFER TO SMARTSET #[id number]) 1950 COVID-19 Vaccine (#1) 1956 Zoster Vaccines (1 of 2) 1970 Cologuard 1996 Colonoscopy 1996 Colorectal Cancer Screening 1996 Fecal Occult Blood Test 1996 Sigmoidoscopy 1996 Lung Cancer Screening 2001 AAA Screening 2016 Pneumococcal Vaccine: 50+ Years (2 of 2 - PCV) 01/12/2017 01/13/2016 Adult Wellness Visit 2017 DTap/Tdap Vaccines (2 - Td or Tdap) 10/01/2018 10/01/2008, 08/24/2001 Influenza Vaccine (FLU shot) (#1) 2024 GFR 12/19/2024 12/20/2023, 12/2022, 01/11/2023, Additional history exists Depression Screening 06/14/2025 06/14/2024, 06/14/20 O2 ASSESSMENT COMPLETED IN PAST YEAR FOR COPD 06/14/2025 06/14/2024 Albumin/Creatinine Ratio 06/01/2026 06/01/2023, 12/26 Lipid Panel 05/28/2029 05/28/2024, 11/26, 03/17/2022, Additional history exists Alpha-1 Antitrypsin Completed 11/16/2021 HPV (Gardasil) Vaccine Aged Out No lo nger eligible based on patient's age to complete this topic Hepatitis B Vaccine Aged Out No longe r eligible based on patient's age to complete this topic MENINGOCOCCAL (MENACTRA/MENVEO) Aged Out No longer eligible based on patient's age to complete this topic documented as of this encounter Medical Devices Not on filedocumented as of this encounter Care Teams Agency Appointments Supervisor Relationship Specialty Start Date End Date Trip Segundo MD [address] [place] [address] PCP - General Internal Medicine 12/22/17 documented as of this encounter
--- OUTSIDE RECORDS SUMMARY | 2024-10-13 15:09 | External Medical Summary | Summary of Care ---
Author Name Unknown Organization [facility] Address [address] [place] [address] Phone [phone] Care Team Providers Care Petroleum Plant Operator Name Role Phone Trip Segundo MD Primary Care Provider + Encounter Details Date Type Department Care Team (Late st Contact Info) Description 09/17/2024 Telephone Family Practice [facility] [address] [place] [address] Trip Segundo MD [address] [place] [address] Allergies Active Allergy Reactions Criticality Noted Date Comments Benztropine 11/02/2022 Severe confusion [place] Carbonate 10/04/2000 documented as of this encounter (statuses as of 09/17/2024) Medications hydrOXYzine HCl 10 MG Oral Tablet (Atarax) 11/12/19 22 Active Haloperidol Decanoate 100 MG/ML Intramuscular Solution Inject into a large muscle every 4 weeks . Active Haloperidol 5 MG Oral Tablet (Haldol) Take 1 Tablet by mouth in the morning and 1 Tablet before bedtime. 11/03/19 23 Active LORazepam 0.5 MG Oral Tablet (Ativan) Take 1 Tablet by mouth as needed. Active Sodium Chloride 1 GM Oral TabletIndications :Hyponatremia Take 1 Tablet by mouth in the morning and 1 Tablet at noon and 1 Tablet in the evening. 90 Tablet 3 12/02/19 23 Active Methylphenidate HCl 10 MG Oral Tablet (Ritalin) Take 1 Tablet by mouth in the morning and 1 Tablet before bedtime. Active FLUoxetine HCl 40 MG Oral Capsule (PROzac)Indicatio ns:Chronic paranoid schizophrenia (HCC) Take 1 Capsule by mouth in the morning. Per psychiatry. 11/21/19 24 Active Propranolol HCl 20 MG Oral Tablet (Inderal)Indicati ons:NSVT (nonsustained ventricular tachycardia) (HCC) TAKE 1 TABLET BY MOUTH TWICE DAILY FOR HIGH BLOOD PRESSURE 56 Tablet 10 12/11/19 24 Active Pantoprazole Sodium 40 MG Oral Tablet Delayed Release (Protonix)Indicat ions:Heartburn TAKE ONE TABLET BY MOUTH ONCE DAILY 30 MINUTES BEFORE THE FIRST MEALS FOR GERD 28 Tablet 10 03/28/20 24 Active Atorvastatin Calcium 20 MG Oral Tablet (Lipitor) TAKE ONE TABLET BY MOUTH AT BEDTIME FOR CHOLESTEROL 28 Tablet 5 05/30/20 24 Active D3-1000 25 MCG (1000 UT) Oral Capsule (Cholecalciferol) Indications:Vitam in D deficiency TAKE ONE CAPSULE BY MOUTH DAILY IN THE EVENING FOR SUPPLEMENT 28 Capsule 5 05/31/20 24 Active Temazepam 15 MG Oral Capsule (Restoril) 05/17/20 24 Active amLODIPine Besylate 5 MG Oral Tablet (Norvasc) TAKE ONE TABLET BY MOUTH DAILY *HTN* 28 Tablet 10 08/14/20 24 Active Aspirin Low Dose 81 MG Oral Tablet Chewable (aspirin) TAKE 1 TABLET BY MOUTH DAILY * HEART HEALTH* 28 Tablet 4 08/14/20 24 Active Acetaminophen 500 MG Oral Tablet (Tylenol) Take 2 Tablets by mouth every 8 hours as needed for Fever >38C(100.5F) or Pain, Mild. 100 Tablet 09/04/19 25 Active predniSONE 20 MG Oral Tablet (Deltasone)Indica tions:Bronchitis, complicated Take 2 Tablets by mouth in the morning for 5 days. 10 Tablet 09/14/19 25 025 Active Doxycycline Hyclate 100 MG Oral CapsuleIndication s:Bronchitis, complicated Take 1 Capsule by mouth in the morning and 1 Capsule before bedtime. Do all this for 7 days. Take for 7 days. 14 Capsule 09/14/19 25 025 Active Albuterol Sulfate 0.63 MG/3ML Inhalation Nebulization Solution (Accuneb) Inhale 1 Vial via nebulizer every 4 hours as needed for Wheezing. 90 mL 1 09/17/19 25 Active Albuterol Sulfate 0.63 MG/3ML Inhalation Nebulization Solution (Accuneb) Inhale 1 Vial via nebulizer every 4 hours as needed for Wheezing. 3 mL 1 09/14/19 25 025 Discontin ued(Refil l) documented as of this encounter (statuses as of 09/17/2024) Active Problems Problem Noted Date Diagnosed Date [...] as of this encounter (statuses as of 09/17/2024) Resolved Problems Problem Noted Date Diagnosed Date Resolved Date Benign hypertension with CKD (chronic kidney disease) stage III 05/19/2023 12/20/2023 Prediabetes 01/13/2022 01/10/2024 Leukemia 09/22/2015 12/25/2017 Overview (09/22/2015): As a child Special screening for malign ant neoplasm of prostate 05/23/2013 09/22/2015 Joint symptoms of hand 05/23/201312/19 Illness 03/28/2013 09/22/2015 Overview (05/23/2013): at [facility] Dementia 09/24/2021 documented as of this encounter (statuses as of 09/17/2024) Immunizations Name Administration Dates Next Due Pneumococcal [...] encounter Miscellaneous Notes * Telephone Encounter - Irma Ruelas DO - 09/17/2024 4:14 PM EST Updated rx sent * Telephone Encounter - Lucinda Kaur RN - 09/17/2024 3:11 PM EST Pharmacy asked for clarification of Albuterol Neb solution. Only written for one vial Did you want to write for additional? Or wait to see how pt does? documented in this encounter Plan of Treatment Upcoming Encounters Date Type Department Care Team (Late st Contact Info) Description 11/28/2024 1:00 PM EDT Office Visit General Internal Medicine [facility] [place] [address] [place], [place] [address] Trip Segundo MD [address] [place] [address] 03/20/2025 9:20 AM EDT Office Visit General Internal Medicine [facility] [place] [address] [facility] [place] [address] Trip Segundo MD 200 [facility] [place], [place] [address] Health Maintenance Due Date Last Done Comments DISCUSS TOBACCO CESSATION (REFER TO SMARTSET #9822) 1950 COVID-19 Vaccine (#1) 1955 Zoster Vaccines [...] history exists Depression Screening 06/14/2025 06/14/2024, 06/14/20 24 O2 ASSESSMENT COMPLETED IN PAST YEAR FOR [...] filedocumented as of this encounter Care Teams Petroleum Plant Operator Relationship Specialty Start Date End Date Trip Segundo MD [address] [place] [address] PCP - General Internal Medicine 12/22/17 documented as of this encounter
--- OUTSIDE RECORDS SUMMARY | 2024-10-13 15:09 | External Medical Summary | Summary of Care ---
Author Name Unknown Organization [facility] Address [address] [place] [address] Phone [phone] Care Team Providers Care Hotel Or Motel Cleaning Supervisor Name Role Phone Trip Segundo MD Primary Care Provider + Encounter Details Date Type Department Care Team (Late st Contact Info) Description 09/14/2024 4:00 PM [facility] Telemedicine Family [facility] [address] [place] [address] Irma Ruelas DO [address] [place] [address] Bronchitis, complicated* Allergies Active Allergy Reactions Criticality Noted Date Comments Benztropine 11/02/2022 Severe confusion [place] Carbonate 10/04/2000 documented as of this encounter (statuses as of 09/14/2024) Medications hydrOXYzine HCl 10 MG Oral Tablet [...] as needed for Wheezing. 3 mL 1 5 Active predniSONE 20 MG Oral Tablet (Deltasone)Indica tions:Bronchitis, complicated Take 2 Tablets by mouth in the morning for 5 days. 10 Tablet 5 025 Active Doxycycline Hyclate 100 MG Oral CapsuleIndication s:Bronchitis, complicated Take 1 Capsule by mouth in the morning and 1 Capsule before bedtime. Do all this for 7 days. Take for 7 days. 14 Capsule 5 025 Active documented as of this encounter (statuses as of 09/14/2024) Active Problems Problem Noted Date Diagnosed Date [...] as of this encounter (statuses as of 09/14/2024) Resolved Problems Problem Noted Date Diagnosed Date Resolved Date Benign hypertension with CKD (chronic kidney disease) stage III 05/19/2023 12/20/2023 Prediabetes 01/13/2022 01/10/2024 Leukemia 09/22/2015 12/25/2017 Overview (09/22/2015): As a child Special screening for malign ant neoplasm of prostate 05/23/2013 09/22/2015 Joint symptoms of hand 05/23/201312/19 Illness 03/28/2013 09/22/2015 Overview (05/23/2013): at [facility] Dementia 09/24/2021 documented as of this encounter (statuses as of 09/14/2024) Immunizations Name Administration Dates Next Due Pneumococcal [...] on file documented as of this encounter Progress Notes * Irma Ruelas, DO - 09/14/2024 3:56 PM EST Subjective: Trip Parrish is a 74 year old male. No chief complaint on file. Patient location: FACILITY. I was in a hospital or clinic location. After connecting through [employer], patient was identified by name and date of and/or wristband checked. 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 My office door was closed. No one else was in the room with me.. Patientacknowledged consent and understanding of privacy and security of the Telemedicine visit and gave permission to have a telemedicine presenter stay in the room in order to assist with the history and to conduct the exam as needed. I informed the patient that I have reviewed their record in [employer] and presented the opportunity for them to ask any questions regarding the visit today. The patient agreed to participate. HPI: Pt presents w/c/o lungs being "terrible" can hardly breathe at times. + congestion in chest, some SOB w/coughing, occasionally w/exertion. Sx started more than a week ago. Hx of lung disease, smokes. Has been using albuterol nebs BID, feels better after treatments. + chills, + tired and achey. PHM: Patient Active Problem List Diagnosis Overweight (BMI 25.0-29.9) Chronic paranoid schizophrenia (HCC) Tobacco use disorder NSVT (nonsustained ventricular tachycardia) (HCC) Panlobular emphysema (HCC) History of leukemia Chronic insomnia Essential hypertension with goal blood pressure less than 130/80 Adverse effect of losartan History of CVA (cerebrovascular accident) Current Outpatient Medications Medication Sig Dispense Refill hydrOXYzine HCl 10 MG Oral Tablet (Atarax) Haloperidol Decanoate 100 MG/ML Intramuscular Solution Inject into a large muscle every 4 weeks . Haloperidol 5 MG Oral Tablet (Haldol) Take 1 Tablet by mouth in the morning and 1 Tablet before bedtime. LORazepam 0.5 MG Oral Tablet (Ativan) Take 1 Tablet by mouth as needed. Sodium Chloride 1 GM Oral Tablet Take 1 Tablet by mouth in the morning and 1 Tablet at noon and 1 Tablet in the evening. 90 Tablet 3 Methylphenidate HCl 10 MG Oral Tablet (Ritalin) Take 1 Tablet by mouth in the morning and 1 Tablet before bedtime. FLUoxetine HCl 40 MG Oral Capsule (PROzac) Take 1 Capsule by mouth in the morning. Per psychiatry. Propranolol HCl 20 MG Oral Tablet (Inderal) TAKE 1 TABLET BY MOUTH TWICE DAILY FOR HIGH BLOOD PRESSURE 56 Tablet 10 Pantoprazole Sodium 40 MG Oral Tablet Delayed Release (Protonix) TAKE ONE TABLET BY MOUTH ONCE DAILY 30 MINUTES BEFORE THE FIRST MEALS FOR GERD 28 Tablet 10 Atorvastatin Calcium 20 MG Oral Tablet (Lipitor) TAKE ONE TABLET BY MOUTH AT BEDTIME FOR CHOLESTEROL 28 Tablet 5 D3-1000 25 MCG (1000 UT) Oral Capsule (Cholecalciferol) TAKE ONE CAPSULE BY MOUTH DAILY IN THE EVENING FOR SUPPLEMENT 28 Capsule 5 Temazepam 15 MG Oral Capsule (Restoril) amLODIPine Besylate 5 MG Oral Tablet (Norvasc) TAKE ONE TABLET BY MOUTH DAILY *HTN* 28 Tablet 10 Aspirin Low Dose 81 MG Oral Tablet Chewable (aspirin) TAKE 1 TABLET BY MOUTH DAILY * HEART HEALTH* 28 Tablet 4 Acetaminophen 500 MG Oral Tablet (Tylenol) Take 2 Tablets by mouth every 8 hours as needed for Fever >38C(100.5F) or Pain, Mild. 100 Tablet 0 No current facility-administered medications for this visit. Past Medical History: Diagnosis Date Adverse effect of losartan 04/05/2022 Chronic paranoid schizophrenia (HCC) 05/23/2013 Dementia (HCC) History of leukemia 12/25/2017 As a child HTN, goal below 140/90 11/28/2021 Illness 03/2013 at [facility] Leukemia (HCC) 09/22/2015 As a child Prediabetes 01/13/2022 Past Surgical History: Procedure Laterality Date DENTAL SURGERY PROCEDURE NEC age 16 wisdom teeth x 4 Review of patient's allergies indicates: Allergen Reactions Benztropine Severe confusion [place] Carbonate Objective: There were no vitals taken for this visit. Review of Systems: As per HPI, all other ROS neg. Physical Exam: General: alert, healthy, and no distress Bronchitis, complicated (Primary) - predniSONE 20 MG Oral Tablet (Deltasone); Take 2 Tablets by mouth in the morning for 5 days. - Doxycycline Hyclate 100 MG Oral Capsule; Take 1 Capsule by mouth in the morning and 1 Capsule before bedtime. Do all this for 7 days. Take for 7 days. Other orders - Albuterol Sulfate 0.63 MG/3ML Inhalation Nebulization Solution (Accuneb); Inhale 1 Vial via nebulizer every 4 hours as needed for Wheezing. Follow up: as needed. Irma Ruelas DO documented in this encounter Plan of Treatment Upcoming Encounters Date Type Department Care Team (Late st Contact Info) Description 11/28/2024 1:00 PM EDT Office Visit General Internal Medicine [facility] [address] [place] [address] Trip Segundo MD [facility] [address] [facility] [address] 03/20/2025 9:20 AM EDT Office Visit General Internal Medicine [facility] [address] [place] [address] [place] [address] Trip Segundo MD [address] [facility] [place] [address] Health Maintenance Due Date Last Done Comments DISCUSS TOBACCO CESSATION (REFER TO SMARTSET #3291) 1950 COVID-19 Vaccine (#1) 1955 Zoster Vaccines [...] as of this encounter Visit Diagnoses Diagnosis Bronchitis, complicated- Primary Bronchitis, not specified as acute or chronic documented in this encounter Care Teams Hotel Or Motel Cleaning Supervisor Relationship Specialty Start Date End Date Trip Segundo MD [address] [facility] [place] [address] PCP - General Internal Medicine 12/22/17 documented as of this encounter
--- OUTSIDE RECORDS SUMMARY | 2024-10-13 15:10 | External Medical Summary ---
Author Name Unknown Address Unknown Organization [id number]:LABORATORY [facility] - [address] [facility] [address] Laboratory Report Ordering Provider Test Date Status ZAKSANCHO 05/28/2024 08:51:25 Final Observation Date Value Abnormality Reference (Units ) Status WBC, Total 05/28/2024 08:51:25 9.42 4.00-10.80 (K/uL) Final RBC 05/28/2024 08:51:25 5.17 4.50-5.25 (M/uL) Final Hemoglobin 05/28/2024 08:51:25 14.8 14.0-16.8 (g/dL) Final HCT 05/28/2024 08:51:25 47.6 40.0-48.4 (%) Final MCV 05/28/2024 08:51:25 92.1 82.0-99.5 (fL) Final MCH 05/28/2024 08:51:25 28.6 27.0-34.0 (pg) Final MCHC 05/28/2024 08:51:25 31.1 32.0-36.0 (g/dL) Final RDW 05/28/2024 08:51:25 14.9 11.5-15.5 (%) Final Platelets 05/28/2024 08:51:25 258 140-400 (K/uL) Final MPV 05/28/2024 08:51:25 11.3 6.6-11.1 (fL) Final Nucleated erythrocytes/100 leukocytes [Ratio] in Blood by Automated count 05/28/2024 08:51:25 0 <=0 (/100 WBCs) Final Performing Location LABORATORY [facility] - [address] [place] [address]
--- OUTSIDE RECORDS SUMMARY | 2024-10-13 15:10 | External Medical Summary ---
Author Name Unknown Address Unknown Organization [id number]:LABORATORY [facility] - [address] [facility] [address] Laboratory Report Ordering Provider Test Date Status ANTONIETA,DURA 05/28/2024 08:51:25 Final Observation Date Value Abnormality Reference (Units ) Status Triglyceride 05/28/2024 08:51:25 121 <=174 ( mg/dL) Final Triglyceride Reference Range s (mg/dL):
<150 Acceptable
150-174 Borderline high
175-499 High
>=500 Very high Cholesterol 05/28/2024 08:51:25 109 <200 (mg /dL) Final Total Cholesterol Reference Ranges (mg/dL):
<200 Desirable
200-239 Borderline high
>=240 High HDL 05/28/2024 08:51:25 30 Below low normal >39 (mg/dL) Final HDL Cholesterol Reference Ra nges (mg/dL):
>=60 High (Desirable)
<50 Low (Undesirable) For Females
<40 Low (Undesirable) For Males NON-HDL CHOLESTEROL 05/28/2024 08:51:25 79 <=159 (mg/dL) Final Non-HDL Cholesterol Referenc e Range (mg/dL):
<100 Target level for high risk ASCVD patient
<130 Optimal for general population
130-159 Near optimal for general population
160-189 Borderline High
190-219 High
>=220 Very High LDL, (calculated) 05/28/2024 08:51:25 55 <= 129 (mg/dL) Final LDL Cholesterol Reference Ra nges (mg/dL):
<70 Target level for high risk ASCVD patient
<100 Optimal for general population
100-129 Near optimal for general population
130-159 Borderline high
160-189 High
>=190 Very high Performing Location LABORATORY [facility] - [address] [facility] [address]
--- OUTSIDE RECORDS SUMMARY | 2024-10-13 15:10 | External Medical Summary | Summary of Care ---
Author Name Unknown Organization [facility] Address [address] [place] [address] Phone [phone] Care Team Providers Care Breakfast Supervisor Name Role Phone Trip Lemus MD Primary Care Provider + Reason for Visit * Reason Onset Date Comments Medication Refill 09/03/2024 Encounter Details Date Type Department Care Team (Late st Contact Info) Description 09/03/2024 Refill General Internal Medicine [facility] [address] [facility] [place] [address] Darian Lynne PA-C [facility] [place] [address] Allergies Active Allergy Reactions Criticality Noted Date Comments Benztropine 11/02/2022 Severe confusion [place] Carbonate 10/04/2000 documented as of this encounter (statuses as of 09/04/2024) Medications hydrOXYzine HCl 10 MG Oral Tablet [...] Pain, Mild. 100 Tablet 09/04/19 25 Active Acetaminophen 500 MG Oral Tablet (Tylenol) Take 2 Tablets by mouth every 8 hours as needed for Fever >38C(100.5F) or Pain, Mild. 100 Tablet 11/03/19 23 025 Discontin ued(Refil l) documented as of this encounter (statuses as of 09/04/2024) Active Problems Problem Noted Date Diagnosed Date [...] as of this encounter (statuses as of 09/04/2024) Resolved Problems Problem Noted Date Diagnosed Date Resolved Date Benign hypertension with CKD (chronic kidney disease) stage III 05/19/2023 12/20/2023 Prediabetes 01/13/2022 01/10/2024 Leukemia 09/22/2015 12/25/2017 Overview (09/22/2015): As a child Special screening for malign ant neoplasm of prostate 05/23/2013 09/22/2015 Joint symptoms of hand 05/23/201312/19 Illness 03/28/2013 09/22/2015 Overview (05/23/2013): at [facility] Dementia 09/24/2021 documented as of this encounter (statuses as of 09/04/2024) Immunizations Name Administration Dates Next Due Pneumococcal [...] Telephone Encounter - Trip Lemus MD - 09/04/2024 3:35 PM ESTSigned Prescriptions: Disp Refills Acetaminophen 500 MG Oral Tablet (Tylenol) 100 Ta*0 Sig: Take 2 Tablets by mouth every 8 hours as needed for Fever >38C(100.5F) or Pain, Mild. Authorizing Provider: TRIP LEMUS * Telephone Encounter - Lucia Gorman [facility] - 09/04/2024 2:45 PM ESTPending Prescriptions: Disp Refills Acetaminophen 500 MG Oral Tablet (Tylenol) 100 Ta*0 Sig: Take 2 Tablets by mouth every 8 hours as needed for Fever >38C(100.5F) or Pain, Mild. * Telephone Encounter - Lucia Gorman RP - 09/04/2024 2:45 PM EST Did you pend patient's preferred pharmacy and medication before forwarding?yes Pharmacy: [facility] [address] Pending Prescriptions: Disp Refills Acetaminophen 500 MG Oral Tablet (Tylenol)100 Ta*0 Sig: Take 2 Tablets by mouth every 8 hours as needed for Fever >38C(100.5F) or Pain, Mild. Last Visit: 06/14/2024 (in office), Visit date not found (telemedicine) Next Visit: 11/28/2024 If no future appointments scheduled, and last appointment is greater than a year ago, please schedule patient for a follow-up appointment Last date the medication was ordered: 11/02/22 Is this request for a controlled substance?No Urine Drug Screen:No results found for this or any previous visit. Patient Phone Numbers Labs: Lab Results Component Value Date/Time CREAT 1.3 (H) 12/20/2023 11:44 AM CREAT 1.2 06/27/2018 02:20 PM POTASSIUM 5.0 12/20/2023 11:44 AM POTASSIUM 4.2 06/27/2018 02:20 PM TSH 1.97 12/06/2022 09:44 AM TSH 2.88 12/25/2017 03:07 PM LDL 55 05/28/2024 08:51 AM LDL 108 06/27/2018 02:20 PM LDL NOT APPLICABLE 06/27/2018 02:20 PM ALT 13 12/20/2023 11:44 AM ALT <5 (L) 06/27/2018 02:20 PM HGBA1C 5.6 12/06/2022 09:44 AM documented in this encounter Plan of Treatment Upcoming Encounters Date Type Department Care Team (Late st Contact Info) Description 11/28/2024 1:00 PM EDT Office Visit General Internal Medicine [facility] [place] [address] [place] [address] Trip Lemus MD [address] [place] [address] 03/20/2025 9:20 AM EDT Office Visit General Internal Medicine [facility] [address] [place] [address] Trip Lemus MD [address] [facility] [place] [address] Health Maintenance Due Date Last Done Comments DISCUSS TOBACCO CESSATION (REFER TO SMARTSET #2900) 1950 COVID-19 Vaccine (#1) 1955 Zoster Vaccines [...] filedocumented as of this encounter Care Teams Breakfast Supervisor Relationship Specialty Start Date End Date Trip Lemus MD [address] [place] [address] PCP - General Internal Medicine 12/22/17 documented as of this encounter
--- OUTSIDE RECORDS SUMMARY | 2024-10-13 15:10 | External Medical Summary | Summary of Care ---
Author Name Unknown Organization [facility] Address [address] [place] [address] Phone [phone] Care Team Providers Care Advanced Analytics Associate Name Role Phone Trip Lemus MD Primary Care Provider + Reason for Visit * Reason Comments eRx-Medication Refill Encounter Details Date Type Department Care Team (Late st Contact Info) Description 08/14/2024 Refill General Internal Medicine [facility] [address] [place] [address] Trip Lemus MD [address] [place] [address] Allergies Active Allergy Reactions Criticality Noted Date Comments Benztropine 11/02/2022 Severe confusion [place] Carbonate 10/04/2000 documented as of this encounter (statuses as of 08/14/2024) Medications hydrOXYzine HCl 10 MG Oral Tablet (Atarax) 11/12/19 22 Active Haloperidol Decanoate 100 MG/ML Intramuscular Solution Inject into a large muscle every 4 weeks . Active Acetaminophen 500 MG Oral Tablet (Tylenol) Take 2 Tablets by mouth every 8 hours as needed for Fever >38C(100.5F) or Pain, Mild. 100 Tablet 11/03/19 23 Active Haloperidol 5 MG Oral Tablet (Haldol) Take 1 Tablet by mouth in the morning and 1 Tablet before bedtime. 11/03/19 23 Active LORazepam 0.5 MG Oral Tablet (Ativan) Take 1 Tablet by mouth as needed. Active Sodium Chloride 1 GM Oral TabletIndication s:Hyponatremia Take 1 Tablet by mouth in the morning and 1 Tablet at noon and 1 Tablet in the evening. 90 Tablet 3 12/02/19 23 Active Methylphenidate HCl 10 MG Oral Tablet (Ritalin) Take 1 Tablet by mouth in the morning and 1 Tablet before bedtime. Active FLUoxetine HCl 40 MG Oral Capsule (PROzac)Indicati ons:Chronic paranoid schizophrenia (HCC) Take 1 Capsule by mouth in the morning. Per psychiatry. 11/21/19 24 Active Propranolol HCl 20 MG Oral Tablet (Inderal)Indicat ions:NSVT (nonsustained ventricular tachycardia) (HCC) TAKE 1 TABLET BY MOUTH TWICE DAILY FOR HIGH BLOOD PRESSURE 56 Tablet 10 12/11/19 24 Active Pantoprazole Sodium 40 MG Oral Tablet Delayed Release (Protonix)Indica tions:Heartburn TAKE ONE TABLET BY MOUTH ONCE DAILY 30 MINUTES BEFORE THE FIRST MEALS FOR GERD 28 Tablet 10 03/28/20 24 Active Atorvastatin Calcium 20 MG Oral Tablet (Lipitor) TAKE ONE TABLET BY MOUTH AT BEDTIME FOR CHOLESTEROL 28 Tablet 5 05/30/20 24 Active D3-1000 25 MCG (1000 UT) Oral Capsule (Cholecalciferol )Indications:Vit blancas D deficiency TAKE ONE CAPSULE BY MOUTH [...] HEALTH* 28 Tablet 4 08/14/20 24 Active amLODIPine Besylate 5 MG Oral Tablet (Norvasc) Take 1 Tablet by mouth in the morning. 90 Tablet 2 12/26/19 24 2023 Discontinued Aspirin Low Dose 81 MG Oral Tablet Chewable (aspirin) TAKE 1 TABLET BY MOUTH DAILY * HEART HEALTH* 28 Tablet 4 03/05/20 24 2023 Discontinued documented as of this encounter (statuses as of 08/14/2024) Active Problems Problem Noted Date Diagnosed Date [...] as of this encounter (statuses as of 08/14/2024) Resolved Problems Problem Noted Date Diagnosed Date Resolved Date Benign hypertension with CKD (chronic kidney disease) stage III 05/19/2023 12/20/2023 Prediabetes 01/13/2022 01/10/2024 Leukemia 09/22/2015 12/25/2017 Overview (09/22/2015): As a child Special screening for malign ant neoplasm of prostate 05/23/2013 09/22/2015 Joint symptoms of hand 05/23/201312/19 Illness 03/28/2013 09/22/2015 Overview (05/23/2013): at [facility] Dementia 09/24/2021 documented as of this encounter (statuses as of 08/14/2024) Immunizations Name Administration Dates Next Due Pneumococcal [...] encounter Miscellaneous Notes * Telephone Encounter - Tanya Duarte RPh - 08/14/2024 8:30 PM ESTSigned Prescriptions: Disp Refills amLODIPine Besylate 5 MG Oral Tablet (Norv*28 Tab*10 Sig: TAKE ONE TABLET BY MOUTH DAILY *HTN*Authorizing Provider: TRIP LEMUS User: TANYA DUARTE Aspirin Low Dose 81 MG Oral Tablet Chewabl*28 Tab*4 Sig: TAKE 1 TABLET BY MOUTH DAILY * HEART HEALTH*Authorizing Provider: TRIP LEMUS User: TANYA DUARTE--- documented in this encounter Plan of Treatment Upcoming Encounters Date Type Department Care Team (Late st Contact Info) Description 11/28/2024 1:00 PM EDT Office Visit General Internal Medicine [facility] [place] [address] [place] [address] Trip Lemus MD [address] [place] [address] 03/20/2025 9:20 AM EDT Office Visit General Internal Medicine [facility] [place] [address] [place] [address] Trip Lemus MD [address] [place] [address] Health Maintenance Due Date Last Done Comments DISCUSS TOBACCO CESSATION (REFER TO SMARTSET #7758) 1950 COVID-19 Vaccine (#1) 1956 Zoster Vaccines (1 of 2) 1970 Cologuard 1996 Colonoscopy 1996 Colorectal Cancer Screening 1996 Fecal Occult Blood Test 1996 Sigmoidoscopy 1996 Lung Cancer Screening 2001 AAA Screening 2016 Pneumococcal Vaccine: 65+ [...] filedocumented as of this encounter Care Teams Advanced Analytics Associate Relationship Specialty Start Date End Date Trip Lemus MD [address] [place] [address] PCP - General Internal Medicine 12/22/17 documented as of this encounter
--- OUTSIDE RECORDS SUMMARY | 2024-10-13 15:10 | External Medical Summary | Summary of Care ---
Author Name Unknown Organization [facility] Address [address] [place] [address] Phone [phone] Care Team Providers Care Underwriter Solicitation Director Name Role Phone Trip Segundo MD Primary Care Provider + Reason for Visit * Reason Comments Outpatient Testing Encounter Details Date Type Department Care Team (Late st Contact Info) Description 05/28/2024 9:30 AM EDT Laboratory [facility], [facility] [address] [place] [address] [facility] [address] [place] [address] Abnormal CBC; Encounter for long-term (current) use of medications Allergies Active Allergy Reactions Criticality Noted Date Comments Benztropine 11/02/2022 Severe confusion [place] Carbonate 10/04/2000 documented as of this encounter (statuses as of 05/28/2024) Medications Medication Sig Dispensed Refills Start Date End Date Status hydrOXYzine HCl 10 MG Oral Tablet (Atarax) 11/11/2021 Active Haloperidol Decanoate 100 MG/ML Intramuscular Solution Inject into a large muscle every 4 weeks . Active diphenhydrAMINE HCl 50 MG Oral TabletIndications:Ch ronic paranoid schizophrenia (HCC) Take 1 Tablet by mouth 2 times a day as needed for Itching. 180 Tablet 3 11/02/2022 Active Acetaminophen 500 MG Oral Tablet (Tylenol) Take 2 Tablets by mouth every 8 hours as needed for Fever >38C(100.5F) or Pain, Mild. 100 Tablet 11/02/2022 Active Haloperidol 5 MG Oral Tablet (Haldol) Take 1 Tablet by mouth in the morning and 1 Tablet before bedtime. 11/02/2022 Active LORazepam 0.5 MG Oral Tablet (Ativan) Take 1 Tablet by mouth as needed. Active Sodium Chloride 1 GM Oral TabletIndications:Hy ponatremia Take 1 Tablet by mouth in the morning and 1 Tablet at noon and 1 Tablet in the evening. 90 Tablet 3 12/01/2022 Active Methylphenidate HCl 10 MG Oral Tablet (Ritalin) Take 1 Tablet by mouth in the morning and 1 Tablet before bedtime. Active Atorvastatin Calcium 20 MG Oral Tablet (Lipitor) TAKE ONE TABLET BY MOUTH AT BEDTIME FOR CHOLESTEROL 28 Tablet 5 11/13/2023 Active FLUoxetine HCl 40 MG Oral Capsule (PROzac)Indications: Chronic paranoid schizophrenia (HCC) Take 1 Capsule by mouth in the morning. Per psychiatry. 11/21/2023 Active Debrox 6.5 % Otic Solution (Carbamide Peroxide)Indications :Excessive cerumen in both ear canals Instill 5 to 10 drops twice daily for 4 days. To both ear canals; insert cotton plug. Remove plug after 15 to 30 minutes. 15 mL 1 11/21/2023 Active Additional Information Patient not taking.Reported on 12/20/2023 Propranolol HCl 20 MG Oral Tablet (Inderal)Indications :NSVT (nonsustained ventricular tachycardia) (HCC) TAKE 1 TABLET BY MOUTH TWICE DAILY FOR HIGH BLOOD PRESSURE 56 Tablet 10 12/11/2023 Active amLODIPine Besylate 5 MG Oral Tablet (Norvasc) Take 1 Tablet by mouth in the morning. 90 Tablet 2 12/26/2023 Active Vitamin D3 1000 UNIT Oral CapsuleIndications:V itamin D deficiency Take 1,000 Int'l Units by mouth every evening. 90 Capsule 1 12/27/2023 Active Aspirin Low Dose 81 MG Oral Tablet Chewable (aspirin) TAKE 1 TABLET BY MOUTH DAILY * HEART HEALTH* 28 Tablet 4 03/05/2024 Active Pantoprazole Sodium 40 MG Oral Tablet Delayed Release (Protonix)Indication s:Heartburn TAKE ONE TABLET BY MOUTH ONCE DAILY 30 MINUTES BEFORE THE FIRST MEALS FOR GERD 28 Tablet 10 03/28/2024 Active Nicotine 21 MG/24HR Transdermal Patch 24 Hour (Nicoderm CQ)Indications:Tobac co abuse Place 1 Patch over 24 hours topically on the skin daily. 42 Patch 04/26/2024 Active documented as of this encounter (statuses as of 05/28/2024) Active Problems Problem Noted Date Diagnosed Date [...] as of this encounter (statuses as of 05/28/2024) Resolved Problems Problem Noted Date Diagnosed Date Resolved Date Benign hypertension with CKD (chronic kidney disease) stage III 05/19/2023 12/20/2023 Prediabetes 01/13/2022 01/10/2024 Leukemia 09/22/2015 12/25/2017 Overview: As a child Special screening for malign ant neoplasm of prostate 05/23/2013 09/22/2015 Joint symptoms of hand 05/23/201312/19 Illness 03/28/2013 09/22/2015 Overview: at [facility] Dementia 09/24/2021 documented as of this encounter (statuses as of 05/28/2024) Immunizations Name Administration Dates Next Due Pneumococcal [...] Recorded PHQ Adult Total Score 0 04/04/2022 Utilities Answer Date Recorded Do you have [...] Team (Late st Contact Info) Description 06/11/2024 10:20 AM EDT Office Visit General Internal Medicine [facility] [place] [address] [place] [address] Trip Segundo MD [address] [place] [address] 11/28/2024 1:00 PM EDT Office Visit General Internal Medicine [facility] [place] [address] [place] [address] Trip Segundo MD [address] [place] [address] Pending Results Name Type Priority Associated Diagnoses Date /Time CBC WITH WBC DIFFERENTIAL Lab Routine Abnormal CBC 05/28/2024 8:51 AM EDT 25-HYDROXY VITAMIN D Lab Routine Encounter for long-term (current) use of medications 05/28/2024 8:51 AM EDT CBC Lab Routine Abnormal CBC 05/28/2024 8:51 AM EDT DIFFERENTIAL, AUTOMATED Lab Routine Abnormal CBC 05/28/2024 8:51 AM EDT Health Maintenance Due Date Last Done Comments DISCUSS TOBACCO CESSATION (REFER TO SMARTSET #5741) 1950 COVID-19 Vaccine (#1) 1956 Zoster Vaccines [...] 04/04/2023 04/04/2022 Influenza Vaccine (FLU shot) (#1) 2024 GFR 12/19/2024 12/20/2023, 12/2022, 01/11/2023, Additional history exists O2 ASSESSMENT COMPLETED IN PAST YEAR FOR COPD 12/19/2024 12/20/2023 Albumin/Creatinine Ratio 06/01/2026 06/01/2023, 12/26 Lipid Panel 12/07/2027 12/06/2022, 02/26, [...] as of this encounter Visit Diagnoses Diagnosis Abnormal CBC Other abnormal blood chemistry Encounter for long-term (current) use of medications Encounter for long-term (current) use of other medications documented in this encounter Care Teams Underwriter Solicitation Director Relationship Specialty Start Date End Date Trip Segundo MD [address] [place] [address] PCP - General Internal Medicine 12/22/17 documented as of this encounter
--- OUTSIDE RECORDS SUMMARY | 2024-10-13 15:10 | External Medical Summary ---
Author Name Unknown Address Unknown Organization K01:[facility] - [address] [facility] [place] [address] Laboratory Report Ordering Provider Test Date Status MARIAH CRESPO 05/28/2024 08:51:25 Final Observation Date Value Abnormality Reference (Units ) Status SYNC LEUKOCYTES IN BLOOD BY AUTOMATED COUNT 05/28/2024 08:51:25 9.42 4.00-10.80 (K/uL) Final Segs 05/28/2024 08:51:25 77.4 Above high normal 40.0-75.0 (%) Final Lymphs % 05/28/2024 08:51:25 10.7 Below low normal 18.0-42.0 (%) Final Monos 05/28/2024 08:51:25 8.7 1.0-11.0 (%) Final Eosinophils 05/28/2024 08:51:25 1.6 0.0-6.0 (%) Final Basos 05/28/2024 08:51:25 1.0 0.0-2.0 (%) Final Immature Granulocyte, Percent 05/28/2024 08:51:25 0.6 0.0-2.0 (%) Final Absolute Segs 05/28/2024 08:51:25 7.29 1.80-7.70 (K/uL) Final Lymphs, absolute 05/28/2024 08:51:25 1.01 1.00-4.80 (K/ul) Final Monos, Abs 05/28/2024 08:51:25 0.82 0.00-1.10 (K/uL) Final Eos, Abs 05/28/2024 08:51:25 0.15 0.00-0.70 (K/uL) Final Basos, Abs 05/28/2024 08:51:25 0.09 0.00-0.20 (K/uL) Final Immature Granulocytes, Number 05/28/2024 08:51:25 0.06 0.00-0.20 (K/uL) Final Performing Location [facility] - [address] [facility] [id number]
--- OUTSIDE RECORDS SUMMARY | 2024-10-13 15:10 | External Medical Summary | Summary of Care ---
Author Name Unknown Organization [facility] Address [address] [place] [address] Phone [phone] Care Team Providers Care Butadiene Converter Helper Name Role Phone Trip Segundo MD Primary Care Provider + Reason for Visit * Reason Comments Follow Up 6 month follow up. Genesis atient reports he fell and hit his head on the floor about a week, denies any symptoms, but would like evaluated. Denies any other concerns. Encounter Details Date Type Department Care Team (Latest Contact Info) Description 06/14/2024 11:20 AM EDT Office Visit General Internal Medicine [facility] [address] [facility] [place] [id number] Irma Ortiz PA-C [address] [facility] [place] [address] Essential hypertension with goal blood pressure less than 130/80*; Benign hypertension with CKD (chronic kidney disease) stage III (HCC); Panlobular emphysema (HCC); Prediabetes; Tobacco use disorder; History of leukemia; History of CVA (cerebrovascular accident); Screening PSA (prostate specific antigen); Vitamin D deficiency; Chronic paranoid schizophrenia (HCC) Allergies Active Allergy Reactions Criticality Noted Date Comments Benztropine 11/02/2022 Severe confusion [place] Carbonate 10/04/2000 documented as of this encounter (statuses as of 06/14/2024) Medications Medication Sig Dispensed Refills Start Date [...] needed. Active Sodium Chloride 1 GM Oral TabletIndications: [...] in the morning. Per psychiatry. 11/21/2023 Active Propranolol HCl 20 MG Oral Tablet (Inderal)Indicatio ns:NSVT (nonsustained ventricular tachycardia) ([facility]) TAKE 1 TABLET BY MOUTH TWICE DAILY FOR HIGH BLOOD PRESSURE 56 Tablet 10 12/11/2023 Active amLODIPine Besylate 5 MG Oral Tablet (Norvasc) Take 1 Tablet by mouth in the morning. 90 Tablet 2 12/26/2023 Active Aspirin Low Dose 81 MG Oral Tablet Chewable (aspirin) TAKE 1 TABLET BY MOUTH DAILY * HEART HEALTH* 28 Tablet 4 03/05/2024 Active Pantoprazole Sodium 40 MG Oral Tablet Delayed Release (Protonix)Indicati ons:Heartburn TAKE ONE TABLET BY MOUTH ONCE DAILY 30 MINUTES BEFORE THE FIRST MEALS FOR GERD 28 Tablet 10 03/28/2024 Active Atorvastatin Calcium 20 MG Oral Tablet (Lipitor) TAKE ONE TABLET BY MOUTH AT BEDTIME FOR CHOLESTEROL 28 Tablet 5 05/30/2024 Active D3-1000 25 MCG (1000 UT) Oral Capsule (Cholecalciferol)I ndications:Vitamin D deficiency TAKE ONE CAPSULE BY MOUTH DAILY IN THE EVENING FOR SUPPLEMENT 28 Capsule 5 05/31/2024 Active Temazepam 15 MG Oral Capsule (Restoril) 05/17/2024 Active diphenhydrAMINE HCl 50 MG Oral TabletIndications: Chronic paranoid schizophrenia (HCC) Take 1 Tablet by mouth 2 times a day as needed for Itching. 180 Tablet 3 11/02/2022 4 Discontinue d(Medicatio n List Clean Up) Debrox 6.5 % Otic Solution (Carbamide Peroxide)Indicatio ns:Excessive cerumen in both ear canals Instill 5 to 10 drops twice daily for 4 days. To both ear canals; insert cotton plug. Remove plug after 15 to 30 minutes. 15 mL 1 11/21/2023 4 Discontinue d(Medicatio n List Clean Up) Nicotine 21 MG/24HR Transdermal Patch 24 Hour (Nicoderm CQ)Indications:Tob acco abuse Place 1 Patch over 24 hours topically on the skin daily. 42 Patch 04/26/2024 4 Discontinue d(Medicatio n List Clean Up) documented as of this encounter (statuses as of 06/14/2024) Active Problems Problem Noted Date Diagnosed Date [...] as of this encounter (statuses as of 06/14/2024) Resolved Problems Problem Noted Date Diagnosed Date Resolved Date Benign hypertension with CKD (chronic kidney disease) stage III 05/19/2023 12/20/2023 Prediabetes 01/13/2022 01/10/2024 Leukemia 09/22/2015 12/25/2017 Overview: As a child Special screening for malign ant neoplasm of prostate 05/23/2013 09/22/2015 Joint symptoms of hand 05/23/201312/19 Illness 03/28/2013 09/22/2015 Overview: at [facility] Dementia 09/24/2021 documented as of this encounter (statuses as of 06/14/2024) Immunizations Name Administration Dates Next Due Pneumococcal [...] Sign Reading Time Taken Comments Blood Pressure 124/76 06/14/2024 11:16 AM EDT Pulse 70 06/14/2024 11:16 AM EDT Temperature 35.1 C (95.1 F) 06/14/2024 11:16 AM E DT Respiratory Rate - - Oxygen Saturation 96% 06/14/2024 11:16 AM EDT Inhaled Oxygen Concentration - - Weight 88.9 kg (196 lb) 06/14/2024 11:16 AM EDT Height - - Body Mass Index 30.7 12/20/2023 11:13 AM EDT documented in this encounter Progress Notes * Irma Ortiz PA-C - 06/14/2024 11:36 AM EDT Images from the original note were not included. History of Present Illness Trip Parrish is a 73 year old male that presents for Follow Up (6 month follow up. Patient reports he fell and hit his head on the floor about a week, denies any symptoms, but would like evaluated. Denies any other concerns. ) Pt here today for a routine 6 month f/up of chronic medical conditions. Labs earlier this month were stable. Pt follows with psych routinely. Pt states he tripped and fell last week. Reports he hit his head, but did not lose consciousness. Denies HARRY or any other injuries or ongoing symptoms since the fall. Denies chest pain or increased SOB. No issues with bowels. Does report nocturia and weakened urinary stream. Pt continues to smoke 2 PPD. Nicotine patches did not work well. Pt declines lung CA screening. Colorectal cancer screening, AAA screening, and all vaccines. Review of Systems: See HPI for pertinent positives. All other review of systems is negative. Physical Exam Vitals: 06/14/24 1116 Temp: (!) 35.1 C (95.1 F) Pulse: 70 SpO2: 96% BP: 124/76 Physical Exam Constitutional: General: He is not in acute distress. Appearance: He is not diaphoretic. HENT: Right Ear: Tympanic membrane, ear canal and external ear normal. Left Ear: Tympanic membrane, ear canal and external ear normal. Mouth/Throat: Mouth: Mucous membranes are moist. Pharynx: Oropharynx is clear. Cardiovascular: Rate and Rhythm: Normal rate and regular rhythm. Pulmonary: Effort: Pulmonary effort is normal. Breath sounds: Rhonchi present. Abdominal: General: Bowel sounds are normal. Palpations: Abdomen is soft. Musculoskeletal: Cervical back: Normal range of motion and neck supple. Skin: General: Skin is warm and dry. Neurological: General: No focal deficit present. Mental Status: He is alert. Mental status is at baseline. I have reviewed the following results: Assessment and Plan Essential hypertension with goal blood pressure less than 130/80 Stable. Continue current meds. - COMPREHENSIVE METABOLIC PANEL; Future Benign hypertension with CKD (chronic kidney disease) stage III (HCC) Update labs to monitor renal function. - COMPREHENSIVE METABOLIC PANEL; Future Panlobular emphysema (HCC) Smoking cessation encouraged. Pt declines inhalers and lung CA screening. Prediabetes Update labs. - COMPREHENSIVE METABOLIC PANEL; Future - HEMOGLOBIN A1C; Future Tobacco use disorder Cessation encouraged. History of leukemia Continue to monitor CBC. - CBC WITH WBC DIFFERENTIAL; Future History of CVA (cerebrovascular accident) Screening PSA (prostate specific antigen) Update PSA level. - PSA; Future Vitamin D deficiency Continue Vit d supplement. - 25-HYDROXY VITAMIN D; Future Chronic paranoid schizophrenia (HCC) Continue to follow with Psych. Wrap-Up Follow Up: Return in about 6 months (around 12/13/2024) for Return with Physician, Fasting Labs 2-5 Days Before Next Visit. | For: Return with Physician, Fasting Labs 2-5 Days Before Next Visit | Check-out note: 6 month f/up with Dr. Segundo with fasting labs 1 week prior Time: I spent a total of 30-39 minutes (exact time 34 mins) on the date of service in preparation, delivery, and documentation of the care provided to Trip Parrish excluding any time spent in the performance of separately billed services. documented in this encounter Nursing Notes * Melinda Alonso MED ASSIST - 06/14/2024 11:19 AM EDT Chief Complaint Patient presents with Follow Up 6 month follow up. Patient reports he fell and hit his head on the floor about a week, denies any symptoms, but would like evaluated. Denies any other concerns. Patient has been verbally educated on the need or importance of Colon Cancer Screening, Flu Vaccine, Pneumococcal Vaccine, Tdap Vaccine, and Shingles Vaccine and has declined topic(s). documented in this encounter Plan of Treatment Upcoming Encounters Date Type Department Care Team (Late st Contact Info) Description 11/28/2024 1:00 PM EDT Office Visit General Internal Medicine [facility] [address] [facility] [place] [address] Trip Segundo MD [address] [facility] [place] [address] 03/20/2025 9:20 AM EDT Office Visit General Internal Medicine [place] [facility] [place] [address] Trip Segundo MD [address] [facility] [place] [address] Scheduled Orders Name Type Priority Associated Diagnoses Orde r Schedule COMPREHENSIVE METABOLIC PANEL Lab Routine Essential hypertension with goal blood pressure less than 130/80 Benign hypertension with CKD (chronic kidney disease) stage III (HCC) Prediabetes Expected: 12/13/2024 (Approximate), Expires: 06/14/2025 CBC WITH WBC DIFFERENTIAL Lab Routine History of leukemia Expected: 12/13/2024 (Approximate), Expires: 06/14/2025 HEMOGLOBIN A1C Lab Routine Prediabetes Expected: 12/13/2024 (Approximate), Expires: 06/14/2025 PSA Lab Routine Screening PSA (prostate specific antigen) Expected: 12/13/2024 (Approximate), Expires: 06/14/2025 25-HYDROXY VITAMIN D Lab Routine Vitamin D deficiency Expected: 12/13/2024 (Approximate), Expires: 06/14/2025 Health Maintenance Due Date Last Done Comments DISCUSS TOBACCO CESSATION (REFER TO SMARTSET #3019) 1950 Zoster Vaccines (1 of 2) 1970 Cologuard 1996 Colonoscopy 1996 Colorectal Cancer Screening 1996 Fecal Occult Blood Test 1996 Sigmoidoscopy 1996 Lung Cancer Screening 2001 AAA Screening 2016 Pneumococcal Vaccine: 65+ Years (2 of 2 - PCV) 01/12/2017 01/13/2016 Adult Wellness Visit 2017 DTap/Tdap Vaccines (2 - Td or Tdap) 10/01/2018 10/01/2008, 08/24/2001 Influenza Vaccine (FLU shot) (#1) 2024 COVID-19 Vaccine (#1) 06/15/2024 Postpo katelyn from 1955 (Unavailable) GFR 12/19/2024 12/20/2023, 12/2022, 01/11/2023, Additional history [...] as of this encounter Visit Diagnoses Diagnosis Essential hypertension with goal blood pressure less than 130/80- Primary Benign hypertension with CKD (chronic kidney disease) stage III (HCC) Benign hypertensive kidney disease with chronic kidney disease stage I through stage IV, or unspecified Panlobular emphysema (HCC) Other emphysema Prediabetes Other abnormal glucose Tobacco use disorder History of leukemia Personal history of unspecified leukemia History of CVA (cerebrovascular accident) Transient ischemic attack (TIA), and cerebral infarction without residual deficits Screening PSA (prostate specific antigen) Special screening for malignant neoplasm of prostate Vitamin D deficiency Unspecified vitamin D deficiency Chronic paranoid schizophrenia (HCC) Paranoid schizophrenia, chronic condition documented in this encounter Care Teams Butadiene Converter Helper Relationship Specialty Start Date End Date Trip Segundo MD [address] [place] [address] PCP - General Internal Medicine 12/22/17 documented as of this encounter"
--- OUTSIDE RECORDS SUMMARY | 2024-10-13 15:10 | External Medical Summary ---
Author Name Unknown Address Unknown Organization K01:[facility] - [address] [place] [address] Laboratory Report Ordering Provider Test Date Status MARIAH CRESPO 05/28/2024 08:51:25 Final Deficient: <20 ng/mL
Ins ufficient: 20-29 ng/mL
Recommended/Optimum:30-50 ng/mL

Vitamin D intoxication is rare. If suspicious of Vitamin D toxicity, evaluation of serum Calcium and PTH is recommended. Observation Date Value Abnormality Reference (Units ) Status 25-OH Vitamin D total 05/28/2024 08:51:25 41 >19 (ng/mL) Final Performing Location [facility] - [address] [place] [address]
--- OUTSIDE RECORDS SUMMARY | 2024-10-13 15:10 | External Medical Summary | Summary of Care ---
Author Name Unknown Organization [facility] Address [address] [place] [address] Phone [phone] Care Team Providers Care Credit Or Loans Officer Name Role Phone Trip Segundo MD Primary Care Provider + Reason for Visit * Reason Onset Date Comments MyCode Nonconsent - Not interested at this time 05/28/2024 Encounter Details Date Type Department Care Team (Late st Contact Info) Description 05/28/2024 Orders Only Outcomes Research Department [address], [place] [id number] Roro Barnard CHRA MyCode Nonconsent Documentation Allergies Active Allergy Reactions Criticality Noted Date Comments Benztropine 11/02/2022 Severe confusion [place] Carbonate 10/04/2000 documented as of this encounter [...] hand 05/23/201312/19 Illness 03/28/2013 09/22/2015 Overview: at [facility] Dementia 09/24/2021 documented as of this [...] as of this encounter Progress Notes * Roro Barnard CHRA - 05/28/2024 10:10 AM EDT Rioode Nonconsent Documentation Trip Parrish was approached in the clinic regarding participation in the MyCode Project and did not consent. documented in this encounter Plan of Treatment Upcoming Encounters Date Type Department Care Team (Late st Contact Info) Description 06/11/2024 10:20 AM EDT Office Visit General Internal Medicine [facility] [place] [address] Trip Segundo MD [address] [place] [address] 11/28/2024 1:00 PM EDT Office Visit [facility] [place] [address] Trpi Segundo MD [address] [place] [address] Health Maintenance Due Date Last Done Comments DISCUSS TOBACCO CESSATION (REFER TO SMARTSET #0921) 1950 COVID-19 Vaccine (#1) 1956 Zoster Vaccines [...] (FLU shot) (#1) 2024 GFR 12/19/2024 12/20/2023, 10/0 12/2022, 01/11/2023, Additional history exists O2 ASSESSMENT COMPLETED IN PAST YEAR FOR COPD 12/19/2024 12/20/2023 Albumin/Creatinine Ratio 06/01/2026 06/01/2023, 0509/2021 Lipid Panel 12/07/2027 12/06/2022, 0708/2021, 11/16/2021, Additional history exists Alpha-1 Antitrypsin Completed [...] filedocumented as of this encounter Care Teams Credit Or Loans Officer Relationship Specialty Start Date End Date Trip Segundo MD [address] [place] [address] PCP - General Internal Medicine 12/22/17 documented as of this encounter
--- OUTSIDE RECORDS SUMMARY | 2024-10-13 15:10 | External Medical Summary | Summary of Care ---
Author Name Unknown Organization [facility] Address [address] [place] [address] Phone [phone] Care Team Providers Care Transfer Station Operator Name Role Phone Trip Lemus MD Primary Care Provider + Reason for Visit * Reason Comments eRx-Medication Refill Encounter Details Date Type Department Care Team (Late st Contact Info) Description 05/29/2024 Refill General Internal Medicine [facility] [address] [place] [address] Trip Lemus MD [address] [place] [address] Encounter for long-term (current) use of medications*; Vitamin D deficiency Allergies Active Allergy Reactions Criticality Noted Date Comments Benztropine 11/02/2022 Severe confusion [place] Carbonate 10/04/2000 documented as of this encounter (statuses as of 05/31/2024) Medications Medication Sig Dispensed Refills Start Date End Date Status hydrOXYzine HCl 10 MG Oral Tablet (Atarax) 2 Active Haloperidol Decanoate 100 MG/ML Intramuscular Solution Inject into a large muscle every 4 weeks . Active diphenhydrAMINE HCl 50 MG Oral TabletIndications: Chronic paranoid schizophrenia (HCC) Take 1 Tablet by mouth 2 times a day as needed for Itching. 180 Tablet 3 3 Active Acetaminophen 500 MG Oral Tablet (Tylenol) Take 2 Tablets by mouth every 8 hours as needed for Fever >38C(100.5F) or Pain, Mild. 100 Tablet 3 Active Haloperidol 5 MG Oral Tablet [...] in the morning. Per psychiatry. 4 Active Debrox 6.5 % Otic Solution (Carbamide Peroxide)Indicatio ns:Excessive cerumen in both ear canals Instill 5 to 10 drops twice daily for 4 days. To both ear canals; insert cotton plug. Remove plug after 15 to 30 minutes. 15 mL 1 4 Active Additional Information Patient not taking.Reported on 12/20/2023 Propranolol HCl 20 MG Oral Tablet (Inderal)Indicatio ns:NSVT (nonsustained ventricular tachycardia) ([facility]) TAKE 1 TABLET BY MOUTH TWICE DAILY FOR HIGH BLOOD PRESSURE 56 Tablet 10 4 Active amLODIPine Besylate 5 MG Oral Tablet (Norvasc) Take 1 Tablet by mouth in the morning. 90 Tablet 2 4 Active Aspirin Low Dose 81 MG Oral Tablet Chewable (aspirin) TAKE 1 TABLET BY MOUTH DAILY * [facility]* 28 Tablet 4 4 Active Pantoprazole Sodium 40 MG Oral Tablet Delayed Release (Protonix)Indicati ons:Heartburn TAKE ONE TABLET BY MOUTH ONCE DAILY 30 MINUTES BEFORE THE FIRST MEALS FOR GERD 28 Tablet 10 4 Active Nicotine 21 MG/24HR Transdermal Patch 24 Hour (Nicoderm CQ)Indications:Tob acco abuse Place 1 Patch over 24 hours topically on the skin daily. 42 Patch 4 Active Atorvastatin Calcium 20 MG Oral Tablet (Lipitor) TAKE ONE TABLET BY MOUTH AT BEDTIME FOR CHOLESTEROL 28 Tablet 5 4 Active D3-1000 25 MCG (1000 UT) Oral Capsule (Cholecalciferol)I ndications:Vitamin D deficiency TAKE ONE CAPSULE BY MOUTH DAILY IN THE EVENING FOR SUPPLEMENT 28 Capsule 5 4 Active Atorvastatin Calcium 20 MG Oral Tablet (Lipitor) TAKE ONE TABLET BY MOUTH AT BEDTIME FOR CHOLESTEROL 28 Tablet 5 4 05/30/20 24 Discontinued Vitamin D3 1000 UNIT Oral CapsuleIndications :Vitamin D deficiency Take 1,000 Int'l Units by mouth every evening. 90 Capsule 1 4 05/31/20 24 Discontinued documented as of this encounter (statuses as of 05/31/2024) Active Problems Problem Noted Date Diagnosed Date [...] as of this encounter (statuses as of 05/31/2024) Resolved Problems Problem Noted Date Diagnosed Date Resolved Date Benign hypertension with CKD (chronic kidney disease) stage III 05/19/2023 12/20/2023 Prediabetes 01/13/2022 01/10/2024 Leukemia 09/22/2015 12/25/2017 Overview: As a child Special screening for malign ant neoplasm of prostate 05/23/2013 09/22/2015 Joint symptoms of hand 05/23/201312/19 Illness 03/28/2013 09/22/2015 Overview: at [facility] Dementia 09/24/2021 documented as of this encounter (statuses as of 05/31/2024) Immunizations Name Administration Dates Next Due Pneumococcal [...] encounter Miscellaneous Notes * Telephone Encounter - Randall Kim MD - 05/31/2024 9:35 AM EDTSigned Prescriptions: Disp Refills Atorvastatin Calcium 20 MG Oral Tablet (Li*28 Tab*5 Sig: TAKE ONE TABLET BY MOUTH AT BEDTIME FOR CHOLESTEROL Authorizing Provider: TRIP LEMUS Ordering User: ARELI GRIGGS D3-1000 25 MCG (1000 UT) Oral Capsule (Cho*28 Cap*5 Sig: TAKE ONE CAPSULE BY MOUTH DAILY IN THE EVENING FOR SUPPLEMENT Authorizing Provider: RANDALL KIM * Telephone Encounter - Areli Griggs [facility] - 05/30/2024 8:17 PM EDTPending Prescriptions: Disp Refills D3-1000 25 MCG (1000 UT) Oral Capsule (Cho*28 Cap*5 Sig: TAKE ONE CAPSULE BY MOUTH DAILY IN THE EVENING FOR SUPPLEMENT Signed Prescriptions: Disp Refills Atorvastatin Calcium 20 MG Oral Tablet (Li*28 Tab*5 Sig: TAKE ONE TABLET BY MOUTH AT BEDTIME FOR CHOLESTEROL Authorizing Provider: TRIP LEMUS Ordering User: ARELI GRIGGS * Telephone Encounter - Areli Griggs RPh - 05/30/2024 8:17 PM EDT [facility] is currently not authorized to approve refills for the pended medication(s) per refill protocol. Please approve if appropriate. Thanks, Areli Griggs, PharmD Clinical Pharmacist Centralized Clinical Pharmacy Services ([facility]) [phone] 05/30/2024, 8:17 PM * Telephone Encounter - Areli Griggs RPh - 05/30/2024 8:16 PM EDT Pending Prescriptions: Disp Refills Atorvastatin Calcium 20 MG Oral Tablet (L*28 Tab*5 Sig: TAKE ONE TABLET BY MOUTH AT BEDTIME FOR CHOLESTEROL D3-1000 25 MCG (1000 UT) Oral Capsule (Ch*28 Cap*5 Sig: TAKE ONE CAPSULE BY MOUTH DAILY IN THE EVENING FOR SUPPLEMENT Last Visit: 12/20/2023 (in office), Visit date not found (telemedicine) Next Visit: 06/11/2024 If no future appointments scheduled, and last appointment is greater than a year ago, please schedule patient for a follow-up appointment Last date the medication was ordered: 12/27/23 Pharmacy: [facility] [address] Is this request for a controlled substance? No Urine Drug Screen:No results found for this or any previous visit. Patient Phone Numbers Labs: Lab Results Component Value Date/Time CREAT 1.3 (H) 12/20/2023 11:44 AM CREAT 1.2 06/27/2018 02:20 PM POTASSIUM 5.0 12/20/2023 11:44 AM POTASSIUM 4.2 06/27/2018 02:20 PM TSH 1.97 12/06/2022 09:44 AM TSH 2.88 12/25/2017 03:07 PM LDL 82 12/06/2022 09:44 AM LDL 108 06/27/2018 02:20 PM LDL NOT APPLICABLE 06/27/2018 02:20 PM ALT 13 12/20/2023 11:44 AM ALT <5 (L) 06/27/2018 02:20 PM HGBA1C 5.6 12/06/2022 09:44 AM documented in this encounter Plan of Treatment Upcoming Encounters Date Type Department Care Team (Late st Contact Info) Description 06/11/2024 10:20 AM EDT Office Visit General Internal Medicine [place] [address] [address] [place] [address] Trip Lemus MD [facility] [place] [address] 11/28/2024 1:00 PM EDT Office Visit General Internal Medicine [facility] [place] [address] [place] [address] Trip Lemus MD [address] [facility] [place] [address] Health Maintenance Due Date Last Done Comments [...] filedocumented as of this encounter Results * (ABNORMAL) LIPID PANEL WITH DIRECT LDL IF TG IS HIGH (05/28/2024 8:51 AM EDT) Triglycerides 121 <=174 mg/dL 05/30/2024 9:11 PM EDT LAB[facility] Comment: Triglyceride Reference Ranges (mg/dL): <150 Acceptable 150-174 Borderline high 175-499 High >=500 Very high Cholesterol 109 <200 mg/dL 05/30/2024 9:11 PM EDT [facility] Comment: Total Cholesterol Reference Ranges (mg/dL): <200 Desirable 200-239 Borderline high >=240 High HDL Cholesterol 30(L) >39 mg/dL 9:11 PM EDT [facility] Comment: HDL Cholesterol Reference Ranges (mg/dL): >=60 High (Desirable) <50 Low (Undesirable) For Females <40 Low (Undesirable) For Males Non-HDL Cholesterol 79 <=159 mg/dL 05/30/2024 9:11 PM EDT LAB[facility]ATORY [facility] Comment: Non-HDL Cholesterol Reference Range (mg/dL): <100 Target level for high risk ASCVD patient <130 Optimal for general population 130-159 Near optimal for general population 160-189 Borderline High 190-219 High >=220 Very High LDL Cholesterol 55 <=129 mg/dL 05/30/2024 9:11 PM EDT LABORATORY [facility] Comment: LDL Cholesterol Reference Ranges (mg/dL): <70 Target level for high risk ASCVD patient <100 Optimal for general population 100-129 Near optimal for general population 130-159 Borderline high 160-189 High >=190 Very high Blood Venous blood specimen / Unknown Venipuncture / Unknown 05/28/2024 8:51 AM EDT 05/28/2024 8:51 AM EDT [facility] LAB BLOOD ORDERABLES Performing Organization Address City/State/[facility] Co de Phone Number LABORATORY [facility] [address] [place] [address] documented in this encounter Visit Diagnoses Diagnosis Encounter for long-term (current) use of medications- Primary Encounter for long-term (current) use of other medications Vitamin D deficiency Unspecified vitamin D deficiency documented in this encounter Care Teams Transfer Station Operator Relationship Specialty Start Date End Date Trip Lemus MD [address] [place] [address] PCP - General Internal Medicine 12/22/17 documented as of this encounter
--- OUTSIDE RECORDS SUMMARY | 2024-10-13 15:10 | External Medical Summary | Summary of Care ---
Author Name Unknown Organization [facility] Address [address] [place] [address] Phone [phone] Care Team Providers Care Manager Of Loss Prevention Operations Name Role Phone Trip Segundo MD Primary Care Provider + Reason for Visit * Reason Onset Date Comments Health Maintenance 07/04/2024 Encounter Details Date Type Department Care Team (Late st Contact Info) Description 07/04/2024 Telephone General Internal Medicine [facility] [address] [facility] [place] [address] Trip Segundo MD [address] [place] [address] Health Maintenance Allergies Active Allergy Reactions Criticality Noted Date Comments Benztropine 11/02/2022 Severe confusion [place] Carbonate 10/04/2000 documented as of this encounter (statuses as of 07/04/2024) Medications Medication Sig Dispensed Refills Start Date [...] D3-1000 25 MCG (1000 UT) Oral Capsule (Cholecalciferol)Ind ications:Vitamin D deficiency TAKE ONE CAPSULE BY MOUTH DAILY IN THE EVENING FOR SUPPLEMENT 28 Capsule 5 05/31/2024 Active Temazepam 15 MG Oral Capsule (Restoril) 05/17/2024 Active documented as of this encounter (statuses as of 07/04/2024) Active Problems Problem Noted Date Diagnosed Date [...] as of this encounter (statuses as of 07/04/2024) Resolved Problems Problem Noted Date Diagnosed Date Resolved Date Benign hypertension with CKD (chronic kidney disease) stage III 05/19/2023 12/20/2023 Prediabetes 01/13/2022 01/10/2024 Leukemia 09/22/2015 12/25/2017 Overview: As a child Special screening for malign ant neoplasm of prostate 05/23/2013 09/22/2015 Joint symptoms of hand 05/23/201312/19 Illness 03/28/2013 09/22/2015 Overview: at [facility] Dementia 09/24/2021 documented as of this encounter (statuses as of 07/04/2024) Immunizations Name Administration Dates Next Due Pneumococcal [...] Telephone Encounter - Astrid Kline LPN - 07/04/2024 8:39 AM EST Care Gaps Comprehensive Care Outreach Last Office/Telemedicine Visit: 06/14/2024 (in office), Visit date not found (telemedicine) Next Office Visit: 11/28/2024 Hemoglobin AIC Results: Lab Results Component Value Date/Time HEMOGLOBIN A1C - [facility] 5.6 12/06/2022 09:44 AM HEMOGLOBIN A1C - [facility] 5.8 (H) 04/22/2022 09:44 AM HEMOGLOBIN A1C - [facility] 5.7 (H) 03/17/2022 08:55 AM BP Readings from Last 1 Encounters: 06/14/24 124/76 Reviewed Health Maintenance below: Health Maintenance Topic Date Due DISCUSS TOBACCO CESSATION (REFER TO SMARTSET #7471) Never done COVID-19 Vaccine (1) Never done Zoster Vaccines (1 of 2) Never done Colorectal Cancer Screening Never done Lung Cancer Screening Never done AAA Screening Never done Pneumococcal Vaccine: 65+ Years (2 of 2 - PCV) 01/12/2017 Colon we reached out in december declined and with pcp last month Aaa declined with pcp last month Care Gap Outreach Action Taken: Outreach not indicated documented in this encounter Plan of Treatment Upcoming Encounters Date Type Department Care Team (Late st Contact Info) Description 11/28/2024 1:00 PM EDT Office Visit General Internal Medicine [facility] [address] [place] [address] Trip Segundo MD [address] [place] [address] 03/20/2025 9:20 AM EDT Office Visit General Internal Medicine [facility] [address] [place] [address] Trip Segundo MD [address] [place] [address] Health Maintenance Due Date Last Done Comments DISCUSS TOBACCO CESSATION (REFER TO SMARTSET #3730) 1950 COVID-19 Vaccine (#1) 1956 Zoster Vaccines [...] filedocumented as of this encounter Care Teams Manager Of Loss Prevention Operations Relationship Specialty Start Date End Date Trip Segundo MD [address] [place] [address] PCP - General Internal Medicine 12/22/17 documented as of this encounter
--- NOTE | 2024-10-13 15:34 | Emergency Department Note ---
Impression & Plan Influenza A, Pneumonia, Hypoxia ED Provider Note HISTORY OF PRESENT ILLNESS: Patient is a 74-year-old male presenting with shortness of breath and congestion. Patient presents via EMS from a personal nursing home where he reports he has been "short of breath for a long time." He reports that his shortness of breath been significantly worse in the last 48 hours. He reports that he is also been congested for a number of weeks, but worse in the last 48 hours. Denies any chest pain. He reports feeling short of breath with minimal activities. He does not normally wear any supplemental oxygen at baseline. Denies any DVT or PE history. He is on a baby aspirin daily but no other anticoagulation. He denies any known fevers. He reports that there have been multiple sick contacts in his facility. He denies any lower extremity edema. Denies any history of cardiac stents. Patient reportedly had wheezes for EMS and was given 2 albuterol nebulizers prehospital. He reportedly had saturations of 89% on room air with EMS, and was started on supplemental oxygen. Arrival to the ER, the patient reports he just feels very short of breath. Denies any chest pain, abdominal pain, nausea or vomiting. ROS: as above PHYSICAL EXAM: Constitutional: Patient appears in no acute distress. HENT: Head: Normocephalic and atraumatic. Eyes: EOMI, PERRL Mouth/Throat: Mucous membranes moist. Neck: Trachea midline. Neck supple. Cardiovascular: Tachycardic with regular rhythm. No murmurs, rubs or gallops. Intact distal pulses. Pulmonary/Chest: No respiratory distress. Breath sounds clear and equal bilaterally. No wheezes or rales. Conversationally dyspneic. On 6L NC. Abdominal: Abdomen soft, no tenderness, rebound or guarding. Musculoskeletal: No edema, tenderness or deformity noted. Skin: Warm and dry. No rash, erythema, pallor or cyanosis Psychiatric: Appropriate mood and affect for situation. Neurological: Alert and keenly responsive. CN II-XII grossly intact, moving all extremities equally and fully. MDM: - Vitals signs showed hypoxia and tachycardia. Patient's saturation is 88 to 89% on room air. He was placed on 6 L nasal cannula and titrated down to about 2 L nasal cannula. - History obtained via patient. History as above. - Chronic conditions affecting care: HTN; COPD; schizophrenia; CKD - Differential diagnoses include, but are not limited to: Congestive heart failure; acute coronary syndrome; COPD/asthma exacerbation; pulmonary edema; pulmonary embolism; pneumonia; pneumothorax; viral syndrome - Order placed for continuous cardiac monitoring. At this time, monitor showed rate of 100 bpm with normal sinus rhythm, per my interpretation. - External medical records reviewed. Discharge summary dated 12/14/2023 was reviewed. Patient was admitted to the hospital for acute exacerbation of COPD in the setting of COVID-19 infection. - EKG image interpreted by myself showed normal sinus rhythm. Rate 101 bpm. QT 332. No acute ischemic changes. - Laboratory workup interpreted by myself showed leukocytosis (WBC 10.81); normal PT/INR; slight CKD; normal troponin; normal BNP - UA negative for infection - VBG normal - Viral respiratory panel positive for influenza A - CXR image reviewed by myself showed what appears to be a left pleural effusion, per my interpretation. Radiology notes "left lower lung zone airspace opacity concerning for infiltrate with possible small effusion." - CT PE negative for PE. - Given patient's new oxygen requirement, will admit to hospitalist service. - Discussion was had with major case detective about patient's case and need for admission - Hospitalist consulted for admission - Patient admitted to [facility] hospitalist service for further evaluation and management. ASSESSMENT AND PLAN: Diagnosis: Acute hypoxia; influenza A; pneumonia Plan: Admit Past Med/Surg History Problem List (Updated 10/13/24 @ 18:39 by Lucia Hendricks MD) Hypoxia (Acute) Pneumonia (Acute) Influenza A (Acute) Hypertensive urgency Acute hypoxic respiratory failure Influenza A Acute exacerbation of chronic obstructive pulmonary disease (Acute) Elevated brain natriuretic peptide (BNP) level (Acute) Non-ST elevation DC (NSTEMI) (Acute) Acute hypoxemic respiratory failure (Acute) Shortness of breath (Acute) Hyponatremia (Acute) Nicotine addiction Schizophrenia (Acute) COPD (chronic obstructive pulmonary disease) (Acute) Hypertension (Acute) Encounter for pre-operative examination Medical History (Updated 10/13/24 @ 18:39 by Lucia Hendricks MD) Acute renal failure Nonadherence to medication Dehydration Smoker Dementia Non-compliant patient BOSCH (dyspnea on exertion) History of leukemia NSVT (nonsustained ventricular tachycardia) IN SETTING OF INFLUENZA AUG 2017 - 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 Schizophrenia Hypertension Chronic obstructive pulmonary disease Bronchitis Surgical History Hx of right cataract extraction History of tooth extraction Family History Other Family history non-contributory Social History Smoking Status: Current every day smoker Tobacco Type: Cigarettes Cigarettes Per Day: 2-3 ppd; Second Hand Exposure: No; Do You Dip or Chew Tobacco: No; Hx Alcohol Use: No Hx Substance Use: No Preferred Language: Yoruba Communication Ability: Impaired Rehabilitation Services Coordinator Required: No Beliefs That Will Affect Care: None Current Living Situation: Personal Care Facility Current Living Situation Comment: [facility] Feels Safe at Home: Yes Assistive Devices: None Allergies Allergies Allergy/AdvReac Type Severity Reaction Status Date / Time lithium Allergy Unknown Verified 12/10/23 19:47 Home Meds Home Medications Medication Instructions Recorded Confirmed acetaminophen 500 mg tablet 1,000 mg PO Q8 PRN Fever Or Pain 10/23/22 12/10/23 (Tylenol Extra Strength) cholecalciferol (vitamin D3) 125 125 mcg PO DAILY 10/23/22 12/10/23 mcg (5,000 unit) tablet (Vitamin D3) diphenhydramine HCl 25 mg tablet 25 mg PO BID PRN Insomnia 10/23/22 12/10/23 (Benadryl Allergy) haloperidol 5 mg tablet 5 mg PO BID 10/23/22 12/10/23 haloperidol decanoate 100 mg/mL 100 mg IM .[id number] 10/23/22 12/10/23 intramuscular solution propranolol 20 mg tablet 20 mg PO BID 10/23/22 12/10/23 aspirin 81 mg chewable tablet 81 mg PO DAILY 12/10/23 12/10/23 (Children's Aspirin) atorvastatin 20 mg tablet 20 mg PO HS 12/10/23 12/10/23 fluoxetine 40 mg capsule 40 mg PO DAILY 12/10/23 12/10/23 hydroxyzine HCl 10 mg tablet 10 mg PO TID 12/10/23 12/10/23 lorazepam 0.5 mg tablet 0.5 mg PO HS 12/10/23 12/10/23 methylphenidate HCl 10 mg tablet 10 mg PO BID 12/10/23 12/10/23 pantoprazole 40 mg tablet,delayed 40 mg PO DAILY 12/10/23 12/10/23 release Previous Rx's Medication Instructions Recorded amlodipine 5 mg tablet (Norvasc) 5 mg PO QAM #30 tabs 12/14/23 doxycycline hyclate 100 mg tablet 100 mg PO BID #10 tabs 12/14/23 ipratropium 0.5 mg-albuterol 3 mg 3 ml NEB Q4H PRN shortness of 12/14/23 (2.5 mg base)/3 mL nebulization breath or wheezing #90 mL soln prednisone 10 mg tablet 10 mg PO DIRECTED #12 tabs 12/14/23 Results & Data (ED) Vital Signs Vital Signs - 24 hr 10/13/24 15:21 10/13/24 15:40 10/13/24 16:38 Temperature 36.9 C Temperature Source Oral Pulse Rate 109 H 109 H Pulse Rate [Apical] Pulse Rhythm Regular Pulse Strength Normal Pulse Strength [Apical] Respiratory Rate 24 Respiratory Effort / Characteristics Non-Labored Spontaneous Respiratory Depth Normal Respiratory Pattern Regular Blood Pressure 156/122 H Blood Pressure [Right Arm] Blood Pressure Mean 133 Blood Pressure Mean [Right Arm] Blood Pressure Position Sitting Blood Pressure Position [Right Arm] Pulse Oximetry 94 96 Oxygen Delivery Method Nasal Cannula Nasal Cannula Oxygen Flow Rate 6 6 Sepsis Recent Fever Within 48 Hours No Sepsis New/Unexplained Change in Mental Status No Sepsis Action Taken by Nursing Physician Notified Oxygen Flow Rate - Titration Pulse Oximetry Post Tiitration 10/13/24 17:10 10/13/24 18:04 10/13/24 18:33 Temperature Temperature Source Pulse Rate Pulse Rate [Apical] 109 H 112 H Pulse Rhythm Pulse Strength Pulse Strength [Apical] Normal Normal Respiratory Rate 21 19 Respiratory Effort / Characteristics Non-Labored Spontaneous Non-Labored Spontaneous Respiratory Depth Normal Normal Respiratory Pattern Regular Regular Blood Pressure Blood Pressure [Right Arm] 151/107 H Blood Pressure Mean Blood Pressure Mean [Right Arm] 121 Blood Pressure Position Blood Pressure Position [Right Arm] Lying Pulse Oximetry 96 95 88 L Oxygen Delivery Method Nasal Cannula Nasal Cannula Nasal Cannula Oxygen Flow Rate 2 5 0 Sepsis Recent Fever Within 48 Hours Sepsis New/Unexplained Change in Mental Status Sepsis Action Taken by Nursing Oxygen Flow Rate - Titration 3 Pulse Oximetry Post Tiitration 91 Laboratory Data 10/13/24 15:17 10/13/24 15:17 Lab Results 10/13/24 10/13/24 10/13/24 Range/Units 15:17 15:58 18:23 WBC 10.81 H (4.8-10.8) K/ul RBC 4.86 (4.70-6.10) M/uL Hgb 14.1 (14.0-18.0) g/dl Hct 43.2 (42.0-52.0) % MCV 88.9 (80.0-100.0) fL MCH 29.0 (25.0-34.0) pg MCHC 32.6 (32.0-36.0) g/dL RDW Std Deviation 48.0 H (36.4-46.3) fL RDW Coeff of Demond 14.9 H (11.5-14.5) % Plt Count 250 (130-400) K/uL MPV 10.1 (9.4-12.4) fL Immature Gran % (Auto) 0.6 % Neut % (Auto) 87.4 % Lymph % (Auto) 3.5 % [place] % (Auto) 6.9 % Eos % (Auto) 1.0 % Baso % (Auto) 0.6 % Neut # (Auto) 9.43 H (1.40-6.50) K/uL Lymph # (Auto) 0.38 L (1.20-3.40) K/uL [place] # (Auto) 0.75 H (0.11-0.59) K/uL Eos # (Auto) 0.11 (0.00-0.50) K/uL Baso # (Auto) 0.07 (0.00-0.20) K/uL Immature Gran # (Auto) 0.07 (0.01-0.20) K/uL PT 10.4 (9.0-12.0) Seconds INR 1.0 (0.9-1.1) VBG pH 7.37 (7.36-7.41) VBG pCO2 48 (38-50) mmHg VBG pO2 46 mmHg VBG HCO3 28 mmol/L VBG O2 Saturation 79.8 % VBG Base Excess 1.7 mEq/L Sodium 138 (136-145) mmol/L Potassium 4.5 (3.5-5.1) mmol/L Chloride 105 (98-107) mmol/L Carbon Dioxide 28 (21-32) mmol/L Anion Gap 5 (3-11) BUN 21 (6-23) mg/dl Creatinine 1.41 H (0.6-1.4) mg/dl Est Cr Clr Drug Dosing 50.5 ml/min eGFR 52.62 BUN/Creatinine Ratio 14.9 (10-20) Glucose 119 H (70-99(Fasting)) mg/dl Lactate 1.1 (0.4-2.0) mmol/L Calcium 8.9 (8.6-10.3) mg/dl Magnesium 1.7 (1.7-2.4) mg/dl Total Bilirubin 0.4 (0.2-1.0) mg/dl AST 17 (13-39) U/L ALT 11 (7-52) U/L Alkaline Phosphatase 53 (34-104) U/L Troponin I High Sens 10.8 (0-20) pg/ml B-Natriuretic Peptide 36 (0-100) pg/ml Total Protein 6.8 (6.0-8.3) gm/dl Albumin 4.4 (3.4-5.0) gm/dl Globulin 2.4 L (2.5-4.0) gm/dl Albumin/Globulin Ratio 1.8 (0.9-2) Urine Color Yellow Urine Appearance Clear (Clear) Urine pH 7.5 (4.5-7.5) Ur Specific [place] 1.014 (1.000-1.030) Urine Protein Negative (Negative) Urine Glucose (UA) Negative (Negative) Urine Ketones Negative (Negative) Urine Blood Negative (Negative) Urine Nitrite Negative (Negative) Urine Bilirubin Negative (Negative) Urine Urobilinogen Negative (Negative) Ur Leukocyte Esterase Negative (Negative) Adenovirus (PCR) Not Detected (NotDetected) B. pertussis DNA (PCR) Not Detected (NotDetected) B.parapertussis DNA PCR Not Detected (NotDetected) C. pneumoniae DNA (PCR) Not Detected (NotDetected) Coronavirus OC43 (PCR) Not Detected (NotDetected) Coronavirus HKU1 (PCR) Not Detected (NotDetected) Coronavirus 229E (PCR) Not Detected (NotDetected) SARS-CoV-2 (PCR) Not Detected (NotDetected) Coronavirus NL63 (PCR) Not Detected (NotDetected) Human Metapneumovir PCR Not Detected (NotDetected) Influenza A (H3) PCR DETECTED A (NotDetected) Influenza Type B (PCR) Not Detected (NotDetected) M. pneumoniae (PCR) Not Detected (NotDetected) Parainfluenza 1 (PCR) Not Detected (NotDetected) Parainfluenza 2 (PCR) Not Detected (NotDetected) Parainfluenza 3 (PCR) Not Detected (NotDetected) Parainfluenza 4 (PCR) Not Detected (NotDetected) RSV (PCR) Not Detected (NotDetected) Entero/Rhino (PCR) Not Detected (NotDetected) Administered Medications Discontinued Medications Ioversol (Optiray 320 125ml) 120 ml IV ONCE ONE Stop: 10/13/24 16:31 Last Admin: 10/13/24 16:30 Dose: 120 ml Documented By: Imaging Data Radiologist's Impression: Chest X-Ray 10/13/24 15:30 EXAM: XR chest 1V portable CLINICAL HISTORY: Dyspnea TECHNIQUE: An X-ray image of the chest was obtained in AP view. COMPARISON: 12/10/2023 CR FINDINGS: There is an ill-defined airspace opacity is seen at the left lower lung zone, silhouetting the left diaphragmatic border suggesting possible consolidation. The left costophrenic angle is indistinct. The rest of both lungs are clear. The right lung is clear. The right costophrenic angle is clear. Normal cardiac size and shape. Unremarkable thoracic bony cage. Cardiac monitoring electrodes. IMPRESSION: Left lower lung zone airspace opacity likely developing infiltrate with possible small effusion. New finding. Correlate clinically. Follow-up recommended. Electronically signed by Percy Bustillos 10-13-2024 4:53 PM Chest CTA 10/13/24 16:22 EXAM: CT angio chest PE protocol CLINICAL HISTORY: PE; hypoxia TECHNIQUE: CT angiography of the chest was performed with and without intravenous contrast with the following protocol: axial images with, reconstructed coronal and sagittal images. Non-contrast images were initially acquired, followed by contrast-enhanced images in arterial and venous phases. Intravenous contrast optiray 320 120ml was administered using automated injection techniques. Bolus tracking was employed to optimize arterial phase imaging. One of these 3D techniques was utilized: Maximum Intensity Pixel (MIP), 3D Reconstructed Images, Volume Rendered Images, Surface Shaded Rendering. One of the following dose reduction techniques was utilized for this exam: Automated exposure control, adjustment of the mA and/or kV according to patient size, and use of iterative reconstruction. DLP 809.10 COMPARISON: 12/10/2023. FINDINGS: Aorta and Great Vessels: Ascending Aorta: Normal in caliber, no aneurysm, dissection, or significant atherosclerosis. Aortic Arch: Normal in caliber, no aneurysm, dissection, or significant atherosclerosis. Descending Aorta: Normal in caliber, no aneurysm, dissection, or significant atherosclerosis. Pulmonary Arteries: The main pulmonary artery and its branches are patent. No evidence of pulmonary embolism or significant stenosis. Heart: Cardiac Chambers: Normal in size. No evidence of cardiomegaly. Pericardium: No pericardial effusion or thickening. Lungs and Pleura: Mild bilateral flores acinar emphysematous changes. No consolidation, collapse, or focal lesions. No pleural effusion or pleural thickening. Mediastinum: No mediastinal mass or abnormal lymphadenopathy. Normal appearance of the trachea and central bronchi. Hilar Structures: Left hilar calcified nodule. Stable Hilar structures are normal without enlargement. Chest Wall: No mass lesions or abnormalities in the chest wall. Vascular Structures: Superior Vena Cava: Patent without evidence of stenosis or thrombus. Bones and Soft Tissues: Small sliding hiatus hernia with distal esophageal wall thickening. Stable Calcified granuloma of the spleen. Stable No fractures, lytic, or blastic lesions of the visualized bony structures. Soft tissues are unremarkable. IMPRESSION: 1. No CT signs of acute pulmonary embolism and examination of the pulmonary trunk and its branches still the third generation 2. Mild bilateral flores acinar emphysematous changes. stable Electronically signed by Percy Bustillos 10-13-2024 5:36 PM Discharge Plan Visit Data Chief Complaint: Flu Like Symptoms Stated Complaint: CHEST CONGESTION, ILLNESS ED Provider: Lucia Hendricks Discharge Problem: Influenza A, Pneumonia, Hypoxia Forms Stand Alone Forms: [facility] Prescriptions Prescriptions: No Action haloperidol 5 mg tablet 5 mg PO BID haloperidol decanoate 100 mg/mL Solution 100 mg IM .[id number] acetaminophen [Tylenol Extra Strength] 500 mg Tablet 1,000 mg PO Q8 PRN (Reason: Fever Or Pain) diphenhydramine HCl [Benadryl Allergy] 25 mg Tablet 25 mg PO BID PRN (Reason: Insomnia) propranolol 20 mg tablet 20 mg PO BID cholecalciferol (vitamin D3) [Vitamin D3] 125 mcg (5,000 unit) Tablet 125 mcg PO DAILY fluoxetine 40 mg capsule 40 mg PO DAILY methylphenidate HCl 10 mg tablet 10 mg PO BID pantoprazole 40 mg tablet,delayed release (DR/EC) 40 mg PO DAILY atorvastatin 20 mg tablet 20 mg PO HS aspirin [Children's Aspirin] 81 mg Tablet,Chewable 81 mg PO DAILY lorazepam 0.5 mg tablet 0.5 mg PO HS hydroxyzine HCl 10 mg tablet 10 mg PO TID amlodipine [Norvasc] 5 mg Tablet 5 mg PO QAM Qty: 30 0RF ipratropium-albuterol 0.5 mg-3 mg(2.5 mg base)/3 mL Solution For Nebulization 3 ml NEB Q4H PRN (Reason: shortness of breath or wheezing) Qty: 90 0RF prednisone 10 mg tablet 10 mg PO DIRECTED Qty: 12 0RF Rx Instructions: Start taking prednisone 30 mg daily for 2 days, then take 20 mg daily for 2 days, then take 10 mg daily for 2 days and stop doxycycline hyclate 100 mg tablet 100 mg PO BID Qty: 10 0RF Referrals Referrals: Daniele [facility] [Primary Care Provider] -
[2024-10-13 15:44] LABS: Base Excess VBG 1.7 mEq/L; HCO3 VBG 28 mmol/L; Oxygen Saturation VBG 79.8 %; PCO2 VBG 48 mmHg (38-50); PO2 VBG 46 mmHg; pH VBG 7.37 (7.36-7.41)
[2024-10-13 15:50] LABS: Basophils # (auto) 0.07 K/uL (0.00-0.20); Basophils % (auto) 0.6 %; Eosinophils # (auto) 0.11 K/uL (0.00-0.50); Hematocrit (blood only) 43.2 % (42.0-52.0); Hemoglobin 14.1 g/dl (14.0-18.0); Immature Granulocytes # (auto) 0.07 K/uL (0.01-0.20); Immature Granulocytes % (auto) 0.6 %; Lymphocytes # (auto) 0.38 K/uL (1.20-3.40); Lymphocytes % (auto) 3.5 %; Mean Corpuscular Hgb Conc 32.6 g/dL (32.0-36.0); Mean Corpuscular Volume 88.9 fL (80.0-100.0); Mean Platelet Volume 10.1 fL (9.4-12.4); Monocytes # (auto) 0.75 K/uL (0.11-0.59); Monocytes % (auto) 6.9 %; Neutrophils # (auto) 9.43 K/uL (1.40-6.50); Neutrophils % (auto) 87.4 %; Platelet Count 250 K/uL (130-400); RDW Coefficient of Variation 14.9 % (11.5-14.5); Red Blood Count 4.86 M/uL (4.70-6.10); White Blood Count 10.81 K/ul (4.8-10.8)
[2024-10-13 15:54] LABS: Prothrombin Time 10.4 Seconds (9.0-12.0)
[2024-10-13 16:05] LABS: Albumin Level 4.4 gm/dl (3.4-5.0); Bilirubin,Total 0.4 mg/dl (0.2-1.0); Calcium 8.9 mg/dl (8.6-10.3); Magnesium 1.7 mg/dl (1.7-2.4); Potassium 4.5 mmol/L (3.5-5.1)
[2024-10-13 16:11] LABS: Albumin Globulin Ratio 1.8 (0.9-2); BUN Creatinine Ratio 14.9 (10-20); Creatinine Clr Calc Pharmacy 50.5 ml/min; Globulin 2.4 gm/dl (2.5-4.0); Total Protein 6.8 gm/dl (6.0-8.3)
[2024-10-13 16:17] LABS: Appearance Urine Clear (Clear); Bilirubin Urine Negative (Negative); Blood Urine Negative (Negative); Color Urine Yellow; Glucose Urine UA Negative (Negative); Ketones Urine Negative (Negative); Leukocyte Esterase Urine Negative (Negative); Nitrite Urine Negative (Negative); Protein Urine Negative (Negative); Specific Gravity Urine 1.014 (1.000-1.030); Urobilinogen Urine Negative (Negative); pH Urine 7.5 (4.5-7.5)
[2024-10-13 16:26] LABS: Troponin I High Sensitivity 10.8 pg/ml (0-20)
[2024-10-13] MEDS: OPTIRAY 320 125ml IV ONE (16:30)
[2024-10-13 16:41] LABS: Adenovirus PCR Not Detected (NotDetected); Bordetella parapertussis PCR Not Detected (NotDetected); Bordetella pertussis PCR Not Detected (NotDetected); Chlamydia pneumoniae PCR Not Detected (NotDetected); Coronavirus 229E PCR Not Detected (NotDetected); Coronavirus CoV-2 (COVID19)PCR Not Detected (NotDetected); Coronavirus HKU1 PCR Not Detected (NotDetected); Coronavirus NL63 PCR Not Detected (NotDetected); Coronavirus OC43PCR Not Detected (NotDetected); Human Metapneumovirus PCR Not Detected (NotDetected); Influenza A (H3) PCR DETECTED (NotDetected); Influenza B PCR Not Detected (NotDetected); Mycoplasma pneumoniae PCR Not Detected (NotDetected); Parainfluenza Virus 1 PCR Not Detected (NotDetected); Parainfluenza Virus 2 PCR Not Detected (NotDetected); Parainfluenza Virus 3 PCR Not Detected (NotDetected); Parainfluenza Virus 4 PCR Not Detected (NotDetected); Respiratory Syncytial VirusPCR Not Detected (NotDetected); Rhinovirus/Enterovirus PCR Not Detected (NotDetected)
--- NOTE | 2024-10-13 16:54 | XRay Report ---
EXAM: XR chest 1V portable CLINICAL HISTORY: Dyspnea TECHNIQUE: An X-ray image of the chest was obtained in AP view. COMPARISON: 12/10/2023 CR FINDINGS: There is an ill-defined airspace opacity is seen at the left lower lung zone, silhouetting the left diaphragmatic border suggesting possible consolidation. The left costophrenic angle is indistinct. The rest of both lungs are clear. The right lung is clear. The right costophrenic angle is clear. Normal cardiac size and shape. Unremarkable thoracic bony cage. Cardiac monitoring electrodes. IMPRESSION: Left lower lung zone airspace opacity likely developing infiltrate with possible small effusion. New finding. Correlate clinically. Follow-up recommended. Electronically signed by Percy Bustillos 10-13-2024 4:53 PM
--- NOTE | 2024-10-13 17:36 | CT Scan Report ---
EXAM: CT angio chest PE protocol CLINICAL HISTORY: PE; hypoxia TECHNIQUE: CT angiography of the chest was performed with and without intravenous contrast with the following protocol: axial images with, reconstructed coronal and sagittal images. Non-contrast images were initially acquired, followed by contrast-enhanced images in arterial and venous phases. Intravenous contrast optiray 320 120ml was administered using automated injection techniques. Bolus tracking was employed to optimize arterial phase imaging. One of these 3D techniques was utilized: Maximum Intensity Pixel (MIP), 3D Reconstructed Images, Volume Rendered Images, Surface Shaded Rendering. One of the following dose reduction techniques was utilized for this exam: Automated exposure control, adjustment of the mA and/or kV according to patient size, and use of iterative reconstruction. DLP 809.10 COMPARISON: 12/10/2023. FINDINGS: Aorta and Great Vessels: Ascending Aorta: Normal in caliber, no aneurysm, dissection, or significant atherosclerosis. Aortic Arch: Normal in caliber, no aneurysm, dissection, or significant atherosclerosis. Descending Aorta: Normal in caliber, no aneurysm, dissection, or significant atherosclerosis. Pulmonary Arteries: The main pulmonary artery and its branches are patent. No evidence of pulmonary embolism or significant stenosis. Heart: Cardiac Chambers: Normal in size. No evidence of cardiomegaly. Pericardium: No pericardial effusion or thickening. Lungs and Pleura: Mild bilateral flores acinar emphysematous changes. No consolidation, collapse, or focal lesions. No pleural effusion or pleural thickening. Mediastinum: No mediastinal mass or abnormal lymphadenopathy. Normal appearance of the trachea and central bronchi. Hilar Structures: Left hilar calcified nodule. Stable Hilar structures are normal without enlargement. Chest Wall: No mass lesions or abnormalities in the chest wall. Vascular Structures: Superior Vena Cava: Patent without evidence of stenosis or thrombus. Bones and Soft Tissues: Small sliding hiatus hernia with distal esophageal wall thickening. Stable Calcified granuloma of the spleen. Stable No fractures, lytic, or blastic lesions of the visualized bony structures. Soft tissues are unremarkable. IMPRESSION: 1. No CT signs of acute pulmonary embolism and examination of the pulmonary trunk and its branches still the third generation 2. Mild bilateral flores acinar emphysematous changes. stable Electronically signed by Percy Bustillos 10-13-2024 5:36 PM
--- NOTE | 2024-10-13 18:03 | History & Physical Report ---
Date of Service October 13, 2024 Assessment & Plan (1) Sepsis: (2) Influenza A: (3) Acute hypoxic respiratory failure: (4) Acute exacerbation of chronic obstructive pulmonary disease: Plan: Trip Parrish is a 74y/o M with PMHx significant for HTN, nonsustained ventricular tachycardia, panlobular emphysema/COPD, prediabetes, CKD stage III, childhood leukemia s/p treatment, chronic paranoid schizophrenia, mood disorder, tobacco use disorder and history of psychosis who presented to the ED via EMS from [facility] for evaluation of flulike symptoms and worsening SOB. Was initially sating at 89% on RA per EMS and on 6L NC upon presentation to the ED. Received 2 albuterol nebulizer treatments en route to the ED. Now has been titrated down to 3L NC - saturating in the low to mid 90s. Meets sepsis criteria on admission given HR>100, RR>20 and source of infection. Initial labs reviewed. Negative lactate. Negative procalcitonin. Positive for influenza A. CXR concerning for left lower lung zone airspace opacity likely developing infiltrate with possible small effusion. Chest CTA negative for PE. Check nasal MRSA swab. Start IV Rocephin + po doxycycline. Noted wheezing on exam. Start IV Decadron 6mg Q24H. 1L NSS x 1 bag. Blood + sputum cxs pending. Pulmonary toileting with ISP and flutter valve. Scheduled Duonebs Q6H. Droplet precautions. Mucinex BID. Attempt to wean O2 requirement as tolerated. Encourage smoking cessation. Would ultimately benefit from initiation of maintenance inhaler therapy at time of discharge. (5) Hypertensive urgency: Plan: SBP ranging from 160s-190s in the ED. Now s/p 5mg IV hydralazine. Continue to closely monitor BP. Continue home amlodipine and propranolol. (6) Chronic paranoid schizophrenia: Plan: Chronic, stable. Continue home behavioral medications including Prozac, Haldol, Ritalin and Remeron. (7) CKD (chronic kidney disease) stage 3, GFR 30-59 ml/min: Plan: Cr stable on admission. Baseline Cr around 1.2-1.4; avoid nephrotoxic agents as able. Monitor renal function closely and renally dose medications when able. DVT Prophylaxis: SQ Heparin Code Status: FULL CODE PCP: [facility] Disposition: Admit to PCU/Telemetry for further inpatient evaluation and management. Patient seen in collaboration with Dr. Campos. Please see addendum. I spent a total of 60 minutes coordinating, documenting, and providing care for this patient excluding time spent in the performance of separately billed services or time spent by another provider/QHP. This included personally reviewing all current laboratories and imaging studies, medical reconciliation, outpatient chart review and discussion with specialists. This chart was completed in part utilizing Speech Voice Recognition Software. G rammatical errors, random word insertions, pronoun errors, and incomplete sentences are an occasional consequence of this system due to software limitations, ambient noise, and hardware issues. Any formal questions or concerns about the content, text, or information contained within the body of this dictation should be directly addressed to the provider for clarification. History of Present Illness Chief Complaint: SOB, Congestion Primary Care Provider: [employer] [employer] [facility] Trip Parrish is a 74y/o M with PMHx significant for HTN, nonsustained ventricular tachycardia, panlobular emphysema/COPD, prediabetes, CKD stage III, childhood leukemia s/p treatment, chronic paranoid schizophrenia, mood disorder, tobacco use disorder and history of psychosis who presented to the ED via EMS from [facility] for evaluation of flulike symptoms and worsening SOB. History obtained from the patient, discussion with ED provider and associated chart review. Patient seen at bedside with Dr. Campos. Patient with increasing shortness of breath over the last week, but notes his breathing has significantly declined more so over the last 48 hours. Endorses feeling congested for a number of weeks but again this has also worsened over the last 48 hours. Denies any chest pain. Mentions feeling extremely short of breath with minimal exertion. Minimal nonproductive cough. No recorded fevers. Normally does not wear any supplemental oxygen at baseline. He was hypoxic at 89% SpO2 on RA per EMS on his first set of vitals. He was initially on 6L NC upon presentation to ED. Received 2 albuterol nebulizer treatments en route to ED. Now has been titrated down to 3L NC and saturating well at the time of our evaluation. He notes some mild improvement in his breathing. Currently smokes 2ppd. Meets sepsis criteria on admission given HR>100, RR>20 and source of infection. Positive for influenza A on respiratory [employer] panel. CXR concerning for left lower lung zone airspace opacity likely developing infiltrate with possible sma ll effusion. Chest CTA negative for PE. Also with significantly elevated SBP ranging in the 150s to 190s in the ED. Allergies Allergy/AdvReac Type Severity Reaction Status Date / Time lithium Allergy Unknown Verified 12/10/23 19:47 Home Medications Medication Instructions Recorded Confirmed Type acetaminophen 500 mg tablet 1,000 mg PO Q8 PRN Fever Or Pain 10/23/22 10/13/24 History (Tylenol Extra Strength) haloperidol 5 mg tablet 5 mg PO BID 10/23/22 10/13/24 History propranolol 20 mg tablet 20 mg PO BID 10/23/22 10/13/24 History aspirin 81 mg chewable tablet 81 mg PO DAILY 12/10/23 10/13/24 History (Children's Aspirin) atorvastatin 20 mg tablet 20 mg PO HS 12/10/23 10/13/24 History fluoxetine 40 mg capsule 40 mg PO DAILY 12/10/23 10/13/24 History methylphenidate HCl 10 mg tablet 10 mg PO BID 12/10/23 10/13/24 History pantoprazole 40 mg tablet,delayed 40 mg PO DAILY 12/10/23 10/13/24 History release amlodipine 5 mg tablet (Norvasc) 5 mg PO QAM #30 tabs 12/14/23 10/13/24 Rx ipratropium 0.5 mg-albuterol 3 mg 3 ml NEB Q4H PRN shortness of 12/14/23 10/13/24 Rx (2.5 mg base)/3 mL nebulization breath or wheezing #90 mL soln cholecalciferol (vitamin D3) 25 25 mcg PO QPM 10/13/24 10/13/24 History mcg (1,000 unit) capsule (Vitamin D3) diphenhydramine HCl 50 mg capsule 50 mg PO BID PRN eps 10/13/24 10/13/24 History mirtazapine 30 mg tablet 30 mg PO HS 10/13/24 10/13/24 History sodium chloride 1,000 mg soluble 1,000 mg PO TID 10/13/24 10/13/24 History tablet Past Med/Surg History Problem List (Updated 10/13/24 @ 19:54 by Chantal Lees PA-C) CKD (chronic kidney disease) stage 3, GFR 30-59 ml/min Chronic paranoid schizophrenia Sepsis Hypoxia (Acute) Pneumonia (Acute) Influenza A (Acute) Hypertensive urgency Acute hypoxic respiratory failure Influenza A Acute exacerbation of chronic obstructive pulmonary disease (Acute) Elevated brain natriuretic peptide (BNP) level (Acute) Non-ST elevation [place] (NSTEMI) (Acute) Acute hypoxemic respiratory failure (Acute) Shortness of breath (Acute) Hyponatremia (Acute) Nicotine addiction Schizophrenia (Acute) COPD (chronic obstructive pulmonary disease) (Acute) Hypertension (Acute) Encounter for pre-operative examination Medical History (Updated 10/13/24 @ 19:54 by Chantal Lees PA-C) Acute renal failure Nonadherence to medication Dehydration Smoker Dementia Non-compliant patient BOSCH (dyspnea on exertion) History of leukemia NSVT (nonsustained ventricular tachycardia) IN SETTING OF INFLUENZA AUG 2017 - DECLINED TO SEE DIGITAL STRATEGIST PER MEDICAL RECORD Schizophrenia Hypertension Chronic obstructive pulmonary disease Bronchitis Surgical History Hx of right cataract extraction History of tooth extraction Family History Other Family history non-contributory Social History Smoking Status: Current every day smoker Tobacco Type: Cigarettes Cigarettes Per Day: 2-3 ppd; Second Hand Exposure: No; Do You Dip or Chew Tobacco: No; Hx Alcohol Use: No Hx Substance Use: No Preferred Language: Ukrainian Communication Ability: Impaired 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 Physical Exam Physical Exam: Please refer to Dr. Campos's addendum for physical examination findings. Results & Data Results & Data Vital Signs (Past 12 Hours) Vital Signs Temp Pulse Pulse Resp BP Pulse Ox O2 Del Method 10/13/24 17:10 109 H 21 96 Nasal Cannula 10/13/24 16:38 109 H 10/13/24 15:40 96 Nasal Cannula 10/13/24 15:21 36.9 C 109 H 24 156/122 H 94 Nasal Cannula O2 Flow Rate 10/13/24 17:10 2 10/13/24 16:38 10/13/24 15:40 6 10/13/24 15:21 6 Laboratory Results Short CBC 10/13/24 Range/Units 15:17 WBC 10.81 H (4.8-10.8) K/ul Hgb 14.1 (14.0-18.0) g/dl Hct 43.2 (42.0-52.0) % Plt Count 250 (130-400) K/uL BMP 10/13/24 15:17 Sodium 138 Potassium 4.5 Chloride 105 Carbon Dioxide 28 BUN 21 Creatinine 1.41 H Glucose 119 H Calcium 8.9 Liver Function 10/13/24 Range/Units 15:17 Total Bilirubin 0.4 (0.2-1.0) mg/dl AST 17 (13-39) U/L ALT 11 (7-52) U/L Alkaline Phosphatase 53 (34-104) U/L Albumin 4.4 (3.4-5.0) gm/dl Urine 10/13/24 Range/Units 15:58 Urine Color Yellow Urine Appearance Clear (Clear) Urine pH 7.5 (4.5-7.5) Ur Specific [place] 1.014 (1.000-1.030) Urine Protein Negative (Negative) Urine Glucose (UA) Negative (Negative) Diagnostic Findings Chest X-Ray 10/13/24 15:30 EXAM: XR chest 1V portable CLINICAL HISTORY: Dyspnea TECHNIQUE: An X-ray image of the chest was obtained in AP view. COMPARISON: 12/10/2023 CR FINDINGS: There is an ill-defined airspace opacity is seen at the left lower lung zone, silhouetting the left diaphragmatic border suggesting possible consolidation. The left costophrenic angle is indistinct. The rest of both lungs are clear. The right lung is clear. The right costophrenic angle is clear. Normal cardiac size and shape. Unremarkable thoracic bony cage. Cardiac monitoring electrodes. IMPRESSION: Left lower lung zone airspace opacity likely developing infiltrate with possible small effusion. New finding. Correlate clinically. Follow-up recommended. Electronically signed by Percy Bustillos 10-13-2024 4:53 PM Chest CTA 10/13/24 16:22 EXAM: CT angio chest PE protocol CLINICAL HISTORY: PE; hypoxia TECHNIQUE: CT angiography of the chest was performed with and without intravenous contrast with the following protocol: axial images with, reconstructed coronal and sagittal images. Non-contrast images were initially acquired, followed by contrast-enhanced images in arterial and venous phases. Intravenous contrast optiray 320 120ml was administered using automated injection techniques. Bolus tracking was employed to optimize arterial phase imaging. One of these 3D techniques was utilized: Maximum Intensity Pixel (MIP), 3D Reconstructed Images, Volume Rendered Images, Surface Shaded Rendering. One of the following dose reduction techniques was utilized for this exam: Automated exposure control, adjustment of the mA and/or kV according to patient size, and use of iterative reconstruction. DLP 809.10 COMPARISON: 12/10/2023. FINDINGS: Aorta and Great Vessels: Ascending Aorta: Normal in caliber, no aneurysm, dissection, or significant atherosclerosis. Aortic Arch: Normal in caliber, no aneurysm, dissection, or significant atherosclerosis. Descending Aorta: Normal in caliber, no aneurysm, dissection, or significant atherosclerosis. Pulmonary Arteries: The main pulmonary artery and its branches are patent. No evidence of pulmonary embolism or significant stenosis. Heart: Cardiac Chambers: Normal in size. No evidence of cardiomegaly. Pericardium: No pericardial effusion or thickening. Lungs and Pleura: Mild bilateral flores acinar emphysematous changes. No consolidation, collapse, or focal lesions. No pleural effusion or pleural thickening. Mediastinum: No mediastinal mass or abnormal lymphadenopathy. Normal appearance of the trachea and central bronchi. Hilar Structures: Left hilar calcified nodule. Stable Hilar structures are normal without enlargement. Chest Wall: No mass lesions or abnormalities in the chest wall. Vascular Structures: Superior Vena Cava: Patent without evidence of stenosis or thrombus. Bones and Soft Tissues: Small sliding hiatus hernia with distal esophageal wall thickening. Stable Calcified granuloma of the spleen. Stable No fractures, lytic, or blastic lesions of the visualized bony structures. Soft tissues are unremarkable. IMPRESSION: 1. No CT signs of acute pulmonary embolism and examination of the pulmonary trunk and its branches still the third generation 2. Mild bilateral flores acinar emphysematous changes. stable Electronically signed by Percy Bustillos 10-13-2024 5:36 PM Medications Administered Discontinued Medications Ioversol (Optiray 320 125ml) 120 ml IV ONCE ONE Stop: 10/13/24 16:31 Last Admin: 10/13/24 16:30 Dose: 120 ml Documented By: SH Code Status & VTE Plan Code Status FULL CODE Supervising Physician Co-Signing Physician Notes Patient seen and examined at bedside. Patient states for the past few days he has been having cough and shortness of breath. States he has been around people sick with the flu. Imaging reviewed, consistent with moderate to severe emphysematous changes. On exam patient has significant expiratory wheezing consistent with a COPD exacerbation. Overlying Cannot be ruled out given severity of illness. Treatment will include IV Decadron given oxygen require ments, antibiotics for consideration of, sepsis lab workup in setting of leukocytosis tachycardia and tachypnea with known source. We will follow-up blood cultures, down titrate oxygen requirements as able, provide incentive spirometry and flutter valve, and monitor patient. Rest of plan per excellent FERNANDEZ documentation. I have seen and discussed the case with the collaborating advanced practitioner. I agree with the above H&P. I have reviewed and confirmed the patients medical history, the findings on physical examination, and the patients diagnosis and treatment plan with Yoana PRESTON and agree with the information documented. I spent a total of 35 minutes coordinating, documenting, and providing care for this patient excluding time spent in the performance of separately billed services. All of the aforementioned completed outside of collaborating with the assigned advanced practitioner for a full treatment plan. I have reviewed the advanced practitioner's documentation, and I agree with, and take responsibility for the plan of care (1) Sepsis Sepsis acute organ dysfunction status: unspecified Sepsis type: sepsis due to unspecified organism Qualified Code(s): A41.9 - Sepsis, unspecified organism (7) CKD (chronic kidney disease) stage 3, GFR 30-59 ml/min Chronic kidney disease stage 3 subtype: unspecified whether 3a or 3b Qualified Code(s): N18.30 - Chronic kidney disease, stage 3 unspecified
[2024-10-13] MEDS: ALBUT/IPRATROP 3MG/0.5MG NEB 3 ML VIAL NEB SCH (19:00)
[2024-10-13] MEDS: hydrALAZINE HCL 20 MG/ML VIAL IV ONE (19:00)
[2024-10-13] MEDS: cefTRIAXone SODIUM 2,000 MG/50 ML BAG IV STA (19:18)
[2024-10-13] MEDS ORDERED: ACETAMINOPHEN 325 MG TAB PO PRN (20:20)
[2024-10-13] MEDS ORDERED: MAGNESIUM HYDROXIDE SUSP 30 ML UDC PO PRN (20:20)
[2024-10-13] MEDS ORDERED: ONDANSETRON INJ 2 MG/ML 2 ML VIAL IV PRN (20:20)
[2024-10-13] MEDS: LABETALOL HCL IV 5 MG/ML 20ML IV STA (20:35)
[2024-10-13] MEDS: dexAMETHasone 6 MG in SYRINGE 0 ML IV SCH (20:36)
[2024-10-13] MEDS: SODIUM CHLORIDE 0.9% 1,000 ML IV SCH (20:36)
[2024-10-13] MEDS: DOXYCYCLINE HYCLATE 100 MG in DEXTROSE 5% MINI-B 100 ML IV SCH (20:51)
[2024-10-13] MEDS: MIRTAZAPINE TAB 15 MG TAB PO SCH (20:52)
[2024-10-13] MEDS: ATORVASTATIN 20 MG TAB PO SCH (20:52)
[2024-10-13] MEDS: PROPRANOLOL HCL 20 MG TAB PO SCH (20:54)
[2024-10-13] MEDS: haloperidoL 5 MG TAB PO SCH (20:54)
[2024-10-13] MEDS: CHOLECALCIFEROL 25 MCG (1000 UNITS) TAB PO SCH (20:55)
[2024-10-13] MEDS: guaiFENesin 600 MG TABCR PO SCH (20:55)
[2024-10-13] MEDS: HEPARIN SOD 5,000 UNIT/0.5 ML VIAL SQ SCH (20:56)
[2024-10-13] MEDS: OSELTAMIVIR PHOSPHATE SUSP 30 MG/5 ML UDP PO SCH (21:44)
[2024-10-13] MEDS ORDERED: ALBUT/IPRATROP 3MG/0.5MG NEB 3 ML VIAL NEB PRN (22:19)
[2024-10-13] MEDS: guaiFENesin/DEXTROM SYRUP 100MG/10MG 5ML UDC PO PRN (22:38)
[2024-10-13] MEDS: BENZONATATE 100 MG CAPSULE PO SCH (22:38)
[2024-10-13] MEDS: FLUTICASONE PROPIONATE NA SPR 16 GM BTL STA (22:48)
[2024-10-14] MEDS: OLANZapine 10 MG/2.1 ML SDV IM STA (00:17)
[2024-10-14 06:13] LABS: Hematocrit (blood only) 40.7 % (42.0-52.0); Hemoglobin 13.4 g/dl (14.0-18.0); Mean Corpuscular Hemoglobin 28.4 pg (25.0-34.0); Mean Corpuscular Hgb Conc 32.9 g/dL (32.0-36.0); Mean Corpuscular Volume 86.2 fL (80.0-100.0); Mean Platelet Volume 10.4 fL (9.4-12.4); Platelet Count 252 K/uL (130-400); RDW Coefficient of Variation 14.8 % (11.5-14.5); Red Blood Count 4.72 M/uL (4.70-6.10); White Blood Count 13.18 K/ul (4.8-10.8)
[2024-10-14 06:31] LABS: Calcium 8.7 mg/dl (8.6-10.3); Magnesium 1.5 mg/dl (1.7-2.4); Potassium 4.1 mmol/L (3.5-5.1)
[2024-10-14 06:37] LABS: BUN Creatinine Ratio 13.5 (10-20); Creatinine Clr Calc Pharmacy 56.1 ml/min; Phosphorus 2.7 mg/dl (2.5-4.9)
[2024-10-14] MEDS: FLUTICASONE PROPIONATE NA SPR 16 GM BTL SCH (07:28)
[2024-10-14] MEDS: ASPIRIN 81 MG CHEW PO SCH (07:29)
[2024-10-14] MEDS: amLODIPine BESYLATE 5 MG TAB PO SCH (07:29)
[2024-10-14] MEDS: PANTOprazole 40 MG TAB PO SCH (07:29)
[2024-10-14] MEDS: FLUoxetine HCL 20 MG CAP PO SCH (07:30)
[2024-10-14] MEDS: METHYLPHENIDATE HCL 10 MG TABLET PO SCH ×2 (07:48→11:49)
[2024-10-14] MEDS: MAGNESIUM SULFATE / D5W 1 GM/100 ML BAG IV SCH (08:20)
[2024-10-14] MEDS: SODIUM CHLORIDE 0.9% 500 ML IV ONE (08:20)
[2024-10-14] MEDS ORDERED: Nursing to Pharmacy Communication SCH (11:45)
[2024-10-14] MEDS: MoRPHine SULFATE 10 MG/0.5 ML UDP PO PRN (11:49)
--- NOTE | 2024-10-14 12:06 | Hospitalist Progress Note ---
Date of Service October 14, 2024 Assessment & Plan (1) Sepsis: (2) Influenza A: (3) Acute hypoxic respiratory failure: (4) Acute exacerbation of chronic obstructive pulmonary disease: Plan: Trip Parrish is a 74y/o M with PMHx significant for HTN, nonsustained ventricular tachycardia, panlobular emphysema/COPD, prediabetes, CKD stage III, childhood leukemia s/p treatment, chronic paranoid schizophrenia, mood disorder, tobacco use disorder and history of psychosis who presented to the ED via EMS from [facility] for evaluation of flulike symptoms and worsening SOB. Was initially sating at 89% on RA per EMS and on 6L NC upon presentation to the ED. Received 2 albuterol nebulizer treatments en route to the ED. Now has been titrated down to 3L NC - saturating in the low to mid 90s. Meets sepsis criteria on admission given HR>100, RR>20 and source of infection. Initial labs reviewed. Negative lactate. Negative procalcitonin. Positive for influenza A. CXR concerning for left lower lung zone airspace opacity likely developing infiltrate with possible small effusion. Chest CTA negative for PE. Plan: -continue IV Rocephin + po doxycycline. -continue IV Decadron 6mg Q24H. 1L NSS x 1 bag -Pulmonary toileting with ISP and flutter valve. Scheduled Duonebs Q6H. Droplet precautions. Mucinex BID. Attempt to wean O2 requirement as tolerated. Encourage smoking cessation. -continue tamiflu x5 days -tessalon preles, dexamethorphan for cough, morphine if refractory given severe cough Would ultimately benefit from initiation of maintenance inhaler therapy at time of discharge. (5) Hypertensive urgency: Plan: SBP ranging from 160s-190s in the ED. Now s/p 5mg IV hydralazine. Plan: -Continue to closely monitor BP. Continue home amlodipine and propranolol. (6) Chronic paranoid schizophrenia: Plan: -Chronic, stable. Continue home behavioral medications including Prozac, Haldol, Ritalin and Remeron. (7) CKD (chronic kidney disease) stage 3, GFR 30-59 ml/min: Plan: Cr stable on admission. Baseline Cr around 1.2-1.4; avoid nephrotoxic agents as able. Monitor renal function closely and renally dose medications when able. Plan Feeding/fluids: regular Analgesia: tylenol Sedation: na Thromboprophylaxis: heparin Head up position: na Ulcer prophylaxis: na Glycemic control: na Spontaneous breathing trial: down to 1 L Bowel care: miralax prn Indwelling catheter removal: na Deescalation of antibiotics: x5 days I spent a total of 45 minutes in direct patient care, including tket-op-tunt time with the patient and/or family, reviewing medical records, ordering and reviewing diagnostic tests, and coordinating care with other healthcare providers. This time includes: history taking, physical examination, medical decision making, counseling, ECG interpretation, imaging interpretation, lab interpretation, orders, and education, excluding time spent in the performance of separately billed services. Patient stable for transfer to floor. Admission and Anticipated Discharge Date Admission Date: October 13, 2024 Subjective Patient seen and examined at bedside. Patient is doing okay today. Feels her his shortness of breath is much improved. He states he is refusing to take steroids as it against his denominational believes, believes that it is for aborting children. He understands that without steroids his COPD exacerbation might not improve leading to the requirement of oxygen at baseline. He understands and accepts this risk. Review of Systems Review of Systems: CONSTITUTIONAL: Patient denies fevers, chills, sweats and weight changes. EYES: Patient denies any visual symptoms. EARS, NOSE, AND THROAT: No difficulties with hearing. No symptoms of rhinitis or sore throat. CARDIOVASCULAR: Patient denies chest pains, palpitations, orthopnea and paroxysmal nocturnal dyspnea. RESPIRATORY: cough, SOB GI: No nausea, vomiting, diarrhea, constipation, abdominal pain, hematochezia or melena. : No urinary hesitancy or dribbling. No nocturia or urinary frequency. No abnormal urethral discharge. MUSCULOSKELETAL: No myalgias or arthralgias. NEUROLOGIC: No chronic headaches, no seizures. Patient denies numbness, tingling or weakness. PSYCHIATRIC: Patient denies problems with mood disturbance. No problems with anxiety. ENDOCRINE: No excessive urination or excessive thirst. DERMATOLOGIC: Patient denies any rashes or skin changes. Physical Exam Physical Exam: Gen: A&O 3 NAD HEENT: NCAT, EOMI, not icteric. External ears normal. No rhinorrhea. dry mucous membranes. Neck: Supple, full range of motion, no observable masses, No meningeal sign. Lungs: No Respiratory distress. CV: RRR, no edema. Abdomen: Soft, nondistended, No rebound tenderness. MSK: No joint swelling, no redness. Skin: No rashes, petechiae, lesions. Normal color per patient. Neuro: Normal Gait, Grossly intact. Psych: Appropriate for situation. Results & Data Results & Data Vital Signs (Past 12 Hours) Vital Signs Temp Pulse Pulse Resp BP Pulse Ox O2 Del Method 10/14/24 10:33 80 18 126/82 94 Nasal Cannula 10/14/24 08:00 116 H 10/14/24 08:00 Nasal Cannula 10/14/24 06:52 37.0 C 122 H 20 160/95 H 92 Nasal Cannula 10/14/24 05:55 126 H 21 96 Room Air O2 Flow Rate 10/14/24 10:33 1 10/14/24 08:00 10/14/24 08:00 2 10/14/24 06:52 10/14/24 05:55 Laboratory Results -personally reviewed, slightly elevated leukocytosis in setting of steroids and CAP, low Mg at 1.5 Medications Administered Albuterol (Albut/Ipratrop 3mg/0.5mg Neb 3 Ml Vial) 3 ml NEB Q6R NARAYAN; Protocol Stop: 11/12/24 18:59 Last Admin: 10/14/24 05:55 Dose: 3 ml Documented By: Admin: 10/14/24 03:28 Dose: Not Given Documented By: Admin: 10/13/24 19:00 Dose: 3 ml Documented By: NABIL Amlodipine Besylate (Amlodipine Besylate 5 Mg Tab) 5 mg PO QAM NARAYAN Stop: 11/13/24 08:59 Last Admin: 10/14/24 07:29 Dose: 5 mg Documented By: CORTES Aspirin (Aspirin 81 Mg Chew) 81 mg PO DAILY NARAYAN Stop: 11/13/24 08:59 Last Admin: 10/14/24 07:29 Dose: 81 mg Documented By: CORTES Atorvastatin Calcium (Atorvastatin 20 Mg Tab) 20 mg PO HS [facility] Stop: 11/12/24 20:59 Last Admin: 10/13/24 20:52 Dose: 20 mg Documented By: LIZ Benzonatate (Benzonatate 100 Mg Capsule) 100 mg PO TID NARAYAN Stop: 11/12/24 22:19 Last Admin: 10/14/24 07:27 Dose: 100 mg Documented By: Admin: 10/13/24 22:38 Dose: 100 mg Documented By: ILZ Fluoxetine HCl (Fluoxetine Hcl 20 Mg Cap) 40 mg PO DAILY NARAYAN Stop: 11/13/24 08:59 Last Admin: 10/14/24 07:30 Dose: 40 mg Documented By: CORTES Fluticasone Propionate (Fluticasone Propionate Na Spr 16 Gm Btl) 2 sprays NA DAILY NARAYAN Stop: 11/13/24 08:59 Last Admin: 10/14/24 07:28 Dose: 2 sprays Documented By: CORTES Guaifenesin (Guaifenesin 600 Mg Tabcr) 1,200 mg PO Q12 NARAYAN Stop: 11/12/24 20:59 Last Admin: 10/14/24 07:30 Dose: 1,200 mg Documented By: Admin: 10/13/24 20:55 Dose: 1,200 mg Documented By: LIZ Guaifenesin/Dextromethorphan (Guaifenesin/Dextrom Syrup 100mg/10mg 5ml Udc) 5 ml PO Q6H PRN PRN Reason: Cough Stop: 11/12/24 22:17 Last Admin: 10/14/24 07:27 Dose: 5 ml Documented By: Admin: 10/13/24 22:38 Dose: 5 ml Documented By: LIZ Haloperidol (Haloperidol 5 Mg Tab) 5 mg PO BID NARAYAN Stop: 11/12/24 20:59 Last Admin: 10/14/24 07:29 Dose: 5 mg Documented By: Admin: 10/13/24 20:54 Dose: 5 mg Documented By: LIZ Heparin Sodium (Porcine) (Heparin Sod 5,000 Unit/0.5 Ml Vial) 5,000 units SQ Q12 NARAYAN Stop: 11/12/24 20:59 Last Admin: 10/14/24 07:28 Dose: Not Given Documented By: Admin: 10/13/24 20:56 Dose: Not Given Documented By: LIZ Dexamethasone 6 mg/ Syringe 1.5 mls @ 1 mls/min IV Q24H NARAYAN Stop: 10/18/24 20:29 Last Admin: 10/14/24 07:28 Dose: Not Given Documented By: Admin: 10/13/24 20:36 Dose: Not Given Documented By: LIZ Doxycycline Hyclate 100 mg/ (Dextrose) 100 mls @ 50 mls/hr IV Q12H NARAYAN Stop: 10/18/24 20:29 Last Infusion: 10/14/24 08:51 Dose: Infused Documented By: Admin: 10/14/24 07:30 Dose: 100 mls/hr Documented By: Infusion: 10/13/24 22:55 Dose: Infused Documented By: Admin: 10/13/24 20:51 Dose: 50 mls/hr Documented By: LIZ Magnesium Sulfate/Dextrose (Magnesium Sulfate / D5w) 1 gm in 100 mls @ 50 mls/hr IV Q2H [facility] Stop: 10/14/24 13:44 Last Admin: 10/14/24 11:28 Dose: 50 mls/hr Documented By: Infusion: 10/14/24 11:27 Dose: Infused Documented By: Admin: 10/14/24 09:27 Dose: 50 mls/hr Documented By: Infusion: 10/14/24 09:27 Dose: Infused Documented By: Admin: 10/14/24 08:20 Dose: 50 mls/hr Documented By: CORTES Methylphenidate HCl (Methylphenidate Hcl 10 Mg Tablet) 10 mg PO BID@0800,1200 [facility] Stop: 10/28/24 07:59 Last Admin: 10/14/24 11:49 Dose: 10 mg Documented By: CORTES Mirtazapine (Mirtazapine Tab 15 Mg Tab) 30 mg PO HS [facility] Stop: 11/12/24 20:59 Last Admin: 10/13/24 20:52 Dose: 30 mg Documented By: LIZ Morphine Sulfate (Morphine Sulfate 10 Mg/0.5 Ml Udp) 5 mg PO Q6 PRN PRN Reason: refractory cough Stop: 10/28/24 10:54 Last Admin: 10/14/24 11:49 Dose: 5 mg Documented By: CORTES Oseltamivir Phosphate (Oseltamivir Phosphate Susp 30 Mg/5 Ml Udp) 30 mg PO BID [facility]; Protocol Stop: 10/18/24 21:59 Last Admin: 10/14/24 07:27 Dose: 30 mg Documented By: Admin: 10/13/24 21:44 Dose: 30 mg Documented By: LIZ Pantoprazole Sodium (Pantoprazole 40 Mg Tab) 40 mg PO DAILY [facility] Stop: 11/13/24 08:59 Last Admin: 10/14/24 07:29 Dose: 40 mg Documented By: CORTES Propranolol HCl (Propranolol Hcl 20 Mg Tab) 20 mg PO BID NARAYAN Stop: 11/12/24 20:59 Last Admin: 10/14/24 07:29 Dose: 20 mg Documented By: Admin: 10/13/24 20:54 Dose: 20 mg Documented By: LIZ Vitamin D (Cholecalciferol 25 Mcg (1000 Units) Tab) 25 mcg PO QPM NARAYAN Stop: 11/12/24 20:59 Last Admin: 10/13/24 20:55 Dose: 25 mcg Documented By: LIZ (1) Sepsis Sepsis type: sepsis due to unspecified organism Sepsis acute organ dysfunction status: unspecified Qualified Code(s): A41.9 - Sepsis, unspecified organism (7) CKD (chronic kidney disease) stage 3, GFR 30-59 ml/min Chronic kidney disease stage 3 subtype: unspecified whether 3a or 3b Qualified Code(s): N18.30 - Chronic kidney disease, stage 3 unspecified
--- NOTE | 2024-10-14 12:56 | Electrocardiogram Report ---
Test Reason : Blood Pressure : */* mmHG Vent. Rate : 101 BPM Atrial Rate : 101 BPM P-R Int : 134 ms QRS Dur : 80 ms QT Int : 332 ms P-R-T Axes : 42 8 74 degrees QTcB Int : 430 ms Sinus tachycardia Low voltage QRS Borderline ECG When compared with ECG of 10-Dec-2023 16:33, Premature atrial complexes are no longer Present Nonspecific T wave abnormality no longer evident in Inferior leads Confirmed by Alfie Vargas ([id number]) on 10/14/2024 12:56:45 PM Referred By: [facility] Confirmed By: Alfie Vargas
--- NOTE | 2024-10-14 13:13 | Electrocardiogram Report ---
Test Reason : Blood Pressure : */* mmHG Vent. Rate : 114 BPM Atrial Rate : 114 BPM P-R Int : 140 ms QRS Dur : 84 ms QT Int : 322 ms P-R-T Axes : 62 27 51 degrees QTcB Int : 443 ms Sinus tachycardia Low voltage QRS Nonspecific ST abnormality Abnormal ECG When compared with ECG of 13-Oct-2024 15:13, (unconfirmed) No significant change was found Confirmed by Alfie Vargas ([id number]) on 10/14/2024 1:12:44 PM Referred By: [employer] [facility] Confirmed By: Alfie Vargas
[2024-10-15 07:51] VITALS: BP 123/83; TEMP 98.2
[2024-10-15] MEDS: POLYETHYLENE (MIRALAX) 17 GM PACK PO PRN (08:32)
[2024-10-15 09:37] VITALS: RESP 20
--- NOTE | 2024-10-15 12:17 | Discharge Summary ---
Discharge Summary Date of Service October 15, 2024 Principal Dx & Hospital Course #1 = Principal Diagnosis (1) Sepsis: (2) Influenza A: (3) Acute hypoxic respiratory failure: (4) Acute exacerbation of chronic obstructive pulmonary disease: Trip Parrish is a 74y/o M with PMHx significant for HTN, nonsustained ventricular tachycardia, panlobular emphysema/COPD, prediabetes, CKD stage III, childhood leukemia s/p treatment, chronic paranoid schizophrenia, mood disorder, tobacco use disorder and history of psychosis who presented to the ED via EMS from [facility] for evaluation of flulike symptoms and worsening SOB. Was initially sating at 89% on RA per EMS and on 6L NC upon presentation to the ED. Received 2 albuterol nebulizer treatments en route to the ED. Now has been titrated down to 3L NC - saturating in the low to mid 90s. Meets sepsis criteria on admission given HR>100, RR>20 and source of infection. Initial labs reviewed. Negative lactate. Negative procalcitonin. Positive for influenza A. CXR concerning for left lower lung zone airspace opacity likely developing infiltrate with possible small effusion. Chest CTA negative for PE. Plan: -switch to PO abx on discharge -patient continuing to refuse steroids, despite being standard of care for COPD exacerbation. Has capacity to refuse, will discharge with oxygen and optimize inhaler regiment -2 step for oxygen -continue tamiflu x5 days -tessalon preles, dexamethorphan for cough (5) Hypertensive urgency: SBP ranging from 160s-190s in the ED. Now s/p 5mg IV hydralazine. Plan: -Continue to closely monitor BP. Continue home amlodipine and propranolol. (6) Chronic paranoid schizophrenia: -Chronic, stable. Continue home behavioral medications including Prozac, Haldol, Ritalin and Remeron. (7) CKD (chronic kidney disease) stage 3, GFR 30-59 ml/min: -Cr stable on admission. Baseline Cr around 1.2-1.4; avoid nephrotoxic agents as able Notes For Next Care Provider Trip Parrish is a 74y/o M with PMHx significant for HTN, nonsustained ventricular tachycardia, panlobular emphysema/COPD, prediabetes, CKD stage III, childhood leukemia s/p treatment, chronic paranoid schizophrenia, mood disorder, tobacco use disorder and history of psychosis who presented to the ED via EMS from [facility] for evaluation of flulike symptoms and worsening SOB. In the ED, noted to need oxygen, admitted to medicine for further workup. On admission, prescribed steroids/inhalers/cough medicine however patient vehmently refused steroids. Understood risks and benefits of this, including perhaps not getting better and needing oxygen. He is agreeable to this, he just wants to return home. Sent home with new controller, steroids (in case he chooses to take them), cough medicine, regular inhalers. Medication Changes From Visit -breo-ellipta, doxy/augmentin, tessalon perles Admission HPI Per Admitting Provider Trip Parrish is a 74y/o M with PMHx significant for HTN, nonsustained ventricular tachycardia, panlobular emphysema/COPD, prediabetes, CKD stage III, childhood leukemia s/p treatment, chronic paranoid schizophrenia, mood disorder, tobacco use disorder and history of psychosis who presented to the ED via EMS from [facility] for evaluation of flulike symptoms and worsening SOB. History obtained from the patient, discussion with ED provider and associated chart review. Patient seen at bedside with Dr. Campos. Patient with increasing shortness of breath over the last week, but notes his breathing has significantly declined more so over the last 48 hours. Endorses feeling congested for a number of weeks but again this has also worsened over the last 48 hours. Denies any chest pain. Mentions feeling extremely short of breath with minimal exertion. Minimal nonproductive cough. No recorded fevers. Normally does not wear any supplemental oxygen at baseline. He was hypoxic at 89% SpO2 on RA per EMS on his first set of vitals. He was initially on 6L NC upon presentation to ED. Received 2 albuterol nebulizer treatments en route to ED. Now has been titrated down to 3L NC and saturating well at the time of our evaluation. He notes some mild improvement in his breathing. Currently smokes 2ppd. Meets sepsis criteria on admission given HR>100, RR>20 and source of infection. Positive for influenza A on respiratory [employer] panel. CXR concerning for left lower lung zone airspace opacity likely developing infiltrate with possible small effusion. Chest CTA negative for PE. Also with significantly elevated SBP ranging in the 150s to 190s in the ED. Discharge Exam Gen: A&O 3 NAD HEENT: NCAT, EOMI, not icteric. External ears normal. No rhinorrhea. dry mucous membranes. Neck: Supple, full range of motion, no observable masses, No meningeal sign. Lungs: some expieratory wheezing, improved from prior CV: RRR, no edema. Abdomen: Soft, nondistended, No rebound tenderness. MSK: No joint swelling, no redness. Skin: No rashes, petechiae, lesions. Normal color per patient. Neuro: Normal Gait, Grossly intact. Psych: Appropriate for situation. Updated Medication List Medication Instructions Recorded Confirmed Type acetaminophen 500 mg tablet 1,000 mg PO Q8 PRN Fever Or Pain 10/23/22 10/13/24 History (Tylenol Extra Strength) haloperidol 5 mg tablet 5 mg PO BID 10/23/22 10/13/24 History propranolol 20 mg tablet 20 mg PO BID 10/23/22 10/13/24 History aspirin 81 mg chewable tablet 81 mg PO DAILY 12/10/23 10/13/24 History (Children's Aspirin) atorvastatin 20 mg tablet 20 mg PO HS 12/10/23 10/13/24 History fluoxetine 40 mg capsule 40 mg PO DAILY 12/10/23 10/13/24 History methylphenidate HCl 10 mg tablet 10 mg PO BID 12/10/23 10/13/24 History pantoprazole 40 mg tablet,delayed 40 mg PO DAILY 12/10/23 10/13/24 History release amlodipine 5 mg tablet (Norvasc) 5 mg PO QAM #30 tabs 12/14/23 10/13/24 Rx ipratropium 0.5 mg-albuterol 3 mg 3 ml NEB Q4H PRN shortness of 12/14/23 10/13/24 Rx (2.5 mg base)/3 mL nebulization breath or wheezing #90 mL soln cholecalciferol (vitamin D3) 25 25 mcg PO QPM 10/13/24 10/13/24 History mcg (1,000 unit) capsule (Vitamin D3) mirtazapine 30 mg tablet 30 mg PO HS 10/13/24 10/13/24 History amoxicillin 500 mg-potassium 1 tab PO BID 5 days #10 tabs 10/15/24 Rx clavulanate 125 mg tablet (Augmentin) benzonatate 100 mg capsule 100 mg PO TID #30 caps 10/15/24 Rx dextromethorphan-guaifenesin 10 5 ml PO Q6H PRN cough #1,000 mL 10/15/24 Rx mg-100 mg/5 mL oral syrup doxycycline hyclate 100 mg capsule 100 mg PO BID 5 days #10 caps 10/15/24 Rx fluticasone furoate 50 1 inh inhalation DAILY #60 ea 10/15/24 Rx mcg-vilanterol 25 mcg/dose inhalation powder (Breo Ellipta) fluticasone propionate 50 2 spray NA DAILY #16 grams 10/15/24 Rx mcg/actuation nasal spray,suspension oseltamivir 6 mg/mL oral 30 mg (5 mL) PO BID 3 days #30 mL 10/15/24 Rx suspension (Tamiflu) prednisone 20 mg tablet 40 mg (2 x 20 mg) PO DAILY 5 days 10/15/24 Rx #10 tabs Hospital Stay Data Consultations 10/13/24 17:52 ED Decision to Admit Stat Diagnostic Imagining Performed 10/13/24 16:22 CT for pulmonary embolism PE [CT angio chest PE protocol] Stat Pending Results Patient Have Any Pending Studies at Discharge: No Discharge Instructions Given to Patient (Per Discharging Provider) 1. Please consider taking steroids for you COPD exacerbation. 2. Please utilize inhalers and oxygen as prescribed. 3. Please follow up with PCP and pulmonology. 4. Please stop smoking cigarretes. Total Time Total Time Spent Total Time Spent (In Minutes): I spent a total of 35 minutes in direct patient care, including [id number] time with the patient and/or family, reviewing medical records, ordering and reviewing diagnostic tests, and coordinating care with other healthcare providers. This time includes: history taking, physical examination, medical decision making, counseling, ECG interpretation, imaging interpretation, lab interpretation, orders, and education, excluding time spent in the performance of separately billed services.
[2024-10-15 12:50] VITALS: PULSE 71; O2SAT 92
== END 2024-10-15 14:20 | DRG 871 ==
LOC: ED 15:03 → 2E 18:41 → 3W 10-14 17:17

== ENCOUNTER 2025-05-19 10:38 | Inpatient (IN) ==
--- NOTE | 2025-05-19 10:53 | Emergency Department Note ---
Impression & Plan Respiratory failure, acute and chronic, COPD exacerbation, Viral respiratory infection ED Provider Note NAME: ZAK EDMONDSON AGE: 74 SEX: M : 1950 ARRIVES VIA: Ambulance INFORMANT: Patient, EMS ED PROVIDER(S): Frank Landers DO CHIEF COMPLAINT: SOB HPI: This is a 74-year-old male with the PMHx of COPD, CKD, paranoid schizophrenia, HTN and tobacco use disorder presenting to [facility] for further evaluation of SOB. Patient is accompanied by EMS who provide additional history. EMS reported that [facility] for hypoxia of 93%, which would be normal for the patient. No therapies given by EMS. Patient states he got sick with a cold like illness a few days ago. Now he reports worsening dyspnea at rest with wheezing, nonproductive cough and congestion. They deny fever or chills. Denies chest pain or palpitations. They deny abdominal pain, nausea and vomiting. No urinary complaints. No recent changes in bowel movements. Patient denies recent changes in medications or OTC supplements. Patient offers no other complaints, today. ADDITIONAL HISTORY OBTAINED: Per HPI Chronic Medical/Social Conditions Affecting Care: Per HPI PAST MEDICAL HISTORY: See Below PAST SURGICAL HISTORY: See Below FAMILY HISTORY: See Below SOCIAL HISTORY: See Below HOME MEDICATIONS: See Below ALLERGIES: See Below VITALS: See Below PHYSICAL EXAMINATION: GENERAL: Sitting up in bed, alert, ill appearing, well nourished, no distress, non-toxic EYE EXAM: normal conjunctiva. PERRL and EOM's grossly intact. OROPHARYNX: no exudate, no erythema, lips, buccal mucosa, and tongue normal and mucous membranes are moist NECK: supple, no nuchal rigidity, no adenopathy, non-tender LUNGS:Mild tachypnea with diffuse expiratory wheezing. Normal chest wall mechanics HEART: no murmurs, regular rate, regular rhythm ABDOMEN: abdomen soft, non-tender, no masses, no rebound or guarding. BACK: Back is symmetrical on inspection and there is no deformity, no midline tenderness, no CVA tenderness. SKIN: no rashes and no bruising UPPER EXTREMITIES: upper extremities are grossly normal. LOWER EXTREMITIES: No pitting edema. NEURO EXAM: Normal sensorium, GCS 15, normal speech, no gross weakness of arms, no gross weakness of legs. MEDICAL DECISION MAKING: Differential diagnoses includes but not limited to ACS, unstable angina, dysrhythmia, PNA, hypervolemia/pulmonary edema, CHF exacerbation, COPD exacerbation, PE, pneumothorax, pericardial effusion, cardiac tamponade, anxiety/psychogenic, viral URI In summary, this is a 74 year old male who presented with SOB. Differential as above. Nursing notes and pertinent past medical records reviewed. Vital signs reviewed and the patient is intermittently hypoxic with tachypnea. History and presentation revealed ongoing illness over the last few days now presenting as a COPD exacerbation. Physical examination revealed as above. As a result of my initial evaluation, Patient presents today for COPD exacerbation. It is reported that he was hypoxic at home by home health. Oxygen saturation that was reported was 93%. This is appropriate for a COPD exacerbation. Would target oxygen goals of 88 to 92% with this patient. Patient has received 2 DuoNebs with significant audible wheezing still present on my physical examination. Plan for hour-long albuterol nebulizer. Will also give IV magnesium. Plan for labs and chest x-ray. No change in sputum production. Will give steroids but will hold off on antibiotics at this time. Diagnostics interpreted by me include EKG and cardiac monitoring as listed below: -Cardiac Monitoring: An order was placed for continuous cardiac monitoring. The monitor shows a rate of 70-90s with regular rhythm. -ECG: Normal sinus rhythm at a ventricular rate of [address] segment changes to suggest STEMI. Intervals are within normal limits. Patient completed laboratory studies and imaging. Results independently interpreted by me are leukocytosis present. No anemia. Has normal pH but chronic hypercapnia. He has no electrolyte dernagements. Slight troponin leak likely secondary to his respiratory status. RVP positive for rhino/entero- virus. Despite prehospital duonebs, he continues to have severe wheezing and tachypnea with intermittent hypoxia. He was placed on LFNC and we continued with bolus of magnesium and hour long albuterol neb. Continued to appear ill with tachypnea and wheezing leading to further duonebs. Concern for severe COPD exacerbation with acute on chronic hypoxemic hypercapnic respiratory failure. No focal consolidation on CXR per my interpretation. He was started on atypical coverage with doxycyline. Plan for hospital admission. Ultimately, the decision was made to admit the patient for acute on chronic hypoxemic hypercapnic respiratory failure 2/2 severe COPD exacerbation. I discussed the case with the hospitalist service via telephone/TigerText and they are agreeable to admit the patient to their services. Based on the above, including the patient's age, coexisting illnesses, labs, imaging, and exam findings the decision to treat as an inpatient. I discussed the patient with the hospitalist team who recommended admission to their services. They received the medications, treatments, interventions indicated above and their condition remained guarded. I discussed my findings with the patient and their family and they understand and agree with the treatment plan. All patient / family questions were answered to their satisfaction. Consults/Care Managements Discussions: Per [facility] ER treatment provided: See above Procedures:none Critical Care: I have personally spent 33 minutes of critical care time in direct management of this patient. This includes bedside care, interpretation of diagnostic studies, and testing, discussion with consultants, patient, and family members, and other require inpatient management activities. This 33 minutes is in excess of all separately billable procedures. The chart was completed utilizing [employer] Speech voice recognition software. Grammatical errors, random word insertions, pronoun errors, and incomplete sentences are an occasional consequence of this system due to software limitations, ambient noise, and hardware issues. Any formal questions or concerns about the content, text, or information contained within the body of this dictation should be directly addressed to the physician for clarification. 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 NSVT (nonsustained ventricular tachycardia) IN SETTING OF INFLUENZA AUG 2017 - 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 Schizophrenia Hypertension Chronic obstructive pulmonary disease Surgical History Hx of right cataract extraction History of tooth extraction Family History Other Family history non-contributory Social History Smoking Status: Current every day smoker Tobacco Type: Cigarettes Cigarettes Per Day: 2-3 ppd; Second Hand Exposure: No; Do You Dip or Chew Tobacco: No; Hx Alcohol Use: No Hx Substance Use: No Preferred Language: Croatian Communication Ability: Effective Collection Teller Required: No Beliefs That Will Affect Care: None Current Living Situation: Personal Care Facility Current Living Situation Comment: [facility] Feels Safe at Home: Yes Safety Concerns: Feels Safe At This Time Assistive Devices: None Allergies Allergies Allergy/AdvReac Type Severity Reaction Status Date / Time lithium Allergy Unknown Verified 12/10/23 19:47 Home Meds Home Medications Medication Instructions Recorded Confirmed acetaminophen 500 mg tablet 1,000 mg PO Q8 PRN Fever Or Pain 10/23/22 05/19/25 (Tylenol Extra Strength) haloperidol 5 mg tablet 5 mg PO QAM 10/23/22 05/19/25 propranolol 20 mg tablet 20 mg PO AMHS 10/23/22 05/19/25 aspirin 81 mg chewable tablet 81 mg PO QAM 12/10/23 05/19/25 (Children's Aspirin) atorvastatin 20 mg tablet 20 mg PO HS 12/10/23 05/19/25 fluoxetine 40 mg capsule 40 mg PO QPM 12/10/23 05/19/25 methylphenidate HCl 10 mg tablet 10 mg PO BID 12/10/23 05/19/25 pantoprazole 40 mg tablet,delayed 40 mg PO DAILYBB 12/10/23 05/19/25 release cholecalciferol (vitamin D3) 25 25 mcg PO HS 10/13/24 05/19/25 mcg (1,000 unit) capsule (Vitamin D3) mirtazapine 30 mg tablet 30 mg PO HS 10/13/24 05/19/25 albuterol sulfate 90 mcg/actuation 2 puff inhalation Q6H PRN 05/19/25 05/19/25 aerosol inhaler Shortness Of Breath Or Wheezing haloperidol 10 mg tablet 10 mg PO QPM 05/19/25 05/19/25 haloperidol decanoate 100 mg/mL 100 mg IM Q28D 05/19/25 05/19/25 intramuscular solution umeclidinium 62.5 mcg-vilanterol 1 inh inhalation QAM 05/19/25 05/19/25 25 mcg/actuation powdr for inhalation (Anoro Ellipta) Previous Rx's Medication Instructions Recorded amlodipine 5 mg tablet (Norvasc) 5 mg PO QAM #30 tabs 12/14/23 ipratropium 0.5 mg-albuterol 3 mg 3 ml NEB Q4H PRN shortness of 12/14/23 (2.5 mg base)/3 mL nebulization breath or wheezing #90 mL soln Results & Data (ED) Vital Signs Vital Signs - 24 hr 05/19/25 10:28 Temperature 36.6 C Temperature Source Oral Pulse Rate 86 Respiratory Rate 17 Blood Pressure 160/97 H Blood Pressure Mean 118 Pulse Oximetry 90 Oxygen Delivery Method Room Air Sepsis Recent Fever Within 48 Hours No Sepsis New/Unexplained Change in Mental Status N/A Sepsis Action Taken by Nursing No Action Required Laboratory Data 05/22/25 05:35 05/22/25 05:35 Lab Results 05/19/25 05/19/25 05/19/25 Range/Units 10:45 11:00 11:17 WBC 15.30 H (4.8-10.8) K/ul RBC 5.52 (4.70-6.10) M/uL Hgb 15.5 (14.0-18.0) g/dl Hct 47.8 (42.0-52.0) % MCV 86.6 (80.0-100.0) fL MCH 28.1 (25.0-34.0) pg MCHC 32.4 (32.0-36.0) g/dL RDW Std Deviation 49.5 H (36.4-46.3) fL RDW Coeff of Demond 16.2 H (11.5-14.5) % Plt Count 252 (130-400) K/uL MPV 10.1 (9.4-12.4) fL Immature Gran % (Auto) 1.0 % Neut % (Auto) 83.9 % Lymph % (Auto) 4.1 % [place] % (Auto) 9.2 % Eos % (Auto) 1.4 % Baso % (Auto) 0.4 % Neut # (Auto) 12.85 H (1.40-6.50) K/uL Lymph # (Auto) 0.63 L (1.20-3.40) K/uL [place] # (Auto) 1.40 H (0.11-0.59) K/uL Eos # (Auto) 0.21 (0.00-0.50) K/uL Baso # (Auto) 0.06 (0.00-0.20) K/uL Immature Gran # (Auto) 0.15 (0.01-0.20) K/uL VBG pH 7.37 (7.36-7.41) VBG pCO2 58 H (38-50) mmHg VBG pO2 27 mmHg VBG HCO3 34 mmol/L VBG O2 Saturation < 60.0 % VBG Base Excess 6.1 mEq/L Sodium 137 (136-145) mmol/L Potassium 4.6 (3.5-5.1) mmol/L Chloride 100 (98-107) mmol/L Carbon Dioxide 30 (21-32) mmol/L Anion Gap 7 (3-11) BUN 16 (6-23) mg/dl Creatinine 1.35 (0.6-1.4) mg/dl Est Cr Clr Drug Dosing 52.0 ml/min eGFR 55.44 BUN/Creatinine Ratio 11.9 (10-20) Glucose 135 H (70-99(Fasting)) mg/dl Calcium 9.5 (8.6-10.3) mg/dl Magnesium 1.8 (1.7-2.4) mg/dl Total Bilirubin 0.7 (0.2-1.0) mg/dl AST 15 (13-39) U/L ALT 14 (7-52) U/L Alkaline Phosphatase 66 (34-104) U/L Troponin I High Sens 24.6 H (0-20) pg/ml Total Protein 6.8 (6.0-8.3) gm/dl Albumin 4.1 (3.4-5.0) gm/dl Globulin 2.7 (2.5-4.0) gm/dl Albumin/Globulin Ratio 1.5 (0.9-2) Adenovirus (PCR) Not Detected (NotDetected) B. pertussis DNA (PCR) Not Detected (NotDetected) B.parapertussis DNA PCR Not Detected (NotDetected) C. pneumoniae DNA (PCR) Not Detected (NotDetected) Coronavirus OC43 (PCR) Not Detected (NotDetected) Coronavirus HKU1 (PCR) Not Detected (NotDetected) Coronavirus 229E (PCR) Not Detected (NotDetected) SARS-CoV-2 (PCR) Not Detected (NotDetected) Coronavirus NL63 (PCR) Not Detected (NotDetected) Human Metapneumovir PCR Not Detected (NotDetected) Influenza Type A (PCR) Not Detected (NotDetected) Influenza Type B (PCR) Not Detected (NotDetected) M. pneumoniae (PCR) Not Detected (NotDetected) Parainfluenza 1 (PCR) Not Detected (NotDetected) Parainfluenza 2 (PCR) Not Detected (NotDetected) Parainfluenza 3 (PCR) Not Detected (NotDetected) Parainfluenza 4 (PCR) Not Detected (NotDetected) RSV (PCR) Not Detected (NotDetected) Entero/Rhino (PCR) DETECTED A (NotDetected) 05/19/25 Range/Units 12:52 WBC (4.8-10.8) K/ul RBC (4.70-6.10) M/uL Hgb (14.0-18.0) g/dl Hct (42.0-52.0) % MCV (80.0-100.0) fL MCH (25.0-34.0) pg MCHC (32.0-36.0) g/dL RDW Std Deviation (36.4-46.3) fL RDW Coeff of Demond (11.5-14.5) % Plt Count (130-400) K/uL MPV (9.4-12.4) fL Immature Gran % (Auto) % Neut % (Auto) % Lymph % (Auto) % [place] % (Auto) % Eos % (Auto) % Baso % (Auto) % Neut # (Auto) (1.40-6.50) K/uL Lymph # (Auto) (1.20-3.40) K/uL [place] # (Auto) (0.11-0.59) K/uL Eos # (Auto) (0.00-0.50) K/uL Baso # (Auto) (0.00-0.20) K/uL Immature Gran # (Auto) (0.01-0.20) K/uL VBG pH (7.36-7.41) VBG pCO2 (38-50) mmHg VBG pO2 mmHg VBG HCO3 mmol/L VBG O2 Saturation % VBG Base Excess mEq/L Sodium (136-145) mmol/L Potassium (3.5-5.1) mmol/L Chloride (98-107) mmol/L Carbon Dioxide (21-32) mmol/L Anion Gap (3-11) BUN (6-23) mg/dl Creatinine (0.6-1.4) mg/dl Est Cr Clr Drug Dosing ml/min eGFR BUN/Creatinine Ratio (10-20) Glucose (70-99(Fasting)) mg/dl Calcium (8.6-10.3) mg/dl Magnesium (1.7-2.4) mg/dl Total Bilirubin (0.2-1.0) mg/dl AST (13-39) U/L ALT (7-52) U/L Alkaline Phosphatase (34-104) U/L Troponin I High Sens 20.4 H (0-20) pg/ml Total Protein (6.0-8.3) gm/dl Albumin (3.4-5.0) gm/dl Globulin (2.5-4.0) gm/dl Albumin/Globulin Ratio (0.9-2) Adenovirus (PCR) (NotDetected) B. pertussis DNA (PCR) (NotDetected) B.parapertussis DNA PCR (NotDetected) C. pneumoniae DNA (PCR) (NotDetected) Coronavirus OC43 (PCR) (NotDetected) Coronavirus HKU1 (PCR) (NotDetected) Coronavirus 229E (PCR) (NotDetected) SARS-CoV-2 (PCR) (NotDetected) Coronavirus NL63 (PCR) (NotDetected) Human Metapneumovir PCR (NotDetected) Influenza Type A (PCR) (NotDetected) Influenza Type B (PCR) (NotDetected) M. pneumoniae (PCR) (NotDetected) Parainfluenza 1 (PCR) (NotDetected) Parainfluenza 2 (PCR) (NotDetected) Parainfluenza 3 (PCR) (NotDetected) Parainfluenza 4 (PCR) (NotDetected) RSV (PCR) (NotDetected) Entero/Rhino (PCR) (NotDetected) Administered Medications Albuterol (Albut/Ipratrop 3mg/0.5mg Neb 3 Ml Vial) 3 ml NEB QIDR [facility]; Protocol Stop: 06/18/25 14:59 Last Admin: 05/22/25 15:14 Dose: 3 ml Documented By: Admin: 05/22/25 11:13 Dose: 3 ml Documented By: Admin: 05/22/25 07:46 Dose: 3 ml Documented By: Admin: 05/21/25 20:15 Dose: 3 ml Documented By: Admin: 05/21/25 14:03 Dose: 3 ml Documented By: Admin: 05/21/25 11:03 Dose: 3 ml Documented By: Admin: 05/21/25 07:32 Dose: 3 ml Documented By: Admin: 05/20/25 19:59 Dose: 3 ml Documented By: Admin: 05/20/25 15:19 Dose: 3 ml Documented By: Admin: 05/20/25 10:47 Dose: 3 ml Documented By: Admin: 05/20/25 07:10 Dose: 3 ml Documented By: Admin: 05/19/25 20:03 Dose: 3 ml Documented By: cricket Admin: 05/19/25 15:41 Dose: 3 ml Documented By: JEN Amlodipine Besylate (Amlodipine Besylate 5 Mg Tab) 5 mg PO [facility] Stop: 06/19/25 08:59 Last Admin: 05/22/25 08:16 Dose: 5 mg Documented By: Admin: 05/21/25 08:21 Dose: 5 mg Documented By: Admin: 05/20/25 08:14 Dose: 5 mg Documented By: ALAN Aspirin (Aspirin 81 Mg Chew) 81 mg PO [facility] Stop: 06/19/25 08:59 Last Admin: 05/22/25 08:15 Dose: 81 mg Documented By: ORonaldo Admin: 05/21/25 08:25 Dose: 81 mg Documented By: Admin: 05/20/25 08:11 Dose: 81 mg Documented By: ALAN Atorvastatin Calcium (Atorvastatin 20 Mg Tab) 20 mg PO [facility] Stop: 06/18/25 20:59 Last Admin: 05/21/25 21:32 Dose: 20 mg Documented By: Admin: 05/20/25 20:45 Dose: 20 mg Documented By: Admin: 05/19/25 20:48 Dose: 20 mg Documented By: WAX BLENDER Doxycycline Hyclate (Doxycycline Hyclate 100 Mg Cap) 100 mg PO BID NARAYAN Stop: 05/24/25 20:59 Last Admin: 05/22/25 08:16 Dose: 100 mg Documented By: Admin: 05/21/25 21:32 Dose: 100 mg Documented By: Admin: 05/21/25 08:21 Dose: 100 mg Documented By: Admin: 05/20/25 20:45 Dose: 100 mg Documented By: Admin: 05/20/25 08:14 Dose: 100 mg Documented By: Admin: 05/19/25 20:47 Dose: 100 mg Documented By: JEY Fluoxetine HCl (Fluoxetine Hcl 20 Mg Cap) 40 mg PO QPM [facility]AN Stop: 06/18/25 20:59 Last Admin: 05/21/25 21:32 Dose: 40 mg Documented By: Admin: 05/20/25 20:44 Dose: 40 mg Documented By: Admin: 05/19/25 20:48 Dose: 40 mg Documented By: JEY Guaifenesin (Guaifenesin 600 Mg Tabcr) 600 mg PO Q12 [facility] Stop: 06/18/25 20:59 Last Admin: 05/22/25 08:16 Dose: 600 mg Documented By: Admin: 05/21/25 21:32 Dose: 600 mg Documented By: Admin: 05/21/25 08:21 Dose: 600 mg Documented By: Admin: 05/20/25 20:44 Dose: 600 mg Documented By: Admin: 05/20/25 08:14 Dose: 600 mg Documented By: Admin: 05/19/25 20:48 Dose: 600 mg Documented By: WAX BLENDER Haloperidol (Haloperidol 5 Mg Tab) 10 mg PO QPM NARAYAN Stop: 06/18/25 20:59 Last Admin: 05/21/25 21:32 Dose: 10 mg Documented By: Admin: 05/20/25 20:44 Dose: 10 mg Documented By: Admin: 05/19/25 20:47 Dose: 10 mg Documented By: JEY Haloperidol (Haloperidol 5 Mg Tab) 5 mg PO QAM NARAYAN Stop: 06/19/25 08:59 Last Admin: 05/22/25 08:16 Dose: 5 mg Documented By: Admin: 05/21/25 08:21 Dose: 5 mg Documented By: Admin: 05/20/25 08:11 Dose: 5 mg Documented By: ALAN Methylprednisolone 40 mg/ (Syringe) 0.64 mls @ 1.5 mls/min IV Q8 NARAYAN Stop: 06/18/25 21:59 Last Admin: 05/22/25 13:20 Dose: 1.5 mls/min Documented By: Admin: 05/22/25 06:07 Dose: 1.5 mls/min Documented By: Admin: 05/21/25 21:32 Dose: 1.5 mls/min Documented By: Admin: 05/21/25 14:51 Dose: 1.5 mls/min Documented By: Admin: 05/21/25 05:07 Dose: 1.5 mls/min Documented By: Admin: 05/20/25 20:45 Dose: 1.5 mls/min Documented By: Admin: 05/20/25 15:05 Dose: 1.5 mls/min Documented By: Admin: 05/20/25 06:32 Dose: 1.5 mls/min Documented By: Admin: 05/19/25 22:39 Dose: 1.5 mls/min Documented By: JEY Insulin Aspart (Insulin Aspart Per Unit Charge) 0 units SC ACHS NARAYAN Stop: 06/19/25 16:29 Last Admin: 05/22/25 17:47 Dose: Not Given Documented By: Admin: 05/22/25 12:32 Dose: Not Given Documented By: Admin: 05/22/25 09:27 Dose: Not Given Documented By: Admin: 05/21/25 21:43 Dose: Not Given Documented By: Admin: 05/21/25 17:23 Dose: Not Given Documented By: Admin: 05/21/25 12:05 Dose: Not Given Documented By: Admin: 05/21/25 08:15 Dose: Not Given Documented By: Admin: 05/20/25 20:12 Dose: Not Given Documented By: Admin: 05/20/25 18:06 Dose: 5 units Documented By: ALAN Co-signed By: ALYSE Methylphenidate HCl (Methylphenidate Hcl 10 Mg Tablet) 10 mg PO BID@0800,1200 [facility] Stop: 06/02/25 16:44 Last Admin: 05/22/25 12:33 Dose: 10 mg Documented By: Admin: 05/22/25 08:14 Dose: 10 mg Documented By: Admin: 05/21/25 12:14 Dose: 10 mg Documented By: Admin: 05/21/25 08:25 Dose: 10 mg Documented By: Admin: 05/20/25 12:46 Dose: 10 mg Documented By: Admin: 05/20/25 08:10 Dose: 10 mg Documented By: Admin: 05/19/25 17:21 Dose: 10 mg Documented By: DOLORES Mirtazapine (Mirtazapine Tab 15 Mg Tab) 30 mg PO HS [facility] Stop: 06/18/25 20:59 Last Admin: 05/21/25 21:32 Dose: 30 mg Documented By: Admin: 05/20/25 20:44 Dose: 30 mg Documented By: Admin: 05/19/25 20:48 Dose: 30 mg Documented By: JEY Miscellaneous (Remove Nicoderm Patch) 1 each N/A DAILY@0859 [facility] Stop: 06/19/25 08:58 Last Admin: 05/22/25 08:16 Dose: 1 each Documented By: Admin: 05/21/25 08:19 Dose: 1 each Documented By: Admin: 05/20/25 08:10 Dose: 1 each Documented By: ALAN Nicotine (Nicotine 21 Mg/24 Hr Tdsy) 1 patch TD QAM N[facility]AYAN Stop: 06/19/25 08:59 Last Admin: 05/22/25 08:17 Dose: 1 patch Documented By: Admin: 05/21/25 08:19 Dose: 1 patch Documented By: Admin: 05/20/25 08:11 Dose: 1 patch Documented By: ALAN Pantoprazole Sodium (Pantoprazole 40 Mg Tab) 40 mg PO DAILYBB [facility] Stop: 06/19/25 06:29 Last Admin: 05/22/25 06:07 Dose: 40 mg Documented By: Admin: 05/21/25 05:08 Dose: 40 mg Documented By: Admin: 05/20/25 06:32 Dose: 40 mg Documented By: JEY Propranolol HCl (Propranolol Hcl 20 Mg Tab) 20 mg PO AMHS [facility] Stop: 06/18/25 20:59 Last Admin: 05/22/25 08:15 Dose: 20 mg Documented By: Admin: 05/21/25 21:32 Dose: 20 mg Documented By: Admin: 05/21/25 08:20 Dose: 20 mg Documented By: Admin: 05/20/25 20:44 Dose: 20 mg Documented By: Admin: 05/20/25 08:14 Dose: 20 mg Documented By: Admin: 05/19/25 20:48 Dose: 20 mg Documented By: JEY Umeclidinium/Vilanterol (Umeclidinium/Vilanterol 62.5/25mcg 7 Puffs/Inhaler) 1 puffs INH QAM [facility] Stop: 06/19/25 08:59 Last Admin: 05/22/25 08:16 Dose: 1 puffs Documented By: Admin: 05/21/25 08:20 Dose: 1 puffs Documented By: Admin: 05/20/25 08:14 Dose: 1 puffs Documented By: ALAN Vitamin D (Cholecalciferol 25 Mcg (1000 Units) Tab) 25 mcg PO HS [facility] Stop: 06/18/25 20:59 Last Admin: 05/21/25 21:32 Dose: 25 mcg Documented By: Admin: 05/20/25 20:45 Dose: 25 mcg Documented By: Admin: 05/19/25 20:47 Dose: 25 mcg Documented By: JEY Discontinued Medications Albuterol (Albuterol 0.083% Nebu Soln 3 Ml Vial) 15 mg NEB NOW STA; Protocol Stop: 05/19/25 10:48 Last Admin: 05/19/25 11:13 Dose: 15 mg Documented By: ZOILA Albuterol (Albut/Ipratrop 3mg/0.5mg Neb 3 Ml Vial) 3 ml NEB NOW STA; Protocol Stop: 05/19/25 14:11 Last Admin: 05/19/25 15:42 Dose: Not Given Documented By: JEN Albuterol (Albut/Ipratrop 3mg/0.5mg Neb 3 Ml Vial) 3 ml NEB NOW STA; Protocol Stop: 05/21/25 02:34 Last Admin: 05/21/25 02:50 Dose: 3 ml Documented By: EMVictor M Doxycycline Hyclate (Doxycycline Hyclate 100 Mg Cap) 100 mg PO NOW STA Stop: 05/19/25 14:09 Last Admin: 05/19/25 15:41 Dose: 100 mg Documented By: JEN Furosemide (Furosemide 40 Mg/4 Ml Vial) 40 mg IV ONE ONE Stop: 05/22/25 15:33 Last Admin: 05/22/25 15:38 Dose: 40 mg Documented By: ROSITA Magnesium Sulfate/Dextrose (Magnesium Sulfate / D5w) 1 gm in 100 mls @ 100 mls/hr IV NOW STA Stop: 05/19/25 11:48 Last Infusion: 05/19/25 12:14 Dose: Infused Documented By: Admin: 05/19/25 10:55 Dose: 100 mls/hr Documented By: DELLA Azithromycin (Zithromax) 500 mg in 255 mls @ 127.5 mls/hr IV NOW ONE Stop: 05/19/25 16:06 Last Admin: 05/19/25 16:09 Dose: Not Given Documented By: JEN Cefepime HCl (Maxipime 2000mg) 2,000 mg in 20 mls @ 5 mls/min IV Q12H [facility]; Protocol Stop: 05/22/25 02:59 Last Admin: 05/21/25 14:51 Dose: 5 mls/min Documented By: Admin: 05/21/25 05:07 Dose: 5 mls/min Documented By: Admin: 05/20/25 15:05 Dose: 5 mls/min Documented By: Admin: 05/20/25 03:04 Dose: 5 mls/min Documented By: JEY Cefepime HCl (Maxipime 2000mg) 2,000 mg in 20 mls @ 5 mls/min IV ONE ONE; Protocol Stop: 05/19/25 15:03 Last Admin: 05/19/25 15:51 Dose: 5 mls/min Documented By: JEN Magnesium Sulfate/Dextrose (Magnesium Sulfate / D5w) 1 gm in 100 mls @ 50 mls/hr IV ONE ONE Stop: 05/21/25 04:32 Last Infusion: 05/21/25 07:07 Dose: Infused Documented By: Admin: 05/21/25 05:07 Dose: 50 mls/hr Documented By: BRANDON Insulin Aspart (Insulin Aspart Per Unit Charge) 5 units SC NOW STA Stop: 05/20/25 10:38 Last Admin: 05/20/25 10:51 Dose: 5 units Documented By: ALAN Co-signed By: ALYSE Methylprednisolone (Methylprednisolone 125 Mg/2 Ml Vial) 60 mg IV NOW STA Stop: 05/19/25 10:48 Last Admin: 05/19/25 10:55 Dose: 60 mg Documented By: DELLA Nicotine (Nicotine 21 Mg/24 Hr Tdsy) 1 patch TD ONE ONE Stop: 05/19/25 15:01 Last Admin: 05/19/25 15:52 Dose: 1 patch Documented By: [facility] Discharge Plan Visit Data Chief Complaint: Shortness of Breath/Dyspnea Stated Complaint: SOB ED Provider: Frank Landers Discharge Problem: Respiratory failure, acute and chronic, COPD exacerbation, Viral respiratory infection Patient Disposition: Admitted As Inpatient Condition: Serious Discharge Instructions Interventions: ED Discharge Assessment Last Done: 05/19/25 16:05 Discharge Problem: Respiratory failure, acute and chronic Qualifiers: Respiratory failure complication: hypoxia and hypercapnia Qualified Code(s): J 96.21 - Acute and chronic respiratory failure with hypoxia; J96.22 - Acute and chronic respiratory failure with hypercapnia
[2025-05-19] MEDS: MAGNESIUM SULFATE / D5W 1 GM/100 ML BAG IV STA (10:55)
[2025-05-19 11:06] LABS: Hematocrit (blood only) 47.8 % (42.0-52.0); Hemoglobin 15.5 g/dl (14.0-18.0); Immature Granulocytes # (auto) 0.15 K/uL (0.01-0.20); Immature Granulocytes % (auto) 1.0 %; Mean Corpuscular Hemoglobin 28.1 pg (25.0-34.0); Mean Corpuscular Volume 86.6 fL (80.0-100.0); Platelet Count 252 K/uL (130-400); RDW Standard Deviation 49.5 fL (36.4-46.3); Red Blood Count 5.52 M/uL (4.70-6.10); White Blood Count 15.30 K/ul (4.8-10.8)
--- NOTE | 2025-05-19 11:09 | XRay Report ---
XR chest 1V portable CLINICAL HISTORY: Dyspnea COMPARISON STUDY: 10/13/2024 FINDINGS: Heart size and pulmonary vasculature are normal. No consolidation or pleural effusion. No p neumothorax. IMPRESSION: No acute findings. ACT 112: Negative or not required by law. Electronically signed by: Kyle Frost M.D. 05/19/2025 11:07 AM
[2025-05-19] MEDS: ALBUTEROL 0.083% NEBU SOLN 3 ML VIAL NEB STA (11:13)
[2025-05-19 11:17] LABS: Alanine Aminotransferase 14.0 U/L (7-52); Albumin Globulin Ratio 1.5 (0.9-2); Albumin Level 4.1 gm/dl (3.4-5.0); Alkaline Phosphatase 66.0 U/L (34-104); Anion Gap 7.0 (3-11); Bilirubin,Total 0.7 mg/dl (0.2-1.0); Blood Urea Nitrogen 16.0 mg/dl (6-23); Calcium 9.5 mg/dl (8.6-10.3); Carbon Dioxide 30.0 mmol/L (21-32); Chloride 100.0 mmol/L (98-107); Creatinine Clr Calc Pharmacy 52.0 ml/min; Globulin 2.7 gm/dl (2.5-4.0); Glucose 135.0 mg/dl (70-99(Fasting)); Magnesium 1.8 mg/dl (1.7-2.4); Potassium 4.6 mmol/L (3.5-5.1); Sodium 137.0 mmol/L (136-145); Total Protein 6.8 gm/dl (6.0-8.3)
[2025-05-19 11:21] LABS: Base Excess VBG 6.1 mEq/L; HCO3 VBG 34 mmol/L; Oxygen Saturation VBG < 60.0 %; PCO2 VBG 58 mmHg (38-50); PO2 VBG 27 mmHg; pH VBG 7.37 (7.36-7.41)
[2025-05-19 12:57] LABS: Chlamydia pneumoniae PCR Not Detected (NotDetected); Coronavirus 229E PCR Not Detected (NotDetected); Coronavirus CoV-2 (COVID19)PCR Not Detected (NotDetected); Coronavirus HKU1 PCR Not Detected (NotDetected); Coronavirus NL63 PCR Not Detected (NotDetected); Coronavirus OC43PCR Not Detected (NotDetected); Human Metapneumovirus PCR Not Detected (NotDetected); Parainfluenza Virus 1 PCR Not Detected (NotDetected); Parainfluenza Virus 2 PCR Not Detected (NotDetected); Parainfluenza Virus 3 PCR Not Detected (NotDetected); Parainfluenza Virus 4 PCR Not Detected (NotDetected); Respiratory Syncytial VirusPCR Not Detected (NotDetected); Rhinovirus/Enterovirus PCR DETECTED (NotDetected)
--- NOTE | 2025-05-19 14:46 | History & Physical Report ---
Date of Service May 19, 2025 Assessment & Plan (1) COPD exacerbation: (2) Viral respiratory infection: (3) Chronic paranoid schizophrenia: (4) Acute hypoxemic respiratory failure: (5) CKD (chronic kidney disease) stage 3, GFR 30-59 ml/min: (6) Hypertension: (7) Tobacco use disorder: Plan This is a 74 y/o male with COPD, ongoing tobacco use, hx NSVT, prediabetes, prior CVA, chronic paranoid schizophrenia, HTN, CKD3, and other history as outlined below who presents to the ED today with low oxygen levels and wheezing, preceded by two weeks of URI symptoms. He was treated as an outpatient with ten days of prednisone and Augmentin but no significant relief. Symptoms seem to be worsening since finishing these medications. In the ED, he was noted to be hypoxic, but improved with 2L of O2 via NC. He was noted to be wheezing, required an hour long nebulizer treatment. [employer] respiratory panel was positive for entero-/rhinovirus, negative for flu/COVID/RSV. VBG showed a pH of 7.37, pCO2 elevated at 58, normal pO2 and HCO3. Noted to have a leukocytosis with WBC count 15.30 (infection vs. recent prednisone use). Pt was referred for admission due to hypoxia and failure of outpatient management of COPD exacerbation. #Acute hypoxic respiratory failure #COPD exacerbation #Viral respiratory infection - entero-/rhino-virus positive - Admit to PCU - IV Solu-Medrol 40 mg Q8 hours - Broad-spectrum antibiotic coverage with cefepime/doxycylcline - Sputum culture, MRSA swab - DuoNeb QID scheduled, Q2 hrs prn - Guaifenesin 600 mg BID, incentive spirometry, flutter valve - Labs in the AM - CBC, BMP - CT chest without contrast to evaluate for potential underlying pneumonia #Tobacco use disorder - continues to smoke 2 1/2 PPD - Smoking cessation advised - Nicotine patch ordered #CKD3 - baseline creatinine around 1.3 - Chronic, stable - BMP in the AM #Hypertension - Chronic, stable - continue outpatient meds #Chronic paranoid schizophrenia - Chronic, stable - follows with psychiatry - Continue outpatient regimen Pt seen and reviewed with collaborating physician, Dr. Head. Plan of care discussed and as outlined above. Code status: full code DVT prophylaxis: Simone Lizarraga PA-C History of Present Illness Chief Complaint: low oxygen level Primary Care Provider: [employer], [facility] (Dr. Segundo) This is a 74 y/o male with COPD, ongoing tobacco use, hx NSVT, prediabetes, prior CVA, chronic paranoid schizophrenia, HTN, CKD3, and other history as outlined below who presents to the ED today with low oxygen levels and wheezing. Pt reports that he started with cold symptoms about two weeks ago. Saw PCP and given ten days of Augmentin and a ten day prednisone taper. Did not feel like symptoms improved much, if at all, on these medications. Today, he was noted to be hypoxic at the [facility] so sent to the ED for evaluation. Pt reports cough that is mostly non-productive although feels like he needs to cough something up. Associated wheezing and dyspnea on exertion. He has been using his nebulizer at home, which provides some relief. He denies chest pain, palpitations, N/V/D. Appetite has been good. Dizzy at times. Still smoking 2 1/2 PPD. Does not use oxygen regularly as outpatient. Follows with [facility] pulmonology - last visit in February. No specific sick contacts at the [facility]. Allergies Allergy/AdvReac Type Severity Reaction Status Date / Time lithium Allergy Unknown Verified 12/10/23 19:47 Home Medications Medication Instructions Recorded Confirmed Type acetaminophen 500 mg tablet 1,000 mg PO Q8 PRN Fever Or Pain 10/23/22 05/19/25 History (Tylenol Extra Strength) haloperidol 5 mg tablet 5 mg PO QAM 10/23/22 05/19/25 History propranolol 20 mg tablet 20 mg PO AMHS 10/23/22 05/19/25 History aspirin 81 mg chewable tablet 81 mg PO QAM 12/10/23 05/19/25 History (Children's Aspirin) atorvastatin 20 mg tablet 20 mg PO HS 12/10/23 05/19/25 History fluoxetine 40 mg capsule 40 mg PO QPM 12/10/23 05/19/25 History methylphenidate HCl 10 mg tablet 10 mg PO BID 12/10/23 05/19/25 History pantoprazole 40 mg tablet,delayed 40 mg PO DAILYBB 12/10/23 05/19/25 History release amlodipine 5 mg tablet (Norvasc) 5 mg PO QAM #30 tabs 12/14/23 05/19/25 Rx ipratropium 0.5 mg-albuterol 3 mg 3 ml NEB Q4H PRN shortness of 12/14/23 05/19/25 Rx (2.5 mg base)/3 mL nebulization breath or wheezing #90 mL soln cholecalciferol (vitamin D3) 25 25 mcg PO HS 10/13/24 05/19/25 History mcg (1,000 unit) capsule (Vitamin D3) mirtazapine 30 mg tablet 30 mg PO HS 10/13/24 05/19/25 History albuterol sulfate 90 mcg/actuation 2 puff inhalation Q6H PRN 05/19/25 05/19/25 History aerosol inhaler Shortness Of Breath Or Wheezing haloperidol 10 mg tablet 10 mg PO QPM 05/19/25 05/19/25 History haloperidol decanoate 100 mg/mL 100 mg IM Q28D 05/19/25 05/19/25 History intramuscular solution umeclidinium 62.5 mcg-vilanterol 1 inh inhalation QAM 05/19/25 05/19/25 History 25 mcg/actuation powdr for inhalation (Anoro Ellipta) Past Med/Surg History Problem List (Updated 05/19/25 @ 17:04 by Dunia Lizarraga PA-C) Tobacco use disorder Viral respiratory infection COPD exacerbation CKD (chronic kidney disease) stage 3, GFR 30-59 ml/min Chronic paranoid schizophrenia Acute hypoxemic respiratory failure (Acute) Shortness of breath (Acute) Schizophrenia (Acute) COPD (chronic obstructive pulmonary disease) (Acute) Hypertension (Acute) Medical History (Updated 05/19/25 @ 17:04 by Dunia Lizarraga PA-C) Smoker Non-compliant patient History of leukemia as a child NSVT (nonsustained ventricular tachycardia) IN SETTING OF INFLUENZA AUG 2017 - DECLINED TO SEE VIDEO NEWS EDITOR PER MEDICAL RECORD Schizophrenia Hypertension Chronic obstructive pulmonary disease Surgical History Hx of right cataract extraction History of tooth extraction Family History Other Family history non-contributory Social History Smoking Status: Current every day smoker Tobacco Type: Cigarettes Cigarettes Per Day: 2-3 ppd; Second Hand Exposure: No; Do You Dip or Chew Tobacco: No; Hx Alcohol Use: No Hx Substance Use: No Preferred Language: Yakut Communication Ability: Effective 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 Beliefs That Will Affect Care: None Current Living Situation: Personal Care Facility Current Living Situation Comment: [facility] Feels Safe at Home: Yes Safety Concerns: Feels Safe At This Time Assistive Devices: None Review of Systems Review of Systems: All systems reviewed & are unremarkable except as noted in Subjective Physical Exam Physical Exam: General: awake, alert, NAD HEENT: no scleral icterus, nebulizer mask currently in place Neck: supple, trachea midline Heart: RRR Lungs: scattered expiratory wheezing, diminished air movement throughout Abdomen: soft, obese, NT, +BS Extremities: distal pulses intact and equal, no pedal edema Skin: warm, dry, no cyanosis Neurologic: Ox3, no confusion or dysarthria Results & Data Results & Data Vital Signs (Past 12 Hours) Vital Signs Temp Pulse Pulse Resp BP Pulse Ox O2 Del Method 05/19/25 14:00 83 19 94 05/19/25 14:00 142/82 H 05/19/25 14:00 142/82 H 05/19/25 14:00 142/82 H 05/19/25 14:00 142/82 H 05/19/25 13:57 76 18 96 05/19/25 13:30 146/89 H 05/19/25 13:30 82 21 136/81 98 05/19/25 13:24 80 19 97 05/19/25 13:12 82 21 98 05/19/25 13:00 136/81 05/19/25 12:54 89 19 98 05/19/25 12:30 92 H 27 H 97 05/19/25 12:30 141/100 H 05/19/25 12:30 141/100 H 05/19/25 12:19 71 05/19/25 12:15 82 20 98 05/19/25 12:03 74 20 97 05/19/25 12:00 136/80 05/19/25 11:47 131/90 05/19/25 11:36 70 24 99 05/19/25 11:30 88 15 117/68 95 05/19/25 11:24 72 20 98 05/19/25 11:13 80 20 91 Room Air 05/19/25 10:47 93 05/19/25 10:44 90 Room Air 05/19/25 10:28 36.6 C 86 17 160/97 H 90 Room Air Laboratory Results Lab Results 05/19/25 05/19/25 05/19/25 Range/Units 10:45 11:00 11:17 WBC 15.30 H (4.8-10.8) K/ul RBC 5.52 (4.70-6.10) M/uL Hgb 15.5 (14.0-18.0) g/dl Hct 47.8 (42.0-52.0) % MCV 86.6 (80.0-100.0) fL MCH 28.1 (25.0-34.0) pg MCHC 32.4 (32.0-36.0) g/dL RDW Std Deviation 49.5 H (36.4-46.3) fL RDW Coeff of Demond 16.2 H (11.5-14.5) % Plt Count 252 (130-400) K/uL MPV 10.1 (9.4-12.4) fL Immature Gran % (Auto) 1.0 % Neut % (Auto) 83.9 % Lymph % (Auto) 4.1 % [place] % (Auto) 9.2 % Eos % (Auto) 1.4 % Baso % (Auto) 0.4 % Neut # (Auto) 12.85 H (1.40-6.50) K/uL Lymph # (Auto) 0.63 L (1.20-3.40) K/uL [place] # (Auto) 1.40 H (0.11-0.59) K/uL Eos # (Auto) 0.21 (0.00-0.50) K/uL Baso # (Auto) 0.06 (0.00-0.20) K/uL Immature Gran # (Auto) 0.15 (0.01-0.20) K/uL VBG pH 7.37 (7.36-7.41) VBG pCO2 58 H (38-50) mmHg VBG pO2 27 mmHg VBG HCO3 34 mmol/L VBG O2 Saturation < 60.0 % VBG Base Excess 6.1 mEq/L Sodium 137 (136-145) mmol/L Potassium 4.6 (3.5-5.1) mmol/L Chloride 100 (98-107) mmol/L Carbon Dioxide 30 (21-32) mmol/L Anion Gap 7 (3-11) BUN 16 (6-23) mg/dl Creatinine 1.35 (0.6-1.4) mg/dl Est Cr Clr Drug Dosing 52.0 ml/min eGFR 55.44 BUN/Creatinine Ratio 11.9 (10-20) Glucose 135 H (70-99(Fasting)) mg/dl Calcium 9.5 (8.6-10.3) mg/dl Magnesium 1.8 (1.7-2.4) mg/dl Total Bilirubin 0.7 (0.2-1.0) mg/dl AST 15 (13-39) U/L ALT 14 (7-52) U/L Alkaline Phosphatase 66 (34-104) U/L Troponin I High Sens 24.6 H (0-20) pg/ml Total Protein 6.8 (6.0-8.3) gm/dl Albumin 4.1 (3.4-5.0) gm/dl Globulin 2.7 (2.5-4.0) gm/dl Albumin/Globulin Ratio 1.5 (0.9-2) Adenovirus (PCR) Not Detected (NotDetected) B. pertussis DNA (PCR) Not Detected (NotDetected) B.parapertussis DNA PCR Not Detected (NotDetected) C. pneumoniae DNA (PCR) Not Detected (NotDetected) Coronavirus OC43 (PCR) Not Detected (NotDetected) Coronavirus HKU1 (PCR) Not Detected (NotDetected) Coronavirus 229E (PCR) Not Detected (NotDetected) SARS-CoV-2 (PCR) Not Detected (NotDetected) Coronavirus NL63 (PCR) Not Detected (NotDetected) Human Metapneumovir PCR Not Detected (NotDetected) Influenza Type A (PCR) Not Detected (NotDetected) Influenza Type B (PCR) Not Detected (NotDetected) M. pneumoniae (PCR) Not Detected (NotDetected) Parainfluenza 1 (PCR) Not Detected (NotDetected) Parainfluenza 2 (PCR) Not Detected (NotDetected) Parainfluenza 3 (PCR) Not Detected (NotDetected) Parainfluenza 4 (PCR) Not Detected (NotDetected) RSV (PCR) Not Detected (NotDetected) Entero/Rhino (PCR) DETECTED A (NotDetected) 05/19/25 Range/Units 12:52 WBC (4.8-10.8) K/ul RBC (4.70-6.10) M/uL Hgb (14.0-18.0) g/dl Hct (42.0-52.0) % MCV (80.0-100.0) fL MCH (25.0-34.0) pg MCHC (32.0-36.0) g/dL RDW Std Deviation (36.4-46.3) fL RDW Coeff of Demond (11.5-14.5) % Plt Count (130-400) K/uL MPV (9.4-12.4) fL Immature Gran % (Auto) % Neut % (Auto) % Lymph % (Auto) % [place] % (Auto) % Eos % (Auto) % Baso % (Auto) % Neut # (Auto) (1.40-6.50) K/uL Lymph # (Auto) (1.20-3.40) K/uL [place] # (Auto) (0.11-0.59) K/uL Eos # (Auto) (0.00-0.50) K/uL Baso # (Auto) (0.00-0.20) K/uL Immature Gran # (Auto) (0.01-0.20) K/uL VBG pH (7.36-7.41) VBG pCO2 (38-50) mmHg VBG pO2 mmHg VBG HCO3 mmol/L VBG O2 Saturation % VBG Base Excess mEq/L Sodium (136-145) mmol/L Potassium (3.5-5.1) mmol/L Chloride (98-107) mmol/L Carbon Dioxide (21-32) mmol/L Anion Gap (3-11) BUN (6-23) mg/dl Creatinine (0.6-1.4) mg/dl Est Cr Clr Drug Dosing ml/min eGFR BUN/Creatinine Ratio (10-20) Glucose (70-99(Fasting)) mg/dl Calcium (8.6-10.3) mg/dl Magnesium (1.7-2.4) mg/dl Total Bilirubin (0.2-1.0) mg/dl AST (13-39) U/L ALT (7-52) U/L Alkaline Phosphatase (34-104) U/L Troponin I High Sens 20.4 H (0-20) pg/ml Total Protein (6.0-8.3) gm/dl Albumin (3.4-5.0) gm/dl Globulin (2.5-4.0) gm/dl Albumin/Globulin Ratio (0.9-2) Adenovirus (PCR) (NotDetected) B. pertussis DNA (PCR) (NotDetected) B.parapertussis DNA PCR (NotDetected) C. pneumoniae DNA (PCR) (NotDetected) Coronavirus OC43 (PCR) (NotDetected) Coronavirus HKU1 (PCR) (NotDetected) Coronavirus 229E (PCR) (NotDetected) SARS-CoV-2 (PCR) (NotDetected) Coronavirus NL63 (PCR) (NotDetected) Human Metapneumovir PCR (NotDetected) Influenza Type A (PCR) (NotDetected) Influenza Type B (PCR) (NotDetected) M. pneumoniae (PCR) (NotDetected) Parainfluenza 1 (PCR) (NotDetected) Parainfluenza 2 (PCR) (NotDetected) Parainfluenza 3 (PCR) (NotDetected) Parainfluenza 4 (PCR) (NotDetected) RSV (PCR) (NotDetected) Entero/Rhino (PCR) (NotDetected) Diagnostic Findings Chest X-Ray 05/19/25 10:47 XR chest 1V portable CLINICAL HISTORY: Dyspnea COMPARISON STUDY: 10/13/2024 FINDINGS: Heart size and pulmonary vasculature are normal. No consolidation or pleural effusion. No pneumothorax. IMPRESSION: No acute findings. ACT 112: Negative or not required by law. Electronically signed by: Kyle Frost M.D. 05/19/2025 11:07 AM Medications Administered Discontinued Medications Albuterol (Albuterol 0.083% Nebu Soln 3 Ml Vial) 15 mg NEB NOW STA; Protocol Stop: 05/19/25 10:48 Last Admin: 05/19/25 11:13 Dose: 15 mg Documented By: ZOILA Magnesium Sulfate/Dextrose (Magnesium Sulfate / D5w) 1 gm in 100 mls @ 100 mls/hr IV NOW STA Stop: 05/19/25 11:48 Last Infusion: 05/19/25 12:14 Dose: Infused Documented By: Admin: 05/19/25 10:55 Dose: 100 mls/hr Documented By: DELLA Methylprednisolone (Methylprednisolone 125 Mg/2 Ml Vial) 60 mg IV NOW STA Stop: 05/19/25 10:48 Last Admin: 05/19/25 10:55 Dose: 60 mg Documented By: DELLA (5) CKD (chronic kidney disease) stage 3, GFR 30-59 ml/min Chronic kidney disease stage 3 subtype: unspecified whether 3a or 3b Qualified Code(s): N18.30 - Chronic kidney disease, stage 3 unspecified (6) Hypertension Hypertension type: unspecified Qualified Code(s): I10 - Essential (primary) hypertension
--- NOTE | 2025-05-19 15:19 | Electrocardiogram Report ---
Test Reason : Blood Pressure : */* mmHG Vent. Rate : 80 BPM Atrial Rate : 80 BPM P-R Int : 120 ms QRS Dur : 78 ms QT Int : 330 ms P-R-T Axes : 48 -4 79 degrees QTcB Int : 380 ms Normal sinus rhythm Low voltage QRS Borderline ECG When compared with ECG of 14-Oct-2024 07:59, No significant change was found Confirmed by Librado Price ([id number]) on 05/19/2025 3:19:44 PM Referred By: REFERRED SELF Confirmed By: Librado Price
[2025-05-19] MEDS: ALBUT/IPRATROP 3MG/0.5MG NEB 3 ML VIAL NEB SCH (15:41)
[2025-05-19] MEDS: DOXYCYCLINE HYCLATE 100 MG CAP PO STA (15:41)
[2025-05-19] MEDS: ALBUT/IPRATROP 3MG/0.5MG NEB 3 ML VIAL NEB STA (15:42)
[2025-05-19] MEDS: CEFEPIME 2000MG 2,000 MG/20 ML SYR IV ONE (15:51)
[2025-05-19] MEDS: NICOTINE 21 MG/24 HR TDSY TD ONE (15:52)
[2025-05-19] MEDS: AZITHROMYCIN 500 MG/255 ML BAG IV ONE (16:09)
[2025-05-19] MEDS ORDERED: ACETAMINOPHEN 325 MG TAB PO PRN (16:33)
[2025-05-19] MEDS: METHYLPHENIDATE HCL 10 MG TABLET PO SCH (17:21)
--- NOTE | 2025-05-19 18:24 | CT Scan Report ---
HISTORY: Hypoxia and wheezing TECHNIQUE: CT imaging of the chest was performed without contrast. Images are presented in axial, sagittal, and coronal reformats. COMPARISON: Chest CT dated 10/13/2024. FINDINGS: Lungs: Severe emphysema. No focal consolidation concerning for pneumonia. No suspicious pulmonary nodules. The trachea and mainstem bronchi are clear. Heart/Mediastinum: Normal heart size. Coronary artery calcifications are present with multivessel disease. Included thyroid gland is unremarkable. Small hiatal hernia. No suspicious mediastinal or hilar lymph nodes. Vasculature: No thoracic aortic aneurysm. Mild atherosclerotic vascular disease of the aorta and arch vessels. Main pulmonary artery is normal in caliber. Soft Tissues: No enlarged axillary lymph nodes. Upper Abdomen: Included upper abdomen is unremarkable. Bones: Degenerative changes of the spine. Posterior disc osteophyte complex at T8-9 resulting in at least moderate central canal stenosis. No acute osseous abnormality. IMPRESSION: * No acute cardiopulmonary findings. * Severe COPD/emphysema. * Coronary artery atherosclerotic calcifications are present. * Additional chronic and/or incidental findings as above. Electronically signed by Dereck Pino 05-19-2025 6:23 PM
--- NOTE | 2025-05-19 18:34 | Communication Note ---
Date of Service: May 19, 2025 Attending Addendum: Case reviewed with the advanced practitioner. I have personally performed a history and physical examination on the patient. I have reviewed the advanced practitioner's documentation on the date of service referenced in note, and I agree with, and take responsibility for the plan of care. please refer to her notes for full details patient seen and examined, records reviewed by myself as well on exam, patient seen resting in bed, on 2 L NC, comfortable having dinner states breathing continues to improve no chest pain no other symptoms VS noted and reviewed oriented x 3, not in distress, speaks in sentences with no effort nor accessory muscle use normal rate, regular rhythm, no murmurs mild scattered BL wheeze, with intermittent rhonchi non distended, soft, nontender no bipedal edema, erythema, warmth no neuro deficits all labs, imaging noted and reviewed ASSESSMENT AND PLAN> ACUTE HYPOXIC RESPIRATORY FAILURE ACUTE BRONCHITIS, ENTERO/RHINOVIRUS INFECTION LIKELY UNDIAGNOSED COPD, CURRENTLY IN EXACERBATION nasal MRSA: negative sputum culture Duoneb q6h Solumedrol 40mg q8h Cefepime + Doxycycline other diagnoses and plan of care as per advanced practitioner's notes I spent a total of 40 minutes coordinating, documenting, and providing care for this patient, excluding time spent in the performance of separately billed services or time spent by another provider/QHP. Olman Head MD
[2025-05-19] MEDS: DOXYCYCLINE HYCLATE 100 MG CAP PO SCH (20:47)
[2025-05-19] MEDS: CHOLECALCIFEROL 25 MCG (1000 UNITS) TAB PO SCH (20:47)
[2025-05-19] MEDS: PROPRANOLOL HCL 20 MG TAB PO SCH (20:48)
[2025-05-19] MEDS: MIRTAZAPINE TAB 15 MG TAB PO SCH (20:48)
[2025-05-19] MEDS: ATORVASTATIN 20 MG TAB PO SCH (20:48)
[2025-05-19] MEDS: guaiFENesin 600 MG TABCR PO SCH (20:48)
[2025-05-20] MEDS: CEFEPIME 2000MG 2,000 MG/20 ML SYR IV SCH (03:04)
[2025-05-20 05:45] LABS: Hematocrit (blood only) 43.4 % (42.0-52.0); Hemoglobin 13.8 g/dl (14.0-18.0); Mean Corpuscular Hemoglobin 27.7 pg (25.0-34.0); Mean Corpuscular Volume 87.0 fL (80.0-100.0); Platelet Count 247 K/uL (130-400); RDW Standard Deviation 48.7 fL (36.4-46.3); Red Blood Count 4.99 M/uL (4.70-6.10); White Blood Count 15.05 K/ul (4.8-10.8)
[2025-05-20 06:16] LABS: Anion Gap 8.0 (3-11); Blood Urea Nitrogen 36.0 mg/dl (6-23); Calcium 8.7 mg/dl (8.6-10.3); Carbon Dioxide 23.0 mmol/L (21-32); Chloride 100.0 mmol/L (98-107); Creatinine Clr Calc Pharmacy 44.4 ml/min; Glucose 296.0 mg/dl (70-99(Fasting)); Potassium 5.0 mmol/L (3.5-5.1); Sodium 131.0 mmol/L (136-145)
[2025-05-20 06:49] LABS: Immature Granulocytes # (auto) 0.13 K/uL (0.01-0.20); Immature Granulocytes % (auto) 0.9 %; RBC Morphology Unremarkable
[2025-05-20] MEDS: REMOVE NICODERM PATCH SCH (08:10)
[2025-05-20] MEDS: NICOTINE 21 MG/24 HR TDSY TD SCH (08:11)
[2025-05-20] MEDS: ASPIRIN 81 MG CHEW PO SCH (08:11)
[2025-05-20] MEDS: UMECLIDINIUM/VILANTEROL 62.5/25MCG 7 PUFFS/INHALER INH SCH (08:14)
[2025-05-20] MEDS ORDERED: DEXTROSE 50% 50 ML SYRINGE IV PRN (10:45)
[2025-05-20] MEDS ORDERED: GLUCOSE 40% GEL 15 GM TUBE PO PRN (10:45)
[2025-05-20] MEDS ORDERED: GLUCAGON FOR INJ 1 MG VIAL SQ PRN (10:45)
[2025-05-20] MEDS ORDERED: GLUCOSE 10 TAB/TUBE PO PRN (10:45)
[2025-05-20] MEDS ORDERED: CARBOHYDRATES FOR HYPOGLYCEMIA PO PRN (10:45)
[2025-05-20] MEDS: INSULIN ASPART PER UNIT CHARGE SC STA (10:51)
--- NOTE | 2025-05-20 12:48 | Hospitalist Progress Note ---
Date of Service May 20, 2025 Assessment & Plan (1) COPD exacerbation: (2) Viral respiratory infection: (3) Chronic paranoid schizophrenia: (4) Acute hypoxemic respiratory failure: (5) CKD (chronic kidney disease) stage 3, GFR 30-59 ml/min: (6) Hypertension: (7) Tobacco use disorder: Plan 74 y/o male with COPD, ongoing tobacco use, hx NSVT, prediabetes, prior CVA, chronic paranoid schizophrenia, HTN, CKD3, and other history as outlined below who presents to the ED today with low oxygen levels and wheezing, preceded by two weeks of URI symptoms. He was treated as an outpatient with ten days of prednisone and Augmentin but no significant relief. Symptoms seem to be worsening since finishing these medications. In the ED, he was noted to be hypoxic, but improved with 2L of O2 via NC. He was noted to be wheezing, required an hour long nebulizer treatment. [employer] respiratory panel was positive for entero-/rhinovirus, negative for flu/COVID/RSV. VBG showed a pH of 7.37, pCO2 elevated at 58, normal pO2 and HCO3. Noted to have a leukocytosis with WBC count 15.30 (infection vs. recent prednisone use). Pt was referred for admission due to hypoxia and failure of outpatient management of COPD exacerbation. #Acute hypoxic respiratory failure #COPD exacerbation #Viral respiratory infection - entero-/rhino-virus positive - CT chest w/ Severe COPD/emphysema. - IV Solu-Medrol 40 mg Q8 hours, continue, taper once wheezing starts to improve. - Broad-spectrum antibiotic coverage with cefepime/doxycycline - Sputum culture sent, MRSA swab neg. - DuoNeb QID scheduled and prn - Guaifenesin 600 mg BID, incentive spirometry, flutter valve - Pt improving w/ sob and feels better per him, monitor. #Tobacco use disorder - continues to smoke 2 1/2 PPD - Smoking cessation advised - c/w Nicotine patch #CKD3 - baseline creatinine around 1.3 - Chronic, stable, Cr slightly up to 1.5 today, labs in AM, avoid nephrotoxics. #Hypertension- Chronic, stable - continue outpatient meds #Chronic paranoid schizophrenia - Chronic, stable - follows with psychiatry - Continue outpatient regimen #Prediabetes: ho, glucose elevated, will get A1c w/ AM labs, ssi while in hospital. Code status: full code DVT prophylaxis: Lovenox Admission and Anticipated Discharge Date Admission Date: May 19, 2025 Subjective Patient was seen and examined at bedside. Patient was lying in bed, on 2 L oxygen via nasal cannula, NAD. Patient reports improvement in his shortness of breath and cough. Patient denies sore throat/chest pain/nausea/vomiting/diarrhea. Patient reports eating okay and moving bowels okay. Physical Exam Physical Exam: General: awake, alert, NAD, 2L NC O2 HEENT: no scleral icterus. Neck: supple, trachea midline Heart: RRR Lungs: scattered expiratory wheezing, diminished air movement throughout Abdomen: soft, obese, NT, +BS Extremities: distal pulses intact and equal, no pedal edema Skin: warm, dry, no cyanosis Neurologic: Ox3, no confusion or dysarthria Results & Data Results & Data Vital Signs (Past 12 Hours) Vital Signs Temp Pulse Resp BP Pulse Ox O2 Del Method O2 Flow Rate 05/20/25 10:57 36.5 C 71 26 H 116/72 93 Nasal Cannula 05/20/25 10:47 78 22 93 Nasal Cannula 2 05/20/25 08:00 Nasal Cannula 2 05/20/25 07:36 36.3 C L 73 18 147/87 H 90 Nasal Cannula 2 05/20/25 07:10 74 20 94 Nasal Cannula 2 05/20/25 03:23 36.5 C 79 18 131/81 93 Nasal Cannula 2 (5) CKD (chronic kidney disease) stage 3, GFR 30-59 ml/min Chronic kidney disease stage 3 subtype: unspecified whether 3a or 3b Qualified Code(s): N18.30 - Chronic kidney disease, stage 3 unspecified (6) Hypertension Hypertension type: unspecified Qualified Code(s): I10 - Essential (primary) hypertension
[2025-05-20] MEDS: INSULIN ASPART PER UNIT CHARGE SC SCH (18:06)
[2025-05-21] MEDS: ALBUT/IPRATROP 3MG/0.5MG NEB 3 ML VIAL NEB STA (02:50)
[2025-05-21] MEDS: MAGNESIUM SULFATE / D5W 1 GM/100 ML BAG IV ONE (05:07)
[2025-05-21 08:04] LABS: Hematocrit (blood only) 42.5 % (42.0-52.0); Hemoglobin 13.5 g/dl (14.0-18.0); Mean Corpuscular Hemoglobin 27.7 pg (25.0-34.0); Mean Corpuscular Volume 87.1 fL (80.0-100.0); Platelet Count 243 K/uL (130-400); RDW Standard Deviation 49.2 fL (36.4-46.3); Red Blood Count 4.88 M/uL (4.70-6.10); White Blood Count 26.16 K/ul (4.8-10.8)
[2025-05-21 08:18] LABS: Anion Gap 7.0 (3-11); Blood Urea Nitrogen 44.0 mg/dl (6-23); Calcium 8.8 mg/dl (8.6-10.3); Carbon Dioxide 25.0 mmol/L (21-32); Chloride 101.0 mmol/L (98-107); Creatinine Clr Calc Pharmacy 43.9 ml/min; Glucose 216.0 mg/dl (70-99(Fasting)); Magnesium 2.4 mg/dl (1.7-2.4); Potassium 4.8 mmol/L (3.5-5.1); Sodium 133.0 mmol/L (136-145)
[2025-05-21 08:27] LABS: Hemoglobin A1C 6.9 % (4.5-5.6)
--- NOTE | 2025-05-21 15:09 | Hospitalist Progress Note ---
Date of Service May 21, 2025 Assessment & Plan (1) COPD exacerbation: (2) Viral respiratory infection: (3) Chronic paranoid schizophrenia: (4) Acute hypoxemic respiratory failure: (5) CKD (chronic kidney disease) stage 3, GFR 30-59 ml/min: (6) Hypertension: (7) Tobacco use disorder: Plan 74 y/o male with COPD, ongoing tobacco use, hx NSVT, prediabetes, prior CVA, chronic paranoid schizophrenia, HTN, CKD3, and other history as outlined below who presents to the ED today with low oxygen levels and wheezing, preceded by two weeks of URI symptoms. He was treated as an outpatient with ten days of prednisone and Augmentin but no significant relief. Symptoms seem to be worsening since finishing these medications. In the ED, he was noted to be hypoxic, but improved with 2L of O2 via NC. He was noted to be wheezing, required an hour long nebulizer treatment. [employer] respiratory panel was positive for entero-/rhinovirus, negative for flu/COVID/RSV. VBG showed a pH of 7.37, pCO2 elevated at 58, normal pO2 and HCO3. Noted to have a leukocytosis with WBC count 15.30 (infection vs. recent prednisone use). Pt was referred for admission due to hypoxia and failure of outpatient management of COPD exacerbation. #Acute hypoxic respiratory failure #COPD exacerbation #Viral respiratory infection - entero-/rhino-virus positive - CT chest w/ Severe COPD/emphysema. - IV Solu-Medrol 40 mg Q8 hours, continue, taper once wheezing starts to improve. - Broad-spectrum antibiotic coverage with cefepime/doxycycline - Sputum culture sent, MRSA swab neg. - DuoNeb QID scheduled and prn - Guaifenesin 600 mg BID, incentive spirometry, flutter valve - Pt improving w/ sob and feels better per him, monitor. Clinically improving and the IV Solu-Medrol has been changed to prednisone Continues to wheeze but without any fever and/or chills Will continue current medications and likely discharge in a day or 2 #Tobacco use disorder - continues to smoke 2 1/2 PPD - Smoking cessation advised - c/w Nicotine patch #CKD3 - baseline creatinine around 1.3 - Chronic, stable, Cr slightly up to 1.5 today, labs in AM, avoid nephrotoxics. Creatinine remains elevated at 1.59 Strongly advised to drink more fluid and will avoid giving any intravenous fluid #Hypertension- Chronic, stable - continue outpatient meds #Chronic paranoid schizophrenia - Chronic, stable - follows with psychiatry - Continue outpatient regimen #Prediabetes: ho, glucose elevated, will get A1c w/ AM labs, ssi while in hospital. Hemoglobin A1c is 6.9 Code status: full code DVT prophylaxis: Lovenox Admission and Anticipated Discharge Date Admission Date: May 19, 2025 Subjective The patient was seen and examined in telemetry unit He has been complaining of wheezing and no shortness of breath this morning Saturating normally on 2 L Denies any chest pain and/or palpitations, no abdominal pain nausea or vomiting and no fever and no chills Review of Systems Review of Systems: All systems reviewed and unremarkable except as noted below Physical Exam Physical Exam: Lying in bed with moderate shortness of breath at rest Constitutional: well developed, well nourished, + ill appearing and + obese Eyes: PERRL, conjunctivae normal, anicteric sclerae ENMT: external ear and nose normal, oropharynx normal Neck: trachea midline, no thyromegaly Respiratory: + respiratory distress Auscultation: + diminished lung sounds, + crackles (Minimal crackles at the bases) and + wheezes (Wheezing all over) Cardiovascular: Rate/Rhythm: regular rate and regular rhythm; not tachycardic Heart Sounds: normal S1 and normal S2; no murmur Extremities: no edema Gastrointestinal (Abdomen): Inspection/Auscultation: normal bowel sounds; abdomen not distended Percussion/Palpation: abdomen soft; abdomen nontender Musculoskeletal: No acute arthritis involving any of the joint Neurologic: normal touch/pain/proprioception and moves all extremities; no focal motor deficits Lymphatic: no cervical or axillary lymphadenopathy Results & Data Results & Data Vital Signs (Past 12 Hours) Vital Signs Temp Pulse Pulse Resp BP Pulse Ox O2 Del Method 05/21/25 14:03 70 20 93 Nasal Cannula 05/21/25 11:03 77 18 94 Nasal Cannula 05/21/25 10:32 36.2 C L 82 18 153/95 H 95 Nasal Cannula 05/21/25 09:00 Nasal Cannula 05/21/25 08:00 64 05/21/25 07:50 36.2 C L 63 20 143/85 H 92 Nasal Cannula 05/21/25 07:32 61 18 92 Nasal Cannula 05/21/25 04:14 36.6 C 60 18 125/77 91 Nasal Cannula O2 Flow Rate 05/21/25 14:03 2 05/21/25 11:03 2.5 05/21/25 10:32 3 05/21/25 09:00 2 05/21/25 08:00 05/21/25 07:50 3 05/21/25 07:32 3 05/21/25 04:14 2 Laboratory Results Short CBC 05/21/25 Range/Units 07:38 WBC 26.16 H (4.8-10.8) K/ul Hgb 13.5 L (14.0-18.0) g/dl Hct 42.5 (42.0-52.0) % Plt Count 243 (130-400) K/uL BMP 05/21/25 07:38 Sodium 133 L Potassium 4.8 Chloride 101 Carbon Dioxide 25 BUN 44 H Creatinine 1.59 H Glucose 216 H Calcium 8.8 Medications Administered Current Inpatient Medications Acetaminophen (Acetaminophen 325 Mg Tab) 650 mg PO Q4H PRN PRN Reason: Pain or Fever Stop: 06/18/25 16:32 Albuterol (Albut/Ipratrop 3mg/0.5mg Neb 3 Ml Vial) 3 ml NEB QIDR [facility]; Protocol Stop: 06/18/25 14:59 Last Admin: 05/21/25 14:03 Dose: 3 ml Amlodipine Besylate (Amlodipine Besylate 5 Mg Tab) 5 mg PO QAM [facility] Stop: 06/19/25 08:59 Last Admin: 05/21/25 08:21 Dose: 5 mg Aspirin (Aspirin 81 Mg Chew) 81 mg PO QAM [facility]AN Stop: 06/19/25 08:59 Last Admin: 05/21/25 08:25 Dose: 81 mg Atorvastatin Calcium (Atorvastatin 20 Mg Tab) 20 mg PO HS [facility]AN Stop: 06/18/25 20:59 Last Admin: 05/20/25 20:45 Dose: 20 mg Dextrose (Dextrose 50% 50 Ml Syringe) 25 - 50 ml IV UD PRN; Protocol PRN Reason: Hypoglycemia Protocol Stop: 06/19/25 10:44 Doxycycline Hyclate (Doxycycline Hyclate 100 Mg Cap) 100 mg PO BID [facility] Stop: 05/24/25 20:59 Last Admin: 05/21/25 08:21 Dose: 100 mg Fluoxetine HCl (Fluoxetine Hcl 20 Mg Cap) 40 mg PO QPM [facility] Stop: 06/18/25 20:59 Last Admin: 05/20/25 20:44 Dose: 40 mg Glucagon (Glucagon For Inj 1 Mg Vial) 1 mg SQ UD PRN; Protocol PRN Reason: Hypoglycemia Protocol Stop: 06/19/25 10:44 Glucose (Glucose 40% Gel 15 Gm Tube) 15 - 30 gm PO UD PRN; Protocol PRN Reason: Hypoglycemia Protocol Stop: 06/19/25 10:44 Glucose (Glucose 10 Tab/Tube) 4 - 8 tab PO UD PRN; Protocol PRN Reason: Hypoglycemia Protocol Stop: 06/19/25 10:44 Guaifenesin (Guaifenesin 600 Mg Tabcr) 600 mg PO Q12 [facility] Stop: 06/18/25 20:59 Last Admin: 05/21/25 08:21 Dose: 600 mg Haloperidol (Haloperidol 5 Mg Tab) 10 mg PO QPM [facility] Stop: 06/18/25 20:59 Last Admin: 05/20/25 20:44 Dose: 10 mg Haloperidol (Haloperidol 5 Mg Tab) 5 mg PO QAM N[facility]AN Stop: 06/19/25 08:59 Last Admin: 05/21/25 08:21 Dose: 5 mg Cefepime HCl (Maxipime 2000mg) 2,000 mg in 20 mls @ 5 mls/min IV Q12H [facility]; Protocol Stop: 05/22/25 02:59 Last Admin: 05/21/25 14:51 Dose: 5 mls/min Methylprednisolone 40 mg/ (Syringe) 0.64 mls @ 1.5 mls/min IV Q8 [facility] Stop: 06/18/25 21:59 Last Admin: 05/21/25 14:51 Dose: 1.5 mls/min Insulin Aspart (Insulin Aspart Per Unit Charge) 0 units SC ACHS [facility] Stop: 06/19/25 16:29 Last Admin: 05/21/25 12:05 Dose: Not Given Methylphenidate HCl (Methylphenidate Hcl 10 Mg Tablet) 10 mg PO BID@0800,1200 [facility] Stop: 06/02/25 16:44 Last Admin: 05/21/25 12:14 Dose: 10 mg Mirtazapine (Mirtazapine Tab 15 Mg Tab) 30 mg PO HS [facility]AN Stop: 06/18/25 20:59 Last Admin: 05/20/25 20:44 Dose: 30 mg Miscellaneous (Remove Nicoderm Patch) 1 each N/A DAILY@0859 [facility] Stop: 06/19/25 08:58 Last Admin: 05/21/25 08:19 Dose: 1 each Miscellaneous (Carbohydrates For Hypoglycemia ) 15 - 30 gm PO UD PRN PRN Reason: Hypoglycemia Treatment Stop: 06/19/25 10:44 Nicotine (Nicotine 21 Mg/24 Hr Tdsy) 1 patch TD QAM [facility] Stop: 06/19/25 08:59 Last Admin: 05/21/25 08:19 Dose: 1 patch Pantoprazole Sodium (Pantoprazole 40 Mg Tab) 40 mg PO DAILYBB [facility] Stop: 06/19/25 06:29 Last Admin: 05/21/25 05:08 Dose: 40 mg Propranolol HCl (Propranolol Hcl 20 Mg Tab) 20 mg PO AMHS [facility] Stop: 06/18/25 20:59 Last Admin: 05/21/25 08:20 Dose: 20 mg Umeclidinium/Vilanterol (Umeclidinium/Vilanterol 62.5/25mcg 7 Puffs/Inhaler) 1 puffs INH QAM [facility]AYAN Stop: 06/19/25 08:59 Last Admin: 05/21/25 08:20 Dose: 1 puffs Vitamin D (Cholecalciferol 25 Mcg (1000 Units) Tab) 25 mcg PO HS [facility]AN Stop: 06/18/25 20:59 Last Admin: 05/20/25 20:45 Dose: 25 mcg Okay (5) CKD (chronic kidney disease) stage 3, GFR 30-59 ml/min Chronic kidney disease stage 3 subtype: unspecified whether 3a or 3b Qualified Code(s): N18.30 - Chronic kidney disease, stage 3 unspecified (6) Hypertension Hypertension type: unspecified Qualified Code(s): I10 - Essential (primary) hypertension
[2025-05-22 06:29] LABS: Hematocrit (blood only) 42.6 % (42.0-52.0); Hemoglobin 13.8 g/dl (14.0-18.0); Mean Corpuscular Hemoglobin 28.1 pg (25.0-34.0); Mean Corpuscular Volume 86.8 fL (80.0-100.0); Platelet Count 234 K/uL (130-400); RDW Standard Deviation 49.7 fL (36.4-46.3); Red Blood Count 4.91 M/uL (4.70-6.10); White Blood Count 25.49 K/ul (4.8-10.8)
[2025-05-22 06:54] LABS: Immature Granulocytes # (auto) 0.28 K/uL (0.01-0.20); Immature Granulocytes % (auto) 1.1 %; RBC Morphology Unremarkable
[2025-05-22 07:09] LABS: Anion Gap 7.0 (3-11); Blood Urea Nitrogen 45.0 mg/dl (6-23); Calcium 8.5 mg/dl (8.6-10.3); Carbon Dioxide 25.0 mmol/L (21-32); Chloride 102.0 mmol/L (98-107); Creatinine Clr Calc Pharmacy 45.8 ml/min; Glucose 229.0 mg/dl (70-99(Fasting)); Magnesium 2.1 mg/dl (1.7-2.4); Potassium 4.8 mmol/L (3.5-5.1); Sodium 134.0 mmol/L (136-145)
--- NOTE | 2025-05-22 15:28 | Hospitalist Progress Note ---
Date of Service May 22, 2025 Assessment & Plan (1) COPD exacerbation: (2) Viral respiratory infection: (3) Chronic paranoid schizophrenia: (4) Acute hypoxemic respiratory failure: (5) CKD (chronic kidney disease) stage 3, GFR 30-59 ml/min: (6) Hypertension: (7) Tobacco use disorder: Plan 74 y/o male with COPD, ongoing tobacco use, hx NSVT, prediabetes, prior CVA, chronic paranoid schizophrenia, HTN, CKD3, and other history as outlined below who presents to the ED today with low oxygen levels and wheezing, preceded by two weeks of URI symptoms. He was treated as an outpatient with ten days of prednisone and Augmentin but no significant relief. Symptoms seem to be worsening since finishing these medications. In the ED, he was noted to be hypoxic, but improved with 2L of O2 via NC. He was noted to be wheezing, required an hour long nebulizer treatment. [employer] respiratory panel was positive for entero-/rhinovirus, negative for flu/COVID/RSV. VBG showed a pH of 7.37, pCO2 elevated at 58, normal pO2 and HCO3. Noted to have a leukocytosis with WBC count 15.30 (infection vs. recent prednisone use). Pt was referred for admission due to hypoxia and failure of outpatient management of COPD exacerbation. #Acute hypoxic respiratory failure #COPD exacerbation #Viral respiratory infection - entero-/rhino-virus positive - CT chest w/ Severe COPD/emphysema. - IV Solu-Medrol 40 mg Q8 hours, continue, taper once wheezing starts to improve. - Broad-spectrum antibiotic coverage with cefepime/doxycycline - Sputum culture sent, MRSA swab neg. - DuoNeb QID scheduled and prn - Guaifenesin 600 mg BID, incentive spirometry, flutter valve - Pt improving w/ sob and feels better per him, monitor. Clinically improving and the IV Solu-Medrol has been changed to prednisone Continues to wheeze but without any fever and/or chills Will continue current medications and likely discharge in a day or 2 His condition has not improved and is still having wheezing with shortness of breath and requiring 2.5 L Will continue current management and likely discharge tomorrow if he improves #Tobacco use disorder - continues to smoke 2 1/2 PPD - Smoking cessation advised - c/w Nicotine patch #CKD3 - baseline creatinine around 1.3 - Chronic, stable, Cr slightly up to 1.5 today, labs in AM, avoid nephrotoxics. Creatinine remains elevated at 1.59 Strongly advised to drink more fluid and will avoid giving any intravenous fluid Kidney function is slightly better and will not give any Lasix to make it worse #Hypertension- Chronic, stable - continue outpatient meds #Chronic paranoid schizophrenia - Chronic, stable - follows with psychiatry - Continue outpatient regimen #Prediabetes: ho, glucose elevated, will get A1c w/ AM labs, ssi while in hospital. Hemoglobin A1c is 6.9 Code status: full code DVT prophylaxis: Lovenox Admission and Anticipated Discharge Date Admission Date: May 19, 2025 Subjective The patient was seen and examined in telemetry unit He has been complaining of wheezing and no shortness of breath this morning Saturating normally on 2 L Denies any chest pain and/or palpitations, no abdominal pain nausea or vomiting and no fever and no chills 05/22/2025 The patient was seen and examined in telemetry with Continues to wheeze a lot with minimal shortness of breath at rest Requiring 2.5 L of oxygen to maintain saturation Review of Systems Review of Systems: All systems reviewed and are unremarkable except as noted below Physical Exam Physical Exam: Lying in bed with moderate shortness of breath at rest Constitutional: well developed, well nourished, + ill appearing and + obese Eyes: PERRL, conjunctivae normal, anicteric sclerae ENMT: external ear and nose normal, oropharynx normal Neck: trachea midline, no thyromegaly Respiratory: + respiratory distress Auscultation: + diminished lung sounds, + crackles (Minimal crackles at the bases) and + wheezes (Wheezing all over) Cardiovascular: Rate/Rhythm: regular rate and regular rhythm; not tachycardic Heart Sounds: normal S1 and normal S2; no murmur Extremities: no edema Gastrointestinal (Abdomen): Inspection/Auscultation: normal bowel sounds; abdomen not distended Percussion/Palpation: abdomen soft; abdomen nontender Neurologic: normal touch/pain/proprioception and moves all extremities; no focal motor deficits Lymphatic: no cervical or axillary lymphadenopathy Results & Data Results & Data Vital Signs (Past 12 Hours) Vital Signs Temp Pulse Pulse Resp BP Pulse Ox O2 Del Method 05/22/25 15:16 83 20 91 Nasal Cannula 05/22/25 14:51 88 05/22/25 11:16 149/92 H 05/22/25 11:15 89 18 93 Nasal Cannula 05/22/25 11:05 36.2 C L 80 18 91 Nasal Cannula 05/22/25 11:00 69 05/22/25 08:00 Nasal Cannula 05/22/25 07:46 89 18 91 Nasal Cannula 05/22/25 07:38 36.3 C L 70 18 147/84 H 93 Nasal Cannula O2 Flow Rate 05/22/25 15:16 2.5 05/22/25 14:51 05/22/25 11:16 05/22/25 11:15 2.5 05/22/25 11:05 2 05/22/25 11:00 05/22/25 08:00 2 05/22/25 07:46 2 05/22/25 07:38 2 Laboratory Results Short CBC 05/22/25 Range/Units 05:35 WBC 25.49 H (4.8-10.8) K/ul Hgb 13.8 L (14.0-18.0) g/dl Hct 42.6 (42.0-52.0) % Plt Count 234 (130-400) K/uL BMP 05/22/25 05:35 Sodium 134 L Potassium 4.8 Chloride 102 Carbon Dioxide 25 BUN 45 H Creatinine 1.53 H Glucose 229 H Calcium 8.5 L Medications Administered Right away Current Inpatient Medications Acetaminophen (Acetaminophen 325 Mg Tab) 650 mg PO Q4H PRN PRN Reason: Pain or Fever Stop: 06/18/25 16:32 Albuterol (Albut/Ipratrop 3mg/0.5mg Neb 3 Ml Vial) 3 ml NEB QIDR [facility]; Protocol Stop: 06/18/25 14:59 Last Admin: 05/22/25 15:14 Dose: 3 ml Amlodipine Besylate (Amlodipine Besylate 5 Mg Tab) [facility] Stop: 06/19/25 08:59 Last Admin: 05/22/25 08:16 Dose: 5 mg Aspirin (Aspirin 81 Mg Chew) [facility] Stop: 06/19/25 08:59 Last Admin: 05/22/25 08:15 Dose: 81 mg Atorvastatin Calcium (Atorvastatin 20 Mg Tab) 20 mg PO [facility] Stop: 06/18/25 20:59 Last Admin: 05/21/25 21:32 Dose: 20 mg Dextrose (Dextrose 50% 50 Ml Syringe) 25 - 50 ml IV UD PRN; Protocol PRN Reason: Hypoglycemia Protocol Stop: 06/19/25 10:44 Doxycycline Hyclate (Doxycycline Hyclate 100 Mg Cap) 100 mg PO BID [facility]AYAN Stop: 05/24/25 20:59 Last Admin: 05/22/25 08:16 Dose: 100 mg Fluoxetine HCl (Fluoxetine Hcl 20 Mg Cap) 40 mg PO QPM [facility]AN Stop: 06/18/25 20:59 Last Admin: 05/21/25 21:32 Dose: 40 mg Glucagon (Glucagon For Inj 1 Mg Vial) 1 mg SQ UD PRN; Protocol PRN Reason: Hypoglycemia Protocol Stop: 06/19/25 10:44 Glucose (Glucose 40% Gel 15 Gm Tube) 15 - 30 gm PO UD PRN; Protocol PRN Reason: Hypoglycemia Protocol Stop: 06/19/25 10:44 Glucose (Glucose 10 Tab/Tube) 4 - 8 tab PO UD PRN; Protocol PRN Reason: Hypoglycemia Protocol Stop: 06/19/25 10:44 Guaifenesin (Guaifenesin 600 Mg Tabcr) 600 mg PO Q12 [facility] Stop: 06/18/25 20:59 Last Admin: 05/22/25 08:16 Dose: 600 mg Haloperidol (Haloperidol 5 Mg Tab) 10 mg PO QPM [facility]AN Stop: 06/18/25 20:59 Last Admin: 05/21/25 21:32 Dose: 10 mg Haloperidol (Haloperidol 5 Mg Tab) 5 mg PO QAM [facility] Stop: 06/19/25 08:59 Last Admin: 05/22/25 08:16 Dose: 5 mg Methylprednisolone 40 mg/ (Syringe) 0.64 mls @ 1.5 mls/min IV Q8 [facility] Stop: 06/18/25 21:59 Last Admin: 05/22/25 13:20 Dose: 1.5 mls/min Insulin Aspart (Insulin Aspart Per Unit Charge) 0 units SC ACHS [facility] Stop: 06/19/25 16:29 Last Admin: 05/22/25 12:32 Dose: Not Given Methylphenidate HCl (Methylphenidate Hcl 10 Mg Tablet) 10 mg PO BID@0800,1200 [facility] Stop: 06/02/25 16:44 Last Admin: 05/22/25 12:33 Dose: 10 mg Mirtazapine (Mirtazapine Tab 15 Mg Tab) 30 mg PO HS [facility]AN Stop: 06/18/25 20:59 Last Admin: 05/21/25 21:32 Dose: 30 mg Miscellaneous (Remove Nicoderm Patch) 1 each N/A DAILY@0859 [facility] Stop: 06/19/25 08:58 Last Admin: 05/22/25 08:16 Dose: 1 each Miscellaneous (Carbohydrates For Hypoglycemia ) 15 - 30 gm PO UD PRN PRN Reason: Hypoglycemia Treatment Stop: 06/19/25 10:44 Nicotine (Nicotine 21 Mg/24 Hr Tdsy) 1 patch TD QAM [facility]AN Stop: 06/19/25 08:59 Last Admin: 05/22/25 08:17 Dose: 1 patch Pantoprazole Sodium (Pantoprazole 40 Mg Tab) 40 mg PO DAILYBB [facility] Stop: 06/19/25 06:29 Last Admin: 05/22/25 06:07 Dose: 40 mg Propranolol HCl (Propranolol Hcl 20 Mg Tab) 20 mg PO AMHS [facility] Stop: 06/18/25 20:59 Last Admin: 05/22/25 08:15 Dose: 20 mg Umeclidinium/Vilanterol (Umeclidinium/Vilanterol 62.5/25mcg 7 Puffs/Inhaler) 1 puffs INH QAM NARAYAN Stop: 06/19/25 08:59 Last Admin: 05/22/25 08:16 Dose: 1 puffs Vitamin D (Cholecalciferol 25 Mcg (1000 Units) Tab) 25 mcg PO HS [facility]AN Stop: 06/18/25 20:59 Last Admin: 05/21/25 21:32 Dose: 25 mcg (5) CKD (chronic kidney disease) stage 3, GFR 30-59 ml/min Chronic kidney disease stage 3 subtype: unspecified whether 3a or 3b Qualified Code(s): N18.30 - Chronic kidney disease, stage 3 unspecified (6) Hypertension Hypertension type: unspecified Qualified Code(s): I10 - Essential (primary) hypertension
[2025-05-22] MEDS: FUROSEMIDE 40 MG/4 ML VIAL IV ONE (15:38)
[2025-05-23 06:57] LABS: Anion Gap 6.0 (3-11); Blood Urea Nitrogen 52.0 mg/dl (6-23); Calcium 8.9 mg/dl (8.6-10.3); Carbon Dioxide 26.0 mmol/L (21-32); Chloride 104.0 mmol/L (98-107); Creatinine Clr Calc Pharmacy 45.9 ml/min; Glucose 164.0 mg/dl (70-99(Fasting)); Magnesium 2.1 mg/dl (1.7-2.4); Potassium 4.8 mmol/L (3.5-5.1); Sodium 136.0 mmol/L (136-145)
[2025-05-23] MEDS: FUROSEMIDE 40 MG/4 ML VIAL IV ONE (12:09)
[2025-05-23] MEDS ORDERED: ACETYLCYSTEINE 10% INHAL SOLN 4 ML **DISPENSED BY RESP. INH SCH ×2 (13:00→21:00)
--- NOTE | 2025-05-23 13:13 | Hospitalist Progress Note ---
Date of Service May 23, 2025 Assessment & Plan (1) COPD exacerbation: (2) Viral respiratory infection: (3) Chronic paranoid schizophrenia: (4) Acute hypoxemic respiratory failure: (5) CKD (chronic kidney disease) stage 3, GFR 30-59 ml/min: (6) Hypertension: (7) Tobacco use disorder: Plan 74 y/o male with COPD, ongoing tobacco use, hx NSVT, prediabetes, prior CVA, chronic paranoid schizophrenia, HTN, CKD3, and other history as outlined below who presents to the ED today with low oxygen levels and wheezing, preceded by two weeks of URI symptoms. He was treated as an outpatient with ten days of prednisone and Augmentin but no significant relief. Symptoms seem to be worsening since finishing these medications. In the ED, he was noted to be hypoxic, but improved with 2L of O2 via NC. He was noted to be wheezing, required an hour long nebulizer treatment. [employer] respiratory panel was positive for entero-/rhinovirus, negative for flu/COVID/RSV. VBG showed a pH of 7.37, pCO2 elevated at 58, normal pO2 and HCO3. Noted to have a leukocytosis with WBC count 15.30 (infection vs. recent prednisone use). Pt was referred for admission due to hypoxia and failure of outpatient management of COPD exacerbation. #Acute hypoxic respiratory failure #COPD exacerbation #Viral respiratory infection - entero-/rhino-virus positive - CT chest w/ Severe COPD/emphysema. - IV Solu-Medrol 40 mg Q8 hours, continue, taper once wheezing starts to improve. - Broad-spectrum antibiotic coverage with cefepime/doxycycline - Sputum culture sent, MRSA swab neg. - DuoNeb QID scheduled and prn - Guaifenesin 600 mg BID, incentive spirometry, flutter valve - Pt improving w/ sob and feels better per him, monitor. Clinically improving and the IV Solu-Medrol has been changed to prednisone Continues to wheeze but without any fever and/or chills Will continue current medications and likely discharge in a day or 2 His condition has not improved and is still having wheezing with shortness of breath and requiring 2.5 L Will continue current management and likely discharge tomorrow if he improves Clinically not any better and he still has significant wheezing and significant desaturation with minimal activities Will decrease IV Solu-Medrol to twice daily, give 1 dose of Lasix IV and start Mucomyst He is not yet ready to be discharged #Tobacco use disorder - continues to smoke 2 1/2 PPD - Smoking cessation advised - c/w Nicotine patch #CKD3 - baseline creatinine around 1.3 - Chronic, stable, Cr slightly up to 1.5 today, labs in AM, avoid nephrotoxics. Creatinine remains elevated at 1.59 Strongly advised to drink more fluid and will avoid giving any intravenous fluid Kidney function is slightly better and will not give any Lasix to make it wors e #Hypertension- Chronic, stable - continue outpatient meds #Chronic paranoid schizophrenia - Chronic, stable - follows with psychiatry - Continue outpatient regimen #Prediabetes: ho, glucose elevated, will get A1c w/ AM labs, ssi while in hospital. Hemoglobin A1c is 6.9 Code status: full code DVT prophylaxis: Lovenox Admission and Anticipated Discharge Date Admission Date: May 19, 2025 Subjective The patient was seen and examined in telemetry unit He has been complaining of wheezing and no shortness of breath this morning Saturating normally on 2 L Denies any chest pain and/or palpitations, no abdominal pain nausea or vomiting and no fever and no chills 05/22/2025 The patient was seen and examined in telemetry with Continues to wheeze a lot with minimal shortness of breath at rest Requiring 2.5 L of oxygen to maintain saturation 05/23/2025 The patient was seen and examined in telemetry unit He has been feeling a little better but he still complains to have shortness of breath at rest with profuse wheezing Saturation has been dropping with minimal exertion Review of Systems Review of Systems: All systems reviewed and are unremarkable except as noted below Physical Exam Physical Exam: Lying in bed with moderate shortness of breath at rest Constitutional: well developed, well nourished, + ill appearing and + obese Eyes: PERRL, conjunctivae normal, anicteric sclerae ENMT: external ear and nose normal, oropharynx normal Neck: trachea midline, no thyromegaly Respiratory: + respiratory distress Auscultation: + diminished lung sounds, + crackles (Minimal crackles at the bases) and + wheezes (Wheezing all over) Cardiovascular: Rate/Rhythm: regular rate and regular rhythm; not tachycardic Heart Sounds: normal S1 and normal S2; no murmur Extremities: no edema Gastrointestinal (Abdomen): Inspection/Auscultation: normal bowel sounds; abdomen not distended Percussion/Palpation: abdomen soft; abdomen nontender Musculoskeletal: No acute arthritis involving any of the joint Neurologic: normal touch/pain/proprioception and moves all extremities; no focal motor deficits Lymphatic: no cervical or axillary lymphadenopathy Results & Data Results & Data Vital Signs (Past 12 Hours) Vital Signs Temp Pulse Pulse Resp BP BP Pulse Ox 05/23/25 11:58 36.5 C 78 20 148/78 H 91 05/23/25 10:24 74 20 96 05/23/25 09:04 71 05/23/25 07:52 81 18 93 05/23/25 07:30 05/23/25 07:20 36.4 C L 74 20 134/70 94 05/23/25 02:48 36.8 C 71 18 123/73 95 O2 Del Method O2 Flow Rate 05/23/25 11:58 Nasal Cannula 2.5 05/23/25 10:24 Nasal Cannula 2 05/23/25 09:04 05/23/25 07:52 Nasal Cannula 2 05/23/25 07:30 Nasal Cannula 2 05/23/25 07:20 Nasal Cannula 2 05/23/25 02:48 Nasal Cannula 2.0 Laboratory Results BMP 05/23/25 06:05 Sodium 136 Potassium 4.8 Chloride 104 Carbon Dioxide 26 BUN 52 H Creatinine 1.52 H Glucose 164 H Calcium 8.9 Medications Administered Current Inpatient Medications Acetaminophen (Acetaminophen 325 Mg Tab) 650 mg PO Q4H PRN PRN Reason: Pain or Fever Stop: 06/18/25 16:32 Acetylcysteine (Acetylcysteine 10% Inhal Soln 4 Ml Dispensed By Resp.) 5 ml INH BIDR [facility] Stop: 06/22/25 18:59 Albuterol (Albut/Ipratrop 3mg/0.5mg Neb 3 Ml Vial) 3 ml NEB QIDR [facility]; Protocol Stop: 06/18/25 14:59 Last Admin: 05/23/25 10:24 Dose: 3 ml Amlodipine Besylate (Amlodipine Besylate 5 Mg Tab) [facility] [place]: 06/19/25 08:59 Last Admin: 05/23/25 08:57 Dose: 5 mg Aspirin (Aspirin 81 Mg Chew) 81 [facility] [place]: 06/19/25 08:59 Last Admin: 05/23/25 08:56 Dose: 81 mg Atorvastatin Calcium (Atorvastatin 20 Mg Tab) 20 mg PO HS [facility] Stop: 06/18/25 20:59 Last Admin: 05/22/25 21:47 Dose: 20 mg Dextrose (Dextrose 50% 50 Ml Syringe) 25 - 50 ml IV UD PRN; Protocol PRN Reason: Hypoglycemia Protocol Stop: 06/19/25 10:44 Doxycycline Hyclate (Doxycycline Hyclate 100 Mg Cap) 100 mg PO BID [facility] Stop: 05/24/25 20:59 Last Admin: 05/23/25 08:57 Dose: 100 mg Fluoxetine HCl (Fluoxetine Hcl 20 Mg Cap) 40 mg PO QPM [facility] Stop: 06/18/25 20:59 Last Admin: 05/22/25 21:47 Dose: 40 mg Glucagon (Glucagon For Inj 1 Mg Vial) 1 mg SQ UD PRN; Protocol PRN Reason: Hypoglycemia Protocol Stop: 06/19/25 10:44 Glucose (Glucose 40% Gel 15 Gm Tube) 15 - 30 gm PO UD PRN; Protocol PRN Reason: Hypoglycemia Protocol Stop: 06/19/25 10:44 Glucose (Glucose 10 Tab/Tube) 4 - 8 tab PO UD PRN; Protocol PRN Reason: Hypoglycemia Protocol Stop: 06/19/25 10:44 Guaifenesin (Guaifenesin 600 Mg Tabcr) 600 mg PO Q12 [facility] Stop: 06/18/25 20:59 Last Admin: 05/23/25 08:56 Dose: 600 mg Haloperidol (Haloperidol 5 Mg Tab) 10 mg PO QPM [facility] Stop: 06/18/25 20:59 Last Admin: 05/22/25 21:47 Dose: 10 mg Haloperidol (Haloperidol 5 Mg Tab) 5 mg PO QAM [facility] Stop: 06/19/25 08:59 Last Admin: 05/23/25 08:57 Dose: 5 mg Methylprednisolone 40 mg/ (Syringe) 0.64 mls @ 1.5 mls/min IV Q12H [facility] Stop: 06/22/25 17:59 Insulin Aspart (Insulin Aspart Per Unit Charge) 0 units SC ACHS [facility] Stop: 06/19/25 16:29 Last Admin: 05/23/25 12:35 Dose: Not Given Methylphenidate HCl (Methylphenidate Hcl 10 Mg Tablet) 10 mg PO BID@0800,1200 [facility] Stop: 06/02/25 16:44 Last Admin: 05/23/25 12:09 Dose: 10 mg Mirtazapine (Mirtazapine Tab 15 Mg Tab) 30 mg PO HS [facility] Stop: 06/18/25 20:59 Last Admin: 05/22/25 21:48 Dose: 30 mg Miscellaneous (Remove Nicoderm Patch) 1 each N/A DAILY@0859 [facility] Stop: 06/19/25 08:58 Last Admin: 05/23/25 08:58 Dose: 1 each Miscellaneous (Carbohydrates For Hypoglycemia ) 15 - 30 gm PO UD PRN PRN Reason: Hypoglycemia Treatment Stop: 06/19/25 10:44 Nicotine (Nicotine 21 Mg/24 Hr Tdsy) 1 patch TD QAM [facility] Stop: 06/19/25 08:59 Last Admin: 05/23/25 08:58 Dose: 1 patch Pantoprazole Sodium (Pantoprazole 40 Mg Tab) 40 mg PO DAILYBB [facility] Stop: 06/19/25 06:29 Last Admin: 05/23/25 06:29 Dose: 40 mg Propranolol HCl (Propranolol Hcl 20 Mg Tab) 20 mg PO AMHS [facility] Stop: 06/18/25 20:59 Last Admin: 05/23/25 08:57 Dose: 20 mg Umeclidinium/Vilanterol (Umeclidinium/Vilanterol 62.5/25mcg 7 Puffs/Inhaler) 1 puffs INH QAM [facility] Stop: 06/19/25 08:59 Last Admin: 05/23/25 08:58 Dose: 1 puffs Vitamin D (Cholecalciferol 25 Mcg (1000 Units) Tab) 25 mcg PO HS [facility] Stop: 06/18/25 20:59 Last Admin: 05/22/25 21:47 Dose: 25 mcg (5) CKD (chronic kidney disease) stage 3, GFR 30-59 ml/min Chronic kidney disease stage 3 subtype: unspecified whether 3a or 3b Qualified Code(s): N18.30 - Chronic kidney disease, stage 3 unspecified (6) Hypertension Hypertension type: unspecified Qualified Code(s): I10 - Essential (primary) hypertension
[2025-05-23] MEDS: ACETYLCYSTEINE 10% INHAL SOLN 4 ML **DISPENSED BY RESP. INH SCH (20:50)
[2025-05-24 06:10] LABS: Anion Gap 5.0 (3-11); Blood Urea Nitrogen 59.0 mg/dl (6-23); Calcium 9.0 mg/dl (8.6-10.3); Carbon Dioxide 29.0 mmol/L (21-32); Chloride 104.0 mmol/L (98-107); Creatinine Clr Calc Pharmacy 48.4 ml/min; Glucose 175.0 mg/dl (70-99(Fasting)); Potassium 4.8 mmol/L (3.5-5.1); Sodium 138.0 mmol/L (136-145)
[2025-05-24] MEDS: FUROSEMIDE 40 MG/4 ML VIAL IV ONE (08:49)
--- NOTE | 2025-05-24 14:43 | Hospitalist Progress Note ---
Date of Service May 24, 2025 Assessment & Plan (1) COPD exacerbation: (2) Viral respiratory infection: (3) Chronic paranoid schizophrenia: (4) Acute hypoxemic respiratory failure: (5) CKD (chronic kidney disease) stage 3, GFR 30-59 ml/min: (6) Hypertension: (7) Tobacco use disorder: Plan 74 y/o male with COPD, ongoing tobacco use, hx NSVT, prediabetes, prior CVA, chronic paranoid schizophrenia, HTN, CKD3, and other history as outlined below who presents to the ED today with low oxygen levels and wheezing, preceded by two weeks of URI symptoms. He was treated as an outpatient with ten days of prednisone and Augmentin but no significant relief. Symptoms seem to be worsening since finishing these medications. In the ED, he was noted to be hypoxic, but improved with 2L of O2 via NC. He was noted to be wheezing, required an hour long nebulizer treatment. [employer] respiratory panel was positive for entero-/rhinovirus, negative for flu/COVID/RSV. VBG showed a pH of 7.37, pCO2 elevated at 58, normal pO2 and HCO3. Noted to have a leukocytosis with WBC count 15.30 (infection vs. recent prednisone use). Pt was referred for admission due to hypoxia and failure of outpatient management of COPD exacerbation. #Acute hypoxic respiratory failure #COPD exacerbation #Viral respiratory infection - entero-/rhino-virus positive - CT chest w/ Severe COPD/emphysema. - IV Solu-Medrol 40 mg Q8 hours, continue, taper once wheezing starts to improve. - Broad-spectrum antibiotic coverage with cefepime/doxycycline - Sputum culture sent, MRSA swab neg. - DuoNeb QID scheduled and prn - Guaifenesin 600 mg BID, incentive spirometry, flutter valve - Pt improving w/ sob and feels better per him, monitor. Clinically improving and the IV Solu-Medrol has been changed to prednisone Continues to wheeze but without any fever and/or chills Will continue current medications and likely discharge in a day or 2 His condition has not improved and is still having wheezing with shortness of breath and requiring 2.5 L Will continue current management and likely discharge tomorrow if he improves Clinically not any better and he still has significant wheezing and significant desaturation with minimal activities Will decrease IV Solu-Medrol to twice daily, give 1 dose of Lasix IV and start Mucomyst He has been little better today and will give additional dose of 40 mg of Lasix today Continue with current management and likely discharge on Monday #Tobacco use disorder - continues to smoke 2 1/2 PPD - Smoking cessation advised - c/w Nicotine patch #CKD3 - baseline creatinine around 1.3 - Chronic, stable, Cr slightly up to 1.5 today, labs in AM, avoid nephrotoxics. Creatinine remains elevated at 1.59 Strongly advised to drink more fluid and will avoid giving any intravenous fluid Kidney function is slightly better and will not give any Lasix to make it worse Creatinine remains stable and shows minimal improvement #Hypertension- Chronic, stable - continue outpatient meds #Chronic paranoid schizophrenia - Chronic, stable - follows with psychiatry - Continue outpatient regimen #Prediabetes: ho, glucose elevated, will get A1c w/ AM labs, ssi while in hospital. Hemoglobin A1c is 6.9 Code status: full code DVT prophylaxis: Lovenox Admission and Anticipated Discharge Date Admission Date: May 19, 2025 Subjective The patient was seen and examined in telemetry unit He has been complaining of wheezing and no shortness of breath this morning Saturating normally on 2 L Denies any chest pain and/or palpitations, no abdominal pain nausea or vomiting and no fever and no chills 05/22/2025 The patient was seen and examined in telemetry with Continues to wheeze a lot with minimal shortness of breath at rest Requiring 2.5 L of oxygen to maintain saturation 05/23/2025 The patient was seen and examined in telemetry unit He has been feeling a little better but he still complains to have shortness of breath at rest with profuse wheezing Saturation has been dropping with minimal exertion 05/24/2025 The patient was seen and examined in telemetry unit He seems to be little better today with less wheezing and shortness of breath at rest He still has significant positive fluid balance Review of Systems Review of Systems: All systems reviewed and are unremarkable except as noted below Physical Exam Physical Exam: Lying in bed with moderate shortness of breath at rest Constitutional: well developed, well nourished, + ill appearing and + obese Eyes: PERRL, conjunctivae normal, anicteric sclerae ENMT: external ear and nose normal, oropharynx normal Neck: trachea midline, no thyromegaly Respiratory: + respiratory distress Auscultation: + diminished lung sounds, + crackles (Minimal crackles at the bases) and + wheezes (Wheezing all over) Cardiovascular: Rate/Rhythm: regular rate and regular rhythm; not tachycardic Heart Sounds: normal S1 and normal S2; no murmur Extremities: no edema Gastrointestinal (Abdomen): Inspection/Auscultation: normal bowel sounds; abdomen not distended Percussion/Palpation: abdomen soft; abdomen nontender Neurologic: normal touch/pain/proprioception and moves all extremities; no focal motor deficits Lymphatic: no cervical or axillary lymphadenopathy Results & Data Results & Data Vital Signs (Past 12 Hours) Vital Signs Temp Pulse Pulse Pulse Resp BP Pulse Ox 05/24/25 11:20 86 20 92 05/24/25 11:02 36.5 C 82 21 155/95 H 94 05/24/25 09:32 75 05/24/25 07:56 71 18 94 05/24/25 07:32 05/24/25 07:08 36.4 C L 72 20 168/92 H 96 05/24/25 04:00 36.7 C 79 20 149/96 H 93 O2 Del Method O2 Flow Rate 05/24/25 11:20 Nasal Cannula 2 05/24/25 11:02 Nasal Cannula 2 05/24/25 09:32 05/24/25 07:56 Nasal Cannula 2 05/24/25 07:32 Nasal Cannula 2 05/24/25 07:08 Nasal Cannula 2 05/24/25 04:00 Nasal Cannula 2 Laboratory Results BMP 05/24/25 05:16 Sodium 138 Potassium 4.8 Chloride 104 Carbon Dioxide 29 BUN 59 H Creatinine 1.44 H Glucose 175 H Calcium 9.0 Medications Administered Current Inpatient Medications Acetaminophen (Acetaminophen 325 Mg Tab) 650 mg PO Q4H PRN PRN Reason: Pain or Fever Stop: 06/18/25 16:32 Acetylcysteine (Acetylcysteine 10% Inhal Soln 4 Ml Dispensed By Resp.) 5 ml INH BIDR [facility] Stop: 06/22/25 18:59 Last Admin: 05/24/25 07:55 Dose: 5 ml Albuterol (Albut/Ipratrop 3mg/0.5mg Neb 3 Ml Vial) 3 ml NEB QIDR [facility]; Protocol Stop: 06/18/25 14:59 Last Admin: 05/24/25 11:18 Dose: 3 ml Amlodipine Besylate (Amlodipine Besylate 5 Mg Tab) 5 mg PO QAM [facility] Stop: 06/19/25 08:59 Last Admin: 05/24/25 08:30 Dose: 5 mg Aspirin (Aspirin 81 Mg Chew) 81 mg PO QAM [facility] Stop: 06/19/25 08:59 Last Admin: 05/24/25 08:29 Dose: 81 mg Atorvastatin Calcium (Atorvastatin 20 Mg Tab) 20 mg PO HS [facility] Stop: 06/18/25 20:59 Last Admin: 05/23/25 21:07 Dose: 20 mg Dextrose (Dextrose 50% 50 Ml Syringe) 25 - 50 ml IV UD PRN; Protocol PRN Reason: Hypoglycemia Protocol Stop: 06/19/25 10:44 Doxycycline Hyclate (Doxycycline Hyclate 100 Mg Cap) 100 mg PO BID [facility] Stop: 05/24/25 20:59 Last Admin: 05/24/25 08:30 Dose: 100 mg Fluoxetine HCl (Fluoxetine Hcl 20 Mg Cap) 40 mg PO QPM [facility] Stop: 06/18/25 20:59 Last Admin: 05/23/25 21:07 Dose: 40 mg Glucagon (Glucagon For Inj 1 Mg Vial) 1 mg SQ UD PRN; Protocol PRN Reason: Hypoglycemia Protocol Stop: 06/19/25 10:44 Glucose (Glucose 40% Gel 15 Gm Tube) 15 - 30 gm PO UD PRN; Protocol PRN Reason: Hypoglycemia Protocol Stop: 06/19/25 10:44 Glucose (Glucose 10 Tab/Tube) 4 - 8 tab PO UD PRN; Protocol PRN Reason: Hypoglycemia Protocol Stop: 06/19/25 10:44 Guaifenesin (Guaifenesin 600 Mg Tabcr) 600 mg PO Q12 [facility] Stop: 06/18/25 20:59 Last Admin: 05/24/25 08:30 Dose: 600 mg Haloperidol (Haloperidol 5 Mg Tab) 10 mg PO QPM [facility] Stop: 06/18/25 20:59 Last Admin: 05/23/25 21:07 Dose: 10 mg Haloperidol (Haloperidol 5 Mg Tab) 5 mg PO QAM [facility] Stop: 06/19/25 08:59 Last Admin: 05/24/25 08:30 Dose: 5 mg Methylprednisolone 40 mg/ (Syringe) 0.64 mls @ 1.5 mls/min IV Q12H [facility] Stop: 06/22/25 17:59 Last Admin: 05/24/25 05:23 Dose: 1.5 mls/min Insulin Aspart (Insulin Aspart Per Unit Charge) 0 units SC ACHS [facility] Stop: 06/19/25 16:29 Last Admin: 05/24/25 12:20 Dose: Not Given Methylphenidate HCl (Methylphenidate Hcl 10 Mg Tablet) 10 mg PO BID@0800,1200 [facility] Stop: 06/02/25 16:44 Last Admin: 05/24/25 12:20 Dose: 10 mg Mirtazapine (Mirtazapine Tab 15 Mg Tab) 30 mg PO HS [facility] Stop: 06/18/25 20:59 Last Admin: 05/23/25 21:07 Dose: 30 mg Miscellaneous (Remove Nicoderm Patch) 1 each N/A DAILY@0859 [facility] Stop: 06/19/25 08:58 Last Admin: 05/24/25 08:31 Dose: 1 each Miscellaneous (Carbohydrates For Hypoglycemia ) 15 - 30 gm PO UD PRN PRN Reason: Hypoglycemia Treatment Stop: 06/19/25 10:44 Nicotine (Nicotine 21 Mg/24 Hr Tdsy) 1 patch TD QAM [facility] Stop: 06/19/25 08:59 Last Admin: 05/24/25 08:31 Dose: 1 patch Pantoprazole Sodium (Pantoprazole 40 Mg Tab) 40 mg PO DAILYBB [facility] Stop: 06/19/25 06:29 Last Admin: 05/24/25 05:23 Dose: 40 mg Propranolol HCl (Propranolol Hcl 20 Mg Tab) 20 mg PO AMHS [facility] Stop: 06/18/25 20:59 Last Admin: 05/24/25 08:30 Dose: 20 mg Umeclidinium/Vilanterol (Umeclidinium/Vilanterol 62.5/25mcg 7 Puffs/Inhaler) 1 puffs INH QAM [facility] Stop: 06/19/25 08:59 Last Admin: 05/24/25 08:31 Dose: 1 puffs Vitamin D (Cholecalciferol 25 Mcg (1000 Units) Tab) 25 mcg PO HS [facility] Stop: 06/18/25 20:59 Last Admin: 05/23/25 21:07 Dose: 25 mcg (5) CKD (chronic kidney disease) stage 3, GFR 30-59 ml/min Chronic kidney disease stage 3 subtype: unspecified whether 3a or 3b Qualified Code(s): N18.30 - Chronic kidney disease, stage 3 unspecified (6) Hypertension Hypertension type: unspecified Qualified Code(s): I10 - Essential (primary) hypertension
--- NOTE | 2025-05-25 13:29 | Hospitalist Progress Note ---
Date of Service May 25, 2025 Assessment & Plan (1) COPD exacerbation: (2) Viral respiratory infection: (3) Chronic paranoid schizophrenia: (4) Acute hypoxemic respiratory failure: (5) CKD (chronic kidney disease) stage 3, GFR 30-59 ml/min: (6) Hypertension: (7) Tobacco use disorder: Plan 74 y/o male with COPD, ongoing tobacco use, hx NSVT, prediabetes, prior CVA, chronic paranoid schizophrenia, HTN, CKD3, and other history as outlined below who presents to the ED today with low oxygen levels and wheezing, preceded by two weeks of URI symptoms. He was treated as an outpatient with ten days of prednisone and Augmentin but no significant relief. Symptoms seem to be worsening since finishing these medications. In the ED, he was noted to be hypoxic, but improved with 2L of O2 via NC. He was noted to be wheezing, required an hour long nebulizer treatment. [employer] respiratory panel was positive for entero-/rhinovirus, negative for flu/COVID/RSV. VBG showed a pH of 7.37, pCO2 elevated at 58, normal pO2 and HCO3. Noted to have a leukocytosis with WBC count 15.30 (infection vs. recent prednisone use). Pt was referred for admission due to hypoxia and failure of outpatient management of COPD exacerbation. #Acute hypoxic respiratory failure #COPD exacerbation #Viral respiratory infection - entero-/rhino-virus positive - CT chest w/ Severe COPD/emphysema. - IV Solu-Medrol 40 mg Q8 hours, continue, taper once wheezing starts to improve. - Broad-spectrum antibiotic coverage with cefepime/doxycycline - Sputum culture sent, MRSA swab neg. - DuoNeb QID scheduled and prn - Guaifenesin 600 mg BID, incentive spirometry, flutter valve - Pt improving w/ sob and feels better per him, monitor. Clinically improving and the IV Solu-Medrol has been changed to prednisone Continues to wheeze but without any fever and/or chills Will continue current medications and likely discharge in a day or 2 His condition has not improved and is still having wheezing with shortness of breath and requiring 2.5 L Will continue current management and likely discharge tomorrow if he improves Clinically not any better and he still has significant wheezing and significant desaturation with minimal activities Will decrease IV Solu-Medrol to twice daily, give 1 dose of Lasix IV and start Mucomyst He has been little better today and will give additional dose of 40 mg of Lasix today Continue with current management and likely discharge on Monday Clinically much better and will continue current management Likely discharge tomorrow and will have a 2 steps O2 saturation test prior to discharge #Tobacco use disorder - continues to smoke 2 / PPD - Smoking cessation advised - c/w Nicotine patch #CKD3 - baseline creatinine around 1.3 - Chronic, stable, Cr slightly up to 1.5 today, labs in AM, avoid nephrotoxics. Creatinine remains elevated at 1.59 Strongly advised to drink more fluid and will avoid giving any intravenous fluid Kidney function is slightly better and will not give any Lasix to make it worse Creatinine remains stable and shows minimal improvement Kidney function is much improved #Hypertension- Chronic, stable - continue outpatient meds #Chronic paranoid schizophrenia - Chronic, stable - follows with psychiatry - Continue outpatient regimen #Prediabetes: ho, glucose elevated, will get A1c w/ AM labs, ssi while in hospital. Hemoglobin A1c is 6.9 Code status: full code DVT prophylaxis: Lovenox Admission and Anticipated Discharge Date Admission Date: May 19, 2025 Subjective The patient was seen and examined in telemetry unit He has been complaining of wheezing and no shortness of breath this morning Saturating normally on 2 L Denies any chest pain and/or palpitations, no abdominal pain nausea or vomiting and no fever and no chills 05/22/2025 The patient was seen and examined in telemetry with Continues to wheeze a lot with minimal shortness of breath at rest Requiring 2.5 L of oxygen to maintain saturation 05/23/2025 The patient was seen and examined in telemetry unit He has been feeling a little better but he still complains to have shortness of breath at rest with profuse wheezing Saturation has been dropping with minimal exertion 05/24/2025 The patient was seen and examined in telemetry unit He seems to be little better today with less wheezing and shortness of breath at rest He still has significant positive fluid balance 05/25/2025 Patient was seen and examined in telemetry unit He has been much better today with minimal wheezing and no shortness of breath at rest Still on 2 L of nasal cannula Will get 8-8 steps O2 saturation test tomorrow prior to discharge Review of Systems Review of Systems: All systems reviewed and are unremarkable except as noted below Physical Exam Physical Exam: Lying in bed with moderate shortness of breath at rest Constitutional: well developed, well nourished, + ill appearing and + obese Eyes: PERRL, conjunctivae normal, anicteric sclerae ENMT: external ear and nose normal, oropharynx normal Neck: trachea midline, no thyromegaly Respiratory: + respiratory distress Auscultation: + diminished lung sounds, + crackles (Minimal crackles at the bases) and + wheezes (Wheezing all over) Cardiovascular: Rate/Rhythm: regular rate and regular rhythm; not tachycardic Heart Sounds: normal S1 and normal S2; no murmur Extremities: no edema Gastrointestinal (Abdomen): Inspection/Auscultation: normal bowel sounds; abdomen not distended Percussion/Palpation: abdomen soft; abdomen nontender Musculoskeletal: No acute arthritis involving any of the joint Neurologic: normal touch/pain/proprioception and moves all extremities; no focal motor deficits Lymphatic: no cervical or axillary lymphadenopathy Results & Data Results & Data Vital Signs (Past 12 Hours) Vital Signs Temp Pulse Pulse Pulse Resp BP Pulse Ox 05/25/25 11:46 36.6 C 85 22 172/99 H 92 05/25/25 10:55 80 20 94 05/25/25 07:37 78 18 93 05/25/25 07:30 78 05/25/25 07:30 05/25/25 07:09 36.5 C 93 H 23 159/97 H 93 05/25/25 03:43 36.5 C 96 H 18 163/92 H 92 05/25/25 03:00 Pulse Ox O2 Del Method O2 Del Method O2 Flow Rate O2 Flow Rate 05/25/25 11:46 Nasal Cannula 2 05/25/25 10:55 Nasal Cannula 2 05/25/25 07:37 Nasal Cannula 2 05/25/25 07:30 05/25/25 07:30 Nasal Cannula 2 05/25/25 07:09 Nasal Cannula 2 05/25/25 03:43 Nasal Cannula 2 05/25/25 03:00 96 Nasal Cannula 2 Medications Administered Current Inpatient Medications Acetaminophen (Acetaminophen 325 Mg Tab) 650 mg PO Q4H PRN PRN Reason: Pain or Fever Stop: 06/18/25 16:32 Acetylcysteine (Acetylcysteine 10% Inhal Soln 4 Ml Dispensed By Resp.) 5 ml INH BIDR [facility] Stop: 06/22/25 18:59 Last Admin: 05/25/25 07:37 Dose: 5 ml Albuterol (Albut/Ipratrop 3mg/0.5mg Neb 3 Ml Vial) 3 ml NEB QIDR [facility]; Protocol Stop: 06/18/25 14:59 Last Admin: 05/25/25 10:55 Dose: 3 ml Amlodipine Besylate (Amlodipine Besylate 5 Mg Tab) 5 mg PO QAM [facility] Stop: 06/19/25 08:59 Last Admin: 05/25/25 08:50 Dose: 5 mg Aspirin (Aspirin 81 Mg Chew) 81 mg PO QAM [facility] Stop: 06/19/25 08:59 Last Admin: 05/25/25 11:01 Dose: 81 mg Atorvastatin Calcium (Atorvastatin 20 Mg Tab) 20 mg PO HS [facility] Stop: 06/18/25 20:59 Last Admin: 05/24/25 21:44 Dose: 20 mg Dextrose (Dextrose 50% 50 Ml Syringe) 25 - 50 ml IV UD PRN; Protocol PRN Reason: Hypoglycemia Protocol Stop: 06/19/25 10:44 Fluoxetine HCl (Fluoxetine Hcl 20 Mg Cap) 40 mg PO QPM [facility] Stop: 06/18/25 20:59 Last Admin: 05/24/25 21:44 Dose: 40 mg Glucagon (Glucagon For Inj 1 Mg Vial) 1 mg SQ UD PRN; Protocol PRN Reason: Hypoglycemia Protocol Stop: 06/19/25 10:44 Glucose (Glucose 40% Gel 15 Gm Tube) 15 - 30 gm PO UD PRN; Protocol PRN Reason: Hypoglycemia Protocol Stop: 06/19/25 10:44 Glucose (Glucose 10 Tab/Tube) 4 - 8 tab PO UD PRN; Protocol PRN Reason: Hypoglycemia Protocol Stop: 06/19/25 10:44 Guaifenesin (Guaifenesin 600 Mg Tabcr) 600 mg PO Q12 [facility] Stop: 06/18/25 20:59 Last Admin: 05/25/25 08:50 Dose: 600 mg Haloperidol (Haloperidol 5 Mg Tab) 10 mg PO QPM [facility] Stop: 06/18/25 20:59 Last Admin: 05/24/25 21:44 Dose: 10 mg Haloperidol (Haloperidol 5 Mg Tab) 5 mg PO QAM [facility] Stop: 06/19/25 08:59 Last Admin: 05/25/25 08:51 Dose: 5 mg Methylprednisolone 40 mg/ (Syringe) 0.64 mls @ 1.5 mls/min IV Q12H [facility] Stop: 06/22/25 17:59 Last Admin: 05/25/25 06:49 Dose: 1.5 mls/min Insulin Aspart (Insulin Aspart Per Unit Charge) 0 units SC ACHS [facility] Stop: 06/19/25 16:29 Last Admin: 05/25/25 12:28 Dose: 4 units Methylphenidate HCl (Methylphenidate Hcl 10 Mg Tablet) 10 mg PO BID@0800,1200 [facility] Stop: 06/02/25 16:44 Last Admin: 05/25/25 12:28 Dose: 10 mg Mirtazapine (Mirtazapine Tab 15 Mg Tab) 30 mg PO HS [facility] Stop: 06/18/25 20:59 Last Admin: 05/24/25 21:45 Dose: 30 mg Miscellaneous (Remove Nicoderm Patch) 1 each N/A DAILY@0859 [facility] Stop: 06/19/25 08:58 Last Admin: 05/25/25 08:56 Dose: 1 each Miscellaneous (Carbohydrates For Hypoglycemia ) 15 - 30 gm PO UD PRN PRN Reason: Hypoglycemia Treatment Stop: 06/19/25 10:44 Nicotine (Nicotine 21 Mg/24 Hr Tdsy) 1 patch TD QAM [facility] Stop: 06/19/25 08:59 Last Admin: 05/25/25 08:51 Dose: 1 patch Pantoprazole Sodium (Pantoprazole 40 Mg Tab) 40 mg PO DAILYBB [facility] Stop: 06/19/25 06:29 Last Admin: 05/25/25 06:49 Dose: 40 mg Propranolol HCl (Propranolol Hcl 20 Mg Tab) 20 mg PO AMHS [facility] Stop: 06/18/25 20:59 Last Admin: 05/25/25 08:51 Dose: 20 mg Umeclidinium/Vilanterol (Umeclidinium/Vilanterol 62.5/25mcg 7 Puffs/Inhaler) 1 puffs INH QAM [facility] Stop: 06/19/25 08:59 Last Admin: 05/25/25 08:51 Dose: 1 puffs Vitamin D (Cholecalciferol 25 Mcg (1000 Units) Tab) 25 mcg PO HS [facility] Stop: 06/18/25 20:59 Last Admin: 05/24/25 21:43 Dose: 25 mcg (5) CKD (chronic kidney disease) stage 3, GFR 30-59 ml/min Chronic kidney disease stage 3 subtype: unspecified whether 3a or 3b Qualified Code(s): N18.30 - Chronic kidney disease, stage 3 unspecified (6) Hypertension Hypertension type: unspecified Qualified Code(s): I10 - Essential (primary) hypertension
[2025-05-26 06:50] LABS: Hematocrit (blood only) 45.7 % (42.0-52.0); Hemoglobin 14.5 g/dl (14.0-18.0); Immature Granulocytes # (auto) 0.16 K/uL (0.01-0.20); Immature Granulocytes % (auto) 1.0 %; Mean Corpuscular Hemoglobin 27.9 pg (25.0-34.0); Mean Corpuscular Volume 87.9 fL (80.0-100.0); Platelet Count 216 K/uL (130-400); RDW Standard Deviation 50.4 fL (36.4-46.3); Red Blood Count 5.20 M/uL (4.70-6.10); White Blood Count 15.91 K/ul (4.8-10.8)
[2025-05-26 07:59] LABS: Anion Gap 5.0 (3-11); Blood Urea Nitrogen 61.0 mg/dl (6-23); Calcium 8.2 mg/dl (8.6-10.3); Carbon Dioxide 27.0 mmol/L (21-32); Chloride 105.0 mmol/L (98-107); Creatinine Clr Calc Pharmacy 44.8 ml/min; Glucose 149.0 mg/dl (70-99(Fasting)); Potassium 4.6 mmol/L (3.5-5.1); Sodium 137.0 mmol/L (136-145)
[2025-05-26] MEDS: predniSONE 20 MG TAB PO SCH (08:55)
--- NOTE | 2025-05-26 11:21 | Hospitalist Progress Note ---
Date of Service May 26, 2025 Assessment & Plan (1) COPD exacerbation: (2) Viral respiratory infection: (3) Chronic paranoid schizophrenia: (4) Acute hypoxemic respiratory failure: (5) CKD (chronic kidney disease) stage 3, GFR 30-59 ml/min: (6) Hypertension: (7) Tobacco use disorder: Plan 74 y/o male with COPD, ongoing tobacco use, hx NSVT, prediabetes, prior CVA, chronic paranoid schizophrenia, HTN, CKD3, and other history as outlined below who presents to the ED today with low oxygen levels and wheezing, preceded by two weeks of URI symptoms. He was treated as an outpatient with ten days of prednisone and Augmentin but no significant relief. Symptoms seem to be worsening since finishing these medications. In the ED, he was noted to be hypoxic, but improved with 2L of O2 via NC. He was noted to be wheezing, required an hour long nebulizer treatment. [employer] respiratory panel was positive for entero-/rhinovirus, negative for flu/COVID/RSV. VBG showed a pH of 7.37, pCO2 elevated at 58, normal pO2 and HCO3. Noted to have a leukocytosis with WBC count 15.30 (infection vs. recent prednisone use). Pt was referred for admission due to hypoxia and failure of outpatient management of COPD exacerbation. #Acute hypoxic respiratory failure #COPD exacerbation #Viral respiratory infection - entero-/rhino-virus positive - CT chest w/ Severe COPD/emphysema. - IV Solu-Medrol 40 mg Q8 hours, continue, taper once wheezing starts to improve. - Broad-spectrum antibiotic coverage with cefepime/doxycycline - Sputum culture sent, MRSA swab neg. - DuoNeb QID scheduled and prn - Guaifenesin 600 mg BID, incentive spirometry, flutter valve - Pt improving w/ sob and feels better per him, monitor. Clinically improving and the IV Solu-Medrol has been changed to prednisone Continues to wheeze but without any fever and/or chills Will continue current medications and likely discharge in a day or 2 His condition has not improved and is still having wheezing with shortness of breath and requiring 2.5 L Will continue current management and likely discharge tomorrow if he improves Clinically not any better and he still has significant wheezing and significant desaturation with minimal activities Will decrease IV Solu-Medrol to twice daily, give 1 dose of Lasix IV and start Mucomyst He has been little better today and will give additional dose of 40 mg of Lasix today Continue with current management and likely discharge on Monday he has been much better with minimal wheezing at rest and has not been requiring any oxygen 2 steps O2 saturation test did not show any requirement of oxygen Please he will be discharged this afternoon #Tobacco use disorder - continues to smoke 2 1/2 PPD - Smoking cessation advised - c/w Nicotine patch Strongly advised to quit smoking #CKD3 - baseline creatinine around 1.3 - Chronic, stable, Cr slightly up to 1.5 today, labs in AM, avoid nephrotoxics. Creatinine remains elevated at 1.59 Strongly advised to drink more fluid and will avoid giving any intravenous fluid Kidney function is slightly better and will not give any Lasix to make it worse Creatinine remains stable and shows minimal improvement creatinine remains mildly elevated at 1.56 #Hypertension- Chronic, stable - continue outpatient meds #Chronic paranoid schizophrenia - Chronic, stable - follows with psychiatry - Continue outpatient regimen #Prediabetes: ho, glucose elevated, will get A1c w/ AM labs, ssi while in hospital. Hemoglobin A1c is 6.9 Code status: full code DVT prophylaxis: Lovenox He will be discharged this afternoon Admission and Anticipated Discharge Date Admission Date: May 19, 2025 Subjective The patient was seen and examined in telemetry unit He has been complaining of wheezing and no shortness of breath this morning Saturating normally on 2 L Denies any chest pain and/or palpitations, no abdominal pain nausea or vomiting and no fever and no chills 05/22/2025 The patient was seen and examined in telemetry with Continues to wheeze a lot with minimal shortness of breath at rest Requiring 2.5 L of oxygen to maintain saturation 05/23/2025 The patient was seen and examined in telemetry unit He has been feeling a little better but he still complains to have shortness of breath at rest with profuse wheezing Saturation has been dropping with minimal exertion 05/24/2025 The patient was seen and examined in telemetry unit He seems to be little better today with less wheezing and shortness of breath at rest He still has significant positive fluid balance 05/25/2025 Patient was seen and examined in telemetry unit He has been much better today with minimal wheezing and no shortness of breath at rest Still on 2 L of nasal cannula Will get 8-8 steps O2 saturation test tomorrow prior to discharge 05/26/2025 The patient was seen and examined in telemetry unit He has been feeling much better with minimal wheezing but no shortness of breath Denies any cough and he has been ambulating in the room without any difficulties He underwent 2 steps O2 saturation test and he did not require any oxygen He will be discharged this afternoon Review of Systems Review of Systems: All systems reviewed and are unremarkable except as noted below Physical Exam Physical Exam: Lying in bed with moderate shortness of breath at rest Constitutional: well developed, well nourished, + ill appearing and + obese Eyes: PERRL, conjunctivae normal, anicteric sclerae ENMT: external ear and nose normal, oropharynx normal Neck: trachea midline, no thyromegaly Respiratory: + respiratory distress Auscultation: + diminished lung sounds ( improved a lot), + crackles (Minimal crackles at the bases ) and + wheezes (Wheezing all over) Cardiovascular: Rate/Rhythm: regular rate and regular rhythm; not tachycardic Heart Sounds: normal S1 and normal S2; no murmur Extremities: no edema Gastrointestinal (Abdomen): Inspection/Auscultation: normal bowel sounds; abdomen not distended Percussion/Palpation: abdomen soft; abdomen nontender Musculoskeletal: No acute arthritis involving any of the joint Neurologic: normal touch/pain/proprioception and moves all extremities; no focal motor deficits Lymphatic: no cervical or axillary lymphadenopathy Results & Data Results & Data Vital Signs (Past 12 Hours) Vital Signs Temp Pulse Pulse Pulse Pulse Pulse Pulse 05/26/25 11:10 87 05/26/25 10:59 92 H 83 77 05/26/25 07:11 36.6 C 77 05/26/25 07:06 75 05/26/25 03:00 36.7 C 62 05/26/25 00:13 81 Resp Resp Resp Resp BP BP Pulse Ox 05/26/25 11:10 18 92 05/26/25 10:59 20 18 18 05/26/25 07:11 17 137/84 94 05/26/25 07:06 16 94 05/26/25 03:00 20 144/92 H 94 05/26/25 00:13 Pulse Ox Pulse Ox Pulse Ox O2 Del Method O2 Flow Rate 05/26/25 11:10 Room Air 05/26/25 10:59 91 92 93 05/26/25 07:11 Nasal Cannula 2 05/26/25 07:06 Nasal Cannula 2 05/26/25 03:00 Nasal Cannula 2 05/26/25 00:13 Laboratory Results Short CBC 05/26/25 Range/Units 06:03 WBC 15.91 H (4.8-10.8) K/ul Hgb 14.5 (14.0-18.0) g/dl Hct 45.7 (42.0-52.0) % Plt Count 216 (130-400) K/uL BMP 05/26/25 06:03 Sodium 137 Potassium 4.6 Chloride 105 Carbon Dioxide 27 BUN 61 H Creatinine 1.56 H Glucose 149 H Calcium 8.2 L Medications Administered Current Inpatient Medications Acetaminophen (Acetaminophen 325 Mg Tab) 650 mg PO Q4H PRN PRN Reason: Pain or Fever Stop: 06/18/25 16:32 Acetylcysteine (Acetylcysteine 10% Inhal Soln 4 Ml Dispensed By Resp.) 5 ml INH BIDR [facility] Stop: 06/22/25 18:59 Last Admin: 05/26/25 07:03 Dose: 5 ml Albuterol (Albut/Ipratrop 3mg/0.5mg Neb 3 Ml Vial) 3 ml NEB QIDR [facility]; Protocol Stop: 06/18/25 14:59 Last Admin: 05/26/25 11:10 Dose: 3 ml Amlodipine Besylate (Amlodipine Besylate 5 Mg Tab) 5 mg PO QAM [facility] Stop: 06/19/25 08:59 Last Admin: 05/26/25 08:54 Dose: 5 mg Aspirin (Aspirin 81 Mg Chew) 81 mg PO QAM [facility] Stop: 06/19/25 08:59 Last Admin: 05/26/25 08:57 Dose: 81 mg Atorvastatin Calcium (Atorvastatin 20 Mg Tab) 20 mg PO HS [facility] Stop: 06/18/25 20:59 Last Admin: 05/25/25 21:20 Dose: 20 mg Dextrose (Dextrose 50% 50 Ml Syringe) 25 - 50 ml IV UD PRN; Protocol PRN Reason: Hypoglycemia Protocol Stop: 06/19/25 10:44 Fluoxetine HCl (Fluoxetine Hcl 20 Mg Cap) 40 mg PO QPM [facility] Stop: 06/18/25 20:59 Last Admin: 05/25/25 21:21 Dose: 40 mg Glucagon (Glucagon For Inj 1 Mg Vial) 1 mg SQ UD PRN; Protocol PRN Reason: Hypoglycemia Protocol Stop: 06/19/25 10:44 Glucose (Glucose 40% Gel 15 Gm Tube) 15 - 30 gm PO UD PRN; Protocol PRN Reason: Hypoglycemia Protocol Stop: 06/19/25 10:44 Glucose (Glucose 10 Tab/Tube) 4 - 8 tab PO UD PRN; Protocol PRN Reason: Hypoglycemia Protocol Stop: 06/19/25 10:44 Guaifenesin (Guaifenesin 600 Mg Tabcr) 600 mg PO Q12 [facility] Stop: 06/18/25 20:59 Last Admin: 05/26/25 08:53 Dose: 600 mg Haloperidol (Haloperidol 5 Mg Tab) 10 mg PO QPM [facility] Stop: 06/18/25 20:59 Last Admin: 05/25/25 21:19 Dose: 10 mg Haloperidol (Haloperidol 5 Mg Tab) 5 mg PO QAM [facility] Stop: 06/19/25 08:59 Last Admin: 05/26/25 08:56 Dose: 5 mg Insulin Aspart (Insulin Aspart Per Unit Charge) 0 units SC ACHS [facility] Stop: 06/19/25 16:29 Last Admin: 05/26/25 08:49 Dose: 4 units Methylphenidate HCl (Methylphenidate Hcl 10 Mg Tablet) 10 mg PO BID@0800,1200 [facility] Stop: 06/02/25 16:44 Last Admin: 05/26/25 08:57 Dose: 10 mg Mirtazapine (Mirtazapine Tab 15 Mg Tab) 30 mg PO HS [facility] Stop: 06/18/25 20:59 Last Admin: 05/25/25 21:20 Dose: 30 mg Miscellaneous (Remove Nicoderm Patch) 1 each N/A DAILY@0859 [facility] Stop: 06/19/25 08:58 Last Admin: 05/26/25 08:54 Dose: 1 each Miscellaneous (Carbohydrates For Hypoglycemia ) 15 - 30 gm PO UD PRN PRN Reason: Hypoglycemia Treatment Stop: 06/19/25 10:44 Nicotine (Nicotine 21 Mg/24 Hr Tdsy) 1 patch TD QAM [facility] Stop: 06/19/25 08:59 Last Admin: 05/26/25 08:53 Dose: 1 patch Pantoprazole Sodium (Pantoprazole 40 Mg Tab) 40 mg PO DAILYBB [facility] Stop: 06/19/25 06:29 Last Admin: 05/26/25 06:21 Dose: 40 mg Prednisone (Prednisone 20 Mg Tab) 40 mg PO DAILY [facility] Stop: 06/25/25 08:59 Last Admin: 05/26/25 08:55 Dose: 40 mg Propranolol HCl (Propranolol Hcl 20 Mg Tab) 20 mg PO AMHS [facility] Stop: 06/18/25 20:59 Last Admin: 05/26/25 08:54 Dose: 20 mg Umeclidinium/Vilanterol (Umeclidinium/Vilanterol 62.5/25mcg 7 Puffs/Inhaler) 1 puffs INH QAM [facility] Stop: 06/19/25 08:59 Last Admin: 05/26/25 08:50 Dose: 1 puffs Vitamin D (Cholecalciferol 25 Mcg (1000 Units) Tab) 25 mcg PO HS [facility] Stop: 06/18/25 20:59 Last Admin: 05/25/25 21:19 Dose: 25 mcg (5) CKD (chronic kidney disease) stage 3, GFR 30-59 ml/min Chronic kidney disease stage 3 subtype: unspecified whether 3a or 3b Qualified Code(s): N18.30 - Chronic kidney disease, stage 3 unspecified (6) Hypertension Hypertension type: unspecified Qualified Code(s): I10 - Essential (primary) hypertension
[2025-05-27 02:44] VITALS: BP 125/75
[2025-05-27 08:15] VITALS: RESP 20; TEMP 98.1; O2SAT 99
--- NOTE | 2025-05-27 08:38 | Hospitalist Progress Note ---
Date of Service May 27, 2025 Assessment & Plan (1) COPD exacerbation: (2) Viral respiratory infection: (3) Chronic paranoid schizophrenia: (4) Acute hypoxemic respiratory failure: (5) CKD (chronic kidney disease) stage 3, GFR 30-59 ml/min: (6) Hypertension: (7) Tobacco use disorder: Plan 74 y/o male with COPD, ongoing tobacco use, hx NSVT, prediabetes, prior CVA, chronic paranoid schizophrenia, HTN, CKD3, and other history as outlined below who presents to the ED today with low oxygen levels and wheezing, preceded by two weeks of URI symptoms. He was treated as an outpatient with ten days of prednisone and Augmentin but no significant relief. Symptoms seem to be worsening since finishing these medications. In the ED, he was noted to be hypoxic, but improved with 2L of O2 via NC. He was noted to be wheezing, required an hour long nebulizer treatment. [employer] respiratory panel was positive for entero-/rhinovirus, negative for flu/COVID/RSV. VBG showed a pH of 7.37, pCO2 elevated at 58, normal pO2 and HCO3. Noted to have a leukocytosis with WBC count 15.30 (infection vs. recent prednisone use). Pt was referred for admission due to hypoxia and failure of outpatient management of COPD exacerbation. #Acute hypoxic respiratory failure #COPD exacerbation #Viral respiratory infection - entero-/rhino-virus positive - CT chest w/ Severe COPD/emphysema. - IV Solu-Medrol 40 mg Q8 hours, continue, taper once wheezing starts to improve. - Broad-spectrum antibiotic coverage with cefepime/doxycycline - Sputum culture sent, MRSA swab neg. - DuoNeb QID scheduled and prn - Guaifenesin 600 mg BID, incentive spirometry, flutter valve - Pt improving w/ sob and feels better per him, monitor. Clinically improving and the IV Solu-Medrol has been changed to prednisone Continues to wheeze but without any fever and/or chills Will continue current medications and likely discharge in a day or 2 His condition has not improved and is still having wheezing with shortness of breath and requiring 2.5 L Will continue current management and likely discharge tomorrow if he improves Clinically not any better and he still has significant wheezing and significant desaturation with minimal activities Will decrease IV Solu-Medrol to twice daily, give 1 dose of Lasix IV and start Mucomyst He has been little better today and will give additional dose of 40 mg of Lasix today Continue with current management and likely discharge on Monday he has been much better with minimal wheezing at rest and has not been requiring any oxygen 2 steps O2 saturation test did not show any requirement of oxygen - he has been stable and denies any significant symptoms except minimal wheezing but no shortness of breath He will be discharged to [facility] this morning #Tobacco use disorder - continues to smoke 2 1/2 PPD - Smoking cessation advised - c/w Nicotine patch Strongly advised to quit smoking #CKD3 - baseline creatinine around 1.3 - Chronic, stable, Cr slightly up to 1.5 today, labs in AM, avoid nephrotoxics. Creatinine remains elevated at 1.59 Strongly advised to drink more fluid and will avoid giving any intravenous fluid Kidney function is slightly better and will not give any Lasix to make it worse Creatinine remains stable and shows minimal improvement creatinine remains mildly elevated at 1.56 He was advised to drink more fluid #Hypertension- Chronic, stable - continue outpatient meds #Chronic paranoid schizophrenia - Chronic, stable - follows with psychiatry - Continue outpatient regimen #Prediabetes: ho, glucose elevated, will get A1c w/ AM labs, ssi while in hospital. Hemoglobin A1c is 6.9 Code status: full code DVT prophylaxis: Lovenox He will be discharged this morning Admission and Anticipated Discharge Date Admission Date: May 19, 2025 Subjective The patient was seen and examined in telemetry unit He has been complaining of wheezing and no shortness of breath this morning Saturating normally on 2 L Denies any chest pain and/or palpitations, no abdominal pain nausea or vomiting and no fever and no chills 05/22/2025 The patient was seen and examined in telemetry with Continues to wheeze a lot with minimal shortness of breath at rest Requiring 2.5 L of oxygen to maintain saturation 05/23/2025 The patient was seen and examined in telemetry unit He has been feeling a little better but he still complains to have shortness of breath at rest with profuse wheezing Saturation has been dropping with minimal exertion 05/24/2025 The patient was seen and examined in telemetry unit He seems to be little better today with less wheezing and shortness of breath at rest He still has significant positive fluid balance 05/25/2025 Patient was seen and examined in telemetry unit He has been much better today with minimal wheezing and no shortness of breath at rest Still on 2 L of nasal cannula Will get 8-8 steps O2 saturation test tomorrow prior to discharge 05/26/2025 The patient was seen and examined in telemetry unit He has been feeling much better with minimal wheezing but no shortness of breath Denies any cough and he has been ambulating in the room without any difficulties He underwent 2 steps O2 saturation test and he did not require any oxygen He will be discharged this afternoon 05/27/2025 Seen and examined in telemetry unit He has been doing all right denies any significant symptoms He has minimal wheezing but no shortness of breath at rest or with ambulation He will be discharged this morning Review of Systems Review of Systems: All systems reviewed and are unremarkable except as noted below Physical Exam Physical Exam: Lying in bed with moderate shortness of breath at rest Constitutional: well developed, well nourished, + ill appearing and + obese Eyes: PERRL, conjunctivae normal, anicteric sclerae ENMT: external ear and nose normal, oropharynx normal Neck: trachea midline, no thyromegaly Respiratory: + respiratory distress Auscultation: + crackles (Minimal crackles at the bases ) and + wheezes (Wheezing all over) Cardiovascular: Rate/Rhythm: regular rate and regular rhythm; not tachycardic Heart Sounds: normal S1 and normal S2; no murmur Extremities: no edema Gastrointestinal (Abdomen): Inspection/Auscultation: normal bowel sounds; abdomen not distended Percussion/Palpation: abdomen soft; abdomen nontender Musculoskeletal: No acute arthritis involving any of the joint Neurologic: normal touch/pain/proprioception and moves all extremities; no focal motor deficits Lymphatic: no cervical or axillary lymphadenopathy Results & Data Results & Data Vital Signs (Past 12 Hours) Vital Signs Temp Pulse Pulse Pulse Resp BP Pulse Ox 05/27/25 08:14 36.7 C 75 20 99 05/27/25 07:45 05/27/25 07:07 76 18 92 05/27/25 05:47 72 05/27/25 03:00 05/27/25 02:43 36.6 C 78 18 125/75 91 05/26/25 23:03 36.5 C 84 20 156/88 H 95 05/26/25 21:00 O2 Del Method O2 Del Method 05/27/25 08:14 Nasal Cannula 05/27/25 07:45 Room Air 05/27/25 07:07 Room Air 05/27/25 05:47 05/27/25 03:00 Room Air 05/27/25 02:43 Room Air 05/26/25 23:03 Room Air 05/26/25 21:00 Room Air Medications Administered Current Inpatient Medications Acetaminophen (Acetaminophen 325 Mg Tab) 650 mg PO Q4H PRN PRN Reason: Pain or Fever Stop: 06/18/25 16:32 Acetylcysteine (Acetylcysteine 10% Inhal Soln 4 Ml Dispensed By Resp.) 5 ml INH BIDR [facility] Stop: 06/22/25 18:59 Last Admin: 05/27/25 07:07 Dose: 5 ml Albuterol (Albut/Ipratrop 3mg/0.5mg Neb 3 Ml Vial) 3 ml NEB QIDR [facility]; Protocol Stop: 06/18/25 14:59 Last Admin: 05/27/25 07:07 Dose: 3 ml Amlodipine Besylate (Amlodipine Besylate 5 Mg Tab) 5 mg PO QAM [facility] Stop: 06/19/25 08:59 Last Admin: 05/26/25 08:54 Dose: 5 mg Aspirin (Aspirin 81 Mg Chew) 81 mg PO QAM [facility] Stop: 06/19/25 08:59 Last Admin: 05/26/25 08:57 Dose: 81 mg Atorvastatin Calcium (Atorvastatin 20 Mg Tab) 20 mg PO HS [facility] Stop: 06/18/25 20:59 Last Admin: 05/26/25 21:05 Dose: 20 mg Dextrose (Dextrose 50% 50 Ml Syringe) 25 - 50 ml IV UD PRN; Protocol PRN Reason: Hypoglycemia Protocol Stop: 06/19/25 10:44 Fluoxetine HCl (Fluoxetine Hcl 20 Mg Cap) 40 mg PO QPM [facility] Stop: 06/18/25 20:59 Last Admin: 05/26/25 21:04 Dose: 40 mg Glucagon (Glucagon For Inj 1 Mg Vial) 1 mg SQ UD PRN; Protocol PRN Reason: Hypoglycemia Protocol Stop: 06/19/25 10:44 Glucose (Glucose 40% Gel 15 Gm Tube) 15 - 30 gm PO UD PRN; Protocol PRN Reason: Hypoglycemia Protocol Stop: 06/19/25 10:44 Glucose (Glucose 10 Tab/Tube) 4 - 8 tab PO UD PRN; Protocol PRN Reason: Hypoglycemia Protocol Stop: 06/19/25 10:44 Guaifenesin (Guaifenesin 600 Mg Tabcr) 600 mg PO Q12 [facility] Stop: 06/18/25 20:59 Last Admin: 05/26/25 21:05 Dose: 600 mg Haloperidol (Haloperidol 5 Mg Tab) 10 mg PO QPM [facility] Stop: 06/18/25 20:59 Last Admin: 05/26/25 21:05 Dose: 10 mg Haloperidol (Haloperidol 5 Mg Tab) 5 mg PO QAM [facility] Stop: 06/19/25 08:59 Last Admin: 05/26/25 08:56 Dose: 5 mg Insulin Aspart (Insulin Aspart Per Unit Charge) 0 units SC ACHS [facility] Stop: 06/19/25 16:29 Last Admin: 05/26/25 20:56 Dose: 7 units Methylphenidate HCl (Methylphenidate Hcl 10 Mg Tablet) 10 mg PO BID@0800,1200 [facility] Stop: 06/02/25 16:44 Last Admin: 05/26/25 12:34 Dose: 10 mg Mirtazapine (Mirtazapine Tab 15 Mg Tab) 30 mg PO HS [facility] Stop: 06/18/25 20:59 Last Admin: 05/26/25 21:04 Dose: 30 mg Miscellaneous (Remove Nicoderm Patch) 1 each N/A DAILY@0859 [facility] Stop: 06/19/25 08:58 Last Admin: 05/26/25 08:54 Dose: 1 each Miscellaneous (Carbohydrates For Hypoglycemia ) 15 - 30 gm PO UD PRN PRN Reason: Hypoglycemia Treatment Stop: 06/19/25 10:44 Nicotine (Nicotine 21 Mg/24 Hr Tdsy) 1 patch TD QAM [facility] Stop: 06/19/25 08:59 Last Admin: 05/26/25 08:53 Dose: 1 patch Pantoprazole Sodium (Pantoprazole 40 Mg Tab) 40 mg PO DAILYBB [facility] Stop: 06/19/25 06:29 Last Admin: 05/27/25 07:12 Dose: 40 mg Prednisone (Prednisone 20 Mg Tab) 40 mg PO DAILY [facility] Stop: 06/25/25 08:59 Last Admin: 05/26/25 08:55 Dose: 40 mg Propranolol HCl (Propranolol Hcl 20 Mg Tab) 20 mg PO AMHS [facility] Stop: 06/18/25 20:59 Last Admin: 05/26/25 21:04 Dose: 20 mg Umeclidinium/Vilanterol (Umeclidinium/Vilanterol 62.5/25mcg 7 Puffs/Inhaler) 1 puffs INH QAM [facility] Stop: 06/19/25 08:59 Last Admin: 05/26/25 08:50 Dose: 1 puffs Vitamin D (Cholecalciferol 25 Mcg (1000 Units) Tab) 25 mcg PO HS [facility] Stop: 06/18/25 20:59 Last Admin: 05/26/25 21:04 Dose: 25 mcg (5) CKD (chronic kidney disease) stage 3, GFR 30-59 ml/min Chronic kidney disease stage 3 subtype: unspecified whether 3a or 3b Qualified Code(s): N18.30 - Chronic kidney disease, stage 3 unspecified (6) Hypertension Hypertension type: unspecified Qualified Code(s): I10 - Essential (primary) hypertension
[2025-05-27 09:07] VITALS: PULSE 78
--- NOTE | 2025-05-27 14:37 | Discharge Summary ---
Date of Service May 27, 2025 Admission HPI Per Admitting Provider This is a 74 y/o male with COPD, ongoing tobacco use, hx NSVT, prediabetes, prior CVA, chronic paranoid schizophrenia, HTN, CKD3, and other history as outlined below who presents to the ED today with low oxygen levels and wheezing. Pt reports that he started with cold symptoms about two weeks ago. Saw PCP and given ten days of Augmentin and a ten day prednisone taper. Did not feel like symptoms improved much, if at all, on these medications. Today, he was noted to be hypoxic at the [facility] so sent to the ED for evaluation. Pt reports cough that is mostly non-productive although feels like he needs to cough something up. Associated wheezing and dyspnea on exertion. He has been using his nebulizer at home, which provides some relief. He denies chest pain, palpitations, N/V/D. Appetite has been good. Dizzy at times. Still smoking 2 1/2 PPD. Does not use oxygen regularly as outpatient. Follows with [facility] - last visit in February. No specific sick contacts at the [facility]. Admission Exam Per Admitting Provider Physical Exam: General: awake, alert, NAD HEENT: no scleral icterus, nebulizer mask currently in place Neck: supple, trachea midline Heart: RRR Lungs: scattered expiratory wheezing, diminished air movement throughout Abdomen: soft, obese, NT, +BS Extremities: distal pulses intact and equal, no pedal edema Skin: warm, dry, no cyanosis Neurologic: Ox3, no confusion or dysarthria Principal Diagnosis 20COPD exacerbation, Entero-rhinovirus infection, CKD stage III, hypertension, chronic paranoid schizophrenia Discharge Exam Lying in bed with moderate shortness of breath at rest Constitutional well developed, well nourished, + ill appearing and + obese Eyes PERRL, conjunctivae normal, anicteric sclerae ENMT external ear and nose normal, oropharynx normal Neck trachea midline, no thyromegaly Respiratory + respiratory distress Auscultation: + diminished lung sounds ( improved a lot), + crackles (Minimal crackles at the bases ) and + wheezes (Wheezing all over) Cardiovascular Rate/Rhythm: regular rate and regular rhythm; not tachycardic Heart Sounds: normal S1 and normal S2; no murmur Extremities: no edema Gastrointestinal (Abdomen) Inspection/Auscultation: normal bowel sounds; abdomen not distended Percussion/Palpation: abdomen soft; abdomen nontender Neurologic normal touch/pain/proprioception and moves all extremities; no focal motor deficits Lymphatic no cervical or axillary lymphadenopathy Discharge Data Allergies Allergy/AdvReac Type Severity Reaction Status Date / Time lithium Allergy Unknown Verified 12/10/23 19:47 Consultations 05/19/25 14:10 ED Decision to Admit Stat Ordered Studies 05/19/25 15:30 CT chest diagnostic wo con Urgent Diabetes Follow up Diabetes Follow-up Needed for Newly Diagnosed Diabetes Hospital Course (1) COPD exacerbation: (2) Viral respiratory infection: (3) Chronic paranoid schizophrenia: (4) Acute hypoxemic respiratory failure: (5) CKD (chronic kidney disease) stage 3, GFR 30-59 ml/min: (6) Hypertension: (7) Tobacco use disorder: Plan 74 y/o male with COPD, ongoing tobacco use, hx NSVT, prediabetes, prior CVA, chronic paranoid schizophrenia, HTN, CKD3, and other history as outlined below who presents to the ED today with low oxygen levels and wheezing, preceded by two weeks of URI symptoms. He was treated as an outpatient with ten days of prednisone and Augmentin but no significant relief. Symptoms seem to be worsening since finishing these medications. In the ED, he was noted to be hypoxic, but improved with 2L of O2 via NC. He was noted to be wheezing, required an hour long nebulizer treatment. [employer] respiratory panel was positive for entero-/rhinovirus, negative for flu/COVID/RSV. VBG showed a pH of 7.37, pCO2 elevated at 58, normal pO2 and HCO3. Noted to have a leukocytosis with WBC count 15.30 (infection vs. recent prednisone use). Pt was referred for admission due to hypoxia and failure of outpatient management of COPD exacerbation. #Acute hypoxic respiratory failure #COPD exacerbation #Viral respiratory infection - entero-/rhino-virus positive - CT chest w/ Severe COPD/emphysema. - IV Solu-Medrol 40 mg Q8 hours, continue, taper once wheezing starts to improve. - Broad-spectrum antibiotic coverage with cefepime/doxycycline - Sputum culture sent, MRSA swab neg. - DuoNeb QID scheduled and prn - Guaifenesin 600 mg BID, incentive spirometry, flutter valve - Pt improving w/ sob and feels better per him, monitor. Clinically improving and the IV Solu-Medrol has been changed to prednisone Continues to wheeze but without any fever and/or chills Will continue current medications and likely discharge in a day or 2 His condition has not improved and is still having wheezing with shortness of breath and requiring 2.5 L Will continue current management and likely discharge tomorrow if he improves Clinically not any better and he still has significant wheezing and significant desaturation with minimal activities Will decrease IV Solu-Medrol to twice daily, give 1 dose of Lasix IV and start Mucomyst He has been little better today and will give additional dose of 40 mg of Lasix today Continue with current management and likely discharge on Monday he has been much better with minimal wheezing at rest and has not been requiring any oxygen 2 steps O2 saturation test did not show any requirement of oxygen - he has been stable and denies any significant symptoms except minimal wheezing but no shortness of breath He will be discharged to [facility] this morning #Tobacco use disorder - continues to smoke 2 1/2 PPD - Smoking cessation advised - c/w Nicotine patch Strongly advised to quit smoking #CKD3 - baseline creatinine around 1.3 - Chronic, stable, Cr slightly up to 1.5 today, labs in AM, avoid nephrotoxics. Creatinine remains elevated at 1.59 Strongly advised to drink more fluid and will avoid giving any intravenous fluid Kidney function is slightly better and will not give any Lasix to make it worse Creatinine remains stable and shows minimal improvement creatinine remains mildly elevated at 1.56 He was advised to drink more fluid #Hypertension- Chronic, stable - continue outpatient meds #Chronic paranoid schizophrenia - Chronic, stable - follows with psychiatry - Continue outpatient regimen #Prediabetes: ho, glucose elevated, will get A1c w/ AM labs, ssi while in hospital. Hemoglobin A1c is 6.9 Code status: full code DVT prophylaxis: Lovenox He will be discharged this morning Total Time Total Time Spent Total Time Spent (In Minutes): 40 minutes Discharge Plan Discharge Items Patient Disposition: Personal Retirement Reason For Visit: COPD EXACERBATION Discharge Diagnosis: COPD exacerbation, Entero-rhinovirus infection, CKD stage III, hypertension, chronic paranoid schizophrenia Condition on Discharge: Fair Activity: Resume your previous activity Non-emergency contact: Primary Care Provider Call non-emergency contact if: you have any medication questions and your symptoms worsen Follow-up/Referrals: [facility] [Primary Care Provider] - (Please make an appointment with your PCP within 7 days following discharge from the facility) Diet: Carb Consistent or DM2 and Heart Healthy Addtl Attending Provider Instructions: Please take precautions to avoid falls Take your medications as advised Please keep follow-up appointments with your healthcare providers Strongly advised to quit smoking Pending Studies at Discharge: No Stand-Alone Forms: [employer], Smoking Cessation Skilled Items Patient informed of condition?: Yes DNR: No Discharge Level of Care: Other Communicable Disease: No Discharge Prognosis: Stable Lines: None Urinary Catheter: No Medications and DC Order Prescriptions: New nicotine [Nicoderm CQ] 21 mg/24 hr Patch 24 Hour 1 patch transdermal QAM Qty: 30 0RF prednisone 10 mg tablet 10 mg PO DIRECTED Qty: 30 0RF Rx Instructions: 4 tabs p.o. daily for 3 days, 3 tabs p.o. daily for 3 days, 2 tabs p.o. daily for 3 days and then 1 tab p.o. daily for 3 days Continued haloperidol 5 mg tablet 5 mg PO QAM acetaminophen [Tylenol Extra Strength] 500 mg Tablet 1,000 mg PO Q8 PRN (Reason: Fever Or Pain) propranolol 20 mg tablet 20 mg PO AMHS mirtazapine 30 mg tablet 30 mg PO HS cholecalciferol (vitamin D3) [Vitamin D3] 25 mcg (1,000 unit) capsule 25 mcg PO HS fluoxetine 40 mg capsule 40 mg PO QPM methylphenidate HCl 10 mg tablet 10 mg PO BID Rx Instructions: Take at 0800 and 1200 pantoprazole 40 mg tablet,delayed release (DR/EC) 40 mg PO DAILYBB atorvastatin 20 mg tablet 20 mg PO HS aspirin [Children's Aspirin] 81 mg Tablet,Chewable 81 mg PO QAM amlodipine [Norvasc] 5 mg Tablet 5 mg PO QAM Qty: 30 0RF ipratropium-albuterol 0.5 mg-3 mg(2.5 mg base)/3 mL Solution For Nebulization 3 ml NEB Q4H PRN (Reason: shortness of breath or wheezing) Qty: 90 0RF haloperidol decanoate 100 mg/mL solution 100 mg IM Q28D haloperidol 10 mg tablet 10 mg PO QPM albuterol sulfate 90 mcg/actuation HFA aerosol inhaler 2 puff INHALATION Q6H PRN (Reason: Shortness Of Breath Or Wheezing) umeclidinium-vilanterol [Anoro Ellipta] 62.5-25 mcg/actuation blister with device 1 inh INHALATION QAM Discharge Orders: Discharge Order (Routine); Ordered 05/27/25 Ordered By: Chan Packer Admission Data Admit Date/Time: 05/19/25 14:47 Attending Provider: Chan Packer Admit Provider: Olman Head Primary Care Provider: [facility], [facility] Other Providers: Olman Head; Antione Wu Other Interventions: Discharge Summary Assessment (RN) Last Done: 05/27/25 09:06
== END 2025-05-27 10:16 | disposition home or self-care (01) | DRG 190 ==
LOC: ED 10:38 → SUATTDRO 14:47 → 4W 14:47